=== PATIENT | male | born 1940 | race Caucasian/White ===

== ENCOUNTER 2017-03-23 10:47 | Inpatient (IN) | payer MEDICARE ==
[2017-03-23 11:44] LABS: #Eosinphils 0.3 thou/uL (0.0-0.7); #Lymphocytes 1.4 thou/uL (1.20-3.40); #Monocytes 0.9 thou/uL (0.11-0.59); #Neutrophils 5.5 thou/uL (1.40-6.50); %Basophils 0.5 % (0.0-1.0); %Eosinophils 3.5 % (0.0-10.0); Hematocrit 31.6 % (42.0-52.0); Red Blood Cell (RBC) Count 3.27 mill/uL (4.70-6.10); White Blood Cell (WBC) Count 8.1 thou/uL (4.8-10.8)
[2017-03-23 11:58] LABS: Bilirubin Negative (Negative); Blood, Urine Negative (Negative); Glucose, Urine (Dipstick) 100 mg/dL (Negative); Ketone, Urine Negative (Negative); Nitrite Negative (Negative); Protein, Urine (Dipstick) 300 mg/dL (Neg-Trace); Urobilinogen 0.2 mg/dL (0.2-1.0)
[2017-03-23 12:00] LABS: Lactic Acid - Sepsis 1.5 mmol/L (0.5-2.2)
[2017-03-23 12:03] LABS: Bacteria/HPF None Seen HPF (None Seen); Hyaline Casts/LPF 0-3 HYALINE CAST LPF (0-3 Hyaline); Squamous Epithelial None Seen HPF (0-3); WBC/HPF None Seen HPF (0-3)
[2017-03-23 12:06] LABS: ALT (SGPT) 33 U/L (8-55); AST (SGOT) 21 U/L (5-34); Alkaline Phosphatase 53 U/L (40-150); Anion Gap 14 mmol/L (10-20); BUN (Urea Nitrogen) 30 mg/dL (8.4-25.7); Bilirubin, Total 0.4 mg/dL (0.2-1.2); CK (CPK) 81 U/L (30-200); Calc. Creatinine Clearance 0 mL/min (70-130); Calcium 9.5 mg/dL (7.8-10.44); Carbon Dioxide 24 mmol/L (23-31); Chloride 94 mmol/L (98-107); Estimated GFR-MDRD 25; Globulin 3.3 g/dL (2.4-3.5); Lipase 34 U/L (8-78); Protein, Total 7.2 g/dL (5.8-8.1)
[2017-03-23 12:16] LABS: Troponin I 0.014 ng/mL (< 0.028)
--- NOTE | 2017-03-23 12:16 | RAD ---
CHEST 1 VIEW: HISTORY: Dyspnea. COMPARISON: 06/22/16. FINDINGS: The cardiac silhouette is magnified and enlarged. Pulmonary vasculature is upper limits of normal. Mediastinum is midline with aortic calcification and postoperative changes. Old right rib fracture s are evident. IMPRESSION: Cardiomegaly. No evidence of pulmonary edema. POS: [facility]
[2017-03-23 12:55] LABS: Oxyhemoglobin 96.3 % (94.0-97.0); Sodium 128 mmol/L (135-148)
[2017-03-23] MEDS ORDERED: Calcium Carbonate 500 MG ChewTAB PO PRN (12:55)
[2017-03-23] MEDS ORDERED: Guaifenesin DM 100-10/5 ML UDCUP PO PRN (12:55)
[2017-03-23] MEDS ORDERED: Acetaminophen 325 MG TAB PO PRN (12:55)
[2017-03-23] MEDS ORDERED: Ondansetron HCl/PF 4 MG/2 ML Vial IVP PRN (12:55)
--- NOTE | 2017-03-23 12:56 | CT ---
CT BRAIN WITHOUT CONTRAST: HISTORY: Altered mental status. Confusion. FINDINGS: Noncontrast-enhanced CT images of the brain are obtained from the base of the skull through the vert ex. Brain and bone windows are obtained. Noncontrast-enhanced CT images of the brain demonstrate calcification of the right and left vertebra l arteries. There is mild cortical atrophy and deep white matter ischemic changes. No acute intrac ranial masses, hemorrhages, strokes, or contusions seen. IMPRESSION: Cortical atrophy and deep white matter ischemic changes. POS: [facility]
[2017-03-23 13:00] LABS: Mode BIPAP; Pressure Support 10 cmH2O; Vent NO
[2017-03-23] MEDS ORDERED: Enoxaparin Sodium 40 MG/0.4 ML SYRINGE SC SCH (13:00)
[2017-03-23] MEDS ORDERED: HumaLOG 300 UNITS/3 ML VIAL SC PRN (13:01)
[2017-03-23] MEDS ORDERED: Dextrose 5% in Water 1,000 ML IV PRN ×2 (13:01→14:16)
[2017-03-23] MEDS ORDERED: Dextrose 50% Abboject 50 ML SYRINGE SLOW IVP PRN ×2 (13:01→14:16)
[2017-03-23] MEDS ORDERED: Furosemide 40 MG/4 ML VIAL ONE (13:21)
[2017-03-23] MEDS ORDERED: Enoxaparin Sodium 40 MG/0.4 ML SYRINGE ONE (13:21)
--- NOTE | 2017-03-23 14:21 | PDOC.EVN ---
Event Note - Event Note Event Note: pt seen and examined. H & p dictated #[id number]
[2017-03-23] MEDS ORDERED: Nitroglycerin 2% Ointment 1 INCH/1 GM Packet ONE (14:23)
[2017-03-23 15:26] LABS: Troponin I 0.016 ng/mL (< 0.028)
--- NOTE | 2017-03-23 15:36 | HP ---
CHIEF COMPLAINT: Shortness of breath. HISTORY OF PRESENT ILLNESS: The patient is a 77-year-old male with past medical history significant for type 2 diabetes mellitus; hypertension; coronary artery disease, status post coronary artery by pass surgery; peripheral vascular disease; right BKA and left BKA. The patient presented to the ER with some confusion. The patient was extremely short of breath as per family, he also had cough. I n the ER, the patient was noted to have respiratory distress and was placed on BiPAP, the patient im proved and his mental status cleared. He was found to have congestive heart failure and he has been admitted for this problem. Patient lives alone. He is awake at this time and says shortness of br eath is better. He only is having some discomfort, tolerating the BiPAP. He denies any chest pain. He denies any wheezing. He did have a dry cough at home. He denies any abdominal pain, nausea, o r vomiting. PAST MEDICAL HISTORY: 1. Type 2 diabetes mellitus. 2. PVD. 3. Hypertension. 4. Coronary artery disease. 5. Status post coronary artery bypass surgery. 6. Bilateral lower extremity amputation. PAST SURGICAL HISTORY: He has had bypass surgery and amputation. The patient has a pilonidal cyst surgery and left wrist surgery. ALLERGIES: AMBIEN. MEDICATION: Medication list is not available to me. SOCIAL HISTORY: The patient lives alone. He denies any current history of smoking. He says used t o smoke in the past. Denies substance abuse or ETOH abuse. REVIEW OF SYSTEMS: Constitutional: No history of fever, weight loss, or weight gain. HEENT: No v isual disturbances, hearing problems, no difficulty in chewing or swallowing. No headache. Cardiac : As per history of present illness. Respiratory: As per history of present illness. Gastrointes tinal: No abdominal pain, nausea, vomiting, diarrhea, black stools or blood in stools. Genitourina ry: No dysuria, burning, frequency, or hematuria. Neurological: As per history of present illness . No history of tingling, numbness, or focal weakness. Patient is nonambulatory. Hematological: No history of easy bruising or bleeding. Musculoskeletal: The patient has bilateral lower extremit y amputee. Skin: No petechia or rashes. PHYSICAL EXAMINATION: GENERAL: This is a morbidly obese elderly male who is on BiPAP. He is awake, but still appears sli ghtly short of breath. VITAL SIGNS: His blood pressure on admission was 183/56, temperature 98, pulse rate is 74, sinus rh ythm on the monitor, O2 sat of 97.8, respirations 22. HEENT: Normocephalic, atraumatic. Pupils are reactive to light and accommodation. No pallor, no i cterus. Oral cavity shows tongue is central. No central cyanosis or pallor. NECK: Supple. No thyromegaly, no JVD, no bruit. CHEST: Diminished breath sounds at bases, bilateral crackles present. CARDIOVASCULAR: S1, S2 normal. No S3, S4, or murmur. ABDOMEN: Morbidly obese, soft, nontender. Bowel sounds active. No guarding or rebound. No free f luid, no masses. NEUROLOGICAL: No focal deficit. EXTREMITIES: The patient has bilateral lower extremity amputee. LABORATORY DATA: White count is 8.1, hemoglobin 10.8, hematocrit 31.6, platelet count is 218. Sodi um 127, potassium 4.8, chloride 94, CO2 of 24, anion gap 14, BUN 30, creatinine 2.48. This is sligh tly elevated as compared to his previous visit in December. Glucose 220. BNP 600. As per previous rec ords, he had 2D echo in 06/2016. EF is 40% to 45%. ABG done in the ER shows pH of 7.41, pO2 of 115 , this is on FIO2 of 30%, pCO2 37.9. UA shows proteinuria and glycosuria, otherwise unremarkable. Chest x-ray shows cardiomegaly, no evidence of pulmonary edema. Old right rib fractures. CT of hea d shows chronic changes, other than no acute abnormality. ASSESSMENT AND PLAN: 1. Acute respiratory failure. 2. Hypertensive urgency. 3. Congestive heart failure. 4. Left ventricle ejection fraction of 40% to 45% in 12/2016. 5. Anemia of chronic disease. 6. Acute renal failure/chronic kidney disease. 7. Peripheral vascular disease. 8. Status post bilateral amputation. 9. Dilutional hyponatremia. 10. Uncontrolled diabetes mellitus. 11. Morbid obesity. At this present time, the patient will be transferred to IMU. We are going to start him on IV Lasix . We will adjust his blood pressure medication. Continue with BiPAP. We will get Cardiology and P ulmonary consultation. We will adjust his diabetic medication, put him on sliding scale insulin cov erage. We will check another echocardiogram since the last one was more than 6 months ago. We will follow serial cardiac isoenzymes. We will monitor his renal function. Add Lovenox for DVT prophyl axis. We will also check a D-dimer. The patient is at risk for having PE given he is relative immo bility. We will review his home medication, Protonix for stress ulcer prophylaxis. Further recomme ndations will be made depending on course of clinical events.
[2017-03-23 16:53] VITALS: BMI 41.2
[2017-03-23] MEDS: Furosemide 40 MG/4 ML VIAL SLOW IVP SCH (17:34)
[2017-03-23] MEDS: Insulin Regular 300 UNITS/3 ML VIAL SC PRN (18:01)
[2017-03-23 18:10] LABS: Troponin I 0.028 ng/mL (< 0.028)
[2017-03-23] MEDS: Carvedilol 25 MG TAB PO SCH (20:39)
[2017-03-23] MEDS ORDERED: Docusate 100 MG CAP PO SCH (21:00)
[2017-03-24 05:10] LABS: Anion Gap 14 mmol/L (10-20); BUN (Urea Nitrogen) 34 mg/dL (8.4-25.7); Calc. Creatinine Clearance 31 mL/min (70-130); Calcium 9.3 mg/dL (7.8-10.44); Carbon Dioxide 25 mmol/L (23-31); Chloride 96 mmol/L (98-107); Estimated GFR-MDRD 24
[2017-03-24 05:49] LABS: Hematocrit 30.7 % (42.0-52.0); Macrocytosis SLIGHT = 6-15 cells (100X) (0-5/hpf); Mean Platelet Volume 7.2 fL (7.4-10.4); Neutrophil 53 % (42-75); Polychromasia SLIGHT = 2-3 cells (100X) (0-2/hpf); Reactive Lymphocytes 1 % (0-10); Red Blood Cell (RBC) Count 3.17 mill/uL (4.70-6.10); White Blood Cell (WBC) Count 5.9 thou/uL (4.8-10.8)
[2017-03-24] MEDS: Insulin Regular 300 UNITS/3 ML VIAL SC PRN ×2 (05:59→11:28)
[2017-03-24] MEDS: Furosemide 40 MG/4 ML VIAL SLOW IVP SCH ×2 (05:59→14:22)
[2017-03-24] MEDS ORDERED: Spironolactone 25 MG TAB PO SCH (08:00)
[2017-03-24] MEDS: Docusate 100 MG CAP PO SCH (09:24)
[2017-03-24] MEDS: Alogliptin Benzoate 6.25 MG TABLET PO SCH (09:24)
[2017-03-24] MEDS: Carvedilol 25 MG TAB PO SCH ×2 (09:24→20:40)
[2017-03-24] MEDS: Aspirin 81 mg Enteric Coated Tablet PO SCH (09:24)
[2017-03-24] MEDS: Enoxaparin Sodium 30 MG/0.3 ML SYRINGE SC SCH (09:25)
[2017-03-24] MEDS: Famotidine/PF 20 mg/2ml Vial SLOW IVP SCH (09:25)
--- NOTE | 2017-03-24 12:11 | PDOC.PN ---
- Subjective Encounter Start Date: 03/24/17 Encounter Start Time: 10:45 -: non-verbal Pt seen and examined. Non verbal and hard to arouse. Chart reviewe din its entrety. Skyla sis my first visit with this patient. No Fevers, actually hypothermic and required Madison Hugger overnight, now more stable. BP stablized more andmore overnight iwth fluids, no in the low normal range. Pt non verbal, ROS not obtainable - Objective Resuscitation Status: FULL MAR Reviewed: Yes Vital Signs & Weight: Vital Signs (12 hours) Temp Pulse Resp BP BP Pulse Ox 03/24/17 11:23 98.2 F 67 20 124/56 L 95 03/24/17 09:25 156/75 H 03/24/17 09:24 69 03/24/17 07:21 98.3 F 69 22 H 95 03/24/17 06:50 97.7 F 65 20 148/37 H 94 L 03/24/17 04:00 98.3 F 69 22 H 145/57 H 96 Weight Weight 210 lb 8 oz I&O: 03/23/17 03/24/17 03/25/17 06:59 06:59 06:59 Intake Total 580 Output Total 950 500 Balance -370 -500 Result Diagrams: 03/24/17 04:27 03/24/17 04:27 Additional Labs: Accuchecks 03/24/17 03/24/17 03/23/17 10:54 05:52 20:13 POC Glucose 270 H 170 H 217 H 03/23/17 16:59 POC Glucose 240 H Radiology Reviewed by me: Yes EKG Reviewed by me: Yes Phys Exam - Physical Examination cachectic, [id number]-[id number] HEENT: sclera anicteric, oral pharynx no lesions mucous membranes dry, no lesions Neck: no nodes, no JVD, supple right dense crackles, left areated well Cardiovascular: RRR, no significant murmur, no rub Gastrointestinal: soft, non-tender, 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, positive bowel sounds Musculoskeletal: pulses present, edema present doesnt follow commands Lymphatic: no nodes Skin: no rash Deviation from normal: mild dehydration Dx/Plan (1) CKD (chronic kidney disease) stage 3, GFR 30-59 ml/min Code(s): N18.3 - CHRONIC KIDNEY DISEASE, STAGE 3 (MODERATE) Status: Chronic (2) Hyponatremia Code(s): E87.1 - HYPO-OSMOLALITY AND HYPONATREMIA Status: Acute (3) Severe sepsis Code(s): A41.9 - SEPSIS, UNSPECIFIED ORGANISM; R65.20 - SEVERE SEPSIS WITHOUT SEPTIC SHOCK Status: Resolved Comment: CP has come upwith fluids, JUAN, hypothermia, tachycardia, bacterial pneumonia (4) JUAN (acute kidney injury) Code(s): N17.9 - ACUTE KIDNEY FAILURE, UNSPECIFIED Status: Acute Comment: acute kidney injury on CKD 3. caseline Cr around 1.6-2. At 2.58 at present (5) Acute on chronic combined systolic and diastolic heart failure Code(s): I50.43 - ACUTE ON CHRONIC COMBINED SYSTOLIC AND DIASTOLIC HRT FAIL Status: Acute Comment: ef 40-45%. decreaase IV fluids now that BP is more normal (6) CAP (community acquired pneumonia) Code(s): J18.9 - PNEUMONIA, UNSPECIFIED ORGANISM Status: Acute Qualifiers: Laterality: right Lung location: unspecified part of lung Qualified Code( s): J18.9 - Pneumonia, unspecified organism Comment: susp Pneumococcus (7) Diabetes Code(s): E11.9 - TYPE 2 DIABETES MELLITUS WITHOUT COMPLICATIONS Status: Chronic Qualifiers: Diabetes mellitus type: type 2 Diabetes mellitus complication status: without complication Diabetes mellitus mcfp insulin use: without worm raiser use Qualified Code(s): E11.9 - Type 2 diabetes mellitus without complications (8) HTN (hypertension) Code(s): I10 - ESSENTIAL (PRIMARY) HYPERTENSION Status: Chronic - Plan cont current plan of care, continue antibiotics, PT/OT, social services assistant, respiratory therapy * .
--- NOTE | 2017-03-24 12:30 | PDOC.PN ---
- Subjective Encounter Start Date: 03/24/17 Encounter Start Time: 10:45 Pt seen and examined on rounds, chart reviewed in its entirety. This is my first visit with this patient NO f/C, no n/V/D/C. weaned off of O2 overnight. Breathing stable. urinating well in response to diuretics. Up to chair earlier with prosthetic leg in place. No complaints, no new complaints - Objective Resuscitation Status: Full MAR Reviewed: Yes Vital Signs & Weight: Vital Signs (12 hours) Temp Pulse Resp BP BP Pulse Ox 03/24/17 11:23 98.2 F 67 20 124/56 L 95 03/24/17 09:25 156/75 H 03/24/17 09:24 69 03/24/17 07:21 98.3 F 69 22 H 95 03/24/17 06:50 97.7 F 65 20 148/37 H 94 L 03/24/17 04:00 98.3 F 69 22 H 145/57 H 96 Weight Weight 210 lb 8 oz I&O: 03/23/17 03/24/17 03/25/17 06:59 06:59 06:59 Intake Total 580 Output Total 950 500 Balance -370 -500 Result Diagrams: 03/24/17 04:27 03/24/17 04:27 Additional Labs: Accuchecks 03/24/17 03/24/17 03/23/17 10:54 05:52 20:13 POC Glucose 270 H 170 H 217 H 03/23/17 16:59 POC Glucose 240 H Radiology Reviewed by me: Yes EKG Reviewed by me: Yes Phys Exam - Physical Examination Constitutional: NAD HEENT: PERRLA, moist MMs, sclera anicteric, oral pharynx no lesions Neck: no nodes, no JVD, supple, full ROM Respiratory: no wheezing, no rhonchi bibasilar rale,s fine, do not clear with inspriation Cardiovascular: RRR, no significant murmur, no rub Gastrointestinal: soft, non-tender, 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, positive bowel sounds left high AKA, right BKA, stumps without edema Neurological: non-focal, normal sensation, moves all 4 limbs Lymphatic: no nodes Psychiatric: normal affect, A&O x 3 Skin: no rash, normal turgor, cap refill <2 seconds Dx/Plan (1) Acute on chronic combined systolic and diastolic heart failure Code(s): I50.43 - ACUTE ON CHRONIC COMBINED SYSTOLIC AND DIASTOLIC HRT FAIL Status: Acute Comment: ef 40-45%. respondign well to diuresis, followup on I /O. (2) CKD (chronic kidney disease) stage 3, GFR 30-59 ml/min Code(s): N18.3 - CHRONIC KIDNEY DISEASE, STAGE 3 (MODERATE) Status: Chronic Comment: followed by Dr Sainz (3) Hyponatremia Code(s): E87.1 - HYPO-OSMOLALITY AND HYPONATREMIA Status: Acute (4) JUAN (acute kidney injury) Code(s): N17.9 - ACUTE KIDNEY FAILURE, UNSPECIFIED Status: Acute Comment: acute kidney injury on CKD 3. caseline Cr around 1.6-2. At 2.58 at presentIf worse tomorrow, may need to call Dr Sainz. May be related to cardiorenal syndrome (5) Diabetes Code(s): E11.9 - TYPE 2 DIABETES MELLITUS WITHOUT COMPLICATIONS Status: Chronic Qualifiers: Diabetes mellitus type: type 2 Diabetes mellitus complication status: without complication Diabetes mellitus terminal worker insulin use: without fpc use Qualified Code(s): E11.9 - Type 2 diabetes mellitus without complications (6) HTN (hypertension) Code(s): I10 - ESSENTIAL (PRIMARY) HYPERTENSION Status: Chronic Qualifiers: Hypertension type: essential hypertension Qualified Code(s): I10 - Essential (primary) hypertension - Plan * .
--- NOTE | 2017-03-24 18:38 | CON ---
DATE OF CONSULTATION: 03/24/2017 HISTORY OF PRESENT ILLNESS: Mr. Amrik Mancera is a 77-year-old white male who I initially evaluated on 07/25/2008 in the hospital. He, previously, had bilateral scegq-fdg-aupj amputations due to peripheral vascular disease and diabetes. He had an infection in his left stump and underwent incision and drainage by Dr. Lan of a deep abscess. The area continued to have abscess formation and then, he underwent left byefc-dkh-qxmo amputation. The day prior to when he was initially seen, he complained of sharp stabbing chest pain accompanied by shortness of breath but no nausea, vomiting, or diaphoresis. The pain would last for 1-2 minutes. He underwent adenosine Cardiolite testing after he had negative cardiac enzymes. This revealed a prominent area of ischemia with some probable central infarction involving the posterolateral wall. There was mild hypokinesis of the inferoseptal region with an ejection fraction of 40%. Echo also revealed left atrial and left ventricular enlargement with normal left ventricular systolic function, mitral annular calcification, moderate mitral regurgitation, and mild tricuspid regurgitation. There was an ongoing infection and need for IV antibiotics, it was felt that cardiac catheterization was not indicated at that time and he should be treated medically until he had completed his IV antibiotics. He then returned to the hospital on 09/06/2008 after 1 month of IV antibiotics to undergo cardiac catheterization. He had severe left ventricular global hypokinesis with an ejection fraction of 25% to 30%. There was a 60% left main , 50% proximal LAD, and 50% distal LAD. The circumflex had a 70% proximal stenosis. The distal circumflex was totally occluded and the obtuse marginals filled retrograde from the left. The right coronary artery had a long proximal and mid 50% stenosis and then a 99% stenosis. There was a 50% distal stenosis. There was faint retrograde filling of the distal right coronary artery from the left. He then underwent CABG x3 by Dr. Ry Wolff with FELDMAN to the LAD, saphenous vein graft to the diagonal and saphenous vein graft to the distal right coronary artery. 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 He had a fairly uneventful postoperative course. He did have an improvement in his left ventricular function post surgery. Ejection fraction in 04/2013 on echo was 50% to 55% with evidence of diastolic dysfunction. He did well until 07/2013. When 8:30 in the evening, began to have left-sided chest burning. It was somewhat different than the pain he had prior to bypass surgery. This did not radiate to the left arm like his pain did before. He had mild shortness of breath. No nausea, vomiting, or diaphoresis. The burning pain would last 5-10 seconds but resolved and recurred 5 minutes later. He had multiple recurrences of this and ultimately called 911. He was given nitroglycerin in the emergency room and did not have any further episodes of chest discomfort. Cardiac enzymes were unremarkable. He underwent Cardiolite testing which revealed areas of mild reversibility involving the anterior, inferior, and lateral knott. Ejection fraction was 63%. He then underwent cardiac catheterization. Left ventriculogram revealed moderate mid inferior wall and mild global hypokinesis with an ejection fraction of 40% to 45%. There was a 60% left main. The mid LAD was totally occluded. There was a 50% distal LAD lesion. The circumflex had a 70% proximal stenosis and total occlusion of the distal circumflex with distal obtuse marginals filling retrograde. The third obtuse marginal filled from the left coronary artery and the left posterior descending filled from the right coronary artery graft. The right coronary artery was totally occluded in its mid portion. Bypass grafts revealed patent FELDMAN to the LAD. He had a diagonal graft that also was patent. The right coronary artery graft was aneurysmal in its distal portion but was patent. He did well until 06/2016 when he presented with 2 weeks of increased dyspnea. He denied any chest discomfort. Echocardiogram during that admission revealed mild left ventricular dysfunction with an ejection fraction of 40% to 45%, left atrial enlargement, left ventricular size was normal, mild mitral regurgitation , and evidence for diastolic dysfunction. It was felt that he had chronic systolic/diastolic heart failure along with community-acquired pneumonia and was treated with diuretics as well as azithromycin. He returned for followup in 08/2016. He had not been taking the Lasix 20 as he should have been. He also was on enalapril and spironolactone 25 mg daily. His potassium was 5.5. His creatinine had increased from 1.75 to 2.30. Enalapril and Aldactone were discontinued and he was placed back on his Lasix 20 mg daily. He was seen several weeks later and his creatinine had fallen from 2.2 down to 1.96. He was last seen in the office in 10/2016. He denied having any shortness of breath or chest discomfort during that followup. He was supposed to return 6 weeks later with labs; however, I have not seen him since October. He now presents complaining of increased shortness of breath for 1-2 days prior to admission. He has had some cough productive of clear sputum but no color change. He denies any fever. He apparently had some respiratory distress at home as well as some mental status changes, was brought to the emergency room and placed on BiPAP and diuresed. At the present time, he states that his breathing has dramatically improved. He denies any chest discomfort. PAST MEDICAL HISTORY: Hypertension, diabetes, hyperlipidemia, peripheral vascular disease. PAST SURGICAL HISTORY: CABG, bilateral ixsar-tlf-ehhq amputations and then left fkeff-peh-qwki amputation, pilonidal cyst removal, and repair of a broken left wrist. MEDICATIONS: Amlodipine 5 mg daily, aspirin 81 daily, atorvastatin 80 daily, carvedilol 25 b.i.d., Colace 100 daily, furosemide 20 daily, Glucotrol 5 mg daily, hydralazine 50 t.i.d., metformin 1000 b.i.d., and Januvia 50 daily. ALLERGIES: AMBIEN. SOCIAL HISTORY: He smoked until 23 years ago. He does not drink alcohol. He used to work in the [employer]. He is a with 4 stepchildren. REVIEW OF SYSTEMS: A twelve-point review of systems, otherwise, unremarkable. PHYSICAL EXAMINATION: VITAL SIGNS: 124/56, pulse 68. HEENT: PERRL. NECK: Supple. CHEST: Clear but distant. CARDIOVASCULAR: S1 and S2 are normal, without any S3, S4, or murmurs. Carotid upstrokes are normal, without bruits. ABDOMEN: Normal bowel sounds, without tenderness or organomegaly. EXTREMITIES: Revealed left pzniv-ron-ipsn amputation, right skjsh-bzh-hpqy amputation without edema. NEUROLOGIC: Grossly intact. SKIN: Warm and dry. LABORATORY AND IMAGING DATA: EKG reveals normal sinus rhythm and is unremarkable. Hemoglobin 10.4, hematocrit 30.7, white count 5900, platelets 193 ,000. D-dimer 1.34. PH 7.41, pCO2 of 37.9, pO2 of 115.4. Sodium 131, potassium 4.1, chloride 96, carbon dioxide 25, BUN 34, creatinine 2.58. Troponin I is normal. BNP 600.9. IMPRESSION: 1. Probable acute on chronic systolic congestive heart failure with the possibility of a diastolic component. He certainly could also have a component of chronic obstructive pulmonary disease exacerbation. 2. Status post coronary artery bypass graft x3 with grafts patent in 02/2014. 3. Ischemic cardiomyopathy with an ejection fraction of 25% to 30% prior to bypass surgery, which improved to 50% to 55% but then more recently has been seen to be 40% to 45%. 4. Hypercholesterolemia, under good control in the past. 5. Hypertension, poorly controlled. He states that at home his blood pressures usually run in the 160s to 170s. 6. Former smoker. 7. Peripheral vascular disease - uupau-mtd-xchp amputation on the left and right xqlog-wsc-gwch amputation. 8. Diabetes. 9. Resection of lipomatous hypertrophy of the atrial septum at the time of bypass surgery. 10. Chronic kidney disease. PLAN: The patient will continue to be diuresed and renal function will be watched closely. In the past, his creatinine has gone up and he has been hyperkalemic while on spironolactone and enalapril and I feel that those should be discontinued. Hydralazine dose will be increased for better blood pressure control. Echo will be performed to reassess left ventricular function. He will continue to be watched. He is somewhat noncompliant with his followups at times. Also, Dr. Sainz, his paver installer, will be consulted. [facility]
[2017-03-25 05:47] LABS: #Eosinphils 0.2 thou/uL (0.0-0.7); #Lymphocytes 2.2 thou/uL (1.20-3.40); #Monocytes 0.9 thou/uL (0.11-0.59); #Neutrophils 3.1 thou/uL (1.40-6.50); %Basophils 0.6 % (0.0-1.0); %Eosinophils 3.8 % (0.0-10.0); %Lymphocytes 34.7 % (21.0-51.0); %Monocytes 13.2 % (0.0-10.0); Hematocrit 33.3 % (42.0-52.0); Mean Platelet Volume 7.2 fL (7.4-10.4); Red Blood Cell (RBC) Count 3.47 mill/uL (4.70-6.10); White Blood Cell (WBC) Count 6.4 thou/uL (4.8-10.8)
[2017-03-25] MEDS: Furosemide 40 MG/4 ML VIAL SLOW IVP SCH (06:00)
[2017-03-25 06:27] LABS: Anion Gap 16 mmol/L (10-20); BUN (Urea Nitrogen) 40 mg/dL (8.4-25.7); Calc. Creatinine Clearance 28 mL/min (70-130); Calcium 9.3 mg/dL (7.8-10.44); Carbon Dioxide 25 mmol/L (23-31); Chloride 94 mmol/L (98-107); Cholesterol 123 mg/dl (< 200 Desired); Estimated GFR-MDRD 21; LDL Cholesterol, Calculated 72 mg/dL
--- NOTE | 2017-03-25 09:18 | CON ---
DATE OF CONSULTATION: 03/25/2017 HISTORY OF PRESENT ILLNESS: Mr. Mancera is a 77-year-old white male who was admitted for congestiv e heart failure. He has been started on IV diuretics. His breathing is much improved. We are now being consulted for his acute kidney injury on top of his chronic renal failure. Please note his ba seline creatinine as an outpatient was 1.77 mg percent. Over the last few days, this has worsened t o a most recent value of about 2.9 mg percent. Please note he is on IV diuretics. The patient is feeling better, breathing is much improved. REVIEW OF SYSTEMS: No chest pain, currently no shortness of breath, no nausea, no vomiting, no diar brandy, no constipation, no syncopal episode, no productive cough, no fever or chills, no headache, no diplopia, no abdominal pain. No gross hematuria. No dysuria, no urinary frequency. MEDICATIONS: Alogliptin 6.25 mg daily, Ecotrin 81 mg daily, Tums 1000 mg q.4 h. p.r.n., furosemide 40 mg IV q.12 h., famotidine 20 mg IV daily, Humulin R sliding scale, Zofran 4 mg IV q.6 h., spiron olactone/enalapril - currently on hold. PAST MEDICAL HISTORY: 1. Type 2 diabetes mellitus. 2. ? Syndrome of inappropriate antidiuretic hormone secretion. 3. Hyperlipidemia. 4. Peripheral vascular disease. 5. Coronary artery disease. 6. Peripheral neuropathy. 7. COPD. 8. Diverticulosis. 9. Status post gastric ulcer. PAST SURGICAL HISTORY: 1. Status post right BKA. 2. Status post left AKA. 3. Status post cardiac catheterization. 4. Status post CABG. 5. Status post upper/lower GI endoscopy. 6. Status post left knee surgery for fracture. SOCIAL HISTORY: The patient lives in [place]. Four children, all stepchildren. . Smoked fo r 50 years, 2 packs a day. Alcohol none. Education; high school. Retired [employer]. Status post blood transfusion. No IV drug abuse. Sedentary lifestyle. ALLERGIES: None. TRAUMA: Status post left knee fracture. IMMUNIZATIONS: Up to date. HOSPITALIZATIONS: Please see past medical history. FAMILY HISTORY: No family history of ESRD. PHYSICAL EXAMINATION: VITAL SIGNS: Blood pressure is 129/78, heart rate 66, respiratory rate 18, temperature 98.2, pulse ox 94%. GENERAL: Awake, alert, sitting comfortable, not in distress. SKIN: Adequate turgor. HEENT: Pinkish conjunctivae, anicteric sclerae. NECK: No neck mass, no carotid bruits, no JVD. CHEST: No deformities. LUNGS: Decreased breath sounds. No wheezing. HEART: Normal sinus rhythm. No murmur, no gallops or rubs. ABDOMEN: Globular, soft, nontender, no masses. EXTREMITIES: No edema, no deformities. The patient is status post right BKA. Status post left AKA , positive for right leg prosthesis. LABORATORY: 03/25/2017 - White count 6.4, hemoglobin 11.1. Sodium 131, potassium 3.8, chloride 94, carbon dioxide 25, BUN 40, creatinine 2.91, glucose 135, calcium 9.3, triglycerides 140, cholestero l 123, HDL 23. LDL 72. ASSESSMENT AND PLAN: 1. Acute kidney injury on top of his chronic renal failure - superimposed hemodynamically mediated renal dysfunction secondary to congestive heart failure and current diuretic regimen. Please note, he was also on spironolactone and on an YEYO inhibitor when he came in. The plan is to hold those me dications. We will adjust furosemide as needed. If the renal function further worsens by tomorrow, consider decreasing furosemide to once a day dosing. Currently he is on 40 mg IV q.12 hours. The re is no indication for any dialytic intervention with this patient at the present time. 2. Congestive heart failure, clinically improved. Last EF was 40-45%. He is currently on a diuret ic regimen. As previously mentioned, we will adjust diuretics as needed. Recheck base met and CBC in a.m.
[2017-03-25] MEDS: Insulin Regular 300 UNITS/3 ML VIAL SC PRN ×2 (09:45→18:12)
[2017-03-25] MEDS: Docusate 100 MG CAP PO SCH (09:45)
[2017-03-25] MEDS: Aspirin 81 mg Enteric Coated Tablet PO SCH (09:45)
[2017-03-25] MEDS: Enoxaparin Sodium 30 MG/0.3 ML SYRINGE SC SCH (09:45)
[2017-03-25] MEDS: Carvedilol 25 MG TAB PO SCH ×2 (09:45→20:37)
[2017-03-25] MEDS: Alogliptin Benzoate 6.25 MG TABLET PO SCH (09:45)
[2017-03-25] MEDS: Famotidine/PF 20 mg/2ml Vial SLOW IVP SCH (10:13)
--- NOTE | 2017-03-25 13:43 | PDOC.PN ---
- Subjective Encounter Start Date: 03/25/17 Encounter Start Time: 09:20 -: old records requested/rev Pt seen and examined earlier on rounds. Sitting up in Wheelchair, prosthetic leg on right stump. Dr Mccray just left, Dr Sainz in earlier. Aldactone and lisinopril on hold, changed to po lasix. Pt states breathing is at baseline, no F/c, no n/V/D/C, no CP. Cr up a little firther, No plans to change current regimen per Dr Sainz. 10 point ROS performed and neg for all systems except as per HPI - Objective Resuscitation Status: Full MAR Reviewed: Yes Vital Signs & Weight: Vital Signs (12 hours) Temp Pulse Resp BP BP Pulse Ox 03/25/17 09:45 72 150/70 H 03/25/17 04:00 98.2 F 66 18 129/78 94 L Weight Weight 210 lb 8 oz I&O: 03/24/17 03/25/17 03/26/17 06:59 06:59 06:59 Intake Total 580 250 Output Total 950 1350 Balance -370 -1100 Result Diagrams: 03/25/17 05:10 03/25/17 05:10 Additional Labs: Accuchecks 03/25/17 03/24/17 03/24/17 06:35 21:39 17:26 POC Glucose 160 H 171 H 114 H Radiology Reviewed by me: Yes EKG Reviewed by me: Yes Phys Exam - Physical Examination Constitutional: NAD HEENT: PERRLA, moist MMs, sclera anicteric, oral pharynx no lesions Neck: no nodes, no JVD, supple, full ROM Respiratory: no wheezing, no rhonchi poor air movement bilaterally. fine bibasilar crackles heard posrteriorly Cardiovascular: RRR, no significant murmur, no rub Gastrointestinal: soft, non-tender, 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, positive bowel sounds Left AKa, right BKA Neurological: non-focal, normal sensation, moves all 4 limbs Lymphatic: no nodes Psychiatric: normal affect, A&O x 3 Skin: no rash, normal turgor, cap refill <2 seconds Dx/Plan (1) Acute on chronic combined systolic and diastolic heart failure Code(s): I50.43 - ACUTE ON CHRONIC COMBINED SYSTOLIC AND DIASTOLIC HRT FAIL Status: Acute Comment: ef 40-45%. responding well to diuresis, followup on I /O. changed to po lasix, aldactone and lisinopril on hold (2) CKD (chronic kidney disease) stage 3, GFR 30-59 ml/min Code(s): N18.3 - CHRONIC KIDNEY DISEASE, STAGE 3 (MODERATE) Status: Chronic Comment: followed by Dr Sainz. Baseline Cr around 2 (3) Hyponatremia Code(s): E87.1 - HYPO-OSMOLALITY AND HYPONATREMIA Status: Acute (4) JUAN (acute kidney injury) Code(s): N17.9 - ACUTE KIDNEY FAILURE, UNSPECIFIED Status: Acute Comment: acute kidney injury on CKD 3. caseline Cr around 1.6-2. At 2.92 at present. combination of cardiorenal and diuresis. (5) Diabetes Code(s): E11.9 - TYPE 2 DIABETES MELLITUS WITHOUT COMPLICATIONS Status: Chronic Qualifiers: Diabetes mellitus type: type 2 Diabetes mellitus complication status: without complication Diabetes mellitus skilled nursing insulin use: without skilled nursing use Qualified Code(s): E11.9 - Type 2 diabetes mellitus without complications (6) HTN (hypertension) Code(s): I10 - ESSENTIAL (PRIMARY) HYPERTENSION Status: Chronic Qualifiers: Hypertension type: essential hypertension Qualified Code(s): I10 - Essential (primary) hypertension - Plan cont current plan of care, social work administrator, out of bed/ambulate, DVT proph w/ lovenox * .
[2017-03-26 05:52] LABS: #Eosinphils 0.2 thou/uL (0.0-0.7); #Lymphocytes 1.9 thou/uL (1.20-3.40); #Monocytes 0.7 thou/uL (0.11-0.59); #Neutrophils 2.8 thou/uL (1.40-6.50); %Basophils 0.4 % (0.0-1.0); %Eosinophils 3.3 % (0.0-10.0); %Lymphocytes 34.1 % (21.0-51.0); %Monocytes 12.1 % (0.0-10.0); Hematocrit 29.8 % (42.0-52.0); Mean Platelet Volume 7.1 fL (7.4-10.4); Red Blood Cell (RBC) Count 3.11 mill/uL (4.70-6.10); White Blood Cell (WBC) Count 5.7 thou/uL (4.8-10.8)
[2017-03-26 06:03] LABS: Anion Gap 14 mmol/L (10-20); BUN (Urea Nitrogen) 47 mg/dL (8.4-25.7); Calc. Creatinine Clearance 28 mL/min (70-130); Calcium 8.9 mg/dL (7.8-10.44); Carbon Dioxide 25 mmol/L (23-31); Chloride 94 mmol/L (98-107); Estimated GFR-MDRD 21
--- NOTE | 2017-03-26 09:02 | PRG ---
DATE OF SERVICE: 03/26/2017 RENAL MEDICINE SUBJECTIVE: Mr. Mancera is a 77-year-old white male with known history of chronic renal failure and admitted for CHF. He has now had superimposed acute renal failure from a hemodynamic mediated renal dysfunction. Recently, the diuretics have been decreased by his jewel bearing turner. His breathing is improved. However, the concern by the family is that the patient is more confused. They are requesting to see if he will qualify for rehabilitation. No complaints of chest pain or shortness of breath. PHYSICAL EXAMINATION: VITAL SIGNS: Blood pressure is 145/70, heart rate 64, respiratory rate 16, temperature 98.2, pulse ox 98%. GENERAL: Awake, alert, comfortable, not in distress. SKIN: Adequate turgor. HEENT: Pinkish conjunctivae. Anicteric sclerae. NECK: No neck mass, no carotid bruits, no JVD. CHEST: No deformities. LUNGS: Decreased breath sounds. No wheezing, no crackles. HEART: Normal sinus rhythm. No murmur, no gallops or rubs. ABDOMEN: Globular, soft, nontender, no masses. EXTREMITIES: No edema, no deformities. Status post bilateral leg amputation. MEDICATIONS: Medications of 03/26/2017 was reviewed. LABORATORY DATA: Laboratories of 03/26/2017; white count 5.7, hemoglobin 10.2. Sodium 129, potassium 3.7, chloride 94, carbon dioxide 25, BUN 47, creatinine 2.86, glucose 189, and calcium 8.9. ASSESSMENT AND PLAN: 1. Acute kidney injury/chronic renal failure - stabilizing renal function. Creatinine is noted at 2.86 and yesterday it was 2.91. This is a reflection of the decreased dose of his diuretics. Continue current management. There is no indication for any dialytic intervention. 2. Congestive heart failure, clinically improving, on low dose diuretics. We will refer for possible rehabilitation placement. 3. Agree with current management. Recheck basic metabolic panel and CBC in a.m. MTDD
[2017-03-26] MEDS ORDERED: Milk Of Magnesia 30 ML UDCUP PO PRN (09:27)
[2017-03-26] MEDS: Enoxaparin Sodium 30 MG/0.3 ML SYRINGE SC SCH (10:49)
[2017-03-26] MEDS: Famotidine/PF 20 mg/2ml Vial SLOW IVP SCH (10:49)
[2017-03-26] MEDS: Docusate 100 MG CAP PO SCH (10:52)
[2017-03-26] MEDS: Insulin Regular 300 UNITS/3 ML VIAL SC PRN ×2 (10:52→11:56)
[2017-03-26] MEDS: Alogliptin Benzoate 6.25 MG TABLET PO SCH (10:52)
[2017-03-26] MEDS: Furosemide 40 MG TAB PO SCH (10:52)
[2017-03-26] MEDS: Aspirin 81 mg Enteric Coated Tablet PO SCH (10:52)
[2017-03-26] MEDS: Carvedilol 25 MG TAB PO SCH ×2 (10:52→20:32)
--- NOTE | 2017-03-26 11:01 | PDOC.PN ---
- Subjective Encounter Start Date: 03/26/17 Encounter Start Time: 09:25 Pt seen and exmained on rounds, daughter in the room, i did update her to current condition. Pt feling constipated, says he takes MoM at home and wants to try. Pt and daughter informed me that pt wants to go to rehab after discharge and that it works for the [facility] she she will be out of town for a week. PT consult ordered, we will see if he qualifies as he is wheelchair bound. No f/C, no N/V/D/C, no CP, no SOB. Dr Sainz saw earlier, Cr slightly improved. no change in plans 10 point ROS performed and neg for all systems except as stated above - Objective Resuscitation Status: Full MAR Reviewed: Yes Vital Signs & Weight: Vital Signs (12 hours) Temp Pulse Resp BP Pulse Ox 03/26/17 04:00 98.2 F 64 16 145/70 H 98 Weight Weight 208 lb 6 oz I&O: 03/25/17 03/26/17 03/27/17 06:59 06:59 06:59 Intake Total 250 1130 Output Total 1350 400 Balance -1100 730 Result Diagrams: 03/26/17 05:30 03/26/17 05:30 Additional Labs: Accuchecks 03/26/17 03/25/17 03/25/17 05:52 20:57 16:45 POC Glucose 212 H 219 H 249 H 03/25/17 11:40 POC Glucose 239 H Radiology Reviewed by me: Yes EKG Reviewed by me: Yes Phys Exam - Physical Examination Constitutional: NAD HEENT: PERRLA, moist MMs, sclera anicteric, oral pharynx no lesions Neck: no nodes, no JVD, supple, full ROM Respiratory: no wheezing, no rales, no rhonchi, clear to auscultation bilateral poor air movement, symmetrical chest excursion Cardiovascular: RRR, no significant murmur, no rub Gastrointestinal: soft, non-tender, 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, positive bowel sounds Left AKA and Right BKA stumps without edema Neurological: non-focal, normal sensation, moves all 4 limbs Lymphatic: no nodes Psychiatric: normal affect, A&O x 3 Deviation from normal: trouble recalling medicine names today Skin: no rash, normal turgor Dx/Plan (1) Acute on chronic combined systolic and diastolic heart failure Code(s): I50.43 - ACUTE ON CHRONIC COMBINED SYSTOLIC AND DIASTOLIC HRT FAIL Status: Acute Comment: ef 40-45%. responding well to diuresis, followup on I /O. changed to po lasix, aldactone and lisinopril on hold. probably at [facility] volume-uribe (2) CKD (chronic kidney disease) stage 3, GFR 30-59 ml/min Code(s): N18.3 - CHRONIC KIDNEY DISEASE, STAGE 3 (MODERATE) Status: Chronic Comment: followed by Dr Sainz. Baseline Cr around 2. Cr slightly improved from 2.91 to 8.26. (3) Hyponatremia Code(s): E87.1 - HYPO-OSMOLALITY AND HYPONATREMIA Status: Resolved (4) JUAN (acute kidney injury) Code(s): N17.9 - ACUTE KIDNEY FAILURE, UNSPECIFIED Status: Acute Comment: acute kidney injury on CKD 3. caseline Cr around 1.6-2. At 2.92 at present. combination of cardiorenal and diuresis. 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
[2017-03-26] MEDS: Famotidine 20 MG TAB PO SCH (20:32)
[2017-03-27 05:36] LABS: #Eosinphils 0.1 thou/uL (0.0-0.7); #Lymphocytes 1.5 thou/uL (1.20-3.40); #Neutrophils 8.6 thou/uL (1.40-6.50); %Basophils 0.3 % (0.0-1.0); %Eosinophils 0.8 % (0.0-10.0); %Lymphocytes 13.6 % (21.0-51.0); Hematocrit 30.2 % (42.0-52.0); Red Blood Cell (RBC) Count 3.18 mill/uL (4.70-6.10); White Blood Cell (WBC) Count 11.2 thou/uL (4.8-10.8)
[2017-03-27 05:58] LABS: Anion Gap 14 mmol/L (10-20); BUN (Urea Nitrogen) 42 mg/dL (8.4-25.7); Calc. Creatinine Clearance 28 mL/min (70-130); Carbon Dioxide 26 mmol/L (23-31); Chloride 92 mmol/L (98-107); Estimated GFR-MDRD 22
[2017-03-27] MEDS ORDERED: Carvedilol 25 MG TAB PO SCH (08:00)
--- NOTE | 2017-03-27 09:04 | PRG ---
DATE OF SERVICE: 03/27/2017 SUBJECTIVE: Mr. Mancera is a 77-year-old white male who was seen for his acute kidney injury on to p of his chronic renal failure. He was initially diuresed. He came in with CHF. Diuretics have be en adjusted by his senior internal auditor. Renal function is stabilizing. Last night the patient was noted t o be more confused. A Rehab consultation has been done with this patient. This morning no acute p roblems. Denies any chest pain or shortness of breath. PHYSICAL EXAMINATION: VITAL SIGNS: Blood pressure is 142/68, heart rate 69, respiratory rate 20, temperature 98.8, pulse ox 98%. GENERAL: Noted to be awake, alert, comfortable, not in distress. SKIN: Adequate turgor. HEENT: He has pinkish conjunctivae, anicteric sclerae. NECK: No neck mass, no carotid bruits, no JVD. CHEST: No deformities. LUNGS: Clear breath sounds. HEART: Normal sinus rhythm. No murmur, no gallops, no rubs. ABDOMEN: Globular, soft, nontender, no masses. EXTREMITIES: No edema, no deformities. MEDICATIONS: 03/27/2017 - Reviewed. LABORATORY: 03/27/2017 - White count 11.2, hemoglobin 10.5, sodium 128, potassium 3.9, chloride 92, carbon dioxide 26, BUN 42, creatinine 2.75, glucose 259, calcium 9.0. ASSESSMENT AND PLAN: 1. Acute kidney injury on top of his chronic renal failure - superimposed prerenal azotemia, improv ing with adjustment of his diuretics. There is no indication for any dialytic intervention. I agre e with current management. Continue low dose diuretics. 2. Congestive heart failure, clinically improving. Continue Lasix 40 mg tab once a day. 3. Confusion - supportive care. Awaiting rehab evaluation for this patient. Recheck basic met and CBC in a.m.
[2017-03-27] MEDS: Carvedilol 25 MG TAB PO SCH (10:14)
[2017-03-27] MEDS: Famotidine 20 MG TAB PO SCH (10:15)
[2017-03-27] MEDS: Furosemide 40 MG TAB PO SCH (10:15)
[2017-03-27] MEDS: Alogliptin Benzoate 6.25 MG TABLET PO SCH (10:15)
[2017-03-27] MEDS: Aspirin 81 mg Enteric Coated Tablet PO SCH (10:15)
[2017-03-27] MEDS: Docusate 100 MG CAP PO SCH (10:16)
[2017-03-27] MEDS: Enoxaparin Sodium 30 MG/0.3 ML SYRINGE SC SCH (10:18)
[2017-03-27] MEDS: Insulin Regular 300 UNITS/3 ML VIAL SC PRN ×2 (10:22→13:50)
[2017-03-27 12:40] VITALS: TEMP 98.8
--- NOTE | 2017-03-27 12:55 | DIS ---
DATE OF ADMISSION: 03/23/2017 DATE OF DISCHARGE: 03/27/2017 DISCHARGE DIAGNOSES: 1. Acute on chronic combined systolic and diastolic congestive heart failure. 2. Chronic kidney disease, stage 3. 3. Acute kidney injury on chronic kidney disease. 4. Hyponatremia. 5. Diabetes mellitus type 2 without complications, without long-term use of insulin. 6. Hypertension. 7. History of coronary artery disease. 8. Chronic obstructive pulmonary disease without acute exacerbation. 9. Hyperlipidemia. 10. Peripheral vascular disease. CONSULTATIONS: 1. Cardiology, Dr. Bull Mccray. 2. Nephrology, Dr. Johnny Sainz. PROCEDURES: Echocardiogram on 03/24/2017 that showed EF of 40% to 45%, mildly increased left ventri cular size, moderately depressed left ventricular function, hypokinesis of the inferior lateral wall and the posterior wall of the left ventricle, moderate mitral regurgitation, sclerotic aortic valve and mild tricuspid regurgitation. HISTORY AND PHYSICAL: Mr. Mancera is a 77-year-old white male who was brought to the emergency dep artment with confusion. Per the family, he was very short of breath and was noticed initially to hernandes ve respiratory distress and placed on BiPAP. Mental status improved, further workup revealed conges tive heart failure and the patient was subsequently admitted to the hospitalist service. HOSPITAL COURSE: The patient was seen and examined by Dr. Tavarse in the emergency department and sub sequently admitted. The patient was transferred to immediate care, started on IV Lasix and continue d on BiPAP. Cardiology and Pulmonary were initially consulted and the patient was placed on sliding scale insulin. Serial cardiac biomarkers were ordered. Echocardiogram was ordered and the patient was placed on Lovenox for DVT prophylaxis. He remained stable through the course of the day. On 03/24, I took over the case, patient had been weaned off the BiPAP and was satting 95% on room air . Blood pressure had normalized and heart rate remained normal. The patient was doing much better. Creatinine was slightly elevated above baseline at 2.58, with normal being somewhere between 1.6 a nd 2.0. Orders written to transfer the patient to the floor and he was seen later that day by Dr. Bull bernal who recommended holding his spironolactone, lisinopril, Lasix was converted to p.o. The patie nt was changed to hydralazine for better blood pressure control and echo was ordered with the above findings. He did call Dr. Sainz in as the creatinine had elevated. On 03/25, the patient was seen chute builder by Dr. Sainz who agreed with the changes. I recommended watch him overnight and repeating studies. Patient's breathing remained stable. Sugars remain mini noé elevated, creatinine continued to rise from 2.58 to 2.91. Overnight 03/25/2017 to 03/26/2017, the patient had no acute events and was feeling better. Jason r with his bedside and requested a rehabilitation placement for the patient on discharge. PT, OT wa s consulted and evaluated the patient. His creatinine was slightly improved. On evaluation, PT fou nd he had no benefit from rehabilitation at this time as he was extremely mobile and very independen t. So plans were made to discharge him the following morning with home health care. Overnight 03/26/2017 to 03/27/2017, the patient had a sundowning episode. He was confused and rolls his wheelchair into several other patients' rooms. Family was called and stayed with him overnight and remained stable. Today he remembers none of those episodes, he is alert and oriented to 3 except for year, and is [facility] stable for discharge. PHYSICAL EXAMINATION: The patient was seen and examined on the day of discharge. DISCHARGE PLAN: Disposition were discussed with the patient [id number] at the bedside. DISCHARGE MEDICATIONS: 1. Aspirin 81 mg daily. 2. Atorvastatin 80 mg at bedtime. 3. Coreg 25 mg p.o. b.i.d. 4. Docusate 100 mg daily. 5. Lasix 20 mg daily. 6. Amlodipine 5 mg daily. 7. Glipizide 5 mg daily. 8. Hydralazine 50 mg p.o. t.i.d. 9. Metformin 1000 mg p.o. b.i.d., which is currently on hold. 10. Januvia 50 mg daily. FOLLOWUP APPOINTMENTS 1. PCP within a week. 2. Dr. Sainz in 1 to 2 weeks per his clinic. Basic metabolic profile, CBC will be drawn by home care and sent to both primary care physician and Dr. Sainz. 3. Cardiology per their clinic schedule. DISCHARGE CONDITION: Good. DISPOSITION: The patient will be discharged to home via private vehicle with home health care for P T, OT, and medical management.
[2017-03-27 14:47] VITALS: BP 144/67
== END 2017-03-27 16:40 | disposition home health service (06) | DRG 291 ==
LOC: ERS 10:47 → IMCU/EMU 16:32 → 2NO 03-24 14:36
PROVIDERS: ADMIT Internal Medicine; ATTEND Internal Medicine
PROC: 5A09357 Assistance with Respiratory Ventilation, Less than 24 Consecutive Hours, Continuous Positive Airway Pressure (ICD-10-PCS; principal; 2017-03-23)
DX: I13.0 Hypertensive heart and chronic kidney disease with heart failure and stage 1 through stage 4 chronic kidney disease, or unspecified chronic kidney disease (principal); J96.01 Acute respiratory failure with hypoxia; N17.9 Acute kidney failure, unspecified; I50.43 Acute on chronic combined systolic (congestive) and diastolic (congestive) heart failure; E87.1 Hypo-osmolality and hyponatremia; E11.65 Type 2 diabetes mellitus with hyperglycemia; N18.3 Chronic kidney disease, stage 3 (moderate); D63.8 Anemia in other chronic diseases classified elsewhere; I16.0 Hypertensive urgency; I73.9 Peripheral vascular disease, unspecified; I25.5 Ischemic cardiomyopathy; E78.00 Pure hypercholesterolemia, unspecified; E66.01 Morbid (severe) obesity due to excess calories; Z68.38 Body mass index [BMI] 38.0-38.9, adult; Z95.1 Presence of aortocoronary bypass graft; Z89.512 Acquired absence of left leg below knee; Z89.511 Acquired absence of right leg below knee; Z87.11 Personal history of peptic ulcer disease; Z87.891 Personal history of nicotine dependence
CPT/HCPCS: 36415; 36416; 70450; 71010; 80048; 80053; 80061; 81003; 81015; 82550; 82553; 82805; 83605; 83690; 83880; 84484; 85025; 85379; 87040; 93005; 93306; 94640; 94660; 94760; 96372; 96374; A4216; G8978-GP-CI; G8979-GP-CI; G8980-GP-CI; G8987-GO-CI; G8988-GO-CI; G8989-GO-CI; J1650; J1940; J7620; S0028

== ENCOUNTER 2017-05-04 22:52 | Inpatient (IN) | payer MEDICARE ==
[2017-05-04 23:17] LABS: #Eosinphils 0.4 thou/uL (0.0-0.7); #Lymphocytes 1.5 thou/uL (1.20-3.40); #Monocytes 0.9 thou/uL (0.11-0.59); #Neutrophils 6.3 thou/uL (1.40-6.50); %Basophils 0.4 % (0.0-1.0); %Eosinophils 4.5 % (0.0-10.0); %Lymphocytes 16.1 % (21.0-51.0); %Monocytes 10.2 % (0.0-10.0); Hematocrit 26.3 % (42.0-52.0); Mean Platelet Volume 6.9 fL (7.4-10.4); White Blood Cell (WBC) Count 9.2 thou/uL (4.8-10.8)
--- NOTE | 2017-05-04 23:17 | RAD ---
CHEST 1 VIEW: Date: 05/04/17 HISTORY: Chest pain. COMPARISON: Chest 1 view dated 03/23/17. FINDINGS: There are multiple displaced median sternotomy wires. Heart size is enlarged. Mild pulmonary venous c ongestion. No pneumothorax. IMPRESSION: No significant change in the radiographic appearance of the chest. POS: [facility]
[2017-05-04 23:40] LABS: ALT (SGPT) 24 U/L (8-55); AST (SGOT) 16 U/L (5-34); Alkaline Phosphatase 43 U/L (40-150); Anion Gap 13 mmol/L (10-20); BUN (Urea Nitrogen) 36 mg/dL (8.4-25.7); Bilirubin, Total 0.3 mg/dL (0.2-1.2); Calc. Creatinine Clearance 0 mL/min (70-130); Calcium 9.1 mg/dL (7.8-10.44); Carbon Dioxide 22 mmol/L (23-31); Chloride 96 mmol/L (98-107); Estimated GFR-MDRD 24; Globulin 2.8 g/dL (2.4-3.5); Lipase 37 U/L (8-78); Protein, Total 6.4 g/dL (5.8-8.1)
[2017-05-04 23:44] LABS: Troponin I 0.012 ng/mL (< 0.028)
[2017-05-04 23:47] LABS: Bilirubin Negative (Negative); Blood, Urine Negative (Negative); Glucose, Urine (Dipstick) Negative (Negative); Ketone, Urine Negative (Negative); Nitrite Negative (Negative); Protein, Urine (Dipstick) 300 mg/dL (Neg-Trace); Urobilinogen 0.2 mg/dL (0.2-1.0)
[2017-05-04 23:49] LABS: Bacteria/HPF 1+ HPF (None Seen); Hyaline Casts/LPF 0-3 HYALINE CAST LPF (0-3 Hyaline); RBC/HPF 0-3 HPF (0-3); Squamous Epithelial None Seen HPF (0-3); WBC/HPF 21-50 HPF (0-3)
[2017-05-05] MEDS ORDERED: Enoxaparin Sodium 100 MG/ML SYRINGE ONE (00:32)
[2017-05-05] MEDS ORDERED: Furosemide 40 MG/4 ML VIAL ONE (00:32)
--- NOTE | 2017-05-05 01:42 | PDOC.EVN ---
Event Note - Event Note Event Note: [id number] H&P dictated 1. Mild CHF exacerbation 2. HTN 3. DM type 2 4. Chest pain plan: see orders
[2017-05-05] MEDS ORDERED: Dextrose 50% Abboject 50 ML SYRINGE SLOW IVP PRN (01:44)
[2017-05-05] MEDS ORDERED: Dextrose 5% in Water 1,000 ML IV PRN (01:44)
[2017-05-05] MEDS ORDERED: HumaLOG 300 UNITS/3 ML VIAL SC PRN (01:44)
[2017-05-05 02:34] LABS: Troponin I 0.012 ng/mL (< 0.028)
[2017-05-05] MEDS ORDERED: Nitroglycerin 2% Ointment 1 INCH/1 GM Packet ONE (05:37)
[2017-05-05 05:47] LABS: Troponin I 0.023 ng/mL (< 0.028)
[2017-05-05] MEDS ORDERED: Furosemide 40 MG/4 ML VIAL SLOW IVP SCH (06:00)
--- NOTE | 2017-05-05 09:36 | HP ---
DATE OF ADMISSION: 05/05/2017 CHIEF COMPLAINT: Chest pain, dyspnea. HISTORY OF PRESENT ILLNESS: Patient is a 77-year-old male with past medical history of hypertension, peripheral vascular disease, diabetes mellitus type 2, CKD stage 3-4. He came to the ER now complaining of CHF, coronary artery disease, now complaining of chest pain and dyspnea. Patient is having dyspnea for the past 2 days, chest pain even with exertion. Dyspnea complaints on lying flat also. Complains of some chest pain. Chest pain is substernal pressure kind of pain. No aggravating factors, no alleviating factors, intermittent, mild. Denies any nausea, denies any vomiting. Chest pain persisted, so came to the ER. PAST MEDICAL HISTORY: As per HPI. PAST SURGICAL HISTORY: Bilateral BKA, CABG. SOCIAL HISTORY: Denies alcohol, denies any drugs. He used to smoke. FAMILY HISTORY: Positive for heart problems. MEDICATIONS: Reviewed. ALLERGIES: AMBIEN. REVIEW OF SYSTEMS: Constitutional: Denies any fever, denies any chills. Eyes : Denies vision problems. Ears: Denies hearing loss. Neck: Denies any neck pain. Cardiovascular System: Positive for chest pain. Respiratory System: Positive for dyspnea. Cranial Nerve System: Denies syncope, denies lightheadedness. Psychiatric: Denies anxiety. Musculoskeletal: Positive for bilateral BKA. Integumentary: Denies any rash. All other review of systems are reviewed and are negative. PHYSICAL EXAMINATION: CONSTITUTIONAL/VITAL SIGNS: At the time of H and P performed, blood pressure is 164/82, pulse ox 98% GENERAL: The patient appears comfortable. HEENT: Pupils are equal, round, and reactive. Anterior nares patent. Nose normal. Ears normal. Teeth intact. Tongue is moist. NECK: Supple. No JVD. CARDIOVASCULAR SYSTEM: S1, S2 present. Regular rate and rhythm. No murmurs, no rubs, no gallops. RESPIRATORY SYSTEM: No wheezing, no rhonchi. Breath sounds bilaterally. GASTROINTESTINAL: Abdomen is soft, nontender, no guarding, no organomegaly, no masses felt. MUSCULOSKELETAL: Positive for bilateral BKA. INTEGUMENTARY: denies skin changes. PSYCHIATRIC: Mood is appropriate at this time. CRANIAL NERVE SYSTEM: Cranial nerves intact. Follows commands. Strength intact. Sensory intact. LABORATORY DATA: At the time of H and P performed, sodium 127, potassium 4.4, chloride 96, CO2 of 22, BUN of 36, creatinine 2.5. White count 9.2, hemoglobin 9 , platelet count is 229. D-dimer 1.50. BNP 513. Troponin 0.012. ASSESSMENT AND PLAN: The patient is a 77-year-old male. 1. Dyspnea, mild congestive heart failure exacerbation, place the patient on IV Lasix. Plan to monitor creatinine closely. 2. Hyponatremia, mild. Monitor. Plan to check serial BMP. If sodium level doesn't improve then we will do further urine studies. 3. Chest pain appears atypical. Plan to check cardiac enzymes. Plan to consult Cardiology to evaluate the patient and plan to place the patient on nitroglycerin. 4. Hypertension. Monitor blood pressure. Continue blood pressure medications. 5. History of diabetes type 2. Monitor blood sugars. We will do insulin sliding scale. The case was discussed in detail with the patient. The patient is FULL CODE at this time. [facility] CENTERBritney
[2017-05-05] MEDS ORDERED: Aspirin 325 MG TAB ONE (10:31)
--- NOTE | 2017-05-05 12:04 | NM ---
VENTILATION/PERFUSION STUDY: 05/05/2017 HISTORY: The patient was admitted with chest pain, shortness of breath, and back pain on 05/04/2017. RADIOPHARMACEUTICALS: Xenon-133 gas, inhaled, 10.4 millicuries. Technetium 99m labeled MAA, IV, 5.5 millicuries. FINDINGS: On the ventilation portion of the study, there is a mild area of diminished uptake of radiotracer see n within the left mid lung zone. This is not in a segmental or subsegmental distribution. There is generalized diminished uptake of radiotracer within the left lung, compared to the right. Normal upt jackeline and distribution of radiotracer is seen within the right lung on the ventilation portion of the s tudy. The perfusion images demonstrate a similar distribution of uptake of radiotracer compared to the vent ilation study with overall mildly diminished uptake within the left lung and slightly greater area of diminished uptake within the left mid lung zone, which corresponds to a ventilation abnormality. Th ere does appear to be more normal uptake within the right lung. There is no peripheral wedge shaped defect to suggest a segmental or subsegmental perfusion defect, related to pulmonary embolus. A recent chest x-ray on 05/04/2017 demonstrates no parenchymal opacities within the lungs bilaterally . IMPRESSION: 1. Diminished uptake of radiotracer in the left lung on both the ventilation and perfusion portions of the study with a similar appearance on both the ventilation and perfusion studies. There is a gre ater degree of diminished uptake within the left mid lung zone. The exact etiology for this finding is uncertain. 2. Low probability for pulmonary embolus. POS: [facility]
--- NOTE | 2017-05-05 13:15 | PDOC.EVN ---
Event Note - Event Note Event Note: Patient doing a little better. SOB improved. No chest pain currently. VQ scan complete and negative for Pulmonary Embolism. Awaiting cardiology consultation.
[2017-05-05] MEDS: Carvedilol 25 MG TAB PO SCH ×2 (13:52→20:16)
[2017-05-05] MEDS: Aspirin 325 MG TAB PO SCH (13:52)
[2017-05-05] MEDS: Nitroglycerin 2% Ointment 1 INCH/1 GM Packet TOP SCH ×3 (13:52→21:14)
[2017-05-05] MEDS: Amlodipine 5 MG TAB PO SCH (13:52)
[2017-05-05] MEDS: Aspirin 81 mg Enteric Coated Tablet PO SCH (13:52)
[2017-05-05] MEDS: hydrALAZINE 25 MG TAB PO SCH ×3 (13:53→20:16)
[2017-05-05] MEDS: Enoxaparin Sodium 30 MG/0.3 ML SYRINGE SC SCH (13:53)
[2017-05-05] MEDS: Furosemide 40 MG/4 ML VIAL SLOW IVP SCH (14:58)
--- NOTE | 2017-05-05 17:17 | CON ---
DATE OF CONSULTATION: 05/05/2017 HISTORY OF PRESENT ILLNESS: Mr. Mancera is a 77-year-old white male with known history of chronic r enal failure admitted for chest pain/shortness of breath. He was also found to be in CHF, but patien t started on IV diuretics. We are now being consulted for his chronic renal failure. I reviewed his renal function, they relatively near baseline. REVIEW OF SYSTEMS: Positive for chest pain. Positive for mild shortness of breath. No nausea, no v omiting, no diarrhea, no syncopal episode, no productive cough, no fever or chills. No gross hematur ia. No dysuria or no urinary frequency, no abdominal pain, no sore throat, no headache, no hematoche karen, no hemoptysis, occasional joint pains. MEDICATIONS: Aspirin 81 mg tab once a day, Norvasc 5 mg daily, Lipitor 80 mg at bedtime, Coreg 25 mg p.o. b.i.d., Lovenox 30 mg subcutaneous day, furosemide 40 mg IV q.12, hydralazine 50 mg p.o. t.i.d. , Humalog sliding scale, Nitro-Bid 2% q.12. PAST MEDICAL HISTORY: Chronic renal failure secondary to diabetic nephropathy; type 2 diabetes melli tus; history of SIADH; hyperlipidemia; peripheral vascular disease; coronary artery disease; peripher al neuropathy; COPD; diverticulosis, status post gastric ulcer. PAST SURGICAL HISTORY: Status post right BKA, status post left AKA, status post cardiac catheterizat ion, status post CABG, status post left knee surgery for fracture, status post upper and lower GI end oscopy. SOCIAL HISTORY: The patient lives in [place]. He is . He has 4 children-one step children. Smoked for 50 years, two packs a day. Alcohol none. Education, high school. Retired [employer], sta tus post blood transfusion. No drug abuse. Sedentary lifestyle. ALLERGIES: None. TRAUMA: Status post left knee fracture. IMMUNIZATIONS: Up to date. HOSPITALIZATIONS: Please see past medical history. FAMILY HISTORY: Negative for ESRD. PHYSICAL EXAMINATION: VITAL SIGNS: Blood pressure is noted at 159/70, heart rate 70, respiratory rate 18, temperature 97.7 , pulse ox 93%. GENERAL: Awake, sitting comfortable, not in distress. SKIN: Adequate turgor. HEENT: Pinkish conjunctivae, anicteric sclerae. NECK: No neck mass, no carotid bruits, no JVD. CHEST: No deformities. LUNGS: Decreased breath sounds. No wheezing. HEART: Normal sinus rhythm. No murmur, no gallops or rubs. ABDOMEN: Globular, soft, nontender, no masses. EXTREMITIES: Status post right BKA. Status post left AKA. NEUROLOGIC: Moving all extremities. No tremors, asterixis, ataxia. LABORATORY DATA: On 05/04/2017 white count 9.2, hemoglobin 9. Sodium 127, potassium 4.4, chloride 9 6, carbon dioxide 22, BUN 36, creatinine 2.55, glucose 217, calcium 9.1, albumin 3.6. BNP 530. On 05/04/2017, chest x-ray shows no significant radiographic abnormality except for mild CHF. ASSESSMENT AND PLAN: 1. Chronic renal failure secondary to diabetic/hypertensive nephropathy, stable renal function. Con tinue current management. Continue intravenous Lasix 40 mg IV q.12. No indication for any dialytic intervention. 2. Shortness of breath, multifactorial etiology. Continue diuretic regimen. If needed, we can star t this patient on DuoNeb q.6 hours. 3. We check base met and CBC in the a.m.
--- NOTE | 2017-05-05 18:29 | CON ---
DATE OF CONSULTATION: 05/05/2017 DATE OF ADMISSION: 05/05/2017 INDICATION FOR CONSULTATION: A 77-year-old patient with chest pain, shortness of breath, coronary ar cooper disease. HISTORY OF PRESENT ILLNESS: This is a very unfortunate 77-year-old gentleman has a long history of c oronary artery disease. He underwent bypass surgery in the past. He has last cardiac catheterizatio n that I can determine was done in 2013, which showed left main to be 60% occluded. The left anterio r descending artery was 100% occluded in the mid-section. The left circumflex distally with 100% occ luded and proximally 70% occluded. The right coronary was 100% occluded in the midsection. He has s aphenous vein grafts, but had with a FELDMAN to the LAD, which was patent. He has saphenous vein graft to a diagonal of the RCA, both were patent. He also had mild left ventricular systolic dysfunction a t the time of the cardiac catheterization, ejection fraction of 40%-45%. At this time, at home he li ves by himself, his daughter helps to take care of him, but he started over the last month or so noti toby that he has been having some hallucinations. His daughter came over to see him on Friday or and discussing things and noticed that he had been having some shortness of breath. He also com plained of chest pain and he said he has some discomfort in the left arm and then complained of some back pain. After he started telling her that he was having hallucinations where he was seeing people , even though he knew they were not there, he insisted that they were present, he would speak to them at times and they were people that he knew, but he said obviously they were not there and so eventua lly she decided to bring the patient to the hospital. He did not take any medications at home for hi s chest discomfort or his arm discomfort. PAST MEDICAL HISTORY: Significant for the coronary artery disease as noted above, hypertension, hype rcholesterolemia, diabetes which is insulin-dependent. He has had chronic kidney disease, peripheral vascular disease. He has bilateral BKAs. SOCIAL HISTORY: He is a . He smoked in the past, but stopped many years ago back in 1996. FAMILY HISTORY: Noncontributory. ALLERGIES: He is allergic to AMBIEN. HOME MEDICATIONS: Include metformin, atorvastatin, Colace, Lasix, Coreg, Januvia, Glucotrol, Norvasc , hydralazine, and aspirin. At hospital at this time, he has been given DuoNeb, Norvasc, enteric-coa jessica aspirin, Lipitor, Coreg, Lovenox, Lasix, hydralazine. He has also on sliding-scale insulin as we ll as needed nitroglycerin half-a-inch q.8 hours. REVIEW OF SYSTEMS: He is edentulous. He has decreased vision recently. He complained of constipati on. He has gained some weight, but only like 5 or 10 pounds. He has some shortness of breath, other uribe no significant changes that was noted in the history of present illness. PHYSICAL EXAMINATION: GENERAL: Reveals an elderly gentleman. VITAL SIGNS: Blood pressure 159/70, heart rate is 70, respiratory rate 20. He is afebrile. HEENT: Shows head to be normocephalic and atraumatic. Carotid pulses are present. I cannot hear an y bruits. CHEST: Clear to auscultation without rales, rhonchi, or wheezing. CARDIOVASCULAR EXAM: Reveals a regular rate and rhythm with occasional ectopy. He has normal S1, S2 . I cannot hear any S3 or S4. There were no significant murmurs, heaves, thrills, bruits, or rubs n oted. ABDOMEN: Shows obesity, somewhat tympanic. Positive bowel sounds are present. I cannot palpate any masses. EXTREMITIES: Femoral pulses are difficult to palpate. He has bilateral AKAs. The left side somewha t shorter than the right. He has prosthesis on the right side. NEUROLOGIC: The patient appears to be relatively intact. He appears to be intact and he is aware th at the hallucinations are not real. LABORATORY AND X-RAY FINDINGS: EKG shows a normal sinus rhythm with nonspecific changes. No acute c hanges were noted. Cardiac enzymes are negative. Creatinine is 2.55 with a BUN of 36, potassium is 4.4, sodium is 127. Hematocrit was 26, hemoglobin was 9, and WBC of 9.2. Urinalysis shows evidence of a urinary tract infection. IMPRESSION: 1. Elderly gentleman with known coronary artery disease, who presents with chest pain and shortness of breath. I believe the stress test was ordered earlier today and he refused to undergo stress test ing. We will need to decide whether or not he would be a candidate to undergo cardiac catheterizatio n or not, but enzymes are negative and EKG does not show any acute findings. 2. Hyponatremia. We will watch diuretics carefully, but we will fluid restrict the patient. 3. History of chronic kidney disease with a creatinine of 2.55. He has been seen by Dr. Sainz already today. 4. History of diabetes. This will be dealt with primary care service, somewhat elevated blood sugar s at this time. 5. Hypertension, also we may need to adjust his medications, can increase the medications to hopeful ly control the blood pressure somewhat better. 6. Urinary tract infection. He is not on any medications for the urinary tract infection at this ti me. We may need to consider that especially in an elderly patient who is probably having hallucinati ons, this may be due to ongoing infection. 7. Hallucinations as one of his problems. He may need to have a psychiatric evaluation. Further ca re of the patient will be monitored and dictated by Dr. Mccray, when he sees the patient tomorrow. At this time, he appears to be relatively stable and is chest pain free as well as does not appear t o have any shortness of breath or dyspnea at this time.
[2017-05-05] MEDS: Atorvastatin Calcium 40 MG TAB PO SCH (20:15)
[2017-05-06] MEDS: Furosemide 40 MG/4 ML VIAL SLOW IVP SCH (05:34)
[2017-05-06] MEDS: Nitroglycerin 2% Ointment 1 INCH/1 GM Packet TOP SCH ×3 (05:34→20:28)
[2017-05-06 06:50] LABS: #Eosinphils 0.3 thou/uL (0.0-0.7); #Lymphocytes 1.6 thou/uL (1.20-3.40); #Monocytes 0.9 thou/uL (0.11-0.59); #Neutrophils 5.4 thou/uL (1.40-6.50); %Basophils 0.6 % (0.0-1.0); %Eosinophils 4.2 % (0.0-10.0); %Lymphocytes 19.4 % (21.0-51.0); %Monocytes 10.6 % (0.0-10.0); Hematocrit 26.5 % (42.0-52.0); Red Blood Cell (RBC) Count 2.75 mill/uL (4.70-6.10); White Blood Cell (WBC) Count 8.3 thou/uL (4.8-10.8)
[2017-05-06 07:17] LABS: Anion Gap 14 mmol/L (10-20); BUN (Urea Nitrogen) 39 mg/dL (8.4-25.7); Calc. Creatinine Clearance 28 mL/min (70-130); Calcium 9.5 mg/dL (7.8-10.44); Carbon Dioxide 25 mmol/L (23-31); Chloride 95 mmol/L (98-107); Estimated GFR-MDRD 23
--- NOTE | 2017-05-06 08:22 | PDOC.PN ---
- Subjective Encounter Start Date: 05/06/17 Encounter Start Time: 08:30 Subjective: No more chest pain. No SOB. Refused stress test yesterday. - Objective MAR Reviewed: Yes Vital Signs & Weight: Vital Signs (12 hours) Temp Pulse Resp BP Pulse Ox 05/06/17 07:34 63 16 93 L 05/06/17 05:29 97 F L 67 18 141/65 H 94 L 05/06/17 00:43 16 I&O: 05/05/17 05/06/17 05/07/17 06:59 06:59 06:59 Intake Total 575 Output Total 920 Balance -345 Result Diagrams: 05/06/17 06:41 05/06/17 06:41 Additional Labs: Accuchecks 05/06/17 05/05/17 05/05/17 04:55 20:26 16:43 POC Glucose 124 H 204 H 185 H 05/05/17 11:31 POC Glucose 152 H Phys Exam - Physical Examination Constitutional: NAD HEENT: moist MMs Respiratory: no wheezing, no rales, no rhonchi Cardiovascular: RRR Gastrointestinal: soft, positive bowel sounds sp AKA bilaterally Psychiatric: normal affect, A&O x 3 Dx/Plan (1) Chest pain Code(s): R07.9 - CHEST PAIN, UNSPECIFIED Status: Resolved (2) Acute on chronic combined systolic and diastolic heart failure Code(s): I50.43 - ACUTE ON CHRONIC COMBINED SYSTOLIC AND DIASTOLIC HRT FAIL Status: Acute Comment: ef 40-45%, diuresed well and creatinine starting to bump so will switch back to home oral lasix dose (3) CAD (coronary artery disease) Code(s): I25.10 - ATHSCL HEART DISEASE OF [place] CORONARY ARTERY W/O ANG PCTRS Status: Chronic (4) Diabetes Code(s): E11.9 - TYPE 2 DIABETES MELLITUS WITHOUT COMPLICATIONS Status: Chronic Qualifiers: Diabetes mellitus type: type 2 Diabetes mellitus complication status: without complication Diabetes mellitus certified alcohol drug counselor insulin use: without long-term use Qualified Code(s): E11.9 - Type 2 diabetes mellitus without complications (5) HLD (hyperlipidemia) Code(s): E78.5 - HYPERLIPIDEMIA, UNSPECIFIED Status: Chronic (6) HTN (hypertension) Code(s): I10 - ESSENTIAL (PRIMARY) HYPERTENSION Status: Chronic Qualifiers: Hypertension type: essential hypertension Qualified Code(s): I10 - Essential (primary) hypertension (7) SIADH (syndrome of inappropriate ADH production) Status: Chronic - Plan cont current plan of care, DVT proph w/lovenox Await Dr. Mccray recommendations on cath vs. outpatient f/u. * . - Discharge Day Encounter end time: 08:50
[2017-05-06] MEDS: Aspirin 325 MG TAB PO SCH (09:10)
[2017-05-06] MEDS: Furosemide 20 MG TAB PO SCH (09:11)
[2017-05-06] MEDS: Enoxaparin Sodium 30 MG/0.3 ML SYRINGE SC SCH (09:11)
[2017-05-06] MEDS: Carvedilol 25 MG TAB PO SCH ×3 (09:11→20:26)
[2017-05-06] MEDS: Aspirin 81 mg Enteric Coated Tablet PO SCH ×2 (09:11→12:59)
[2017-05-06] MEDS: hydrALAZINE 25 MG TAB PO SCH ×3 (09:11→20:26)
[2017-05-06] MEDS: Amlodipine 5 MG TAB PO SCH (09:11)
--- NOTE | 2017-05-06 11:13 | PRG ---
DATE OF SERVICE: 05/06/2017 SUBJECTIVE: The patient has no new complaints. Denies any worsening shortness of breath. PHYSICAL EXAMINATION: VITAL SIGNS: Blood pressure 162/70, heart rate 66, respiratory rate 18, temperature 97.2, pulse ox 9 3%. GENERAL: Awake, alert, comfortable, sitting, not in distress. SKIN: Adequate turgor. HEENT: Pinkish conjunctivae, anicteric sclerae. NECK: No neck mass, no carotid bruits, no JVD. CHEST: No deformities. LUNGS: Clear breath sounds. HEART: Normal sinus rhythm. No murmur, no gallops or rubs. ABDOMEN: Globular, soft, nontender, no masses. EXTREMITIES: Status post right BKA. Status post left AKA. MEDICATIONS: 05/06/2017 - Reviewed. LABORATORY: 05/06/2017 - Reviewed. Creatinine was 2.71. ASSESSMENT AND PLAN: 1. Chronic renal failure, slightly higher creatinine at 2.7. This could be a reflection of previous diuretic regimen. Continue current management. Please note he is on low dose diuretic. No indicat ion for any dialytic intervention. 2. Congestive heart failure, clinically improved. Continue DuoNeb.
[2017-05-06] MEDS: Atorvastatin Calcium 40 MG TAB PO SCH (20:26)
[2017-05-07] MEDS: Nitroglycerin 2% Ointment 1 INCH/1 GM Packet TOP SCH ×3 (05:13→21:07)
[2017-05-07] MEDS: Carvedilol 25 MG TAB PO SCH ×2 (09:02→21:07)
[2017-05-07] MEDS: Enoxaparin Sodium 30 MG/0.3 ML SYRINGE SC SCH (09:02)
[2017-05-07] MEDS: Furosemide 20 MG TAB PO SCH (09:02)
[2017-05-07] MEDS: Amlodipine 5 MG TAB PO SCH (09:03)
[2017-05-07] MEDS: hydrALAZINE 25 MG TAB PO SCH ×3 (09:03→21:06)
[2017-05-07] MEDS: glipiZIDE 5 MG TAB PO SCH (09:04)
--- NOTE | 2017-05-07 09:05 | PRG ---
DATE OF SERVICE: 05/07/2017 SUBJECTIVE: Mr. Mancera is a 77-year-old white male seen by the Renal Service for his chronic renal failure. He was admitted for shortness of breath secondary to CHF. He has been placed on low dose furosemide. The patient is feeling better. He denies any chest pain, shortness of breath. The roverto ent is requesting to be placed in a shelter facility. I discussed the case with the nursing staff and they will consult block and case maker for placement. No oth er complaints today, no worsening chest pain or shortness of breath. PHYSICAL EXAMINATION: VITAL SIGNS: Blood pressure 138/56, heart rate 66, respiratory rate 17, temperature 97.5, pulse ox 9 6%. GENERAL: Noted to be awake, sitting comfortable, not in distress. SKIN: Adequate turgor. HEENT: He has pinkish conjunctivae, anicteric sclerae. NECK: No neck mass, no carotid bruits, no JVD. CHEST: No deformities. LUNGS: Clear breath sounds. HEART: Normal sinus rhythm. No murmur, no gallops, no rubs. ABDOMEN: Globular, soft, nontender, no masses. EXTREMITIES: Status post bilateral leg amputation - right BKA and left AKA. MEDICATIONS: 05/07/2017 - Reviewed. LABORATORY: 05/07/2017 - Hemoglobin 9.1, BUN 39, creatinine 2.71, potassium 3.8. Base met of 2016 currently pending. ASSESSMENT AND PLAN: 1. Chronic renal failure - stable. No indication for any dialytic intervention. Continue low dose diuretics. Awaiting repeat basic met this morning. From a renal point of view, the patient can be d ischarged anytime. 2. Social issues. The patient tells me he lives alone. He could not go home by himself. A case haydee recinos consult has been done for possible shelter facility with this patient. 3. Shortness of breath is much improved. Overall, I agree with current management. Recheck basic metabolic panel in a.m. again.
[2017-05-07 09:17] LABS: Anion Gap 15 mmol/L (10-20); BUN (Urea Nitrogen) 38 mg/dL (8.4-25.7); Calc. Creatinine Clearance 26 mL/min (70-130); Calcium 9.6 mg/dL (7.8-10.44); Carbon Dioxide 25 mmol/L (23-31); Chloride 92 mmol/L (98-107); Estimated GFR-MDRD 21
--- NOTE | 2017-05-07 10:24 | PDOC.PN ---
- Subjective Encounter Start Date: 05/07/17 Encounter Start Time: 08:55 states that he is doing well with no major complaints. states that he cannot safely go home as he lives by himself and has no one else to stay with - Objective Vital Signs & Weight: Vital Signs (12 hours) Temp Pulse Resp BP BP BP Pulse Ox 05/07/17 09:03 66 135/56 L 05/07/17 08:44 97.5 F L 66 17 138/56 L 96 05/07/17 08:00 97.3 F L 66 18 98 05/07/17 04:00 97.3 F L 66 18 164/72 H 95 05/07/17 00:45 83 16 97 I&O: 05/06/17 05/07/17 05/08/17 06:59 06:59 06:59 Intake Total 575 1385 Output Total 920 Balance -345 1385 Result Diagrams: 05/06/17 06:41 05/07/17 08:28 Additional Labs: Accuchecks 05/07/17 05/06/17 05/06/17 06:03 20:07 16:41 POC Glucose 173 H 262 H 189 H 05/06/17 05/06/17 11:30 06:06 POC Glucose 154 H 133 H Phys Exam - Physical Examination HEENT: PERRLA, moist MMs Neck: no nodes, no JVD Respiratory: no wheezing, no rales Cardiovascular: RRR, no significant murmur Gastrointestinal: soft, non-tender, 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, positive bowel sounds Musculoskeletal: pulses present Psychiatric: normal affect, A&O x 3 Dx/Plan (1) Acute on chronic combined systolic and diastolic heart failure Code(s): I50.43 - ACUTE ON CHRONIC COMBINED SYSTOLIC AND DIASTOLIC HRT FAIL Status: Acute Comment: ef 40-45%, diuresed well and creatinine starting to bump so will switch back to home oral lasix dose (2) CAD (coronary artery disease) Code(s): I25.10 - ATHSCL HEART DISEASE OF [place] CORONARY ARTERY W/O ANG PCTRS Status: Chronic (3) Diabetes Code(s): E11.9 - TYPE 2 DIABETES MELLITUS WITHOUT COMPLICATIONS Status: Chronic Qualifiers: Diabetes mellitus type: type 2 Diabetes mellitus complication status: without complication Diabetes mellitus buttermaker insulin use: without buttermaker use Qualified Code(s): E11.9 - Type 2 diabetes mellitus without complications (4) HLD (hyperlipidemia) Code(s): E78.5 - HYPERLIPIDEMIA, UNSPECIFIED Status: Chronic (5) HTN (hypertension) Code(s): I10 - ESSENTIAL (PRIMARY) HYPERTENSION Status: Chronic Qualifiers: Hypertension type: essential hypertension Qualified Code(s): I10 - Essential (primary) hypertension (6) SIADH (syndrome of inappropriate ADH production) Status: Chronic (7) Chest pain Code(s): R07.9 - CHEST PAIN, UNSPECIFIED Status: Resolved - Plan cont current plan of care, plan discussed w/ family * . continue current plan. Case manage consult placed by and to help facilitate dc planning to possible assisted living facility. Will follow accordingly
[2017-05-07] MEDS ORDERED: Acetaminophen 325 MG TAB PO PRN (17:13)
[2017-05-07] MEDS: Atorvastatin Calcium 40 MG TAB PO SCH (21:07)
[2017-05-07] MEDS: HumaLOG 300 UNITS/3 ML VIAL SC PRN (21:53)
[2017-05-08] MEDS: Nitroglycerin 2% Ointment 1 INCH/1 GM Packet TOP SCH ×3 (05:10→21:13)
[2017-05-08 05:18] LABS: Anion Gap 16 mmol/L (10-20); BUN (Urea Nitrogen) 41 mg/dL (8.4-25.7); Calc. Creatinine Clearance 28 mL/min (70-130); Calcium 9.5 mg/dL (7.8-10.44); Carbon Dioxide 22 mmol/L (23-31); Chloride 94 mmol/L (98-107); Estimated GFR-MDRD 23
[2017-05-08] MEDS: Enoxaparin Sodium 30 MG/0.3 ML SYRINGE SC SCH (07:58)
[2017-05-08] MEDS: Amlodipine 5 MG TAB PO SCH (07:59)
[2017-05-08] MEDS: Carvedilol 25 MG TAB PO SCH ×2 (07:59→21:11)
[2017-05-08] MEDS: hydrALAZINE 25 MG TAB PO SCH ×3 (07:59→21:11)
[2017-05-08] MEDS: glipiZIDE 5 MG TAB PO SCH (07:59)
[2017-05-08] MEDS: Furosemide 20 MG TAB PO SCH (07:59)
[2017-05-08] MEDS ORDERED: Chloraseptic Spray 180 ml Bottle PO PRN (09:13)
[2017-05-08] MEDS ORDERED: Sodium Chloride 0.65% Nasal 44 ML BOT EA NARE PRN (09:13)
[2017-05-08] MEDS ORDERED: Ondansetron ODT 4 MG TAB PO PRN (09:13)
[2017-05-08] MEDS ORDERED: Ondansetron HCl/PF 4 MG/2 ML Vial IVP PRN (09:13)
[2017-05-08] MEDS ORDERED: Diabetic Tussin 200 MG/10 ML UDCUP PO PRN (09:13)
[2017-05-08] MEDS ORDERED: Eucerin (Mineral Oil/Petrolatum,White) 30 gm Jar TOP PRN (09:13)
[2017-05-08] MEDS ORDERED: Milk Of Magnesia 30 ML UDCUP PO PRN (09:13)
[2017-05-08] MEDS ORDERED: Loperamide HCl 2 MG CAP PO PRN (09:13)
[2017-05-08] MEDS ORDERED: Artificial Tear Sol 15 ML BOT EA EYE PRN (09:13)
[2017-05-08] MEDS ORDERED: Loratadine 10 MG TAB PO PRN (09:13)
[2017-05-08] MEDS ORDERED: HYDROcodone/Acetaminophen 5/325 mg Tablet PO PRN (09:13)
[2017-05-08] MEDS ORDERED: hydrALAZINE 20 MG/ML VIAL SLOW IVP PRN (09:13)
[2017-05-08] MEDS ORDERED: Senokot 8.6 MG TAB PO PRN (09:13)
[2017-05-08] MEDS ORDERED: Mag-Al 1200 mg/1200 mg/30 ML UDCUP PO PRN (09:13)
--- NOTE | 2017-05-08 11:46 | PDOC.PN ---
- Subjective Encounter Start Date: 05/08/17 Encounter Start Time: 09:30 -: old records requested/rev Patient seen and examined. No new complaints. No overnight events - Objective MAR Reviewed: Yes Vital Signs & Weight: Vital Signs (12 hours) Temp Pulse Resp BP Pulse Ox 05/08/17 08:00 98.1 F 66 20 117/49 L 96 05/08/17 07:59 68 05/08/17 06:57 68 16 94 L 05/08/17 01:12 16 05/08/17 00:00 97.4 F L 66 18 122/61 96 I&O: 05/07/17 05/08/17 05/09/17 06:59 06:59 06:59 Intake Total 1385 480 240 Balance 1385 480 240 Result Diagrams: 05/06/17 06:41 05/08/17 04:24 Additional Labs: Accuchecks 05/08/17 05/07/17 05/07/17 05:09 20:56 17:29 POC Glucose 120 H 299 H 121 H 05/07/17 11:35 POC Glucose 239 H Phys Exam - Physical Examination Constitutional: NAD HEENT: PERRLA, moist MMs, sclera anicteric Neck: no JVD, supple Respiratory: no wheezing, no rales, no rhonchi Cardiovascular: RRR, no significant murmur, no rub Gastrointestinal: soft, non-tender, 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, positive bowel sounds left aka, right bka with prosthesis Neurological: non-focal Lymphatic: no nodes Psychiatric: normal affect Skin: no rash, normal turgor Dx/Plan (1) Acute on chronic combined systolic and diastolic heart failure Code(s): I50.43 - ACUTE ON CHRONIC COMBINED SYSTOLIC AND DIASTOLIC HRT FAIL Status: Acute Comment: ef 40-45% (2) CAD (coronary artery disease) Code(s): I25.10 - ATHSCL HEART DISEASE OF [place] CORONARY ARTERY W/O ANG PCTRS Status: Chronic (3) CKD (chronic kidney disease) stage 4, GFR 15-29 ml/min Code(s): N18.4 - CHRONIC KIDNEY DISEASE, STAGE 4 (SEVERE) Status: Chronic (4) HLD (hyperlipidemia) Code(s): E78.5 - HYPERLIPIDEMIA, UNSPECIFIED Status: Chronic (5) HTN (hypertension) Code(s): I10 - ESSENTIAL (PRIMARY) HYPERTENSION Status: Chronic Qualifiers: Hypertension type: essential hypertension Qualified Code(s): I10 - Essential (primary) hypertension (6) Hyponatremia Code(s): E87.1 - HYPO-OSMOLALITY AND HYPONATREMIA Status: Chronic (7) PVD (peripheral vascular disease) Code(s): I73.9 - PERIPHERAL VASCULAR DISEASE, UNSPECIFIED Status: Chronic (8) SIADH (syndrome of inappropriate ADH production) Status: Chronic - Plan cont current plan of care, PT/OT, public health social worker * now euvolemic * not safe discharge at home * needs snu or rehab placement * medication reviewed as below * symptomatic treatment. Review of Systems - Review of Systems Constitutional: negative: Fever, Chills, Sweats, Weakness, Malaise, Other ENT: negative: Ear Pain, Ear Discharge, Nose Pain, Nose Discharge, Nose Congestion, Mouth Pain, Mouth Swelling, Throat Pain, Throat Swelling, Other Respiratory: negative: Cough, Dry, Shortness of Breath, Hemoptysis, SOB with Excertion, Pleuritic Pain, Sputum, Wheezing Cardiovascular: negative: Chest Pain, Palpitations, Orthopnea, Paroxysmal Noc. Dyspnea, Edema, Light Headedness, Other Gastrointestinal: negative: Nausea, Vomiting, Abdominal Pain, Diarrhea, Constipation, Melena, Hematochezia, Other Genitourinary: negative: Dysuria, Frequency, Incontinence, Hematuria, Retention , Other - Medications/Allergies Allergies/Adverse Reactions: Allergies Allergy/AdvReac Type Severity Reaction Status Date / Time zolpidem [From Ambien] AdvReac Verified 06/21/16 20:25 Medications: Current Medications Acetaminophen (Tylenol) 650 mg PO Q6H PRN PRN Reason: Headache/Fever or Pain Last Admin: 05/07/17 17:21 Dose: 650 mg Hydrocodone Bitart/Acetaminophen ([place] 5/325) 1 tab PO Q4H PRN PRN Reason: Moderate Pain (4-6) Al Hydroxide/Mg Hydroxide (Maalox) 15 ml PO Q4H PRN PRN Reason: Heartburn or Indigestion Albuterol/Ipratropium (Duoneb) 3 ml EZPAP [id number] RENA Last Admin: 05/08/17 06:57 Dose: 3 ml Amlodipine Besylate (Norvasc) 5 mg PO DAILY [facility] Last Admin: 05/08/17 07:59 Dose: 5 mg Artificial Tears (Tears Renewed 15ml Bottle) 0 drop EA EYE PRN PRN PRN Reason: Dry Eyes Atorvastatin Calcium (Lipitor) 80 mg PO HS [facility] Last Admin: 05/07/17 21:07 Dose: 80 mg Carvedilol (Coreg) 25 mg PO BID [facility] Last Admin: 05/08/17 07:59 Dose: 25 mg Dextrose/Water (Dextrose 50%) 25 gm SLOW IVP PRN PRN PRN Reason: Hypoglycemia Enoxaparin Sodium (Lovenox) 30 mg SC 0900 [facility] Last Admin: 05/08/17 07:58 Dose: 30 mg Furosemide (Lasix) 20 mg PO DAILY [facility] Last Admin: 05/08/17 07:59 Dose: 20 mg Glipizide (Glucotrol) 5 mg PO DAILY-[facility] Last Admin: 05/08/17 07:59 Dose: 5 mg Glucagon (Glucagon) 1 mg IM PRN PRN PRN Reason: Hypoglycemia Guaifenesin (Robitussin Sf) 200 mg PO Q4H PRN PRN Reason: Cough Hydralazine HCl (Apresoline) 50 mg PO TID [facility] Last Admin: 05/08/17 07:59 Dose: 50 mg Hydralazine HCl (Apresoline) 10 mg SLOW IVP Q4H PRN PRN Reason: Systolic BP > 180 Dextrose/Water (D5w) 1,000 mls @ 0 mls/hr IV .Q0M PRN; As Directed PRN Reason: Hypoglycemia Insulin Human Lispro (Humalog) 0 units SC .MODERATE SLIDING SC PRN PRN Reason: Moderate Correctional Scale Last Admin: 05/07/17 12:34 Dose: 4 unit Insulin Human Lispro (Humalog) 0 units SC .BEDTIME SLIDING SC PRN PRN Reason: Bedtime Correctional Scale Last Admin: 05/07/17 21:53 Dose: 3 unit Isosorbide Mononitrate (Imdur Er) 30 mg PO DAILY [facility] Last Admin: 05/08/17 07:58 Dose: 30 mg Loperamide HCl (Imodium) 2 mg PO PRN PRN PRN Reason: Diarrhea/Loose Stools Loratadine (Claritin) 10 mg PO DAILYPRN PRN PRN Reason: Sinus Symptoms Magnesium Hydroxide (Milk Of Magnesium) 30 ml PO DAILYPRN PRN PRN Reason: Constipation Mineral Oil/White Petrolatum (Eucerin Cream) 0 gm TOP BIDPRN PRN PRN Reason: Dry Skin Nitroglycerin (Nitro-Bid 2% Ointment) 0.5 inch TOP Q8HR [facility] Last Admin: 05/08/17 05:10 Dose: 0.5 inch Ondansetron HCl (Zofran Odt) 4 mg PO Q6H PRN PRN Reason: Nausea/Vomiting Ondansetron HCl (Zofran) 4 mg IVP Q6H PRN PRN Reason: Nausea/Vomiting Pantoprazole Sodium (Protonix) 40 mg PO DAILY [facility] Phenol (Chloraseptic [place] 180 Ml Bot) 0 ml PO PRN PRN PRN Reason: Sore Throat Senna (Senokot) 2 tab PO HSPRN PRN PRN Reason: Constipation Sodium Chloride (Flush - Normal Saline) 10 ml IVF Q12HR [facility] Last Admin: 05/08/17 07:59 Dose: 10 ml Sodium Chloride ([place] Nasal [place] 0.65%) 0 ml EA NARE QIDPRN PRN PRN Reason: Nasal Congestion
--- NOTE | 2017-05-08 12:51 | PRG ---
DATE OF SERVICE: 05/08/2017 SUBJECTIVE: Mr. Mancera is doing well, no current complaints. No current CV complaints. His only complaint is constipation. No chest pain or pressure noted. PHYSICAL EXAMINATION: VITAL SIGNS: Blood pressure 120/61, pulse 68, respirations 20. LUNGS: Clear to auscultation. CARDIAC: Regular rate and rhythm. ABDOMEN: Soft, nontender, nondistended. EXTREMITIES: Bilateral AKA. LABORATORY DATA: Hemoglobin 9.1. Creatinine 2.67, which is down from 2.86. IMPRESSION: 1. Acute on chronic systolic heart failure. 2. Angina. 3. Coronary artery disease. RECOMMENDATIONS: Continue Norvasc, statin, and beta maylin therapy. CV status appears stable. The patient is awaiting placement.
[2017-05-08] MEDS: HumaLOG 300 UNITS/3 ML VIAL SC PRN (19:58)
[2017-05-08] MEDS: Atorvastatin Calcium 40 MG TAB PO SCH (21:12)
[2017-05-09 05:32] LABS: #Basophils 0.1 thou/uL (0.0-0.2); #Eosinphils 0.4 thou/uL (0.0-0.7); #Lymphocytes 1.9 thou/uL (1.20-3.40); #Neutrophils 5.8 thou/uL (1.40-6.50); %Basophils 0.7 % (0.0-1.0); %Eosinophils 4.3 % (0.0-10.0); %Lymphocytes 20.5 % (21.0-51.0); %Monocytes 11.1 % (0.0-10.0); Hematocrit 28.4 % (42.0-52.0); Mean Platelet Volume 7.5 fL (7.4-10.4); Red Blood Cell (RBC) Count 2.97 mill/uL (4.70-6.10); White Blood Cell (WBC) Count 9.1 thou/uL (4.8-10.8)
[2017-05-09 05:47] LABS: Anion Gap 16 mmol/L (10-20); BUN (Urea Nitrogen) 41 mg/dL (8.4-25.7); BUN/Creatinine Ratio 15.71; Calc. Creatinine Clearance 29 mL/min (70-130); Calcium 9.5 mg/dL (7.8-10.44); Carbon Dioxide 22 mmol/L (23-31); Chloride 93 mmol/L (98-107); Estimated GFR-MDRD 24; Phosphorus 4.6 mg/dL (2.3-4.7)
[2017-05-09] MEDS: Nitroglycerin 2% Ointment 1 INCH/1 GM Packet TOP SCH (06:10)
[2017-05-09] MEDS: glipiZIDE 5 MG TAB PO SCH (07:50)
[2017-05-09] MEDS: Carvedilol 25 MG TAB PO SCH (07:51)
[2017-05-09] MEDS: Amlodipine 5 MG TAB PO SCH (07:51)
[2017-05-09] MEDS: hydrALAZINE 25 MG TAB PO SCH (07:51)
[2017-05-09] MEDS: Enoxaparin Sodium 30 MG/0.3 ML SYRINGE SC SCH (07:52)
[2017-05-09] MEDS: Furosemide 20 MG TAB PO SCH (07:52)
[2017-05-09 08:19] VITALS: TEMP 97.8
[2017-05-09 11:39] VITALS: BP 124/53
--- NOTE | 2017-05-09 13:10 | PDOC.PN ---
- Subjective Encounter Start Date: 05/09/17 Encounter Start Time: 07:05 Patient seen and examined. No new complaints. No overnight events - Objective MAR Reviewed: Yes Vital Signs & Weight: Vital Signs (12 hours) Temp Pulse Pulse Resp BP BP BP 05/09/17 09:52 83 124/53 L 05/09/17 08:18 97.8 F 62 18 156/62 H 05/09/17 08:00 97.8 F 62 18 05/09/17 07:51 62 156/62 H 05/09/17 07:15 62 15 05/09/17 01:28 Pulse Ox Pulse Ox 05/09/17 09:52 94 L 05/09/17 08:18 95 05/09/17 08:00 95 05/09/17 07:51 05/09/17 07:15 96 05/09/17 01:28 98 I&O: 05/08/17 05/09/17 05/10/17 06:59 06:59 06:59 Intake Total 480 840 Balance 480 840 Result Diagrams: 05/09/17 04:35 05/09/17 04:35 Additional Labs: Accuchecks 05/09/17 05/08/17 05/08/17 05:09 19:46 16:36 POC Glucose 160 H 287 H 259 H Phys Exam - Physical Examination Constitutional: NAD HEENT: PERRLA, moist MMs, sclera anicteric Neck: no JVD, supple Respiratory: no wheezing, no rales, no rhonchi Cardiovascular: RRR, no significant murmur, no rub Gastrointestinal: soft, non-tender, 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, positive bowel sounds left aka, right bka Neurological: non-focal Lymphatic: no nodes Psychiatric: normal affect Skin: no rash, normal turgor Dx/Plan (1) Acute on chronic combined systolic and diastolic heart failure Code(s): I50.43 - ACUTE ON CHRONIC COMBINED SYSTOLIC AND DIASTOLIC HRT FAIL Status: Acute Comment: ef 40-45% (2) CAD (coronary artery disease) Code(s): I25.10 - ATHSCL HEART DISEASE OF [place] CORONARY ARTERY W/O ANG PCTRS Status: Chronic (3) CKD (chronic kidney disease) stage 4, GFR 15-29 ml/min Code(s): N18.4 - CHRONIC KIDNEY DISEASE, STAGE 4 (SEVERE) Status: Chronic (4) HLD (hyperlipidemia) Code(s): E78.5 - HYPERLIPIDEMIA, UNSPECIFIED Status: Chronic (5) HTN (hypertension) Code(s): I10 - ESSENTIAL (PRIMARY) HYPERTENSION Status: Chronic Qualifiers: Hypertension type: essential hypertension Qualified Code(s): I10 - Essential (primary) hypertension (6) Hyponatremia Code(s): E87.1 - HYPO-OSMOLALITY AND HYPONATREMIA Status: Chronic (7) PVD (peripheral vascular disease) Code(s): I73.9 - PERIPHERAL VASCULAR DISEASE, UNSPECIFIED Status: Chronic (8) SIADH (syndrome of inappropriate ADH production) Status: Chronic - Plan cont current plan of care, clinical social work therapist * medication reviewed as below * symptomatic treatment * see discharge nydia * dc to SN[facility]. Review of Systems - Review of Systems ENT: negative: Ear Pain, Ear Discharge, Nose Pain, Nose Discharge, Nose Congestion, Mouth Pain, Mouth Swelling, Throat Pain, Throat Swelling, Other Respiratory: negative: Cough, Dry, Shortness of Breath, Hemoptysis, SOB with Excertion, Pleuritic Pain, Sputum, Wheezing Cardiovascular: negative: Chest Pain, Palpitations, Orthopnea, Paroxysmal Noc. Dyspnea, Edema, Light Headedness, Other Gastrointestinal: negative: Nausea, Vomiting, Abdominal Pain, Diarrhea, Constipation, Melena, Hematochezia, Other Genitourinary: negative: Dysuria, Frequency, Incontinence, Hematuria, Retention , Other Musculoskeletal: negative: Neck Pain, Shoulder Pain, Arm Pain, Back Pain, Hand Pain, Leg Pain, Foot Pain, Other - Medications/Allergies Allergies/Adverse Reactions: Allergies Allergy/AdvReac Type Severity Reaction Status Date / Time zolpidem [From Ambien] AdvReac Verified 06/21/16 20:25
--- NOTE | 2017-05-09 15:37 | DIS ---
PRIMARY CARE PHYSICIAN: Dr. Iron Joseph. DATE OF ADMISSION: 05/05/2017 DATE OF DISCHARGE: 05/09/2017 DISCHARGE DISPOSITION: [facility]. PRIMARY DISCHARGE DIAGNOSES: 1. Acute on chronic combined systolic and diastolic heart failure exacerbation. 2. Physical deconditioning. 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 PRIMARY PROCEDURE/OPERATION: None. RADIOLOGICAL INVESTIGATION: Chest x-ray on admission showed no acute cardiopulmonary process. Venti lation perfusion scan showed low probability of PE. SIGNIFICANT LABORATORY DATA: WBC 9.1, hemoglobin 9.8, platelet 233. D-dimer 1.50, sodium 127, potas sium 3.6, chloride 93, BUN 41, creatinine 2.61, calcium 9.5, phosphorus 4.6, albumin 3.8. Urinalysis unremarkable. DISCHARGE MEDICATIONS: Amlodipine 5 mg p.o. daily, aspirin 81 mg p.o. daily, Lipitor 80 mg p.o. campbell y, Coreg 25 mg p.o. b.i.d., Colace 100 mg p.o. daily, Lasix 20 mg p.o. daily, hydralazine 50 mg t.i.d ., Glucotrol 5 mg p.o. daily, metformin 1000 mg p.o. b.i.d., and Januvia 50 mg p.o. daily. CONTRAINDICATIONS: Patient is not on YEYO inhibitor or ARB because of renal failure and contraindicat ed. ALLERGIES: AMBIEN. TEST RESULTS PENDING ON DISCHARGE: None. DISCHARGE PLAN: Post hospital, the patient is discharged to long-term home. Subsequently, santos dawson will follow up with [facility]. HOSPITAL COURSE: A 77-year-old male who was admitted on 05/05/[address] Morrow please see H&P fo r further details. The patient was admitted for increasing shortness of breath. Patient was also hernandes ving chest pain. The patient was found with acute systolic and diastolic congestive heart failure ex acerbation. He was admitted to telemetry floor and he had a cardiology evaluation. He also had nega tive 3 cardiac enzyme. His sodium is chronically low and that is related with SIADH. This patient h as chronic kidney disease and during this admission, Dr. Sainz was following. Regarding his cardiac fa ilure and chest pain, Cardiology was following. At this point, patient is medically stable. This patient was transferred to medical [facility] for [facility] and with the help of family caseworker, we are sending him to long-term unit. The patient is seen and examined at bedside today. Please see my progress note from today for furthe r detail. Paper work for discharge done. Discharge medication reconciliation done. Total time spent on discharge day 31 minutes.
== END 2017-05-09 11:01 | DRG 291 ==
LOC: ERS 22:52 → ERHOLD 05-05 01:00 → 2NO 05-05 12:00 → T4-B 05-07 14:35
PROVIDERS: ADMIT Internal Medicine; ATTEND Internal Medicine
DX: I13.0 Hypertensive heart and chronic kidney disease with heart failure and stage 1 through stage 4 chronic kidney disease, or unspecified chronic kidney disease (principal); I50.43 Acute on chronic combined systolic (congestive) and diastolic (congestive) heart failure; N18.4 Chronic kidney disease, stage 4 (severe); E11.22 Type 2 diabetes mellitus with diabetic chronic kidney disease; E11.42 Type 2 diabetes mellitus with diabetic polyneuropathy; E22.2 Syndrome of inappropriate secretion of antidiuretic hormone; I25.82 Chronic total occlusion of coronary artery; R44.3 Hallucinations, unspecified; Z89.612 Acquired absence of left leg above knee; I73.9 Peripheral vascular disease, unspecified; I25.119 Atherosclerotic heart disease of native coronary artery with unspecified angina pectoris; Z89.511 Acquired absence of right leg below knee; E78.00 Pure hypercholesterolemia, unspecified; Z79.4 Long term (current) use of insulin; Z87.891 Personal history of nicotine dependence; J44.9 Chronic obstructive pulmonary disease, unspecified; Z95.1 Presence of aortocoronary bypass graft; I25.5 Ischemic cardiomyopathy
CPT/HCPCS: 36415; 36416; 71010; 78582; 80048; 80053; 80069; 81003; 81015; 82553; 83690; 83880; 84484; 85025; 85379; 93005; 93798; 94640; 96372; 96374; 96375; A4216; A9540; A9558; G8978-GP-CL; G8979-GP-CJ; G8987-GO-CJ; G8988-GO-CH; J0696; J1650; J1940; J7620

== ENCOUNTER 2017-05-18 07:54 | Inpatient (IN) | payer MEDICARE ==
[2017-05-18 09:06] LABS: #Eosinphils 0.1 thou/uL (0.0-0.7); #Monocytes 0.8 thou/uL (0.11-0.59); #Neutrophils 6.2 thou/uL (1.40-6.50); %Basophils 0.4 % (0.0-1.0); %Eosinophils 1.5 % (0.0-10.0); %Lymphocytes 11.6 % (21.0-51.0); %Monocytes 10.3 % (0.0-10.0); Hematocrit 25.2 % (42.0-52.0); Mean Platelet Volume 7.9 fL (7.4-10.4); White Blood Cell (WBC) Count 8.1 thou/uL (4.8-10.8)
[2017-05-18 09:08] LABS: Oxyhemoglobin 93.4 % (94.0-97.0); Sodium 130 mmol/L (135-148)
[2017-05-18 09:09] LABS: Mode ROOM AIR; Vent NO
[2017-05-18 09:15] LABS: Lactic Acid - Sepsis 1.2 mmol/L (0.5-2.2)
[2017-05-18 09:20] LABS: ALT (SGPT) 31 U/L (8-55); AST (SGOT) 20 U/L (5-34); Alkaline Phosphatase 44 U/L (40-150); Anion Gap 12 mmol/L (10-20); BUN (Urea Nitrogen) 54 mg/dL (8.4-25.7); Bilirubin, Total 0.4 mg/dL (0.2-1.2); CK (CPK) 108 U/L (30-200); Calc. Creatinine Clearance 0 mL/min (70-130); Calcium 9.2 mg/dL (7.8-10.44); Carbon Dioxide 23 mmol/L (23-31); Chloride 98 mmol/L (98-107); Estimated GFR-MDRD 23; Globulin 2.8 g/dL (2.4-3.5); Protein, Total 6.5 g/dL (5.8-8.1)
[2017-05-18 09:24] LABS: Troponin I 0.045 ng/mL (< 0.028)
[2017-05-18] MEDS ORDERED: Furosemide 40 MG/4 ML VIAL ONE (10:30)
[2017-05-18] MEDS ORDERED: Acetaminophen 500 MG TAB ONE (10:30)
--- NOTE | 2017-05-18 10:50 | RAD ---
PORTABLE CHEST: HISTORY: Respiratory distress. COMPARISON: A 03/23/17 exam. FINDINGS: Heart size is enlarged with postop sternotomy change. Pulmonary vessels appear engorged with increas ed lung markings suggesting some mild edema. IMPRESSION: Cardiomegaly with mild pulmonary edema change. POS: [facility]
[2017-05-18 12:25] LABS: Troponin I 0.056 ng/mL (< 0.028)
--- NOTE | 2017-05-18 12:35 | HP ---
DATE OF ADMISSION: 05/18/2017s ADMITTING PHYSICIAN: Dr. Vijay Schrader. PRIMARY CARE PHYSICIAN: Dr. Joseph. CHIEF COMPLAINT: Shortness of breath. HISTORY OF PRESENT ILLNESS: The patient is a 77-year-old gentleman with history of chronic congestiv e heart failure. Patient reports that he began to suffer from severe shortness of breath beginning i n the middle of the night last night. He also reports that he had an episode of hypoglycemia. The p atient was sent from a local group home and according to EMS and the group home staff, he was in respiratory distress and had a blood sugar of actually 154. EMS reports that the breathing treatment was given at the group home. The patient is somewhat of a poor historian and reports that he feel s like he is breathing harder than normal. He has been suffering from coughing bouts. The patient d id deny chest pain or pressure, fever and chills. He also reports that he has been suffering from pa in in his right leg and that he feels very weak. He does report that he did not eat dinner last nigh t and that possibly his blood sugar was little low. REVIEW OF SYSTEMS: The following complete review of systems was negative, unless otherwise mentioned in the HPI or below: CONSTITUTIONAL: Weight loss or gain, sense of well-being, ability to conduct usual activities, exerc ise tolerance. SKIN/BREAST: Rash, itching, changes in hair growth or loss, nail changes, breast lumps, tenderness, swelling, nipple discharge. EYES: Vision, double vision, tearing, blind spots, pain. ENT/MOUTH: Headaches (location, time of onset, duration, precipitating factors), vertigo, lightheade dness, injury. Vision, double vision, tearing, blind spots, pain, nose bleeding, colds, obstruction, discharge, dental difficulties, gingival bleeding, dentures, neck stiffness, pain, tenderness, janina s in thyroid or other areas. CARDIOVASCULAR: Precordial pain, substernal distress, palpitations, syncope, dyspnea on exertion, or thopnea, nocturnal paroxysmal dyspnea, edema, cyanosis, hypertension, heart murmurs, varicosities, ph lebitis, claudication. RESPIRATORY: Pain, shortness of breath, wheezing, stridor, cough, hemoptysis, fever or night sweats GASTROINTESTINAL: Poor appetite, dysphagia, indigestion, abdominal pain, heartburn, eructation, naus ea, vomiting, hematemesis, jaundice, constipation, or diarrhea, abnormal stools (francis-colored, tarry, bloody, greasy, foul smelling), flatulence, hemorrhoids, recent changes in bowel habits. GENITOURINARY: Urgency, frequency, dysuria, nocturia, hematuria, polyuria, oliguria, unusual (or mimi nge in) color of urine, stones, hesitancy, change in size of stream, dribbling, acute retention or in continence, libido, potency. MUSCULOSKELETAL: Pain, swelling, redness or heat of muscles or joints, limitation, of motion, muscul ar weakness, atrophy, cramps. NEUROLOGIC/PSYCHIATRIC: Convulsions, paralyses, tremor, incoordination, paresthesias, difficulties w ith memory of speech, sensory or motor disturbances, or muscular coordination (ataxia, tremor), emoti onal problems, anxiety, depression, previous psychiatric care, unusual perceptions, hallucinations. ALLERGY/IMMUNOLOGIC: Skin rash, anemia, bleeding tendency, polydipsia, polyuria, intolerance to heat or cold. PAST MEDICAL HISTORY: Significant for coronary artery disease, diabetes type 2, hypertension and con gestive heart failure. PAST SURGICAL HISTORY: Left-sided [id number] amputation, right-sided [id number] amputation, CABG, left wrist surgery. PSYCHIATRIC HISTORY: Unknown at this time. SOCIAL HISTORY: The patient resides in a group home. Denies drug, alcohol, or tobacco. He did st op smoking approximately 10 years ago. FAMILY HISTORY: There is a paternal history of collagen vascular disease. HOME MEDICATIONS: Unknown at this time. DRUG ALLERGIES: Reportedly, he is allergic to AMBIEN. PHYSICAL EXAMINATION: VITAL SIGNS: Temperature of 97.9, blood pressure 139/64, pulse 59, respirations 22, satting 96% on r oom air. CONSTITUTIONAL: He is in no acute distress, seems to be alert and oriented to person, place, time. HEENT: Head exam is normocephalic, atraumatic. Pupils are equally round and reactive to light with extraocular muscles intact. Ear exam: External ear normal. Pharynx normal. NECK: Trachea midline. No JVD. Full range of motion. RESPIRATORY: He does have scant rales present diffusely. No wheezing, no rhonchi. HEART: Regular rate and rhythm. No murmurs, regurg or gallops. ABDOMEN: Normoactive bowel sounds x4, nontender, nondistended, no rebound, no guarding. EXTREMITIES: No clubbing, cyanosis. The right side does have a below the knee amputation and the le ft lower extremity does have an above the knee amputation. NEUROLOGIC: Alert and oriented x3, no focal deficits. LABORATORY DATA AND IMAGES: Cardiac enzymes show a CK-MB of 2.0, troponin I of 0.045. BNP of 879.6, CK of 108. CMP: Sodium 129, potassium 4.2, chloride 98, CO2 23, BUN 54, creatinine 2.7, glucose 13 4, calcium 9.2, AST 20, ALT 31, albumin 3.7, lactic acid of 1.2. Arterial ABG: CO2 of 35.5, O2 of 7 4.5, pH of 7.40. CBC shows a white count of 8.1, hemoglobin 8.4, hematocrit 25.2 with platelets 236. Bedside glucose 148. Chest x-ray: Cardiomegaly with mild pulmonary edema changes. ASSESSMENT AND PLAN: 1. Acute on chronic congestive heart failure, most likely systolic. 2. Hypertension. 3. Diabetes type 2. 4. Debility. PLAN: The patient will be admitted to the telemetry unit. He will be cautiously diuresed. At this time, his enzymes appeared to be indeterminate. This is most likely from demand ischemia. We will f ollow serial enzymes and if necessary obtain Cardiology assessment. Estimated length of stay 2-3 day s.
[2017-05-18] MEDS ORDERED: Zolpidem Tartrate 5 MG TAB PO PRN (13:03)
[2017-05-18] MEDS ORDERED: Milk Of Magnesia 30 ML UDCUP PO PRN (13:03)
[2017-05-18] MEDS ORDERED: Ondansetron HCl/PF 4 MG/2 ML Vial IVP PRN (13:03)
[2017-05-18] MEDS ORDERED: Dextrose 5% in Water 1,000 ML IV PRN (13:06)
[2017-05-18] MEDS ORDERED: Dextrose 50% Abboject 50 ML SYRINGE SLOW IVP PRN (13:06)
[2017-05-18] MEDS: hydrALAZINE 25 MG TAB PO SCH ×2 (15:32→21:34)
[2017-05-18] MEDS: Acetaminophen 325 MG TAB PO PRN ×2 (15:32→21:48)
[2017-05-18] MEDS: Heparin 5,000 UNITS/ML VIAL SC SCH ×2 (15:33→21:34)
[2017-05-18] MEDS: Furosemide 20 MG/2 ML VIAL SLOW IVP SCH (15:34)
[2017-05-18] MEDS: Sodium Chloride 0.9% 10 ML ONE (15:48)
[2017-05-18 20:43] VITALS: BMI 27.8
[2017-05-18] MEDS: Carvedilol 25 MG TAB PO SCH (21:35)
[2017-05-19] MEDS: Furosemide 20 MG/2 ML VIAL SLOW IVP SCH ×2 (04:51→14:48)
[2017-05-19] MEDS: Acetaminophen 325 MG TAB PO PRN ×2 (04:54→15:32)
[2017-05-19 05:26] LABS: #Eosinphils 0.2 thou/uL (0.0-0.7); #Lymphocytes 1.1 thou/uL (1.20-3.40); #Monocytes 0.8 thou/uL (0.11-0.59); #Neutrophils 6.1 thou/uL (1.40-6.50); %Basophils 0.4 % (0.0-1.0); %Eosinophils 2.2 % (0.0-10.0); %Lymphocytes 12.8 % (21.0-51.0); %Monocytes 10.3 % (0.0-10.0); Hematocrit 26.3 % (42.0-52.0); Mean Platelet Volume 8.3 fL (7.4-10.4); Red Blood Cell (RBC) Count 2.73 mill/uL (4.70-6.10); White Blood Cell (WBC) Count 8.2 thou/uL (4.8-10.8)
[2017-05-19 05:41] LABS: Anion Gap 14 mmol/L (10-20); BUN (Urea Nitrogen) 51 mg/dL (8.4-25.7); Calc. Creatinine Clearance 34 mL/min (70-130); Calcium 9.5 mg/dL (7.8-10.44); Carbon Dioxide 24 mmol/L (23-31); Chloride 97 mmol/L (98-107); Estimated GFR-MDRD 26
[2017-05-19] MEDS: Amlodipine 5 MG TAB PO SCH (08:35)
[2017-05-19] MEDS: Aspirin 81 mg Enteric Coated Tablet PO SCH (08:36)
[2017-05-19] MEDS: Heparin 5,000 UNITS/ML VIAL SC SCH ×3 (08:36→21:36)
[2017-05-19] MEDS: hydrALAZINE 25 MG TAB PO SCH ×3 (08:36→21:37)
[2017-05-19] MEDS: Carvedilol 25 MG TAB PO SCH ×2 (08:36→21:37)
[2017-05-19] MEDS: Atorvastatin Calcium 40 MG TAB PO SCH (08:38)
[2017-05-19] MEDS ORDERED: FLU VACC TS2017-18 (>65YR) 0.5 ML SYRINGE IM ONE (09:00)
--- NOTE | 2017-05-19 09:36 | PDOC.PN ---
- Subjective Encounter Start Date: 05/19/17 Encounter Start Time: 07:10 -: old records requested/rev pt c/o dyspnea, c/o right hip pain, no fever, no fall history - Objective Resuscitation Status: Resuscitation Status FULL:Full Resuscitation MAR Reviewed: Yes Vital Signs & Weight: Vital Signs (12 hours) Temp Pulse Resp BP BP Pulse Ox 05/19/17 08:36 64 05/19/17 08:35 64 176/105 H 05/19/17 08:28 98.3 F 64 20 176/105 H 93 L 05/19/17 04:52 62 185/79 H 05/19/17 03:33 60 20 95 05/19/17 00:43 55 L 18 148/69 H Weight Weight 218 lb 14.4 oz I&O: 05/18/17 05/19/17 05/20/17 06:59 06:59 06:59 Intake Total 200 Output Total 600 Balance -400 Result Diagrams: 05/19/17 04:46 05/19/17 04:46 Additional Labs: Accuchecks 05/19/17 05/18/17 05/18/17 06:08 20:28 15:36 POC Glucose 100 197 H 129 H 05/18/17 12:36 POC Glucose 61 L EKG Reviewed by me: Yes (NSR) Phys Exam - Physical Examination Constitutional: NAD HEENT: PERRLA, moist MMs, sclera anicteric Neck: no JVD, supple Respiratory: no wheezing, no rhonchi basal rales Cardiovascular: RRR, no significant murmur, no rub Gastrointestinal: soft, non-tender, 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, positive bowel sounds left AKA, right BKA Neurological: non-focal, normal sensation Lymphatic: no nodes Psychiatric: normal affect, A&O x 3 Skin: no rash, normal turgor Dx/Plan (1) Acute on chronic combined systolic and diastolic heart failure Code(s): I50.43 - ACUTE ON CHRONIC COMBINED SYSTOLIC AND DIASTOLIC HRT FAIL Status: Acute Comment: ef 40-45% (2) Elevated troponin Code(s): R74.8 - ABNORMAL LEVELS OF OTHER SERUM ENZYMES Status: Acute Comment: demand ischemia (3) CAD (coronary artery disease) Code(s): I25.10 - ATHSCL HEART DISEASE OF [place] CORONARY ARTERY W/O ANG PCTRS Status: Chronic (4) CKD (chronic kidney disease) stage 4, GFR 15-29 ml/min Code(s): N18.4 - CHRONIC KIDNEY DISEASE, STAGE 4 (SEVERE) Status: Chronic (5) HLD (hyperlipidemia) Code(s): E78.5 - HYPERLIPIDEMIA, UNSPECIFIED Status: Chronic (6) HTN (hypertension) Code(s): I10 - ESSENTIAL (PRIMARY) HYPERTENSION Status: Chronic Qualifiers: (7) Hyponatremia Code(s): E87.1 - HYPO-OSMOLALITY AND HYPONATREMIA Status: Chronic (8) PVD (peripheral vascular disease) Code(s): I73.9 - PERIPHERAL VASCULAR DISEASE, UNSPECIFIED Status: Chronic (9) SIADH (syndrome of inappropriate ADH production) Status: Chronic - Plan cont current plan of care * continue diuresis * adjust BP meds today * get hip xray for right hip pain * medication reviewed as below * symptomatic treatment. Review of Systems - Review of Systems ENT: negative: Ear Pain, Ear Discharge, Nose Pain, Nose Discharge, Nose Congestion, Mouth Pain, Mouth Swelling, Throat Pain, Throat Swelling, Other Respiratory: Shortness of Breath, SOB with Excertion. negative: Cough, Dry, Hemoptysis, Pleuritic Pain, Sputum, Wheezing Cardiovascular: negative: Chest Pain, Palpitations, Orthopnea, Paroxysmal Noc. Dyspnea, Edema, Light Headedness, Other Gastrointestinal: negative: Nausea, Vomiting, Abdominal Pain, Diarrhea, Constipation, Melena, Hematochezia, Other Genitourinary: negative: Dysuria, Frequency, Incontinence, Hematuria, Retention , Other Musculoskeletal: Leg Pain. negative: Neck Pain, Shoulder Pain, Arm Pain, Back Pain, Hand Pain, Foot Pain, Other Skin: negative: Rash, Lesions, Burton, Bruising, Other - Medications/Allergies Allergies/Adverse Reactions: Allergies Allergy/AdvReac Type Severity Reaction Status Date / Time zolpidem [From Ambien] AdvReac Verified 05/18/17 15:15 Medications: Current Medications Acetaminophen (Tylenol) 650 mg PO Q4H PRN PRN Reason: Headache/Fever or Pain Last Admin: 05/19/17 04:54 Dose: 650 mg Albuterol/Ipratropium (Duoneb) 3 ml NEB Q6H PRN PRN Reason: .DYSPNEA Last Admin: 05/19/17 03:33 Dose: 3 ml Amlodipine Besylate (Norvasc) 5 mg PO DAILY [facility] Last Admin: 05/19/17 08:35 Dose: 5 mg Aspirin (Ecotrin) 81 mg PO DAILY [facility] Last Admin: 05/19/17 08:36 Dose: 81 mg Atorvastatin Calcium (Lipitor) 80 mg PO DAILY [facility] Last Admin: 05/19/17 08:38 Dose: 80 mg Carvedilol (Coreg) 25 mg PO BID [facility] Last Admin: 05/19/17 08:36 Dose: 25 mg Dextrose/Water (Dextrose 50%) 25 gm SLOW IVP PRN PRN PRN Reason: Hypoglycemia Furosemide (Lasix) 20 mg SLOW IVP 0600,1400 [facility] Last Admin: 05/19/17 04:51 Dose: 20 mg Glucagon (Glucagon) 1 mg IM PRN PRN PRN Reason: Hypoglycemia Heparin Sodium (Porcine) (Heparin) 5,000 units SC TID [facility] Last Admin: 05/19/17 08:36 Dose: 5,000 units Hydralazine HCl (Apresoline) 50 mg PO TID [facility] Last Admin: 05/19/17 08:36 Dose: 50 mg Dextrose/Water (D5w) 1,000 mls @ 0 mls/hr IV .Q0M PRN; As Directed PRN Reason: Hypoglycemia Insulin Human Regular (Humulin R) 0 units SC .MILD SLIDING SCALE PRN PRN Reason: Mild Correctional Scale Isosorbide Mononitrate (Imdur Er) 30 mg PO DAILY [facility] Last Admin: 05/19/17 08:36 Dose: 30 mg Magnesium Hydroxide (Milk Of Magnesium) 30 ml PO DAILYPRN PRN PRN Reason: Constipation Ondansetron HCl (Zofran) 4 mg IVP Q6H PRN PRN Reason: Nausea/Vomiting
--- NOTE | 2017-05-19 13:10 | RAD ---
TWO VIEWS RIGHT HIP: HISTORY: Right hip pain. FINDINGS: AP and frogleg views right hip are obtained. Atherosclerotic calcification is seen of the right superficial femoral artery and femoral profunda. No evidence of right hip fractures, subluxations, or bony lesions seen. IMPRESSION: Normal 2 views right hip. POS: [facility]
[2017-05-19] MEDS: Sodium Chloride 0.9% 10 ML ONE (14:48)
[2017-05-19] MEDS ORDERED: Furosemide 40 MG/4 ML VIAL ONE (14:55)
[2017-05-20] MEDS: Furosemide 20 MG/2 ML VIAL SLOW IVP SCH ×2 (05:20→13:41)
[2017-05-20] MEDS: Aspirin 81 mg Enteric Coated Tablet PO SCH (09:14)
[2017-05-20] MEDS: Carvedilol 25 MG TAB PO SCH ×2 (09:14→20:29)
[2017-05-20] MEDS: Amlodipine 5 MG TAB PO SCH (09:14)
[2017-05-20] MEDS: Atorvastatin Calcium 40 MG TAB PO SCH (09:14)
[2017-05-20] MEDS: hydrALAZINE 25 MG TAB PO SCH ×3 (09:14→20:30)
[2017-05-20] MEDS: Heparin 5,000 UNITS/ML VIAL SC SCH ×3 (09:14→20:29)
--- NOTE | 2017-05-20 12:05 | PDOC.PN ---
- Subjective Encounter Start Date: 05/20/17 Encounter Start Time: 07:30 Patient seen and examined. No new complaints. No overnight events, pt slowly improving, today addressed with him code status - Objective Resuscitation Status: Resuscitation Status FULL:Full Resuscitation MAR Reviewed: Yes Vital Signs & Weight: Vital Signs (12 hours) Temp Pulse Resp BP BP Pulse Ox 05/20/17 09:47 99 05/20/17 09:44 69 16 99 05/20/17 09:14 74 05/20/17 09:08 98.2 F 74 18 153/93 H 153/93 H 98 05/20/17 04:00 97.9 F 60 18 156/77 H 96 Weight Weight 218 lb 14.4 oz I&O: 05/19/17 05/20/17 05/21/17 06:59 06:59 06:59 Intake Total 200 850 Output Total 600 1610 Balance -400 -760 Result Diagrams: 05/19/17 04:46 05/19/17 04:46 Additional Labs: Accuchecks 05/20/17 05/20/17 05/19/17 10:45 06:02 20:40 POC Glucose 227 H 140 H 193 H 05/19/17 05/19/17 16:00 12:11 POC Glucose 192 H 141 H EKG Reviewed by me: Yes Phys Exam - Physical Examination Constitutional: NAD HEENT: PERRLA, moist MMs, sclera anicteric Neck: no JVD, supple Respiratory: no wheezing, no rales, no rhonchi Cardiovascular: RRR, no significant murmur, no rub Gastrointestinal: soft, non-tender, 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, positive bowel sounds left AKA, right BKA Psychiatric: normal affect, A&O x 3 Skin: no rash, normal turgor Dx/Plan (1) Acute on chronic combined systolic and diastolic heart failure Code(s): I50.43 - ACUTE ON CHRONIC COMBINED SYSTOLIC AND DIASTOLIC HRT FAIL Status: Acute Comment: ef 40-45% (2) Elevated troponin Code(s): R74.8 - ABNORMAL LEVELS OF OTHER SERUM ENZYMES Status: Acute Comment: demand ischemia (3) CAD (coronary artery disease) Code(s): I25.10 - ATHSCL HEART DISEASE OF [place] CORONARY ARTERY W/O ANG PCTRS Status: Chronic (4) CKD (chronic kidney disease) stage 4, GFR 15-29 ml/min Code(s): N18.4 - CHRONIC KIDNEY DISEASE, STAGE 4 (SEVERE) Status: Chronic (5) HLD (hyperlipidemia) Code(s): E78.5 - HYPERLIPIDEMIA, UNSPECIFIED Status: Chronic (6) HTN (hypertension) Code(s): I10 - ESSENTIAL (PRIMARY) HYPERTENSION Status: Chronic Qualifiers: (7) Hyponatremia Code(s): E87.1 - HYPO-OSMOLALITY AND HYPONATREMIA Status: Chronic (8) PVD (peripheral vascular disease) Code(s): I73.9 - PERIPHERAL VASCULAR DISEASE, UNSPECIFIED Status: Chronic (9) SIADH (syndrome of inappropriate ADH production) Status: Chronic - Plan cont current plan of care, long term care social worker * medication reviewed as below * symptomatic treatment * continue lasix * monitor labs * code status discussed with him at length and he decided to be DNR in hospital and he also has OOH DNR * stable and improving * possible discharge in 24-48 hours. Review of Systems - Review of Systems ENT: negative: Ear Pain, Ear Discharge, Nose Pain, Nose Discharge, Nose Congestion, Mouth Pain, Mouth Swelling, Throat Pain, Throat Swelling, Other Respiratory: negative: Cough, Dry, Shortness of Breath, Hemoptysis, SOB with Excertion, Pleuritic Pain, Sputum, Wheezing Cardiovascular: negative: Chest Pain, Palpitations, Orthopnea, Paroxysmal Noc. Dyspnea, Edema, Light Headedness, Other Gastrointestinal: negative: Nausea, Vomiting, Abdominal Pain, Diarrhea, Constipation, Melena, Hematochezia, Other Genitourinary: negative: Dysuria, Frequency, Incontinence, Hematuria, Retention , Other Skin: negative: Rash, Lesions, Burton, Bruising, Other - Medications/Allergies Allergies/Adverse Reactions: Allergies Allergy/AdvReac Type Severity Reaction Status Date / Time zolpidem [From Ambien] AdvReac Verified 05/18/17 15:15 Medications: Current Medications Acetaminophen (Tylenol) 650 mg PO Q4H PRN PRN Reason: Headache/Fever or Pain Last Admin: 05/19/17 15:32 Dose: 650 mg Albuterol/Ipratropium (Duoneb) 3 ml NEB Q6H PRN PRN Reason: .DYSPNEA Last Admin: 05/20/17 09:44 Dose: 3 ml Amlodipine Besylate (Norvasc) 5 mg PO DAILY [facility] Last Admin: 05/20/17 09:14 Dose: 5 mg Aspirin (Ecotrin) 81 mg PO DAILY [facility] Last Admin: 05/20/17 09:14 Dose: 81 mg Atorvastatin Calcium (Lipitor) 80 mg PO DAILY [facility] Last Admin: 05/20/17 09:14 Dose: 80 mg Carvedilol (Coreg) 25 mg PO BID [facility] Last Admin: 05/20/17 09:14 Dose: 25 mg Dextrose/Water (Dextrose 50%) 25 gm SLOW IVP PRN PRN PRN Reason: Hypoglycemia Furosemide (Lasix) 20 mg SLOW IVP 0600,1400 [facility] Last Admin: 05/20/17 05:20 Dose: 20 mg Glucagon (Glucagon) 1 mg IM PRN PRN PRN Reason: Hypoglycemia Heparin Sodium (Porcine) (Heparin) 5,000 units SC TID [facility] Last Admin: 05/20/17 09:14 Dose: 5,000 units Hydralazine HCl (Apresoline) 50 mg PO TID [facility] Last Admin: 05/20/17 09:14 Dose: 50 mg Dextrose/Water (D5w) 1,000 mls @ 0 mls/hr IV .Q0M PRN; As Directed PRN Reason: Hypoglycemia Insulin Human Regular (Humulin R) 0 units SC .MILD SLIDING SCALE PRN PRN Reason: Mild Correctional Scale Isosorbide Mononitrate (Imdur Er) 30 mg PO DAILY [facility] Last Admin: 05/20/17 09:14 Dose: 30 mg Magnesium Hydroxide (Milk Of Magnesium) 30 ml PO DAILYPRN PRN PRN Reason: Constipation Ondansetron HCl (Zofran) 4 mg IVP Q6H PRN PRN Reason: Nausea/Vomiting
[2017-05-20] MEDS: Insulin Regular 300 UNITS/3 ML VIAL SC PRN (13:52)
[2017-05-20] MEDS ORDERED: cefTRIAXone\\ROCEPHIN 1 GM, Syringe 0.4 ML in Sterile Water 9.6 ML SLOW IVP SCH (20:00)
[2017-05-20] MEDS: Acetaminophen 325 MG TAB PO PRN (20:44)
[2017-05-20] MEDS: HYDROcodone/Acetaminophen 5/325 mg Tablet PO PRN (22:08)
[2017-05-21] MEDS: HYDROcodone/Acetaminophen 5/325 mg Tablet PO PRN (05:18)
[2017-05-21] MEDS: Furosemide 20 MG/2 ML VIAL SLOW IVP SCH ×2 (06:16→13:57)
[2017-05-21] MEDS: Acetaminophen 325 MG TAB PO PRN (06:16)
[2017-05-21] MEDS: Aspirin 81 mg Enteric Coated Tablet PO SCH (08:35)
[2017-05-21] MEDS: Amlodipine 5 MG TAB PO SCH (08:35)
[2017-05-21] MEDS: Atorvastatin Calcium 40 MG TAB PO SCH (08:35)
[2017-05-21] MEDS: Carvedilol 25 MG TAB PO SCH (08:35)
[2017-05-21] MEDS: hydrALAZINE 25 MG TAB PO SCH ×2 (08:35→14:00)
[2017-05-21] MEDS: Heparin 5,000 UNITS/ML VIAL SC SCH ×2 (08:36→14:00)
--- NOTE | 2017-05-21 10:24 | DIS ---
PRIMARY CARE PHYSICIAN: Dr. Iron Joseph DATE OF ADMISSION: 05/18/2017 DATE OF DISCHARGE: 05/21/2017 DISCHARGE DISPOSITION: residential home. PRIMARY DISCHARGE DIAGNOSES: 1. Acute on chronic systolic and diastolic congestive heart failure. 2. Demand ischemia. SECONDARY DISCHARGE DIAGNOSES: Coronary artery disease, chronic kidney disease stage 4, hypertension , dyslipidemia, peripheral vascular disease. PRIMARY PROCEDURE/OPERATION: None. RADIOLOGICAL INVESTIGATION: Chest x-ray on admission showed cardiomegaly and mild pulmonary vascular congestion. Right hip x-ray showed normal findings. SIGNIFICANT LABS: WBC 8.2, hemoglobin 8.9, platelets 236. Sodium 131, potassium 3.8, BUN 51, creati nine 2.46, calcium 9.5, troponin 0.050, lactic acid 1.2. BNP 879.6. LFT normal. Blood culture was contaminated which showed coagulase negative Staph aureus. DISCHARGE MEDICATIONS: Amlodipine 5 mg p.o. daily, aspirin 81 mg p.o. daily, Lipitor 80 mg p.o. at b edtime, Coreg 25 mg p.o. b.i.d., Colace 100 mg p.o. daily, Lasix 40 mg p.o. b.i.d., Glucotrol 5 mg p .o. daily, hydralazine 50 mg p.o. t.i.d., DuoNeb q.6 hourly p.r.n., Imdur 60 mg p.o. daily, metformin 1000 mg p.o. b.i.d., Januvia 50 mg p.o. daily. CONTRAINDICATIONS: Patient is not on YEYO inhibitor or ARB in view of systolic and diastolic heart fa ilure because of renal failure and risk of hyperkalemia and that is why contraindicated, but patient is on hydralazine and mononitrate regimen instead. INPATIENT CONSULTANTS: None. ALLERGIES: AMBIEN. DISCHARGE PLAN: Post hospital, the patient will follow up with primary care physician in 1 week. e patient will follow up with [facility]. HOSPITAL COURSE: A 77-year-old male who lives at [facility]. The patient was a dmitted by Dr. Raciel Linares on 05/18/2017. Please see his H&P for further details. The patient was sent to the emergency room from [facility] for increasing shortness of breath. The patient was fou nd with pulmonary vascular congestion. His chest x-ray showed cardiomegaly and pulmonary vascular co ngestion. His BNP was elevated. He has elevated troponin from demand ischemia. We admitted this pa lauren in telemetry floor for acute on chronic systolic and diastolic congestive heart failure exacerb ation. He had echocardiography during previous admission. He is treated with Lasix while in [facility] with significant improvement. While in hospital, he was complaining of right hip pain and that is why we did x-ray of hip which was completely normal. His pain was controlled with pain medication and subsequently he did not have an y further pain. 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 During this admission, his blood pressure was high and that is why we increased Imdur to 60 mg p.o. daily. We also increased dose of Lasix to 40 mg p.o. b.i.d. Rest of medication was continue d as per previous. PHYSICAL EXAMINATION: This patient is seen and examined at bedside today. All other review of [facility] reviewed with him and negative. VITAL SIGNS: Currently, temperature 98.1, pulse 61, blood pressure 173/70, saturation 91% on room ai r, weight was 203 pounds. GENERAL: The patient is currently alert, awake, no acute distress. HEAD: Normocephalic, atraumatic. EYES: Pupils round, reactive to light. NECK: No JVD, no thyromegaly. LUNGS: Clear to auscultation without any wheezing or rhonchi. CARDIAC: S1, S2 regular without any murmur. ABDOMEN: Obesity present. Bowel sounds present. EXTREMITIES: Right below knee amputation and left [id number] amputation. NEUROLOGIC: Nonfocal examination. Paperwork for discharge done. Discharge medication reconciliation done. Total time spent on discharge day 31 minutes.
[2017-05-21] MEDS: Insulin Regular 300 UNITS/3 ML VIAL SC PRN (11:18)
[2017-05-21 11:54] VITALS: BP 141/63; TEMP 98.5
--- NOTE | 2017-06-14 10:41 | EKG ---
Test Reason : Blood Pressure : / mmHG Vent. Rate : 056 BPM Atrial Rate : 056 BPM P-R Int : 158 ms QRS Dur : 108 ms QT Int : 454 ms P-R-T Axes : 087 032 -04 degrees QTc Int : 438 ms Sinus bradycardia with sinus arrhythmia Incomplete right bundle branch block Nonspecific ST and T wave abnormality Abnormal ECG Confirmed by SANDY NICHOLS M.D. ([id number]), television news video editor ANNE ANDERSON ([id number]) on 06/14/2017 10:41:21 AM Referred By: Confirmed By:SANDY NICHOLS M.D.
== END 2017-05-21 14:15 | DRG 291 ==
LOC: ERS 07:54 → ERHOLD 10:40 → 2NO 14:40
PROVIDERS: ADMIT Internal Medicine Addiction Medicine; ATTEND Internal Medicine Addiction Medicine
DX: I13.0 Hypertensive heart and chronic kidney disease with heart failure and stage 1 through stage 4 chronic kidney disease, or unspecified chronic kidney disease (principal); I50.43 Acute on chronic combined systolic (congestive) and diastolic (congestive) heart failure; N18.4 Chronic kidney disease, stage 4 (severe); E11.22 Type 2 diabetes mellitus with diabetic chronic kidney disease; E22.2 Syndrome of inappropriate secretion of antidiuretic hormone; I24.8 Other forms of acute ischemic heart disease; E11.51 Type 2 diabetes mellitus with diabetic peripheral angiopathy without gangrene; Z89.612 Acquired absence of left leg above knee; E78.5 Hyperlipidemia, unspecified; I25.10 Atherosclerotic heart disease of native coronary artery without angina pectoris; E66.9 Obesity, unspecified; Z68.27 Body mass index [BMI] 27.0-27.9, adult; Z89.511 Acquired absence of right leg below knee; Z66 Do not resuscitate
CPT/HCPCS: 36415; 36416; 71010; 80048; 80053; 82550; 82553; 82805; 83605; 83880; 84484; 85025; 87040; 87077; 87149; 93005; 93798; 94640; 96374; A4216; G8978-GP-CK; G8979-GP-CJ; J0696; J1644; J1815; J1940; J7620

== ENCOUNTER 2017-05-22 03:46 | Observation (INO) | payer MEDICARE ==
[2017-05-22 04:53] LABS: #Eosinphils 0.3 thou/uL (0.0-0.7); #Monocytes 0.7 thou/uL (0.11-0.59); #Neutrophils 6.9 thou/uL (1.40-6.50); %Basophils 0.3 % (0.0-1.0); %Eosinophils 2.9 % (0.0-10.0); %Lymphocytes 11.1 % (21.0-51.0); %Monocytes 7.5 % (0.0-10.0); Hematocrit 25.3 % (42.0-52.0); Mean Platelet Volume 7.5 fL (7.4-10.4); Red Blood Cell (RBC) Count 2.62 mill/uL (4.70-6.10); White Blood Cell (WBC) Count 8.9 thou/uL (4.8-10.8)
[2017-05-22 05:00] LABS: PTT 36.9 SEC (22.9-36.1); Prothrombin Time 14.7 SEC (12.0-14.7)
[2017-05-22 05:12] LABS: ALT (SGPT) 34 U/L (8-55); AST (SGOT) 24 U/L (5-34); Alkaline Phosphatase 46 U/L (40-150); Anion Gap 14 mmol/L (10-20); BUN (Urea Nitrogen) 54 mg/dL (8.4-25.7); Bilirubin, Total 0.5 mg/dL (0.2-1.2); CK (CPK) 114 U/L (30-200); Calc. Creatinine Clearance 0 mL/min (70-130); Calcium 9.4 mg/dL (7.8-10.44); Carbon Dioxide 23 mmol/L (23-31); Chloride 97 mmol/L (98-107); Estimated GFR-MDRD 24; Lipase 29 U/L (8-78); Protein, Total 6.7 g/dL (5.8-8.1)
[2017-05-22 05:17] LABS: Troponin I 0.032 ng/mL (< 0.028)
[2017-05-22] MEDS ORDERED: Nitroglycerin 2% Ointment 1 INCH/1 GM Packet ONE (05:35)
[2017-05-22] MEDS ORDERED: Enoxaparin Sodium 100 MG/ML SYRINGE ONE (05:35)
[2017-05-22] MEDS ORDERED: Dextrose 5% in Water 1,000 ML IV PRN ×2 (07:01→12:47)
[2017-05-22] MEDS ORDERED: Dextrose 50% Abboject 50 ML SYRINGE IVP PRN (07:01)
[2017-05-22] MEDS ORDERED: Insulin Regular 300 UNITS/3 ML VIAL SC PRN ×2 (07:01)
[2017-05-22 07:02] VITALS: BMI 26.5
[2017-05-22] MEDS ORDERED: Acetaminophen 325 MG TAB PO PRN (07:02)
[2017-05-22] MEDS ORDERED: Ondansetron ODT 4 MG TAB PO PRN (07:03)
[2017-05-22] MEDS ORDERED: Ondansetron HCl/PF 4 MG/2 ML Vial IVP PRN (07:03)
[2017-05-22 08:08] LABS: Troponin I 0.045 ng/mL (< 0.028)
--- NOTE | 2017-05-22 08:33 | ULT ---
PRELIMINARY REPORT/[facility]/EMERGENCY AFTER HOURS PROCEDURE: EXAM: US Duplex Right Lower Extremity Veins EXAM DATE/TIME: Exam ordered 05/22/2017 5:44 AM CLINICAL HISTORY: 77 years old, male; Pain; Other: Rt hip TECHNIQUE: Real-time ultrasound scan of the veins of the right lower extremity with color Doppler flow, spectral waveform analysis and compression. COMPARISON: No relevant prior studies available. FINDINGS: Deep veins: Normal. No DVT in the visualized common femoral, femoral, proximal deep femoral or poplit eal veins. The veins demonstrate normal color flow, are normally compressible, with normal phasic jasmine w and/or augmentation response. Superficial veins: Normal. No thrombus in the visualized great saphenous vein. Soft tissues: No acute findings. No popliteal cyst. Post below knee amputation. IMPRESSION: Normal right lower extremity duplex venous ultrasound. Thank you for allowing us to participate in the care of your patient. Dictated and Authenticated by: Kev Hood MD 05/22/2017 6:23 AM Central Time ([place] & [place]) FINAL REPORT EMERGENCY AFTER HOURS RIGHT LOWER EXTREMITY VENOUS DUPLEX ULTRASOUND INCLUDING COLOR AND SPECTRAL DOP PLER IMAGING: Date: 05/22/17 Time: 0548 hours FINDINGS/IMPRESSION: No evidence for right lower extremity deep venous thrombosis. Exam performed from groin to ankle incl uding visualized greater saphenous, common femoral, superficial femoral, profunda femoral, popliteal, trifurcation, and posterior tibial vein regions. Report in agreement with preliminary report given on-call by Ryan. POS: [facility]
--- NOTE | 2017-05-22 10:00 | RAD ---
AP VIEW OF CHEST: Date: 05/22/17 COMPARISON: 05/18/17. FINDINGS: AP view of chest demonstrates sternotomy wires seen. Some of the sternotomy wires are fractured. Cardiomegaly is seen. Mild pulmonary vascular congestion is seen. No evidence of effusions or pneumon ia seen. Radiographic appearance of the chest is stable. IMPRESSION: Stable AP view of chest. Cardiomegaly is noted. POS: [facility]
--- NOTE | 2017-05-22 10:19 | HP ---
PRIMARY CARE PHYSICIAN: Iron Joseph M.D. CHIEF COMPLAINT: Chest pain. HISTORY OF PRESENT ILLNESS: Mr. Mancera is a pleasant 77-year-old gentleman who was seen at [facility] on 05/22/2017. Please note that Mr. Mancera is currently very sleepy, unable to provide much history. History was obtained partly from the patient, review of medical records and discussion with the emergency room ph ysician. He was hospitalized at this facility from 05/18/2017 to 05/21/2017 and was discharged yesterday to [facility]. He reportedly had sharp right-sided chest pain at the [facility]. The katelyn n lasted about 4 hours. It was radiating to the right shoulder. Currently, patient tells me that he has not had any pain in several hours. He also reports that at the [facility], he had pain all ov er his body. He denies any fevers or chills. He denies any nausea or vomiting. He denies any short ness of breath. He is unable to describe the pain he experienced prior to arrival at the emergency r oom. REVIEW OF SYSTEMS: The following complete review of systems was negative, unless otherwise mentioned in the HPI or below: Constitutional: Weight loss or gain, sense of well-being, ability to conduct usual activities, exerc ise tolerance. Skin/Breast: Rash, itching, changes in hair growth or loss, nail changes, breast lumps, tenderness, swelling, nipple discharge. Eyes: Vision, double vision, tearing, blind spots, pain. ENT/Mouth: Headaches (location, time of onset, duration, precipitating factors), vertigo, lightheade dness, injury. Vision, double vision, tearing, blind spots, pain, nose bleeding, colds, obstruction, discharge, dental difficulties, gingival bleeding, dentures, neck stiffness, pain, tenderness, masses in thyroid or other areas. Cardiovascular: Precordial pain, substernal distress, palpitations, syncope, dyspnea on exertion, or thopnea, nocturnal paroxysmal dyspnea, edema, cyanosis, hypertension, heart murmurs, varicosities, ph lebitis, claudication. Respiratory: Pain, shortness of breath, wheezing, stridor, cough, hemoptysis, fever or night sweats Gastrointestinal: Poor appetite, dysphagia, indigestion, abdominal pain, heartburn, eructation, naus ea, vomiting, hematemesis, jaundice, constipation, or diarrhea, abnormal stools (francis-colored, tarry, bloody, greasy, foul smelling), flatulence, hemorrhoids, recent changes in bowel habits. Genitourinary: Urgency, frequency, dysuria, nocturia, hematuria, polyuria, oliguria, unusual (or mimi nge in) color of urine, stones, hesitancy, change in size of stream, dribbling, acute retention or in continence, libido, potency. Musculoskeletal: Pain, swelling, redness or heat of muscles or joints, limitation, of motion, muscular weakness, atrophy, cramps. Neurologic/Psychiatric: Convulsions, paralyses, tremor, incoordination, paraesthesias, difficulties with memory of speech, sensory or motor disturbances, or muscular coordination (ataxia, tremor), emot ional problems, anxiety, depression, previous psychiatric care, unusual perceptions, hallucinations. Allergy/Immunologic: Skin rash, anemia, bleeding tendency, polydipsia, polyuria, intolerance to heat or cold. PAST MEDICAL HISTORY: Significant for coronary artery disease, diabetes mellitus type 2, hypertensio n, and congestive heart failure. PAST SURGICAL HISTORY: Significant for coronary artery bypass graft, left above knee amputation, rig ht below knee amputation and left foot surgery. SOCIAL HISTORY: The patient denies tobacco use, alcohol use or recreational drug use. FAMILY HISTORY: Significant for collagen vascular disease. ALLERGIES: AMBIEN. CURRENT MEDICATIONS: As dictated on the discharge summary from 05/21/2017. CODE STATUS: I could not discuss his code status because patient is unable to hold a conversation re garding code status at this time. PHYSICAL EXAMINATION: GENERAL: On examination, Mr. Mancera is sleepy, but arousable, not in acute distress. VITAL SIGNS: Blood pressure is 139/66, pulse is 69, he is breathing at rate of 19 and saturating 94% on 2 liters of oxygen. He is afebrile. HEENT: No scleral icterus. No conjunctival pallor. ENT: Moist mucosal membranes, no oropharyngeal erythema or exudates. NECK: Supple and nontender, normal range of movement. Trachea is midline. RESPIRATORY: Accessory muscles of breathing are not active. Chest wall movements are symmetric bila terally. LUNGS: Clear to auscultation, without wheezes, rhonchi or crepitations. CARDIOVASCULAR: S1 and S2 are heard, regular. Peripheral pulses are palpable in the upper extremiti es. No pericardial rub, no carotid bruit. ABDOMEN: Soft, nontender, bowel sounds heard, no hepatomegaly, no splenomegaly. MUSCULOSKELETAL: Status post left above knee amputation and status post right below knee amputation, patient is able to move all 4 extremities. No reproducible chest wall tenderness. NEUROLOGIC: Cranial nerves II-XII intact. LYMPHATIC: No cervical lymphadenopathy. SKIN: No rashes or subcutaneous nodules. PSYCHIATRIC: Normal mood, normal affect, patient is oriented to person and place, not to time. IMAGING AND LABORATORY DATA: Mr. Mancera's labs and investigations were reviewed. I reviewed his e lectrocardiogram, which shows normal sinus rhythm, no ST changes to suggest an acute coronary syndrom e. I also reviewed his chest x-ray, which does not show any pulmonary infiltrates. He had ultrasoun d Doppler of the right lower extremity, which was normal. He is currently awaiting a V/Q scan. I do note that he had a low probability V/Q scan on 05/05/2017. Laboratory investigations show normal wh ite count, microcytic anemia with hemoglobin of 8.2, last known hemoglobin 8.9 on 05/19/2017, normal platelet count, INR 1.1, decreased sodium of 130, normal potassium, indeterminate troponin I of 0.045 , troponin I was indeterminate at 0.050 on 05/18/2017, normal liver profile, and normal lipase. ASSESSMENT AND PLAN: Mr. Mancera is a pleasant 77-year-old gentleman who was seen at [facility] on 05/22/2017. His problem list includes: 1. Chest pain: This has resolved. The etiology is unclear. At this point in time, patient denies that he had chest pain and reports that he had pain all over his body. He is currently awaiting a V/ Q scan as ordered by the emergency room physician. I will follow up on the V/Q scan. We will also t rend his troponins. We will monitor on telemetry for now. 2. Diabetes mellitus type 2: Start Accu-Cheks, insulin sliding scale. 3. Hypertension: Monitor vital signs, titrate antihypertensives as needed. 4. Congestive heart failure. The patient does not appear to be having congestive heart failure exac erbation at this time. 5. Chronic kidney disease: Stable, creatinine is 2.63 today, was 2.46 on 05/19/2017. 6. Hyponatremia: Chronic, mild, likely asymptomatic. LEVEL OF RISK: High. LEVEL OF COMPLEXITY: High.
[2017-05-22] MEDS ORDERED: Dextrose 50% Abboject 50 ML SYRINGE SLOW IVP PRN (12:47)
[2017-05-22] MEDS ORDERED: HumaLOG 300 UNITS/3 ML VIAL SC PRN (12:47)
--- NOTE | 2017-05-22 12:55 | RAD ---
THREE VIEWS FROM A RIGHT RIB SERIES: INDICATIONS: Rule out right-sided rib fractures. FINDINGS: There are moderately displaced right lateral second and third rib fractures. No pneumothorax is evid ent. No contusion is demonstrated. There is moderate degenerative change of the right AC joint. IMPRESSION: 1. Right lateral third and second rib fractures. The third rib fracture may reflect a more subacute to chronic rib fracture. There is evidence of some partial healing. The right second rib fracture has an acute appearance. 2. No pneumothorax demonstrated. POS: [facility]
[2017-05-22] MEDS ORDERED: Heparin 5,000 UNITS/ML VIAL SC SCH (15:00)
[2017-05-22] MEDS ORDERED: hydrALAZINE 25 MG TAB PO SCH (15:00)
[2017-05-22] MEDS ORDERED: Non-Formulary Item 1 EACH (Hydralazine Hcl [Hydralazine Hcl] 50 MG) PO SCH (15:00)
[2017-05-22 16:01] VITALS: BP 139/67; TEMP 97.5
--- NOTE | 2017-05-22 16:10 | NM ---
VQ SCAN: Date: 05/22/17 HISTORY: Right lower extremity pain. Negative right lower extremity venous Doppler ultrasound. Chest pain. TECHNIQUE: A ventilation perfusion scan was performed using 17 mCi Xenon-123 by inhalation for the ventilation s tudy followed by the intravenous administration of 6.4 mCi technetium-99m MAA for the perfusion scan. FINDINGS: No pleural based, wedge shaped, mismatched, segmental or subsegmental perfusion defects are seen. No significant tracer retention is seen on the washout phase of the ventilation study. IMPRESSION: Very low probability for pulmonary embolism. POS: [facility]
[2017-05-22 16:30] LABS: Troponin I 0.038 ng/mL (< 0.028)
[2017-05-22] MEDS ORDERED: Non-Formulary Item 1 EACH (Metformin Hcl [Metformin Hcl] 1,000 MG) PO SCH (17:00)
[2017-05-22] MEDS ORDERED: metFORMIN 500 MG TAB PO SCH (17:00)
[2017-05-22] MEDS ORDERED: Atorvastatin Calcium 40 MG TAB PO SCH (21:00)
[2017-05-22] MEDS ORDERED: Furosemide 40 MG TAB PO SCH (21:00)
[2017-05-22] MEDS ORDERED: Carvedilol 25 MG TAB PO SCH (21:00)
--- NOTE | 2017-05-22 23:47 | DIS ---
DATE OF ADMISSION: 05/22/2017 DATE OF DISCHARGE: 05/22/2017 PRIMARY CARE PHYSICIAN: Iron Joseph M.D. DISCHARGE DIAGNOSIS: Chest pain. X-rays of the right-sided rib showing right lateral third and second rib fractures, third rib fractur e may be more subacute to chronic and the right second fracture had an acute appearance. There was n o pneumothorax. HOSPITAL COURSE: Mr. Mancera is a pleasant 77-year-old gentleman, who was admitted to [facility] on observation status on 05/22/2017 for right-sided chest pain. He had a VQ sca n, which was low probability for pulmonary embolism. He also had x-rays of the rib series, with find ings as detailed above. He is advised to have incentive spirometry and to have his oxygen saturation checked 3 times a day. If he develops shortness of breath, or becomes hypoxic, or develops new type of chest pain, he may need a chest x-ray to rule out pneumothorax. DISCHARGE MEDICATIONS: No change was made to his preadmission home medications. Many thanks for allowing me to participate in your patient's care. Please feel free to contact me wi th any questions or concerns. DISCHARGE DESTINATION: [facility].
[2017-05-23] MEDS ORDERED: glipiZIDE 5 MG TAB PO SCH (07:30)
[2017-05-23] MEDS ORDERED: Docusate 100 MG CAP PO SCH (09:00)
[2017-05-23] MEDS ORDERED: Aspirin 81 mg Enteric Coated Tablet PO SCH (09:00)
[2017-05-23] MEDS ORDERED: Amlodipine 5 MG TAB PO SCH (09:00)
[2017-05-23] MEDS ORDERED: Non-Formulary Item 1 EACH (Atorvastatin Calcium [Atorvastatin Calcium] 80 MG) PO SCH (09:00)
[2017-05-23] MEDS ORDERED: Alogliptin 6.25 MG TAB PO SCH (09:00)
--- NOTE | 2017-06-07 14:25 | EKG ---
Test Reason : RIB PAIN Blood Pressure : / mmHG Vent. Rate : 067 BPM Atrial Rate : 067 BPM P-R Int : 162 ms QRS Dur : 106 ms QT Int : 418 ms P-R-T Axes : 022 013 -23 degrees QTc Int : 441 ms Normal sinus rhythm Normal ECG Baseline Artifact Present Confirmed by LILI WARREN DO ([id number]), subeditor ANNE ANDERSON ([id number]) on 06/07/2017 2:25:31 PM Referred By: Confirmed By:LILI WARREN DO
== END 2017-05-22 18:16 ==
LOC: ERS 03:46 → 2NO 06:32
PROVIDERS: ADMIT Internal Medicine; ATTEND Internal Medicine
DX: R07.9 Chest pain, unspecified (principal); I25.10 Atherosclerotic heart disease of native coronary artery without angina pectoris; E11.22 Type 2 diabetes mellitus with diabetic chronic kidney disease; I13.0 Hypertensive heart and chronic kidney disease with heart failure and stage 1 through stage 4 chronic kidney disease, or unspecified chronic kidney disease; N18.9 Chronic kidney disease, unspecified; I50.9 Heart failure, unspecified; E87.1 Hypo-osmolality and hyponatremia; Z79.82 Long term (current) use of aspirin; Z79.4 Long term (current) use of insulin; Z79.899 Other long term (current) drug therapy; Z88.8 Allergy status to other drugs, medicaments and biological substances; Z95.1 Presence of aortocoronary bypass graft; Z89.612 Acquired absence of left leg above knee; Z89.511 Acquired absence of right leg below knee; Z98.890 Other specified postprocedural states; Z87.891 Personal history of nicotine dependence
CPT/HCPCS: 71010; 71100; 78582; 80053; 82550; 82553; 82962; 83690; 84484 ×2; 85025; 85610; 85730; 93005; 93971; 96372; 99285; A9540; A9558; G0378; 36415; 36416; J1644; J1650

== ENCOUNTER 2017-05-26 16:09 | Observation (INO) | payer MEDICARE ==
[2017-05-26 17:10] LABS: #Eosinphils 0.2 thou/uL (0.0-0.7); #Lymphocytes 0.8 thou/uL (1.20-3.40); #Monocytes 0.9 thou/uL (0.11-0.59); #Neutrophils 8.9 thou/uL (1.40-6.50); %Basophils 0.3 % (0.0-1.0); %Eosinophils 1.8 % (0.0-10.0); %Lymphocytes 7.6 % (21.0-51.0); %Monocytes 8.5 % (0.0-10.0); Hematocrit 26.6 % (42.0-52.0); Mean Platelet Volume 7.1 fL (7.4-10.4); Red Blood Cell (RBC) Count 2.78 mill/uL (4.70-6.10); White Blood Cell (WBC) Count 10.9 thou/uL (4.8-10.8)
[2017-05-26 17:15] LABS: PTT 33.6 SEC (22.9-36.1); Prothrombin Time 14.5 SEC (12.0-14.7)
--- NOTE | 2017-05-26 17:16 | CT ---
CT OF THE BRAIN WITHOUT CONTRAST: Date: 05/26/17 COMPARISON: 03/23/17. HISTORY: Stroke-like symptoms. Patient has low blood sugar. TECHNIQUE: Multiple contiguous axial images were obtained in a CT of the brain without contrast. FINDINGS: There are scattered hypodensities in the subcortical and periventricular white matter, likely seconda ry to small vessel ischemic disease. No large confluent infarction is seen. There is no evidence of h ydrocephalus, intracranial hemorrhage, or extra-axial fluid collection. The calvarium and overlying soft tissues are unremarkable. The visualized paranasal sinuses and masto id air cells are well aerated. IMPRESSION: No evidence of acute intracranial abnormality. POS: [facility]
[2017-05-26 17:25] LABS: Lactic Acid - Sepsis 2.2 mmol/L (0.5-2.2)
[2017-05-26 17:29] LABS: ALT (SGPT) 35 U/L (8-55); AST (SGOT) 28 U/L (5-34); Alkaline Phosphatase 51 U/L (40-150); Anion Gap 16 mmol/L (10-20); BUN (Urea Nitrogen) 58 mg/dL (8.4-25.7); Bilirubin, Total 0.5 mg/dL (0.2-1.2); CK (CPK) 75 U/L (30-200); Calc. Creatinine Clearance 0 mL/min (70-130); Carbon Dioxide 27 mmol/L (23-31); Chloride 96 mmol/L (98-107); Estimated GFR-MDRD 20; Globulin 3.3 g/dL (2.4-3.5); Magnesium 1.7 mg/dL (1.6-2.6); Protein, Total 7.2 g/dL (5.8-8.1)
[2017-05-26] MEDS ORDERED: Dextrose 50% Abboject 50 ML SYRINGE ONE (17:30)
[2017-05-26 17:35] LABS: Troponin I 0.031 ng/mL (< 0.028)
--- NOTE | 2017-05-26 18:42 | RAD ---
AP CHEST: History: Altered mental status. Possible stroke. Date: 05-26-17 Comparison: 05-22-17 FINDINGS: Cardiomegaly. Sternotomy wires are seen. Calcification of the aorta is noted. The lungs are well aera jessica. No evidence of active intrathoracic disease seen. There is a fracture seen in the right third ri b. IMPRESSION: 1. Cardiomegaly. 2. No evidence of acute intrathoracic abnormality is seen. 3. Fractured right third rib, indeterminate age. No evidence of hemo or pneumothorax is seen. POS: [facility]
--- NOTE | 2017-05-26 20:49 | PDOC.EVN ---
Event Note - Event Note Event Note: [id number] H&P Dictated 1. Hypoglycemia 2. Altered mental status 3. JUAN + CKD 4. HTN 5. H/O CAD 6. H/O PVD plan: see orders
[2017-05-26] MEDS ORDERED: Ondansetron HCl/PF 4 MG/2 ML Vial IVP PRN (21:00)
[2017-05-26] MEDS ORDERED: Acetaminophen 325 MG TAB PO PRN (21:00)
[2017-05-26] MEDS ORDERED: hydrALAZINE 20 MG/ML VIAL SLOW IVP PRN (21:03)
[2017-05-26 21:14] LABS: Troponin I 0.029 ng/mL (< 0.028)
[2017-05-26] MEDS ORDERED: Dextrose 5 % And 0.9 % NaCl 1,000 ML IV SCH (21:15)
[2017-05-26 23:57] LABS: Troponin I 0.028 ng/mL (< 0.028)
[2017-05-27] MEDS: Heparin 5,000 UNITS/ML VIAL SC SCH ×2 (00:16→09:33)
--- NOTE | 2017-05-27 06:02 | HP ---
DATE OF ADMISSION: 05/26/2017 CHIEF COMPLAINT: Altered lethargy, altered mental status. HISTORY OF PRESENT ILLNESS: Patient is a 77-year-old male with past medical history of hypertension, hyperlipidemia, coronary artery disease, diabetes type 2, peripheral vascular disease, chronic kidney disease with a baseline creatinine around 2.4-2.6, now came to the ER complaining of altered mental status. The patient lives in a [facility]. The patient's family member went to see the patient and patient was found to be confused and lethargic, so EMS was called. Initially patient's blood sugar was around 40s, but blood sugar currently improved. Patient complains of fatigue, so he did not eat his lunch today also. Denies any nausea, denies any vomiting, denies any chest pain, denies any trouble breathing, denies any dizziness. PAST MEDICAL HISTORY: As per HPI. PAST SURGICAL HISTORY: Left AKA, right BKA. SOCIAL HISTORY: Denies smoking, denies alcohol, denies any drugs. FAMILY HISTORY: Positive for heart problems. MEDICATIONS: Reviewed. REVIEW OF SYSTEMS: Constitutional: Denies any fever, denies any chills. Eyes : Denies any vision problems. Ears: Denies any hearing loss. Neck: Denies any neck pain. Cardiovascular system: Denies any chest pain. Denies any palpations. Respiratory system: Denies any cough. Denies any sputum production. Gastrointestinal: Denies any nausea, vomiting. Musculoskeletal: Positive for BKA and AKA. Cranial nerve system: Positive for altered mental status. Psychiatric: Denies depression, anxiety. All other review of systems are reviewed and are negative. PHYSICAL EXAMINATION: CONSTITUTIONAL/VITAL SIGNS: At the time of H&P performed, blood pressure 133/58 , pulse ox 97%, heart rate 86. GENERAL: The patient appears comfortable. HEENT: Pupils equal, round, and reactive to light. Anterior nares patent. Nose normal. Teeth intact. Tongue is moist. NECK: Supple, no JVD. CARDIOVASCULAR: S1, S2 present. Regular rate and rhythm. RESPIRATORY SYSTEM: No wheezing. No rhonchi. Breath sounds present bilaterally. GASTROINTESTINAL: Abdomen is soft, nontender, no guarding, no organomegaly. MUSCULOSKELETAL: Positive for right BKA and left AKA. CRANIAL NERVE SYSTEM: Awake, follows commands. Speech clear. PSYCHIATRIC: Mood appropriate at this time. : No suprapubic or inguinal tenderness LABORATORY DATA: At the time of H&P performed, sodium is 135, potassium 3.8, chloride 96, CO2 of 27, BUN of 58, creatinine 3, glucose is 113, calcium 10, CK- MB 1.8, troponin 0.031. PT 14.1, INR 1.1. White count 10.9, hemoglobin 8.9, platelet count is 276. ASSESSMENT AND PLAN: This patient is 77-year-old male, 1. Acute kidney injury on chronic kidney disease, monitor creatinine closely and increase p.o. intake, hold diuretics, and we will monitor the patient closely. Repeat BMP in a.m. 2. Hypoglycemia, improved. Monitor blood sugars. Discontinue metformin, monitor blood sugars closely. 3. History of hypertension, monitor blood pressures, continue home blood pressure treatments. 4. History of hyperlipidemia. Continue home medications. 5. History of coronary artery disease. Continue aspirin. 6. Altered mental status probably secondary to hypoglycemia. CT head is negative for any acute disease. We then monitored the patient closely. 7. Abnormal cardiac enzymes appear chronic elevation in troponin. We will monitor troponin closely. If troponin elevates, we will consult Cardiology at that time. Case was discussed in detail with the patient. Patient is FULL CODE. MTDD
[2017-05-27 06:28] LABS: #Eosinphils 0.3 thou/uL (0.0-0.7); #Lymphocytes 1.4 thou/uL (1.20-3.40); %Basophils 0.4 % (0.0-1.0); %Eosinophils 3.1 % (0.0-10.0); %Lymphocytes 15.7 % (21.0-51.0); %Monocytes 11.2 % (0.0-10.0); Hematocrit 25.5 % (42.0-52.0); Mean Platelet Volume 7.6 fL (7.4-10.4); Red Blood Cell (RBC) Count 2.65 mill/uL (4.70-6.10); White Blood Cell (WBC) Count 8.6 thou/uL (4.8-10.8)
[2017-05-27 06:50] LABS: Anion Gap 15 mmol/L (10-20); BUN (Urea Nitrogen) 57 mg/dL (8.4-25.7); Calc. Creatinine Clearance 28 mL/min (70-130); Calcium 9.6 mg/dL (7.8-10.44); Carbon Dioxide 24 mmol/L (23-31); Chloride 98 mmol/L (98-107); Estimated GFR-MDRD 23
--- NOTE | 2017-05-27 10:20 | PDOC.PN ---
- Subjective Encounter Start Date: 05/27/17 Encounter Start Time: 07:20 -: old records requested/rev Patient seen and examined. No new complaints. No overnight events - Objective MAR Reviewed: Yes Vital Signs & Weight: Vital Signs (12 hours) Temp Pulse Resp BP BP Pulse Ox 05/27/17 08:10 98.3 F 71 20 163/71 H 95 05/27/17 08:00 95 05/27/17 04:05 98.1 F 72 20 152/67 H 95 05/27/17 03:42 67 18 96 05/26/17 23:36 97.2 F L 73 18 150/67 H 98 05/26/17 22:57 73 18 98 05/26/17 22:56 97.2 F L 73 18 150/67 H 98 05/26/17 22:23 97.2 F L 73 18 150/67 H 98 Weight Admit Weight 198 lb 6.4 oz Weight 198 lb 6.4 oz I&O: 05/26/17 05/27/17 05/28/17 06:59 06:59 06:59 Intake Total 540 Output Total 600 Balance -60 Result Diagrams: 05/27/17 05:34 05/27/17 05:34 Additional Labs: Accuchecks 05/27/17 05/27/17 05/27/17 08:28 05:55 01:06 POC Glucose 80 117 H 186 H 05/26/17 21:35 POC Glucose 148 H EKG Reviewed by me: Yes Phys Exam - Physical Examination Constitutional: NAD HEENT: PERRLA, moist MMs, sclera anicteric Neck: no JVD, supple Respiratory: no wheezing, no rales, no rhonchi Cardiovascular: RRR, no significant murmur, no rub Gastrointestinal: soft, non-tender, 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, positive bowel sounds right AKA, left BKA Neurological: non-focal, normal sensation Lymphatic: no nodes Psychiatric: normal affect Skin: no rash, normal turgor Dx/Plan (1) Hypoglycemia Code(s): E16.2 - HYPOGLYCEMIA, UNSPECIFIED Status: Acute Comment: due to poor po intake (2) Anemia, normocytic normochromic Code(s): D64.9 - ANEMIA, UNSPECIFIED Status: Chronic (3) CAD (coronary artery disease) Code(s): I25.10 - ATHSCL HEART DISEASE OF [place] CORONARY ARTERY W/O ANG PCTRS Status: Chronic (4) CKD (chronic kidney disease) stage 4, GFR 15-29 ml/min Code(s): N18.4 - CHRONIC KIDNEY DISEASE, STAGE 4 (SEVERE) Status: Chronic (5) Chronic combined systolic and diastolic CHF (congestive heart failure) Code(s): I50.42 - CHRONIC COMBINED SYSTOLIC AND DIASTOLIC HRT FAIL Status: Chronic (6) HLD (hyperlipidemia) Code(s): E78.5 - HYPERLIPIDEMIA, UNSPECIFIED Status: Chronic (7) HTN (hypertension) Code(s): I10 - ESSENTIAL (PRIMARY) HYPERTENSION Status: Chronic Qualifiers: (8) PVD (peripheral vascular disease) Code(s): I73.9 - PERIPHERAL VASCULAR DISEASE, UNSPECIFIED Status: Chronic - Plan cont current plan of care * will dc metformin and glipizide * medication reviewed as below * symptomatic treatment * possible discharge later today if blood sugar stable. Review of Systems - Review of Systems ENT: negative: Ear Pain, Ear Discharge, Nose Pain, Nose Discharge, Nose Congestion, Mouth Pain, Mouth Swelling, Throat Pain, Throat Swelling, Other Respiratory: negative: Cough, Dry, Shortness of Breath, Hemoptysis, SOB with Excertion, Pleuritic Pain, Sputum, Wheezing Cardiovascular: negative: Chest Pain, Palpitations, Orthopnea, Paroxysmal Noc. Dyspnea, Edema, Light Headedness, Other Gastrointestinal: negative: Nausea, Vomiting, Abdominal Pain, Diarrhea, Constipation, Melena, Hematochezia, Other Genitourinary: negative: Dysuria, Frequency, Incontinence, Hematuria, Retention , Other Musculoskeletal: negative: Neck Pain, Shoulder Pain, Arm Pain, Back Pain, Hand Pain, Leg Pain, Foot Pain, Other Skin: negative: Rash, Lesions, Burton, Bruising, Other - Medications/Allergies Allergies/Adverse Reactions: Allergies Allergy/AdvReac Type Severity Reaction Status Date / Time zolpidem [From Ambien] AdvReac Verified 05/22/17 07:23 Medications: Current Medications Acetaminophen (Tylenol) 650 mg PO Q4H PRN PRN Reason: Headache/Fever or Pain Albuterol/Ipratropium (Duoneb) 3 ml IPPB [id number] RENA Last Admin: 05/27/17 10:09 Dose: Not Given Heparin Sodium (Porcine) (Heparin) 5,000 units SC TID [facility] Last Admin: 05/27/17 09:33 Dose: 5,000 units Hydralazine HCl (Apresoline) 5 mg SLOW IVP Q4H PRN PRN Reason: SBP Greater Than 170 Dextrose/Sodium Chloride (D5 0.9% Ns) 1,000 mls @ 30 mls/hr IV .Q24H [facility] Last Admin: 05/27/17 00:21 Dose: 1,000 mls Ondansetron HCl (Zofran) 4 mg IVP Q6H PRN PRN Reason: Nausea/Vomiting
[2017-05-27 12:15] VITALS: BP 169/72
[2017-05-27 12:17] VITALS: TEMP 97.5
--- NOTE | 2017-05-27 13:01 | DIS ---
PRIMARY CARE PHYSICIAN: Dr. Iron Joseph. DATE OF ADMISSION: 05/26/2017 DATE OF DISCHARGE: 05/27/2017 DISCHARGE DISPOSITION: custodial facility. PRIMARY DISCHARGE DIAGNOSIS: Hypoglycemia due to poor p.o. intake. SECONDARY DISCHARGE DIAGNOSES: Anemia; normocytic normochromic, coronary artery disease, chronic com bined systolic and diastolic heart failure, chronic kidney disease stage 4, hypertension, dyslipidemi a, and peripheral vascular disease. PRIMARY PROCEDURE/OPERATION: None. RADIOLOGICAL INVESTIGATION: Chest x-ray was normal. CT brain negative for any acute intracranial pr ocess. SIGNIFICANT LABORATORY DATA: WBC 8.6, hemoglobin 8.4, platelet 278. INR 1.1. Sodium 133, BUN 57, c reatinine 2.74, calcium 9.6, and troponin 0.028. DISCHARGE MEDICATIONS: Amlodipine 5 mg p.o. daily, aspirin 81 mg p.o. daily, Lipitor 80 mg p.o. campbell y, Coreg 25 mg p.o. b.i.d., Colace 100 mg p.o. daily, Lasix 40 mg p.o. b.i.d., hydralazine 50 mg p.o. t.i.d., DuoNeb q.6 hourly p.r.n., and Imdur 60 mg p.o. daily. CONTRAINDICATION: The patient is not given any YEYO inhibitor and ARB in view of chronic systolic hea rt failure because of renal failure and contraindicated. INPATIENT CONSULTANTS: None. ALLERGIES: AMBIEN. DISCHARGE PLAN: Post hospital, the patient is discharged to alf facility. We only recom mended to give him insulin as per sliding scale. HOSPITAL COURSE: A 77-year-old male who had recurrent admission in our hospital lately. He has alesia l insufficiency and he was on glipizide, metformin, Januvia, and he also had less supper and that is why his blood sugar dropped and he was brought to the emergency room for altered mental status. Afte r giving D50, his altered mental status resolved. He was given slow DNS in our hospital, but that wa s also discontinued. At this point, we are discontinuing glipizide, metformin, and Januvia, and at t he care home, only he will need insulin as per moderate sliding scale. Dietary instruction given. Hypoglycemia precautions discussed with the patient. We also found information that this patient is noncompliant with diet and treatment at care home a s well. At this point, the patient is seen and examined at bedside today. The patient is under obse rvation status. The patient is currently alert and oriented and he is able to eat and that is why we are expecting that his hypoglycemia should get better in next few hours. Overall, the patient is me dically stable for discharge today. Please see my progress note from today for further details.
== END 2017-05-27 14:06 ==
LOC: ERS 16:09 → 2NO 20:23
PROVIDERS: ADMIT Internal Medicine; ATTEND Internal Medicine
DX: E11.649 Type 2 diabetes mellitus with hypoglycemia without coma (principal); D64.9 Anemia, unspecified; I25.10 Atherosclerotic heart disease of native coronary artery without angina pectoris; E11.22 Type 2 diabetes mellitus with diabetic chronic kidney disease; I13.0 Hypertensive heart and chronic kidney disease with heart failure and stage 1 through stage 4 chronic kidney disease, or unspecified chronic kidney disease; N18.4 Chronic kidney disease, stage 4 (severe); I50.42 Chronic combined systolic (congestive) and diastolic (congestive) heart failure; E78.5 Hyperlipidemia, unspecified; E11.51 Type 2 diabetes mellitus with diabetic peripheral angiopathy without gangrene; Z91.11 Patient's noncompliance with dietary regimen; Z91.14 Patient's other noncompliance with medication regimen; Z79.82 Long term (current) use of aspirin; Z79.899 Other long term (current) drug therapy; Z88.8 Allergy status to other drugs, medicaments and biological substances; Z89.512 Acquired absence of left leg below knee; Z89.511 Acquired absence of right leg below knee; Z87.891 Personal history of nicotine dependence
CPT/HCPCS: 70450; 71010; 80048; 80053; 82550; 82553; 82947; 82962 ×2; 83605; 83735; 84484 ×2; 85025 ×2; 85610; 85730; 93005; 94640 ×2; 96374; 99285; G0378; 36415; 36416; J1644; J7620

== ENCOUNTER 2017-08-31 15:20 | Inpatient (IN) | payer MEDICARE ==
[2017-08-31 16:14] LABS: #Eosinphils 0.4 thou/uL (0.0-0.7); #Lymphocytes 1.1 thou/uL (1.20-3.40); #Monocytes 0.6 thou/uL (0.11-0.59); #Neutrophils 4.1 thou/uL (1.40-6.50); %Basophils 0.2 % (0.0-1.0); %Eosinophils 7.1 % (0.0-10.0); %Lymphocytes 17.5 % (21.0-51.0); %Monocytes 9.8 % (0.0-10.0); %Neutrophils 65.3 % (42.0-75.0); Hemoglobin 8.1 g/dL (14.0-18.0); Mean Corpuscular HGB CONC 33.3 g/dL (32.0-36.0); Mean Corpuscular Hemoglobin 29.9 pg (27.0-31.0); Mean Corpuscular Volume 89.9 fl (80.0-94.0); Mean Platelet Volume 7.3 fL (7.4-10.4); Platelet Count 210 thou/uL (130-400); RBC Distribution Width 13.2 % (11.5-14.5); Red Blood Cell (RBC) Count 2.69 mill/uL (4.70-6.10); White Blood Cell (WBC) Count 6.3 thou/uL (4.8-10.8)
[2017-08-31 16:37] LABS: ALT (SGPT) 21 U/L (8-55); AST (SGOT) 15 U/L (5-34); Albumin 3.8 g/dL (3.4-4.8); Alkaline Phosphatase 55 U/L (40-150); Anion Gap 16 mmol/L (10-20); BUN (Urea Nitrogen) 80 mg/dL (8.4-25.7); Bilirubin, Total 0.5 mg/dL (0.2-1.2); CK (CPK) 109 U/L (30-200); Calc. Creatinine Clearance 0 mL/min (70-130); Calcium 9.1 mg/dL (7.8-10.44); Carbon Dioxide 22 mmol/L (23-31); Chloride 98 mmol/L (98-107); Estimated GFR-MDRD 19; Globulin 2.8 g/dL (2.4-3.5); Glucose 175 mg/dL (83-110); Potassium 4.2 mmol/L (3.5-5.1); Protein, Total 6.6 g/dL (5.8-8.1); Sodium 132 mmol/L (136-145)
[2017-08-31 16:41] LABS: CKMB 3.3 ng/mL (0-6.6); Troponin I 0.018 ng/mL (< 0.028)
[2017-08-31] MEDS ORDERED: Furosemide 40 MG/4 ML VIAL ONE (17:54)
--- NOTE | 2017-08-31 17:55 | RAD ---
PORTABLE UPRIGHT FRONTAL CHEST RADIOGRAPH: Date: 08-31-17 Comparison: 05-26-17 History: Shortness of breath, dyspnea. FINDINGS: Midline sternotomy wires are present. There is atherosclerotic calcification in the aortic arch. Ther e is no pneumothorax noted. There is pulmonary vascular congestion with perihilar and bibasilar inter stitial prominence, slightly worsened. Hazy increased density in both lung bases noted with blunting of the costophrenic angle suggesting small bilateral pleural effusions. IMPRESSION: Findings suggesting interstitial and alveolar pulmonary edema. Infectious pneumonitis cannot be exclu ded. Follow up to resolution advised. POS: ROSA
[2017-08-31] MEDS ORDERED: Acetaminophen 500 MG TAB ONE (18:43)
[2017-08-31 20:27] LABS: Troponin I 0.027 ng/mL (< 0.028)
[2017-08-31] MEDS ORDERED: Ondansetron ODT 4 MG TAB PO PRN (21:39)
[2017-08-31] MEDS ORDERED: Dextrose 5% in Water 1,000 ML IV PRN (21:39)
[2017-08-31] MEDS ORDERED: Ondansetron HCl/PF 4 MG/2 ML Vial IVP PRN (21:39)
[2017-08-31] MEDS ORDERED: HYDROcodone/Acetaminophen 5/325 mg Tablet PO PRN (21:39)
[2017-08-31] MEDS ORDERED: Dextrose 50% Abboject 50 ML SYRINGE SLOW IVP PRN (21:39)
[2017-08-31] MEDS ORDERED: HYDROcodone/Acetaminophen 10/325 mg Tablet PO PRN (21:39)
[2017-08-31 21:47] VITALS: BMI 29.3
[2017-08-31] MEDS ORDERED: Enoxaparin Sodium 30 MG/0.3 ML SYRINGE SC SCH (22:00)
[2017-08-31] MEDS ORDERED: Famotidine 20 MG TAB PO SCH (22:00)
[2017-08-31 22:25] LABS: CKMB 3.5 ng/mL (0-6.6); Troponin I 0.018 ng/mL (< 0.028)
--- NOTE | 2017-08-31 23:32 | HP ---
DATE OF ADMISSION: 08/31/2017 TIME OF SERVICE: 1830 hours. PRIMARY CARE PHYSICIAN: Dr. Pacheco. PRIMARY TOP COLLAR MAKER: Dr. Mccray. PRIMARY VOLUNTEER SERVICES SUPERVISOR: Dr. Sainz CHIEF COMPLAINT: Shortness of breath. HISTORY OF PRESENT ILLNESS: Mr. 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 The patient last had an echocardiogram in 02/2017, did have an EF of 40% to 45%, hypokinesis of the i nferior lateral and posterior knott. He presents to the emergency department tonight with about a 1- week history of shortness of breath, worse over the last 2 days or so. He has felt very anxious with that and has had a nonproductive cough. No fevers or chills. Denies any chest pain, does have some dyspnea with activity or exertion, but denies orthopnea or PND. He has had no nausea or vomiting, n o diarrhea or constipation. When asked specifically about the edema, given that he has bilateral BKAs, he denies having any incre ased edema or difficulty with his right leg prosthesis fitting properly. In the emergency department, the labs showed a creatinine of 3.13 with a BUN of 80, which is above hi s normal baseline slightly. Blood pressure was fine. He was slightly tachypneic at 22, and was note d to be hypoxic and requiring oxygen to maintain his saturations of 90% to 95%. We were subsequently called for admit. On arrival, the patient sitting and breathing well. He denies any chest pains at the time. No other current complaints. The history is corroborated. PAST MEDICAL HISTORY: 1. Chronic systolic congestive heart failure. 2. Ischemic cardiomyopathy as above. 3. Chronic kidney disease, stage 3 to 4. 4. Hypertension. 5. Diabetes mellitus, type 2, insulin-dependent. 6. Anxiety. 7. Chronic obstructive pulmonary disease. 8. Coronary artery disease. 9. Peripheral vascular disease, status post [id number] amputation due to diabetic ulcers. PAST SURGICAL HISTORY: 1. Coronary artery bypass grafting. 2. Left BKA in 1989. 3. Right BKA in 1999. 4. Left wrist surgery. HOME MEDICATIONS: 1. Amlodipine 5 mg p.o. daily. 2. Aspirin 81 mg daily. 3. Atorvastatin 80 mg p.o. at bedtime. 4. Colace 100 mg p.o. daily. 5. Hydralazine 50 mg p.o. t.i.d. 6. Isosorbide mononitrate extended release 60 mg p.o. daily. 7. Melatonin 5 mg p.o. at bedtime. 8. Lasix 40 mg p.o. daily. 9. Robitussin as needed. 10. Coreg 25 mg p.o. b.i.d. 11. Tessalon Perles as needed. 12. Humalog sliding scale. 13. Lantus 22 units subcu q. day. 14. Gabapentin 100 mg daily. 15. DuoNebs as needed. ALLERGIES: AMBIEN. FAMILY HISTORY: Negative for clotting or bleeding disorder, no immune dysfunction. SOCIAL HISTORY: Negative for habits x3. Does have history of past tobacco, but quit around 1996. Jacek walker smoked 1-2 packs a day for 40 years or so. He is a long-term resident at [facility]. REVIEW OF SYSTEMS: A 10-point review of systems was performed, negative for all systems except as st ated as per HPI. PHYSICAL EXAMINATION: VITAL SIGNS: Temperature 97.6, pulse 61, blood pressure 150/65, respiratory rate 22, satting 92% on 4 liters nasal cannula. GENERAL: He is awake. He is alert. He is oriented x3. He is a severely obese white male, who appe ars to be in absolutely no distress. HEENT: Normocephalic and atraumatic. His pupils are equal and reactive bilaterally. Mucous membran es are moist. He has no visible lesions or thrush. NECK: Supple. He has no lymphadenopathy, no JVD, no thyromegaly. He has normal carotid upstrokes. I do not appreciate bruits. LUNGS: Clear anteriorly, however, posteriorly does have some decreased breath sounds at the bases wi th some bibasilar crackles. He has no tactile fremitus. CARDIOVASCULAR: He has a regular rhythm and a normal rate. He has a normal S1 and S2. I do not gino reciate an S3 or S4. No murmurs. ABDOMEN: Obese. It is nontender, nondistended. He has got good bowel sounds in all four quadrants. There is no rebound, rigidity or guarding. EXTREMITIES: Showed no cyanosis or clubbing. He has got bilateral BKAs. He does have a stump shrin ker present on both lower extremities. Despite that there is some trace edema. SKIN: Otherwise warm, moist and well perfused. He has no other rashes or lesions. NEUROLOGIC: Cranial nerves II-XII are grossly intact. He has 5/5 strength, there are no focal defic its. He has normal speech pattern. MUSCULOSKELETAL: Large joints appear to be uninflamed. He has no palpable effusions. He does have presacral edema. LABORATORY DATA: Sodium 132, potassium 4.2, chloride 98, bicarbonate 22. BUN 80, which is slightly elevated. Creatinine 3.3, which is slightly elevated. Glucose 175, calcium 9.1. Liver function completely within normal limits. CBC showed white count of 6.3; hemoglobin is 8.1, wh ich is down from his baseline; hematocrit of 24.2; and platelet count of 210,000. BNP is 830.8, which is similar to what it was before. His CK is normal at 109, CK-MB is 3.3, troponi n I is 0.018. Chest x-ray showed pulmonary edema with increased pulmonary vasculature and Denita B lines. This is increased from his previous chest x-ray. ASSESSMENT AND PLAN: 1. Acute on chronic systolic congestive heart failure. The patient does have a known ejection fract ion of 40% to 45%. We will start him on IV Lasix tonight and basically give him IV Lasix b.i.d. We will get strict I's and O's and daily weights. We will notify Dr. Mccray of admission. The patien t just had an echocardiogram in 03/2017, it has been 5 months and so we will not order another one no w. He has had no other symptoms. I do think that given his decreasing hemoglobin from his anemia re nal disease, the decreased oncotic pressure may be aiding in his pulmonary edema. We will wean oxyge n as tolerated. 2. Acute hypoxemic respiratory failure secondary to congestive heart failure. The patient will be p laced on oxygen and wean as tolerated. 3. Chronic kidney disease, stage 3-4. Creatinine 3.13. I have notified Dr. Sainz of admission. Over all, his renal function appears to be mostly stable, though the BUN increase certainly does worry me for prerenal azotemia. He may benefit from increased chronic agent, however, likely does need to get some erythropoietin. We will defer the decision to Dr. Sainz. 4. Hypertension, essential. Continue his home medications. 5. Diabetes mellitus, type 2, on insulins. We will place him on a diabetic diet q.i.d. a.c. and at bedtime, Accu-Cheks, and moderate dose sliding scale and continue his home medications. 6. Anxiety. 7. Chronic obstructive pulmonary disease. We will continue his DuoNebs. We will place him in observation overnight, if he responds well to diuresis and is able to wean off o xygen, may be able to return to [facility] tomorrow.
[2017-09-01 05:32] LABS: #Eosinphils 0.5 thou/uL (0.0-0.7); #Lymphocytes 1.2 thou/uL (1.20-3.40); #Monocytes 0.6 thou/uL (0.11-0.59); #Neutrophils 3.1 thou/uL (1.40-6.50); %Basophils 0.6 % (0.0-1.0); %Eosinophils 8.4 % (0.0-10.0); %Lymphocytes 22.6 % (21.0-51.0); %Monocytes 11.5 % (0.0-10.0); %Neutrophils 56.9 % (42.0-75.0); Hemoglobin 7.9 g/dL (14.0-18.0); Mean Corpuscular HGB CONC 33.4 g/dL (32.0-36.0); Mean Corpuscular Volume 89.9 fl (80.0-94.0); Mean Platelet Volume 7.5 fL (7.4-10.4); Platelet Count 206 thou/uL (130-400); RBC Distribution Width 13.1 % (11.5-14.5); Red Blood Cell (RBC) Count 2.61 mill/uL (4.70-6.10); White Blood Cell (WBC) Count 5.4 thou/uL (4.8-10.8)
[2017-09-01 05:43] LABS: Hemoglobin A1c 6.6 % (4.0-6.0)
[2017-09-01] MEDS: Furosemide 40 MG/4 ML VIAL SLOW IVP SCH ×2 (06:04→16:51)
[2017-09-01 06:05] LABS: CKMB 3.4 ng/mL (0-6.6); Troponin I 0.024 ng/mL (< 0.028)
[2017-09-01 06:08] LABS: Anion Gap 12 mmol/L (10-20); BUN (Urea Nitrogen) 85 mg/dL (8.4-25.7); Calc. Creatinine Clearance 28 mL/min (70-130); Calcium 9.5 mg/dL (7.8-10.44); Carbon Dioxide 25 mmol/L (23-31); Estimated GFR-MDRD 20; Glucose 158 mg/dL (83-110); Magnesium 2.1 mg/dL (1.6-2.6); Sodium 132 mmol/L (136-145)
[2017-09-01 06:38] LABS: Chloride 99 mmol/L (98-107)
[2017-09-01] MEDS ORDERED: Epoetin (ESRD) 20,000 UNITS/ML SC SCH (09:30)
--- NOTE | 2017-09-01 11:08 | CON ---
DATE OF CONSULTATION: 09/01/2017. HISTORY OF PRESENT ILLNESS: Mr. Mancera is a 77-year-old white male with chronic kidney disease and admitted for shortness of breath. He was diagnosed to have mild CHF. Please note in the past his EF has been 40-45%. He is currently on IV diuretics. We are now being consulted for his chronic renal failure. REVIEW OF SYSTEMS: Positive for shortness of breath, no nausea, no vomiting, no chest pain, no syncopal episode, no productive cough, no fever or chills. Appetite and energy level is fair. No headache, no diplopia, no sore throat, no abdominal pain, occasional joint pains. CURRENT MEDICATIONS: 1. Tylenol 650 mg q.4h. p.r.n. 2. DuoNeb p.r.n. 3. Famotidine 20 mg q.24h. 4. Lasix 40 mg IV q.12h. 5. Humalog sliding scale. PAST MEDICAL HISTORY: 1. Congestive heart failure. 2. Chronic renal failure. 3. Peripheral vascular disease. 4. Type 2 diabetes mellitus. 5. 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 6. Hyperlipidemia. 7. Coronary artery disease. 8. Peripheral neuropathy. 9. COPD. 10. Diverticulosis. 11. Status post gastric ulcer. PAST SURGICAL HISTORY: 1. Status post right BKA. 2. Status post left AKA. 3. Status post cardiac catheterization. 4. Status post CABG. 5. Status post left knee surgery. 6. Status post upper and lower GI endoscopy. SOCIAL HISTORY: The patient currently is in a correction. He is , 4 children with 1 step child. He smoked for 50 years, 2 packs a day. Alcohol none. No IV drug abuse. No alcohol. Retired [employer]. Status post multiple blood transfusions. Sedentary lifestyle. ALLERGIES: None. TRAUMA: Status post left knee fracture. IMMUNIZATIONS: Up to date. HOSPITALIZATIONS: Please see past medical history. FAMILY HISTORY: No family history of ESRD. PHYSICAL EXAMINATION: VITAL SIGNS: Blood pressure is 165/69, heart rate 59, respiratory rate 20, temperature 97.2, pulse ox 94%. GENERAL: Awake, alert, comfortable, not in distress. SKIN: Adequate turgor. HEENT: He has slightly pale conjunctivae, anicteric sclerae. NECK: No neck mass, no carotid bruits, no JVD. CHEST: No deformities. LUNGS: Decreased breath sounds. HEART: Normal sinus rhythm. No murmur or gallops, no rubs. ABDOMEN: Globular, soft, nontender, no masses. EXTREMITIES: No edema. Status post bilateral leg amputation. NEUROLOGIC: Awake, oriented in 3 spheres. Moving all extremities. LABORATORY: 09/01/2017 - Sodium 132, potassium 4, chloride 99, carbon dioxide 25, BUN 85, creatinine 3.04, glucose 158, hemoglobin A1c 6.6, calcium 9.5. BNP 1057. White count 8.6, hemoglobin 8.4. ASSESSMENT AND PLAN: 1. Chronic renal failure - be secondary to diabetic nephropathy/cardiorenal syndrome - relatively stable renal function. Agree with current management. Currently on IV diuretics. There is no indication for any dialytic intervention. 2. Anemia. Start ferrous sulfate and Epogen. 3. Congestive heart failure. Continuing current IV diuretic regimen. Slightly improved with current IV diuretics. Please note that chest x-ray on 08/31/2017 showed CHF. MTDD
--- NOTE | 2017-09-01 13:06 | PDOC.PN ---
- Subjective Encounter Start Date: 09/01/17 Encounter Start Time: 10:10 Pt stable overnight, nreathing a little better, but still requiring 3-4L NC to maintian sats. some urine output. Seen by Dr Ding, no changes, continue IV lasix. No F/C, no n/V/D/c, no CP, no ND or orthopnea. Cardiology to see today 10 point ROS performed and neg for all systems except as per HPI - Objective Resuscitation Status: Resuscitation Status FULL:Full Resuscitation MAR Reviewed: Yes Vital Signs & Weight: Vital Signs (12 hours) Temp Pulse Resp BP BP Pulse Ox 09/01/17 08:23 97.2 F L 59 L 20 165/69 H 94 L 09/01/17 05:03 57 L 20 97 09/01/17 04:00 97.0 F L 59 L 20 164/68 H 93 L Weight Weight 221 lb 8 oz I&O: 08/31/17 09/01/17 09/02/17 06:59 06:59 06:59 Intake Total 480 Output Total 700 Balance -220 Result Diagrams: 09/01/17 05:08 09/01/17 05:08 Additional Labs: Accuchecks 09/01/17 09/01/17 08/31/17 11:14 06:06 21:42 POC Glucose 216 H 162 H 137 H EKG Reviewed by me: Yes Phys Exam - Physical Examination Constitutional: NAD HEENT: PERRLA, moist MMs, sclera anicteric, oral pharynx no lesions Neck: no nodes, no JVD, supple, full ROM bibasilar crackles, no wheezes Cardiovascular: RRR, no rub murmurs stable Gastrointestinal: soft, non-tender, 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, positive bowel sounds Musculoskeletal: edema present bilateral BKA Neurological: non-focal, normal sensation, moves all 4 limbs Lymphatic: no nodes Psychiatric: normal affect, A&O x 3 Skin: no rash, normal turgor, cap refill <2 seconds Dx/Plan (1) Acute on chronic combined systolic (congestive) and diastolic (congestive) heart failure Code(s): I50.43 - ACUTE ON CHRONIC COMBINED SYSTOLIC AND DIASTOLIC HRT FAIL Status: Acute Comment: IV diuresis. Last echo 5 months ago, sees pro Ball his recs as to whether i need to repeat echo now or not. (2) Anemia, normocytic normochromic Code(s): D64.9 - ANEMIA, UNSPECIFIED Status: Chronic (3) CAD (coronary artery disease) Code(s): I25.10 - ATHSCL HEART DISEASE OF [place] CORONARY ARTERY W/O ANG PCTRS Status: Chronic Qualifiers: Coronary Disease-Associated Artery/Lesion type: unspecified vessel or lesion type [place] vs. transplanted heart: [place] heart Associated angina: without angina Qualified Code(s): I25.10 - Atherosclerotic heart disease of [place] coronary artery without angina pectoris (4) CKD (chronic kidney disease) stage 4, GFR 15-29 ml/min Code(s): N18.4 - CHRONIC KIDNEY DISEASE, STAGE 4 (SEVERE) Status: Chronic Comment: Cr around baseline. slightly down this morning compared to yesterday (5) Chronic combined systolic and diastolic CHF (congestive heart failure) Code(s): I50.42 - CHRONIC COMBINED SYSTOLIC AND DIASTOLIC HRT FAIL Status: Chronic (6) HLD (hyperlipidemia) Code(s): E78.5 - HYPERLIPIDEMIA, UNSPECIFIED Status: Chronic Qualifiers: Hyperlipidemia type: unspecified Qualified Code(s): E78.5 - Hyperlipidemia , unspecified (7) HTN (hypertension) Code(s): I10 - ESSENTIAL (PRIMARY) HYPERTENSION Status: Chronic Qualifiers: Hypertension type: essential hypertension (8) PVD (peripheral vascular disease) Code(s): I73.9 - PERIPHERAL VASCULAR DISEASE, UNSPECIFIED Status: Chronic - Plan cont current plan of care, PT/OT, respiratory therapy, DVT proph w/lovenox * .
[2017-09-01 14:37] LABS: CKMB 3.4 ng/mL (0-6.6); Troponin I 0.026 ng/mL (< 0.028)
[2017-09-01] MEDS: Ferrous Sulfate 325 MG TAB PO SCH ×2 (19:35→20:15)
[2017-09-01] MEDS: Famotidine 20 MG TAB PO SCH (20:46)
--- NOTE | 2017-09-02 02:35 | CON ---
DATE OF CONSULTATION: 09/01/2017 HISTORY OF PRESENT ILLNESS: Amrik Mancera is a 77-year-old white male that I initially evaluated in 07/2008 in the hospital. He has had previous bilateral fnlfg-ske-nray amputation due to peripheral vascular disease and diabetes. He had an infection of his left stump and underwent incision and drainage by Dr. Lan of a deep abscess. He continued to have abscess formation and then he underwent left ncpzp-xfk-krfv amputation. The day prior to when I initially saw him, he was complaining of sharp stabbing chest pain associated with shortness of breath, no nausea, vomiting or diaphoresis. The pain would last for 1 to 2 minutes. He underwent adenosine Cardiolite testing after he had negative cardiac enzymes. This revealed a prominent area of ischemia with some probable central infarction involving the posterolateral wall. There was mild hypokinesis of the inferoseptal region with ejection fraction of 40%. Echo also revealed left atrial and left ventricular enlargement with normal left ventricular systolic function, mitral annular calcification, moderate mitral regurgitation, mild tricuspid regurgitation. There was an ongoing infection and need for IV antibiotics since it was felt that cardiac catheterization was not indicated at that time and he was treated medically until he had completed his IV antibiotics. He then returned to the hospital on 09/06/2008 after 1 month of IV antibiotics to undergo catheterization. He had severe global left ventricular hypokinesis with ejection fraction of 25% to 30%. There was a 60% left main, 80% proximal LAD, 50% distal LAD. The circumflex had a 70% proximal stenosis. The distal circumflex was totally occluded and the obtuse marginals filled retrograde from the left. The right coronary artery had a long proximal and mid 50% stenosis and then a 99% stenosis. There was a 50% distal stenosis. There was faint retrograde filling of the distal right coronary artery from the left. He then underwent CABG x3 by Dr. Ry Wolff with FELDMAN to LAD, saphenous vein graft to diagonal, and saphenous vein graft to the distal right coronary artery. 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 Pathology eventually read this as a lipomatous hypertrophy of the atrial septum and it was felt that no further treatment was required. He had a fairly uneventful postoperative course. He had improvement in his left ventricular ejection fraction to 50% to 55% with evidence of diastolic dysfunction on an echo in 04/2013. He did well until 07/2013. Late in the evening, he began to have left-sided chest burning. It was somewhat different than the pain that he had prior to bypass surgery. This did not radiate to his left arm like his pain did. He had mild shortness of breath, no nausea, vomiting or diaphoresis. The burning pain would last 5-10 seconds and resolve. This would then recur 5 minutes later. He had multiple recurrences of this and ultimately called 911. He was given nitroglycerin in the emergency room and had no further episodes of chest discomfort. Cardiac enzymes were unremarkable. He underwent Cardiolite testing , which revealed areas of mild reversibility involving the anterior, inferior and lateral knott. Ejection fraction was 63%. He underwent cardiac catheterization. Left ventriculogram revealed moderate mid inferior wall and mild global hypokinesis with ejection fraction of 40% to 45%. There was a 60% left main. The mid LAD was totally occluded. There was a 50% distal LAD lesion. The circumflex had 70% proximal stenosis and total occlusion of the distal circumflex with distal obtuse marginals filling retrograde. The third obtuse marginal filled from the left coronary artery and the left posterior descending filled from the right coronary artery. The right coronary artery was totally occluded in its midportion. Bypass grafts revealed patent FELDMAN to the LAD. The diagonal graft was patent and the right coronary graft was aneurysmal in its distal portion, but was patent. He did well until 06/2016 when he presented with 3 weeks of increased dyspnea. He had no chest discomfort. Echo during that admission revealed mild left ventricular dysfunction with ejection fraction of 40% to 45%, left atrial enlargement, left ventricular size was normal. There was mild mitral regurgitation and evidence of diastolic dysfunction. It was felt that he had chronic systolic/diastolic heart failure along with community-acquired pneumonia and was treated with diuretics and azithromycin. In 08/2016, he returned for followup and had not been taking the Lasix 20 mg that he should have. He was also on enalapril and spironolactone 25 daily. His potassium was 5.5 and creatinine increased from 1.75 up to 2.30. Enalapril and Aldactone were discontinued. He was placed back on Lasix 20 daily. Several weeks later, his creatinine had fallen from 2.30 down to 1.96. He presented in 03/2017 with cough productive of clear sputum and increased shortness of breath. He had been placed on BiPAP in the emergency room and he was diuresed. He again was admitted in 04/2017 with chest pain and shortness of breath. It was felt that he had acute systolic and diastolic congestive heart failure exacerbation. Cardiac enzymes were unremarkable. In 04/2017, he again was admitted with increased shortness of breath. He was last seen in the office on 07/15/2017, denied any chest pain or shortness of breath. He is now admitted with increased shortness of breath. He denies any chest discomfort, cough, fever, or chills. He denies any edema, but does have stump edema on the right leg. PAST MEDICAL HISTORY: Hypertension, diabetes, hyperlipidemia, peripheral vascular disease. OPERATIONS: CABG, bilateral yvjrr-uwl-eqrm amputations and then left above-the- knee amputation, pilonidal cyst removal, and repair of broken left wrist. MEDICATIONS: Amlodipine 5 daily, aspirin 81 daily, atorvastatin 80 at bedtime, carvedilol 25 b.i.d., Colace 100 daily, furosemide 40 mg daily, gabapentin 100 mg t.i.d., hydralazine 50 t.i.d., insulin, DuoNebs, Imdur 60 mg q.a.m. and melatonin 5 mg at bedtime. ALLERGIES: AMBIEN. SOCIAL HISTORY: He smoked until 25 years ago. He does not drink alcohol. 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 He is a with 4 stepchildren. REVIEW OF SYSTEMS: A 12-point review of systems is otherwise unremarkable. PHYSICAL EXAMINATION: VITAL SIGNS: Blood pressure 161/76, pulse of 66. HEENT: PERRL. NECK: Supple. LUNGS: Chest is clear. CARDIAC: S1, S2 normal, without any S3, S4 or murmurs. ABDOMEN: Normal bowel sounds, without tenderness, organomegaly. EXTREMITIES: Revealed 1 to 2+ edema of the right stump. There was a right rqjhi-slt-luzi amputation and left mgsyz-uiv-mcme amputation. NEUROLOGIC: Grossly intact. LABORATORY DATA: EKG revealed normal sinus rhythm with low voltage QRS, nonspecific ST and T wave changes. Chest x-ray reveals increased pulmonary vascularity, possible small effusions. Hemoglobin 10.9, hematocrit 23.5, white count 5400. Sodium 132, potassium 4.0, chloride 99, carbon dioxide 25, BUN 85, creatinine 3.04. BNP 1057.2. Troponin I is normal. IMPRESSION: 1. Acute on chronic systolic and diastolic heart failure certainly exacerbated by his worsening renal insufficiency. 2. Chronic kidney disease. 3. Status post coronary artery bypass graft x3 with bypass grafts patent in 2013. 4. Ischemic cardiomyopathy with ejection fraction prior to bypass surgery of 25 % to 30%. After bypass surgery, it was 50% to 55%; however, on most recent echocardiogram, his ejection fraction has fallen to 40% to 45%. 5. Hypercholesterolemia, under good control. 6. Hypertension, poorly controlled. 7. Former smoker. 8. Peripheral vascular disease - left ihsuf-fbp-xnmj amputation and right below -the-knee amputation, diabetes. 9. History of lipomatous hypertrophy of the atrial septum at the time of bypass surgery. PLAN: Echocardiogram will be performed to reassess left ventricular function. The patient will be gently diuresed as allowable. He certainly may be approaching dialysis in the very near future. He should not be on YEYO inhibitor or ARB drug due to his renal insufficiency. MTDD
[2017-09-02 04:49] LABS: #Eosinphils 0.2 thou/uL (0.0-0.7); #Lymphocytes 0.9 thou/uL (1.20-3.40); #Monocytes 0.7 thou/uL (0.11-0.59); #Neutrophils 5.4 thou/uL (1.40-6.50); %Basophils 0.4 % (0.0-1.0); %Lymphocytes 11.9 % (21.0-51.0); %Monocytes 10.1 % (0.0-10.0); %Neutrophils 74.6 % (42.0-75.0); Hemoglobin 8.5 g/dL (14.0-18.0); Mean Corpuscular Hemoglobin 29.8 pg (27.0-31.0); Mean Corpuscular Volume 87.7 fl (80.0-94.0); Mean Platelet Volume 7.4 fL (7.4-10.4); Platelet Count 222 thou/uL (130-400); RBC Distribution Width 13.3 % (11.5-14.5); Red Blood Cell (RBC) Count 2.85 mill/uL (4.70-6.10); White Blood Cell (WBC) Count 7.2 thou/uL (4.8-10.8)
[2017-09-02 05:15] LABS: Anion Gap 15 mmol/L (10-20); BUN (Urea Nitrogen) 83 mg/dL (8.4-25.7); Calc. Creatinine Clearance 27 mL/min (70-130); Calcium 9.7 mg/dL (7.8-10.44); Carbon Dioxide 25 mmol/L (23-31); Chloride 95 mmol/L (98-107); Estimated GFR-MDRD 20; Glucose 204 mg/dL (83-110); Potassium 4.1 mmol/L (3.5-5.1); Sodium 131 mmol/L (136-145)
--- NOTE | 2017-09-02 10:07 | PRG ---
DATE OF SERVICE: 09/02/2017 RENAL MEDICINE SUBJECTIVE: Mr. Mancera is a 77-year-old white male who was seen for his chronic renal failure. He was admitted for CHF. He is currently on diuretic regimen. His breathing is much improved this mor jamie. He denies any chest pain. OBJECTIVE: VITAL SIGNS: Blood pressure is 168/79, heart rate 66, respiratory rate 24, temperature 98.5, pulse o x 98%. GENERAL: Awake, alert, comfortable, not in distress, obese. SKIN: Adequate turgor. HEENT: He has slightly pale conjunctivae, anicteric sclerae. NECK: No neck mass, no carotid bruits, no JVD. CHEST: No deformities. LUNGS: Decreased breath sounds. HEART: Normal sinus rhythm. No murmur, no gallops, no rubs. ABDOMEN: Globular, soft, nontender, no masses. EXTREMITIES: Bilateral leg amputations. LABORATORY DATA: Of 09/02/2017, white count 7.2, hemoglobin 8.5. Sodium 131, potassium 4.1, chlorid e 95, carbon dioxide 25, BUN 83, creatinine 3.02, glucose 204, calcium 9.7, magnesium 2.0. ASSESSMENT AND PLAN: 1. Chronic renal failure - stable renal function. Currently, on IV diuretics. Agree with current m anagement. No indication for any dialytic intervention. 2. Congestive heart failure. I think currently on IV Lasix. Cardiology has been consulted. Dr. Hanna burton has evaluated this patient yesterday and the plan is to at least review a cardiac echo with is patient to assess his left ventricular ejection. Hold the YEYO inhibitors or ARB for the moment. 3. Anemia - the patient is initiated on Epogen. In addition, he continues to be on ferrous sulfate. We will recheck base met and CBC in a.m.
[2017-09-02] MEDS: Ferrous Sulfate 325 MG TAB PO SCH ×2 (10:19→17:34)
--- NOTE | 2017-09-02 10:42 | PDOC.PN ---
- Subjective Encounter Start Date: 09/02/17 Encounter Start Time: 10:40 Mr. lynch was seen today in follow-up of CHF exacerbation. He says he is breathing better. He denies any chest pain. - Objective MAR Reviewed: Yes Vital Signs & Weight: Vital Signs (12 hours) Temp Pulse Resp BP Pulse Ox 09/02/17 07:34 98.5 F 66 24 H 168/79 H 98 09/02/17 04:00 99.3 F 70 24 H 146/64 H 93 L 09/01/17 23:30 64 22 H 175/75 H 93 L Weight Weight 211 lb 12.8 oz I&O: 09/01/17 09/02/17 09/03/17 06:59 06:59 06:59 Intake Total 480 Output Total 2650 100 Balance -2170 -100 Result Diagrams: 09/02/17 04:02 09/02/17 04:02 Additional Labs: Accuchecks 09/02/17 09/01/17 09/01/17 05:43 20:48 16:28 POC Glucose 211 H 231 H 210 H Phys Exam - Physical Examination HEENT: PERRLA Respiratory: no wheezing, no rhonchi + rales in the left base Cardiovascular: RRR, no significant murmur, no rub Gastrointestinal: soft, non-tender, positive bowel sounds Musculoskeletal: no edema Left AKA, and Right BKA Dx/Plan (1) Acute on chronic combined systolic (congestive) and diastolic (congestive) heart failure Code(s): I50.43 - ACUTE ON CHRONIC COMBINED SYSTOLIC AND DIASTOLIC HRT FAIL Status: Acute Comment: IV diuresis. Last echo 5 months ago, sees pro Ball his recs as to whether i need to repeat echo now or not. (2) CKD (chronic kidney disease) stage 4, GFR 15-29 ml/min Code(s): N18.4 - CHRONIC KIDNEY DISEASE, STAGE 4 (SEVERE) Status: Chronic Comment: Cr around baseline. slightly down this morning compared to yesterday (3) HTN (hypertension) Code(s): I10 - ESSENTIAL (PRIMARY) HYPERTENSION Status: Chronic Qualifiers: Hypertension type: essential hypertension (4) PVD (peripheral vascular disease) Code(s): I73.9 - PERIPHERAL VASCULAR DISEASE, UNSPECIFIED Status: Chronic (5) Diabetes mellitus type 2 in obese Code(s): E11.69 - TYPE 2 DIABETES MELLITUS WITH OTHER SPECIFIED COMPLICATION; E66.9 - OBESITY, UNSPECIFIED Status: Acute - Plan * Acute on chronic systolic heart failure- improved- he has lost over 10 pounds of fluid since admission * HTN- blood pressure is slightly elevated- will begin to re-start some of his home medications in a stepwise fashion * CKD- stage 4- stable renal function has been stable with diuresis- continue to hold YEYO-I, and ARB * DM- blood glucose is slightly high- will re-start insulin, and continue SSI * Anemia- likely from renal disease- Epogen as per Nephrology, and continue iron supplementation .
--- NOTE | 2017-09-02 16:21 | PDOC.EVN ---
Event Note - Event Note Event Note: I spoke with the patient to fy his Out of Hospital DNR. He says he would not want to be resuscitated. "If I'm dying than I'm dying." Will change his code status to DNR.
[2017-09-02] MEDS: Gabapentin 100 MG CAP PO SCH ×2 (17:34→20:17)
[2017-09-02] MEDS: Carvedilol 6.25 MG TAB PO SCH (17:34)
[2017-09-02] MEDS: Atorvastatin Calcium 40 MG TAB PO SCH (20:16)
[2017-09-02] MEDS: Famotidine 20 MG TAB PO SCH (20:17)
[2017-09-02] MEDS: Melatonin 3 MG TAB PO SCH (20:17)
[2017-09-02] MEDS ORDERED: Non-Formulary Item 1 EACH (Atorvastatin Calcium [Atorvastatin Calcium] 80 MG) PO SCH (21:00)
[2017-09-02] MEDS ORDERED: Non-Formulary Item 1 EACH (Melatonin [Melatonin] 5 MG) PO SCH (21:00)
[2017-09-02] MEDS: HumaLOG 300 UNITS/3 ML VIAL SC PRN (21:53)
[2017-09-03] MEDS ORDERED: Ziprasidone 20 MG VIAL IM PRN (08:40)
[2017-09-03] MEDS ORDERED: Sterile Water 10 ML VIAL FS PRN (08:44)
--- NOTE | 2017-09-03 08:57 | PRG ---
DATE OF SERVICE: 09/03/2017 RENAL MEDICINE SUBJECTIVE: Mr. Mancera is a 77-year-old white male seen by Renal Service for his chronic renal heike lure. In the last few days, renal function was stable. This morning, he is more combative. He is t elling me he wants to . In addition, he was also noted to be in mild respiratory distress. He wa s given DuoNeb. No other complaints, no chest pain. PHYSICAL EXAMINATION: VITAL SIGNS: Blood pressure 135/97, heart rate 58, respiratory rate 20, temperature 97.6, pulse oxim etry 96% on 4 liters. GENERAL: Patient is awake, confused and in mild respiratory distress. SKIN: Adequate turgor. HEENT: Slightly pale conjunctivae, anicteric sclerae. NECK: No neck mass, no carotid bruits, no JVD. CHEST: No deformities. LUNGS: Decreased breath sounds. Occasional wheezing. HEART: Normal sinus rhythm. No murmurs, no gallops, no rubs. ABDOMEN: Globular, soft, nontender, no masses. EXTREMITIES: Bilateral leg amputation. MEDICATIONS: Medications of 09/03/2017 reviewed. LABORATORY DATA: Laboratories of 09/02/2017; white count 7.2, hemoglobin 8.5, hematocrit 25. Sodium 131, potassium 4.1, chloride 95, carbon dioxide 25, BUN 83, creatinine 3.02. ASSESSMENT AND PLAN: 1. Chronic renal failure, relatively stable renal function. No indication for any dialytic interven tion. We will recheck basic metabolic panel tomorrow. Continue current management. 2. Chronic obstructive pulmonary disease exacerbation - DuoNeb is being given with this patient. Co ntinue supportive care. If the patient is more coherent, we will discuss palliative care/hospice wit h the patient. Overall, agree with current management. 3. Anemia, on weekly Epogen.
[2017-09-03] MEDS ORDERED: INSULIN GLARGINE HUM REC ANLOG 22 UNIT SQ SCH (09:00)
[2017-09-03] MEDS: Gabapentin 100 MG CAP PO SCH ×3 (10:35→20:34)
[2017-09-03] MEDS: Ferrous Sulfate 325 MG TAB PO SCH ×2 (10:35→16:28)
[2017-09-03] MEDS: Docusate 100 MG CAP PO SCH (10:35)
[2017-09-03] MEDS: Insulin Detemir 100 UNITS/ML 22 UNITS in Pre-Filled Syringe 1 EACH SC SCH (10:36)
[2017-09-03] MEDS: Carvedilol 6.25 MG TAB PO SCH (10:37)
[2017-09-03] MEDS: HumaLOG 300 UNITS/3 ML VIAL SC PRN (10:41)
--- NOTE | 2017-09-03 10:48 | PDOC.PN ---
- Subjective Encounter Start Date: 09/03/17 Encounter Start Time: 10:46 Mr. Mancera had an episode of confusion this morning. He was behaving threatening way to the staff. He doesn't remember the epsode, but he admits, as well as his daughter that this has happened before after taking Ambien. He is now alert and oriented to person place and time. and situation. - Objective Resuscitation Status: Resuscitation Status DNR:Do Not Resuscitate MAR Reviewed: Yes Vital Signs & Weight: Vital Signs (12 hours) Temp Pulse Resp BP Pulse Ox 09/03/17 08:00 97.9 F 59 L 18 169/70 H 95 09/03/17 04:00 97.6 F 58 L 20 135/97 H 96 Weight Weight 207 lb 9.6 oz I&O: 09/02/17 09/03/17 09/04/17 06:59 06:59 06:59 Intake Total 480 240 Output Total 2650 450 Balance -2170 -210 Result Diagrams: 09/02/17 04:02 09/02/17 04:02 Additional Labs: Accuchecks 09/02/17 09/02/17 09/02/17 21:17 16:22 11:19 POC Glucose 314 H 276 H 237 H Phys Exam - Physical Examination HEENT: PERRLA, sclera anicteric Respiratory: no wheezing, no rhonchi + rales at the bases Cardiovascular: RRR, no significant murmur, no rub Gastrointestinal: soft, non-tender, positive bowel sounds Musculoskeletal: no edema Bilateral lower extremity amputations Dx/Plan (1) Acute on chronic combined systolic (congestive) and diastolic (congestive) heart failure Code(s): I50.43 - ACUTE ON CHRONIC COMBINED SYSTOLIC AND DIASTOLIC HRT FAIL Status: Acute Comment: IV diuresis. Last echo 5 months ago, sees pro Ball his recs as to whether i need to repeat echo now or not. (2) CKD (chronic kidney disease) stage 4, GFR 15-29 ml/min Code(s): N18.4 - CHRONIC KIDNEY DISEASE, STAGE 4 (SEVERE) Status: Chronic Comment: Cr around baseline. slightly down this morning compared to yesterday (3) HTN (hypertension) Code(s): I10 - ESSENTIAL (PRIMARY) HYPERTENSION Status: Chronic Qualifiers: Hypertension type: essential hypertension (4) PVD (peripheral vascular disease) Code(s): I73.9 - PERIPHERAL VASCULAR DISEASE, UNSPECIFIED Status: Chronic (5) Diabetes mellitus type 2 in obese Code(s): E11.69 - TYPE 2 DIABETES MELLITUS WITH OTHER SPECIFIED COMPLICATION; E66.9 - OBESITY, UNSPECIFIED Status: Acute - Plan * Acute respiratory failure from combined Systolic and diastolic heart failure- improved, he has diuresed well over the past 2 days * DM- blood glucose is still at bit elevated- will continue scheduled insulin and SSI * HTN- blood pressure is slightly elevated- re-starting home medications * CKD stage 4- stable * Delerium- brief- will avoid sedation and opiate medications * Home when ok by Cardiology .
[2017-09-03 11:37] LABS: #Basophils 0.1 thou/uL (0.0-0.2); #Eosinphils 0.2 thou/uL (0.0-0.7); #Lymphocytes 1.3 thou/uL (1.20-3.40); #Monocytes 0.9 thou/uL (0.11-0.59); #Neutrophils 5.4 thou/uL (1.40-6.50); %Basophils 0.7 % (0.0-1.0); %Eosinophils 2.8 % (0.0-10.0); %Lymphocytes 16.4 % (21.0-51.0); %Monocytes 11.1 % (0.0-10.0); %Neutrophils 68.9 % (42.0-75.0); Hemoglobin 8.1 g/dL (14.0-18.0); Mean Corpuscular HGB CONC 32.9 g/dL (32.0-36.0); Mean Corpuscular Hemoglobin 28.8 pg (27.0-31.0); Mean Corpuscular Volume 87.5 fl (80.0-94.0); Mean Platelet Volume 7.3 fL (7.4-10.4); Platelet Count 216 thou/uL (130-400); RBC Distribution Width 13.3 % (11.5-14.5); Red Blood Cell (RBC) Count 2.82 mill/uL (4.70-6.10); White Blood Cell (WBC) Count 7.9 thou/uL (4.8-10.8)
[2017-09-03 12:00] LABS: Anion Gap 12 mmol/L (10-20); BUN (Urea Nitrogen) 81 mg/dL (8.4-25.7); Calc. Creatinine Clearance 27 mL/min (70-130); Calcium 9.6 mg/dL (7.8-10.44); Carbon Dioxide 26 mmol/L (23-31); Chloride 99 mmol/L (98-107); Estimated GFR-MDRD 20; Glucose 223 mg/dL (83-110); Potassium 4.1 mmol/L (3.5-5.1); Sodium 133 mmol/L (136-145)
[2017-09-03] MEDS: Famotidine 20 MG TAB PO SCH (20:34)
[2017-09-03] MEDS: Carvedilol 25 MG TAB PO SCH (20:34)
[2017-09-03] MEDS: Atorvastatin Calcium 40 MG TAB PO SCH (20:34)
[2017-09-03] MEDS: Melatonin 3 MG TAB PO SCH (20:45)
--- NOTE | 2017-09-04 07:51 | PDOC.PN ---
- Subjective Encounter Start Date: 09/04/17 Encounter Start Time: 07:50 Subjective: seen and examined no new complaint except shortness of breath - Objective Resuscitation Status: Resuscitation Status DNR:Do Not Resuscitate Vital Signs & Weight: Vital Signs (12 hours) Temp Pulse Resp BP Pulse Ox 09/04/17 04:00 98.3 F 59 L 20 160/70 H 96 Weight Weight 215 lb 1.6 oz I&O: 09/03/17 09/04/17 09/05/17 06:59 06:59 06:59 Intake Total 240 1320 Output Total 450 775 Balance -210 545 Result Diagrams: 09/03/17 11:27 09/04/17 08:01 Additional Labs: Accuchecks 09/04/17 09/03/17 09/03/17 05:57 19:57 16:39 POC Glucose 158 H 170 H 126 H 09/03/17 09/03/17 10:37 05:34 POC Glucose 251 H 129 H Phys Exam - Physical Examination Constitutional: NAD HEENT: PERRLA, moist MMs, sclera anicteric, TM's clear Neck: no nodes, no JVD, supple, full ROM Respiratory: no wheezing, no rales, no rhonchi, clear to auscultation bilateral Cardiovascular: RRR, no significant murmur, no rub Gastrointestinal: soft, non-tender, 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, positive bowel sounds Musculoskeletal: no edema, pulses present Dx/Plan (1) Acute on chronic combined systolic (congestive) and diastolic (congestive) heart failure Code(s): I50.43 - ACUTE ON CHRONIC COMBINED SYSTOLIC AND DIASTOLIC HRT FAIL Status: Acute Comment: IV diuresis. Last echo 5 months ago, sees pro Ball his recs as to whether i need to repeat echo now or not. (2) Diabetes mellitus type 2 in obese Code(s): E11.69 - TYPE 2 DIABETES MELLITUS WITH OTHER SPECIFIED COMPLICATION; E66.9 - OBESITY, UNSPECIFIED Status: Acute (3) Hypoglycemia Code(s): E16.2 - HYPOGLYCEMIA, UNSPECIFIED Status: Acute Comment: due to poor po intake (4) Anemia, normocytic normochromic Code(s): D64.9 - ANEMIA, UNSPECIFIED Status: Chronic (5) CAD (coronary artery disease) Code(s): I25.10 - ATHSCL HEART DISEASE OF [place] CORONARY ARTERY W/O ANG PCTRS Status: Chronic Qualifiers: Coronary Disease-Associated Artery/Lesion type: unspecified vessel or lesion type [place] vs. transplanted heart: [place] heart Associated angina: without angina Qualified Code(s): I25.10 - Atherosclerotic heart disease of [place] coronary artery without angina pectoris (6) CKD (chronic kidney disease) stage 4, GFR 15-29 ml/min Code(s): N18.4 - CHRONIC KIDNEY DISEASE, STAGE 4 (SEVERE) Status: Chronic Comment: Cr around baseline. slightly down this morning compared to yesterday (7) Chronic combined systolic and diastolic CHF (congestive heart failure) Code(s): I50.42 - CHRONIC COMBINED SYSTOLIC AND DIASTOLIC HRT FAIL Status: Chronic (8) HLD (hyperlipidemia) Code(s): E78.5 - HYPERLIPIDEMIA, UNSPECIFIED Status: Chronic Qualifiers: Hyperlipidemia type: unspecified Qualified Code(s): E78.5 - Hyperlipidemia , unspecified - Plan cont current plan of care, plan discussed w/ family, social service agency director, respiratory therapy Check labs today -: dispo planning -: ?continued diuresis -: IV lasix 40mg stat--patient still very short of breath * .
[2017-09-04 08:19] LABS: Albumin 3.8 g/dL (3.4-4.8); Anion Gap 14 mmol/L (10-20); BUN (Urea Nitrogen) 79 mg/dL (8.4-25.7); BUN/Creatinine Ratio 26.69; Calc. Creatinine Clearance 28 mL/min (70-130); Calcium 9.6 mg/dL (7.8-10.44); Carbon Dioxide 26 mmol/L (23-31); Chloride 100 mmol/L (98-107); Estimated GFR-MDRD 21; Glucose 136 mg/dL (83-110); Phosphorus 4.8 mg/dL (2.3-4.7); Sodium 136 mmol/L (136-145)
[2017-09-04] MEDS: Amlodipine 5 MG TAB PO SCH (08:45)
[2017-09-04] MEDS ORDERED: Furosemide 40 MG/4 ML VIAL SLOW IVP SCH (08:45)
[2017-09-04] MEDS: Aspirin 81 mg Enteric Coated Tablet PO SCH (08:45)
[2017-09-04] MEDS: Gabapentin 100 MG CAP PO SCH ×3 (08:51→21:14)
[2017-09-04] MEDS: Ferrous Sulfate 325 MG TAB PO SCH ×2 (08:51→16:06)
[2017-09-04] MEDS: Docusate 100 MG CAP PO SCH (08:51)
[2017-09-04] MEDS: Carvedilol 25 MG TAB PO SCH ×3 (08:51→21:19)
[2017-09-04] MEDS: Insulin Detemir 100 UNITS/ML 22 UNITS in Pre-Filled Syringe 1 EACH SC SCH (08:57)
--- NOTE | 2017-09-04 10:16 | PRG ---
DATE OF SERVICE: 09/04/2017 SUBJECTIVE: Mr. Mancera is a 77-year-old white male who was admitted for shortness of breath second roosevelt to CHF/COPD exacerbation. Yesterday, he was short of breath. Continued neb treatment was given for this patient. In addition, he continued to receive his diuretic regimen. His renal function is stabilizing. We do not feel there is any indication for any dialytic intervention with this patient. OBJECTIVE: GENERAL: This morning, he is feeling a little better. He is less wheezy. VITAL SIGNS: Blood pressure is 160/70 with a heart rate of 59, respiratory rate 20, temperature 98.3 , pulse ox 96%. GENERAL: Awake, alert, obese, comfortable, not in overt distress. SKIN: Adequate turgor. HEENT: Pinkish conjunctivae. Anicteric sclerae. NECK: No neck mass, no carotid bruits, no JVD. CHEST: No deformities. LUNGS: Decreased breath sounds. No wheezing. HEART: Normal sinus rhythm. No murmur, no gallops, no rubs. ABDOMEN: Globular, soft, nontender. No masses. EXTREMITIES: Bilateral leg amputations. MEDICATIONS: Medications of 09/04/2017 was reviewed. LABORATORY DATA: Laboratories of 09/03/2017, white count 7.9, hemoglobin 8.1. 09/04/2017, sodium 13 6, potassium 4, chloride 100, carbon dioxide 26, BUN 79, creatinine 2.96, glucose 136, calcium is 9.6 , phosphorus 4.8, calcium minimally elevated; albumin 3.8. ASSESSMENT AND PLAN: 1. Acute kidney injury on top of his chronic renal failure, stabilizing renal function. Creatinine is 2.96, stable. He is currently at stage IV chronic renal failure. No indication for any dialytic intervention. Continue current diuretic regimen. 2. Shortness of breath, multifactorial - chronic heart failure/chronic obstructive pulmonary disease exacerbation. Continuing neb treatment. In addition, the patient continues to be on his diuretic r egimen. 3. Anemia, on weekly Epogen and ferrous sulfate. Overall, agree with current management.
[2017-09-04] MEDS: HumaLOG 300 UNITS/3 ML VIAL SC PRN ×2 (11:48→17:49)
[2017-09-04] MEDS: Acetaminophen 325 MG TAB PO PRN (18:38)
[2017-09-04] MEDS: Melatonin 3 MG TAB PO SCH (21:13)
[2017-09-04] MEDS: Atorvastatin Calcium 40 MG TAB PO SCH (21:14)
[2017-09-04] MEDS: Famotidine 20 MG TAB PO SCH (21:16)
[2017-09-05 05:51] LABS: #Eosinphils 0.4 thou/uL (0.0-0.7); #Lymphocytes 1.3 thou/uL (1.20-3.40); #Monocytes 0.6 thou/uL (0.11-0.59); #Neutrophils 4.4 thou/uL (1.40-6.50); %Basophils 0.6 % (0.0-1.0); %Eosinophils 5.6 % (0.0-10.0); %Lymphocytes 18.8 % (21.0-51.0); %Monocytes 9.5 % (0.0-10.0); %Neutrophils 65.5 % (42.0-75.0); Hemoglobin 8.1 g/dL (14.0-18.0); Mean Corpuscular HGB CONC 32.7 g/dL (32.0-36.0); Mean Corpuscular Hemoglobin 28.9 pg (27.0-31.0); Mean Corpuscular Volume 88.5 fl (80.0-94.0); Mean Platelet Volume 7.5 fL (7.4-10.4); Platelet Count 226 thou/uL (130-400); RBC Distribution Width 13.3 % (11.5-14.5); White Blood Cell (WBC) Count 6.7 thou/uL (4.8-10.8)
[2017-09-05 06:05] LABS: Anion Gap 14 mmol/L (10-20); BUN (Urea Nitrogen) 79 mg/dL (8.4-25.7); Calc. Creatinine Clearance 28 mL/min (70-130); Calcium 9.6 mg/dL (7.8-10.44); Carbon Dioxide 26 mmol/L (23-31); Chloride 101 mmol/L (98-107); Estimated GFR-MDRD 21; Glucose 124 mg/dL (83-110); Sodium 137 mmol/L (136-145)
[2017-09-05] MEDS: Carvedilol 25 MG TAB PO SCH ×2 (08:36→21:00)
[2017-09-05] MEDS: Gabapentin 100 MG CAP PO SCH ×3 (08:36→21:00)
[2017-09-05] MEDS: Insulin Detemir 100 UNITS/ML 22 UNITS in Pre-Filled Syringe 1 EACH SC SCH (08:36)
[2017-09-05] MEDS: Ferrous Sulfate 325 MG TAB PO SCH ×2 (08:36→17:04)
[2017-09-05] MEDS: Docusate 100 MG CAP PO SCH ×2 (08:36→08:45)
[2017-09-05] MEDS: Furosemide 20 MG TAB PO SCH ×2 (08:37→14:12)
[2017-09-05] MEDS: Aspirin 81 mg Enteric Coated Tablet PO SCH (08:37)
[2017-09-05] MEDS: Amlodipine 5 MG TAB PO SCH (08:37)
[2017-09-05] MEDS: Acetaminophen 325 MG TAB PO PRN (08:41)
--- NOTE | 2017-09-05 08:59 | PDOC.PN ---
- Subjective Encounter Start Date: 09/05/17 Encounter Start Time: 08:58 Subjective: seen and examined -confused -pulled out his IV - Objective Resuscitation Status: Resuscitation Status DNR:Do Not Resuscitate Vital Signs & Weight: Vital Signs (12 hours) Temp Pulse Resp BP Pulse Ox 09/05/17 08:37 61 09/05/17 07:58 97.8 F 61 18 134/60 95 09/05/17 04:00 98.2 F 61 20 155/70 H 95 09/05/17 00:00 97.4 F L 56 L 18 163/70 H 99 Weight Weight 207 lb 14.4 oz I&O: 09/04/17 09/05/17 09/06/17 06:59 06:59 06:59 Intake Total 1320 1280 Output Total 775 600 Balance 545 680 Result Diagrams: 09/05/17 04:49 09/05/17 04:49 Additional Labs: Accuchecks 09/05/17 09/04/17 09/04/17 05:34 20:18 16:56 POC Glucose 138 H 163 H 216 H 09/04/17 10:37 POC Glucose 238 H Phys Exam - Physical Examination Constitutional: NAD HEENT: PERRLA, moist MMs, sclera anicteric, TM's clear Neck: no nodes, no JVD, supple, full ROM Respiratory: no rales, wheezing present, clear to auscultation bilateral Cardiovascular: RRR, no significant murmur, no rub Gastrointestinal: soft, non-tender, 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, positive bowel sounds Musculoskeletal: no edema, pulses present Dx/Plan (1) Acute on chronic combined systolic (congestive) and diastolic (congestive) heart failure Code(s): I50.43 - ACUTE ON CHRONIC COMBINED SYSTOLIC AND DIASTOLIC HRT FAIL Status: Acute Comment: IV diuresis. Last echo 5 months ago, sees pro Ball his recs as to whether i need to repeat echo now or not. (2) Diabetes mellitus type 2 in obese Code(s): E11.69 - TYPE 2 DIABETES MELLITUS WITH OTHER SPECIFIED COMPLICATION; E66.9 - OBESITY, UNSPECIFIED Status: Acute (3) Hypoglycemia Code(s): E16.2 - HYPOGLYCEMIA, UNSPECIFIED Status: Acute Comment: due to poor po intake (4) Anemia, normocytic normochromic Code(s): D64.9 - ANEMIA, UNSPECIFIED Status: Chronic (5) CAD (coronary artery disease) Code(s): I25.10 - ATHSCL HEART DISEASE OF [place] CORONARY ARTERY W/O ANG PCTRS Status: Chronic Qualifiers: Coronary Disease-Associated Artery/Lesion type: unspecified vessel or lesion type [place] vs. transplanted heart: [place] heart Associated angina: without angina Qualified Code(s): I25.10 - Atherosclerotic heart disease of [place] coronary artery without angina pectoris (6) CKD (chronic kidney disease) stage 4, GFR 15-29 ml/min Code(s): N18.4 - CHRONIC KIDNEY DISEASE, STAGE 4 (SEVERE) Status: Chronic Comment: Cr around baseline. slightly down this morning compared to yesterday (7) Chronic combined systolic and diastolic CHF (congestive heart failure) Code(s): I50.42 - CHRONIC COMBINED SYSTOLIC AND DIASTOLIC HRT FAIL Status: Chronic (8) HLD (hyperlipidemia) Code(s): E78.5 - HYPERLIPIDEMIA, UNSPECIFIED Status: Chronic Qualifiers: Hyperlipidemia type: unspecified Qualified Code(s): E78.5 - Hyperlipidemia , unspecified - Plan cont current plan of care, PT/OT, social services manager, respiratory therapy Prn diuresis -: Dispo planning * .
[2017-09-05] MEDS ORDERED: Furosemide 40 MG/4 ML VIAL SLOW IVP SCH (09:45)
[2017-09-05] MEDS: HumaLOG 300 UNITS/3 ML VIAL SC PRN (11:55)
[2017-09-05] MEDS: Atorvastatin Calcium 40 MG TAB PO SCH (20:59)
[2017-09-05] MEDS: Melatonin 3 MG TAB PO SCH (21:00)
[2017-09-05] MEDS: Famotidine 20 MG TAB PO SCH (21:00)
[2017-09-06] MEDS: Insulin Detemir 100 UNITS/ML 22 UNITS in Pre-Filled Syringe 1 EACH SC SCH (08:41)
[2017-09-06] MEDS: Gabapentin 100 MG CAP PO SCH (08:43)
[2017-09-06] MEDS: Furosemide 20 MG TAB PO SCH (08:43)
[2017-09-06] MEDS: Amlodipine 5 MG TAB PO SCH (08:43)
[2017-09-06] MEDS: Ferrous Sulfate 325 MG TAB PO SCH (08:44)
[2017-09-06] MEDS: Carvedilol 25 MG TAB PO SCH (08:44)
[2017-09-06] MEDS: Docusate 100 MG CAP PO SCH (08:44)
[2017-09-06] MEDS: Aspirin 81 mg Enteric Coated Tablet PO SCH (08:44)
[2017-09-06] MEDS: HumaLOG 300 UNITS/3 ML VIAL SC PRN (11:22)
--- NOTE | 2017-09-06 11:28 | PDOC.PN ---
- Subjective Encounter Start Date: 09/06/17 Encounter Start Time: 11:25 Mr. Mancera was seen today in follow-up. He says he feels great, and has no complaints. - Objective Resuscitation Status: Resuscitation Status DNR:Do Not Resuscitate MAR Reviewed: Yes Vital Signs & Weight: Vital Signs (12 hours) Temp Pulse Resp BP Pulse Ox 09/06/17 08:43 64 09/06/17 08:00 98.3 F 64 18 168/77 H 92 L 09/06/17 04:00 97.9 F 61 20 156/81 H 97 09/06/17 01:16 98 09/06/17 00:00 97.7 F 56 L 20 138/64 94 L Weight Weight 207 lb 3.2 oz I&O: 09/05/17 09/06/17 09/07/17 06:59 06:59 06:59 Intake Total 1280 1070 Output Total 600 450 Balance 680 620 Result Diagrams: 09/05/17 04:49 09/05/17 04:49 Additional Labs: Accuchecks 09/06/17 09/05/17 09/05/17 05:35 20:54 16:37 POC Glucose 127 H 146 H 150 H 09/05/17 10:40 POC Glucose 258 H Phys Exam - Physical Examination HEENT: PERRLA Respiratory: no wheezing, no rales, no rhonchi, clear to auscultation bilateral Cardiovascular: RRR, no significant murmur, no rub Gastrointestinal: soft, non-tender, positive bowel sounds Musculoskeletal: edema present Dx/Plan (1) Acute on chronic combined systolic (congestive) and diastolic (congestive) heart failure Code(s): I50.43 - ACUTE ON CHRONIC COMBINED SYSTOLIC AND DIASTOLIC HRT FAIL Status: Acute Comment: IV diuresis. Last echo 5 months ago, sees pro Ball his recs as to whether i need to repeat echo now or not. (2) CKD (chronic kidney disease) stage 4, GFR 15-29 ml/min Code(s): N18.4 - CHRONIC KIDNEY DISEASE, STAGE 4 (SEVERE) Status: Chronic Comment: Cr around baseline. slightly down this morning compared to yesterday (3) HTN (hypertension) Code(s): I10 - ESSENTIAL (PRIMARY) HYPERTENSION Status: Chronic Qualifiers: Hypertension type: essential hypertension (4) PVD (peripheral vascular disease) Code(s): I73.9 - PERIPHERAL VASCULAR DISEASE, UNSPECIFIED Status: Chronic (5) Diabetes mellitus type 2 in obese Code(s): E11.69 - TYPE 2 DIABETES MELLITUS WITH OTHER SPECIFIED COMPLICATION; E66.9 - OBESITY, UNSPECIFIED Status: Acute - Plan * Acute on chronic systolic heart failure- clinically improved * HTN- blood pressure is a bit elevated- but hydralazine was not re-started- will re-start at 25mg TID * Chronic kidney disease- stable * He can be transitioned back to the [place]
--- NOTE | 2017-09-06 11:50 | DIS ---
PRIMARY CARE PHYSICIAN: Dr. Kelly Pacheco M.D. DATE OF ADMISSION: 08/31/2017 DATE OF DISCHARGE: 09/06/2017 DISCHARGE DISPOSITION: Back to the [facility]. DISCHARGE DIAGNOSES: 1. Acute on chronic systolic heart failure. 2. Hypertension. 3. Chronic kidney disease, stage 4. 4. Diabetes mellitus, type 2. 5. Chronic obstructive pulmonary disease with chronic respiratory failure. 6. History of coronary artery disease. 7. Peripheral vascular disease, status post left [id number]-txop amputation. CODE STATUS: DNR. ALLERGIES: AMBIEN. DISCHARGE MEDICATIONS: Include, melatonin 5 mg at bedtime, Imdur 60 mg q. day, DuoNebs q.i.d. as nee ded, Levemir insulin 22 units daily, hydralazine 25 mg t.i.d., gabapentin 100 mg t.i.d., Lasix 20 mg twice a day, iron sulfate 325 mg twice daily, docusate 100 mg daily, Carvedilol 25 mg twice a day, Li pitor 80 mg at bedtime, aspirin 81 mg daily, and amlodipine 5 mg daily. PROCEDURES DONE DURING ADMISSION: The patient had an echocardiogram, in which the ejection fraction was estimated at 40% to 45%. There was moderate mitral regurgitation and there was a sclerotic aorti c valve. HOSPITAL COURSE: Mr. Mancera is a pleasant 77-year-old gentleman, who was admitted with shortness o f breath. He also had a nonproductive cough. He was found to be in acute on chronic systolic heart failure and also in acute on chronic renal failure as well. His creatinine on admission was 3.13. H e was admitted and started on IV diuresis. It was felt that the acute on chronic kidney disease due to cardiorenal syndrome and should improve with treatment of the heart failure, which in fact occurre d. He was seen by Cardiology as well as Nephrology during his hospital stay. He had a more or less uneventful hospital course. He did have some sundowning and dementia, which cleared rapidly. Once s tabilized, he was able to be discharged back to the [facility]. He was clinically impr pierre at the time of discharge. His weight had decreased from 221 on admission to 207 at the time of discharge and renal function actually slightly improved.
[2017-09-06 11:59] VITALS: BP 164/69; TEMP 98.4
--- NOTE | 2017-09-06 15:42 | PRG ---
DATE OF SERVICE: 09/06/2017 SUBJECTIVE: Mr. Mancera is a 77-year-old white male who was seen by the renal service for his acute kidney injury on top of his chronic renal failure. He also came with shortness of breath. This was multifactorial. He was on diuretics and neb treatment. This morning, he is feeling better. He den ies any chest pain or shortness of breath. OBJECTIVE: VITAL SIGNS: Blood pressure is 168/77, heart rate 64, respiratory rate 18, temperature 98.2, pulse o x 92%. GENERAL: Noted to be awake, alert, comfortable, not in distress. SKIN: Adequate turgor. HEENT: Slightly pale conjunctivae, anicteric sclerae. NECK: No neck mass, no carotid bruits, no JVD. CHEST: No deformities. LUNGS: Decreased breath sounds. HEART: Normal sinus rhythm. No murmur, no gallops, no rubs. ABDOMEN: Globular, soft, nontender, no masses. EXTREMITIES: Status post bilateral leg amputation. MEDICATIONS: Of 09/06/2017 reviewed. LABORATORY: Of 09/05/2017, hemoglobin 8.1. Sodium 137, potassium 4, chloride 101, carbon dioxide 26 , BUN 79, creatinine 2.97, glucose 124, calcium 9.6. ASSESSMENT AND PLAN: 1. Chronic renal failure - creatinine of 2.97, which is near baseline. He is currently at stage IV chronic renal failure. Continue supportive care, continue judicious use of diuretics. Currently on Furosemide 40 mg b.i.d. 2. Shortness of breath, multifactorial etiology. Currently on diuretics. This could be from [place] congestive heart failure and chronic obstructive pulmonary disease exacerbation. 3. Anemia, currently on weekly Epogen and iron supplementation. Agree with current management. Rec heck base met and CBC in a.m. if he is still here.
== END 2017-09-06 13:45 | DRG 291 ==
LOC: ERS 15:20 → 2NO 17:53 → OBSVTOIN 09-01 14:03
PROVIDERS: ADMIT Internal Medicine Infectious Disease; ATTEND Internal Medicine Infectious Disease
DX: I13.0 Hypertensive heart and chronic kidney disease with heart failure and stage 1 through stage 4 chronic kidney disease, or unspecified chronic kidney disease (principal); I50.23 Acute on chronic systolic (congestive) heart failure; J96.01 Acute respiratory failure with hypoxia; N17.9 Acute kidney failure, unspecified; N18.4 Chronic kidney disease, stage 4 (severe); J44.9 Chronic obstructive pulmonary disease, unspecified; E11.22 Type 2 diabetes mellitus with diabetic chronic kidney disease; F41.9 Anxiety disorder, unspecified; I25.10 Atherosclerotic heart disease of native coronary artery without angina pectoris; E11.51 Type 2 diabetes mellitus with diabetic peripheral angiopathy without gangrene; E11.21 Type 2 diabetes mellitus with diabetic nephropathy; I25.5 Ischemic cardiomyopathy; Z66 Do not resuscitate; Z87.891 Personal history of nicotine dependence; Z88.8 Allergy status to other drugs, medicaments and biological substances; Z79.82 Long term (current) use of aspirin; Z79.4 Long term (current) use of insulin; Z79.899 Other long term (current) drug therapy; Z89.511 Acquired absence of right leg below knee; Z89.612 Acquired absence of left leg above knee; Z95.1 Presence of aortocoronary bypass graft
CPT/HCPCS: 36415; 36416; 71045; 80048; 80053; 80069; 82550; 82553; 83036; 83735; 83880; 84484; 85025; 93005; 93306; 94640; 94760; 96374; A4216; J1650; J1815; J1940; J7620; Q4081

== ENCOUNTER 2018-03-27 10:28 | Emergency (ER) | payer MEDICARE, MEDICAID ==
[2018-03-27 12:21] LABS: #Eosinphils 0.6 thou/uL (0.0-0.7); #Lymphocytes 1.5 thou/uL (1.20-3.40); #Monocytes 0.8 thou/uL (0.11-0.59); %Basophils 0.3 % (0.0-1.0); %Eosinophils 6.5 % (0.0-10.0); %Lymphocytes 17.3 % (21.0-51.0); %Monocytes 8.8 % (0.0-10.0); Hemoglobin 9.8 g/dL (14.0-18.0); Mean Corpuscular HGB CONC 32.8 g/dL (32.0-36.0); Mean Corpuscular Hemoglobin 30.9 pg (27.0-31.0); Mean Corpuscular Volume 94.1 fL (78.0-98.0); Mean Platelet Volume 7.7 fL (7.4-10.4); Platelet Count 235 thou/uL (130-400); RBC Distribution Width 12.3 % (11.5-14.5); Red Blood Cell (RBC) Count 3.17 mill/uL (4.70-6.10); White Blood Cell (WBC) Count 8.9 thou/uL (4.8-10.8)
[2018-03-27 12:26] LABS: ALT (SGPT) 21 U/L (8-55); AST (SGOT) 13 U/L (5-34); Albumin 3.9 g/dL (3.4-4.8); Alkaline Phosphatase 70 U/L (40-150); Anion Gap 14 mmol/L (10-20); BUN (Urea Nitrogen) 79 mg/dL (8.4-25.7); Bilirubin, Total 0.4 mg/dL (0.2-1.2); CK (CPK) 138 U/L (30-200); Calc. Creatinine Clearance 0 mL/min (70-130); Calcium 9.2 mg/dL (7.8-10.44); Carbon Dioxide 22 mmol/L (23-31); Chloride 108 mmol/L (98-107); Estimated GFR-MDRD 19; Globulin 3.2 g/dL (2.4-3.5); Glucose 140 mg/dL (83-110); Lipase 26 U/L (8-78); Potassium 4.8 mmol/L (3.5-5.1); Protein, Total 7.1 g/dL (5.8-8.1); Sodium 139 mmol/L (136-145)
[2018-03-27 12:27] LABS: CKMB 5.5 ng/mL (0-6.6)
[2018-03-27 12:58] LABS: Bilirubin Negative (Negative); Blood, Urine Negative (Negative); Clarity CLEAR (Clear); Glucose, Urine (Dipstick) Negative (Negative); Leukocyte Negative (Negative); Nitrite Negative (Negative); Protein, Urine (Dipstick) 100 mg/dL (Neg-Trace); Specific Gravity, Urine 1.014 (1.002-1.036); Urobilinogen 0.2 mg/dL (0.2-1.0)
[2018-03-27 13:00] LABS: Bacteria/HPF None Seen HPF (None Seen); Hyaline Casts/LPF 0-3 HYALINE CAST LPF (0-3 Hyaline); Pathc Cast-AUWi Flag 0.14 (0-2.49); RBC/HPF 0-3 HPF (0-3); Squamous Epithelial 0-3 HPF (0-3); WBC/HPF 0-3 HPF (0-3)
--- NOTE | 2018-03-27 13:06 | RAD ---
CHEST 1 VIEW: HISTORY: Dyspnea. COMPARISON: 08/31/2017. FINDINGS: Cardiac silhouette is magnified and enlarged. Pulmonary vasculature remains engorged with patchy are as of parenchymal infiltrate at each perihilar level and each lung base. Mediastinum is midline with postoperative changes and aortic calcification. No lobar consolidation or evidence of pneumothorax. IMPRESSION: 1. Congestive heart failure. 2. Atherosclerosis. POS: [facility]
[2018-03-27 13:21] LABS: Renal Epithelial None Seen HPF (0-3); Transitional Epithelial NONE SEEN HPF (0-3)
== END 2018-03-27 18:26 ==
LOC: ERS 10:28
DX: I13.0 Hypertensive heart and chronic kidney disease with heart failure and stage 1 through stage 4 chronic kidney disease, or unspecified chronic kidney disease (principal); I50.9 Heart failure, unspecified; N18.9 Chronic kidney disease, unspecified; R06.00 Dyspnea, unspecified; J44.9 Chronic obstructive pulmonary disease, unspecified
CPT/HCPCS: 71045; 80053; 81003; 81015; 82550; 82553; 83690; 83880; 84484; 85025; 93005

== ENCOUNTER 2018-04-18 11:21 | Observation (INO) | payer MEDICARE, MEDICAID ==
[2018-04-18 12:52] LABS: #Basophils 0.1 thou/uL (0.0-0.2); #Eosinphils 0.5 thou/uL (0.0-0.7); #Lymphocytes 1.3 thou/uL (1.20-3.40); #Monocytes 0.7 thou/uL (0.11-0.59); %Eosinophils 7.9 % (0.0-10.0); %Lymphocytes 19.3 % (21.0-51.0); %Monocytes 10.5 % (0.0-10.0); %Neutrophils 61.3 % (42.0-75.0); Hemoglobin 8.9 g/dL (14.0-18.0); Mean Corpuscular Volume 96.9 fL (78.0-98.0); Mean Platelet Volume 7.7 fL (7.4-10.4); Platelet Count 212 thou/uL (130-400); RBC Distribution Width 12.7 % (11.5-14.5); Red Blood Cell (RBC) Count 2.87 mill/uL (4.70-6.10); White Blood Cell (WBC) Count 6.6 thou/uL (4.8-10.8)
[2018-04-18] MEDS ORDERED: methylPREDNISolone Sod Succ/PF 125 MG/2 ML VIAL ONE (12:58)
[2018-04-18] MEDS ORDERED: Water For Inject, Bacteriostat 30 ML ONE (12:59)
[2018-04-18 13:14] LABS: ALT (SGPT) 18 U/L (8-55); AST (SGOT) 11 U/L (5-34); Albumin 3.8 g/dL (3.4-4.8); Alkaline Phosphatase 62 U/L (40-150); Anion Gap 12 mmol/L (10-20); BUN (Urea Nitrogen) 98 mg/dL (8.4-25.7); Bilirubin, Total 0.2 mg/dL (0.2-1.2); Calc. Creatinine Clearance 0 mL/min (70-130); Calcium 8.9 mg/dL (7.8-10.44); Carbon Dioxide 22 mmol/L (23-31); Chloride 112 mmol/L (98-107); Estimated GFR-MDRD 15; Glucose 172 mg/dL (83-110); Potassium 5.4 mmol/L (3.5-5.1); Protein, Total 6.8 g/dL (5.8-8.1); Sodium 141 mmol/L (136-145)
[2018-04-18 13:18] LABS: CKMB 4.6 ng/mL (0-6.6); Troponin I Less than 0.010 ng/mL (< 0.028)
--- NOTE | 2018-04-18 14:34 | RAD ---
PORTABLE CHEST 1 VIEW: DATE: 04/18/2018. TIME: 11:49 a.m. HISTORY: Shortness of breath. FINDINGS/IMPRESSION: Comparison is made with the exam of 03/27/2018. Changes of median sternotomy are again seen. The heart is enlarged. The aorta is tortuous. There i s mild prominence of pulmonary vascularity. No lobar consolidation, pneumothoraces, or large effusio ns are seen. POS: [facility]
--- NOTE | 2018-04-18 15:03 | HP ---
DATE OF ADMISSION: 04/18/2018 PRIMARY CARE PHYSICIAN: Kelly Pacheco M.D. REASON FOR ADMISSION: Acute hypoxic respiratory failure. HISTORY OF PRESENT ILLNESS: An 78-year-old male who lives at [facility]. He has under lying multiple medical problems including chronic systolic and diastolic heart failure, chronic kidne y disease stage 3, hypertension, diabetes type 2, obesity, and COPD. Based on last echocardiography, his EF is 40%-45%. Patient reports that he was feeling fine. He did not have any complaints, but a t assisted, patient was found with hypoxia with saturation in the 80s. In the emergency room, th is patient was not wheezing. He was not in respiratory distress, but whenever he was going to sleep, his saturation was dropping to 88%-87%. When I was getting history from him intermittently he was g oing in sleep. His daughter is present at bedside who provided some history. Patient's primary care physician suspected obstructive sleep apnea and discussed about sleep study, but has not done yet. The patient is not on long-term oxygen therapy at assisted. He was not having any orthopnea, PND . He was not wheezing. He did not have any upper or lower respiratory symptoms. He denies any flu- like illness. He denies any cough or chest pain. He did not have any fever or chills. He denies an y abdominal pain, UTI symptoms. This patient has bilateral amputations with a left [id number] an d right [id number], so he remains mostly bedbound. REVIEW OF SYSTEMS: The following complete review of systems was negative, unless otherwise mentioned in the HPI or below: Constitutional: Weight loss or gain, ability to conduct usual activities. Sk in: Rash, itching. Eyes: Double vision, pain. ENT/Mouth: Nose bleeding, neck stiffness, pain, te nderness. Cardiovascular: Palpitations, dyspnea on exertion, orthopnea. Respiratory: Shortness of breath, wheezing, cough, hemoptysis, fever or night sweats. Gastrointestinal: Poor appetite, abdom inal pain, heartburn, nausea, vomiting, constipation, or diarrhea. Genitourinary: Urgency, frequenc y, dysuria, nocturia. Musculoskeletal: Pain, swelling. Neurologic/Psychiatric: Anxiety, depressio n. Allergy/Immunologic: Skin rash, bleeding tendency. Please see my HPI. PAST MEDICAL HISTORY: Chronic systolic congestive heart failure, ischemic cardiomyopathy, chronic ki dney disease stage 3, hypertension, diabetes type 2, COPD, obesity, coronary artery disease, sleep ap sony, possible peripheral vascular disease. PAST SURGICAL HISTORY: Left above knee amputation, right below knee amputation, left wrist surgery, CABG. ALLERGIES: AMBIEN. FAMILY HISTORY: Negative for any congestive heart failure, stroke or cancer. No family history of c oronary artery disease. SOCIAL HISTORY: Patient lives at [facility]. He has a remote history of smoking, but he quit smoking several years ago. He denies any alcohol abuse. He denies any other illicit drug ab use. CURRENT HOME MEDICATIONS: Norvasc 5 mg daily, Lipitor 80 mg p.o. at bedtime, Coreg 25 mg p.o. b.i.d. , Colace 100 mg p.o. b.i.d., gabapentin 100 mg p.o. t.i.d., Lantus insulin 22 units subcu in the morn ing, DuoNeb q.6 hourly, melatonin 5 mg p.o. at bedtime, aspirin 81 mg p.o. daily, ferrous sulfate 325 mg p.o. b.i.d., Lasix 40 mg p.o. b.i.d., hydralazine 25 mg p.o. t.i.d., Imdur 60 mg p.o. daily, Daisy log as per sliding scale. PAST PSYCHIATRIC HISTORY: Anxiety and depression. PHYSICAL EXAMINATION: VITAL SIGNS: Currently, blood pressure 110/58, pulse 57, respiratory rate 18, temperature 98.2, satu ration 96% on 3 liter oxygen, weight 104 pounds. GENERAL: Patient is currently sleepy, lethargic, no obvious acute distress, arousable. HEAD: Normocephalic, atraumatic. EYES: Pupils round, reactive to light. Extraocular muscle intact. ENT: Oropharynx within normal limits. Moist mucous membranes, no oral lesion, no pharyngeal erythem a, no exudate. NECK: Supple, no JVD, no thyromegaly, no carotid bruit. LUNGS: Clear to auscultation without any rhonchi or rales. CARDIAC: S1, S2 appears regular without any significant murmur. ABDOMEN: Obesity present. Bowel sounds present, nontender, nondistended. No organomegaly, no mass, no suprapubic tenderness. BACK: Unremarkable, no CVA tenderness. EXTREMITIES: Upper extremity: Passive movements of all joints are normal. Lower extremity: Left a bettye knee amputation, right below knee amputation. NEUROLOGIC: Grossly nonfocal examination, but detailed neurological examination is not possible ana use of somnolence. SKIN: No skin rash. HEMATOLOGIC: No lymphadenopathy. PSYCHIATRIC: Normal affect. SIGNIFICANT LABORATORY DATA: EKG showing sinus bradycardia, nonspecific ST-T changes. Chest x-ray b ased on my review, no acute cardiopulmonary process. CBC: WBC 6.6, hemoglobin 8.9, platelet 212. B MP shows sodium 141, potassium 5.4, chloride 112, carbon dioxide 22, anion gap 12, BUN 98, creatinine 3.79, glucose 172, calcium 8.9. LFT: AST 11, ALT 18, alkaline phosphatase 62, albumin 3.8, CK-MB 4 .6, troponin I less than 0.010. ASSESSMENT AND PLAN: 1. Hypoxic respiratory failure, acute. This patient's oxygen saturation is low especially whenever he is sleepy. He has daytime somnolence. He is snoring during night time, most likely suspected for obstructive sleep apnea. We will check ABG. At this point, patient appears to be euvolemic. He do es not have any congestion on x-ray. He does not have any fluid overload status. He has underlying COPD and that is why we will continue to treat with DuoNeb therapy. We will observe him for 24-48 ho urs. Eventually, this patient will need a sleep study as an outpatient basis for definitive diagnosi s. He already had echocardiography done in the recent past, so no need of repeating echocardiography . We will continue with his home medication. 2. Chronic systolic and diastolic heart failure, stage C with moderate mitral regurgitation. Curren tly, the patient appears euvolemic. He has underlying chronic kidney failure that is why BNP would n ot be appropriate test to interpret. We will continue Coreg. He cannot have lisinopril or ARB becau se of hyperkalemia and renal failure and that is why we will continue hydralazine and mononitrate reg imen. 3. Diabetes type 2. Continue insulin as per sliding scale. Continue home dose of Lantus while in h ospital. Diabetic diet will be given. Fluid restriction 1500 mL per day. 4. Dyslipidemia. Continue Lipitor 80 mg p.o. at bedtime. 5. Hypotension. Continue hydralazine, mononitrate, Lasix, and if needed we will add amlodipine as w ell which he is taking at assisted. 6. Bilateral amputee status: The patient will need supportive care while in hospital. 7. Chronic kidney disease stage 4. Monitor renal function. Patient will need near future hemodialy sis. 8. Anemia of renal disease. Continue ferrous sulfate 325 mg p.o. daily. 9. Mild hyperkalemia, hyperchloremia, likely due to renal failure. 10. Deep venous thrombosis prophylaxis, heparin 5000 units subcu twice daily. 11. Gastrointestinal prophylaxis, Protonix 40 mg p.o. daily. CODE STATUS: The patient has out of hospital DNR paperwork done at assisted and verified with th e patient's daughter who is medical power of transactional attorney. Patient wanted to be DNR while in hospital. Disposition plan based on clinical course. We are expecting patient discharge in 24-48 hours. Plan of care discussed with the family member at bedside in the emergency room.
[2018-04-18] MEDS ORDERED: Eucerin (Mineral Oil/Petrolatum,White) 30 gm Jar TOP PRN (16:08)
[2018-04-18] MEDS ORDERED: Dextrose 50% Abboject 50 ML SYRINGE SLOW IVP PRN (16:08)
[2018-04-18] MEDS ORDERED: Calcium Carbonate 500 MG ChewTAB PO PRN (16:08)
[2018-04-18] MEDS ORDERED: Diabetic Tussin 200 MG/10 ML UDCUP PO PRN (16:08)
[2018-04-18] MEDS ORDERED: Senokot S 8.6-50 MG TAB PO PRN (16:08)
[2018-04-18] MEDS ORDERED: Ondansetron PF 4 MG/2 ML Vial IVP PRN (16:08)
[2018-04-18] MEDS ORDERED: Loperamide HCl 2 MG CAP PO PRN (16:08)
[2018-04-18] MEDS ORDERED: Bisacodyl 10 MG SUPP PR PRN (16:08)
[2018-04-18] MEDS ORDERED: Sodium Chloride 0.65% Nasal 44 ML BOT EA NARE PRN (16:08)
[2018-04-18] MEDS ORDERED: Nitroglycerin 0.4 MG TAB (25 Tab Bottle) SL PRN (16:08)
[2018-04-18] MEDS ORDERED: Bisacodyl 5 MG TAB PO PRN (16:08)
[2018-04-18] MEDS ORDERED: hydrALAZINE 20 MG/ML VIAL SLOW IVP PRN (16:08)
[2018-04-18] MEDS ORDERED: Artificial Tears 18 DROP/0.9 ML EA EYE PRN (16:08)
[2018-04-18] MEDS ORDERED: Ondansetron ODT 4 MG TAB SL PRN (16:08)
[2018-04-18] MEDS ORDERED: Dextrose 5% in Water 1,000 ML IV PRN (16:08)
[2018-04-18] MEDS ORDERED: Acetaminophen 325 MG TAB PO PRN (16:08)
[2018-04-18 16:29] VITALS: BMI 35.5
[2018-04-18] MEDS ORDERED: hydrALAZINE 25 MG TAB PO SCH (16:45)
[2018-04-18] MEDS: Carvedilol 25 MG TAB PO SCH (16:51)
[2018-04-18] MEDS: HumaLOG 300 UNITS/3 ML VIAL SC PRN ×2 (17:08→20:46)
[2018-04-18 17:40] LABS: Bilirubin Negative (Negative); Blood, Urine Negative (Negative); Clarity CLEAR (Clear); Glucose, Urine (Dipstick) Negative (Negative); Leukocyte Negative (Negative); Nitrite Negative (Negative); Protein, Urine (Dipstick) 300 mg/dL (Neg-Trace); Specific Gravity, Urine 1.017 (1.002-1.036); Urobilinogen 0.2 mg/dL (0.2-1.0); pH, Urine 5.5 (5.0-9.0)
[2018-04-18 17:42] LABS: Bacteria/HPF None Seen HPF (None Seen); Hyaline Casts/LPF 7-10 HYALINE CAST LPF (0-3 Hyaline); Pathc Cast-AUWi Flag 1.45 (0-2.49); RBC/HPF 0-3 HPF (0-3); Squamous Epithelial 0-3 HPF (0-3); WBC/HPF 0-3 HPF (0-3)
[2018-04-18 19:31] LABS: Actual Bicarbonate (HCO3a) 20.1 mEq/L (22-28); Base Excess (BEa) -5.6 mEq/L (-2.0 to +3.0); CO2 Tension 40.2 mmHg (35.0-45.0); Calcium, Ionized 1.19 mmol/L (1.12-1.30); Carboxyhemoglobin (COHb) 0.9 gm% (0.0-3.0); Hemoglobin (Hb) 9.5 g/dL (14.0-18.0); O2 Tension (PaO2) 65.5 mmHg (> 60.0); Potassium - ABG Lab 5.53 mmol/L (3.70-5.30); pH, Arterial 7.32 (7.35-7.45)
[2018-04-18 19:32] LABS: Puncture Site R RADIAL
[2018-04-18] MEDS: hydrALAZINE 25 MG TAB PO SCH (20:42)
[2018-04-18] MEDS: Heparin 5,000 UNITS/ML VIAL SC SCH (20:43)
[2018-04-18] MEDS ORDERED: Atorvastatin Calcium 40 MG TAB PO SCH (21:00)
[2018-04-19] MEDS ORDERED: Haloperidol Lactate 5 MG/ML VIAL IM PRN (04:25)
[2018-04-19] MEDS: Furosemide 40 MG/4 ML VIAL SLOW IVP SCH ×2 (06:20→13:43)
[2018-04-19] MEDS ORDERED: Polyethylene Glycol 3350 17 GM Packet PO PRN ×2 (07:24→07:47)
[2018-04-19] MEDS ORDERED: Nystatin Powder 15 GM BOT TOP PRN (07:26)
[2018-04-19 07:56] LABS: #Lymphocytes 0.7 thou/uL (1.20-3.40); #Monocytes 0.4 thou/uL (0.11-0.59); #Neutrophils 5.3 thou/uL (1.40-6.50); %Basophils 0.3 % (0.0-1.0); %Eosinophils 0.1 % (0.0-10.0); %Lymphocytes 10.5 % (21.0-51.0); %Monocytes 6.5 % (0.0-10.0); %Neutrophils 82.6 % (42.0-75.0); Hemoglobin 8.3 g/dL (14.0-18.0); Mean Corpuscular Hemoglobin 30.9 pg (27.0-31.0); Mean Corpuscular Volume 96.4 fL (78.0-98.0); Mean Platelet Volume 7.8 fL (7.4-10.4); Platelet Count 209 thou/uL (130-400); RBC Distribution Width 12.5 % (11.5-14.5); White Blood Cell (WBC) Count 6.4 thou/uL (4.8-10.8)
[2018-04-19] MEDS ORDERED: Ferrous Sulfate 325 MG TAB PO SCH (08:00)
[2018-04-19 08:10] LABS: ALT (SGPT) 20 U/L (8-55); AST (SGOT) 11 U/L (5-34); Albumin 3.7 g/dL (3.4-4.8); Alkaline Phosphatase 57 U/L (40-150); Anion Gap 15 mmol/L (10-20); BUN (Urea Nitrogen) 109 mg/dL (8.4-25.7); Bilirubin, Total 0.3 mg/dL (0.2-1.2); Calc. Creatinine Clearance 21 mL/min (70-130); Calcium 9.1 mg/dL (7.8-10.44); Carbon Dioxide 19 mmol/L (23-31); Chloride 111 mmol/L (98-107); Estimated GFR-MDRD 15; Globulin 2.9 g/dL (2.4-3.5); Glucose 340 mg/dL (83-110); Magnesium 2.2 mg/dL (1.6-2.6); Potassium 5.4 mmol/L (3.5-5.1); Protein, Total 6.6 g/dL (5.8-8.1); Sodium 140 mmol/L (136-145); Uric Acid 10.2 mg/dL (3.5-7.2)
[2018-04-19] MEDS ORDERED: [UNRECOGNIZED DRUG - OTHER] OP SCH (09:00)
[2018-04-19] MEDS ORDERED: PEG OP SCH (09:00)
[2018-04-19] MEDS ORDERED: PROPYLENE GLYCOL OP SCH (09:00)
[2018-04-19] MEDS ORDERED: Insulin Glargine 20 UNITS in Pre-Filled Syringe 1 EACH SC SCH (09:00)
[2018-04-19] MEDS: Docusate 100 MG CAP PO SCH (09:10)
[2018-04-19] MEDS: Carvedilol 25 MG TAB PO SCH ×2 (09:10→15:12)
[2018-04-19] MEDS: Ferrous Sulfate 325 MG TAB PO SCH ×2 (09:10→15:12)
[2018-04-19] MEDS: Aspirin 81 mg Enteric Coated Tablet PO SCH (09:10)
[2018-04-19] MEDS: Heparin 5,000 UNITS/ML VIAL SC SCH ×2 (09:10→22:26)
[2018-04-19] MEDS: Amlodipine 5 MG TAB PO SCH (09:11)
[2018-04-19] MEDS: HumaLOG 300 UNITS/3 ML VIAL SC PRN ×3 (09:11→22:34)
[2018-04-19] MEDS: hydrALAZINE 25 MG TAB PO SCH ×3 (09:11→22:24)
[2018-04-19] MEDS: Bisacodyl 10 MG SUPP PR SCH (09:20)
[2018-04-19] MEDS: Insulin Glargine 36 UNITS in Pre-Filled Syringe 1 EACH SC SCH (09:52)
[2018-04-19] MEDS: Polyethylene Glycol OPTH DROP 15 ML BOT EA EYE SCH ×4 (09:52→22:30)
--- NOTE | 2018-04-19 10:33 | PDOC.PN ---
- Subjective Encounter Start Date: 04/19/18 Encounter Start Time: 07:45 -: old records requested/rev Patient seen and examined. No new complaints. No overnight events - Objective Resuscitation Status: Resuscitation Status DNR:Do Not Resuscitate MAR Reviewed: Yes Vital Signs & Weight: Vital Signs (12 hours) Temp Pulse Resp BP Pulse Ox 04/19/18 08:10 97.3 F L 65 19 160/69 H 94 L 04/19/18 06:47 70 14 04/19/18 01:58 CDT 90 L Weight Weight 223 lb 14.4 oz I&O: 04/18/18 04/19/18 04/20/18 07:59 06:59 06:59 Intake Total Output Total Balance Result Diagrams: 04/19/18 07:20 04/19/18 07:20 Additional Labs: Accuchecks 04/19/18 04/18/18 04/18/18 04:55 20:11 16:55 POC Glucose 361 H 283 H 193 H Phys Exam - Physical Examination Constitutional: NAD HEENT: PERRLA, moist MMs, sclera anicteric Neck: no JVD, supple Respiratory: no wheezing, no rales, no rhonchi Cardiovascular: RRR, no significant murmur, no rub Gastrointestinal: soft, non-tender, 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, positive bowel sounds obesity+ left AKA, right BKA Lymphatic: no nodes Psychiatric: normal affect Skin: no rash, normal turgor Dx/Plan (1) Chronic combined systolic and diastolic CHF (congestive heart failure) Code(s): I50.42 - CHRONIC COMBINED SYSTOLIC AND DIASTOLIC HRT FAIL Status: Chronic Comment: may be acute exacerbation, stage C (2) Acute respiratory failure with hypoxia Code(s): J96.01 - ACUTE RESPIRATORY FAILURE WITH HYPOXIA Status: Acute (3) Somnolence Code(s): R40.0 - SOMNOLENCE Status: Resolved (4) Amputation leg, bilat Code(s): S88.911A - COMPLETE TRAUMATIC AMPUTATION OF R LOW LEG, LEVEL UNSP, INIT ; S88.912A - COMPLETE TRAUMATIC AMPUTATION OF L LOW LEG, LEVEL UNSP, INIT Status: Chronic (5) Anemia, normocytic normochromic Code(s): D64.9 - ANEMIA, UNSPECIFIED Status: Chronic (6) CAD (coronary artery disease) Code(s): I25.10 - ATHSCL HEART DISEASE OF [place] CORONARY ARTERY W/O ANG PCTRS Status: Chronic Qualifiers: (7) CKD (chronic kidney disease) stage 4, GFR 15-29 ml/min Code(s): N18.4 - CHRONIC KIDNEY DISEASE, STAGE 4 (SEVERE) Status: Chronic Comment: (8) Diabetes mellitus type 2 in obese Code(s): E11.69 - TYPE 2 DIABETES MELLITUS WITH OTHER SPECIFIED COMPLICATION; E66.9 - OBESITY, UNSPECIFIED Status: Chronic (9) HLD (hyperlipidemia) Code(s): E78.5 - HYPERLIPIDEMIA, UNSPECIFIED Status: Chronic Qualifiers: (10) HTN (hypertension) Code(s): I10 - ESSENTIAL (PRIMARY) HYPERTENSION Status: Chronic Qualifiers: (11) Obesity (BMI 30-39.9) Code(s): E66.9 - OBESITY, UNSPECIFIED Status: Chronic (12) PVD (peripheral vascular disease) Code(s): I73.9 - PERIPHERAL VASCULAR DISEASE, UNSPECIFIED Status: Chronic - Plan cont current plan of care * will continue IV diuresis today, * his creatinine is elevated which may be related with diuresis * medication reviewed as below * symptomatic treatment * will keep today in hospital * repeat BMP tomorrow and possible DC to SNU tomorrow * outpt sleep study. Review of Systems - Review of Systems Constitutional: negative: fever, chills, sweats, weakness, malaise, other ENT: negative: Ear Pain, Ear Discharge, Nose Pain, Nose Discharge, Nose Congestion, Mouth Pain, Mouth Swelling, Throat Pain, Throat Swelling, Other Respiratory: negative: Cough, Dry, Shortness of Breath, Hemoptysis, SOB with Excertion, Pleuritic Pain, Sputum, Wheezing Cardiovascular: negative: chest pain, palpitations, orthopnea, paroxysmal nocturnal dyspnea, edema, light headedness, other Gastrointestinal: negative: Nausea, Vomiting, Abdominal Pain, Diarrhea, Constipation, Melena, Hematochezia, Other Genitourinary: negative: Dysuria, Frequency, Incontinence, Hematuria, Retention , Other - Medications/Allergies Allergies/Adverse Reactions: Allergies Allergy/AdvReac Type Severity Reaction Status Date / Time acetaminophen [From [place]] Allergy pts family Verified 04/18/18 16:26 notes [place] made him violent hydrocodone [From [place]] Allergy pts family Verified 04/18/18 16:26 notes [place] made him violent zolpidem [From Ambien] AdvReac Verified 04/18/18 11:21 Medications: Current Medications Acetaminophen (Tylenol) 650 mg PO Q4H PRN PRN Reason: Headache/Fever/Mild Pain (1-3) Albuterol/Ipratropium (Duoneb) 3 ml NEB [id number] [facility] Last Admin: 04/19/18 06:47 Dose: 3 ml Amlodipine Besylate (Norvasc) 5 mg PO DAILY [facility] Last Admin: 04/19/18 09:11 Dose: 5 mg Artificial Tears (Tears Naturale) 2 drop EA EYE PRN PRN PRN Reason: Dry Eyes Aspirin (Ecotrin) 81 mg PO DAILY [facility] Last Admin: 04/19/18 09:10 Dose: 81 mg Atorvastatin Calcium (Lipitor) 40 mg PO [facility] Betamethasone Valerate (Valisone 0.1% Cream) 0 gm TOP BID [facility] Bisacodyl (Dulcolax) 10 mg PO DAILYPRN PRN PRN Reason: Constipation Bisacodyl (Dulcolax) 10 mg [place] DAILYPRN PRN PRN Reason: Constipation Bisacodyl (Dulcolax) 10 mg [place] DAILY [facility] Last Admin: 04/19/18 09:20 Dose: 10 mg Calcium Carbonate (Tums) 1,000 mg PO Q4H PRN PRN Reason: Heartburn or Indigestion Carvedilol (Coreg) 25 mg PO BID[facility] Last Admin: 04/19/18 09:10 Dose: 25 mg Dextrose/Water (Dextrose 50%) 25 gm SLOW IVP PRN PRN PRN Reason: Hypoglycemia Docusate Sodium (Colace) 100 mg PO DAILY [facility] Last Admin: 04/19/18 09:10 Dose: 100 mg Ferrous Sulfate (Feosol) 325 mg PO BID-[facility] Last Admin: 04/19/18 09:10 Dose: 325 mg Furosemide (Lasix) 40 mg SLOW IVP 0600,1400 [facility] Last Admin: 04/19/18 06:20 Dose: 40 mg Glucagon (Glucagon) 1 mg IM PRN PRN PRN Reason: Hypoglycemia Guaifenesin (Robitussin Sf) 200 mg PO Q4H PRN PRN Reason: Cough Heparin Sodium (Porcine) (Heparin) 5,000 units SC BID [facility] Last Admin: 04/19/18 09:10 Dose: 5,000 units Hydralazine HCl (Apresoline) 10 mg SLOW IVP Q4H PRN PRN Reason: SBP > 180 and HR < 70 Hydralazine HCl (Apresoline) 25 mg PO TID [facility] Last Admin: 04/19/18 09:11 Dose: 25 mg Dextrose/Water (D5w) 1,000 mls @ 0 mls/hr IV .Q0M PRN PRN Reason: Hypoglycemia Insulin Glargine 36 units/ (Miscellaneous Medication) 0.36 mls @ 0 mls/hr SC QAM [facility] Last Admin: 04/19/18 09:52 Dose: 0.36 mls Insulin Human Lispro (Humalog) 0 units SC .MODERATE SLIDING SC PRN PRN Reason: Moderate Correctional Scale Last Admin: 04/19/18 09:11 Dose: 8 unit Insulin Human Lispro (Humalog) 0 units SC .BEDTIME SLIDING SC PRN PRN Reason: Bedtime Correctional Scale Last Admin: 04/18/18 20:46 Dose: 3 unit Isosorbide Mononitrate (Imdur) 60 mg PO DAILY [facility] Last Admin: 04/19/18 09:11 Dose: 60 mg Loperamide HCl (Imodium) 2 mg PO PRN PRN PRN Reason: Diarrhea/Loose Stools Mineral Oil/White Petrolatum (Eucerin Cream) 0 gm TOP BIDPRN PRN PRN Reason: Dry Skin Nitroglycerin (Nitrostat) 0.4 mg SL Q5MIN PRN PRN Reason: Chest Pain Nystatin (Mycostatin Powder) 1 gm TOP BID PRN PRN Reason: Topical Irritations Ondansetron HCl (Zofran Odt) 4 mg SL Q6H PRN PRN Reason: Nausea/Vomiting Ondansetron HCl (Zofran) 4 mg IVP Q6H PRN PRN Reason: Nausea/Vomiting [Melatonin] 5 Mg 0 each PO [facility] Polyethylene Glycol (Miralax) 17 gm PO DAILY PRN PRN Reason: Constipation Propylene Glycol (Systane Opth Drop 15ml Bot) 1 drop EA EYE QID [facility] Last Admin: 04/19/18 09:52 Dose: 1 drop Senna/Docusate Sodium (Senokot S) 2 tab PO BID PRN PRN Reason: Constipation Sodium Chloride ([place] Nasal [place] 0.65%) 0 ml EA NARE QIDPRN PRN PRN Reason: Nasal Congestion
[2018-04-19] MEDS ORDERED: Atorvastatin Calcium 40 MG TAB PO SCH (21:00)
[2018-04-19] MEDS ORDERED: Non-Formulary Item 1 EACH (Melatonin [Melatonin] 5 MG) PO SCH (21:00)
[2018-04-19] MEDS ORDERED: Non-Formulary Item 1 EACH (Atorvastatin Calcium [Atorvastatin Calcium] 40 MG) PO SCH (21:00)
[2018-04-19] MEDS ORDERED: Melatonin 3 MG TAB PO SCH (21:00)
[2018-04-19] MEDS: Betamethasone 0.1% Cream 15 GM TUBE TOP SCH (22:25)
[2018-04-20] MEDS: Furosemide 40 MG/4 ML VIAL SLOW IVP SCH (06:03)
[2018-04-20 08:39] LABS: Albumin 3.7 g/dL (3.4-4.8); Anion Gap 13 mmol/L (10-20); BUN (Urea Nitrogen) 117 mg/dL (8.4-25.7); BUN/Creatinine Ratio 26.96; Calc. Creatinine Clearance 19 mL/min (70-130); Calcium 8.8 mg/dL (7.8-10.44); Carbon Dioxide 21 mmol/L (23-31); Chloride 111 mmol/L (98-107); Estimated GFR-MDRD 13; Glucose 125 mg/dL (83-110); Magnesium 2.3 mg/dL (1.6-2.6); Phosphorus 4.9 mg/dL (2.3-4.7); Potassium 4.7 mmol/L (3.5-5.1); Sodium 140 mmol/L (136-145)
[2018-04-20 09:30] VITALS: TEMP 97.4
[2018-04-20] MEDS: Bisacodyl 10 MG SUPP PR SCH (09:30)
[2018-04-20] MEDS: Amlodipine 5 MG TAB PO SCH (09:31)
[2018-04-20] MEDS: Aspirin 81 mg Enteric Coated Tablet PO SCH (09:31)
[2018-04-20] MEDS: Heparin 5,000 UNITS/ML VIAL SC SCH (09:31)
[2018-04-20] MEDS: Docusate 100 MG CAP PO SCH (09:31)
[2018-04-20] MEDS: hydrALAZINE 25 MG TAB PO SCH (09:32)
[2018-04-20] MEDS: Insulin Glargine 36 UNITS in Pre-Filled Syringe 1 EACH SC SCH (09:32)
[2018-04-20] MEDS: Ferrous Sulfate 325 MG TAB PO SCH (09:32)
[2018-04-20] MEDS: Carvedilol 25 MG TAB PO SCH (09:32)
[2018-04-20] MEDS: Betamethasone 0.1% Cream 15 GM TUBE TOP SCH (09:32)
[2018-04-20] MEDS: Polyethylene Glycol OPTH DROP 15 ML BOT EA EYE SCH (09:33)
--- NOTE | 2018-04-20 09:36 | PDOC.PN ---
- Subjective Encounter Start Date: 04/20/18 Encounter Start Time: 07:40 Patient seen and examined. No new complaints. No overnight events - Objective Resuscitation Status: Resuscitation Status DNR:Do Not Resuscitate MAR Reviewed: Yes Vital Signs & Weight: Vital Signs (12 hours) Temp Pulse Resp BP BP Pulse Ox 04/20/18 07:04 54 L 16 94 L 04/20/18 07:00 97.4 F L 85 14 137/63 93 L 04/20/18 03:15 97.5 F L 55 L 18 111/53 L 94 L 04/20/18 00:15 92 L 04/19/18 23:34 58 L 18 92 L 04/19/18 23:33 58 L 18 92 L 04/19/18 22:24 61 144/62 H Weight Weight 218 lb 12.8 oz I&O: 04/19/18 04/20/18 04/21/18 06:59 06:59 06:59 Intake Total 1467 Output Total 1055 Balance 412 Result Diagrams: 04/19/18 07:20 04/20/18 07:52 Additional Labs: Accuchecks 04/20/18 04/20/18 04/19/18 07:34 05:47 20:49 POC Glucose 137 H 63 L 212 H 04/19/18 16:42 POC Glucose 231 H EKG Reviewed by me: Yes Phys Exam - Physical Examination Constitutional: NAD HEENT: PERRLA, moist MMs, sclera anicteric Neck: no JVD, supple Respiratory: no wheezing, no rales, no rhonchi Cardiovascular: RRR, no significant murmur, no rub Gastrointestinal: soft, non-tender, 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, positive bowel sounds left aka, right bka Psychiatric: normal affect, A&O x 3 Skin: no rash, normal turgor Dx/Plan (1) Chronic combined systolic and diastolic CHF (congestive heart failure) Code(s): I50.42 - CHRONIC COMBINED SYSTOLIC AND DIASTOLIC HRT FAIL Status: Chronic Comment: may be acute exacerbation, stage C (2) Acute respiratory failure with hypoxia Code(s): J96.01 - ACUTE RESPIRATORY FAILURE WITH HYPOXIA Status: Acute (3) Somnolence Code(s): R40.0 - SOMNOLENCE Status: Resolved (4) Amputation leg, bilat Code(s): S88.911A - COMPLETE TRAUMATIC AMPUTATION OF R LOW LEG, LEVEL UNSP, INIT ; S88.912A - COMPLETE TRAUMATIC AMPUTATION OF L LOW LEG, LEVEL UNSP, INIT Status: Chronic (5) Anemia, normocytic normochromic Code(s): D64.9 - ANEMIA, UNSPECIFIED Status: Chronic (6) CAD (coronary artery disease) Code(s): I25.10 - ATHSCL HEART DISEASE OF [place] CORONARY ARTERY W/O ANG PCTRS Status: Chronic Qualifiers: (7) CKD (chronic kidney disease) stage 4, GFR 15-29 ml/min Code(s): N18.4 - CHRONIC KIDNEY DISEASE, STAGE 4 (SEVERE) Status: Chronic Comment: (8) Diabetes mellitus type 2 in obese Code(s): E11.69 - TYPE 2 DIABETES MELLITUS WITH OTHER SPECIFIED COMPLICATION; E66.9 - OBESITY, UNSPECIFIED Status: Chronic (9) HLD (hyperlipidemia) Code(s): E78.5 - HYPERLIPIDEMIA, UNSPECIFIED Status: Chronic Qualifiers: (10) HTN (hypertension) Code(s): I10 - ESSENTIAL (PRIMARY) HYPERTENSION Status: Chronic Qualifiers: (11) Obesity (BMI 30-39.9) Code(s): E66.9 - OBESITY, UNSPECIFIED Status: Chronic (12) PVD (peripheral vascular disease) Code(s): I73.9 - PERIPHERAL VASCULAR DISEASE, UNSPECIFIED Status: Chronic - 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 Review of Systems - Review of Systems ENT: negative: Ear Pain, Ear Discharge, Nose Pain, Nose Discharge, Nose Congestion, Mouth Pain, Mouth Swelling, Throat Pain, Throat Swelling, Other Respiratory: negative: Cough, Dry, Shortness of Breath, Hemoptysis, SOB with Excertion, Pleuritic Pain, Sputum, Wheezing Cardiovascular: negative: chest pain, palpitations, orthopnea, paroxysmal nocturnal dyspnea, edema, light headedness, other Gastrointestinal: negative: Nausea, Vomiting, Abdominal Pain, Diarrhea, Constipation, Melena, Hematochezia, Other Genitourinary: negative: Dysuria, Frequency, Incontinence, Hematuria, Retention , Other Musculoskeletal: negative: Neck Pain, Shoulder Pain, Arm Pain, Back Pain, Hand Pain, Leg Pain, Foot Pain, Other - Medications/Allergies Allergies/Adverse Reactions: Allergies Allergy/AdvReac Type Severity Reaction Status Date / Time acetaminophen [From [place]] Allergy pts family Verified 04/18/18 16:26 notes [place] made him violent hydrocodone [From [place]] Allergy pts family Verified 04/18/18 16:26 notes [place] made him violent zolpidem [From Ambien] AdvReac Verified 04/18/18 11:21 Medications: Current Medications Acetaminophen (Tylenol) 650 mg PO Q4H PRN PRN Reason: Headache/Fever/Mild Pain (1-3) Last Admin: 04/19/18 13:42 Dose: 650 mg Albuterol/Ipratropium (Duoneb) 3 ml NEB [id number] [facility] Last Admin: 04/20/18 07:04 Dose: 3 ml Amlodipine Besylate (Norvasc) 5 mg PO DAILY [facility] Last Admin: 04/19/18 09:11 Dose: 5 mg Artificial Tears (Tears Naturale) 2 drop EA EYE PRN PRN PRN Reason: Dry Eyes Aspirin (Ecotrin) 81 mg PO DAILY [facility] Last Admin: 04/19/18 09:10 Dose: 81 mg Atorvastatin Calcium (Lipitor) 40 mg PO HS [facility] Last Admin: 04/19/18 22:24 Dose: 40 mg Betamethasone Valerate (Valisone 0.1% Cream) 0 gm TOP BID [facility] Last Admin: 04/19/18 22:25 Dose: 1 applic Bisacodyl (Dulcolax) 10 mg PO DAILYPRN PRN PRN Reason: Constipation Bisacodyl (Dulcolax) 10 mg [place] DAILYPRN PRN PRN Reason: Constipation Bisacodyl (Dulcolax) 10 mg NC DAILY [facility] Last Admin: 04/20/18 09:30 Dose: Not Given Calcium Carbonate (Tums) 1,000 mg PO Q4H PRN PRN Reason: Heartburn or Indigestion Carvedilol (Coreg) 25 mg PO BID-[facility] Last Admin: 04/19/18 15:12 Dose: 25 mg Dextrose/Water (Dextrose 50%) 25 gm SLOW IVP PRN PRN PRN Reason: Hypoglycemia Docusate Sodium (Colace) 100 mg PO DAILY [facility] Last Admin: 04/19/18 09:10 Dose: 100 mg Ferrous Sulfate (Feosol) 325 mg PO BID-[facility] Last Admin: 04/19/18 15:12 Dose: 325 mg Glucagon (Glucagon) 1 mg IM PRN PRN PRN Reason: Hypoglycemia Guaifenesin (Robitussin Sf) 200 mg PO Q4H PRN PRN Reason: Cough Heparin Sodium (Porcine) (Heparin) 5,000 units SC BID [facility] Last Admin: 04/19/18 22:26 Dose: 5,000 units Hydralazine HCl (Apresoline) 10 mg SLOW IVP Q4H PRN PRN Reason: SBP > 180 and HR < 70 Hydralazine HCl (Apresoline) 25 mg PO TID [facility] Last Admin: 04/19/18 22:24 Dose: 25 mg Dextrose/Water (D5w) 1,000 mls @ 0 mls/hr IV .Q0M PRN PRN Reason: Hypoglycemia Insulin Glargine 36 units/ (Miscellaneous Medication) 0.36 mls @ 0 mls/hr SC [facility] Last Admin: 04/19/18 09:52 Dose: 0.36 mls Insulin Human Lispro (Humalog) 0 units SC .MODERATE SLIDING SC PRN PRN Reason: Moderate Correctional Scale Last Admin: 04/19/18 17:28 Dose: 4 unit Insulin Human Lispro (Humalog) 0 units SC .BEDTIME SLIDING SC PRN PRN Reason: Bedtime Correctional Scale Last Admin: 04/19/18 22:34 Dose: 2 unit Isosorbide Mononitrate (Imdur) 60 mg PO DAILY [facility] Last Admin: 04/19/18 09:11 Dose: 60 mg Loperamide HCl (Imodium) 2 mg PO PRN PRN PRN Reason: Diarrhea/Loose Stools Melatonin (Melatonin) 6 mg PO HS [facility] Last Admin: 04/19/18 22:30 Dose: 6 mg Mineral Oil/White Petrolatum (Eucerin Cream) 0 gm TOP BIDPRN PRN PRN Reason: Dry Skin Nitroglycerin (Nitrostat) 0.4 mg SL Q5MIN PRN PRN Reason: Chest Pain Nystatin (Mycostatin Powder) 1 gm TOP BID PRN PRN Reason: Topical Irritations Ondansetron HCl (Zofran Odt) 4 mg SL Q6H PRN PRN Reason: Nausea/Vomiting Ondansetron HCl (Zofran) 4 mg IVP Q6H PRN PRN Reason: Nausea/Vomiting Polyethylene Glycol (Miralax) 17 gm PO DAILY PRN PRN Reason: Constipation Propylene Glycol (Systane Opth Drop 15ml Bot) 1 drop EA EYE QID [facility] Last Admin: 04/19/18 22:30 Dose: 1 drop Senna/Docusate Sodium (Senokot S) 2 tab PO BID PRN PRN Reason: Constipation Sodium Chloride ([place] Nasal [place] 0.65%) 0 ml EA NARE QIDPRN PRN PRN Reason: Nasal Congestion
--- NOTE | 2018-04-20 10:47 | DIS ---
DATE OF ADMISSION: 04/18/2018 DATE OF DISCHARGE: 04/20/2018 PRIMARY CARE PHYSICIAN: Kelly Pacheco M.D. DISCHARGE DISPOSITION: [facility]. PRIMARY DISCHARGE DIAGNOSES: 1. Acute respiratory failure with hypoxia, likely due to acute on chronic systolic and diastolic con gestive heart failure. 2. Acute on chronic systolic and diastolic congestive heart failure. 3. Somnolence, resolved. 4. Acute on chronic kidney failure, baseline chronic kidney disease stage 4. SECONDARY DISCHARGE DIAGNOSES: Peripheral vascular disease with bilateral amputee, obesity with BMI 35, hypertension, dyslipidemia, diabetes type 2, chronic kidney disease stage 4, chronic combined sys tolic and diastolic heart failure, stage C, coronary artery disease, normocytic normochromic anemia. PRIMARY PROCEDURE AND OPERATION: None. RADIOLOGICAL INVESTIGATION: Chest x-ray showed mild pulmonary vascular congestion. SIGNIFICANT LABORATORY DATA: WBC 6.4, hemoglobin 8.3, platelet of 209, pCO2 of 40.2, O2 65.5, bicarb vikki 20.1. Sodium 140, potassium 4.7, BUN 117, creatinine 4.34, glucose 125, calcium 8.8, magnesium 2.3, B-ferritin 78.02, albumin 3.7. Urinalysis unremarkable. DISCHARGE MEDICATIONS: Lasix 20 mg p.o. daily (dose reduced), amlodipine 5 mg p.o. daily, Lipitor 40 mg p.o. at bedtime, Coreg 25 mg p.o. b.i.d., Colace 100 mg daily, Neurontin 100 mg t.i.d., NovoLog a s per sliding scale, Lantus 25 units subcu in the morning (dose reduced), DuoNeb q.6 hours p.r.n., me latonin 5 mg p.o. at bedtime, Systane eyedrops q.i.d., MiraLax 17 grams p.o. daily, aspirin 81 mg p.o . daily, hydralazine 25 mg t.i.d., Imdur 60 mg p.o. daily. CONTRAINDICATIONS: The patient is not on YEYO inhibitor and ARB, because of renal failure and risk of hyperkalemia and that is why contraindicated. CODE STATUS: DNR. INPATIENT CONSULTANTS: None. TEST RESULTS PENDING ON DISCHARGE: None. ALLERGIES: HYDROCODONE and AMBIEN. DISCHARGE PLAN: Post hospital, the patient is discharged back to [facility]. He will n eed follow up with Nephrology as well as primary care physician follow up. HOSPITAL COURSE: An 78-year-old male with above-mentioned medical problem. Patient was lethargic an d somnolent at assisted. He was hypoxic and that is why patient was sent to emergency room. His chest x-ray showed mild pulmonary vascular congestion. He had elevated BNP. 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 This patient will need outpatient sleep study as well to rule out associated sleep apnea. We at tributed his hypoxia due to acute exacerbation of his chronic systolic and diastolic heart failure, w leonel was treated while in hospital with IV Lasix. Because of IV Lasix, his renal function was gradua lly gotten worse, but he was doing very well. We reduced dose of Lasix upon discharge. This patient may end up with hemodialysis in the near future, he needs to follow up with the Nephrology as an out patient basis. At this point, patient appears to be euvolemic. He is continued to be high risk for recurrent admission from his CHF and other medical issues. This patient was DNR while in hospital. The patient is seen and examined at bedside today. We reduc ed the dose of gabapentin 200 mg t.i.d. and we also reduced dose of Lantus to 25 units subcu daily du ring this admission. Rest of medication will be continued as per above and he will have p.r.n. medic ation as above. Paper work for discharge done. Discharge medication reconciliation done.
[2018-04-20 11:38] VITALS: BP 141/65
== END 2018-04-20 13:48 ==
LOC: ERS 11:21 → 2NO 13:25
PROVIDERS: ADMIT Internal Medicine; ATTEND Internal Medicine
DX: J96.01 Acute respiratory failure with hypoxia (principal); I13.0 Hypertensive heart and chronic kidney disease with heart failure and stage 1 through stage 4 chronic kidney disease, or unspecified chronic kidney disease; E11.22 Type 2 diabetes mellitus with diabetic chronic kidney disease; N18.4 Chronic kidney disease, stage 4 (severe); I50.43 Acute on chronic combined systolic (congestive) and diastolic (congestive) heart failure; D63.1 Anemia in chronic kidney disease; J44.9 Chronic obstructive pulmonary disease, unspecified; I25.5 Ischemic cardiomyopathy; I25.10 Atherosclerotic heart disease of native coronary artery without angina pectoris; G47.30 Sleep apnea, unspecified; E78.5 Hyperlipidemia, unspecified; I73.9 Peripheral vascular disease, unspecified; E87.5 Hyperkalemia; E87.8 Other disorders of electrolyte and fluid balance, not elsewhere classified; E66.9 Obesity, unspecified; Z68.35 Body mass index [BMI] 35.0-35.9, adult; Z66 Do not resuscitate; Z87.891 Personal history of nicotine dependence; Z79.4 Long term (current) use of insulin; Z79.82 Long term (current) use of aspirin; Z79.899 Other long term (current) drug therapy; Z88.5 Allergy status to narcotic agent; Z88.8 Allergy status to other drugs, medicaments and biological substances; Z95.1 Presence of aortocoronary bypass graft; Z89.612 Acquired absence of left leg above knee; Z89.511 Acquired absence of right leg below knee
CPT/HCPCS: 71045; 80053; 80069; 81001; 82553; 82728; 82805; 82962 ×3; 83735 ×2; 83880; 84484; 84550; 85025; 93005; 94640 ×3; 96372; 96374; 96375; 96376 ×2; 99285; G0378 ×2; 36415; 36416; 84443; J1630; J1644; J1940; J2930; J7620

== ENCOUNTER 2018-04-24 19:06 | Inpatient (IN) | payer MEDICARE, MEDICAID ==
[~2018-04-24 19:06] MED LIST: Heparin 1,000 UNITS/ML VIAL ONE; Heparin 10,000 UNITS/ 10 ML VIAL ONE
[2018-04-24 20:02] LABS: #Eosinphils 0.8 thou/uL (0.0-0.7); #Lymphocytes 1.3 thou/uL (1.20-3.40); #Monocytes 0.7 thou/uL (0.11-0.59); #Neutrophils 5.5 thou/uL (1.40-6.50); %Basophils 0.5 % (0.0-1.0); %Eosinophils 9.1 % (0.0-10.0); %Lymphocytes 15.1 % (21.0-51.0); %Monocytes 8.9 % (0.0-10.0); %Neutrophils 66.4 % (42.0-75.0); Hemoglobin 8.8 g/dL (14.0-18.0); Mean Corpuscular HGB CONC 31.9 g/dL (32.0-36.0); Mean Corpuscular Volume 97.4 fL (78.0-98.0); Mean Platelet Volume 8.4 fL (7.4-10.4); Platelet Count 185 thou/uL (130-400); RBC Distribution Width 12.9 % (11.5-14.5); Red Blood Cell (RBC) Count 2.85 mill/uL (4.70-6.10); White Blood Cell (WBC) Count 8.3 thou/uL (4.8-10.8)
[2018-04-24 20:23] LABS: ALT (SGPT) 18 U/L (8-55); AST (SGOT) 11 U/L (5-34); Albumin 3.8 g/dL (3.4-4.8); Alkaline Phosphatase 57 U/L (40-150); Anion Gap 14 mmol/L (10-20); BUN (Urea Nitrogen) 113 mg/dL (8.4-25.7); Bilirubin, Total 0.5 mg/dL (0.2-1.2); Calc. Creatinine Clearance 0 mL/min (70-130); Calcium 8.9 mg/dL (7.8-10.44); Carbon Dioxide 22 mmol/L (23-31); Chloride 113 mmol/L (98-107); Estimated GFR-MDRD 15; Globulin 2.9 g/dL (2.4-3.5); Glucose 182 mg/dL (83-110); Lipase 35 U/L (8-78); Magnesium 2.2 mg/dL (1.6-2.6); Potassium 5.1 mmol/L (3.5-5.1); Protein, Total 6.7 g/dL (5.8-8.1); Sodium 144 mmol/L (136-145)
[2018-04-24 20:27] LABS: CKMB 2.8 ng/mL (0-6.6)
--- NOTE | 2018-04-24 20:33 | RAD ---
SEMIUPRIGHT PORTAL CHEST ONE VIEW: 04/24/18 HISTORY: 78-year-old male with history of shortness of breath. COMPARISON: 04/18/18. FINDINGS: Cardiomegaly with postop midline sternotomy. There is some mild vascular congestion. Slight blunting of the left costophrenic angle. Overall little change from prior study. IMPRESSION: Cardiomegaly with some bilateral vascular congestion and possibly mild interstitial edema. Blunting o f the left costophrenic angle. Little change from prior study, 04/18/18. POS: ROSA
[2018-04-24] MEDS ORDERED: Furosemide 40 MG/4 ML VIAL ONE (21:09)
[2018-04-24] MEDS ORDERED: Aspirin 325 MG TAB PO SCH (23:15)
[2018-04-24 23:51] LABS: Troponin I 0.028 ng/mL (< 0.028)
[2018-04-25 02:43] LABS: Anion Gap 12 mmol/L (10-20); BUN (Urea Nitrogen) 114 mg/dL (8.4-25.7); Calc. Creatinine Clearance 20 mL/min (70-130); Calcium 8.8 mg/dL (7.8-10.44); Carbon Dioxide 23 mmol/L (23-31); Chloride 115 mmol/L (98-107); Estimated GFR-MDRD 14; Glucose 150 mg/dL (83-110); Potassium 4.9 mmol/L (3.5-5.1); Sodium 145 mmol/L (136-145)
[2018-04-25 02:47] LABS: Troponin I 0.027 ng/mL (< 0.028)
[2018-04-25 08:36] LABS: Anion Gap 13 mmol/L (10-20); BUN (Urea Nitrogen) 110 mg/dL (8.4-25.7); Calc. Creatinine Clearance 20 mL/min (70-130); Calcium 8.7 mg/dL (7.8-10.44); Carbon Dioxide 19 mmol/L (23-31); Chloride 116 mmol/L (98-107); Estimated GFR-MDRD 15; Glucose 141 mg/dL (83-110); Sodium 143 mmol/L (136-145)
[2018-04-25] MEDS ORDERED: Polyethylene Glycol 3350 17 GM Packet PO PRN (09:52)
[2018-04-25] MEDS ORDERED: Furosemide 40 MG/4 ML VIAL SLOW IVP SCH (12:15)
[2018-04-25 13:20] LABS: Iron 28 ug/dL (65-175); Iron Binding Capacity, Total 241 mcg/dL (261-462)
--- NOTE | 2018-04-25 14:10 | PDOC.PN ---
- Subjective Encounter Start Date: 04/25/18 Encounter Start Time: 14:09 Subjective: No complains, does not know why he is here, confused, not sure of patients - Objective MAR Reviewed: Yes Vital Signs & Weight: Vital Signs (12 hours) Temp Pulse Resp BP Pulse Ox 04/25/18 08:00 93 L 04/25/18 07:40 97.6 F 55 L 18 165/67 H 93 L 04/25/18 03:29 96.6 F L 54 L 24 H 152/66 H 92 L Weight Weight 215 lb Result Diagrams: 04/24/18 19:54 04/25/18 07:49 Additional Labs: Accuchecks 04/25/18 05:24 POC Glucose 162 H Phys Exam - Physical Examination HEENT: PERRLA, moist MMs, sclera anicteric, TM's clear, oral pharynx no lesions , 2+ tonsils Neck: no nodes, no JVD, supple, full ROM Respiratory: no wheezing, no rales, no rhonchi, clear to auscultation bilateral Cardiovascular: RRR, no significant murmur, no rub, gallop, irregular Gastrointestinal: soft, non-tender, 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, positive bowel sounds Musculoskeletal: pulses present, edema present Confused Dx/Plan (1) Acute respiratory failure with hypoxia Code(s): J96.01 - ACUTE RESPIRATORY FAILURE WITH HYPOXIA Status: Acute Plan: Continue PRN NC oxygen (2) Amputation leg, bilat Code(s): S88.911A - COMPLETE TRAUMATIC AMPUTATION OF R LOW LEG, LEVEL UNSP, INIT ; S88.912A - COMPLETE TRAUMATIC AMPUTATION OF L LOW LEG, LEVEL UNSP, INIT Status: Chronic (3) Anemia, normocytic normochromic Code(s): D64.9 - ANEMIA, UNSPECIFIED Status: Chronic (4) CAD (coronary artery disease) Code(s): I25.10 - ATHSCL HEART DISEASE OF [place] CORONARY ARTERY W/O ANG PCTRS Status: Chronic Qualifiers: (5) CKD (chronic kidney disease) stage 4, GFR 15-29 ml/min Code(s): N18.4 - CHRONIC KIDNEY DISEASE, STAGE 4 (SEVERE) Status: Chronic Comment: (6) Chronic combined systolic and diastolic CHF (congestive heart failure) Code(s): I50.42 - CHRONIC COMBINED SYSTOLIC AND DIASTOLIC HRT FAIL Status: Chronic Comment: may be acute exacerbation, stage C (7) Diabetes mellitus type 2 in obese Code(s): E11.69 - TYPE 2 DIABETES MELLITUS WITH OTHER SPECIFIED COMPLICATION; E66.9 - OBESITY, UNSPECIFIED Status: Chronic (8) HLD (hyperlipidemia) Code(s): E78.5 - HYPERLIPIDEMIA, UNSPECIFIED Status: Chronic Qualifiers: - Plan cont current plan of care, DVT proph w/lovenox, DVT proph w/SCDs (continue current care) * .
[2018-04-25] MEDS: hydrALAZINE 25 MG TAB PO SCH ×2 (14:23→20:54)
[2018-04-25] MEDS: Gabapentin 100 MG CAP PO SCH ×2 (14:24→20:54)
[2018-04-25 15:39] LABS: Anion Gap 15 mmol/L (10-20); BUN (Urea Nitrogen) 111 mg/dL (8.4-25.7); Calc. Creatinine Clearance 20 mL/min (70-130); Calcium 9.1 mg/dL (7.8-10.44); Carbon Dioxide 19 mmol/L (23-31); Chloride 114 mmol/L (98-107); Estimated GFR-MDRD 15; Glucose 222 mg/dL (83-110); Sodium 143 mmol/L (136-145)
[2018-04-25] MEDS ORDERED: Ferrous Sulfate 325 MG TAB PO SCH (17:00)
[2018-04-25] MEDS ORDERED: Dextrose 50% Abboject 50 ML SYRINGE IVP PRN (17:32)
[2018-04-25] MEDS ORDERED: Dextrose 5% in Water 1,000 ML IV PRN (17:32)
[2018-04-25] MEDS ORDERED: IRON SUCROSE COMPLEX 100 MG/5 ML SLOW IVP SCH (18:45)
[2018-04-25] MEDS: HumaLOG 300 UNITS/3 ML VIAL SC PRN ×2 (18:50→22:52)
[2018-04-25] MEDS ORDERED: Iron, Sodium Ferric Gluconate 250 MG in Sodium Chloride 0.9% 100 ML IVPB SCH (20:00)
--- NOTE | 2018-04-25 20:03 | CON ---
DATE OF CONSULTATION: 04/25/2018 CONSULTING PHYSICIAN: Syed Rockwell M.D. REQUESTING PHYSICIAN: Victor M Mitchell D.O. REASON FOR CONSULTATION: Advanced chronic kidney disease/acute on chronic kidney disease. IMPRESSION: 1. Advanced chronic kidney disease. This is likely in the context of diabetic nephropathy. 2. Anemia, likely anemia of chronic kidney disease in addition to iron deficiency. 3. Respiratory distress in the context of pulmonary congestion, possible cardiorenal syndrome. PLAN: 1. Parenteral diuresis with IV Lasix to circumvent the limiting effect of congestive gastroenteropat hy on oral diuretics. 2. Iron infusion to address the component of iron deficiency in this patient. 3. Erythropoiesis stimulating agent to be administered once a week. 4. Renally dose all medications and avoid potentially nephrotoxic agents. 5. The patient to be on low salt diet. HISTORY OF PRESENT ILLNESS: History is that of an 78-year-old gentleman who presented here who was s ent over to the ER with abnormal labs and some shortness of breath. Patient noted with a BUN of 110 and creatinine of up to 4. As a result of this, patient is being admitted. Due to the advanced alesia l failure, decision was taken to involve Renal in the management of this case. Patient denies any ra sh, denies any recent fever, nor any blood in the urine, no frothy urine. PAST MEDICAL HISTORY: Significant for diabetes complicated with peripheral vascular disease, congest tanya heart failure, constipation, COPD, coronary artery disease, frequent UTI, anemia. MEDICATIONS: Reviewed and as documented on [employer]. ALLERGIES: ACETAMINOPHEN, HYDROCODONE, and AMBIEN. REVIEW OF SYSTEMS: As documented in the body of the history. Other systems were reviewed and found not to be significantly related to presenting illness. PHYSICAL EXAMINATION: GENERAL: The patient was found to be in some mild respiratory distress noted with following vital si gns. VITAL SIGNS: Afebrile with temperature 97.6, pulse 58, respiratory 18, O2 saturation 98%, blood pres sure 159/70. HEENT: Unremarkable. Moist oral mucosa. NECK: Supple, no conjunctival injection, no icterus. CARDIOVASCULAR SYSTEM: First and second heart sounds were heard. RESPIRATORY SYSTEM: Clear to auscultation. DIGESTIVE SYSTEM: Revealed a benign abdomen with positive bowel sounds. Digestive system is reviewe d with an obese abdomen. EXTREMITIES: No peripheral edema. SKIN: No new gross rash. LYMPHATICS: No peripheral lymphadenopathy. SUMMARY: An 78-year-old gentleman sent in with abnormal labs with some shortness of breath. Thank you for this consult. We will follow with you.
[2018-04-25] MEDS: Atorvastatin Calcium 40 MG TAB PO SCH (20:55)
[2018-04-25] MEDS: Carvedilol 25 MG TAB PO SCH (20:55)
[2018-04-25] MEDS: Melatonin 3 MG TAB PO SCH (22:50)
[2018-04-26] MEDS ORDERED: Furosemide 40 MG/4 ML VIAL SLOW IVP SCH (06:00)
[2018-04-26] MEDS: Furosemide 40 MG/4 ML VIAL SLOW IVP SCH ×2 (06:37→15:35)
[2018-04-26] MEDS ORDERED: Iron Sucrose Complex 100 MG in Sodium Chloride 0.9% 100 ML IVPB SCH (09:00)
[2018-04-26] MEDS: Iron, Sodium Ferric Gluconate 125 MG in Sodium Chloride 0.9% 100 ML IVPB SCH (09:16)
[2018-04-26] MEDS: Epoetin (ESRD) 20,000 UNITS/ML SC SCH (09:18)
[2018-04-26] MEDS: Amlodipine 5 MG TAB PO SCH (09:21)
[2018-04-26] MEDS: Gabapentin 100 MG CAP PO SCH ×3 (09:22→21:23)
[2018-04-26] MEDS: Carvedilol 25 MG TAB PO SCH ×2 (09:22→21:23)
[2018-04-26] MEDS: hydrALAZINE 25 MG TAB PO SCH ×3 (09:22→21:23)
[2018-04-26] MEDS: Aspirin 81 mg Enteric Coated Tablet PO SCH (09:22)
[2018-04-26] MEDS ORDERED: Insulin Glargine 15 UNITS in Pre-Filled Syringe 1 EACH SC SCH (10:15)
[2018-04-26 10:23] LABS: Anion Gap 13 mmol/L (10-20); BUN (Urea Nitrogen) 105 mg/dL (8.4-25.7); Calc. Creatinine Clearance 21 mL/min (70-130); Calcium 8.8 mg/dL (7.8-10.44); Carbon Dioxide 23 mmol/L (23-31); Chloride 111 mmol/L (98-107); Estimated GFR-MDRD 15; Glucose 194 mg/dL (83-110); Potassium 4.8 mmol/L (3.5-5.1); Sodium 142 mmol/L (136-145)
[2018-04-26] MEDS: HumaLOG 300 UNITS/3 ML VIAL SC PRN (10:43)
--- NOTE | 2018-04-26 13:39 | PDOC.PN ---
- Subjective Encounter Start Date: 04/26/18 Encounter Start Time: 09:00 Subjective: feeling better, requesting PT. On going IV diuresis and IV iron. - Objective Vital Signs & Weight: Vital Signs (12 hours) Temp Pulse Resp BP BP Pulse Ox 04/26/18 09:22 59 L 165/70 H 04/26/18 09:21 59 L 165/70 H 04/26/18 08:00 98.6 F 59 L 18 165/70 H 92 L 04/26/18 04:00 98.4 F 55 L 19 152/72 H 94 L Weight Weight 215 lb I&O: 04/25/18 04/26/18 04/27/18 06:59 06:59 06:59 Intake Total 100 300 Balance 100 300 Result Diagrams: 04/24/18 19:54 04/26/18 09:57 Additional Labs: Accuchecks 04/26/18 04/26/18 04/25/18 10:22 05:28 20:42 POC Glucose 198 H 81 252 H 04/25/18 04/25/18 16:51 10:54 POC Glucose 209 H 155 H Phys Exam - Physical Examination HEENT: PERRLA, moist MMs, sclera anicteric, TM's clear, oral pharynx no lesions , 2+ tonsils Neck: no nodes, no JVD, supple, full ROM Respiratory: no wheezing, no rales, no rhonchi, wheezing present, clear to auscultation bilateral Cardiovascular: RRR, no significant murmur, no rub Gastrointestinal: soft, non-tender, 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, positive bowel sounds Musculoskeletal: no edema, pulses present Neurological: non-focal, normal sensation, moves all 4 limbs Psychiatric: normal affect, A&O x 3 Dx/Plan (1) Acute respiratory failure with hypoxia Code(s): J96.01 - ACUTE RESPIRATORY FAILURE WITH HYPOXIA Status: Acute (2) Amputation leg, bilat Code(s): S88.911A - COMPLETE TRAUMATIC AMPUTATION OF R LOW LEG, LEVEL UNSP, INIT ; S88.912A - COMPLETE TRAUMATIC AMPUTATION OF L LOW LEG, LEVEL UNSP, INIT Status: Chronic (3) Anemia, normocytic normochromic Code(s): D64.9 - ANEMIA, UNSPECIFIED Status: Chronic (4) CAD (coronary artery disease) Code(s): I25.10 - ATHSCL HEART DISEASE OF [place] CORONARY ARTERY W/O ANG PCTRS Status: Chronic Qualifiers: Coronary Disease-Associated Artery/Lesion type: [place] artery Associated angina: without angina (5) CKD (chronic kidney disease) stage 4, GFR 15-29 ml/min Code(s): N18.4 - CHRONIC KIDNEY DISEASE, STAGE 4 (SEVERE) Status: Chronic Comment: acute on chronic renal failure. Rapidly declining renal function. Creatinine increased to 4 from 2 in last 2 years. Renal on board (6) Chronic combined systolic and diastolic CHF (congestive heart failure) Code(s): I50.42 - CHRONIC COMBINED SYSTOLIC AND DIASTOLIC HRT FAIL Status: Chronic Comment: may be acute exacerbation, stage C (7) Diabetes mellitus type 2 in obese Code(s): E11.69 - TYPE 2 DIABETES MELLITUS WITH OTHER SPECIFIED COMPLICATION; E66.9 - OBESITY, UNSPECIFIED Status: Chronic (8) HLD (hyperlipidemia) Code(s): E78.5 - HYPERLIPIDEMIA, UNSPECIFIED Status: Chronic Qualifiers: - Plan cont current plan of care continue home meds * .
--- NOTE | 2018-04-26 17:39 | HP ---
DATE OF ADMISSION: 04/25/2018 CHIEF COMPLAINT: The patient was sent by the patient's PCP, Dr. Pacheco for the elevated BUN and creatinine. The patient also is feeling weak and short of breath with increased urination and abdominal swelling. The patient is on fluid restriction at home and also diuretics, Lasix. 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 PAST SURGICAL HISTORY: Significant for bilateral lower extremity amputation, left AKA and right BKA, history is also significant for hernia repair and history of orthopedic surgery of the lower extremities. PSYCHIATRIC HISTORY: The patient denies any psychiatric history. SOCIAL HISTORY: Denies any alcohol use. He is a former tobacco abuser, which he quit 10 years ago. REVIEW OF SYSTEMS: Constitutional: Denies any fever or chills. HEENT: No pain in the eye. No eye discharge. Atraumatic, normocephalic head. No complaints of runny nose or sore throat. Cardiovascular: Denies any chest pain or palpitation. Respiratory: Complains of shortness of breath, denies any cough. Gastrointestinal: Negative for any GI symptoms. No nausea, vomiting or diarrhea or constipation. Genitourinary: The patient is complaining of increased urine output. Denies any dysuria or hematuria. Musculoskeletal: Complains of increasing swelling in the lower extremities. PHYSICAL EXAMINATION: VITAL SIGNS: On admission, blood pressure is 114/51, pulse 60, temperature 98.4 , O2 sat on room air is around 92. CONSTITUTIONAL: The patient is a little tired. Complains of fatigue. HEENT: Normocephalic, atraumatic head. Eye examination is within normal limits. Conjunctivae and eyelids are within normal limits. Pupils are round and reactive to light. Both external canals and external ears are within normal limits. NECK: Within normal limits. Trachea is midline with good range of motion. RESPIRATORY AND CHEST: Examination is within normal limits. No respiratory distress. +4 rales. CARDIOVASCULAR: Assessment is normal. Regular rate and rhythm, S1 and S2 within normal limits. No murmurs. No gallops. ABDOMEN: Obese abdomen, nontender, 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, no mass. No pulsatile masses. No peritoneal signs or guarding or rigidity. EXTREMITIES: Lower extremities, right BKA and left AKA. No significant edema is seen on the thighs. LABORATORY DATA: On admission, the patient's WBC was 8.3, hemoglobin was low at 8.8 and BUN 113, creatinine 4 and beta natriuretic peptide is 1272 and PTH elevated at 135.2. ASSESSMENT AND PLAN: 1. Acute over chronic kidney disease. Rapidly declining renal function. Creatinine has increased to 4 from 2 in the last 2 years. Renal has been consulted. 2. Acute respiratory failure with hypoxemia, which is responding to diuresis. 3. Normochromic normocytic anemia. He is being treated with IV iron and epoetin. 4. History of coronary artery disease. Continue with the home medications. 5. Hyperlipidemia. Continue with the home medication. MTDD
[2018-04-26] MEDS: Melatonin 3 MG TAB PO SCH (21:23)
[2018-04-26] MEDS: Atorvastatin Calcium 40 MG TAB PO SCH (21:24)
[2018-04-27 06:03] LABS: Anion Gap 16 mmol/L (10-20); BUN (Urea Nitrogen) 109 mg/dL (8.4-25.7); Calc. Creatinine Clearance 19 mL/min (70-130); Calcium 9.1 mg/dL (7.8-10.44); Carbon Dioxide 23 mmol/L (23-31); Chloride 108 mmol/L (98-107); Estimated GFR-MDRD 14; Glucose 116 mg/dL (83-110); Potassium 4.6 mmol/L (3.5-5.1); Sodium 142 mmol/L (136-145)
[2018-04-27] MEDS: Furosemide 40 MG/4 ML VIAL SLOW IVP SCH ×2 (06:42→14:44)
--- NOTE | 2018-04-27 07:50 | PDOC.PN ---
- Subjective Encounter Start Date: 04/27/18 Encounter Start Time: 07:48 Subjective: oriented to person only, no distress - Objective MAR Reviewed: Yes Vital Signs & Weight: Vital Signs (12 hours) Temp Pulse Resp BP Pulse Ox 04/27/18 04:00 98.4 F 58 L 19 155/70 H 92 L 04/26/18 21:23 58 L Weight Weight 211 lb 11.2 oz I&O: 04/26/18 04/27/18 04/28/18 06:59 06:59 06:59 Intake Total 100 1090 Output Total 1575 Balance 100 -485 Result Diagrams: 04/24/18 19:54 04/27/18 05:31 Additional Labs: Accuchecks 04/27/18 04/26/18 04/26/18 05:49 20:11 16:50 POC Glucose 121 H 211 H 135 H 04/26/18 10:22 POC Glucose 198 H Phys Exam - Physical Examination Neck: no JVD post rales in bases, jaya ant. Cardiovascular: RRR, no significant murmur Gastrointestinal: soft, 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, positive bowel sounds Musculoskeletal: edema present Dx/Plan (1) Acute respiratory failure with hypoxia Code(s): J96.01 - ACUTE RESPIRATORY FAILURE WITH HYPOXIA Status: Acute Comment: Continue gentle diuresis. With rapidly declining renal function patient may benifit from dialysis soon. IV iron and plans for erythropoietin to address anemia (2) Amputation leg, bilat Code(s): S88.911A - COMPLETE TRAUMATIC AMPUTATION OF R LOW LEG, LEVEL UNSP, INIT ; S88.912A - COMPLETE TRAUMATIC AMPUTATION OF L LOW LEG, LEVEL UNSP, INIT Status: Chronic Comment: Patient requesting for PT. With BL LE amputation and no availability of prosthesis, PT might be limited (3) Anemia, normocytic normochromic Code(s): D64.9 - ANEMIA, UNSPECIFIED Status: Chronic Comment: IV iron, Erythropoetin to address iron deficiency and anemia of chronic disease (4) CAD (coronary artery disease) Code(s): I25.10 - ATHSCL HEART DISEASE OF [place] CORONARY ARTERY W/O ANG PCTRS Status: Chronic Qualifiers: Coronary Disease-Associated Artery/Lesion type: [place] artery Associated angina: without angina (5) CKD (chronic kidney disease) stage 4, GFR 15-29 ml/min Code(s): N18.4 - CHRONIC KIDNEY DISEASE, STAGE 4 (SEVERE) Status: Chronic Comment: acute on chronic renal failure. Rapidly declining renal function. Creatinine increased to 4 from 2 in last 2 years. Renal on board (6) Chronic combined systolic and diastolic CHF (congestive heart failure) Code(s): I50.42 - CHRONIC COMBINED SYSTOLIC AND DIASTOLIC HRT FAIL Status: Chronic Comment: may be acute exacerbation, stage C (7) Diabetes mellitus type 2 in obese Code(s): E11.69 - TYPE 2 DIABETES MELLITUS WITH OTHER SPECIFIED COMPLICATION; E66.9 - OBESITY, UNSPECIFIED Status: Chronic (8) HLD (hyperlipidemia) Code(s): E78.5 - HYPERLIPIDEMIA, UNSPECIFIED Status: Chronic Qualifiers: (9) HTN (hypertension) Code(s): I10 - ESSENTIAL (PRIMARY) HYPERTENSION Status: Chronic Qualifiers: (10) Obesity (BMI 30-39.9) Code(s): E66.9 - OBESITY, UNSPECIFIED Status: Chronic (11) PVD (peripheral vascular disease) Code(s): I73.9 - PERIPHERAL VASCULAR DISEASE, UNSPECIFIED Status: Chronic - Plan will discuss with renal, cardiology -: cont iv diuresis. cont ASA, coreg, statin, imdur -: cont accu/ss/etc * .
[2018-04-27] MEDS: Gabapentin 100 MG CAP PO SCH ×3 (08:32→20:56)
[2018-04-27] MEDS: Carvedilol 25 MG TAB PO SCH ×2 (08:32→20:56)
[2018-04-27] MEDS: Insulin Glargine 15 UNITS in Pre-Filled Syringe 1 EACH SC SCH (08:32)
[2018-04-27] MEDS: Iron, Sodium Ferric Gluconate 125 MG in Sodium Chloride 0.9% 100 ML IVPB SCH (08:33)
[2018-04-27] MEDS: Amlodipine 5 MG TAB PO SCH (08:40)
[2018-04-27] MEDS: Aspirin 81 mg Enteric Coated Tablet PO SCH (08:40)
[2018-04-27] MEDS: hydrALAZINE 25 MG TAB PO SCH ×3 (08:40→20:56)
[2018-04-27] MEDS: HumaLOG 300 UNITS/3 ML VIAL SC PRN ×2 (12:19→20:57)
--- NOTE | 2018-04-27 19:03 | CON ---
DATE OF CONSULTATION: 04/27/2018 REASON FOR CONSULTATION: Diastolic heart failure. HISTORY OF PRESENT ILLNESS: Mr. Mancera is an 78-year-old gentleman, is a patient of Dr. Bull bernal. He recently presented with shortness of breath and elevated creatinine. He states shortness of breath has been over the last several days. No chest pain or pressure noted. No other ameliorati ng, exacerbating, or precipitating factors present. Patient does have a history of a diastolic funct ion. PAST MEDICAL HISTORY: PVD status post bilateral lower extremity amputation, diastolic heart failure, anemia, hypertension, chronic kidney disease, diabetes mellitus, CAD, encephalopathy, hyperlipidemia , COPD, hernia repair, orthopedic surgery. SOCIAL HISTORY: No current tobacco or alcohol use. He previously smoked. REVIEW OF SYSTEMS: Ten-point review of systems was reviewed and is as above, negative. PHYSICAL EXAMINATION: GENERAL: Patient is a pleasant male who is in no acute distress. The patient appears his stated age. VITAL SIGNS: Blood pressure , pulse 86, temperature 98. NEUROLOGIC: The patient is alert and oriented times 3 with no focal neurologic deficits. HEENT: Sclerae without icterus. Mouth has moist mucous membranes with normal pallor. NECK: No JVD. Carotid upstroke brisk. No bruits bilaterally. LUNGS: Clear to auscultation with unlabored respirations. BACK: No scoliosis or kyphosis. CARDIAC: Regular rate and rhythm with normal S1 and S2. No S3 or S4 noted. No significant rubs, murmurs, thrills, or gallops noted throughout the precordium. PMI is not displa toby. There is no parasternal heave. ABDOMEN: Soft, nontender, nondistended. No peritoneal signs present. No hepatosplenomegaly. No abnormal striae. EXTREMITIES: 2+ femoral and 2+ dorsalis pedis pulses. No cyanosis, clubbing, or edema. SKIN: No gross abnormalities. PERTINENT LABS: Hemoglobin 8.8, creatinine 4.12 which does not appear to be far from his baseline. IMPRESSION: 1. Shortness of breath. 2. Diastolic heart failure. 3. Severe peripheral vascular disease status post amputation. 4. Acute on chronic kidney disease. RECOMMENDATIONS: Patient does have overall LVEF, it appears normal on recent echo. His likely prima ry issue is underlying kidney disease. Diastolic dysfunction can certainly worsen the above. At thi s point, I recommend supportive care. Nephrology has been consulted. They placed him on IV Lasix. We will continue carvedilol in addition to aspirin and amlodipine. Otherwise, the recommendation for Dr. Bull Mccray in a.m.
[2018-04-27] MEDS: Melatonin 3 MG TAB PO SCH (20:56)
[2018-04-27] MEDS: Atorvastatin Calcium 40 MG TAB PO SCH (20:56)
[2018-04-28] MEDS: Furosemide 40 MG/4 ML VIAL SLOW IVP SCH ×2 (06:11→16:22)
--- NOTE | 2018-04-28 07:30 | PDOC.PN ---
- Subjective Encounter Start Date: 04/28/18 Encounter Start Time: 07:29 Subjective: nosob,chest pain - Objective MAR Reviewed: Yes Vital Signs & Weight: Vital Signs (12 hours) Temp Pulse Resp BP Pulse Ox 04/28/18 04:00 98.4 F 56 L 18 169/79 H 97 04/27/18 20:56 97 04/27/18 20:50 98 F 61 20 163/72 H 97 Weight Weight 204 lb 8 oz I&O: 04/27/18 04/28/18 04/29/18 06:59 06:59 06:59 Intake Total 1090 1344 Output Total 1575 775 Balance -485 569 Result Diagrams: 04/24/18 19:54 04/27/18 05:31 Additional Labs: Accuchecks 04/28/18 04/27/18 04/27/18 06:23 20:33 16:59 POC Glucose 196 H 256 H 131 H 04/27/18 10:38 POC Glucose 232 H Phys Exam - Physical Examination Neck: no JVD Respiratory: clear to auscultation bilateral Cardiovascular: RRR, no significant murmur Gastrointestinal: soft, positive bowel sounds Musculoskeletal: no edema Dx/Plan (1) Acute respiratory failure with hypoxia Code(s): J96.01 - ACUTE RESPIRATORY FAILURE WITH HYPOXIA Status: Acute Comment: Continue gentle diuresis. With rapidly declining renal function patient may benifit from dialysis soon. IV iron and plans for erythropoietin to address anemia (2) Amputation leg, bilat Code(s): S88.911A - COMPLETE TRAUMATIC AMPUTATION OF R LOW LEG, LEVEL UNSP, INIT ; S88.912A - COMPLETE TRAUMATIC AMPUTATION OF L LOW LEG, LEVEL UNSP, INIT Status: Chronic Comment: Patient requesting for PT. With BL LE amputation and no availability of prosthesis, PT might be limited (3) Anemia, normocytic normochromic Code(s): D64.9 - ANEMIA, UNSPECIFIED Status: Chronic Comment: IV iron, Erythropoetin to address iron deficiency and anemia of chronic disease (4) CAD (coronary artery disease) Code(s): I25.10 - ATHSCL HEART DISEASE OF [place] CORONARY ARTERY W/O ANG PCTRS Status: Chronic Qualifiers: Coronary Disease-Associated Artery/Lesion type: [place] artery Associated angina: without angina (5) CKD (chronic kidney disease) stage 4, GFR 15-29 ml/min Code(s): N18.4 - CHRONIC KIDNEY DISEASE, STAGE 4 (SEVERE) Status: Chronic Comment: acute on chronic renal failure. Rapidly declining renal function. Creatinine increased to 4 from 2 in last 2 years. Renal on board (6) Chronic combined systolic and diastolic CHF (congestive heart failure) Code(s): I50.42 - CHRONIC COMBINED SYSTOLIC AND DIASTOLIC HRT FAIL Status: Chronic Comment: may be acute exacerbation, stage C (7) Diabetes mellitus type 2 in obese Code(s): E11.69 - TYPE 2 DIABETES MELLITUS WITH OTHER SPECIFIED COMPLICATION; E66.9 - OBESITY, UNSPECIFIED Status: Chronic (8) HLD (hyperlipidemia) Code(s): E78.5 - HYPERLIPIDEMIA, UNSPECIFIED Status: Chronic Qualifiers: (9) HTN (hypertension) Code(s): I10 - ESSENTIAL (PRIMARY) HYPERTENSION Status: Chronic Qualifiers: (10) Obesity (BMI 30-39.9) Code(s): E66.9 - OBESITY, UNSPECIFIED Status: Chronic (11) PVD (peripheral vascular disease) Code(s): I73.9 - PERIPHERAL VASCULAR DISEASE, UNSPECIFIED Status: Chronic - Plan much improved,cont iv diuresis,etc -: discuss with Dr Marcus * .
[2018-04-28] MEDS: Gabapentin 100 MG CAP PO SCH ×3 (09:32→20:47)
[2018-04-28] MEDS: hydrALAZINE 25 MG TAB PO SCH ×3 (09:32→20:47)
[2018-04-28] MEDS: Aspirin 81 mg Enteric Coated Tablet PO SCH (09:32)
[2018-04-28] MEDS: Carvedilol 25 MG TAB PO SCH ×2 (09:33→20:47)
[2018-04-28] MEDS: Iron, Sodium Ferric Gluconate 125 MG in Sodium Chloride 0.9% 100 ML IVPB SCH (09:33)
[2018-04-28] MEDS: Amlodipine 5 MG TAB PO SCH (09:33)
[2018-04-28] MEDS: Insulin Glargine 15 UNITS in Pre-Filled Syringe 1 EACH SC SCH (09:34)
[2018-04-28] MEDS: HumaLOG 300 UNITS/3 ML VIAL SC PRN ×3 (11:52→21:09)
--- NOTE | 2018-04-28 12:25 | PDOC.EVN ---
Event Note - Event Note Event Note: DrTan to see re initiation of HD
--- NOTE | 2018-04-28 13:10 | DIS ---
DATE OF ADMISSION: 04/24/2018 DATE OF DISCHARGE: 04/28/2018 TRANSFER OF CARE PRIMARY CARE PROVIDER: Kelly Pacheco M.D. DISPOSITION: Discharged back to [facility]. FINAL DIAGNOSES: Acute on chronic diastolic heart failure, hypertension, dyslipidemia, acute respira tory failure with hypoxemia, cardiomyopathy, diabetes mellitus type 2. DISCHARGE MEDICATIONS: DuoNeb 3 mL q.6 hours p.r.n., Norvasc 5 mg a day, aspirin 81 mg a day, Lipito r 40 mg a day, Coreg 25 mg twice a day, Lasix 40 mg twice a day, Lantus 25 units in the morning, Imdu r 60 mg a day, Apresoline 25 mg p.o. b.i.d. and NovoLog after meals. ALLERGIES: TYLENOL, HYDROCODONE and AMBIEN. DIET: Low sodium, diabetic. CODE STATUS: Full. PENDING AT THE TIME OF DISCHARGE: Nothing. HOSPITAL COURSE: The patient admitted to the [facility] through [facility] room, presented weak and short of breath. He was found to have marked drop in his renal functio n, acute respiratory failure with hypoxemia. Chest x-ray revealed pulmonary vascular congestion. Th e patient was seen in consultation by Dr. Syed Rockwell, Nephrology and Dr. Stuart Lunsford, Cardiology. He had an echocardiogram, which revealed EF of 50. His diuretic dose was increased. Hi s renal function remained chronic kidney disease stage 5 during his hospital stay. No further recomm endations . He is being transferred back to [facility]. He needs to be followed up for initiation with his PCP in 1 week. He needs to be followed up by his public works laborer, Dr. Melanie Sainz for the initiation of hemodialysis soon. No procedures done during this hospital stay.
--- NOTE | 2018-04-28 17:45 | PRG ---
DATE OF SERVICE: 04/28/2018 SUBJECTIVE: Mr. Mancera is an 78-year-old white male who was admitted for congestive heart failure and at the same time has worsening renal dysfunction. He is being followed up by Renal clinic for hi s chronic renal failure. The patient was in CHF and was put on diuretics and worsened his alesia l function. We are now following him up for initiation of dialysis. I did had a long discussion wit h the patient and her 2 daughters, Richelle and Jagruti, and they have agreed to try dialysis. [facility] line [facility]. VITAL SIGNS: Blood pressure 141/63, heart rate 55, respiratory rate 16, temperature 97.9, pulse ox 9 7%. GENERAL: Awake, alert, comfortable, supine, obese. SKIN: Adequate turgor. HEENT: He has pinkish conjunctivae, anicteric sclerae. NECK: No neck mass, no carotid bruits, no JVD. LUNGS: Decreased breath sounds, no wheezing. HEART: Normal sinus rhythm. No murmur, no gallops, no rubs. ABDOMEN: Globular, soft, nontender, no masses. EXTREMITIES: Trace edema on the thigh, status post bilateral amputation. MEDICATIONS: Of April 28, 2018, reviewed. LABORATORY DATA: Laboratories of April 24, 2018, white count 8.2, hemoglobin 8.8. April 27 018, sodium 142, potassium 4.6, chloride 108, carbon dioxide 23, BUN 109, creatinine 4.12, calcium 9. 1. ASSESSMENT AND PLAN: 1. Chronic renal failure, worsening renal dysfunction. GFR is 14 mL per minute. The patient also h as congestive heart failure. Our plan is to initiate dialysis. We will consult Surgery. The patien jelani has agreed to proceed with dialysis. The daughter, Jagruti, has agreed to the dialysis with this pat ient. 2. Anemia, on weekly Epogen. 3. Congestive heart failure. Max out fluid removal with the dialysis.
[2018-04-28] MEDS ORDERED: Tuberculin PPD 0.1 ML VIAL I-DERMAL SCH (18:00)
[2018-04-28] MEDS ORDERED: CEFAZOLIN/Water 2 GM/20 ML SYRINGE SLOW IVP SCH (18:30)
[2018-04-28] MEDS ORDERED: CEFAZOLIN 2 GM/50 ML-DEXTROSE 2 GM in Premix Bag 1 BAG IVPB SCH (18:45)
[2018-04-28 20:21] LABS: HBSAg Index 0.19 S/CO (0-0.99); Hep B Surf Ag Non-Reactive S/CO (NonReactive)
[2018-04-28] MEDS: Atorvastatin Calcium 40 MG TAB PO SCH (20:47)
[2018-04-28] MEDS: Melatonin 3 MG TAB PO SCH (20:48)
--- NOTE | 2018-04-28 21:50 | HP ---
HISTORY OF PRESENT ILLNESS: An 78-year-old male patient admitted by Hospitalist, seen by Dr. Sainz, co nsult by Dr. Lunsford, followed by Dr. Mccray, Cardiology. Patient is bilateral amputee, right be low, left [id number] amputation with hypertension, diabetes with nephropathy, end-stage renal dis ease. I have been asked to see him regarding initiation of dialysis. We will plan placement of hemo dialysis catheter and a right or left arm fistula. He is right handed. Ultrasound vein mapping has been ordered. Urgently, we will plan this tomorrow. N.p.o. after midnight. ALLERGIES: HYDROCODONE. TOBACCO: None. SOCIAL HISTORY: Patient is a residential resident. He is . 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 Alcohol: None. Tobacco cessation 10 years ago. PAST SURGICAL HISTORY: Bilateral lower extremity amputations, right below, left [id number] amput ation. There is mention in the history and physical having a hernia repair, he denies this. He has had a coronary artery bypass grafting many years ago, quadruple bypass he reports. PAST MEDICAL HISTORY: Diastolic dysfunction echocardiogram, normal wall motion, recently normal EF, hypertension, diabetes, COPD, CKD, lower extremity amputation, right below, left [id number] amput ation. PHYSICAL EXAMINATION: VITAL SIGNS: 5 feet 11 inches, 204 pounds, 28 BMI, temperature 97.9, blood pressure 141/63. LUNGS: Clear to auscultation, no wheezing. CARDIAC: Regular rate and rhythm. Sternotomy scar. ABDOMEN: Soft, nontender, no scars. Protuberant, firm abdomen. No masses, no guarding. EXTREMITIES: Amputations as noted above. LABORATORY DATA: White count 8, hemoglobin 8.8. Sodium 142, potassium 4.6, BUN . 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 PLAN: Placement of a hemodialysis catheter and left arm fistula pinning vein mapping. Darlene antunez.
--- NOTE | 2018-04-28 22:36 | ULT ---
BILATERAL UPPER EXTREMITY VENOUS MAPPIN04/28/18 HISTORY: End-stage renal disease. Multiple longitudinal and transverse images of the right and left upper extremity venous systems are obtained using a multihertz linear array transducer. Real time, color flow and spectral waveform dopp ler analysis demonstrates no evidence of acute or old clot seen in the right or left subclavian veins and upper extremity veins. The following measurements are present. RIGHT UPPER EXTREMITY BRACHIAL ARTERY: 6.0 mm RADIAL ARTERY: 3.0 mm ULNAR ARTERY: 1.5 mm CEPHALIC VEIN Proximal Humeral: 3.7 mm Mid Humeral: 4.1 mm Distal Humeral: 5.3 mm Antecubital Fossa: 5.7 mm Proximal Forearm: 2.9 mm Mid Forearm: 2.4 mm Distal Forearm: 1.3 mm BASILIC VEIN Proximal Humeral: 5.0 mm Mid Humeral: 3.2 mm Distal Humeral: 2.6 mm Antecubital Fossa: 2.4 mm Proximal Forearm: 2.1 mm Mid Forearm: 2.2 mm Distal Forearm: 1.7 mm LEFT UPPER EXTREMITY BRACHIAL ARTERY: 6.0 mm RADIAL ARTERY: 2.7 mm ULNAR ARTERY: 2.0 mm CEPHALIC VEIN Proximal Humeral: 4.1 mm Mid Humeral: 4.0 mm Distal Humeral: 3.5 mm Antecubital Fossa: 4.1 mm Proximal Forearm: 2.4 mm Mid Forearm: 3.1 mm Distal Forearm: 2.4 mm BASILIC VEIN Proximal Humeral: 6.2 mm Mid Humeral: 4.1 mm Distal Humeral: 3.5 mm Antecubital Fossa: 3.4 mm Proximal Forearm: 2.6 mm Mid Forearm: 2.3 mm Distal Forearm: 1.3 mm IMPRESSION: Right and left upper extremity venous and arterial measurements as given above. POS: [facility]
[2018-04-29] MEDS: Furosemide 40 MG/4 ML VIAL SLOW IVP SCH ×2 (05:18→14:58)
--- NOTE | 2018-04-29 07:30 | PDOC.PN ---
- Subjective Encounter Start Date: 04/29/18 Encounter Start Time: 07:29 Subjective: no sob,etc - Objective MAR Reviewed: Yes Vital Signs & Weight: Vital Signs (12 hours) Temp Pulse Resp BP Pulse Ox 04/29/18 04:00 98.9 F 56 L 20 158/65 H 97 04/28/18 20:50 97 04/28/18 19:50 97.9 F 57 L 20 150/66 H 97 Weight Weight 207 lb 1.6 oz I&O: 04/28/18 04/29/18 04/30/18 06:59 06:59 06:59 Intake Total 1344 1324 Output Total 775 800 Balance 569 524 Result Diagrams: 04/24/18 19:54 04/27/18 05:31 Additional Labs: Accuchecks 04/29/18 04/28/18 04/28/18 05:20 20:54 17:14 POC Glucose 137 H 234 H 252 H 04/28/18 11:33 POC Glucose 294 H Phys Exam - Physical Examination Neck: no JVD basilar rales Cardiovascular: RRR, no significant murmur Gastrointestinal: soft, positive bowel sounds Musculoskeletal: edema present Dx/Plan (1) Acute respiratory failure with hypoxia Code(s): J96.01 - ACUTE RESPIRATORY FAILURE WITH HYPOXIA Status: Acute Comment: Continue gentle diuresis. With rapidly declining renal function patient may benifit from dialysis soon. IV iron and plans for erythropoietin to address anemia (2) Amputation leg, bilat Code(s): S88.911A - COMPLETE TRAUMATIC AMPUTATION OF R LOW LEG, LEVEL UNSP, INIT ; S88.912A - COMPLETE TRAUMATIC AMPUTATION OF L LOW LEG, LEVEL UNSP, INIT Status: Chronic Comment: Patient requesting for PT. With BL LE amputation and no availability of prosthesis, PT might be limited (3) Anemia, normocytic normochromic Code(s): D64.9 - ANEMIA, UNSPECIFIED Status: Chronic Comment: IV iron, Erythropoetin to address iron deficiency and anemia of chronic disease (4) CAD (coronary artery disease) Code(s): I25.10 - ATHSCL HEART DISEASE OF [place] CORONARY ARTERY W/O ANG PCTRS Status: Chronic Qualifiers: Coronary Disease-Associated Artery/Lesion type: [place] artery Associated angina: without angina (5) CKD (chronic kidney disease) stage 4, GFR 15-29 ml/min Code(s): N18.4 - CHRONIC KIDNEY DISEASE, STAGE 4 (SEVERE) Status: Chronic Comment: acute on chronic renal failure. Rapidly declining renal function. Creatinine increased to 4 from 2 in last 2 years. Renal on board (6) Chronic combined systolic and diastolic CHF (congestive heart failure) Code(s): I50.42 - CHRONIC COMBINED SYSTOLIC AND DIASTOLIC HRT FAIL Status: Chronic Comment: may be acute exacerbation, stage C (7) Diabetes mellitus type 2 in obese Code(s): E11.69 - TYPE 2 DIABETES MELLITUS WITH OTHER SPECIFIED COMPLICATION; E66.9 - OBESITY, UNSPECIFIED Status: Chronic (8) HLD (hyperlipidemia) Code(s): E78.5 - HYPERLIPIDEMIA, UNSPECIFIED Status: Chronic Qualifiers: (9) HTN (hypertension) Code(s): I10 - ESSENTIAL (PRIMARY) HYPERTENSION Status: Chronic Qualifiers: (10) Obesity (BMI 30-39.9) Code(s): E66.9 - OBESITY, UNSPECIFIED Status: Chronic (11) PVD (peripheral vascular disease) Code(s): I73.9 - PERIPHERAL VASCULAR DISEASE, UNSPECIFIED Status: Chronic - Plan HD catheter placement,initate HD -: cont asa,statin coreg- no EYYO<ARB renal failure -: cont accu/sslong acting insulin * .
--- NOTE | 2018-04-29 08:59 | PRG ---
DATE OF SERVICE: 04/29/2018 SUBJECTIVE: Mr. Mancera is an 78-year-old white male with known history of chronic renal failure an d was admitted for congestive heart failure. During this hospitalization, he was diuresed. However, renal function has worsened. His GFR has significantly dropped to a most recent value of 14 mL per minute with a creatinine 4.12 and a BUN of 109. I had a long discussion with the patient and the fam clifton. They have agreed to proceed with hemodialysis. I have consulted Surgery for placement of cuffe d hemodialysis catheter. Currently, the patient is with mild shortness of breath, no chest pain, no syncopal episode. PHYSICAL EXAMINATION: VITAL SIGNS: Blood pressure 158/65, heart rate 56, respiratory rate 20, temperature 98.9, pulse ox 9 7%. GENERAL: Noted to be awake, alert, comfortable, not in overt distress. SKIN: Adequate turgor. HEENT: Slightly pale conjunctivae, anicteric sclerae. NECK: No neck mass, no carotid bruits, no JVD. CHEST: No deformities. LUNGS: Decreased breath sounds. Occasional wheezing. HEART: Normal sinus rhythm. No murmur, no gallops, no rubs. ABDOMEN: Globular, soft, nontender, no masses. EXTREMITIES: Bilateral leg amputation. MEDICATIONS: 04/29/2018 - Reviewed. LABORATORY DATA: 04/27/2018 - BUN 109, creatinine 4.12, potassium 4.6, hemoglobin 8.8. ASSESSMENT AND PLAN: 1. Congestive heart failure, currently on diuretic regimen. Stabilizing congestive heart failure. Cardiology is following. 2. Chronic renal failure, worsening renal dysfunction. We will initiate hemodialysis with this roverto ent due to the progressive azotemia and volume overload. Surgical consult has been done. 3. Anemia. Continue weekly Epogen. Recheck base met and CBC in a.m.
[2018-04-29] MEDS: Amlodipine 5 MG TAB PO SCH (09:13)
[2018-04-29] MEDS: hydrALAZINE 25 MG TAB PO SCH ×3 (09:13→21:05)
[2018-04-29] MEDS: Gabapentin 100 MG CAP PO SCH ×3 (09:13→21:05)
[2018-04-29] MEDS: Carvedilol 25 MG TAB PO SCH ×2 (09:14→21:08)
[2018-04-29] MEDS: Insulin Glargine 15 UNITS in Pre-Filled Syringe 1 EACH SC SCH (09:14)
[2018-04-29] MEDS: Aspirin 81 mg Enteric Coated Tablet PO SCH (09:14)
[2018-04-29] MEDS ORDERED: CEFAZOLIN/Water 2 GM/20 ML SYRINGE SLOW IVP SCH (10:30)
[2018-04-29] MEDS ORDERED: CEFAZOLIN 2 GM/50 ML-DEXTROSE 2 GM in Premix Bag 1 BAG IVPB SCH (10:45)
[2018-04-29] MEDS ORDERED: Lidocaine 1% PF 5 ML VIAL ONE (17:30)
[2018-04-29] MEDS ORDERED: PROPOFOL 200 MG/20 ML VIAL ONE (17:30)
[2018-04-29] MEDS ORDERED: Bupivacaine HCl 0.5%/Epinephrine 1:200,000/PF 30 ml Vial ONE (18:18)
[2018-04-29] MEDS ORDERED: Heparin 10,000 UNITS/1 ML VIAL ONE (18:18)
[2018-04-29] MEDS ORDERED: Sodium Chloride 0.9% 10 ML ONE (18:18)
[2018-04-29] MEDS ORDERED: Fentanyl 100 MCG/2 ML VIAL ONE (18:33)
[2018-04-29] MEDS ORDERED: Lidocaine 2% PF 5 ML VIAL ONE (18:48)
[2018-04-29] MEDS ORDERED: Sodium Chloride 0.9% 20 ML ONE (18:53)
--- NOTE | 2018-04-29 19:54 | RAD ---
AP VIEW CHEST 04/29/18 HISTORY: Chest pain. Placement of hemodialysis catheter. AP view chest is obtained on 04/29/18. Comparison made to previous exam from 04/24/18. AP view chest demonstrates a left jugular central line. Distal tip overlying the SVC. There has been placement of a right jugular dialysis catheter. Distal tip overlying the SVC. Cardiomegaly seen. Pulmonary vascular congestion seen. No evidence of effusions, pneumonia or pneumothorax seen. IMPRESSION: Cardiomegaly and calcification of the aorta. POS: [facility]
[2018-04-29] MEDS: traMADol HCl 50 MG TAB PO PRN (21:04)
[2018-04-29] MEDS: Atorvastatin Calcium 40 MG TAB PO SCH (21:07)
[2018-04-29] MEDS: Melatonin 3 MG TAB PO SCH (21:09)
--- NOTE | 2018-04-30 01:42 | OP ---
DATE OF PROCEDURE: 04/29/2018 PREOPERATIVE DIAGNOSES: End-stage renal disease, bilateral amputee, need of acute dialysis access, p oor IV access. POSTOPERATIVE DIAGNOSES: End-stage renal disease, bilateral amputee, need of acute dialysis access, poor IV access. PROCEDURES: Right IJ cuffed tunnel hemodialysis catheter, precurved angiodynamics, left IJ central l ine, ultrasound fluoroscopy used. SURGEON: Dr. Philip Mirza ANESTHESIA: TIVA, local 0.5% Marcaine with epinephrine 30 mL mixed with 2% Xylocaine, 10 mL. PROCEDURE: The patient was taken to the operating room where under intravenous sedation, neck and ch est prepared with ChloraPrep, draped in routine fashion. Local anesthetic infiltrated into skin and subcutaneus tissue about the operative site. Using ultrasound guidance, the right and left internal jugular veins were cannulated with trocar catheter. J-wire was threaded. Trocar catheter removed. Skin incised and enlarged sharply on both sides. Stab incision was made in the right chest. Using S eldinger technique, a triple-lumen catheter placed in the left internal jugular vein and secured with 2 interrupted sutures of 3-0 nylon. Biopatch sterile dressing applied. Each port aspirated blood a nd flushed with saline solution. J-wire had been removed. On the right side using the tunneling dev ice, precurved angiodynamics cuffed tunnel hemodialysis catheter tunneled between the two incisions, placing the fabric cuff beneath the skin exit site. Smaller medium size dilators placed over the J-w luciana into the internal jugular vein removed. Dilator and pull-away sheath placed over the J-wire in t he superior vena cava and dilator and J-wire removed. Catheter placed with pull-away sheath. Pull-a way sheath removed. Fluoroscopic images revealed good line placement on both sides. Each platysma a pproximated with 4-0 Monocryl, skin with subdermal 4-0 Monocryl. Dermal glue sterile dressings appli ed. Each port aspirated blood and flushed saline solution. Heparinized saline solution 1000 units h eparin per mL indicated volume of the port.
[2018-04-30] MEDS ORDERED: Morphine 2 MG/ML SYRINGE SLOW IVP SCH (02:45)
[2018-04-30 06:01] LABS: #Eosinphils 0.7 thou/uL (0.0-0.7); #Lymphocytes 1.3 thou/uL (1.20-3.40); #Neutrophils 5.9 thou/uL (1.40-6.50); %Basophils 0.5 % (0.0-1.0); %Eosinophils 7.7 % (0.0-10.0); %Lymphocytes 14.4 % (21.0-51.0); %Monocytes 10.8 % (0.0-10.0); %Neutrophils 66.6 % (42.0-75.0); Hemoglobin 9.1 g/dL (14.0-18.0); Mean Corpuscular HGB CONC 31.6 g/dL (32.0-36.0); Mean Corpuscular Hemoglobin 30.7 pg (27.0-31.0); Mean Platelet Volume 8.4 fL (7.4-10.4); Platelet Count 182 thou/uL (130-400); RBC Distribution Width 13.3 % (11.5-14.5); Red Blood Cell (RBC) Count 2.95 mill/uL (4.70-6.10); White Blood Cell (WBC) Count 8.9 thou/uL (4.8-10.8)
[2018-04-30 06:12] LABS: Anion Gap 17 mmol/L (10-20); BUN (Urea Nitrogen) 96 mg/dL (8.4-25.7); Calc. Creatinine Clearance 19 mL/min (70-130); Calcium 9.2 mg/dL (7.8-10.44); Carbon Dioxide 23 mmol/L (23-31); Chloride 109 mmol/L (98-107); Estimated GFR-MDRD 14; Glucose 129 mg/dL (83-110); Potassium 4.5 mmol/L (3.5-5.1); Sodium 144 mmol/L (136-145)
[2018-04-30] MEDS: Furosemide 40 MG/4 ML VIAL SLOW IVP SCH ×2 (06:21→14:24)
[2018-04-30] MEDS ORDERED: Heparin 10,000 UNITS/ 10 ML VIAL ONE (09:00)
--- NOTE | 2018-04-30 09:11 | PRG ---
DATE OF SERVICE: 04/30/2018 SUBJECTIVE: Mr. Mancera is an 78-year-old white male with known history of chronic renal failure an d had progressive azotemia and volume overload. Per decision, we have initiated dialysis. I am curr ently at the bedside supervising his dialysis. We will do a 1 hour dialysis today, then we will do h im 2 hours tomorrow. No other complaints. PHYSICAL EXAMINATION: VITAL SIGNS: Blood pressure 180/71, heart rate 59, respiratory rate 17, temperature 98.1, pulse ox 9 4%. GENERAL: Noted to be awake, alert, comfortable, not in distress. SKIN: Adequate turgor. HEENT: He has slightly pale conjunctivae, anicteric sclerae. NECK: No neck mass, no carotid bruits, no JVD. CHEST: No deformities. LUNGS: Decreased breath sounds. HEART: Normal sinus rhythm. No murmur, no gallops, no rubs. ABDOMEN: Globular, soft, nontender, no masses. EXTREMITIES: Bilateral leg amputation. MEDICATIONS: 04/30/2018 - Reviewed. LABORATORY: 04/30/2018 - White count 8.9, hemoglobin 9.1. Sodium 144, potassium 4.5, chloride 109, carbon dioxide 23, BUN 96, creatinine 4.23, glucose 129, calcium 9.2. ASSESSMENT AND PLAN: 1. Chronic renal failure - due to the progressive azotemia we have initiated dialysis. Fluid remova l as tolerated by the patient. Consider discontinuing furosemide in the next few days. 2. Anemia, on weekly Epogen. 3. Congestive heart failure. Maxing out fluid removal with dialysis. I have scheduled him for a 2- hour dialysis tomorrow. We will max out fluid removal in tomorrow's dialysis.
[2018-04-30] MEDS: Carvedilol 25 MG TAB PO SCH ×2 (09:42→20:49)
[2018-04-30] MEDS: Aspirin 81 mg Enteric Coated Tablet PO SCH (09:42)
[2018-04-30] MEDS: Insulin Glargine 15 UNITS in Pre-Filled Syringe 1 EACH SC SCH (09:43)
[2018-04-30] MEDS: hydrALAZINE 25 MG TAB PO SCH ×3 (09:43→20:49)
[2018-04-30] MEDS: Gabapentin 100 MG CAP PO SCH ×3 (09:43→20:49)
[2018-04-30] MEDS: Amlodipine 5 MG TAB PO SCH (09:43)
--- NOTE | 2018-04-30 12:16 | PDOC.PN ---
- Subjective Encounter Start Date: 04/30/18 Encounter Start Time: 10:10 Subjective: had 1 hr session of HD, feels weak -: no sob - Objective MAR Reviewed: Yes Vital Signs & Weight: Vital Signs (12 hours) Temp Pulse Resp BP Pulse Ox 04/30/18 09:43 59 L 04/30/18 09:15 130/56 L 94 L 04/30/18 08:00 98.1 F 59 L 17 180/71 H 94 L 04/30/18 03:35 98 F 59 L 17 122/60 93 L Weight Weight 200 lb 3.2 oz I&O: 04/29/18 04/30/18 05/01/18 06:59 06:59 06:59 Intake Total 1324 300 Output Total 800 1000 Balance 524 -700 Result Diagrams: 04/30/18 05:08 04/30/18 05:08 Additional Labs: Accuchecks 04/30/18 04/30/18 04/29/18 10:46 05:52 20:19 POC Glucose 173 H 136 H 191 H 04/29/18 10:51 POC Glucose 179 H Phys Exam - Physical Examination HEENT: PERRLA, moist MMs Neck: no JVD, supple Respiratory: no wheezing, no rales Cardiovascular: RRR, no significant murmur Gastrointestinal: soft, non-tender, positive bowel sounds Musculoskeletal: pulses present left bka, right aka Neurological: non-focal, moves all 4 limbs Psychiatric: A&O x 3 Dx/Plan (1) ESRD (end stage renal disease) on dialysis Code(s): N18.6 - END STAGE RENAL DISEASE; Z99.2 - DEPENDENCE ON RENAL DIALYSIS Status: Acute Comment: initiated on HD this admission (2) Amputation leg, bilat Code(s): S88.911A - COMPLETE TRAUMATIC AMPUTATION OF R LOW LEG, LEVEL UNSP, INIT ; S88.912A - COMPLETE TRAUMATIC AMPUTATION OF L LOW LEG, LEVEL UNSP, INIT Status: Chronic Qualifiers: Encounter type: sequela Qualified Code(s): S88.911S - Complete traumatic amputation of right lower leg, level unspecified, sequela; S88.912S - Complete traumatic amputation of left lower leg, level unspecified, sequela Comment: has left bka and right aka (3) Anemia, normocytic normochromic Code(s): D64.9 - ANEMIA, UNSPECIFIED Status: Chronic Comment: IV iron, Erythropoetin to address iron deficiency and anemia of chronic disease (4) CAD (coronary artery disease) Code(s): I25.10 - ATHSCL HEART DISEASE OF [place] CORONARY ARTERY W/O ANG PCTRS Status: Chronic Qualifiers: Coronary Disease-Associated Artery/Lesion type: [place] artery Associated angina: without angina (5) Chronic combined systolic and diastolic CHF (congestive heart failure) Code(s): I50.42 - CHRONIC COMBINED SYSTOLIC AND DIASTOLIC HRT FAIL Status: Acute Comment: acute exacerbation, stage C (6) Diabetes mellitus type 2 in obese Code(s): E11.69 - TYPE 2 DIABETES MELLITUS WITH OTHER SPECIFIED COMPLICATION; E66.9 - OBESITY, UNSPECIFIED Status: Chronic (7) HLD (hyperlipidemia) Code(s): E78.5 - HYPERLIPIDEMIA, UNSPECIFIED Status: Chronic Qualifiers: Hyperlipidemia type: unspecified (8) HTN (hypertension) Code(s): I10 - ESSENTIAL (PRIMARY) HYPERTENSION Status: Chronic Qualifiers: Hypertension type: essential hypertension (9) PVD (peripheral vascular disease) Code(s): I73.9 - PERIPHERAL VASCULAR DISEASE, UNSPECIFIED Status: Chronic - Plan has started HD this admission -: continue asp, lipitor, coreg, lasix and imdur -: on lantus 15u daily, watch for hypoglycemia -: encourage po intake -: will need outpt HD chair * . Review of Systems - Medications/Allergies Allergies/Adverse Reactions: Allergies Allergy/AdvReac Type Severity Reaction Status Date / Time acetaminophen [From [place]] Allergy pts family Verified 04/18/18 16:26 notes [place] made him violent hydrocodone [From [place]] Allergy pts family Verified 04/18/18 16:26 notes [place] made him violent zolpidem [From Ambien] AdvReac Verified 04/18/18 11:21 Medications: Current Medications Albuterol/Ipratropium (Duoneb) 3 ml NEB Q6H PRN PRN Reason: Dyspnea/Wheezing/SOB Last Admin: 04/25/18 23:17 Dose: 3 ml Amlodipine Besylate (Norvasc) 5 mg PO DAILY [facility] Last Admin: 04/30/18 09:43 Dose: 5 mg Aspirin (Ecotrin) 81 mg PO DAILY [facility] Last Admin: 04/30/18 09:42 Dose: 81 mg Atorvastatin Calcium (Lipitor) 40 mg PO HS [facility] Last Admin: 04/29/18 21:07 Dose: 40 mg Carvedilol (Coreg) 25 mg PO BID [facility] Last Admin: 04/30/18 09:42 Dose: 25 mg Dextrose/Water (Dextrose 50%) 25 gm IVP PRN PRN PRN Reason: HYPOGLYCEMIA PROTOCOL Epoetin Sean (Procrit) 7,500 units SC Q7D [facility] Last Admin: 04/26/18 09:18 Dose: 7,500 units Furosemide (Lasix) 40 mg SLOW IVP 0600,1400 [facility] Last Admin: 04/30/18 06:21 Dose: 40 mg Gabapentin (Neurontin) 100 mg PO TID [facility] Last Admin: 04/30/18 09:43 Dose: 100 mg Glucagon (Glucagon) 1 mg IM PRN PRN PRN Reason: HYPOGLYCEMIA PROTOCOL Hydralazine HCl (Apresoline) 25 mg PO TID [facility] Last Admin: 04/30/18 09:43 Dose: 25 mg Dextrose/Water (D5w) 1,000 mls @ 0 mls/hr IV INF PRN PRN Reason: HYPOGLYCEMIA PROTOCOL Insulin Glargine 15 units/ (Miscellaneous Medication) 0.15 mls @ 0 mls/hr SC QAM [facility] Last Admin: 04/30/18 09:43 Dose: 0.15 mls Insulin Human Lispro (Humalog) 0 units SC .MODERATE SLIDING SC PRN; Protocol PRN Reason: MODERATE SLIDING SCALE Last Admin: 04/28/18 21:09 Dose: 4 unit Isosorbide Mononitrate (Imdur) 60 mg PO DAILY [facility] Last Admin: 04/30/18 09:42 Dose: 60 mg Melatonin (Melatonin) 4.5 mg PO HS [facility] Last Admin: 04/29/18 21:09 Dose: 4.5 mg Read Ppd Test Site 0 each PO 1800 [facility] Stop: 05/01/18 23:59 Polyethylene Glycol (Miralax) 17 gm PO DAILY PRN PRN Reason: Constipation Sodium Chloride (Flush - Normal Saline) 10 ml IVF PRN PRN PRN Reason: Saline Flush Last Admin: 04/29/18 05:19 Dose: 10 ml Tramadol HCl (Ultram) 25 mg PO BIDPRN PRN PRN Reason: Pain Last Admin: 04/29/18 21:04 Dose: 25 mg
[2018-04-30] MEDS: traMADol HCl 50 MG TAB PO PRN (14:32)
[2018-04-30] MEDS: HumaLOG 300 UNITS/3 ML VIAL SC PRN (17:48)
[2018-04-30] MEDS: READ PPD TEST SITE PO SCH (18:53)
[2018-04-30] MEDS: Atorvastatin Calcium 40 MG TAB PO SCH (20:49)
[2018-04-30] MEDS: Melatonin 3 MG TAB PO SCH (20:50)
[2018-05-01] MEDS: traMADol HCl 50 MG TAB PO PRN ×2 (00:40→21:05)
[2018-05-01] MEDS: Furosemide 40 MG/4 ML VIAL SLOW IVP SCH (06:14)
[2018-05-01] MEDS ORDERED: Fentanyl 100 MCG/2 ML VIAL ONE (06:41)
[2018-05-01] MEDS ORDERED: CEFAZOLIN 2 GM/50 ML BAG ONE (07:12)
[2018-05-01] MEDS ORDERED: Protamine Sulfate 50 MG/5 ML VIAL ONE (07:48)
[2018-05-01] MEDS ORDERED: Heparin 5,000 UNITS/ML VIAL ONE (07:48)
[2018-05-01] MEDS ORDERED: Lidocaine 2% PF 5 ML VIAL ONE (07:48)
[2018-05-01] MEDS ORDERED: Bupivacaine HCl 0.5%/Epinephrine 1:200,000/PF 30 ml Vial ONE ×2 (07:48→11:27)
[2018-05-01] MEDS: hydrALAZINE 25 MG TAB PO SCH ×3 (10:05→21:04)
[2018-05-01] MEDS: Gabapentin 100 MG CAP PO SCH ×3 (10:06→21:04)
--- NOTE | 2018-05-01 11:04 | PDOC.PN ---
- Subjective Encounter Start Date: 05/01/18 Encounter Start Time: 08:00 Subjective: no sob, is going for fistula placement - Objective MAR Reviewed: Yes Vital Signs & Weight: Vital Signs (12 hours) Temp Pulse Resp BP Pulse Ox 05/01/18 10:15 97.2 F L 60 20 125/58 L 92 L 05/01/18 03:43 98.6 F 55 L 18 143/65 H 98 05/01/18 02:54 98 Weight Weight 200 lb 3.2 oz I&O: 04/30/18 05/01/18 05/02/18 06:59 06:59 06:59 Intake Total 300 580 Output Total 1000 1000 Balance -700 -420 Result Diagrams: 04/30/18 05:08 04/30/18 05:08 Additional Labs: Accuchecks 05/01/18 04/30/18 04/30/18 05:55 20:29 17:00 POC Glucose 148 H 191 H 282 H 04/30/18 10:46 POC Glucose 173 H Phys Exam - Physical Examination HEENT: PERRLA, moist MMs Neck: no JVD, supple Respiratory: no wheezing, no rales Cardiovascular: RRR, no significant murmur Gastrointestinal: soft, non-tender, positive bowel sounds Musculoskeletal: no edema, pulses present Neurological: non-focal, moves all 4 limbs left bka, right aka Psychiatric: A&O x 3 Dx/Plan (1) ESRD (end stage renal disease) on dialysis Code(s): N18.6 - END STAGE RENAL DISEASE; Z99.2 - DEPENDENCE ON RENAL DIALYSIS Status: Acute Comment: initiated on HD this admission (2) Amputation leg, bilat Code(s): S88.911A - COMPLETE TRAUMATIC AMPUTATION OF R LOW LEG, LEVEL UNSP, INIT ; S88.912A - COMPLETE TRAUMATIC AMPUTATION OF L LOW LEG, LEVEL UNSP, INIT Status: Chronic Qualifiers: Encounter type: sequela Qualified Code(s): S88.911S - Complete traumatic amputation of right lower leg, level unspecified, sequela; S88.912S - Complete traumatic amputation of left lower leg, level unspecified, sequela Comment: has left bka and right aka (3) Anemia, normocytic normochromic Code(s): D64.9 - ANEMIA, UNSPECIFIED Status: Chronic Comment: IV iron, Erythropoetin to address iron deficiency and anemia of chronic disease (4) CAD (coronary artery disease) Code(s): I25.10 - ATHSCL HEART DISEASE OF [place] CORONARY ARTERY W/O ANG PCTRS Status: Chronic Qualifiers: Coronary Disease-Associated Artery/Lesion type: [place] artery Associated angina: without angina (5) Chronic combined systolic and diastolic CHF (congestive heart failure) Code(s): I50.42 - CHRONIC COMBINED SYSTOLIC AND DIASTOLIC HRT FAIL Status: Acute Comment: acute exacerbation, stage C (6) Diabetes mellitus type 2 in obese Code(s): E11.69 - TYPE 2 DIABETES MELLITUS WITH OTHER SPECIFIED COMPLICATION; E66.9 - OBESITY, UNSPECIFIED Status: Chronic (7) HLD (hyperlipidemia) Code(s): E78.5 - HYPERLIPIDEMIA, UNSPECIFIED Status: Chronic Qualifiers: Hyperlipidemia type: unspecified (8) HTN (hypertension) Code(s): I10 - ESSENTIAL (PRIMARY) HYPERTENSION Status: Chronic Qualifiers: Hypertension type: essential hypertension (9) PVD (peripheral vascular disease) Code(s): I73.9 - PERIPHERAL VASCULAR DISEASE, UNSPECIFIED Status: Chronic - Plan hemostable -: HD per nephrology adv -: needs outpt HD chair -: is on coreg, imdur, asp, lipitor, lantus -: may dc lasix, will tx to medical after another session of HD * . Review of Systems - Medications/Allergies Allergies/Adverse Reactions: Allergies Allergy/AdvReac Type Severity Reaction Status Date / Time acetaminophen [From [place]] Allergy pts family Verified 04/18/18 16:26 notes [place] made him violent hydrocodone [From [place]] Allergy pts family Verified 04/18/18 16:26 notes [place] made him violent zolpidem [From Ambien] AdvReac Verified 04/18/18 11:21 Medications: Current Medications Albuterol/Ipratropium (Duoneb) 3 ml NEB Q6H PRN PRN Reason: Dyspnea/Wheezing/SOB Last Admin: 04/25/18 23:17 Dose: 3 ml Amlodipine Besylate (Norvasc) 5 mg PO DAILY [facility] Last Admin: 04/30/18 09:43 Dose: 5 mg Aspirin (Ecotrin) 81 mg PO DAILY [facility] Last Admin: 04/30/18 09:42 Dose: 81 mg Atorvastatin Calcium (Lipitor) 40 mg PO HS [facility] Last Admin: 04/30/18 20:49 Dose: 40 mg Carvedilol (Coreg) 25 mg PO BID [facility] Last Admin: 04/30/18 20:49 Dose: 25 mg Dextrose/Water (Dextrose 50%) 25 gm IVP PRN PRN PRN Reason: HYPOGLYCEMIA PROTOCOL Epoetin Sean (Procrit) 7,500 units SC Q7D [facility] Last Admin: 04/26/18 09:18 Dose: 7,500 units Furosemide (Lasix) 40 mg SLOW IVP 0600,1400 [facility] Last Admin: 05/01/18 06:14 Dose: 40 mg Gabapentin (Neurontin) 100 mg PO TID [facility] Last Admin: 05/01/18 10:06 Dose: Not Given Glucagon (Glucagon) 1 mg IM PRN PRN PRN Reason: HYPOGLYCEMIA PROTOCOL Hydralazine HCl (Apresoline) 25 mg PO TID [facility] Last Admin: 05/01/18 10:05 Dose: Not Given Dextrose/Water (D5w) 1,000 mls @ 0 mls/hr IV INF PRN PRN Reason: HYPOGLYCEMIA PROTOCOL Insulin Glargine 15 units/ (Miscellaneous Medication) 0.15 mls @ 0 mls/hr SC QAM [facility] Last Admin: 04/30/18 09:43 Dose: 0.15 mls Insulin Human Lispro (Humalog) 0 units SC .MODERATE SLIDING SC PRN; Protocol PRN Reason: MODERATE SLIDING SCALE Last Admin: 04/30/18 17:48 Dose: 6 unit Isosorbide Mononitrate (Imdur) 60 mg PO DAILY [facility] Last Admin: 04/30/18 09:42 Dose: 60 mg Melatonin (Melatonin) 4.5 mg PO HS [facility] Last Admin: 04/30/18 20:50 Dose: 4.5 mg Read Ppd Test Site 0 each PO 1800 [facility] Stop: 05/01/18 23:59 Last Admin: 04/30/18 18:53 Dose: 1 each Polyethylene Glycol (Miralax) 17 gm PO DAILY PRN PRN Reason: Constipation Sodium Chloride (Flush - Normal Saline) 10 ml IVF PRN PRN PRN Reason: Saline Flush Last Admin: 04/29/18 05:19 Dose: 10 ml Tramadol HCl (Ultram) 25 mg PO BIDPRN PRN PRN Reason: Pain Last Admin: 05/01/18 00:40 Dose: 25 mg
[2018-05-01] MEDS ORDERED: Heparin 1,000 UNITS/ML VIAL ONE (11:11)
--- NOTE | 2018-05-01 11:14 | OP ---
DATE OF SERVICE: 05/01/2018 PREOPERATIVE DIAGNOSES: End-stage renal disease, bilateral amputee. POSTOPERATIVE DIAGNOSES: End-stage renal disease, bilateral amputee left arm. PROCEDURE: Left arm primary fistula, perforating branch antecubital vein to the proximal radial sophie ry, outflow cephalic vein only. No communication to basilic vein appreciated. A 4 mm coronary dilat or calibration outflow tract. Excellent Doppler and palpable signals cephalic vein outflow upper arm , left. SURGEONN: Dr. Philip Mirza ANESTHESIA: Regional, TIVA. ESTIMATED BLOOD LOSS: 88 mL. PROCEDURE: The patient was taken to the operating room where under intravenous sedation regional ane sthesia, left upper extremity was prepared with ChloraPrep, draped in routine fashion. A longitudina l incision was made below the antecubital fossa carried down skin and subcutaneous tissue. Antecubit al vein, brachial, radial and ulnar artery dissected free. The patient was given 6000 units heparin intravenously. Perforating branch antecubital vein dissected free and was of excellent caliber and b ranches divided between clips and then it was spatulated over branch points and interrogated with cor onary dilators, passing coronary dilators from a 2 mm to a 4 mm coronary dilator out the cephalic vei n outflow. Had a small anomalous communication to the basilic vein that was divided between 4-0 silk ties to facilitate mobility of the perforating branch. The brachial, radial, and ulnar arteries wer e of excellent caliber and quality and they were clamped with atraumatic vascular clamp and longitudi nal arteriotomy made sharply and elongated with Alcaraz scissors 2.5 cm anastomosis created between the end perforating branch of the antecubital vein to the proximal radial artery with continuous suture of 6-0 Prolene, gaining good hemostasis with 6-0 Prolene. Once vascular closure was released, there was good Doppler signal throughout the outflow tract. The patient was given 25 mg protamine intraven ously by Anesthesia. Good hemostasis noted. Subcutaneous tissues approximated with 3-0 Monocryl, sk in with subdermal 4-0 Monocryl and DermaGlue applied.
[2018-05-01] MEDS: Amlodipine 5 MG TAB PO SCH (12:07)
[2018-05-01] MEDS: Insulin Glargine 15 UNITS in Pre-Filled Syringe 1 EACH SC SCH (12:08)
[2018-05-01] MEDS: Carvedilol 25 MG TAB PO SCH ×2 (12:08→21:04)
[2018-05-01] MEDS: Aspirin 81 mg Enteric Coated Tablet PO SCH (12:08)
[2018-05-01] MEDS ORDERED: Heparin 10,000 UNITS/ 10 ML VIAL ONE (13:31)
[2018-05-01] MEDS ORDERED: PROPOFOL 200 MG/20 ML VIAL ONE (13:31)
[2018-05-01] MEDS ORDERED: PHENYLEPHRINE-NS 100 MCG/ML 10 ML SYRINGE ONE (13:31)
--- NOTE | 2018-05-01 19:45 | PRG ---
DATE OF SERVICE: 05/01/2018 RENAL MEDICINE SUBJECTIVE: Mr. Mancera is an 78-year-old white male followed up for his acute kidney injury on top of his chronic renal failure. He may now have progressed to end-stage renal disease. He underwent dialysis today. Minimal fluid removal was done due to the low blood pressure. He feels better, has no complaints of chest pain or shortness of breath. PHYSICAL EXAMINATION: VITAL SIGNS: Blood pressure 115/92, heart rate 93, respiratory rate 18, temperature 98.8, pulse ox 9 5%. GENERAL: Noted to be awake, alert, comfortable, not in distress. SKIN: Adequate turgor. HEENT: Slightly pale conjunctivae, anicteric sclerae. NECK: No neck mass, no carotid bruits, no JVD. CHEST: No deformities. LUNGS: Clear breath sounds, no wheezing, no crackles. HEART: Normal sinus rhythm. No murmurs, no gallops or rubs. ABDOMEN: Globular, soft, nontender. EXTREMITIES: Bilateral leg amputations. MEDICATIONS: Medications of 05/01/2018 was reviewed. LABORATORY DATA: Laboratories of 04/30/2018, BUN 96, creatinine 4.23, potassium 4.5. ASSESSMENT AND PLAN: Chronic renal failure/end-stage renal disease. Continuing hemodialysis regimen . Minimal fluid removal due to the low blood pressure earlier during dialysis. We will be attemptin g to remove fluid via dialysis. For this reason, consider discontinuing IV Lasix with this patient. Overall, agree with current management.
[2018-05-01] MEDS: READ PPD TEST SITE PO SCH (21:03)
[2018-05-01] MEDS: Atorvastatin Calcium 40 MG TAB PO SCH (21:04)
[2018-05-01] MEDS: Melatonin 3 MG TAB PO SCH (21:05)
[2018-05-02] MEDS: Gabapentin 100 MG CAP PO SCH ×3 (08:26→21:57)
[2018-05-02] MEDS: Aspirin 81 mg Enteric Coated Tablet PO SCH (08:26)
[2018-05-02] MEDS: Insulin Glargine 15 UNITS in Pre-Filled Syringe 1 EACH SC SCH (08:29)
[2018-05-02] MEDS: traMADol HCl 50 MG TAB PO PRN (08:30)
--- NOTE | 2018-05-02 09:51 | PRG ---
DATE OF SERVICE: 05/02/2018 Amrik Mancera is doing well after hemodialysis catheter placement and left arm fistula. He has a good thrill and bruit in his left upper arm cephalic vein fistula. This should work out well for future dialysis after a period of maturation of 3-4 weeks. He should follow up in my office in 3-4 weeks. At this point, I will see him as needed. Please call if necessary.
--- NOTE | 2018-05-02 12:21 | PRG ---
DATE OF SERVICE: 05/02/2018 RENAL MEDICINE SUBJECTIVE: Mr. Mancrea is an 78-year-old white male who was seen for his chronic renal failure -- worsening with progressive azotemia and volume overload. He was initiated dialysis. I am currently at the dialysis unit, supervising his dialysis. His blood pressure is noted to be on the low side. For that reason, we are minimizing the patient's fluid removal at the present time. No other complaints. OBJECTIVE: VITAL SIGNS: Blood pressure is 107/54, heart rate 61, respiratory rate 20, temperature 97.7, pulse o x 93%. GENERAL: Awake, alert, comfortable, not in distress. SKIN: Adequate turgor. HEENT: Pinkish conjunctivae. Anicteric sclerae. NECK: No neck mass, no carotid bruits, no JVD. CHEST: No deformities. LUNGS: Decreased breath sounds. HEART: Normal sinus rhythm. No murmur, no gallops, no rubs. ABDOMEN: Globular, soft, nontender. EXTREMITIES: Bilateral leg amputations. MEDICATIONS: Medications of 05/02/2018 was reviewed. LABORATORY DATA: Laboratories of 04/30/2018, hemoglobin 9.1. On 05/02/2018, glucose 120. ASSESSMENT AND PLAN: 1. Chronic renal failure/end-stage renal disease -- Continue hemodialysis regimen. The patient is s cheduled for a 3-hour hemodialysis today. Fluid removal only as tolerated. We will again resume ingris lysis for 4 hours tomorrow. 2. Congestive heart failure, clinically much improved. Off IV Lasix. 3. Anemia, on Epogen regimen.
[2018-05-02] MEDS: hydrALAZINE 25 MG TAB PO SCH (12:39)
--- NOTE | 2018-05-02 12:42 | PDOC.PN ---
- Subjective Encounter Start Date: 05/02/18 Encounter Start Time: 11:45 Subjective: is getting HD, no sob or dizziness - Objective MAR Reviewed: Yes Vital Signs & Weight: Vital Signs (12 hours) Temp Pulse Resp BP Pulse Ox 05/02/18 08:15 98.2 F 59 L 16 101/46 L 95 05/02/18 04:00 97.7 F 61 20 107/54 L 93 L Weight Weight 201 lb 8 oz I&O: 05/01/18 05/02/18 05/03/18 06:59 06:59 06:59 Intake Total 580 550 360 Output Total 1000 Balance -420 550 360 Result Diagrams: 04/30/18 05:08 04/30/18 05:08 Additional Labs: Accuchecks 05/02/18 05/02/18 05/01/18 11:35 05:49 20:49 POC Glucose 132 H 120 H 163 H 05/01/18 16:36 POC Glucose 143 H Phys Exam - Physical Examination HEENT: PERRLA, moist MMs Neck: no JVD, supple Respiratory: no wheezing, no rales Cardiovascular: RRR, no significant murmur Gastrointestinal: soft, non-tender, positive bowel sounds Musculoskeletal: no edema, pulses present Neurological: non-focal, moves all 4 limbs Dx/Plan (1) ESRD (end stage renal disease) on dialysis Code(s): N18.6 - END STAGE RENAL DISEASE; Z99.2 - DEPENDENCE ON RENAL DIALYSIS Status: Acute Comment: initiated on HD this admission (2) Amputation leg, bilat Code(s): S88.911A - COMPLETE TRAUMATIC AMPUTATION OF R LOW LEG, LEVEL UNSP, INIT ; S88.912A - COMPLETE TRAUMATIC AMPUTATION OF L LOW LEG, LEVEL UNSP, INIT Status: Chronic Qualifiers: Encounter type: sequela Qualified Code(s): S88.911S - Complete traumatic amputation of right lower leg, level unspecified, sequela; S88.912S - Complete traumatic amputation of left lower leg, level unspecified, sequela Comment: has left bka and right aka (3) Anemia, normocytic normochromic Code(s): D64.9 - ANEMIA, UNSPECIFIED Status: Chronic Comment: IV iron, Erythropoetin to address iron deficiency and anemia of chronic disease (4) CAD (coronary artery disease) Code(s): I25.10 - ATHSCL HEART DISEASE OF [place] CORONARY ARTERY W/O ANG PCTRS Status: Chronic Qualifiers: Coronary Disease-Associated Artery/Lesion type: [place] artery Associated angina: without angina (5) Chronic combined systolic and diastolic CHF (congestive heart failure) Code(s): I50.42 - CHRONIC COMBINED SYSTOLIC AND DIASTOLIC HRT FAIL Status: Acute Comment: acute exacerbation, stage C (6) Diabetes mellitus type 2 in obese Code(s): E11.69 - TYPE 2 DIABETES MELLITUS WITH OTHER SPECIFIED COMPLICATION; E66.9 - OBESITY, UNSPECIFIED Status: Chronic (7) HLD (hyperlipidemia) Code(s): E78.5 - HYPERLIPIDEMIA, UNSPECIFIED Status: Chronic Qualifiers: Hyperlipidemia type: unspecified (8) HTN (hypertension) Code(s): I10 - ESSENTIAL (PRIMARY) HYPERTENSION Status: Chronic Qualifiers: Hypertension type: essential hypertension (9) PVD (peripheral vascular disease) Code(s): I73.9 - PERIPHERAL VASCULAR DISEASE, UNSPECIFIED Status: Chronic - Plan is tolerating HD, he will be getting 3 hr session today -: is for repeat 4 hr session in am -: will need outpt HD chair -: watch for hypotension -: will reduce doses of antihtn med * . currently on coreg, asp, lipitor and lantus. Review of Systems - Medications/Allergies Allergies/Adverse Reactions: Allergies Allergy/AdvReac Type Severity Reaction Status Date / Time acetaminophen [From [place]] Allergy pts family Verified 04/18/18 16:26 notes [place] made him violent hydrocodone [From [place]] Allergy pts family Verified 04/18/18 16:26 notes [place] made him violent zolpidem [From Ambien] AdvReac Verified 04/18/18 11:21 Medications: Current Medications Albuterol/Ipratropium (Duoneb) 3 ml NEB Q6H PRN PRN Reason: Dyspnea/Wheezing/SOB Last Admin: 04/25/18 23:17 Dose: 3 ml Amlodipine Besylate (Norvasc) 5 mg PO DAILY [facility] Last Admin: 05/01/18 12:07 Dose: 5 mg Aspirin (Ecotrin) 81 mg PO DAILY [facility] Last Admin: 05/02/18 08:26 Dose: 81 mg Atorvastatin Calcium (Lipitor) 40 mg PO HS [facility] Last Admin: 05/01/18 21:04 Dose: 40 mg Carvedilol (Coreg) 25 mg PO BID [facility] Last Admin: 05/01/18 21:04 Dose: 25 mg Dextrose/Water (Dextrose 50%) 25 gm IVP PRN PRN PRN Reason: HYPOGLYCEMIA PROTOCOL Epoetin Sean (Procrit) 7,500 units SC Q7D [facility] Last Admin: 04/26/18 09:18 Dose: 7,500 units Gabapentin (Neurontin) 100 mg PO TID [facility] Last Admin: 05/02/18 08:26 Dose: 100 mg Glucagon (Glucagon) 1 mg IM PRN PRN PRN Reason: HYPOGLYCEMIA PROTOCOL Hydralazine HCl (Apresoline) 25 mg PO TID [facility] Last Admin: 05/02/18 12:39 Dose: Not Given Dextrose/Water (D5w) 1,000 mls @ 0 mls/hr IV INF PRN PRN Reason: HYPOGLYCEMIA PROTOCOL Insulin Glargine 15 units/ (Miscellaneous Medication) 0.15 mls @ 0 mls/hr SC QAM [facility] Last Admin: 05/02/18 08:29 Dose: 0.15 mls Insulin Human Lispro (Humalog) 0 units SC .MODERATE SLIDING SC PRN; Protocol PRN Reason: MODERATE SLIDING SCALE Last Admin: 04/30/18 17:48 Dose: 6 unit Isosorbide Mononitrate (Imdur) 60 mg PO DAILY [facility] Last Admin: 05/01/18 12:08 Dose: 60 mg Melatonin (Melatonin) 4.5 mg PO HS [facility] Last Admin: 05/01/18 21:05 Dose: 4.5 mg Polyethylene Glycol (Miralax) 17 gm PO DAILY PRN PRN Reason: Constipation Sodium Chloride (Flush - Normal Saline) 10 ml IVF PRN PRN PRN Reason: Saline Flush Last Admin: 05/02/18 08:31 Dose: 10 ml Tramadol HCl (Ultram) 25 mg PO BIDPRN PRN PRN Reason: Pain Last Admin: 05/02/18 08:30 Dose: 25 mg
[2018-05-02] MEDS: Carvedilol 25 MG TAB PO SCH (13:05)
[2018-05-02] MEDS: Amlodipine 5 MG TAB PO SCH (13:05)
[2018-05-02] MEDS ORDERED: Lorazepam 2 MG/ML VIAL SLOW IVP PRN (14:13)
[2018-05-02] MEDS ORDERED: Lorazepam 2 MG/ML VIAL ONE (14:23)
[2018-05-02] MEDS ORDERED: Ziprasidone 20 MG VIAL ONE ×2 (14:37→14:41)
[2018-05-02] MEDS ORDERED: Sodium Chloride 0.9% 10 ML ONE (14:41)
[2018-05-02] MEDS ORDERED: Sterile Water 10 ML VIAL FS ONE (14:45)
[2018-05-02] MEDS ORDERED: Ibuprofen 200 MG TAB PO SCH (15:00)
[2018-05-02] MEDS ORDERED: Ziprasidone 20 MG VIAL IM SCH (15:00)
[2018-05-02 17:47] LABS: #Eosinphils 0.5 thou/uL (0.0-0.7); #Lymphocytes 1.3 thou/uL (1.20-3.40); #Monocytes 1.1 thou/uL (0.11-0.59); #Neutrophils 7.3 thou/uL (1.40-6.50); %Basophils 0.5 % (0.0-1.0); %Monocytes 10.5 % (0.0-10.0); Hemoglobin 9.8 g/dL (14.0-18.0); Mean Corpuscular HGB CONC 32.5 g/dL (32.0-36.0); Mean Corpuscular Hemoglobin 30.7 pg (27.0-31.0); Mean Corpuscular Volume 94.4 fL (78.0-98.0); Mean Platelet Volume 8.3 fL (7.4-10.4); Platelet Count 169 thou/uL (130-400); RBC Distribution Width 13.4 % (11.5-14.5); Red Blood Cell (RBC) Count 3.18 mill/uL (4.70-6.10); White Blood Cell (WBC) Count 10.3 thou/uL (4.8-10.8)
[2018-05-02] MEDS: Carvedilol 3.125 MG TAB PO SCH (18:12)
[2018-05-02] MEDS: HumaLOG 300 UNITS/3 ML VIAL SC PRN (18:12)
[2018-05-02 18:15] LABS: Anion Gap 13 mmol/L (10-20); BUN (Urea Nitrogen) 24 mg/dL (8.4-25.7); Calc. Creatinine Clearance 34 mL/min (70-130); Calcium 9.1 mg/dL (7.8-10.44); Carbon Dioxide 30 mmol/L (23-31); Chloride 98 mmol/L (98-107); Estimated GFR-MDRD 29; Glucose 189 mg/dL (83-110); Potassium 3.5 mmol/L (3.5-5.1); Sodium 137 mmol/L (136-145)
[2018-05-02] MEDS: Melatonin 3 MG TAB PO SCH (21:56)
[2018-05-02] MEDS: Atorvastatin Calcium 40 MG TAB PO SCH (21:57)
[2018-05-03 04:45] LABS: Anion Gap 15 mmol/L (10-20); BUN (Urea Nitrogen) 32 mg/dL (8.4-25.7); Calc. Creatinine Clearance 28 mL/min (70-130); Calcium 9.1 mg/dL (7.8-10.44); Carbon Dioxide 29 mmol/L (23-31); Chloride 99 mmol/L (98-107); Estimated GFR-MDRD 23; Glucose 161 mg/dL (83-110); Potassium 3.7 mmol/L (3.5-5.1); Sodium 139 mmol/L (136-145)
[2018-05-03] MEDS: Aspirin 81 mg Enteric Coated Tablet PO SCH (10:28)
[2018-05-03] MEDS: Gabapentin 100 MG CAP PO SCH ×3 (10:28→21:53)
[2018-05-03] MEDS: Carvedilol 3.125 MG TAB PO SCH ×2 (10:28→18:02)
[2018-05-03] MEDS: Insulin Glargine 15 UNITS in Pre-Filled Syringe 1 EACH SC SCH (10:29)
--- NOTE | 2018-05-03 10:59 | PDOC.PN ---
- Subjective Encounter Start Date: 05/03/18 Encounter Start Time: 10:00 Subjective: awake not oriented -: doesn't feel like eating breakfast - Objective MAR Reviewed: Yes Vital Signs & Weight: Vital Signs (12 hours) Temp Pulse Resp BP Pulse Ox 05/03/18 08:00 98.6 F 61 18 131/63 98 05/03/18 04:00 99.3 F 65 12 129/59 L 93 L 05/03/18 03:01 96 05/03/18 00:00 98.5 F 62 16 126/58 L 92 L Weight Weight 191 lb 2.252 oz I&O: 05/02/18 05/03/18 05/04/18 06:59 06:59 06:59 Intake Total 550 980 Balance 550 980 Result Diagrams: 05/02/18 17:21 05/03/18 03:48 Additional Labs: Accuchecks 05/03/18 05/02/18 05/02/18 05:15 20:57 17:12 POC Glucose 160 H 204 H 172 H 05/02/18 11:35 POC Glucose 132 H Phys Exam - Physical Examination HEENT: PERRLA, sclera anicteric Neck: no JVD, supple Respiratory: no wheezing, no rales Cardiovascular: RRR, no significant murmur Gastrointestinal: soft, non-tender, positive bowel sounds Musculoskeletal: no edema, pulses present Neurological: non-focal, moves all 4 limbs Dx/Plan (1) ESRD (end stage renal disease) on dialysis Code(s): N18.6 - END STAGE RENAL DISEASE; Z99.2 - DEPENDENCE ON RENAL DIALYSIS Status: Acute Comment: initiated on HD this admission (2) Amputation leg, bilat Code(s): S88.911A - COMPLETE TRAUMATIC AMPUTATION OF R LOW LEG, LEVEL UNSP, INIT ; S88.912A - COMPLETE TRAUMATIC AMPUTATION OF L LOW LEG, LEVEL UNSP, INIT Status: Chronic Qualifiers: Encounter type: sequela Qualified Code(s): S88.911S - Complete traumatic amputation of right lower leg, level unspecified, sequela; S88.912S - Complete traumatic amputation of left lower leg, level unspecified, sequela Comment: has left bka and right aka (3) Anemia, normocytic normochromic Code(s): D64.9 - ANEMIA, UNSPECIFIED Status: Chronic Comment: IV iron, Erythropoetin to address iron deficiency and anemia of chronic disease (4) CAD (coronary artery disease) Code(s): I25.10 - ATHSCL HEART DISEASE OF [place] CORONARY ARTERY W/O ANG PCTRS Status: Chronic Qualifiers: Coronary Disease-Associated Artery/Lesion type: [place] artery Associated angina: without angina (5) Chronic combined systolic and diastolic CHF (congestive heart failure) Code(s): I50.42 - CHRONIC COMBINED SYSTOLIC AND DIASTOLIC HRT FAIL Status: Acute Comment: acute exacerbation, stage C (6) Diabetes mellitus type 2 in obese Code(s): E11.69 - TYPE 2 DIABETES MELLITUS WITH OTHER SPECIFIED COMPLICATION; E66.9 - OBESITY, UNSPECIFIED Status: Chronic (7) HLD (hyperlipidemia) Code(s): E78.5 - HYPERLIPIDEMIA, UNSPECIFIED Status: Chronic Qualifiers: Hyperlipidemia type: unspecified (8) HTN (hypertension) Code(s): I10 - ESSENTIAL (PRIMARY) HYPERTENSION Status: Chronic Qualifiers: Hypertension type: essential hypertension (9) PVD (peripheral vascular disease) Code(s): I73.9 - PERIPHERAL VASCULAR DISEASE, UNSPECIFIED Status: Chronic (10) Dementia Code(s): F03.90 - UNSPECIFIED DEMENTIA WITHOUT BEHAVIORAL DISTURBANCE Status: Chronic Qualifiers: Dementia type: unspecified type Dementia behavioral disturbance: with behavioral disturbance Qualified Code(s): F03.91 - Unspecified dementia with behavioral disturbance - Plan he pulled his HD cath out yesterday -: on discussion further with staff patient has been having even be -: -fore he was initiated on HD, likely is a poor candidate for HD -: d/w daughter Ms.Brewer Chand, she will touch base with her siblings -: has 1:1 sitter, is still not oriented this morning * . Plan is if he remains calm and is off sitter, will dc back to generations snf had restraints yesterday, none today, so will have to wait 24hrs unless snf is ready to take him He gets back to normal when he goes to snf per family. Review of Systems - Medications/Allergies Allergies/Adverse Reactions: Allergies Allergy/AdvReac Type Severity Reaction Status Date / Time acetaminophen [From [place]] Allergy pts family Verified 04/18/18 16:26 notes [place] made him violent hydrocodone [From [place]] Allergy pts family Verified 04/18/18 16:26 notes [place] made him violent zolpidem [From Ambien] AdvReac Verified 04/18/18 11:21 Medications: Current Medications Albuterol/Ipratropium (Duoneb) 3 ml NEB Q6H PRN PRN Reason: Dyspnea/Wheezing/SOB Last Admin: 04/25/18 23:17 Dose: 3 ml Aspirin (Ecotrin) 81 mg PO DAILY [facility] Last Admin: 05/03/18 10:28 Dose: 81 mg Atorvastatin Calcium (Lipitor) 40 mg PO HS [facility] Last Admin: 05/02/18 21:57 Dose: 40 mg Carvedilol (Coreg) 3.125 mg PO BID-[facility] Last Admin: 05/03/18 10:28 Dose: 3.125 mg Dextrose/Water (Dextrose 50%) 25 gm IVP PRN PRN PRN Reason: HYPOGLYCEMIA PROTOCOL Epoetin Sean (Procrit) 7,500 units SC Q7D [facility] Last Admin: 04/26/18 09:18 Dose: 7,500 units Gabapentin (Neurontin) 100 mg PO TID [facility] Last Admin: 05/03/18 10:28 Dose: 100 mg Glucagon (Glucagon) 1 mg IM PRN PRN PRN Reason: HYPOGLYCEMIA PROTOCOL Dextrose/Water (D5w) 1,000 mls @ 0 mls/hr IV INF PRN PRN Reason: HYPOGLYCEMIA PROTOCOL Insulin Glargine 15 units/ (Miscellaneous Medication) 0.15 mls @ 0 mls/hr SC QAM [facility] Last Admin: 05/03/18 10:29 Dose: 0.15 mls Insulin Human Lispro (Humalog) 0 units SC .MODERATE SLIDING SC PRN; Protocol PRN Reason: MODERATE SLIDING SCALE Last Admin: 05/02/18 18:12 Dose: 2 unit Melatonin (Melatonin) 4.5 mg PO HS [facility] Last Admin: 05/02/18 21:56 Dose: 4.5 mg Polyethylene Glycol (Miralax) 17 gm PO DAILY PRN PRN Reason: Constipation Sodium Chloride (Flush - Normal Saline) 10 ml IVF PRN PRN PRN Reason: Saline Flush Last Admin: 05/02/18 21:57 Dose: 10 ml Tramadol HCl (Ultram) 25 mg PO BIDPRN PRN PRN Reason: Pain Last Admin: 05/02/18 08:30 Dose: 25 mg
--- NOTE | 2018-05-03 11:12 | PRG ---
DATE OF SERVICE: 05/03/2018 SUBJECTIVE: Mr. Mancera is an 78-year-old white male currently initiated on dialysis. He has been relatively hypotensive in the past. For that reason, minimal fluid removal was being removed with di alysis. Last night he became more confused. He inadvertently pulled out his dialysis catheter. He is now sedated. No complaints of chest pain or shortness of breath. PHYSICAL EXAMINATION: VITAL SIGNS: Blood pressure is 131/63, heart rate 61, respiratory rate 18, temperature 98.6, pulse o x 93%. GENERAL: Noted to be sleeping, but arousable, not in distress, obese. SKIN: Adequate turgor. HEENT: Pinkish conjunctivae, anicteric sclerae. NECK: No neck mass, no carotid bruits, no JVD. CHEST: No deformities. LUNGS: Decreased breath sounds. HEART: Normal sinus rhythm. No murmur, no gallops, no rubs. ABDOMEN: Globular, soft, nontender, no masses. EXTREMITIES: Bilateral leg amputation. MEDICATIONS: Of 05/03/2018 reviewed. LABORATORY: Of 05/03/2018: Sodium 139, potassium 3.7, chloride 99, carbon dioxide 29, BUN 32, creat inine 2.72, glucose 161, calcium 9.1. ASSESSMENT AND PLAN: 1. Chronic renal failure/end-stage renal disease -- stable. The patient inadvertently removed his d ialysis catheter. The plan is simply to observe him. We will reconsult surgery for replacement of t his cuffed dialysis catheter. For the moment, I agree with current management. Hold dialysis for th e moment. 2. Hypotension, much improved. 3. Confusion -- most likely from metabolic encephalopathy. Continue to observe. If persistent, con hub borer a CT scan of the head.
[2018-05-03] MEDS: Epoetin (ESRD) 20,000 UNITS/ML SC SCH (11:22)
[2018-05-03] MEDS: traMADol HCl 50 MG TAB PO PRN (18:02)
[2018-05-03] MEDS: HumaLOG 300 UNITS/3 ML VIAL SC PRN (18:04)
[2018-05-03] MEDS: Melatonin 3 MG TAB PO SCH (21:51)
[2018-05-03] MEDS: Atorvastatin Calcium 40 MG TAB PO SCH (21:53)
[2018-05-04] MEDS: Carvedilol 3.125 MG TAB PO SCH ×2 (07:53→17:00)
[2018-05-04] MEDS: Gabapentin 100 MG CAP PO SCH ×3 (07:53→20:38)
[2018-05-04] MEDS: Insulin Glargine 15 UNITS in Pre-Filled Syringe 1 EACH SC SCH (07:53)
[2018-05-04] MEDS: Aspirin 81 mg Enteric Coated Tablet PO SCH (07:53)
[2018-05-04 10:36] LABS: #Eosinphils 0.5 thou/uL (0.0-0.7); #Lymphocytes 1.3 thou/uL (1.20-3.40); #Monocytes 1.1 thou/uL (0.11-0.59); #Neutrophils 7.9 thou/uL (1.40-6.50); %Basophils 0.3 % (0.0-1.0); %Lymphocytes 11.8 % (21.0-51.0); %Monocytes 10.4 % (0.0-10.0); %Neutrophils 72.5 % (42.0-75.0); Hemoglobin 9.8 g/dL (14.0-18.0); Mean Corpuscular HGB CONC 31.8 g/dL (32.0-36.0); Mean Corpuscular Hemoglobin 30.5 pg (27.0-31.0); Mean Corpuscular Volume 95.9 fL (78.0-98.0); Mean Platelet Volume 8.5 fL (7.4-10.4); Platelet Count 160 thou/uL (130-400); RBC Distribution Width 13.4 % (11.5-14.5); White Blood Cell (WBC) Count 10.9 thou/uL (4.8-10.8)
[2018-05-04 10:40] LABS: Albumin 3.6 g/dL (3.4-4.8); Anion Gap 14 mmol/L (10-20); BUN (Urea Nitrogen) 51 mg/dL (8.4-25.7); BUN/Creatinine Ratio 13.53; Calc. Creatinine Clearance 20 mL/min (70-130); Calcium 9.2 mg/dL (7.8-10.44); Carbon Dioxide 28 mmol/L (23-31); Chloride 100 mmol/L (98-107); Estimated GFR-MDRD 16; Glucose 206 mg/dL (83-110); Phosphorus 5.1 mg/dL (2.3-4.7); Sodium 138 mmol/L (136-145)
[2018-05-04] MEDS: traMADol HCl 50 MG TAB PO PRN ×2 (10:54→22:16)
--- NOTE | 2018-05-04 12:45 | PDOC.PN ---
- Subjective Encounter Start Date: 05/04/18 Encounter Start Time: 09:45 Subjective: this morning he is oriented fairly well, responds well to questions -: no sob - Objective MAR Reviewed: Yes Vital Signs & Weight: Vital Signs (12 hours) Temp Pulse Pulse Resp BP BP Pulse Ox 05/04/18 08:43 62 147/82 H 05/04/18 08:00 96 05/04/18 07:41 98.4 F 60 20 135/63 96 05/04/18 04:45 98.5 F 60 18 100/57 L 96 Pulse Ox 05/04/18 08:43 97 05/04/18 08:00 05/04/18 07:41 05/04/18 04:45 Weight Weight 203 lb 12.8 oz I&O: 05/03/18 05/04/18 05/05/18 06:59 06:59 06:59 Intake Total 980 480 360 Balance 980 480 360 Result Diagrams: 05/04/18 10:00 05/04/18 10:00 Additional Labs: Accuchecks 05/04/18 05/04/18 05/03/18 10:55 04:54 19:43 POC Glucose 183 H 144 H 219 H 05/03/18 17:46 POC Glucose 239 H Phys Exam - Physical Examination HEENT: PERRLA, moist MMs Neck: no JVD, supple Respiratory: no wheezing, no rales Cardiovascular: RRR, no significant murmur Gastrointestinal: soft, non-tender, positive bowel sounds Musculoskeletal: no edema, pulses present Neurological: non-focal, moves all 4 limbs Psychiatric: normal affect Dx/Plan (1) ESRD (end stage renal disease) on dialysis Code(s): N18.6 - END STAGE RENAL DISEASE; Z99.2 - DEPENDENCE ON RENAL DIALYSIS Status: Acute Comment: initiated on HD this admission, held now (2) Amputation leg, bilat Code(s): S88.911A - COMPLETE TRAUMATIC AMPUTATION OF R LOW LEG, LEVEL UNSP, INIT ; S88.912A - COMPLETE TRAUMATIC AMPUTATION OF L LOW LEG, LEVEL UNSP, INIT Status: Chronic Qualifiers: Encounter type: sequela Qualified Code(s): S88.911S - Complete traumatic amputation of right lower leg, level unspecified, sequela; S88.912S - Complete traumatic amputation of left lower leg, level unspecified, sequela Comment: has left bka and right aka (3) Anemia, normocytic normochromic Code(s): D64.9 - ANEMIA, UNSPECIFIED Status: Chronic Comment: IV iron, Erythropoetin to address iron deficiency and anemia of chronic disease (4) CAD (coronary artery disease) Code(s): I25.10 - ATHSCL HEART DISEASE OF [place] CORONARY ARTERY W/O ANG PCTRS Status: Chronic Qualifiers: Coronary Disease-Associated Artery/Lesion type: [place] artery Associated angina: without angina (5) Chronic combined systolic and diastolic CHF (congestive heart failure) Code(s): I50.42 - CHRONIC COMBINED SYSTOLIC AND DIASTOLIC HRT FAIL Status: Acute Comment: acute exacerbation, stage C (6) Diabetes mellitus type 2 in obese Code(s): E11.69 - TYPE 2 DIABETES MELLITUS WITH OTHER SPECIFIED COMPLICATION; E66.9 - OBESITY, UNSPECIFIED Status: Chronic (7) HLD (hyperlipidemia) Code(s): E78.5 - HYPERLIPIDEMIA, UNSPECIFIED Status: Chronic Qualifiers: Hyperlipidemia type: unspecified (8) HTN (hypertension) Code(s): I10 - ESSENTIAL (PRIMARY) HYPERTENSION Status: Chronic Qualifiers: Hypertension type: essential hypertension (9) PVD (peripheral vascular disease) Code(s): I73.9 - PERIPHERAL VASCULAR DISEASE, UNSPECIFIED Status: Chronic (10) Dementia Code(s): F03.90 - UNSPECIFIED DEMENTIA WITHOUT BEHAVIORAL DISTURBANCE Status: Chronic Qualifiers: Dementia type: unspecified type Dementia behavioral disturbance: with behavioral disturbance Qualified Code(s): F03.91 - Unspecified dementia with behavioral disturbance - Plan his renal function is going up, last HD was on -: poor prognosis -: d/w daughter, will likely dc him back to snf and have labs faxed to -: on coreg, asp, lipitor, lantus and imdur * . Review of Systems - Medications/Allergies Allergies/Adverse Reactions: Allergies Allergy/AdvReac Type Severity Reaction Status Date / Time acetaminophen [From [place]] Allergy pts family Verified 04/18/18 16:26 notes [place] made him violent hydrocodone [From [place]] Allergy pts family Verified 04/18/18 16:26 notes [place] made him violent zolpidem [From Ambien] AdvReac Verified 04/18/18 11:21 Medications: Current Medications Albuterol/Ipratropium (Duoneb) 3 ml NEB Q6H PRN PRN Reason: Dyspnea/Wheezing/SOB Last Admin: 04/25/18 23:17 Dose: 3 ml Aspirin (Ecotrin) 81 mg PO DAILY [facility] Last Admin: 05/04/18 07:53 Dose: 81 mg Atorvastatin Calcium (Lipitor) 40 mg PO HS [facility] Last Admin: 05/03/18 21:53 Dose: 40 mg Carvedilol (Coreg) 3.125 mg PO BID-[facility] Last Admin: 05/04/18 07:53 Dose: 3.125 mg Dextrose/Water (Dextrose 50%) 25 gm IVP PRN PRN PRN Reason: HYPOGLYCEMIA PROTOCOL Epoetin Sean (Procrit) 7,500 units SC Q7D [facility] Last Admin: 05/03/18 11:22 Dose: 7,500 units Gabapentin (Neurontin) 100 mg PO TID [facility] Last Admin: 05/04/18 07:53 Dose: 100 mg Glucagon (Glucagon) 1 mg IM PRN PRN PRN Reason: HYPOGLYCEMIA PROTOCOL Dextrose/Water (D5w) 1,000 mls @ 0 mls/hr IV INF PRN PRN Reason: HYPOGLYCEMIA PROTOCOL Insulin Glargine 15 units/ (Miscellaneous Medication) 0.15 mls @ 0 mls/hr [facility] Last Admin: 05/04/18 07:53 Dose: 0.15 mls Insulin Human Lispro (Humalog) 0 units SC .MODERATE SLIDING SC PRN; Protocol PRN Reason: MODERATE SLIDING SCALE Last Admin: 05/03/18 18:04 Dose: 4 unit Melatonin (Melatonin) 4.5 mg PO [facility] Last Admin: 05/03/18 21:51 Dose: 4.5 mg Polyethylene Glycol (Miralax) 17 gm PO DAILY PRN PRN Reason: Constipation Sodium Chloride (Flush - Normal Saline) 10 ml IVF PRN PRN PRN Reason: Saline Flush Last Admin: 05/02/18 21:57 Dose: 10 ml Tramadol HCl (Ultram) 25 mg PO BIDPRN PRN PRN Reason: Pain Last Admin: 05/04/18 10:54 Dose: 25 mg
[2018-05-04] MEDS ORDERED: CEFAZOLIN/Water 2 GM/20 ML SYRINGE SLOW IVP SCH (15:00)
[2018-05-04] MEDS: HumaLOG 300 UNITS/3 ML VIAL SC PRN (16:48)
--- NOTE | 2018-05-04 18:01 | PRG ---
DATE OF SERVICE: 05/04/2018 RENAL MEDICINE SUBJECTIVE: Mr. Mancera is an 78-year-old white male who was initiated for dialysis due to the volu me overload and progressive azotemia. He inadvertently pulled out his dialysis catheter. It was sug gested to the family that the patient can go to hospice and discontinue dialysis. However, the daugh Jagruti castrejon called me and asked me several more questions. I did tell the family that they can choose withdrawal of dialysis and/or continuation of dialysis. According to the daughters, the patie nt is willing to proceed with the dialysis and discontinue it in the future if he will have a hard ti me. For that reason, I have reconsulted Dr. Mirza for placement of a cuffed hemodialysis catheter a gain. OBJECTIVE: VITAL SIGNS: Blood pressure is 147/82, heart rate 60, respiratory rate 20, temperature 98.4, pulse o x 96% room air. GENERAL: Awake, alert, comfortable, not in distress. SKIN: Adequate turgor. HEENT: He has pinkish conjunctivae. Anicteric sclerae. NECK: No neck mass, no carotid bruits, no JVD. CHEST: No deformities. LUNGS: Decreased breath sounds. HEART: Normal sinus rhythm. No murmur, no gallops, no rubs. ABDOMEN: Globular, soft, nontender. Positive for bilateral leg amputation. MEDICATIONS: Medications of 05/04/2018 reviewed. LABORATORY DATA: Laboratories of 05/04/2018, white count 10.9, hemoglobin 9.8. Sodium 138, [place] m 4.0, chloride 100, carbon dioxide 28, BUN 51, creatinine 3.77. ASSESSMENT AND PLAN: 1. Chronic renal failure -- consider initiating dialysis. The family would like to proceed with ingris lysis as well as the patient. I have reconsulted Dr. Mirza for placement again of the cuffed hemodi alysis catheter. Please note, he has already an arteriovenous fistula. Consult caseworker protective services for out patient dialysis placement. 2. Anemia, continuing 3 times a week Epogen.
[2018-05-04] MEDS: Melatonin 3 MG TAB PO SCH (20:38)
[2018-05-04] MEDS: Atorvastatin Calcium 40 MG TAB PO SCH (20:38)
[2018-05-05 05:03] LABS: Albumin 3.4 g/dL (3.4-4.8); Anion Gap 14 mmol/L (10-20); BUN (Urea Nitrogen) 62 mg/dL (8.4-25.7); BUN/Creatinine Ratio 16.19; Calc. Creatinine Clearance 20 mL/min (70-130); Calcium 8.8 mg/dL (7.8-10.44); Carbon Dioxide 27 mmol/L (23-31); Chloride 97 mmol/L (98-107); Estimated GFR-MDRD 15; Glucose 123 mg/dL (83-110); Phosphorus 5.4 mg/dL (2.3-4.7); Potassium 3.8 mmol/L (3.5-5.1); Sodium 134 mmol/L (136-145)
[2018-05-05] MEDS: Carvedilol 3.125 MG TAB PO SCH ×2 (05:58→16:23)
[2018-05-05] MEDS ORDERED: CEFAZOLIN 2 GM/50 ML BAG IV SCH (06:15)
[2018-05-05] MEDS ORDERED: Lidocaine 2% w/Epinephrine 1:200K 20 ML VIAL ONE (06:44)
[2018-05-05] MEDS ORDERED: Bupivacaine HCl 0.5%/Epinephrine 1:200,000/PF 30 ml Vial ONE (06:44)
[2018-05-05] MEDS ORDERED: Heparin 10,000 UNITS/1 ML VIAL ONE (06:44)
[2018-05-05] MEDS ORDERED: Lidocaine 2% PF 5 ML VIAL ONE (06:45)
[2018-05-05] MEDS ORDERED: Fentanyl 100 MCG/2 ML VIAL ONE (07:36)
[2018-05-05] MEDS ORDERED: Sodium Chloride 0.9% 20 ML ONE (07:44)
[2018-05-05] MEDS ORDERED: Ondansetron HCl/PF 4 MG/2 ML Vial IVP PRN (08:02)
[2018-05-05] MEDS ORDERED: Promethazine HCl 25 MG/ML VIAL IM PRN (08:02)
[2018-05-05] MEDS ORDERED: Promethazine HCl 25 MG/ML VIAL SLOW IVP PRN (08:02)
--- NOTE | 2018-05-05 08:40 | OP ---
DATE OF PROCEDURE: 05/05/2018 PREOPERATIVE DIAGNOSIS: End-stage renal disease. The patient removed his hemodialysis catheter. POSTOPERATIVE DIAGNOSIS: End-stage renal disease. The patient removed his hemodialysis catheter. PROCEDURE: Right internal jugular cuffed-tunneled hemodialysis catheter. SURGEON: Dr. Philip Mirza. ANESTHESIA: TIVA, local 0.5% Marcaine with epinephrine 30 mL mixed with Xylocaine, 10 mL. Ultrasound fluoroscopy used. PROCEDURE IN DETAIL: Patient was taken to the operating room where under general intravenous sedatio n, neck and chest prepped with ChloraPrep, draped in routine fashion. Under ultrasound guidance, the right internal jugular vein was cannulated with trocar catheter and J-wire threaded. Trocar cathete r removed. Skin incised and enlarged sharply. Stab incision made over the right chest, and using th e tunneling device, the precurved angiodynamics cuffed-tunneled hemodialysis catheter tunneled betwee n the 2 incisions, placing the fabric cuff beneath the skin exit site and catheter secured with 2 int errupted sutures of 3-0 nylon. Smaller medium-sized dilators placed over the J-wire into the interna l jugular vein and removed dilator and pull-away sheath placed over the J-wire in superior vena cava and dilator and J-wire removed. Catheter placed with pull-away sheath. Platysma approximated with 4 -0 Monocryl, skin with subdermal 4-0 Monocryl, and fluoroscopic images revealed good line catheter pl acement. Each port aspirated blood and flushed with saline solution and then heparinized saline solu tion with 1000 units heparin per mL indicated volume of the port. Patient tolerated the procedure we ll.
[2018-05-05] MEDS: Gabapentin 100 MG CAP PO SCH ×3 (09:07→20:01)
[2018-05-05] MEDS: Aspirin 81 mg Enteric Coated Tablet PO SCH (09:07)
[2018-05-05] MEDS: Insulin Glargine 15 UNITS in Pre-Filled Syringe 1 EACH SC SCH (09:48)
--- NOTE | 2018-05-05 10:28 | RAD ---
PORTABLE CHEST ONE VIEW: Date: 05-05-18 Time: 8:25 a.m. History: Chest pain. FINDINGS/IMPRESSION: Comparison is made with exam of 04-29-18. There are changes of median sternotomy. The heart size is enlarged. The aorta is tortuous. Left sided internal jugular central line remains in place with tip in the projection of the SVC. Right internal jugular dialysis catheter is present with tip in the direction of the SVC. No focal areas of consoli dation, pneumothoraces, pantera pulmonary edema or large effusions are seen. POS: [facility]
--- NOTE | 2018-05-05 11:46 | PDOC.PN ---
- Subjective Encounter Start Date: 05/05/18 Encounter Start Time: 11:00 Subjective: awake, no sob -: is calm, a big groggy due to am anesthesia - Objective MAR Reviewed: Yes Vital Signs & Weight: Vital Signs (12 hours) Temp Pulse Resp BP Pulse Ox 05/05/18 08:00 97 05/05/18 06:00 98.1 F 59 L 18 157/65 H 97 Weight Weight 203 lb 12.8 oz I&O: 05/04/18 05/05/18 05/06/18 06:59 06:59 06:59 Intake Total 480 1140 360 Balance 480 1140 360 Result Diagrams: 05/04/18 10:00 05/05/18 04:35 Additional Labs: Accuchecks 05/05/18 05/04/18 05/04/18 06:03 20:46 16:18 POC Glucose 118 H 172 H 254 H 05/04/18 10:55 POC Glucose 183 H Phys Exam - Physical Examination HEENT: PERRLA, sclera anicteric Neck: no JVD, supple Respiratory: no wheezing, no rales Cardiovascular: RRR, no significant murmur Gastrointestinal: soft, 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, positive bowel sounds Musculoskeletal: no edema, pulses present Neurological: non-focal, moves all 4 limbs Dx/Plan (1) ESRD (end stage renal disease) on dialysis Code(s): N18.6 - END STAGE RENAL DISEASE; Z99.2 - DEPENDENCE ON RENAL DIALYSIS Status: Acute Comment: initiated on HD this admission, held now (2) Amputation leg, bilat Code(s): S88.911A - COMPLETE TRAUMATIC AMPUTATION OF R LOW LEG, LEVEL UNSP, INIT ; S88.912A - COMPLETE TRAUMATIC AMPUTATION OF L LOW LEG, LEVEL UNSP, INIT Status: Chronic Qualifiers: Encounter type: sequela Qualified Code(s): S88.911S - Complete traumatic amputation of right lower leg, level unspecified, sequela; S88.912S - Complete traumatic amputation of left lower leg, level unspecified, sequela Comment: has left bka and right aka (3) Anemia, normocytic normochromic Code(s): D64.9 - ANEMIA, UNSPECIFIED Status: Chronic Comment: IV iron, Erythropoetin to address iron deficiency and anemia of chronic disease (4) CAD (coronary artery disease) Code(s): I25.10 - ATHSCL HEART DISEASE OF [place] CORONARY ARTERY W/O ANG PCTRS Status: Chronic Qualifiers: Coronary Disease-Associated Artery/Lesion type: [place] artery Associated angina: without angina (5) Chronic combined systolic and diastolic CHF (congestive heart failure) Code(s): I50.42 - CHRONIC COMBINED SYSTOLIC AND DIASTOLIC HRT FAIL Status: Acute Comment: acute exacerbation, stage C (6) Diabetes mellitus type 2 in obese Code(s): E11.69 - TYPE 2 DIABETES MELLITUS WITH OTHER SPECIFIED COMPLICATION; E66.9 - OBESITY, UNSPECIFIED Status: Chronic (7) HLD (hyperlipidemia) Code(s): E78.5 - HYPERLIPIDEMIA, UNSPECIFIED Status: Chronic Qualifiers: Hyperlipidemia type: unspecified (8) HTN (hypertension) Code(s): I10 - ESSENTIAL (PRIMARY) HYPERTENSION Status: Chronic Qualifiers: Hypertension type: essential hypertension (9) PVD (peripheral vascular disease) Code(s): I73.9 - PERIPHERAL VASCULAR DISEASE, UNSPECIFIED Status: Chronic (10) Dementia Code(s): F03.90 - UNSPECIFIED DEMENTIA WITHOUT BEHAVIORAL DISTURBANCE Status: Chronic Qualifiers: Dementia type: unspecified type Dementia behavioral disturbance: with behavioral disturbance Qualified Code(s): F03.91 - Unspecified dementia with behavioral disturbance - Plan got his right IJ HD tunneled cath this morning, had pulled old one out -: likely to restart HD with renal numbers peaking again -: HD per family's request/'s adv -: on asp, coreg, lipitor -: will add small dose of antipsychotic if he get agitated * . Review of Systems - Medications/Allergies Allergies/Adverse Reactions: Allergies Allergy/AdvReac Type Severity Reaction Status Date / Time acetaminophen [From [place]] Allergy pts family Verified 04/18/18 16:26 notes [place] made him violent hydrocodone [From [place]] Allergy pts family Verified 04/18/18 16:26 notes [place] made him violent zolpidem [From Ambien] AdvReac Verified 04/18/18 11:21 Medications: Current Medications Albuterol/Ipratropium (Duoneb) 3 ml NEB Q6H PRN PRN Reason: Dyspnea/Wheezing/SOB Last Admin: 04/25/18 23:17 Dose: 3 ml Aspirin (Ecotrin) 81 mg PO DAILY [facility] Last Admin: 05/05/18 09:07 Dose: 81 mg Atorvastatin Calcium (Lipitor) 40 mg PO HS [facility] Last Admin: 05/04/18 20:38 Dose: 40 mg Carvedilol (Coreg) 3.125 mg PO BID-WM [facility] Last Admin: 05/05/18 05:58 Dose: 3.125 mg Cefazolin Sodium/Dextrose (Ancef 2 Gm/50 Ml) 2 gm IV ONCALL-OR [facility] Stop: 05/05/18 12:00 Dextrose/Water (Dextrose 50%) 25 gm IVP PRN PRN PRN Reason: HYPOGLYCEMIA PROTOCOL Epoetin Sena (Procrit) 7,500 units SC Q7D [facility] Last Admin: 05/03/18 11:22 Dose: 7,500 units Gabapentin (Neurontin) 100 mg PO TID [facility] Last Admin: 05/05/18 09:07 Dose: 100 mg Glucagon (Glucagon) 1 mg IM PRN PRN PRN Reason: HYPOGLYCEMIA PROTOCOL Dextrose/Water (D5w) 1,000 mls @ 0 mls/hr IV INF PRN PRN Reason: HYPOGLYCEMIA PROTOCOL Insulin Glargine 15 units/ (Miscellaneous Medication) 0.15 mls @ 0 mls/hr SC QAM [facility] Last Admin: 05/05/18 09:48 Dose: 0.15 mls Insulin Human Lispro (Humalog) 0 units SC .MODERATE SLIDING SC PRN; Protocol PRN Reason: MODERATE SLIDING SCALE Last Admin: 05/04/18 16:48 Dose: 6 unit Melatonin (Melatonin) 4.5 mg PO [facility] Last Admin: 05/04/18 20:38 Dose: 4.5 mg Polyethylene Glycol (Miralax) 17 gm PO DAILY PRN PRN Reason: Constipation Sodium Chloride (Flush - Normal Saline) 10 ml IVF PRN PRN PRN Reason: Saline Flush Last Admin: 05/02/18 21:57 Dose: 10 ml Tramadol HCl (Ultram) 25 mg PO BIDPRN PRN PRN Reason: Pain Last Admin: 05/04/18 22:16 Dose: 25 mg
[2018-05-05 13:32] VITALS: BMI 28.4
[2018-05-05] MEDS ORDERED: PROPOFOL 200 MG/20 ML VIAL ONE (15:08)
--- NOTE | 2018-05-05 19:06 | PRG ---
DATE OF SERVICE: 05/05/2018 SUBJECTIVE: Mr. Mancear is an 78-year-old white male who has been initiated on dialysis. He came i n with CHF. He inadvertently pulled out his dialysis catheter. This was replaced by Dr. Mirza this morning. After the said procedure, he underwent dialysis for 3 hours. He tolerated said treatment. No complaints of chest pain or shortness of breath. OBJECTIVE: VITAL SIGNS: Blood pressure 132/57, heart rate 66, respiratory rate 20, temperature 97.2, pulse ox 9 7%. GENERAL: Noted to be awake, alert, comfortable, not in distress. SKIN: Adequate turgor. HEENT: Pinkish conjunctivae, anicteric sclerae. NECK: No neck mass, no carotid bruits, no JVD. CHEST: No deformities. LUNGS: Clear breath sounds. HEART: Normal sinus rhythm. No murmur, no gallops, no rubs. ABDOMEN: Globular, soft, nontender. EXTREMITIES: Status post bilateral leg amputation. MEDICATIONS: Of May 05, 2018, reviewed. LABORATORY RESULTS: Of May 04, 2018, reviewed. On May 05, 2018, BUN 62, creatinine , potassium 3.8, phosphorus 5.4. ASSESSMENT AND PLAN: 1. Acute kidney injury/chronic renal failure - I feel most likely end-stage renal disease, we will c ontinue current maintenance hemodialysis. Hemodialysis/fluid removal as tolerated. Awaiting outpati ent hemodialysis placement. 2. Congestive heart failure, clinically improved. 3. Anemia, continuing Epogen regimen.
[2018-05-05] MEDS: Atorvastatin Calcium 40 MG TAB PO SCH (20:01)
[2018-05-05] MEDS: Melatonin 3 MG TAB PO SCH (20:02)
[2018-05-06 06:25] LABS: Albumin 3.3 g/dL (3.4-4.8); Anion Gap 15 mmol/L (10-20); BUN (Urea Nitrogen) 32 mg/dL (8.4-25.7); BUN/Creatinine Ratio 12.17; Calc. Creatinine Clearance 29 mL/min (70-130); Calcium 8.2 mg/dL (7.8-10.44); Carbon Dioxide 27 mmol/L (23-31); Chloride 100 mmol/L (98-107); Estimated GFR-MDRD 24; Glucose 97 mg/dL (83-110); Phosphorus 3.9 mg/dL (2.3-4.7); Potassium 3.7 mmol/L (3.5-5.1); Sodium 138 mmol/L (136-145)
[2018-05-06 07:39] VITALS: BP 130/63; TEMP 99.1
[2018-05-06] MEDS: Aspirin 81 mg Enteric Coated Tablet PO SCH (08:59)
[2018-05-06] MEDS: Insulin Glargine 15 UNITS in Pre-Filled Syringe 1 EACH SC SCH (08:59)
[2018-05-06] MEDS: Gabapentin 100 MG CAP PO SCH ×2 (08:59→16:12)
[2018-05-06] MEDS: Carvedilol 3.125 MG TAB PO SCH (09:00)
--- NOTE | 2018-05-06 12:24 | PDOC.PN ---
- Subjective Encounter Start Date: 05/06/18 Encounter Start Time: 09:15 Subjective: awake, oriented well -: no sob, feels better - Objective MAR Reviewed: Yes Vital Signs & Weight: Vital Signs (12 hours) Temp Pulse Resp BP Pulse Ox 05/06/18 07:34 99.1 F 67 18 130/63 92 L 05/06/18 04:00 98.4 F 63 18 137/64 94 L Weight Admit Weight 215 lb Weight 203 lb 12.8 oz I&O: 05/05/18 05/06/18 05/07/18 06:59 06:59 06:59 Intake Total 1140 900 Balance 1140 900 Result Diagrams: 05/04/18 10:00 05/06/18 05:35 Additional Labs: Accuchecks 05/06/18 05/06/18 05/05/18 11:06 04:08 19:36 POC Glucose 117 H 84 180 H 05/05/18 16:29 POC Glucose 113 H Phys Exam - Physical Examination HEENT: PERRLA, moist MMs Neck: no JVD, supple Respiratory: no wheezing, no rales Cardiovascular: RRR, no significant murmur Gastrointestinal: soft, non-tender, positive bowel sounds Musculoskeletal: no edema, pulses present Neurological: non-focal, moves all 4 limbs Psychiatric: A&O x 3 Dx/Plan (1) ESRD (end stage renal disease) on dialysis Code(s): N18.6 - END STAGE RENAL DISEASE; Z99.2 - DEPENDENCE ON RENAL DIALYSIS Status: Acute Comment: initiated on HD this admission, held and restarted back 05/05/2018 (2) Amputation leg, bilat Code(s): S88.911A - COMPLETE TRAUMATIC AMPUTATION OF R LOW LEG, LEVEL UNSP, INIT ; S88.912A - COMPLETE TRAUMATIC AMPUTATION OF L LOW LEG, LEVEL UNSP, INIT Status: Chronic Qualifiers: Encounter type: sequela Qualified Code(s): S88.911S - Complete traumatic amputation of right lower leg, level unspecified, sequela; S88.912S - Complete traumatic amputation of left lower leg, level unspecified, sequela Comment: has left bka and right aka (3) Anemia, normocytic normochromic Code(s): D64.9 - ANEMIA, UNSPECIFIED Status: Chronic Comment: IV iron, Erythropoetin to address iron deficiency and anemia of chronic disease (4) CAD (coronary artery disease) Code(s): I25.10 - ATHSCL HEART DISEASE OF [place] CORONARY ARTERY W/O ANG PCTRS Status: Chronic Qualifiers: Coronary Disease-Associated Artery/Lesion type: [place] artery Associated angina: without angina (5) Chronic combined systolic and diastolic CHF (congestive heart failure) Code(s): I50.42 - CHRONIC COMBINED SYSTOLIC AND DIASTOLIC HRT FAIL Status: Acute Comment: acute exacerbation, stage C (6) Diabetes mellitus type 2 in obese Code(s): E11.69 - TYPE 2 DIABETES MELLITUS WITH OTHER SPECIFIED COMPLICATION; E66.9 - OBESITY, UNSPECIFIED Status: Chronic (7) HLD (hyperlipidemia) Code(s): E78.5 - HYPERLIPIDEMIA, UNSPECIFIED Status: Chronic Qualifiers: Hyperlipidemia type: unspecified (8) HTN (hypertension) Code(s): I10 - ESSENTIAL (PRIMARY) HYPERTENSION Status: Chronic Qualifiers: Hypertension type: essential hypertension (9) PVD (peripheral vascular disease) Code(s): I73.9 - PERIPHERAL VASCULAR DISEASE, UNSPECIFIED Status: Chronic (10) Dementia Code(s): F03.90 - UNSPECIFIED DEMENTIA WITHOUT BEHAVIORAL DISTURBANCE Status: Chronic Qualifiers: Dementia type: unspecified type Dementia behavioral disturbance: with behavioral disturbance Qualified Code(s): F03.91 - Unspecified dementia with behavioral disturbance - Plan HD per nephr adv -: dc plan per nephr adv, is awaiting outpt chair, is from [facility] -: continue aspirin, coreg, lipitor, gabapentin and lantus -: he had sun downing episodes yesterday after HD again and was throwing thing -: -s per staff. * . Review of Systems - Medications/Allergies Allergies/Adverse Reactions: Allergies Allergy/AdvReac Type Severity Reaction Status Date / Time acetaminophen [From [place]] Allergy pts family Verified 04/18/18 16:26 notes [place] made him violent hydrocodone [From [place]] Allergy pts family Verified 04/18/18 16:26 notes [place] made him violent zolpidem [From Ambien] AdvReac Verified 04/18/18 11:21 Medications: Current Medications Albuterol/Ipratropium (Duoneb) 3 ml NEB Q6H PRN PRN Reason: Dyspnea/Wheezing/SOB Last Admin: 04/25/18 23:17 Dose: 3 ml Aspirin (Ecotrin) 81 mg PO DAILY [facility] Last Admin: 05/06/18 08:59 Dose: 81 mg Atorvastatin Calcium (Lipitor) 40 mg PO HS [facility] Last Admin: 05/05/18 20:01 Dose: 40 mg Carvedilol (Coreg) 3.125 mg PO BID[facility] Last Admin: 05/06/18 09:00 Dose: 3.125 mg Dextrose/Water (Dextrose 50%) 25 gm IVP PRN PRN PRN Reason: HYPOGLYCEMIA PROTOCOL Epoetin Sean (Procrit) 7,500 units SC Q7D [facility] Last Admin: 05/03/18 11:22 Dose: 7,500 units Gabapentin (Neurontin) 100 mg PO TID [facility] Last Admin: 05/06/18 08:59 Dose: 100 mg Glucagon (Glucagon) 1 mg IM PRN PRN PRN Reason: HYPOGLYCEMIA PROTOCOL Dextrose/Water (D5w) 1,000 mls @ 0 mls/hr IV INF PRN PRN Reason: HYPOGLYCEMIA PROTOCOL Insulin Glargine 15 units/ (Miscellaneous Medication) 0.15 mls @ 0 mls/hr [facility] Last Admin: 05/06/18 08:59 Dose: 0.15 mls Insulin Human Lispro (Humalog) 0 units SC .MODERATE SLIDING SC PRN; Protocol PRN Reason: MODERATE SLIDING SCALE Last Admin: 05/04/18 16:48 Dose: 6 unit Melatonin (Melatonin) 4.5 mg PO [facility] Last Admin: 05/05/18 20:02 Dose: 4.5 mg Polyethylene Glycol (Miralax) 17 gm PO DAILY PRN PRN Reason: Constipation Sodium Chloride (Flush - Normal Saline) 10 ml IVF PRN PRN PRN Reason: Saline Flush Last Admin: 05/02/18 21:57 Dose: 10 ml Tramadol HCl (Ultram) 25 mg PO BIDPRN PRN PRN Reason: Pain Last Admin: 05/04/18 22:16 Dose: 25 mg
[2018-05-06 12:37] LABS: HBSAB Concentration 1.01 mIU/mL; HBSAg Index 0.22 S/CO (0-0.99); Hep B Core Total Ab Non-Reactive (NonReactive); Hep B Core Total Index 0.07 S/CO (0-0.79); Hep B Surf AB Non-Reactive (NonReactive); Hep B Surf Ag Non-Reactive S/CO (NonReactive); Hep C IgG Ab Non-Reactive (NonReactive); Hep C Index 0.09 S/CO (0-0.79)
--- NOTE | 2018-05-06 22:05 | DIS ---
DATE OF ADMISSION: 04/24/2018 DATE OF DISCHARGE: 05/06/2018 DISCHARGE DISPOSITION: To [facility]. PRIMARY DISCHARGE DIAGNOSES: Acute renal failure/end-stage renal disease on hemodialysis, chronic an emia due to renal disease, history of left below knee amputation, right above knee amputation. SECONDARY DISCHARGE DIAGNOSES: Coronary artery disease; history of congestive heart failure with sys tolic dysfunction, stage C; diabetes mellitus, type 2; dyslipidemia; hypertension; peripheral vascula r disease; dementia with behavioral disturbance. PROCEDURES DONE DURING HOSPITALIZATION: Patient had chest x-ray done on the day of admission, which showed cardiomegaly with pulmonary vascular congestion. Echo with 2D Doppler showed EF of 50% to 55% , had right IJ cuffed tunneled hemodialysis catheter and left IJ central line placed by Dr. Mirza. Patient had AV fistula placed in the left arm on the by Dr. Mirza. On 05/05/2018, patient had placement of right IJ cuffed tunnel hemodialysis catheter as patient removed the previous one, this w as done on the by Dr. Mirza. H&H 9 and 30, platelets 160. Discharge BUN and creatinine 32 and 2.6. On arrival, creatinine was 4, BUN was 113. BNP was 1272. Serum iron 28, ferritin 93. Hep C antibody nonreactive, hepatitis B core total antibody nonreactive, hepatitis B surface antigen nonrea ctive. INPATIENT CONSULTS: Dr. Sainz for nephrology, Dr. Mirza for general surgery. DISCHARGE MEDICATIONS: Norvasc 5 mg p.o. daily, atorvastatin 40 mg p.o. at bedtime, Coreg 25 mg p.o. twice daily, Colace 100 mg p.o. daily, gabapentin 100 mg p.o. 3 times daily, NovoLog sliding scale, Lantus 25 units subcutaneous q.a.m., melatonin 5 mg p.o. at bedtime, MiraLax 17 grams daily, ferrous sulfate 325 mg p.o. twice daily, aspirin 81 mg p.o. daily, hydralazine 25 mg p.o. 3 times daily, Imdu r 60 mg p.o. daily. ALLERGIES: HYDROCODONE, ZOLPIDEM, and TYLENOL. DISCHARGE PLAN: Patient to follow up with Dr. Sainz as advised and primary care physician in 1 week. BRIEF COURSE DURING HOSPITALIZATION: Patient initially got admitted on the after he sent over f [facility] group home for elevated BUN and creatinine. Patient had cardiomegaly with volume overload and pulmonary vascular congestion. He has had consultation with Dr. Sainz for Nephrology. Patient's initi al BUN and creatinine was 113 and 4 with a BNP of 1272. Patient had hemodialysis tunnel catheter maurice toby and was started on hemodialysis, after there was a fluid resuscitation. On 05/03/2018, patient p ulled out his tunneled hemodialysis catheter due to sundowning and aggressive behavior with his under lying dementia. Family consultations were held with patient and his daughter and Dr. Sainz. The famil y wanted to pursue dialysis again and Dr. Mirza was reconsulted for placing a second tunnel catheter . He has had 2 sessions of hemodialysis. Patient has known history of sundowning with sometimes agg ressive behavior when he is out of his family surroundings. He is hemodynamically stable. [facility], he has been cleared by Dr. Sainz for discharge. A total of 35 minutes was spent on discharge plan. Please see a [id number] documentation on [facility] for the day of discharge.
--- NOTE | 2018-05-07 13:29 | EKG ---
Test Reason : CRITICAL LABS Blood Pressure : / mmHG Vent. Rate : 061 BPM Atrial Rate : 060 BPM P-R Int : 000 ms QRS Dur : 102 ms QT Int : 426 ms P-R-T Axes : 000 025 015 degrees QTc Int : 428 ms Junctional rhythm Abnormal ECG Confirmed by OLIVIER FRANK [id number]), editorial director ANNE ANDERSON ([id number]) on 05/07/2018 1:29:04 PM Referred By: MARCIN FRANK Confirmed By:OLIVIER FRANK
== END 2018-05-06 16:53 | DRG 673 ==
LOC: ERS 19:06 → 2SE 21:38 → 2NO 04-26 11:26 → T4-A 05-03 11:15
PROVIDERS: ADMIT Family Medicine; ATTEND Family Medicine
PROC: 0JH63XZ Insertion of Tunneled Vascular Access Device into Chest Subcutaneous Tissue and Fascia, Percutaneous Approach (ICD-10-PCS; 2018-04-29)
PROC: 02HV33Z Insertion of Infusion Device into Superior Vena Cava, Percutaneous Approach (ICD-10-PCS; 2018-04-29)
PROC: 5A1D70Z Performance of Urinary Filtration, Intermittent, Less than 6 Hours Per Day (ICD-10-PCS; 2018-04-30)
PROC: 031C0ZF Bypass Left Radial Artery to Lower Arm Vein, Open Approach (ICD-10-PCS; principal; 2018-05-01)
PROC: 0JH63XZ Insertion of Tunneled Vascular Access Device into Chest Subcutaneous Tissue and Fascia, Percutaneous Approach (ICD-10-PCS; 2018-05-05)
PROC: 02HV33Z Insertion of Infusion Device into Superior Vena Cava, Percutaneous Approach (ICD-10-PCS; 2018-05-05)
DX: N17.9 Acute kidney failure, unspecified (principal); J96.01 Acute respiratory failure with hypoxia; I50.43 Acute on chronic combined systolic (congestive) and diastolic (congestive) heart failure; G93.41 Metabolic encephalopathy; I13.2 Hypertensive heart and chronic kidney disease with heart failure and with stage 5 chronic kidney disease, or end stage renal disease; I42.9 Cardiomyopathy, unspecified; F03.91 Unspecified dementia, unspecified severity, with behavioral disturbance; N18.6 End stage renal disease; G54.7 Phantom limb syndrome without pain; D63.1 Anemia in chronic kidney disease; E11.22 Type 2 diabetes mellitus with diabetic chronic kidney disease; J44.9 Chronic obstructive pulmonary disease, unspecified; E11.51 Type 2 diabetes mellitus with diabetic peripheral angiopathy without gangrene; I25.10 Atherosclerotic heart disease of native coronary artery without angina pectoris; D50.9 Iron deficiency anemia, unspecified; E78.5 Hyperlipidemia, unspecified; E66.9 Obesity, unspecified; Z89.511 Acquired absence of right leg below knee; Z89.612 Acquired absence of left leg above knee; Z87.891 Personal history of nicotine dependence; Z95.1 Presence of aortocoronary bypass graft; Z79.82 Long term (current) use of aspirin; Z79.4 Long term (current) use of insulin; Z68.28 Body mass index [BMI] 28.0-28.9, adult; Z88.5 Allergy status to narcotic agent; Z88.8 Allergy status to other drugs, medicaments and biological substances
CPT/HCPCS: 36415; 36416; 71045; 80048; 80053; 80069; 82553; 82728; 83540; 83550; 83690; 83735; 83880; 83970; 84484; 85025; 86580; 86704; 86706; 86803; 87340; 90935; 93005; 93306; 93798; 93970; 94640; 96374; A4216; C1752; C1769; G0257; G0365; G8978-GP-CN; G8979-GP-CK; J0670; J1642; J1644; J1940; J2001; J2060; J2270; J2704; J2720; J2916; J3010; J3486; J7050; J7620; Q4081

== ENCOUNTER 2018-10-16 09:31 | Inpatient (IN) | payer MEDICARE, MEDICAID ==
[2018-10-16 10:30] LABS: #Eosinphils 0.5 thou/uL (0.0-0.7); #Lymphocytes 2.7 thou/uL (1.20-3.40); #Neutrophils 6.7 thou/uL (1.40-6.50); %Basophils 0.3 % (0.0-1.0); %Eosinophils 4.9 % (0.0-10.0); %Lymphocytes 24.4 % (21.0-51.0); %Monocytes 9.1 % (0.0-10.0); %Neutrophils 61.3 % (42.0-75.0); Hemoglobin 8.2 g/dL (14.0-18.0); Mean Corpuscular HGB CONC 35.5 g/dL (32.0-36.0); Mean Corpuscular Hemoglobin 35.3 pg (27.0-31.0); Mean Corpuscular Volume 99.3 fL (78.0-98.0); Mean Platelet Volume 8.1 fL (7.4-10.4); Platelet Count 200 thou/uL (130-400); RBC Distribution Width 13.1 % (11.5-14.5); Red Blood Cell (RBC) Count 2.34 mill/uL (4.70-6.10); White Blood Cell (WBC) Count 10.9 thou/uL (4.8-10.8)
[2018-10-16 10:37] LABS: INR-International Normal Ratio 1.2; PTT 29.9 SEC (22.9-36.1); Prothrombin Time 14.9 SEC (12.0-14.7)
[2018-10-16] MEDS ORDERED: Pantoprazole 40 MG VIAL ONE (10:52)
[2018-10-16 10:58] LABS: ALT (SGPT) 19 U/L (8-55); AST (SGOT) 12 U/L (5-34); Albumin 3.2 g/dL (3.4-4.8); Alkaline Phosphatase 62 U/L (40-150); Anion Gap 15 mmol/L (10-20); BUN (Urea Nitrogen) 90 mg/dL (8.4-25.7); Bilirubin, Total 0.3 mg/dL (0.2-1.2); Calc. Creatinine Clearance 0 mL/min (70-130); Calcium 8.6 mg/dL (7.8-10.44); Carbon Dioxide 26 mmol/L (23-31); Chloride 98 mmol/L (98-107); Estimated GFR-MDRD 12; Globulin 2.5 g/dL (2.4-3.5); Glucose 301 mg/dL (83-110); Iron 109 ug/dL (65-175); Iron Binding Capacity, Total 209 mcg/dL (261-462); Potassium 4.8 mmol/L (3.5-5.1); Protein, Total 5.7 g/dL (5.8-8.1); Sodium 134 mmol/L (136-145)
[2018-10-16 12:13] LABS: Troponin I 0.031 ng/mL (< 0.028)
--- NOTE | 2018-10-16 14:05 | CT ---
CT abdomen with contrast CT pelvis with contrast: DATE: 10/16/2018 HISTORY: 78-year-old male with lower GI bleeding COMPARISON: None TECHNIQUE: IV injection of iodinated contrast media:100 mm [id number] Oral contrast media:Not administered FINDINGS: Heavy atherosclerotic calcination of abdominal aorta, common iliac arteries, internal iliac arteries, and external aortic arteries. At least moderate stenosis at origin of left common iliac artery. No aneurysm. Bilateral kidneys are slightly small. No hydronephrosis. Large number of diverticula throughout sigmoid colon. No definitive evidence of sigmoid colonic diver ticulitis. No small bowel dilation. No ascites or pneumoperitoneum. No major pathology identified involving liver, spleen, adrenals, or bladder. Cecum is medialized. Normal appendix. There is an appr oximately 2 x 1.5 x 1.5 cm focal low-attenuation lesion abutting the ventral surface of the junction between the body and tail of the pancreas. No surrounding fat stranding. No pancreatic ducta l dilation. No pancreatic calcifications. Similar appearing 1.6 x 1.4 x 1.8 cm low-density lesion exophytically protruding from pancreatic head. There is a 3.1 x 1.3 x 0.7 cm mildly enlarged sae he patis lymph node. No retroperitoneal lymphadenopathy. No ascites or pneumoperitoneum. IMPRESSION: 1. Sigmoid colonic diverticulosis without evidence of diverticulitis. 2. There are 2 small cystic lesions in the pancreas, one at the head and the other at the body/tail j unction. Possibility of low-grade cystic pancreatic neoplasms. Recommend serial follow-up CTs of abdomen with contrast, beginning in 6 months.
[2018-10-16] MEDS ORDERED: Ondansetron PF 4 MG/2 ML Vial IVP PRN (14:51)
[2018-10-16] MEDS ORDERED: Dextrose 5% in Water 1,000 ML IV PRN (14:51)
[2018-10-16] MEDS ORDERED: Dextrose 50% Abboject 50 ML SYRINGE SLOW IVP PRN (14:51)
[2018-10-16] MEDS ORDERED: Ondansetron ODT 4 MG TAB PO PRN (14:51)
[2018-10-16] MEDS ORDERED: PHENYLEPHRINE-NS 100 MCG/ML 10 ML SYRINGE ONE (16:12)
[2018-10-16] MEDS ORDERED: Ondansetron PF 4 MG/2 ML Vial ONE (16:12)
[2018-10-16] MEDS ORDERED: Succinylcholine Chloride 20 MG/ML 10 ml SYRINGE FS ONE (16:12)
[2018-10-16] MEDS ORDERED: PROPOFOL 200 MG/20 ML VIAL ONE (16:12)
[2018-10-16] MEDS ORDERED: ePHEDrine 50 MG/ML VIAL ONE (16:12)
[2018-10-16] MEDS ORDERED: Lidocaine 2% PF 5 ML VIAL ONE (16:12)
[2018-10-16] MEDS ORDERED: ISOVUE-370 76%-LOCM 1 ML ONE (16:42)
[2018-10-16 16:43] VITALS: BMI 55.8
[2018-10-16] MEDS: Sodium Chloride 0.9% 1,000 ML IV SCH (17:00)
[2018-10-16 17:20] LABS: Troponin I 0.026 ng/mL (< 0.028)
[2018-10-16] MEDS ORDERED: GoLYTELY 4,000 ml Bottle PO SCH (17:45)
[2018-10-16] MEDS: HumaLOG 300 UNITS/3 ML VIAL SC PRN (18:03)
--- NOTE | 2018-10-16 18:33 | CON ---
DATE OF CONSULTATION: 10/16/2018 REASON FOR CONSULTATION: Melena, GI bleed. CONSULTING PHYSICIAN: Sameer Graham MD HISTORY OF PRESENT ILLNESS: The patient is an 78-year-old male with past medical history of end-stage renal disease on hemodialysis, anemia of renal disease, coronary artery disease status post CABG, congestive heart failure, diabetes, hyperlipidemia, hypertension, peripheral vascular disease, and mild dementia, presenting with complaints of melena/hematochezia. He states that he was in his usual state of health until this morning when he woke up and had the sensation of a bowel movement. Upon having a bowel movement, he noticed that it was initially bright red blood per rectum that was liquid in consistency, and did not require any additional effort in order to defecate. However, over the course of the next 4 to 6 hours, he had approximately 6 to 10 additional bowel movements that were either consider maroonish in color or black when he presented to the ER for further evaluation. With the appearance of this pain, it was also associated with increased right lower quadrant abdominal pain that was characterized as a cramping type sensation lasting for 20 to 30 minutes in duration, nonradiating, and reached the severity of approximately 5/10. There were no clear exacerbating factors, but better with having a bowel movement. The [facility] and with the appearance of these bloody bowel movements, he was subsequently transferred to [facility] for further evaluation. While in the ER, he was noted to have significant hypotension as well as a decreased H and H when compared to baseline. He responded well to infusion of IV fluids, but continues to have numerous maroon to black bowel movements while in the ED as well. Currently, he denies any nausea, vomiting, fevers, chills, dysphagia, odynophagia, or weight loss. He also denies any significant medication changes, but cannot recall if he has been taking any increased NSAIDs. REVIEW OF SYSTEMS: While the patient is a poor historian, a 10 category review of systems was obtained with all responses negative, except for the pertinent positives as listed in HPI. PAST MEDICAL HISTORY: As per HPI. PAST SURGICAL HISTORY: Bilateral lower extremity amputations with a right bxiwz-iih-cqua amputation and a left txcad-grw-pnnv amputation. He had a 4-vessel coronary artery bypass graft. FAMILY HISTORY: Denies any family history of colonic polyps or GI malignancies. SOCIAL HISTORY: Denies any tobacco, alcohol, or illicit drug use. OUTPATIENT MEDICATIONS: Reviewed. ALLERGIES: HYDROCODONE. PHYSICAL EXAMINATION: VITAL SIGNS: Temperature 99.1, pulse 67, blood pressure 130/63, respiratory rate 18, saturating 92% on 2 L nasal cannula. GENERAL: The patient was lying in bed, in no acute distress. Alert and oriented x4, although speech was somewhat garbled at times. HEENT/NECK: Normocephalic and atraumatic. Neck, supple. No scleral icterus or JVD noted. CARDIOVASCULAR: Regular rate and rhythm with no discernible murmurs, gallops, or rubs. RESPIRATORY: Diminished breath sounds in all lung merchant, but also with poor inspiratory effort as well. No discernible wheezes or rales. ABDOMEN: Hyperactive bowel sounds. Soft, nondistended. Tenderness to palpation in the periumbilical left lower quadrant and right lower quadrant. EXTREMITIES: Right below-knee amputation present as well as a left uwoko-atv-otvg amputation present. No cyanosis, clubbing, or edema in the upper extremities. LABORATORY DATA: CBC with a white blood cell count 10.9, hemoglobin 8.2, hematocrit 23.2, platelets 200. INR 1.2. Iron 109, ferritin 722, TIBC 209. Chemistry with a sodium of 134, potassium 4.8, chloride 98, CO2 of 26, BUN 90, creatinine 4.63, glucose 301, AST 12, ALT 19, alkaline phosphatase 62, total bilirubin 0.3. IMAGING DATA: CT of the abdomen and pelvis was obtained on October 16, 2018, which showed heavy atherosclerotic calcifications within the abdominal aorta, iliac arteries, internal iliac arteries, and external aortic arteries. There was a large number of diverticula present throughout the sigmoid colon, although no presence of colonic diverticulitis. No ascites or pneumoperitoneum were seen. However, there was a 2 x 1.5 x 1.5 cm low-attenuation lesion abutting the ventral surface of the junction between the body and tail of the pancreas as well as a 1.6 x 1.4 x 1.8 cm low-density lesion seen protruding from the pancreatic head. Both of these exhibited a cystic type quality; however, there was no surrounding inflammation or retroperitoneal lymphadenopathy. ASSESSMENT AND PLAN: The patient is an 78-year-old male with past medical history of end-stage renal disease on hemodialysis, anemia of renal disease, coronary artery disease status post 4-vessel coronary artery bypass graft, congestive heart failure, diabetes, hyperlipidemia, hypertension, peripheral vascular disease, and mild dementia presenting with melena concerning for an upper GI bleeding source. Melena. The patient is presenting with the acute onset of maroon to black colored bowel movements with having approximately 6 to 10 of these bloody bowel movements today that have not been associated with passage of stool. While he was being evaluated in the ER, he was noted to have significant hypotension as well as a decreased H and H, but did respond well to IV fluid administration. He does have a significantly elevated BUN to creatinine ratio, which could be more indicative of an upper GI bleed, but he is also on hemodialysis with his normal schedule being Friday, Friday, Friday (Friday being today), so this could be more reflective of his renal disease rather than an acute GI bleeding process. At this point, the differential could include esophagitis, gastritis, peptic ulcer disease, arteriovenous malformation, Dieulafoy lesion and/or GI neoplasm. RECOMMENDATIONS: 1. Would continue to trend the H and H and transfuse as necessary to maintain an H and H of 7/21. 2. Continue to monitor clinically for signs of active GI bleeding. 3. Would continue PPI b.i.d. in light of possible upper GI bleed. 4. Would avoid any NSAIDs. 5. Would keep the patient n.p.o. in anticipation for EGD later on today. If the EGD is negative, I would then prep for colonoscopy given the fact that he has never had a colonoscopy before. Further recommendations to follow EGD. Please call with any questions. Job ID: [id number]
--- NOTE | 2018-10-16 18:44 | OP ---
DATE OF PROCEDURE: 10/16/2018 PROCEDURE PERFORMED: Esophagogastroduodenoscopy (diagnostic). INDICATION FOR PROCEDURE: Melena, GI bleeding. DESCRIPTION OF PROCEDURE: After the risks and benefits of the procedure were explained to the patient, the patient's surrogate, including risks of bleeding, infection, perforation, reactions to anesthesia, aspiration, and/or pain, informed consent was obtained. The patient was then taken to the endoscopy suite, where general anesthesia was administered via Anesthesia support with endotracheal tube intubation. Once the patient was intubated and sedated, the standard gastroscope was introduced into the mouth with intubation of the esophagus, stomach, and the proximal small intestines with the findings listed below. The patient tolerated the procedure well with no immediate perioperative complications. Upon conclusion of the procedure, all equipment was removed from the patient and he was transferred to PACU in satisfactory condition. FINDINGS: Esophagus: Normal-appearing mucosa was seen in the proximal and mid esophagus. [place]-colored mucosa was seen at the GE junction with one tongue of this mucosa extending proximally 1 to 2 cm. 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 The diaphragmatic pinch was seen at 40 cm while the GE junction was well seen at 38 cm denoting a 2 cm hiatal hernia. Otherwise, there was no evidence of erosions, ulcerations, mass, lesions, or active/recent bleeding. Stomach: Normal-appearing mucosa was seen in the gastric cardia, fundus, body, greater curvature, antrum, and incisura. There was no evidence of erosions, ulcerations, mass, lesions, or active/recent bleeding. Duodenum: Normal-appearing mucosa was seen in both the duodenal bulb and second portion of the duodenum. There was no evidence of erosions, ulcerations, mass, lesions, or active/recent bleeding. IMPRESSION: 1. 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 2. 2 cm hiatal hernia. 3. No etiology for the patient's melena was seen during this examination. RECOMMENDATIONS: 1. We will continue to trend H and H and transfuse as necessary to maintain an H and H of 7/21. 2. Continue to monitor clinically for signs of active GI bleeding. 3. Would place the patient on a clear liquid diet in anticipation for GoLYTELY prep later tonight and colonoscopy tomorrow morning for evaluation of the colon and possible GI bleeding source there. 4. Would avoid any anticoagulation until the colonoscopy. 5. Agree with transferring the patient to the IMCU for continued monitoring while being prepped. We will continue to follow. Please call with any questions. Job ID: [id number]
[2018-10-16] MEDS ORDERED: Epoetin (ESRD) 20,000 UNITS/ML SC SCH (19:45)
[2018-10-16] MEDS ORDERED: EPOETIN ALFA-EPBX (ESRD) 10,000 UNIT/ML VIAL SC SCH (20:00)
[2018-10-16 20:35] LABS: Troponin I 0.034 ng/mL (< 0.028)
[2018-10-16] MEDS: Pantoprazole 40 MG VIAL IVP SCH (20:38)
--- NOTE | 2018-10-16 20:48 | HP ---
PRIMARY CARE PROVIDER: Dr. Pacheco. PRIMARY PATENT LEATHER SORTER: Dr. Sainz. CHIEF COMPLAINT: Blood in the stool. HISTORY OF PRESENT ILLNESS: This is an 78-year-old male, who presents to [facility] in transfer from [facility] where the patient is current resident. The patient had complained of rectal bleeding in the last 24 hours with 4 BMs this morning with bright red and darker stool intermixed. The patient does take aspirin daily, but denies a history of prior GI bleeds. The patient had reported lightheadedness as well as mild abdominal cramping, but no vomiting. The patient took no specific alleviating medications and was referred to the emergency room for further evaluation. In the emergency room, the patient underwent a hemoglobin assessment showing a value of 8.2. Previous values noted at 9.8 on 05/04/2018. The patient was typed and crossed, receiving 1 unit of packed red blood cells in the emergency room as well as intravenous normal saline x1 L and Protonix 40 mg IV push. Consultation has been obtained by the GI Service with plans for endoscopy. PAST MEDICAL HISTORY: 1. End-stage renal disease, with hemodialysis. 2. Chronic anemia due to chronic kidney disease. 3. Coronary artery disease. 4. Chronic systolic congestive heart failure, stage C. 5. Diabetes mellitus type 2. 6. Dyslipidemia. 7. Hypertension. 8. Peripheral vascular disease. 9. Dementia with behavioral disturbance. 10. Phantom limb syndrome. PAST SURGICAL HISTORY: 1. Status post left towjw-jrb-lxil amputation and right ftmuq-pxq-qboj amputation. 2. Status post hernia repair. 3. Status post AV fistula placement. 4. Status post coronary artery bypass grafting x4 vessels. CURRENT MEDICATIONS: 1. Amlodipine 5 mg p.o. daily. 2. Lipitor 40 mg p.o. at bedtime. 3. Tessalon Perles 100 mg p.o. t.i.d. p.r.n. 4. Coreg 25 mg p.o. b.i.d. 5. Gabapentin 100 mg p.o. t.i.d. 6. NovoLog insulin sliding scale. 7. Lantus 25 units subcutaneously q.a.m. 8. DuoNeb 3 mL nebulized q.i.d. p.r.n. 9. Claritin 10 mg p.o. at bedtime. 10. Melatonin 5 mg p.o. at bedtime. 11. Aspirin enteric-coated 81 mg p.o. daily. 12. Ferrous sulfate 325 mg p.o. b.i.d. 13. Hydralazine 25 mg p.o. t.i.d. 14. Isosorbide mononitrate 60 mg p.o. daily. ALLERGIES: TO ACETAMINOPHEN, HYDROCODONE, AND ZOLPIDEM. FAMILY HISTORY: Positive for diabetes mellitus and hypertension. SOCIAL HISTORY: The patient resides at [facility]. . No current alcohol, tobacco, or illicit drug use. Nonambulatory status. REVIEW OF SYSTEMS: Unobtainable due to the patient's dementia. PHYSICAL EXAMINATION: On admission: VITAL SIGNS: Blood pressure 85/44, pulse 68, respiratory rate 14, temperature 98.2 degrees Fahrenheit, O2 saturation 100% on 2 L/minute by nasal cannula. GENERAL APPEARANCE: This is an 78-year-old male, alert, responsive, in no acute distress. HEENT: Pupils are equal, round, reactive to light and accommodation. Extraocular muscles are intact. No scleral icterus. No conjunctival injection. Nares patent. OP is clear. Teeth in fair repair. NECK: Supple. No cervical adenopathy. No thyromegaly. No carotid bruits. No JVD appreciated. Cervical spine with full active and passive range of motion. No meningeal signs noted. CHEST: Lungs are clear to auscultation bilaterally. CARDIOVASCULAR: S1 and S2 without noted murmur, rub, or gallop. ABDOMEN: Rounded with mild tenderness to palpation diffusely. Mild distention. No palpable mass. No rebound or guarding noted. EXTREMITIES: Left znfwi-pye-itjz amputation noted with stump intact. Right ymxtb-hxg-ujup amputation with stump intact. NEUROLOGIC: Cranial nerves 2 through 12 are grossly intact. No focal or lateralizing signs appreciated. PERTINENT LAB AND X-RAY FINDINGS: Sodium 134, potassium 4.8, chloride 98, CO2 of 26, BUN 90, creatinine 4.63, estimated GFR of 12, glucose 301, calcium 8.6. Serum iron level 109, TIBC 209, ferritin 722. LFTs within normal limits. Troponin I 0.031. CBC showed a white blood cell count of 10.9, hemoglobin 8.2, hematocrit 23.2, MCV 99, platelet count 200 with normal differential. PT 14.9, INR 1.2, PTT 29.9. Stool Hemoccult positive on 10/16/2018. CT of the abdomen and pelvis dated 10/16/2018, showed diverticulosis. Two small cystic lesions in the pancreas. EKG dated 10/16/2018, by my interpretation shows sinus mechanism with heart rates in the 60s. Normal axis. No acute ST-T wave changes appreciated. ASSESSMENT AND PLAN: 1. Acute gastrointestinal bleed. Suspect lower gastrointestinal source. Status post 1 unit of packed red blood cells. Continue serial hemoglobin and hematocrit monitoring. Avoid anticoagulation and NSAIDs. Consult GI Service for endoscopy. Continue Protonix 40 mg IV b.i.d. 2. Hypotension. Suspect secondary to volume depletion in the context of acute gastrointestinal bleed. Continue IV fluids with normal saline at 50 mL/hr. Avoid blood pressure medications. 3. Acute blood loss anemia. See #1 above. Continue serial hemoglobin and hematocrit monitoring. 4. End-stage renal disease, with hemodialysis. We will consult Nephrology Service for timing of next hemodialysis session. Given the patient's hypotension, hemodialysis not advised. 5. Diabetes mellitus type 2. Insulin sliding scale for reflexive coverage. ADA diet when tolerating p.o. intake. Serial Accu-Cheks a.c. and at bedtime. 6. Prophylaxis. Protonix 40 mg IV b.i.d. 7. Code status is do not attempt resuscitation, confirmed with family and patient. Surrogate medical decision maker is the patient's daughter. Job ID: [id number]
--- NOTE | 2018-10-17 01:27 | CON ---
DATE OF CONSULTATION: HISTORY OF PRESENT ILLNESS: Mr. Mancera is an 78-year-old white male with ESRD and was admitted for rectal bleeding. He underwent an emergent upper GI endoscopy with negative findings. GI will be scheduling for his colonoscopy tomorrow. We are now being consulted for his maintenance hemodialysis. He did not receive his dialysis. My plan is to dialyze him after his colonoscopy using no heparin. REVIEW OF SYSTEMS: Positive for hematochezia. Positive for mild abdominal pain, occasional. No nausea. No vomiting. Decreased appetite. Decreased energy level. No headache. No syncopal episode. No gross hematuria. No dysuria. No urinary frequency. No headache. No sore throat. No chest pain. No shortness of breath. PAST MEDICAL HISTORY: Includes the following 1. ESRD currently on maintenance hemodialysis. 2. Diabetic nephropathy. 3. Type 2 diabetes mellitus. 4. Peripheral vascular disease. 5. Hyperlipidemia. 6. Coronary artery disease. 7. Peripheral neuropathy. 8. COPD. 9. Diverticulosis. 10. Status post gastric ulcer. 11. Status post CHF. PAST SURGICAL HISTORY: Status post right BKA, status post left AKA, status post cardiac cath, status post CABG, status post left knee surgery, status post upper and lower GI endoscopy, status post AV fistula placement, status post cuffed hemodialysis catheter placement. SOCIAL HISTORY: The patient currently is a group home, he is , 4 children with one step child. Smoked for 50 years, 2 packs a day. Alcohol, none. No IV drug abuse. Retired [employer]. Status post multiple blood transfusion. Sedentary lifestyle. ALLERGIES: NONE. TRAUMA: Status post left knee fracture. IMMUNIZATION: Up-to-date. HOSPITALIZATIONS: Please see past medical history. FAMILY HISTORY: No family history of ESRD. PHYSICAL EXAMINATION: VITAL SIGNS: Blood pressure is noted at 98/49 with a heart rate of 66, respiratory rate 18. GENERAL: Noted to be awake, supine, comfortable, lethargic. SKIN: Adequate turgor. HEENT: Slightly pale conjunctivae. Anicteric sclerae. No neck mass. No carotid bruits. No JVD. CHEST: No deformities. LUNGS: Clear breath sounds. No wheezing. No crackles. HEART: Normal sinus rhythm. No murmurs, gallops, or rubs. ABDOMEN: Globular, soft, nontender. No masses. EXTREMITIES: Bilateral leg amputation. NEUROLOGICAL: Awake, oriented to 3 spheres. Moving all extremities. No tremors or asterixis. No ataxia. MEDICATIONS: Of October 16, 2018, showed the following; 1. Zofran 4 mg q.6 p.r.n. 2. Humalog sliding scale. 3. Protonix 40 mg IV q.12 normal saline at 50 mL/h. Home medications included; 1. Melatonin p.r.n. 2. Hydralazine 10 mg p.o. t.i.d. 3. Lantus insulin 25 units subcu q.a.m. 4. NovoLog sliding scale. 5. Carvedilol 25 mg p.o. b.i.d. 6. Amlodipine 5 mg once a day. LABORATORY DATA: Laboratories of October 16, 2018; white count 10.9, hemoglobin 8.2. Sodium 134, potassium 4.8, chloride 98, carbon dioxide 26, BUN 90, creatinine 4.63, glucose 301, calcium 8.6, AST 12, ALT 19. Ferritin 722, TIBC 209, albumin 3.2. Troponin I 0.026. IMAGING: CT scan of the abdomen and pelvis, October 16, 2018, sigmoid colonic diverticulosis without diverticulitis. Small cystic lesions in the pancreas. ASSESSMENT AND PLAN: 1. Gastrointestinal bleed-initial upper GI endoscopy shows no active bleeding in the upper GI tract. The patient has a planned colonoscopy, p.r.n. blood transfusion. 2. Chronic anemia. Start Epogen 10,000 units subcu every week. 3. End-stage renal disease. No indication for any emergent hemodialysis. I have scheduled him for his hemodialysis tomorrow. We plan to use a heparin-free dialysis due to the recent gastrointestinal bleed. In addition, review of the last Kt/V suggests he is adequately dialyzed with the current dialysis regimen. Again, fluid removal only as tolerated. Thank you for the consult. We will continue to follow. Job ID: [id number]
[2018-10-17 06:38] LABS: Band 3 % (5-11); Hemoglobin 7.7 g/dL (14.0-18.0); Hypochromia SLIGHT = 6-15 cells (100X) (0-5/hpf); Lymphocytes 14 % (21-51); MDiff Complete? YES; Mean Corpuscular HGB CONC 34.8 g/dL (32.0-36.0); Mean Corpuscular Hemoglobin 34.1 pg (27.0-31.0); Mean Corpuscular Volume 98.1 fL (78.0-98.0); Mean Platelet Volume 8.2 fL (7.4-10.4); Monocytes 8 % (0-10); Neutrophil 75 % (42-75); Nucleated RBC 1 % (0); Platelet Count 170 thou/uL (130-400); Platelet Morphology Comment Appears Adequate; RBC Distribution Width 14.1 % (11.5-14.5); Red Blood Cell (RBC) Count 2.25 mill/uL (4.70-6.10)
[2018-10-17 06:51] LABS: Anion Gap 16 mmol/L (10-20); BUN (Urea Nitrogen) 90 mg/dL (8.4-25.7); Calc. Creatinine Clearance 18 mL/min (70-130); Calcium 8.6 mg/dL (7.8-10.44); Carbon Dioxide 24 mmol/L (23-31); Chloride 102 mmol/L (98-107); Estimated GFR-MDRD 12; Glucose 142 mg/dL (83-110); Potassium 4.1 mmol/L (3.5-5.1); Sodium 138 mmol/L (136-145)
[2018-10-17] MEDS ORDERED: PROPOFOL 40 ML ONE (07:22)
[2018-10-17] MEDS ORDERED: Ketamine 50 MG/ML (10ML VIAL) ONE (07:54)
[2018-10-17] MEDS ORDERED: Ondansetron HCl/PF 4 MG/2 ML Vial IVP PRN (09:19)
[2018-10-17] MEDS ORDERED: Promethazine HCl 25 MG/ML VIAL SLOW IVP PRN (09:19)
[2018-10-17] MEDS ORDERED: Promethazine HCl 25 MG/ML VIAL IM PRN (09:19)
[2018-10-17] MEDS ORDERED: Eucerin (Mineral Oil/Petrolatum,White) 30 gm Jar TOP PRN (10:08)
[2018-10-17] MEDS ORDERED: Sodium Chloride 0.65% Nasal 44 ML BOT EA NARE PRN (10:08)
[2018-10-17] MEDS ORDERED: Diabetic Tussin 200 MG/10 ML UDCUP PO PRN (10:08)
[2018-10-17] MEDS ORDERED: Bisacodyl 10 MG SUPP PR PRN (10:08)
[2018-10-17] MEDS ORDERED: Loperamide HCl 2 MG CAP PO PRN ×2 (10:08→11:32)
[2018-10-17] MEDS ORDERED: Senokot S 8.6-50 MG TAB PO PRN (10:08)
[2018-10-17] MEDS ORDERED: Artificial Tear Sol 15 ML BOT EA EYE PRN (10:08)
[2018-10-17] MEDS ORDERED: Loratadine 10 MG TAB PO PRN ×2 (10:08→11:20)
[2018-10-17] MEDS ORDERED: hydrALAZINE 20 MG/ML VIAL SLOW IVP PRN (10:08)
[2018-10-17] MEDS ORDERED: Cepastat Lozenges 1 LOZ PO PRN (10:08)
[2018-10-17] MEDS: Pantoprazole 40 MG VIAL IVP SCH ×2 (10:52→20:42)
[2018-10-17] MEDS: Sodium Chloride 0.9% 1,000 ML IV SCH (10:53)
[2018-10-17] MEDS ORDERED: Polyethylene Glycol 3350 17 GM Packet PO PRN (11:20)
[2018-10-17] MEDS ORDERED: Guaifenesin DM 100-10/5 ML UDCUP PO PRN (11:20)
--- NOTE | 2018-10-17 11:20 | PDOC.PN ---
- Subjective Encounter Start Date: 10/17/18 Encounter Start Time: 10:10 -: old records requested/rev Patient seen and examined. No new complaints. No overnight events - Objective Resuscitation Status - Order Detail: 10/16/18 14:42 Resuscitation Status Routine Resuscitation Status: FULL: Full Resuscitation MAR Reviewed: Yes Vital Signs & Weight: Vital Signs (12 hours) Temp Pulse Ox 10/17/18 08:00 96 10/17/18 07:32 97.8 F 10/17/18 03:46 97.6 F 10/16/18 23:31 97.8 F Weight Weight 223 lb 4.8 oz Most Recent Monitor Data Heart Rate from ECG 80 NIBP 112/47 NIBP BP-Mean 68 Respiration from ECG 16 SpO2 97 I&O: 10/16/18 10/17/18 10/18/18 06:59 06:59 06:59 Intake Total 5000 Balance 5000 Result Diagrams: 10/17/18 06:13 10/17/18 06:13 Additional Labs: Accuchecks 10/16/18 10/16/18 17:13 14:27 POC Glucose 259 H 267 H Radiology Reviewed by me: Yes EKG Reviewed by me: Yes Phys Exam - Physical Examination Constitutional: NAD HEENT: PERRLA, moist MMs, sclera anicteric Neck: no JVD, supple Respiratory: no wheezing, no rales, no rhonchi Cardiovascular: RRR, no significant murmur, no rub Gastrointestinal: soft, non-tender, 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, positive bowel sounds right BKA, left AKA Neurological: non-focal Lymphatic: no nodes Psychiatric: normal affect Skin: no rash, normal turgor Dx/Plan (1) Anemia due to acute blood loss Code(s): D62 - ACUTE POSTHEMORRHAGIC ANEMIA Status: Acute (2) GI bleed Code(s): K92.2 - GASTROINTESTINAL HEMORRHAGE, UNSPECIFIED Status: Acute (3) Hypotension Status: Acute (4) Amputation leg, bilat Code(s): S88.911A - COMPLETE TRAUMATIC AMPUTATION OF R LOW LEG, LEVEL UNSP, INIT ; S88.912A - COMPLETE TRAUMATIC AMPUTATION OF L LOW LEG, LEVEL UNSP, INIT Status: Chronic Qualifiers: Comment: has left bka and right aka (5) Anemia, normocytic normochromic Code(s): D64.9 - ANEMIA, UNSPECIFIED Status: Chronic Comment: IV iron, Erythropoetin to address iron deficiency and anemia of chronic disease (6) CAD (coronary artery disease) Code(s): I25.10 - ATHSCL HEART DISEASE OF [place] CORONARY ARTERY W/O ANG PCTRS Status: Chronic (7) Chronic combined systolic and diastolic CHF (congestive heart failure) Code(s): I50.42 - CHRONIC COMBINED SYSTOLIC AND DIASTOLIC HRT FAIL Status: Chronic Comment: (8) Dementia Code(s): F03.90 - UNSPECIFIED DEMENTIA WITHOUT BEHAVIORAL DISTURBANCE Status: Chronic Qualifiers: (9) Diabetes mellitus type 2 in obese Code(s): E11.69 - TYPE 2 DIABETES MELLITUS WITH OTHER SPECIFIED COMPLICATION; E66.9 - OBESITY, UNSPECIFIED Status: Chronic (10) ESRD (end stage renal disease) on dialysis Code(s): N18.6 - END STAGE RENAL DISEASE; Z99.2 - DEPENDENCE ON RENAL DIALYSIS Status: Chronic Comment: initiated on HD this admission, held and restarted back 05/05/2018 (11) HLD (hyperlipidemia) Code(s): E78.5 - HYPERLIPIDEMIA, UNSPECIFIED Status: Chronic Qualifiers: (12) HTN (hypertension) Code(s): I10 - ESSENTIAL (PRIMARY) HYPERTENSION Status: Chronic Qualifiers: (13) PVD (peripheral vascular disease) Code(s): I73.9 - PERIPHERAL VASCULAR DISEASE, UNSPECIFIED Status: Chronic - Plan cont current plan of care * transfer to medical * start selected home meds * advance diet * repeat labs tomorrow * monitor vitals * medication reviewed as below * symptomatic treatment. * hold BP meds for low BP Review of Systems - Review of Systems ENT: negative: Ear Pain, Ear Discharge, Nose Pain, Nose Discharge, Nose Congestion, Mouth Pain, Mouth Swelling, Throat Pain, Throat Swelling, Other Respiratory: negative: Cough, Dry, Shortness of Breath, Hemoptysis, SOB with Excertion, Pleuritic Pain, Sputum, Wheezing Cardiovascular: negative: chest pain, palpitations, orthopnea, paroxysmal nocturnal dyspnea, edema, light headedness, other Gastrointestinal: negative: Nausea, Vomiting, Abdominal Pain, Diarrhea, Constipation, Melena, Hematochezia, Other Genitourinary: negative: Dysuria, Frequency, Incontinence, Hematuria, Retention , Other Musculoskeletal: negative: Neck Pain, Shoulder Pain, Arm Pain, Back Pain, Hand Pain, Leg Pain, Foot Pain, Other - Medications/Allergies Allergies/Adverse Reactions: Allergies Allergy/AdvReac Type Severity Reaction Status Date / Time acetaminophen [From [place]] Allergy pts family Verified 04/18/18 16:26 notes [place] made him violent hydrocodone [From [place]] Allergy pts family Verified 04/18/18 16:26 notes [place] made him violent zolpidem [From Ambien] AdvReac Verified 04/18/18 11:21 Medications: Current Medications Albuterol/Ipratropium (Duoneb) 3 ml NEB QID PRN PRN Reason: SOB &/or Wheezing Artificial Tears (Liquitears 15ml Bottle) 2 drop EA EYE PRN PRN PRN Reason: Dry Eyes Bisacodyl (Dulcolax) 10 mg IN DAILY RENA Dextrose/Water (Dextrose 50%) 25 gm SLOW IVP PRN PRN PRN Reason: Hypoglycemia Ferrous Sulfate (Feosol) 325 mg PO BID-WM RENA Gabapentin (Neurontin) 100 mg PO TID RENA Glucagon (Glucagon) 1 mg IM PRN PRN PRN Reason: Hypoglycemia Guaifenesin (Robitussin Sf) 200 mg PO Q4H PRN PRN Reason: Cough Guaifenesin/Dextromethorphan (Robitussin Dm) 10 ml PO Q6HR PRN PRN Reason: Cough Hydralazine HCl (Apresoline) 10 mg SLOW IVP Q4H PRN PRN Reason: SBP > 180 and HR < 70 Dextrose/Water (D5w) 1,000 mls @ 0 mls/hr IV .Q0M PRN PRN Reason: Hypoglycemia Sodium Chloride (Normal Saline 0.9%) 1,000 mls @ 50 mls/hr IV .Q20H RENA Last Admin: 10/17/18 10:53 Dose: 1,000 mls Insulin Glargine (Lantus) 25 units SC QAM RENA Insulin Human Lispro (Humalog) 0 units SC .MILD SLIDING SCALE PRN PRN Reason: Mild Correctional Scale Last Admin: 10/16/18 18:03 Dose: 4 unit Insulin Human Lispro (Humalog) 0 units SC .BEDTIME SLIDING SC PRN PRN Reason: Bedtime Correctional Scale Loratadine (Claritin) 10 mg PO HS PRN PRN Reason: Allergies Mineral Oil/White Petrolatum (Eucerin Cream) 0 gm TOP BIDPRN PRN PRN Reason: Dry Skin Non-Formulary Medication (Atorvastatin Calcium [Atorvastatin Calcium]) 80 mg PO HS RENA Non-Formulary Medication (Melatonin [Melatonin]) 5 mg PO HS [facility] Non-Formulary Medication (Propylene Glycol/Peg 400/Pf [Systane Ultra 0.4-0.3% Eye Drp]) 1 drop OP QID [facility] Non-Formulary Medication (Loperamide Hcl [Loperamide]) 2 mg PO ASDIR PRN PRN Reason: Diarrhea/Loose Stools Ondansetron HCl (Zofran Odt) 4 mg PO Q6H PRN PRN Reason: Nausea/Vomiting Ondansetron HCl (Zofran) 4 mg IVP Q6H PRN PRN Reason: Nausea/Vomiting Pantoprazole Sodium (Protonix) 40 mg IVP Q12HR [facility] Last Admin: 10/17/18 10:52 Dose: 40 mg Polyethylene Glycol (Miralax) gm PO DAILY PRN PRN Reason: Constipation Sodium Chloride (Flush - Normal Saline) 10 ml IVF PRN PRN PRN Reason: Saline Flush Sodium Chloride ([place] Nasal [place] 0.65%) 0 ml EA NARE QIDPRN PRN PRN Reason: Nasal Congestion Throat Lozenges (Cepastat Lozenges) 1 nichol PO Q2H PRN PRN Reason: Sore Throat
[2018-10-17] MEDS: HumaLOG 300 UNITS/3 ML VIAL SC PRN (12:00)
--- NOTE | 2018-10-17 12:17 | PRG ---
DATE OF SERVICE: 10/17/2018 SUBJECTIVE: Mr. Mancera is an 78-year-old white male with ESRD, who was admitted for GI bleed. He has undergone upper and lower GI endoscopy. Per the patient's report, the upper and lower GI endoscopy has been negative. He is currently receiving p.r.n. blood transfusion. He is scheduled for dialysis. I have scheduled him for heparin free dialysis due to the recent GI bleed. No other complaints today. He feels better. No chest pain or shortness of breath. OBJECTIVE: VITAL SIGNS: Blood pressure is noted at 112/47, heart rate 78, respiratory rate 12. GENERAL: He is noted to be awake, alert, comfortable, supine, not in distress. SKIN: Adequate turgor. HEENT: Slightly pale conjunctivae. Anicteric sclerae. NECK: No neck mass. No carotid bruits. No JVD. CHEST: No deformities. LUNGS: Clear breath sounds. HEART: Normal sinus rhythm. No murmur. No gallops. No rubs. ABDOMEN: Globular, soft, nontender. No masses. EXTREMITIES: Bilateral leg amputation. MEDICATIONS: Medications of October 17, 2018, was reviewed. LABORATORY DATA: Laboratories of October 17, 2018; white count 12, hemoglobin 7.7. Sodium 138, potassium 4, chloride 102, carbon dioxide 24, BUN 90, creatinine 4.61, calcium 8.6. Troponin I of 0.034. ASSESSMENT AND PLAN: 1. Status post gastrointestinal bleed-p.r.n. blood transfusion. Gastrointestinal following. Status post upper and lower gastrointestinal endoscopy. 2. Chronic anemia. The patient has been resumed back on his ferrous sulfate and Epogen. 3. End-stage renal disease, stable. We will continue heparin free dialysis with this patient due to the recent gastrointestinal bleed. He missed dialysis yesterday. I have scheduled him for his 4-hour hemodialysis today. Overall, agree with current management. Job ID: [id number]
[2018-10-17] MEDS: Polyethylene Glycol OPTH DROP 15 ML BOT EA EYE SCH ×3 (13:46→20:42)
--- NOTE | 2018-10-17 15:09 | OP ---
DATE OF PROCEDURE: 10/17/2018 INDICATION FOR PROCEDURE: Hematochezia, anemia. PROCEDURE PERFORMED: Colonoscopy (incomplete). DESCRIPTION OF PROCEDURE: After the risks and benefits of the procedure were explained to the patient including risks of bleeding, infection, perforation, reactions to anesthesia, aspiration and/or pain, informed consent was obtained. The patient was then taken to the endoscopy suite, where deep sedation was administered via propofol and anesthesia support. Once adequate sedation was achieved, a digital rectal examination was performed followed by introduction of the standard colonoscope and intubation of the colon with the most advanced for progress being the ascending colon. Further progress could not be achieved due to significant tortuosity of the colon redundancy and significant looping of the colonoscope itself. Manual abdominal pressure as well as changing the patient's position to the supine position were performed with little change in the status. The quality of the prep was good to excellent. The patient tolerated the procedure well with no immediate perioperative complications. FINDINGS: Digital rectal exam: Normal findings were seen on digital rectal exam, although sphincterotome was somewhat lessen/poor. COLON FINDINGS: For progress past the proximal ascending colon could not be achieved due to significant tortuosity, redundancy, and significant looping of the colon despite manual abdominal pressure and change in the patient's position to the supine position. The colonoscope was then withdrawn from there with careful examination of the mucosa. A minimal amount of blood and blood clot was seen throughout the entire colon without any evidence of underlying abnormalities. Multiple colonic polyps were seen in the ascending, descending, and sigmoid colons measuring approximately 3 to 7 mm in size. However, none of these exhibit any high-risk stigmata of bleeding or recent bleeding. They were not intervened upon during this examination due to his recent history of bleeding and potential for causing further bleeding. Otherwise, normal-appearing mucosa was seen in the ascending, transverse, and proximal descending colons. Multiple small and large colonic diverticula were seen in the distal descending and sigmoid colons. These were carefully examined upon withdrawal with no overt ulceration or bleeding seen from the examined diverticula. Normal-appearing mucosa was seen in the rectum with no abnormality seen on rectal retroflexion. IMPRESSION: 1. Incomplete colonoscopy with inability to progress past the ascending colon secondary to tortuosity, redundancy and significant looping. 2. Multiple colonic polyps measuring 3 to 7 mm in size seen in the ascending, descending and sigmoid colons, not intervened upon given increased risk of further gastrointestinal bleeding. 3. Severe left-sided colonic diverticulosis. 4. Minimal amount of blood seen throughout the entire colon, but no evidence of active gastrointestinal bleeding. No etiology for his bleeding was seen during this examination. RECOMMENDATIONS: 1. We would continue to trend his H and H and transfuse as necessary to maintain an H and H of 7/21. 2. Continue to monitor clinically for signs of active GI bleeding. 3. If the patient continues to exhibit significant hematochezia or continued decrease in his H and H, we will consider a tagged red cell scan for further localization of the GI bleeding. 4. If the GI bleeding is located within the right colon, we would consider transfer to [facility] for CT angiography and embolization given inability to reach the right colon/cecum during examination today. We will continue to follow. Please call with any questions. Job ID: [id number]
[2018-10-17 15:15] LABS: Hep B Surf Ag Non-Reactive S/CO (NonReactive)
[2018-10-17 15:16] LABS: HBSAg Index 0.36 S/CO (0-0.99)
[2018-10-17] MEDS ORDERED: PROPOFOL 200 MG/20 ML VIAL ONE (16:26)
[2018-10-17] MEDS ORDERED: PHENYLEPHRINE-NS 100 MCG/ML 10 ML SYRINGE ONE (16:26)
[2018-10-17] MEDS ORDERED: ePHEDrine 50 MG/ML VIAL ONE (16:26)
[2018-10-17] MEDS ORDERED: Lidocaine 1% PF 5 ML VIAL ONE (16:26)
[2018-10-17] MEDS: Gabapentin 100 MG CAP PO SCH ×2 (16:58→20:41)
[2018-10-17] MEDS: Ferrous Sulfate 325 MG TAB PO SCH (16:58)
[2018-10-17] MEDS: Atorvastatin Calcium 40 MG TAB PO SCH (20:41)
[2018-10-17] MEDS: Acetaminophen 325 MG TAB PO PRN (22:35)
[2018-10-18 08:18] LABS: #Eosinphils 0.3 thou/uL (0.0-0.7); #Monocytes 0.8 thou/uL (0.11-0.59); #Neutrophils 4.6 thou/uL (1.40-6.50); %Basophils 0.5 % (0.0-1.0); %Eosinophils 4.1 % (0.0-10.0); %Lymphocytes 25.8 % (21.0-51.0); %Monocytes 10.6 % (0.0-10.0); Hemoglobin 6.6 g/dL (14.0-18.0); Mean Corpuscular HGB CONC 34.4 g/dL (32.0-36.0); Mean Corpuscular Hemoglobin 33.9 pg (27.0-31.0); Mean Corpuscular Volume 98.5 fL (78.0-98.0); Mean Platelet Volume 7.5 fL (7.4-10.4); Platelet Count 145 thou/uL (130-400); RBC Distribution Width 13.8 % (11.5-14.5); Red Blood Cell (RBC) Count 1.93 mill/uL (4.70-6.10); White Blood Cell (WBC) Count 7.8 thou/uL (4.8-10.8)
[2018-10-18 08:38] LABS: Anion Gap 9 mmol/L (10-20); BUN (Urea Nitrogen) 38 mg/dL (8.4-25.7); Calc. Creatinine Clearance 27 mL/min (70-130); Calcium 8.5 mg/dL (7.8-10.44); Carbon Dioxide 32 mmol/L (23-31); Chloride 101 mmol/L (98-107); Estimated GFR-MDRD 19; Glucose 241 mg/dL (83-110); Potassium 3.9 mmol/L (3.5-5.1); Sodium 138 mmol/L (136-145)
[2018-10-18] MEDS ORDERED: Bisacodyl 10 MG SUPP PR SCH (09:00)
[2018-10-18] MEDS: Ferrous Sulfate 325 MG TAB PO SCH ×2 (09:07→17:00)
[2018-10-18] MEDS: Gabapentin 100 MG CAP PO SCH ×3 (09:08→20:41)
[2018-10-18] MEDS: Insulin Glargine 25 UNITS in Pre-Filled Syringe 1 EACH SC SCH (09:08)
[2018-10-18] MEDS: Polyethylene Glycol OPTH DROP 15 ML BOT EA EYE SCH ×4 (09:08→20:42)
[2018-10-18] MEDS: Pantoprazole 40 MG VIAL IVP SCH ×2 (09:21→20:41)
--- NOTE | 2018-10-18 09:48 | PDOC.PN ---
- Subjective Encounter Start Date: 10/18/18 Encounter Start Time: 09:30 last night pt was confused, this morning he is still confused, his H & H is low denies further bleeding - Objective Resuscitation Status - Order Detail: 10/16/18 14:42 Resuscitation Status Routine Resuscitation Status: FULL: Full Resuscitation MAR Reviewed: Yes Vital Signs & Weight: Vital Signs (12 hours) Temp 10/18/18 07:11 99.2 F 10/18/18 04:00 98.5 F 10/18/18 00:00 97.9 F Weight Admit Weight 223 lb 4.8 oz Weight 223 lb 4.8 oz Most Recent Monitor Data Heart Rate from ECG 83 NIBP 102/48 NIBP BP-Mean 66 Respiration from ECG 21 SpO2 98 I&O: 10/17/18 10/18/18 10/19/18 06:59 06:59 06:59 Intake Total 5000 1420 Output Total 1000 Balance 5000 420 Result Diagrams: 10/18/18 08:04 10/18/18 08:04 Additional Labs: Accuchecks 10/18/18 10/17/18 10/17/18 06:05 21:09 16:41 POC Glucose 214 H 183 H 275 H 10/17/18 11:56 POC Glucose 253 H EKG Reviewed by me: Yes Phys Exam - Physical Examination Constitutional: NAD HEENT: PERRLA, moist MMs, sclera anicteric Neck: no JVD, supple Respiratory: no wheezing, no rales, no rhonchi Cardiovascular: RRR, no significant murmur, no rub Gastrointestinal: soft, non-tender, 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 right BKA, left AKA Neurological: moves all 4 limbs Lymphatic: no nodes Psychiatric: normal affect Skin: no rash, normal turgor Dx/Plan (1) Anemia due to acute blood loss Code(s): D62 - ACUTE POSTHEMORRHAGIC ANEMIA Status: Acute (2) GI bleed Code(s): K92.2 - GASTROINTESTINAL HEMORRHAGE, UNSPECIFIED Status: Acute (3) Hypotension Status: Acute (4) Amputation leg, bilat Code(s): S88.911A - COMPLETE TRAUMATIC AMPUTATION OF R LOW LEG, LEVEL UNSP, INIT ; S88.912A - COMPLETE TRAUMATIC AMPUTATION OF L LOW LEG, LEVEL UNSP, INIT Status: Chronic Qualifiers: Comment: has left bka and right aka (5) Anemia, normocytic normochromic Code(s): D64.9 - ANEMIA, UNSPECIFIED Status: Chronic Comment: (6) CAD (coronary artery disease) Code(s): I25.10 - ATHSCL HEART DISEASE OF [place] CORONARY ARTERY W/O ANG PCTRS Status: Chronic (7) Chronic combined systolic and diastolic CHF (congestive heart failure) Code(s): I50.42 - CHRONIC COMBINED SYSTOLIC AND DIASTOLIC HRT FAIL Status: Chronic Comment: (8) Dementia Code(s): F03.90 - UNSPECIFIED DEMENTIA WITHOUT BEHAVIORAL DISTURBANCE Status: Chronic Qualifiers: (9) Diabetes mellitus type 2 in obese Code(s): E11.69 - TYPE 2 DIABETES MELLITUS WITH OTHER SPECIFIED COMPLICATION; E66.9 - OBESITY, UNSPECIFIED Status: Chronic (10) ESRD (end stage renal disease) on dialysis Code(s): N18.6 - END STAGE RENAL DISEASE; Z99.2 - DEPENDENCE ON RENAL DIALYSIS Status: Chronic Comment: (11) HLD (hyperlipidemia) Code(s): E78.5 - HYPERLIPIDEMIA, UNSPECIFIED Status: Chronic Qualifiers: (12) HTN (hypertension) Code(s): I10 - ESSENTIAL (PRIMARY) HYPERTENSION Status: Chronic Qualifiers: (13) PVD (peripheral vascular disease) Code(s): I73.9 - PERIPHERAL VASCULAR DISEASE, UNSPECIFIED Status: Chronic - Plan cont current plan of care * his confusion is multifectorial, does not have FND * today transfuse 1 unit PRBC * transfer to medical floor * medication reviewed as below * symptomatic treatment * repeat labs tomorrow * will monitor in hospital for now. Review of Systems - Review of Systems ENT: negative: Ear Pain, Ear Discharge, Nose Pain, Nose Discharge, Nose Congestion, Mouth Pain, Mouth Swelling, Throat Pain, Throat Swelling, Other Respiratory: negative: Cough, Dry, Shortness of Breath, Hemoptysis, SOB with Excertion, Pleuritic Pain, Sputum, Wheezing Cardiovascular: negative: chest pain, palpitations, orthopnea, paroxysmal nocturnal dyspnea, edema, light headedness, other Gastrointestinal: negative: Nausea, Vomiting, Abdominal Pain, Diarrhea, Constipation, Melena, Hematochezia, Other Genitourinary: negative: Dysuria, Frequency, Incontinence, Hematuria, Retention , Other Musculoskeletal: negative: Neck Pain, Shoulder Pain, Arm Pain, Back Pain, Hand Pain, Leg Pain, Foot Pain, Other Neurological: Confusion. negative: Weakness, Numbness, Incoordination, Change in Speech, Seizures, Other Other: not reliable due to his cognitive status - Medications/Allergies Allergies/Adverse Reactions: Allergies Allergy/AdvReac Type Severity Reaction Status Date / Time acetaminophen [From [place]] Allergy pts family Verified 04/18/18 16:26 notes [place] made him violent hydrocodone [From [place]] Allergy pts family Verified 04/18/18 16:26 notes [place] made him violent zolpidem [From Ambien] AdvReac Verified 04/18/18 11:21 Medications: Current Medications Acetaminophen (Tylenol) 650 mg PO Q6H PRN PRN Reason: Headache/Fever or Pain Last Admin: 10/17/18 22:35 Dose: 650 mg Albuterol/Ipratropium (Duoneb) 3 ml NEB QID PRN PRN Reason: SOB &/or Wheezing Artificial Tears (Liquitears 15ml Bottle) 2 drop EA EYE PRN PRN PRN Reason: Dry Eyes Atorvastatin Calcium (Lipitor) [address] [facility] Last Admin: 10/17/18 20:41 Dose: 80 mg Dextrose/Water (Dextrose 50%) 25 gm SLOW IVP PRN PRN PRN Reason: Hypoglycemia Ferrous Sulfate (Feosol) 325 mg PO BID-[facility] Last Admin: 10/18/18 09:07 Dose: 325 mg Gabapentin (Neurontin) 100 mg PO TID [facility] Last Admin: 10/18/18 09:08 Dose: 100 mg Glucagon (Glucagon) 1 mg IM PRN PRN PRN Reason: Hypoglycemia Guaifenesin (Robitussin Sf) 200 mg PO Q4H PRN PRN Reason: Cough Guaifenesin/Dextromethorphan (Robitussin Dm) 10 ml PO Q6HR PRN PRN Reason: Cough Hydralazine HCl (Apresoline) 10 mg SLOW IVP Q4H PRN PRN Reason: SBP > 180 and HR < 70 Dextrose/Water (D5w) 1,000 mls @ 0 mls/hr IV .Q0M PRN PRN Reason: Hypoglycemia Insulin Glargine 25 units/ (Miscellaneous Medication) 0.25 mls @ 0 mls/[facility] [place] [facility] Admin: 10/18/18 09:08 Dose: 0.25 mls Insulin Human Lispro (Humalog) 0 units SC .MILD SLIDING SCALE PRN PRN Reason: Mild Correctional Scale Last Admin: 10/17/18 12:00 Dose: 4 unit Insulin Human Lispro (Humalog) 0 units SC .BEDTIME SLIDING SC PRN PRN Reason: Bedtime Correctional Scale Loperamide HCl (Imodium) 2 mg PO PRN PRN PRN Reason: Diarrhea/Loose Stools Loratadine (Claritin) 10 mg PO HS PRN PRN Reason: Allergies Melatonin (Melatonin) 4.5 mg PO HS PRN PRN Reason: Insomnia Mineral Oil/White Petrolatum (Eucerin Cream) 0 gm TOP BIDPRN PRN PRN Reason: Dry Skin Ondansetron HCl (Zofran Odt) 4 mg PO Q6H PRN PRN Reason: Nausea/Vomiting Ondansetron HCl (Zofran) 4 mg IVP Q6H PRN PRN Reason: Nausea/Vomiting Pantoprazole Sodium (Protonix) 40 mg IVP Q12HR [facility] Last Admin: 10/18/18 09:21 Dose: 40 mg Polyethylene Glycol (Miralax) 17 gm PO DAILYPRN PRN PRN Reason: Constipation Propylene Glycol (Systane Opth Drop 15ml Bot) 1 drop EA EYE QID [facility] Last Admin: 10/18/18 09:08 Dose: 1 drop Sodium Chloride (Flush - Normal Saline) 10 ml IVF PRN PRN PRN Reason: Saline Flush Sodium Chloride ([place] Nasal [place] 0.65%) 0 ml EA NARE QIDPRN PRN PRN Reason: Nasal Congestion Sodium Chloride (Flush - Normal Saline) 10 ml IVF Q12HR [facility] Last Admin: 10/18/18 09:09 Dose: 10 ml Sodium Chloride (Flush - Normal Saline) 10 ml IVF PRN PRN PRN Reason: Saline Flush Throat Lozenges (Cepastat Lozenges) 1 nichol PO Q2H PRN PRN Reason: Sore Throat
[2018-10-18] MEDS: HumaLOG 300 UNITS/3 ML VIAL SC PRN ×3 (10:59→20:49)
--- NOTE | 2018-10-18 12:21 | PRG ---
DATE OF SERVICE: 10/18/2018 SUBJECTIVE: Mr. Mancera is an 78-year-old white male with ESRD and followed up by the [facility] for his maintenance hemodialysis. He underwent a heparin-free hemodialysis yesterday without any difficulty. Fluid removal was done. However, he was noted to be more anemic this morning. For that reason, he is currently receiving a blood transfusion. He denies any recurrent melena or hematochezia. The patient was intermittently confused last night. OBJECTIVE: VITAL SIGNS: Blood pressure 111/62, heart rate is 81, respiratory rate is 18, temperature 98.9, and pulse ox 100%. GENERAL: Awake, alert, comfortable, not in overt distress, obese. SKIN: Adequate turgor. HEENT: Pale conjunctivae. Anicteric sclerae. NECK: No neck mass. No carotid bruits. No JVD. CHEST: No deformities. LUNGS: Clear breath sounds. No wheezing. No crackles. HEART: Normal sinus rhythm. No murmurs, gallops, or rubs. ABDOMEN: Globular, soft, and nontender. No masses. EXTREMITIES: Bilateral leg amputation. MEDICATIONS: Medications of October 18, 2018, were reviewed. LABORATORY DATA: Laboratories of October 18, 2018; white count 7.8, hemoglobin 6.6. Sodium 138, potassium 3.9, chloride 101, carbon dioxide 32, BUN 38, creatinine 3.15, calcium 8.5. ASSESSMENT AND PLAN: 1. Gastrointestinal bleed - p.r.n. blood transfusion. GI following. He is status post upper and lower GI endoscopy. Negative findings. 2. Chronic anemia - the patient is currently on a weekly Epogen regimen. 3. End-stage renal disease. We will continue current heparin-free hemodialysis. I have resumed back his Friday, Friday, and Friday dialysis schedule. Again, we will be using no heparin due to the recent gastrointestinal bleed. Overall, prognosis remains guarded. Job ID: [id number]
--- NOTE | 2018-10-18 16:31 | NM ---
Nuclear medicine GI bleeding exam: 10/18/2018 HISTORY: GI bleeding, abnormal laboratory values TECHNIQUE: Patient was administered 27 mCi of technetium 99m labeled tagged red blood cells and was i víctor over 93 minutes. FINDINGS: Normal blood pool activity is noted. No scintigraphic evidence of active GI bleeding. IMPRESSION: No scintigraphic evidence of active GI bleeding.
--- NOTE | 2018-10-18 17:50 | PRG ---
DATE OF SERVICE: 10/18/2018 REASON FOR CONSULTATION: Hematochezia and anemia. SUBJECTIVE: Overnight, the patient exhibited increased confusion and irregular speech pattern per nursing staff, concerning for delirium. However, the patient was only able to sleep approximately 20-30 minutes total last night per nursing staff. This morning, the patient states he is doing better, although was perseverating on the need to secure his wheelchair for increased mobility. Today, he has not had any further episodes of hematochezia nor has he had any bowel movements at all within the last 12 to 24 hours. Currently denies any nausea, vomiting, fevers, chills, abdominal pain, or GI bleeding. OBJECTIVE: VITAL SIGNS: Temperature 98.6, pulse 83, blood pressure 111/62, respiratory rate 18, and saturating 100% on room air. GENERAL: The patient was lying in bed, in no acute distress. Alert and oriented x4. CARDIOVASCULAR: Regular rate and rhythm. RESPIRATORY: Clear to auscultation bilaterally. ABDOMEN: Normoactive bowel sounds. Soft, nontender, and nondistended. EXTREMITIES: Right below-knee amputation present as well as a left oryto-uib-qans amputation. No cyanosis, clubbing, or edema in the upper extremities. LABORATORY DATA: CBC with a white blood cell count of 7.8, hemoglobin 6.6, hematocrit 19, and platelets 145. Chemistry with a sodium of 138, potassium 3.9, chloride 101, CO2 of 32, BUN 38, creatinine 3.15, and glucose 241. IMAGING DATA: A tagged red cell scan performed on 10/18/2018, showed no scintigraphic evidence of active GI bleeding. ASSESSMENT AND PLAN: The patient is an 78-year-old male with past medical history of end-stage renal disease on hemodialysis, anemia of renal disease, coronary artery disease status post 4-vessel coronary artery bypass graft, congestive heart failure, diabetes, hyperlipidemia, hypertension, peripheral vascular disease, and mild dementia, initially presenting with gastrointestinal bleeding. Gastrointestinal bleeding. The patient initially presented with the acute onset of maroon to black colored bowel movements, having approximately 6-10 these bloody bowel movements the day prior to admission. While being evaluated in the ER, he was noted to have significant hypotension as well as decreased hemoglobin and hematocrit, but did respond well to IV fluid administration. 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 Subsequently, he underwent a colonoscopy on 10/17/2018, which was technically difficult with inability to reach the proximal colon including the cecum and ascending colon. However, during the examination, there was a minimal amount of blood seen throughout the entire colon, but no etiology for the bleeding source was seen during that time. Over the last 12 to 24 hours, he has either had minimal bright red blood per bowel movement or has had no bleeding or bowel movement at all, raising the question whether or not he continues to have any gastrointestinal bleeding. However, he did have a significant drop in his hemoglobin and hematocrit when compared to yesterday, which is concerning for active gastrointestinal bleeding despite no clinical evidence to the contrary. He did undergo dialysis yesterday, which may have contributed some to the decreased hemoglobin and hematocrit today, but it was heparin free, making this assumption less likely. RECOMMENDATIONS: 1. We would continue to trend his hemoglobin and hematocrit and transfuse as necessary to maintain a hemoglobin and hematocrit of 7/21. 2. Continue to monitor clinically for signs of active GI bleeding. 3. If the patient continues to exhibit significant hematochezia, we would consider either repeat colonoscopy or transfer the patient to [facility] for CT angiography and possible embolization given the inability to reach the right colon during his recent colonoscopy. 4. We would avoid any unnecessary anticoagulation in light of active GI bleeding. We will continue to follow. Please call with any questions. Job ID: [id number]
[2018-10-18] MEDS: Atorvastatin Calcium 40 MG TAB PO SCH (20:41)
[2018-10-18] MEDS: Melatonin 3 MG TAB PO PRN (20:46)
[2018-10-19 05:18] LABS: #Eosinphils 0.5 thou/uL (0.0-0.7); #Lymphocytes 2.2 thou/uL (1.20-3.40); #Neutrophils 4.7 thou/uL (1.40-6.50); %Basophils 0.4 % (0.0-1.0); %Eosinophils 5.5 % (0.0-10.0); %Lymphocytes 26.6 % (21.0-51.0); %Monocytes 12.1 % (0.0-10.0); %Neutrophils 55.4 % (42.0-75.0); Hemoglobin 6.6 g/dL (14.0-18.0); Mean Corpuscular HGB CONC 34.8 g/dL (32.0-36.0); Mean Corpuscular Hemoglobin 34.7 pg (27.0-31.0); Mean Corpuscular Volume 99.5 fL (78.0-98.0); Mean Platelet Volume 7.7 fL (7.4-10.4); Platelet Count 148 thou/uL (130-400); RBC Distribution Width 13.6 % (11.5-14.5); White Blood Cell (WBC) Count 8.4 thou/uL (4.8-10.8)
[2018-10-19 05:34] LABS: Anion Gap 13 mmol/L (10-20); BUN (Urea Nitrogen) 43 mg/dL (8.4-25.7); Calc. Creatinine Clearance 22 mL/min (70-130); Calcium 8.5 mg/dL (7.8-10.44); Carbon Dioxide 29 mmol/L (23-31); Chloride 101 mmol/L (98-107); Estimated GFR-MDRD 16; Glucose 168 mg/dL (83-110); Potassium 3.7 mmol/L (3.5-5.1); Sodium 139 mmol/L (136-145)
[2018-10-19] MEDS: HumaLOG 300 UNITS/3 ML VIAL SC PRN ×3 (06:32→21:39)
[2018-10-19] MEDS: Gabapentin 100 MG CAP PO SCH ×3 (10:05→20:21)
[2018-10-19] MEDS: Ferrous Sulfate 325 MG TAB PO SCH ×2 (10:05→18:21)
[2018-10-19] MEDS: Polyethylene Glycol OPTH DROP 15 ML BOT EA EYE SCH ×4 (10:06→20:20)
[2018-10-19] MEDS: Insulin Glargine 25 UNITS in Pre-Filled Syringe 1 EACH SC SCH (10:06)
[2018-10-19] MEDS: Pantoprazole 40 MG VIAL IVP SCH ×2 (10:06→20:21)
--- NOTE | 2018-10-19 10:13 | PRG ---
DATE OF SERVICE: 10/19/2018 SUBJECTIVE: Mr. Mancera is an 78-year-old white male being followed by the [facility] for his maintenance hemodialysis. He is scheduled for dialysis again today. I am doing heparin free dialysis due to the patient's history of GI bleed. He is status post upper and lower GI endoscopy with no significant findings. He continues to receive p.r.n. blood transfusion. This morning, no new complaints. OBJECTIVE: VITAL SIGNS: Blood pressure is noted at 102/46, heart rate is 72, respiratory rate 12, pulse ox 99%. GENERAL: Awake, alert, sitting comfortable, not in distress. SKIN: Adequate turgor. HEENT: Slightly pale conjunctivae. Anicteric sclerae. No neck mass. No carotid bruits. No JVD. CHEST: No deformities. LUNGS: Clear breath sounds. HEART: Normal sinus rhythm. No murmur. No gallops. No rubs. ABDOMEN: Globular. Soft and nontender. No masses. EXTREMITIES: No edema. No deformities. MEDICATIONS: Medications of October 19, 2018, was reviewed. LABORATORY DATA: Laboratories of October 19, 2018, white count 8.4, hemoglobin 6.6. Sodium 139, potassium 3.7, chloride 101, carbon dioxide 29, BUN 43, creatinine 3.77, glucose 168, calcium 8.5. ASSESSMENT AND PLAN: 1. End-stage renal disease-continue heparin free hemodialysis. Fluid removal only as tolerated. 2. Gastrointestinal bleed-p.r.n. blood transfusion. Hemoglobin still noted to be below 7. Consider transfusing one more unit of packed RBC with dialysis. Please note, GI is following. The patient is status post upper and lower gastrointestinal endoscopy. 3. Chronic anemia. The patient is currently on his weekly Epogen regimen 10,000 units subcu q.week. Job ID: [id number]
--- NOTE | 2018-10-19 10:50 | PRG ---
DATE OF SERVICE: 10/19/2018 REASON FOR CONSULTATION: Hematochezia and anemia. SUBJECTIVE: Per nursing staff and per the patient, he has not had a bowel movement over the last 24 hours with no further episodes of hematochezia or melena. This morning, he states that he is feeling well with no acute events or problems overnight and no recurrence of the confusion exhibited during this admission. Currently, he denies any nausea, vomiting, fevers, chills, abdominal pain, or GI bleeding. OBJECTIVE: VITAL SIGNS: Temperature 98.2, pulse 72, blood pressure 102/46, respiratory rate 17, saturating 100% on 2 L nasal cannula. GENERAL: The patient is lying in bed, in no acute distress. Alert and oriented x4. CARDIOVASCULAR: Regular rate and rhythm. RESPIRATORY: Clear to auscultation bilaterally. ABDOMEN: Normoactive bowel sounds. Soft, nontender, nondistended. EXTREMITIES: Right ldewh-dzw-ibou amputation present as well as left nuvef-snk-zmqd amputation with no evidence of cyanosis, clubbing, or edema. LABORATORY DATA: CBC with a white blood cell count of 8.4, hemoglobin 6.6, hematocrit 18.9, platelets 148. Chemistry with a sodium of 139, potassium 3.7, chloride 101, CO2 of 29, BUN 43, creatinine 3.77, glucose 168. IMAGING DATA: A tagged red cell scan was performed on October 18, 2018, which showed no scintigraphic evidence of active GI bleeding. ASSESSMENT AND PLAN: The patient is an 78-year-old male with past medical history of end-stage renal disease, on hemodialysis; anemia of renal disease; coronary artery disease, status post 4-vessel coronary artery bypass grafting; congestive heart failure; diabetes; hyperlipidemia; hypertension; peripheral vascular disease; and mild dementia, presenting with gastrointestinal bleeding/hematochezia. Gastrointestinal bleeding/hematochezia. The patient initially presented with an acute onset of maroon to black-colored bowel movements, having approximately 6 to 10 of these bloody bowel movements the day prior to admission. While being evaluated in the ER, he was noted to have significant hypotension that responded well to IV fluid administration. 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 No active bleeding source was seen at that time. He subsequently underwent a colonoscopy on October 17, 2018, which showed a mild amount of retained blood within the colon, but did not yield an active gastrointestinal bleeding source (however, the cecum and ascending colon was not visualized during that exam). With a decrease in his H and H on October 18, 2018, he underwent a tagged red cell scan that did not show any evidence of active gastrointestinal bleeding. Over the last 12 to 24 hours, he has not had any additional episodes of hematochezia or melena despite a slight drop in his H and H after receiving 1 unit of blood yesterday. At this time, it is unclear where his bleeding site may be. Given the history of melena, hematochezia, and blood seen during colonoscopy, a lower gastrointestinal origin of the bleeding is more likely. RECOMMENDATIONS: 1. We will continue to trend his H and H and transfuse as necessary to maintain an H and H of 7/21. 2. Continue to monitor clinically for signs of active GI bleeding. 3. If the patient continues to exhibit significant hematochezia or significant decrease in his H and H, I would consider either attempting a repeat colonoscopy or transferring to [facility] for CT angiography. 4. We would avoid any unnecessary anticoagulation. We will continue to follow. Please call with any questions. Job ID: [id number]
--- NOTE | 2018-10-19 10:53 | PDOC.PN ---
- Subjective Encounter Start Date: 10/19/18 Encounter Start Time: 07:00 again pt's H & H is low, unchanged from yesterday, - Objective Resuscitation Status - Order Detail: 10/16/18 14:42 Resuscitation Status Routine Resuscitation Status: FULL: Full Resuscitation MAR Reviewed: Yes Vital Signs & Weight: Vital Signs (12 hours) Temp Pulse Pulse Ox 10/19/18 08:00 100 10/19/18 07:39 99 10/19/18 07:12 98.2 F 72 98 10/19/18 04:00 98.0 F 10/19/18 00:00 98.4 F 79 Weight Admit Weight 223 lb 4.8 oz Weight 223 lb 4.8 oz Most Recent Monitor Data Heart Rate from ECG 83 NIBP 102/46 NIBP BP-Mean 64 Respiration from ECG 21 SpO2 100 I&O: 10/18/18 10/19/18 10/20/18 06:59 06:59 06:59 Intake Total 1420 1390 Output Total 1000 200 Balance 420 1190 Result Diagrams: 10/19/18 04:53 10/19/18 04:53 Additional Labs: Accuchecks 10/19/18 10/18/18 10/18/18 06:02 20:02 16:51 POC Glucose 198 H 292 H 214 H EKG Reviewed by me: Yes Phys Exam - Physical Examination Constitutional: NAD HEENT: PERRLA, moist MMs, sclera anicteric Neck: no JVD, supple Respiratory: no wheezing, no rales, no rhonchi Cardiovascular: RRR, no significant murmur, no rub Gastrointestinal: soft, non-tender, 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, positive bowel sounds right AKA, left BKA Neurological: non-focal, normal sensation Lymphatic: no nodes Psychiatric: normal affect Skin: no rash, normal turgor Dx/Plan (1) GI bleed Code(s): K92.2 - GASTROINTESTINAL HEMORRHAGE, UNSPECIFIED Status: Acute (2) Anemia due to acute blood loss Code(s): D62 - ACUTE POSTHEMORRHAGIC ANEMIA Status: Acute (3) Hypotension Status: Resolved (4) Amputation leg, bilat Code(s): S88.911A - COMPLETE TRAUMATIC AMPUTATION OF R LOW LEG, LEVEL UNSP, INIT ; S88.912A - COMPLETE TRAUMATIC AMPUTATION OF L LOW LEG, LEVEL UNSP, INIT Status: Chronic Qualifiers: Comment: has left bka and right aka (5) Anemia, normocytic normochromic Code(s): D64.9 - ANEMIA, UNSPECIFIED Status: Chronic Comment: (6) CAD (coronary artery disease) Code(s): I25.10 - ATHSCL HEART DISEASE OF [place] CORONARY ARTERY W/O ANG PCTRS Status: Chronic (7) Chronic combined systolic and diastolic CHF (congestive heart failure) Code(s): I50.42 - CHRONIC COMBINED SYSTOLIC AND DIASTOLIC HRT FAIL Status: Chronic Comment: (8) Dementia Code(s): F03.90 - UNSPECIFIED DEMENTIA WITHOUT BEHAVIORAL DISTURBANCE Status: Chronic Qualifiers: (9) Diabetes mellitus type 2 in obese Code(s): E11.69 - TYPE 2 DIABETES MELLITUS WITH OTHER SPECIFIED COMPLICATION; E66.9 - OBESITY, UNSPECIFIED Status: Chronic (10) ESRD (end stage renal disease) on dialysis Code(s): N18.6 - END STAGE RENAL DISEASE; Z99.2 - DEPENDENCE ON RENAL DIALYSIS Status: Chronic Comment: (11) HLD (hyperlipidemia) Code(s): E78.5 - HYPERLIPIDEMIA, UNSPECIFIED Status: Chronic Qualifiers: (12) HTN (hypertension) Code(s): I10 - ESSENTIAL (PRIMARY) HYPERTENSION Status: Chronic Qualifiers: (13) PVD (peripheral vascular disease) Code(s): I73.9 - PERIPHERAL VASCULAR DISEASE, UNSPECIFIED Status: Chronic - Plan cont current plan of care * today dialysis and pt will get PRBC with HD * repeat cbc, bmp tomorrow * GI on board * medication reviewed as below * symptomatic treatment. Review of Systems - Review of Systems ENT: negative: Ear Pain, Ear Discharge, Nose Pain, Nose Discharge, Nose Congestion, Mouth Pain, Mouth Swelling, Throat Pain, Throat Swelling, Other Respiratory: negative: Cough, Dry, Shortness of Breath, Hemoptysis, SOB with Excertion, Pleuritic Pain, Sputum, Wheezing Cardiovascular: negative: chest pain, palpitations, orthopnea, paroxysmal nocturnal dyspnea, edema, light headedness, other Gastrointestinal: negative: Nausea, Vomiting, Abdominal Pain, Diarrhea, Constipation, Melena, Hematochezia, Other Genitourinary: negative: Dysuria, Frequency, Incontinence, Hematuria, Retention , Other Musculoskeletal: negative: Neck Pain, Shoulder Pain, Arm Pain, Back Pain, Hand Pain, Leg Pain, Foot Pain, Other - Medications/Allergies Allergies/Adverse Reactions: Allergies Allergy/AdvReac Type Severity Reaction Status Date / Time acetaminophen [From Hope] Allergy pts family Verified 04/18/18 16:26 notes Hope made him violent hydrocodone [From Hope] Allergy pts family Verified 04/18/18 16:26 notes Irene made him violent zolpidem [From Ambien] AdvReac Verified 04/18/18 11:21 Medications: Current Medications Acetaminophen (Tylenol) 650 mg PO Q6H PRN PRN Reason: Headache/Fever or Pain Last Admin: 10/17/18 22:35 Dose: 650 mg Albuterol/Ipratropium (Duoneb) 3 ml NEB QID PRN PRN Reason: SOB &/or Wheezing Artificial Tears (Liquitears 15ml Bottle) 2 drop EA EYE PRN PRN PRN Reason: Dry Eyes Atorvastatin Calcium (Lipitor) 80 mg PO [facility] Last Admin: 10/18/18 20:41 Dose: 80 mg Dextrose/Water (Dextrose 50%) 25 gm SLOW IVP PRN PRN PRN Reason: Hypoglycemia Ferrous Sulfate (Feosol) 325 mg PO BID-[facility] Last Admin: 10/19/18 10:05 Dose: 325 mg Gabapentin (Neurontin) 100 mg PO TID [facility] Last Admin: 10/19/18 10:05 Dose: 100 mg Glucagon (Glucagon) 1 mg IM PRN PRN PRN Reason: Hypoglycemia Guaifenesin (Robitussin Sf) 200 mg PO Q4H PRN PRN Reason: Cough Guaifenesin/Dextromethorphan (Robitussin Dm) 10 ml PO Q6HR PRN PRN Reason: Cough Hydralazine HCl (Apresoline) 10 mg SLOW IVP Q4H PRN PRN Reason: SBP > 180 and HR < 70 Dextrose/Water (D5w) 1,000 mls @ 0 mls/hr IV .Q0M PRN PRN Reason: Hypoglycemia Insulin Glargine 25 units/ (Miscellaneous Medication) 0.25 mls @ 0 mls/hr [facility] Last Admin: 10/19/18 10:06 Dose: 0.25 mls Insulin Human Lispro (Humalog) 0 units SC .MILD SLIDING SCALE PRN PRN Reason: Mild Correctional Scale Last Admin: 10/19/18 06:32 Dose: 2 unit Insulin Human Lispro (Humalog) 0 units SC .BEDTIME SLIDING SC PRN PRN Reason: Bedtime Correctional Scale Last Admin: 10/18/18 20:49 Dose: 3 unit Loperamide HCl (Imodium) 2 mg PO PRN PRN PRN Reason: Diarrhea/Loose Stools Loratadine (Claritin) 10 mg PO HS PRN PRN Reason: Allergies Melatonin (Melatonin) 4.5 mg PO HS PRN PRN Reason: Insomnia Last Admin: 10/18/18 20:46 Dose: 4.5 mg Mineral Oil/White Petrolatum (Eucerin Cream) 0 gm TOP BIDPRN PRN PRN Reason: Dry Skin Ondansetron HCl (Zofran Odt) 4 mg PO Q6H PRN PRN Reason: Nausea/Vomiting Ondansetron HCl (Zofran) 4 mg IVP Q6H PRN PRN Reason: Nausea/Vomiting Pantoprazole Sodium (Protonix) 40 mg IVP Q12HR [facility] Last Admin: 10/19/18 10:06 Dose: 40 mg Polyethylene Glycol (Miralax) 17 gm PO DAILYPRN PRN PRN Reason: Constipation Propylene Glycol (Systane Opth Drop 15ml Bot) 1 drop EA EYE QID [facility] Last Admin: 10/19/18 10:06 Dose: 1 drop Sodium Chloride (Flush - Normal Saline) 10 ml IVF PRN PRN PRN Reason: Saline Flush Sodium Chloride ([place] Nasal [place] 0.65%) 0 ml EA NARE QIDPRN PRN PRN Reason: Nasal Congestion Sodium Chloride (Flush - Normal Saline) 10 ml IVF Q12HR [facility] Last Admin: 10/19/18 10:07 Dose: 10 ml Sodium Chloride (Flush - Normal Saline) 10 ml IVF PRN PRN PRN Reason: Saline Flush Throat Lozenges (Cepastat Lozenges) 1 nichol PO Q2H PRN PRN Reason: Sore Throat
[2018-10-19] MEDS: Acetaminophen 325 MG TAB PO PRN ×2 (13:24→20:22)
[2018-10-19] MEDS: Atorvastatin Calcium 40 MG TAB PO SCH (20:21)
[2018-10-19] MEDS: Melatonin 3 MG TAB PO PRN (20:22)
[2018-10-20] MEDS: Insulin Glargine 25 UNITS in Pre-Filled Syringe 1 EACH SC SCH (08:19)
[2018-10-20] MEDS: Gabapentin 100 MG CAP PO SCH (08:22)
[2018-10-20] MEDS: Pantoprazole 40 MG VIAL IVP SCH (08:22)
[2018-10-20] MEDS: Polyethylene Glycol OPTH DROP 15 ML BOT EA EYE SCH ×2 (08:22→12:37)
[2018-10-20] MEDS: Ferrous Sulfate 325 MG TAB PO SCH (08:22)
[2018-10-20] MEDS: Acetaminophen 325 MG TAB PO PRN (08:26)
--- NOTE | 2018-10-20 10:15 | PRG ---
DATE OF SERVICE: 10/20/2018 SUBJECTIVE: Mr. Mancera is an 78-year-old white male with ESRD, on maintenance hemodialysis, was admitted for GI bleed. An upper and lower GI endoscopy was done, which showed no acute bleeding. He has remained anemic, has received blood again with dialysis yesterday. We are currently using heparin free dialysis. No new complaints today. No blood pressure. No chest pain or shortness of breath. He tells me he is feeling better. OBJECTIVE: VITAL SIGNS: Blood pressure 151/67, heart rate 86, respiratory rate 18, temperature 99.1, pulse ox 94%. GENERAL: The patient is awake, alert, comfortable, not in distress. SKIN: Adequate turgor. HEENT: Pinkish conjunctivae. Anicteric sclerae. No neck mass. No carotid bruits. No JVD. CHEST: No deformities. LUNGS: Clear breath sounds. No wheezing. No crackles. HEART: Normal sinus rhythm. No murmurs. No gallops. No rubs. ABDOMEN: Globular, soft, nontender. EXTREMITIES: Bilateral leg amputation. MEDICATIONS: Medications of October 20, 2018, were reviewed. LABORATORY DATA: Laboratories of October 19, 2018, white count 8.4, hemoglobin 6.6. Sodium 139, potassium 3.7, chloride 101, carbon dioxide 29, BUN 43, creatinine 3.77, calcium 8.5. October 20, 2018, glucose 150. ASSESSMENT AND PLAN: 1. Gastrointestinal bleed-no recurrence of any active bleeding-no hematochezia, no melena. He received one unit of packed RBC yesterday with dialysis. 2. End-stage renal disease. Continue heparin free hemodialysis. Fluid removal only as tolerated by the patient. 3. Chronic anemia on weekly Epogen. Recheck CBC, basic met in a.m. Job ID: [id number]
[2018-10-20 10:18] LABS: #Eosinphils 0.3 thou/uL (0.0-0.7); #Lymphocytes 1.5 thou/uL (1.20-3.40); #Monocytes 0.9 thou/uL (0.11-0.59); #Neutrophils 6.5 thou/uL (1.40-6.50); %Basophils 0.4 % (0.0-1.0); %Lymphocytes 15.8 % (21.0-51.0); %Monocytes 9.9 % (0.0-10.0); %Neutrophils 70.9 % (42.0-75.0); Hemoglobin 8.5 g/dL (14.0-18.0); Mean Corpuscular Hemoglobin 34.9 pg (27.0-31.0); Mean Corpuscular Volume 99.5 fL (78.0-98.0); Platelet Count 171 thou/uL (130-400); RBC Distribution Width 13.8 % (11.5-14.5); Red Blood Cell (RBC) Count 2.43 mill/uL (4.70-6.10); White Blood Cell (WBC) Count 9.2 thou/uL (4.8-10.8)
--- NOTE | 2018-10-20 11:00 | DIS ---
DATE OF ADMISSION: 10/16/2018 DATE OF DISCHARGE: 10/20/2018 PRIMARY CARE PHYSICIAN: Kelly Pacheco MD. DISCHARGE DISPOSITION: [facility] home. PRIMARY DISCHARGE DIAGNOSES: 1. Gastrointestinal bleed. 2. Hypotension due to volume loss. 3. Anemia due to acute blood loss. SECONDARY DISCHARGE DIAGNOSES: Peripheral vascular disease, history of right BKA and left AKA, hypertension, dyslipidemia, ESRD on hemodialysis, diabetes type 2, morbid obesity with BMI 55, dementia, chronic combined systolic and diastolic heart failure, coronary artery disease, chronic normocytic anemia. PRIMARY PROCEDURE/OPERATION: EGD was done by Dr. 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 Colonoscopy was poor prep without any acute blood loss. RADIOLOGICAL INVESTIGATION: CT abdomen and pelvis. GI bleed scan nuclear medicine. SIGNIFICANT LABORATORY DATA: Hemoglobin 8.5. INR 1.2. Creatinine 3.77. Stool for guaiac, positive. DISCHARGE MEDICATIONS: Following our scheduled medication: 1. Lipitor 80 mg p.o. at bedtime. 2. Coreg 3.125 mg b.i.d. 3. Colace 100 mg daily. 4. Gabapentin 100 mg t.i.d. 5. Melatonin 5 mg p.o. at bedtime. 6. MiraLAX 17 g daily. 7. Aspirin 81 mg daily. 8. Procrit 10,000 units subcu weekly. 9. Ferrous sulfate 325 mg b.i.d. 10. Lantus 25 units in morning and 10 units at bedtime. 11. Humalog insulin as per sliding scale. 12. Protonix 40 mg p.o. b.i.d. CONTRAINDICATION: None. CODE STATUS: Full code. INPATIENT CONTROLS OPERATOR MOLDED GOODS: Dr. Sainz was following for hemodialysis. Dr. Mullins was following for GI bleed. TEST RESULTS PENDING ON DISCHARGE: None. ALLERGIES: ACETAMINOPHEN, HYDROCODONE, AMBIEN. DISCHARGE PLAN: Posthospital, the patient is discharged back to [facility]. Subsequently, he will follow up with primary care physician. HOSPITAL COURSE: An 78-year-old male who was admitted by Dr. Alas. Please see his H and P for further details. The patient was admitted for acute gastrointestinal bleed and because of that he had hypotension that has responded to IV fluid. He had anemia due to acute blood loss. His lowest hemoglobin while in the hospital was 6.6. He was given total 3 units of blood transfusion. He underwent upper endoscopy, which showed Herrera's esophagus and hiatal hernia. Colonoscopy was not showing any acute source of bleeding. He also had RBC tagged nuclear medicine scan which did not show any active bleeding. His H and H remained stable and the patient did not have any further bleeding. His blood pressure is also improved. During this admission, we adjusted blood pressure medication as above. The patient is seen and examined at bedside today. All review of systems reviewed with him and negative. Paperwork for discharge done and discharge medication reconciliation done. The patient is medically stable for discharge and he will follow up with primary care physician as directed. Job ID: [id number]
[2018-10-20 11:35] VITALS: BP 120/60; TEMP 98.7
--- NOTE | 2018-10-20 11:44 | PDOC.PN ---
- Subjective Encounter Start Date: 10/20/18 Encounter Start Time: 10:40 Patient seen and examined. No new complaints. No overnight events - Objective Resuscitation Status - Order Detail: 10/16/18 14:42 Resuscitation Status Routine Resuscitation Status: FULL: Full Resuscitation MAR Reviewed: Yes Vital Signs & Weight: Vital Signs (12 hours) Temp Pulse Resp BP Pulse Ox 10/20/18 11:34 98.7 F 81 18 120/60 97 10/20/18 08:29 99.1 F 86 18 151/67 H 94 L 10/20/18 04:26 97.9 F 85 18 137/63 94 L 10/20/18 00:15 98.5 F 87 18 114/55 L 93 L Weight Admit Weight 223 lb 4.8 oz Weight 223 lb 4.8 oz Most Recent Monitor Data Heart Rate from ECG 83 NIBP 102/46 NIBP BP-Mean 64 Respiration from ECG 21 SpO2 100 I&O: 10/19/18 10/20/18 10/21/18 06:59 06:59 06:59 Intake Total 1390 600 Output Total 200 Balance 1190 600 Result Diagrams: 10/20/18 09:58 10/19/18 04:53 Additional Labs: Accuchecks 10/20/18 10/19/18 10/19/18 05:40 20:36 18:14 POC Glucose 150 H 231 H 160 H 10/19/18 11:41 POC Glucose 309 H Phys Exam - Physical Examination Constitutional: NAD HEENT: PERRLA, moist MMs, sclera anicteric Neck: no JVD, supple Respiratory: no wheezing, no rales, no rhonchi Cardiovascular: RRR, no significant murmur, no rub Gastrointestinal: soft, non-tender, 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 Lymphatic: no nodes Psychiatric: normal affect Skin: no rash, normal turgor Dx/Plan (1) GI bleed Code(s): K92.2 - GASTROINTESTINAL HEMORRHAGE, UNSPECIFIED Status: Acute (2) Anemia due to acute blood loss Code(s): D62 - ACUTE POSTHEMORRHAGIC ANEMIA Status: Acute (3) Hypotension Status: Resolved (4) Amputation leg, bilat Code(s): S88.911A - COMPLETE TRAUMATIC AMPUTATION OF R LOW LEG, LEVEL UNSP, INIT ; S88.912A - COMPLETE TRAUMATIC AMPUTATION OF L LOW LEG, LEVEL UNSP, INIT Status: Chronic Qualifiers: Comment: has left bka and right aka (5) Anemia, normocytic normochromic Code(s): D64.9 - ANEMIA, UNSPECIFIED Status: Chronic Comment: (6) CAD (coronary artery disease) Code(s): I25.10 - ATHSCL HEART DISEASE OF [place] CORONARY ARTERY W/O ANG PCTRS Status: Chronic (7) Chronic combined systolic and diastolic CHF (congestive heart failure) Code(s): I50.42 - CHRONIC COMBINED SYSTOLIC AND DIASTOLIC HRT FAIL Status: Chronic Comment: (8) Dementia Code(s): F03.90 - UNSPECIFIED DEMENTIA WITHOUT BEHAVIORAL DISTURBANCE Status: Chronic Qualifiers: (9) Diabetes mellitus type 2 in obese Code(s): E11.69 - TYPE 2 DIABETES MELLITUS WITH OTHER SPECIFIED COMPLICATION; E66.9 - OBESITY, UNSPECIFIED Status: Chronic (10) ESRD (end stage renal disease) on dialysis Code(s): N18.6 - END STAGE RENAL DISEASE; Z99.2 - DEPENDENCE ON RENAL DIALYSIS Status: Chronic Comment: (11) HLD (hyperlipidemia) Code(s): E78.5 - HYPERLIPIDEMIA, UNSPECIFIED Status: Chronic Qualifiers: (12) HTN (hypertension) Code(s): I10 - ESSENTIAL (PRIMARY) HYPERTENSION Status: Chronic Qualifiers: (13) PVD (peripheral vascular disease) Code(s): I73.9 - PERIPHERAL VASCULAR DISEASE, UNSPECIFIED Status: Chronic - Plan cont current plan of care, continue antibiotics * medication reviewed as below * symptomatic treatment * see discharge summery. Review of Systems - Review of Systems ENT: negative: Ear Pain, Ear Discharge, Nose Pain, Nose Discharge, Nose Congestion, Mouth Pain, Mouth Swelling, Throat Pain, Throat Swelling, Other Respiratory: negative: Cough, Dry, Shortness of Breath, Hemoptysis, SOB with Excertion, Pleuritic Pain, Sputum, Wheezing Cardiovascular: negative: chest pain, palpitations, orthopnea, paroxysmal nocturnal dyspnea, edema, light headedness, other Gastrointestinal: negative: Nausea, Vomiting, Abdominal Pain, Diarrhea, Constipation, Melena, Hematochezia, Other Genitourinary: negative: Dysuria, Frequency, Incontinence, Hematuria, Retention , Other Musculoskeletal: negative: Neck Pain, Shoulder Pain, Arm Pain, Back Pain, Hand Pain, Leg Pain, Foot Pain, Other - Medications/Allergies Allergies/Adverse Reactions: Allergies Allergy/AdvReac Type Severity Reaction Status Date / Time acetaminophen [From [place]] Allergy pts family Verified 04/18/18 16:26 notes Irene made him violent hydrocodone [From [place]] Allergy pts family Verified 04/18/18 16:26 notes Irene made him violent zolpidem [From Ambien] AdvReac Verified 04/18/18 11:21 Medications: Current Medications Acetaminophen (Tylenol) 650 mg PO Q6H PRN PRN Reason: Headache/Fever or Pain Last Admin: 10/20/18 08:26 Dose: 650 mg Albuterol/Ipratropium (Duoneb) 3 ml NEB QID PRN PRN Reason: SOB &/or Wheezing Artificial Tears (Liquitears 15ml Bottle) 2 drop EA EYE PRN PRN PRN Reason: Dry Eyes Atorvastatin Calcium (Lipitor) 80 mg PO [facility] Last Admin: 10/19/18 20:21 Dose: 80 mg Dextrose/Water (Dextrose 50%) 25 gm SLOW IVP PRN PRN PRN Reason: Hypoglycemia Ferrous Sulfate (Feosol) 325 mg PO BID[facility] Last Admin: 10/20/18 08:22 Dose: 325 mg Gabapentin (Neurontin) 100 mg PO TID [facility] Last Admin: 10/20/18 08:22 Dose: 100 mg Glucagon (Glucagon) 1 mg IM PRN PRN PRN Reason: Hypoglycemia Guaifenesin (Robitussin Sf) 200 mg PO Q4H PRN PRN Reason: Cough Guaifenesin/Dextromethorphan (Robitussin Dm) 10 ml PO Q6HR PRN PRN Reason: Cough Hydralazine HCl (Apresoline) 10 mg SLOW IVP Q4H PRN PRN Reason: SBP > 180 and HR < 70 Dextrose/Water (D5w) 1,000 mls @ 0 mls/hr IV .Q0M PRN PRN Reason: Hypoglycemia Insulin Glargine 25 units/ (Miscellaneous Medication) 0.25 mls @ 0 mls/hr SC [facility] Last Admin: 10/20/18 08:19 Dose: 0.25 mls Insulin Human Lispro (Humalog) 0 units SC .MILD SLIDING SCALE PRN PRN Reason: Mild Correctional Scale Last Admin: 10/19/18 12:28 Dose: 5 unit Insulin Human Lispro (Humalog) 0 units SC .BEDTIME SLIDING SC PRN PRN Reason: Bedtime Correctional Scale Last Admin: 10/19/18 21:39 Dose: 2 unit Loperamide HCl (Imodium) 2 mg PO PRN PRN PRN Reason: Diarrhea/Loose Stools Loratadine (Claritin) 10 mg PO HS PRN PRN Reason: Allergies Melatonin (Melatonin) 4.5 mg PO HS PRN PRN Reason: Insomnia Last Admin: 10/19/18 20:22 Dose: 4.5 mg Mineral Oil/White Petrolatum (Eucerin Cream) 0 gm TOP BIDPRN PRN PRN Reason: Dry Skin Ondansetron HCl (Zofran Odt) 4 mg PO Q6H PRN PRN Reason: Nausea/Vomiting Ondansetron HCl (Zofran) 4 mg IVP Q6H PRN PRN Reason: Nausea/Vomiting Pantoprazole Sodium (Protonix) 40 mg PO BID RENA Polyethylene Glycol (Miralax) 17 gm PO DAILYPRN PRN PRN Reason: Constipation Last Admin: 10/19/18 18:21 Dose: 17 gm Propylene Glycol (Systane Opth Drop 15ml Bot) 1 drop EA EYE QID [facility] Last Admin: 10/20/18 08:22 Dose: 1 drop Sodium Chloride (Flush - Normal Saline) 10 ml IVF PRN PRN PRN Reason: Saline Flush Sodium Chloride ([place] Nasal Blum 0.65%) 0 ml EA NARE QIDPRN PRN PRN Reason: Nasal Congestion Sodium Chloride (Flush - Normal Saline) 10 ml IVF Q12HR [facility] Last Admin: 10/19/18 20:21 Dose: 10 ml Sodium Chloride (Flush - Normal Saline) 10 ml IVF PRN PRN PRN Reason: Saline Flush Throat Lozenges (Cepastat Lozenges) 1 nichol PO Q2H PRN PRN Reason: Sore Throat
[2018-10-20] MEDS: HumaLOG 300 UNITS/3 ML VIAL SC PRN (12:36)
--- NOTE | 2018-10-21 07:19 | DIS ---
DATE OF ADMISSION: 10/16/2018 DATE OF DISCHARGE: ADDENDUM: This patient has chronic systolic and diastolic heart failure based on previous echo and he is not given YEYO inhibitor and ARB because of renal failure and that is why contraindicated. He is at high risk for hyperkalemia with this medication. Job ID: [id number]
== END 2018-10-20 13:14 | DRG 377 ==
LOC: ERS 09:31 → IMCU/EMU 16:20 → ONC 10-19 10:36
PROVIDERS: ADMIT Family Medicine; ATTEND Family Medicine
PROC: 5A1D70Z Performance of Urinary Filtration, Intermittent, Less than 6 Hours Per Day (ICD-10-PCS; principal; 2018-10-16)
PROC: 0DJD8ZZ Inspection of Lower Intestinal Tract, Via Natural or Artificial Opening Endoscopic (ICD-10-PCS; 2018-10-16)
PROC: 0DJ08ZZ Inspection of Upper Intestinal Tract, Via Natural or Artificial Opening Endoscopic (ICD-10-PCS; 2018-10-16)
PROC: 30233N1 Transfusion of Nonautologous Red Blood Cells into Peripheral Vein, Percutaneous Approach (ICD-10-PCS; 2018-10-16)
DX: K57.31 Diverticulosis of large intestine without perforation or abscess with bleeding (principal); N18.6 End stage renal disease; D62 Acute posthemorrhagic anemia; I13.2 Hypertensive heart and chronic kidney disease with heart failure and with stage 5 chronic kidney disease, or end stage renal disease; F03.91 Unspecified dementia, unspecified severity, with behavioral disturbance; I50.42 Chronic combined systolic (congestive) and diastolic (congestive) heart failure; Z68.43 Body mass index [BMI] 50.0-59.9, adult; D63.1 Anemia in chronic kidney disease; I25.10 Atherosclerotic heart disease of native coronary artery without angina pectoris; E11.22 Type 2 diabetes mellitus with diabetic chronic kidney disease; E78.5 Hyperlipidemia, unspecified; E11.51 Type 2 diabetes mellitus with diabetic peripheral angiopathy without gangrene; G54.7 Phantom limb syndrome without pain; E86.9 Volume depletion, unspecified; E11.42 Type 2 diabetes mellitus with diabetic polyneuropathy; J44.9 Chronic obstructive pulmonary disease, unspecified; K63.5 Polyp of colon; E11.69 Type 2 diabetes mellitus with other specified complication; I95.9 Hypotension, unspecified; K22.70 Barrett's esophagus without dysplasia; E66.9 Obesity, unspecified; K44.9 Diaphragmatic hernia without obstruction or gangrene; Z99.2 Dependence on renal dialysis; Z95.1 Presence of aortocoronary bypass graft; Z79.82 Long term (current) use of aspirin; Z79.899 Other long term (current) drug therapy; Z79.4 Long term (current) use of insulin; Z88.8 Allergy status to other drugs, medicaments and biological substances; Z89.511 Acquired absence of right leg below knee; Z89.612 Acquired absence of left leg above knee
CPT/HCPCS: 36415; 36416; 36430; 74177; 78278; 80048; 80053; 82274; 82728; 83540; 83550; 84484; 85007; 85025; 85027; 85610; 85730; 86850; 86900; 86901; 87340; 90935; 93005; A9604; C9113; G0257; J1825; J2001; J2405; J2704; J3490; P9016; Q5105; Q9966

== ENCOUNTER 2019-02-09 19:51 | Inpatient (IN) | payer MEDICARE, MEDICAID ==
--- NOTE | 2019-02-09 20:44 | RAD ---
XR Chest 1 View Portable History: Shortness of breath Comparison: Radiograph April 2018 Findings: Moderate pulmonary edema. Small effusions. Heart size is enlarged. Rightward displaced fractured median sternotomy wire is similar. Impression: Cardiomegaly, small effusions, and moderate pulmonary edema.
[2019-02-09 21:18] LABS: #Eosinphils 0.2 thou/uL (0.0-0.7); #Lymphocytes 0.9 thou/uL (1.20-3.40); #Monocytes 0.8 thou/uL (0.11-0.59); #Neutrophils 8.3 thou/uL (1.40-6.50); %Basophils 0.2 % (0.0-1.0); %Eosinophils 2.4 % (0.0-10.0); %Lymphocytes 8.6 % (21.0-51.0); %Monocytes 7.4 % (0.0-10.0); %Neutrophils 81.4 % (42.0-75.0); Hemoglobin 11.3 g/dL (14.0-18.0); Mean Corpuscular HGB CONC 34.3 g/dL (32.0-36.0); Mean Corpuscular Hemoglobin 33.9 pg (27.0-31.0); Mean Corpuscular Volume 98.8 fL (78.0-98.0); Mean Platelet Volume 8.5 fL (7.4-10.4); Platelet Count 173 thou/uL (130-400); RBC Distribution Width 15.2 % (11.5-14.5); Red Blood Cell (RBC) Count 3.33 mill/uL (4.70-6.10); White Blood Cell (WBC) Count 10.2 thou/uL (4.8-10.8)
[2019-02-09 21:43] LABS: ALT (SGPT) 23 U/L (8-55); AST (SGOT) 17 U/L (5-34); Albumin 4.2 g/dL (3.4-4.8); Alkaline Phosphatase 91 U/L (40-150); Anion Gap 16 mmol/L (10-20); BUN (Urea Nitrogen) 65 mg/dL (8.4-25.7); Bilirubin, Total 0.5 mg/dL (0.2-1.2); Calc. Creatinine Clearance 0 mL/min (70-130); Calcium 9.5 mg/dL (7.8-10.44); Carbon Dioxide 27 mmol/L (23-31); Chloride 96 mmol/L (98-107); Estimated GFR-MDRD 13; Globulin 2.9 g/dL (2.4-3.5); Glucose 240 mg/dL (83-110); Potassium 4.9 mmol/L (3.5-5.1); Protein, Total 7.1 g/dL (5.8-8.1); Sodium 134 mmol/L (136-145)
[2019-02-09 22:01] LABS: CKMB 3.2 ng/mL (0-6.6)
[2019-02-09] MEDS ORDERED: cefTRIAXone\\ROCEPHIN 1 GM VIAL ONE (22:08)
[2019-02-09 23:22] LABS: HBSAg Index 0.17 S/CO (0-0.99); Hep B Surf Ag Non-Reactive S/CO (NonReactive)
--- NOTE | 2019-02-09 23:30 | HP ---
PRIMARY CARE PHYSICIAN: Kelly Pacheco MD PRIMARY SUPERVISOR SCENIC ARTS: Johnny Blount MD REASON FOR ADMISSION: Acute respiratory failure with hypoxia, volume overload, sepsis. HISTORY OF PRESENT ILLNESS: An 79-year-old male, who lives at [facility]. The patient has ESRD and he is on hemodialysis Friday, Friday, Friday. As per report, the patient missed dialysis on Friday and he had partial dialysis yesterday. At detention, he was having increasing shortness of breath. He was saturating below 90%. He was in respiratory distress. When he arrived to emergency room, he was also febrile with a temperature 102.8. He required a BiPAP. Dr. Sainz was notified, who is going to do dialysis after admission. The patient was comfortable with BiPAP. He denies any constipation, or diarrhea, but he does have cough. Yesterday, he has to stop dialysis because of cramps. Today, he appeared sick. He refused dinner. He was wheezing and he appeared more short of breath. In the emergency room, chest x-ray showed moderate pulmonary edema. Routine blood test showed normal CBC with a left shift, indeterminate troponin. REVIEW OF SYSTEMS: CONSTITUTIONAL: Negative for weight loss or gain, ability to conduct usual activities. SKIN: Negative for rash, itching. EYES: Negative for double vision, pain. ENT/MOUTH: Negative for nose bleeding, neck stiffness, pain, tenderness. CARDIOVASCULAR: Negative for palpitations, dyspnea on exertion, orthopnea. RESPIRATORY: Negative for shortness of breath, wheezing, cough, hemoptysis, fever or night sweats. GASTROINTESTINAL: Negative for poor appetite, abdominal pain, heartburn, nausea, vomiting, constipation, or diarrhea. GENITOURINARY: Negative for urgency, frequency, dysuria, nocturia. MUSCULOSKELETAL: Negative for pain, swelling. NEUROLOGIC/PSYCHIATRIC: Negative for anxiety, depression. ALLERGY/IMMUNOLOGIC: Negative for skin rash, bleeding tendency. Please see my HPI for pertinent positives and negatives. All other review of systems reviewed and negative except as mentioned in the HPI. PAST MEDICAL HISTORY: ESRD, on hemodialysis Friday, Friday, Friday, anemia of renal disease, coronary artery disease, chronic stage C congestive heart failure, systolic, diabetes type 2, hypertension, dyslipidemia, peripheral vascular disease, dementia, phantom limb syndrome. PAST SURGICAL HISTORY: AV fistula placement, CABG x4, left above-knee amputation, right below-knee amputation, hernia repair. PAST PSYCHIATRIC HISTORY: Reviewed and negative. ALLERGIES: ACETAMINOPHEN, HYDROCODONE, AMBIEN. FAMILY HISTORY: Diabetes, hypertension, heart disease runs among several family members. SOCIAL HISTORY: The patient is a long-term resident at [facility]. He is . No history of tobacco, alcohol, or illicit drug abuse. He is nonambulatory. EMERGENCY ROOM COURSE: The patient has received Rocephin, vancomycin, and DuoNeb therapy. CURRENT HOME MEDICATIONS: The patient does not have any medication with him at this point, but based on our hospital record, the patient is on following medications: 1. Lipitor 80 mg p.o. at bedtime. 2. Coreg 3.125 mg b.i.d. 3. Gabapentin 100 mg t.i.d. 4. DuoNeb q.6 hourly. 5. Melatonin 5 mg p.o. at bedtime. 6. MiraLAX 17 g p.o. daily. 7. Aspirin 81 mg p.o. daily. 8. Ferrous sulfate 325 mg p.o. daily. 9. Lantus 25 units subcu in the morning and 10 units in the evening. 10. Protonix 40 mg p.o. daily. 11. Procrit every week. PHYSICAL EXAMINATION: VITAL SIGNS: On arrival, blood pressure 130/81, pulse 78, respiratory rate 20, temperature 102.8, saturation 98% on BiPAP, weight 122.5 kg. GENERAL: The patient is currently alert, awake, follows simple command, chronically ill, no obvious acute distress. HEENT: Head; normocephalic, atraumatic. Eyes; pupils round, reactive to light. Extraocular muscle intact. No nystagmus. ENT; oropharynx within normal limits. No pharyngeal erythema. No exudate. No oral thrush. NECK: Supple. No JVD. No thyromegaly. No carotid bruit. No meningeal signs of irritation. LUNGS: Bilateral scattered rales heard. Wheezing present bilaterally. Mild respiratory distress, currently on BiPAP. Chest wall, the patient does have sternotomy scar. CARDIAC: S1, S2 regular. No gross murmur elicited. ABDOMEN: Obesity present. Bowel sounds present. No peritoneal sign. No guarding. No rigidity. No rebound. BACK: Unremarkable. No CVA tenderness. EXTREMITIES: Upper extremities, left brachial AV fistula. Lower extremities; left above-knee amputation, right below-knee amputation. NEUROLOGIC: Grossly nonfocal examination. Speech normal. SKIN: No skin rash. PSYCHIATRIC: Normal affect. SIGNIFICANT LABORATORY DATA: EKG showing normal sinus rhythm, nonspecific ST-T changes. Chest x-ray showing cardiomegaly, bilateral small pleural effusion, pulmonary edema. CBC; WBC 10.2, hemoglobin 11.3, platelet 173. BMP; sodium 134, potassium 4.9, chloride 96, carbon dioxide 27, anion gap 16, BUN 65, creatinine 4.34, glucose 240, calcium 9.5, lactic acid 1.5. LFT; AST 17, ALT 23, alkaline phosphatase 91, albumin 4.2. CK-MB 3.2. Troponin 0.034. ASSESSMENT: 1. Acute respiratory failure with hypoxia due to volume overload due to missed hemodialysis. 2. Acute on chronic systolic/diastolic congestive heart failure due to volume overload. 3. Volume overload due to missed hemodialysis. 4. Sepsis. The patient is febrile with temperature 102. Source of infection unclear, possibly early pneumonia, cannot be entirely excluded. 5. End-stage renal disease, on hemodialysis Friday, Friday, Friday. 6. Anemia of renal disease. 7. Type 2 myocardial infarction. 8. Diabetes type 2, on insulin. 9. Gastroesophageal reflux disease. 10. Diabetic neuropathy as well as phantom limb syndrome. 11. Dyslipidemia. 12. Chronic obstructive pulmonary disease. PLAN: 1. Admission to [facility], BiPAP. Nephrology will be consulted. The patient will need hemodialysis. After fluid removal, we will try to wean off BiPAP. We will follow up on culture result. 2. Empiric antibiotic therapy with Rocephin and vancomycin. His selected home medications will be continued while in the hospital. 3. Deep venous thrombosis prophylaxis, heparin 5000 units subcu twice daily. 4. Gastrointestinal prophylaxis, Protonix 40 mg p.o. daily. CODE STATUS: Discussed with the patient and his daughter. The patient is full code. The patient's daughter is surrogate decision maker. DISPOSITION PLAN: Based on clinical course, we are expecting the patient's stay in hospital more than 2 midnights. Plan of care discussed with the patient and family member at bedside in the emergency room. Job ID: [id number]
[2019-02-09] MEDS ORDERED: Ondansetron PF 4 MG/2 ML Vial IVP PRN ×2 (23:39→23:43)
[2019-02-09] MEDS ORDERED: Ondansetron ODT 4 MG TAB SL PRN (23:39)
[2019-02-09] MEDS ORDERED: Acetaminophen 325 MG TAB PO PRN (23:39)
[2019-02-09] MEDS ORDERED: Cepastat Lozenges 1 LOZ PO PRN (23:43)
[2019-02-09] MEDS ORDERED: Dextrose 5% in Water 1,000 ML IV PRN (23:43)
[2019-02-09] MEDS ORDERED: Artificial Tears 18 DROP/0.9 ML EA EYE PRN (23:43)
[2019-02-09] MEDS ORDERED: hydrALAZINE 20 MG/ML VIAL SLOW IVP PRN (23:43)
[2019-02-09] MEDS ORDERED: Labetalol HCl 100 MG/20 ML VIAL SLOW IVP PRN (23:43)
[2019-02-09] MEDS ORDERED: Ibuprofen 200 MG TAB PO PRN (23:43)
[2019-02-09] MEDS ORDERED: Sodium Chloride 0.65% Nasal 44 ML BOT EA NARE PRN (23:43)
[2019-02-09] MEDS ORDERED: Calcium Carbonate 500 MG ChewTAB PO PRN (23:43)
[2019-02-09] MEDS ORDERED: Guaifenesin DM 100-10/5 ML UDCUP PO PRN (23:43)
[2019-02-09] MEDS ORDERED: Bisacodyl 10 MG SUPP PR PRN (23:43)
[2019-02-09] MEDS ORDERED: Loperamide HCl 2 MG CAP PO PRN (23:43)
[2019-02-09] MEDS ORDERED: Ondansetron ODT 4 MG TAB PO PRN (23:43)
[2019-02-09] MEDS ORDERED: HumaLOG 300 UNITS/3 ML VIAL SC PRN ×2 (23:43)
[2019-02-09] MEDS ORDERED: Senokot S 8.6-50 MG TAB PO PRN (23:43)
[2019-02-09] MEDS ORDERED: Loratadine 10 MG TAB PO PRN (23:43)
[2019-02-09] MEDS ORDERED: HOLD VANCOMYCIN FOR LEVEL >20 FS SCH (23:45)
[2019-02-09 23:49] VITALS: BP 101/44
[2019-02-10 05:31] LABS: Albumin 3.7 g/dL (3.4-4.8); Anion Gap 13 mmol/L (10-20); BUN (Urea Nitrogen) 41 mg/dL (8.4-25.7); BUN/Creatinine Ratio 12.89; Calc. Creatinine Clearance 27 mL/min (70-130); Carbon Dioxide 27 mmol/L (23-31); Chloride 98 mmol/L (98-107); Estimated GFR-MDRD 19; Glucose 125 mg/dL (83-110); Potassium 3.9 mmol/L (3.5-5.1); Sodium 134 mmol/L (136-145)
[2019-02-10 05:51] LABS: #Eosinphils 0.4 thou/uL (0.0-0.7); #Lymphocytes 1.2 thou/uL (1.20-3.40); #Monocytes 1.1 thou/uL (0.11-0.59); #Neutrophils 6.1 thou/uL (1.40-6.50); %Basophils 0.1 % (0.0-1.0); %Eosinophils 4.7 % (0.0-10.0); %Lymphocytes 13.7 % (21.0-51.0); %Monocytes 12.5 % (0.0-10.0); Hemoglobin 11.5 g/dL (14.0-18.0); Mean Corpuscular HGB CONC 33.3 g/dL (32.0-36.0); Mean Corpuscular Hemoglobin 32.4 pg (27.0-31.0); Mean Corpuscular Volume 97.3 fL (78.0-98.0); Mean Platelet Volume 8.9 fL (7.4-10.4); Platelet Count 133 thou/uL (130-400); RBC Distribution Width 15.4 % (11.5-14.5); Red Blood Cell (RBC) Count 3.53 mill/uL (4.70-6.10); White Blood Cell (WBC) Count 8.9 thou/uL (4.8-10.8)
[2019-02-10 08:23] LABS: Vancomycin, Random 10.8 ug/mL (See Comment)
[2019-02-10] MEDS ORDERED: Vancomycin HCl 1 GM in Premix Bag 1 BAG IVPB SCH (09:00)
[2019-02-10] MEDS ORDERED: Vancomycin HCl 1.5 GM in Sodium Chloride 0.9% 250 ML 300 ML IVPB SCH (09:00)
[2019-02-10] MEDS ORDERED: Vancomycin HCl 750 MG in Sodium Chloride 0.9% 250 ML 250 ML IVPB SCH (09:00)
[2019-02-10] MEDS ORDERED: Vancomycin HCl 1.25 GM in Sodium Chloride 0.9% 250 ML 250 ML IVPB SCH (09:00)
[2019-02-10] MEDS: Heparin 5,000 UNITS/ML VIAL SC SCH ×2 (09:43→20:51)
--- NOTE | 2019-02-10 13:01 | CON ---
DATE OF CONSULTATION: HISTORY OF PRESENT ILLNESS: Mr. Mancera is an 79-year-old white male, who was admitted due to respiratory distress. He was noted to be in volume overload. An emergent hemodialysis was done yesterday. We were able to remove about 800 mL of fluid and this fluid removal was somewhat limited due to the low blood pressure. He was also noted to be febrile and may be septic. This morning, his oxygenation is much improved and ranging from 99% to 100% on 2 to 3 L of O2. He is also on empiric IV antibiotics. We are following up this patient for his maintenance hemodialysis. REVIEW OF SYSTEMS: Positive for mild shortness of breath. No chest pain. Positive for fever. No chest pain. No syncopal episode. Decreased appetite. Decreased energy level. No productive cough. No hematochezia. No melena. No hematemesis. No dysuria. No abdominal pain. No headache. No syncopal episode. MEDICATIONS: On February 10, 2019; 1. Acetaminophen 650 mg q.4 p.r.n. 2. Ceftriaxone 1 g IV q.24 h. 3. Heparin 5000 units subcu b.i.d. 4. Ibuprofen 400 mg q.4 p.r.n. 5. DuoNeb q.6. 6. Zofran 4 mg IV q.6 p.r.n. 7. Vancomycin p.r.n. PAST MEDICAL HISTORY: 1. ESRD and the patient is currently on maintenance hemodialysis. 2. Type 2 diabetes mellitus. 3. Peripheral vascular disease. 4. Hyperlipidemia. 5. Coronary artery disease. 6. Peripheral neuropathy. 7. COPD. 8. Diverticulosis. 9. Status post gastric ulcer. 10. Status post CHF. PAST SURGICAL HISTORY: Status post cardiac cath, status post CABG, status post right BKA, status post left AKA, status post upper and lower GI endoscopy, status post AV fistula placement, status post cuffed dialysis catheter placement, and status post left knee surgery. SOCIAL HISTORY: The patient is at [facility] and , 4 children and one step child. Smoked for 50 years, two packs a day. Alcohol, none. No IV drug abuse. Retired [employer]. Status post blood transfusion. Sedentary lifestyle. ALLERGIES: NONE. TRAUMA: Status post left knee fracture. IMMUNIZATIONS: Up-to-date. HOSPITALIZATIONS: Please see past medical history. FAMILY HISTORY: No family history of ESRD. PHYSICAL EXAMINATION: VITAL SIGNS: Blood pressure is 117/78, heart rate 76, respiratory rate 20, and O2 saturation 98%. GENERAL: Awake, alert, comfortable, not in overt distress. SKIN: Adequate turgor. HEENT: Pinkish conjunctivae. Anicteric sclerae. NECK: No neck mass. No carotid bruits. No JVD. CHEST: No deformities. LUNGS: Decreased breath sounds. HEART: Normal sinus rhythm. No murmur. No gallops. No rubs. ABDOMEN: Globular, soft, and nontender. No masses. EXTREMITIES: Positive for bilateral leg amputation. NEUROLOGICAL: The patient is confused, but can follow simple commands. Moving all extremities. LABORATORY DATA: Laboratories of February 10, 2019; white count 8.9, hemoglobin 11.5. Sodium 134, potassium 3.9, chloride 98, carbon dioxide 27, BUN 41, creatinine 3.18, glucose 125, calcium 9, phosphorus 3.0, and albumin 3.7. IMAGING DATA: Chest x-ray shows increased lung markings. ASSESSMENT AND PLAN: 1. Fever/sepsis - consider early pneumonia, on empiric IV antibiotics. 2. End-stage renal disease. The patient underwent emergent hemodialysis yesterday due to volume overload. 800 mL of fluid was removed. 3. Anemia. No indication for any Epogen placement. I will plan to do hemodialysis again tomorrow, . For the moment, agree with current management. Continue empiric IV antibiotics. Job ID: [id number]
--- NOTE | 2019-02-10 15:07 | PDOC.HOSPP ---
- Subjective Encounter Date: 02/10/19 Encounter Time: 15:04 Subjective: Mr. Mancera was seen today in follow-up of shortness of breath. He is breathing better. He denies chest pain. - Objective Vital Signs & Weight: Vital Signs (12 hours) Temp Pulse Resp Pulse Ox 02/10/19 12:59 78 21 H 96 02/10/19 11:24 99.0 F 02/10/19 08:00 97 02/10/19 07:17 97.6 F 02/10/19 06:50 77 29 H 98 02/10/19 03:40 97.5 F L 02/10/19 03:05 98.7 F Weight Weight 228 lb 9.6 oz Most Recent Monitor Data Heart Rate from ECG 78 NIBP 141/56 NIBP BP-Mean 84 Respiration from ECG 30 SpO2 99 I&O: 02/09/19 02/10/19 02/11/19 06:59 06:59 06:59 Intake Total 350 Output Total 800 150 Balance -450 -150 Result Diagrams: 02/10/19 04:56 02/10/19 04:56 Additional Labs: Accuchecks 02/10/19 10:38 POC Glucose 227 H Hospitalist ROS - Medication Medications: Active Medications Generic Name Dose Route Start Last Admin Trade Name Freq PRN Reason Stop Dose Admin Albuterol/Ipratropium 3 ml 02/10/19 01:00 02/10/19 12:59 Duoneb NEB 3 ml S8PT-ER RENA Administration Heparin Sodium (Porcine) 5,000 units 02/10/19 09:00 02/10/19 09:43 Heparin SC 5,000 units BID RENA Administration Pantoprazole Sodium 40 mg 02/10/19 09:00 02/10/19 09:44 Protonix PO 40 mg DAILY RENA Administration Sodium Chloride 10 ml 02/10/19 09:00 02/10/19 09:44 Flush - Normal Saline IVF 10 ml Q12HR RENA Administration - Exam Eye: PERRL, anicteric sclera Heart: RRR, no murmur, no gallops, no rubs, normal peripheral pulses Respiratory: rhonchi (+ bilateral rhonchi, and rales at both bases) Gastrointestinal: soft, non-tender, non-distended, normal bowel sounds Extremities: no edema (Bilateral lower extremity amputee) Hosp A/P (1) Volume overload Code(s): E87.70 - FLUID OVERLOAD, UNSPECIFIED Status: Acute (2) Acute respiratory failure Code(s): J96.00 - ACUTE RESPIRATORY FAILURE, UNSP W HYPOXIA OR HYPERCAPNIA Status: Acute (3) Bronchitis Code(s): J40 - BRONCHITIS, NOT SPECIFIED ACUTE OR CHRONIC Status: Acute (4) Amputation leg, bilat Code(s): S88.911A - COMPLETE TRAUMATIC AMPUTATION OF R LOW LEG, LEVEL UNSP, INIT ; S88.912A - COMPLETE TRAUMATIC AMPUTATION OF L LOW LEG, LEVEL UNSP, INIT Status: Chronic Qualifiers: (5) Diabetes mellitus type 2 in obese Code(s): E11.69 - TYPE 2 DIABETES MELLITUS WITH OTHER SPECIFIED COMPLICATION; E66.9 - OBESITY, UNSPECIFIED Status: Chronic (6) ESRD (end stage renal disease) on dialysis Code(s): N18.6 - END STAGE RENAL DISEASE; Z99.2 - DEPENDENCE ON RENAL DIALYSIS Status: Chronic (7) HTN (hypertension) Code(s): I10 - ESSENTIAL (PRIMARY) HYPERTENSION Status: Chronic Qualifiers: - Plan * Volume overload- dialysis per Nephrology * Acute respiratory failure- continue Rocephin and Vancomycin ( probable bronchitis vs. early pneumonia * ESRD- stavle * DM- blood glucose is stable * HTN- blood pressure is stable
--- NOTE | 2019-02-10 15:25 | CON ---
DATE OF CONSULTATION: 02/10/2019 SERVICE: Pulmonary Medicine. REASON FOR CONSULTATION: Respiratory failure. HISTORY OF PRESENT ILLNESS: The patient is an 79-year-old white male with past medical history significant for chronic kidney disease, peripheral vascular disease, and diabetes, who has a tendency of developing increasing fluid collection. He was in his usual state of health until a couple of months ago. He started having increasing shortness of breath, orthopnea, and paroxysmal nocturnal dyspnea. He denies having any significant fevers or chills. He is not having any night sweats or rigors. He is coughing and bringing up mostly clear phlegm with tinge of yellow to it. This is new for him over the past week. Ultimately, because of breathing difficulties and dyspnea on exertion, he opted to present to the emergency department. He was discovered to be significantly volume overloaded. The fluid was removed, and his breathing is actually improved overnight to some extent. He is returning to his usual state of health. He did require little noninvasive ventilation briefly, but was briskly taken off that. PAST MEDICAL HISTORY: 1. End-stage renal disease, on hemodialysis. 2. Coronary artery disease. 3. Peripheral vascular disease. 4. Chronic systolic and diastolic heart failure. 5. Type 2 diabetes mellitus. 6. Dyslipidemia. 7. Hypertension. 8. Dementia. 9. Phantom limb pain. PAST SURGICAL HISTORY: 1. AV fistula placement. 2. Coronary artery bypass graft x4. 3. Left above-knee amputation. 4. Right below-knee amputation. 5. Herniorrhaphy. SOCIAL HISTORY: Negative for alcohol, tobacco, or illicit drug use currently. He does have a remote history of smoking. He is currently . He has no exposure to chemicals, dust, asbestos, or tuberculosis currently. He previously worked in the [employer] within a [employer] system. FAMILY HISTORY: Noncontributory. ALLERGIES: ACETAMINOPHEN, HYDROCODONE, AND AMBIEN. MEDICATIONS: List of his inpatient medications was reviewed. No specific updates were made. REVIEW OF SYSTEMS: General; head, ears, eyes, nose, throat; cardiovascular; respiratory; GI; ; musculoskeletal; neurologic; and skin are negative except as mentioned in the HPI. PHYSICAL EXAMINATION: VITAL SIGNS: Afebrile currently. He had a T-max of 100.2 and apparently had a 102 degree temperature when he was out of the hospital. Pulse 78, blood pressure 141/56, respirations 21, and saturation 96% on 1.5 L nasal cannula. GENERAL: The patient is awake and alert, in no apparent distress. LUNGS: There is a poor air entry. No prolonged expiratory phase with both wheezing and crackles present. No rhonchi appreciated. There is not really moving much air. HEART: Normal rate and regular. ABDOMEN: Soft, nontender, and nondistended. Bowel sounds are positive. MUSCULOSKELETAL: No cyanosis or clubbing. There is no pitting in the bilateral stumps. NEUROLOGIC: Grossly nonfocal. LABORATORY DATA: WBC 8.9, hemoglobin 11.5, platelets 133,000. Creatinine 3.18. BUN 41 and downtrending. Basic metabolic profile is otherwise unremarkable. Troponin is 0.034, liver function studies are unremarkable. Phosphorus falls within the normal limits. Blood cultures x2 are negative. IMAGING: Chest x-ray demonstrates interstitial edema present throughout bilateral lung merchant, cardiomegaly. There is a possible infiltrate versus a pericardial fat pad present at the left base. Pulmonary vascular congestion is noted. Cardiomegaly is obvious. The carinal angle is quite enlarged, suggestive of left atrial dilation. ASSESSMENT: 1. Acute on chronic hypoxic respiratory failure. 2. Acute on chronic diastolic heart failure. 3. Severe sepsis, resolving. DISCUSSION AND PLAN: Panculture is currently pending. Empiric antibiotics have been initiated. The patient at this point is breathing much better. He has not required BiPAP over 12 hours and he is talking in full sentences without difficulties. As such, we can transition him out of the IMCU to the telemetry unit. Pulmonary/Critical Care will continue to follow along. 70 minutes have been devoted to this patient in various activities. I personally reviewed all imaging studies and laboratory data noted within this document. For fifty percent of this time, I was interacting with the patient at the bedside or coordinating care with the care team. For the remainder of the time I was immediately available to the patient in the hospital unit. Job ID: [id number] [facility]
[2019-02-10] MEDS: cefTRIAXone\\ROCEPHIN 1 GM in Sodium Chloride 0.9% 100 ML IVPB SCH (20:52)
[2019-02-11 08:34] LABS: Vancomycin, Random 7.3 ug/mL (See Comment)
--- NOTE | 2019-02-11 09:57 | PRG ---
DATE OF SERVICE: 02/11/2019 SERVICE: Renal Medicine. SUBJECTIVE: Mr. Mancera is an 79-year-old white male with ESRD and was admitted for sepsis and hypotension. He also received emergent hemodialysis due to volume overload. His shortness of breath is much improved. He denies any new complaints today. He is less confused today. OBJECTIVE: VITAL SIGNS: Blood pressure is 124/75, heart rate 69, respiratory rate 22, pulse ox 97%. GENERAL: He is noted to be awake, alert, comfortable, obese, not in distress. SKIN: Adequate turgor. HEENT: He has pinkish conjunctivae. Anicteric sclerae. NECK: No neck mass. No carotid bruits. No JVD. CHEST: No deformities. LUNGS: Decreased breath sounds. HEART: Normal sinus rhythm. No murmur. No gallops. No rubs. ABDOMEN: Globular, soft, and nontender. No masses. EXTREMITIES: Status post bilateral leg amputation. MEDICATIONS: Medications of February 11, 2019, were reviewed. LABORATORY DATA: Laboratories of February 10, 2019: White count 8.9, hemoglobin 11.5. Sodium 134, potassium 3.9, chloride 98, carbon dioxide 27, BUN 41, creatinine 3.18, glucose 125, phosphorus 3.0, albumin 3.7. ASSESSMENT AND PLAN: 1. Fever/? Sepsis - on empiric IV antibiotics. Clinically, much improved. 2. Confusion - much improved. Superimposed metabolic encephalopathy. 3. End-stage renal disease, stable. We will continue current hemodialysis regimen. We will do a 2-hour hemodialysis with this patient today. We will then resume his regular Friday, Friday, and Friday, starting tomorrow. Fluid removal will only be done as tolerated by the patient. Blood pressure is still running on the low end of normal. Overall, agree with current management. Recheck CBC and basic metabolic panel in a.m. Job ID: [id number]
[2019-02-11] MEDS: Heparin 5,000 UNITS/ML VIAL SC SCH ×2 (10:18→19:51)
--- NOTE | 2019-02-11 11:56 | PQF ---
DATE: 02-11-19 ATTN: DR. MARION SMITH Please exercise your independent, professional judgment in responding to the clarification form. Clinical indicators are provided on the bottom of this form for your review Please check appropriate box(s): HEART FAILURE: A. TYPE: [ ] Systolic / HFrEF [ X] Diastolic / HFpEF [ ] Combined Systolic / Diastolic B. ACUITY [ ] Acute [ ] Acute on Chronic [ ] Chronic [ ] Other diagnosis [ ] Unable to determine In addition, please specify: Present on Admission (POA): [ X ] Yes [ ] No [ ] Unable to determine For continuity of documentation, please document condition throughout progress notes and discharge summary. Thank You. CLINICAL INDICATORS - SIGNS / SYMPTOMS / LABS: ER NOTE 02-09-19: SOB, SECONDARY TO SUSPECTED VOLUME OVERLOAD, PT APPARENTLY MISSED 2 HD TREATMENTS, HX OF CHF, FLUID OVERLOAD LIKELY D/T COMBINED EFFECT OF MISSED HD AND CHF ER DX 02-09-19: VOLUME OVERLOAD, RESP DISTRESS H&P 02-09-19: ACUTE ON CHRONIC SYSTOLIC/DIASTOLIC CHF D/T VOLUME OVERLOAD PN DR. SMITH 02-10-19: ACUTE VOLUME OVERLOAD CONSULT NOTE DR. RODRIGEZ 02-10-19: ACUTE ON CHRONIC DIASTOLIC HEART FAILURE RISKS: H&P: 02-09-19: HX OF ESRD, CAD, CHF SYSTOLIC, DM 2, DYSLIPIDEMIA, PVD, DEMENTIA, CABG TREATMENTS: ER NOTE 02-09-19: IMCU MONITORING PULMONARY CONSULT 02-10-19: HE DID REQUIRE LITTLE NONINVASIVE VENTILATION BRIEFLY, BUT WAS TAKEN OFF THAT. H&P 02-09-19: HOME MED: COREG PO (This form is maintained as a part of the permanent medical record) 2014 [employer]. All Rights Reserved LUL [email or web address] Office: [phone] [facility]
--- NOTE | 2019-02-11 12:08 | PQF ---
DATE: 02-11-19 ATTN: DR. MARION SMITH Please exercise your independent, professional judgment in responding to the clarification form. Clinical indicators are provided on the bottom of this form for your review Please check appropriate box(s) to clarify if the following diagnosis has been ruled in or ruled out: SEPSIS [ X ] Ruled in diagnosis [ X ] Continue to treat [ ] Resolved [ ] Ruled out diagnosis [ ] Other diagnosis [ ] Unable to determine In addition, please specify: Present on Admission (POA): [ X] Yes [ ] No [ ] Unable to determine For continuity of documentation, please document condition throughout progress notes and discharge summary. Thank You. CLINICAL INDICATORS - SIGNS / SYMPTOMS / LABS H&P 02-09-19: SEPSIS. THE PATIENT IS FEBRILE W/ TEMP 102. SOURCE OF INFECTION UNCLEAR, POSSIBLY EARLY PNEUMONIA, CANNOT BE ENTIRELY EXCLUDED. CONSULT NOTE DR. RODRIGEZ 02-10-19: SEVERE SEPSIS RESOLVING CONSULT NOTE DR. MERINO 02-11-19: ADMITTED FOR SEPSIS AND HYPOTENSION, ASSESSMENT /PLAN: FEVER?/SEPSIS TEMP: ER: 102.8, 02-09-19: 100.2, 99.0 RR: 02-09-19: 32, 22, 29, 21, 25 RISK FACTORS: H&P 02-09-19: SEPSIS. THE PATIENT IS FEBRILE W/ TEMP 102. SOURCE OF INFECTION UNCLEAR, POSSIBLY EARLY PNEUMONIA, CANNOT BE ENTIRELY EXCLUDED. TREATMENTS ER NOTE 02-09-19: VANCOMYCIN IV, CEFTRIAXONE IV (This form is maintained as a part of the permanent medical record) 2014 [employer]. All Rights Reserved LUL [email or web address] Office: [phone] [facility]
--- NOTE | 2019-02-11 15:20 | PDOC.HOSPP ---
- Subjective Encounter Date: 02/11/19 Encounter Time: 10:15 Subjective: Mr. Mancera was seen today in follow- up of acute respiratory failure/ He is breathing better today. - Objective Vital Signs & Weight: Vital Signs (12 hours) Temp Pulse Resp Pulse Ox 02/11/19 13:49 79 21 H 94 L 02/11/19 12:31 98.2 F 02/11/19 08:56 97.6 F 02/11/19 07:44 98 02/11/19 07:12 69 22 H 97 02/11/19 03:43 98.3 F Weight Weight 228 lb 9.6 oz Most Recent Monitor Data Heart Rate from ECG 78 NIBP 165/70 NIBP BP-Mean 101 Respiration from ECG 29 SpO2 97 I&O: 02/10/19 02/11/19 02/12/19 06:59 06:59 06:59 Intake Total 350 940 Output Total 800 350 Balance -450 590 Result Diagrams: 02/10/19 04:56 02/10/19 04:56 Additional Labs: Accuchecks 02/11/19 02/11/19 02/10/19 12:03 05:37 20:28 POC Glucose 156 H 178 H 180 H 02/10/19 02/10/19 16:37 06:03 POC Glucose 138 H 133 H Hospitalist ROS - Medication Medications: Active Medications Generic Name Dose Route Start Last Admin Trade Name Freq PRN Reason Stop Dose Admin Albuterol/Ipratropium 3 ml 02/10/19 01:00 02/11/19 13:49 Duoneb NEB 3 ml [id number] RENA Administration Heparin Sodium (Porcine) 5,000 units 02/10/19 09:00 02/11/19 10:18 Heparin SC 5,000 units BID RENA Administration Ceftriaxone Sodium 1 gm/ 100 mls @ 200 mls/hr 02/10/19 21:00 02/10/19 20:52 Sodium Chloride IVPB 100 mls Q24HR@2100 RENA Administration Pantoprazole Sodium 40 mg 02/10/19 09:00 02/11/19 10:17 Protonix PO 40 mg DAILY RENA Administration Sodium Chloride 10 ml 02/10/19 09:00 02/11/19 10:18 Flush - Normal Saline IVF 10 ml Q12HR RENA Administration - Exam Eye: PERRL, anicteric sclera Heart: RRR, no murmur, no gallops, no rubs, normal peripheral pulses Respiratory: no wheezes, no rales, no ronchi, rales Gastrointestinal: soft, non-tender, non-distended, normal bowel sounds, no palpable masses, no hepatomegaly, no splenomegaly, no bruit Extremities: no cyanosis Hosp A/P (1) Volume overload Code(s): E87.70 - FLUID OVERLOAD, UNSPECIFIED Status: Acute (2) Acute respiratory failure Code(s): J96.00 - ACUTE RESPIRATORY FAILURE, UNSP W HYPOXIA OR HYPERCAPNIA Status: Acute (3) Bronchitis Code(s): J40 - BRONCHITIS, NOT SPECIFIED ACUTE OR CHRONIC Status: Acute (4) Amputation leg, bilat Code(s): S88.911A - COMPLETE TRAUMATIC AMPUTATION OF R LOW LEG, LEVEL UNSP, INIT ; S88.912A - COMPLETE TRAUMATIC AMPUTATION OF L LOW LEG, LEVEL UNSP, INIT Status: Chronic Qualifiers: (5) Diabetes mellitus type 2 in obese Code(s): E11.69 - TYPE 2 DIABETES MELLITUS WITH OTHER SPECIFIED COMPLICATION; E66.9 - OBESITY, UNSPECIFIED Status: Chronic (6) ESRD (end stage renal disease) on dialysis Code(s): N18.6 - END STAGE RENAL DISEASE; Z99.2 - DEPENDENCE ON RENAL DIALYSIS Status: Chronic (7) HTN (hypertension) Code(s): I10 - ESSENTIAL (PRIMARY) HYPERTENSION Status: Chronic Qualifiers: - Plan * Volume overload- dialysis per Nephrology * Acute respiratory failure- improved after dialysis * Bronchitis and early pneumonia-continue Rocephin and Vancomycin * ESRD- stable * DM- blood glucose is stable * HTN- blood pressure is stable
--- NOTE | 2019-02-11 17:16 | PRG ---
DATE OF SERVICE: 02/11/2019 SERVICE: Pulmonary Medicine. INTERVAL HISTORY: The patient is doing fantastic from a breathing standpoint. He has no complaints of nausea, vomiting, or chest discomfort. He is breathing comfortably. He is undergoing dialysis today. PHYSICAL EXAMINATION: VITAL SIGNS: Afebrile, pulse 78, blood pressure 165/70, respirations 29, and saturation 97%, currently on 1 L nasal cannula. GENERAL: The patient is awake and alert, in no apparent distress. LUNGS: Very good air entry. There is still some dependent crackles, but much improved. There is a slightly prolonged expiratory phase, but no wheezing any longer. HEART: Normal rate. Regular. ABDOMEN: Soft, nontender, and nondistended. Bowel sounds are positive. MUSCULOSKELETAL: No cyanosis or clubbing. There is no pitting edema. His right and left legs are both surgically absent. LABORATORY DATA: Blood sugar ranges from 156 to 227. Blood cultures x2 are unremarkable to-date. ASSESSMENT: 1. Acute on chronic hypoxic respiratory failure, returned to baseline. 2. Acute on chronic diastolic heart failure, close to euvolemia. 3. Severe sepsis, resolved. DISCUSSION AND PLAN: The patient is doing fine from respiratory standpoint. He is essentially back to baseline. As such, he can be transitioned out of the IMCU to the telemetry unit. At this point, he has no further requirements for inpatient Pulmonary/Critical Care opinion, so when he leaves the IMCU, I will sign off. Please call with additional questions or concerns. Job ID: [id number]
[2019-02-11] MEDS: cefTRIAXone\\ROCEPHIN 1 GM in Sodium Chloride 0.9% 100 ML IVPB SCH (19:50)
[2019-02-11] MEDS: Lorazepam 2 MG/ML VIAL SLOW IVP PRN (19:51)
[2019-02-12 07:03] LABS: #Eosinphils 0.3 thou/uL (0.0-0.7); #Lymphocytes 2.1 thou/uL (1.20-3.40); #Monocytes 0.8 thou/uL (0.11-0.59); #Neutrophils 2.7 thou/uL (1.40-6.50); %Basophils 0.3 % (0.0-1.0); %Eosinophils 5.1 % (0.0-10.0); %Lymphocytes 35.4 % (21.0-51.0); %Neutrophils 45.2 % (42.0-75.0); Hemoglobin 10.5 g/dL (14.0-18.0); Mean Corpuscular HGB CONC 34.6 g/dL (32.0-36.0); Mean Corpuscular Hemoglobin 34.1 pg (27.0-31.0); Mean Corpuscular Volume 98.5 fL (78.0-98.0); Mean Platelet Volume 7.9 fL (7.4-10.4); Platelet Count 148 thou/uL (130-400); RBC Distribution Width 15.2 % (11.5-14.5); Red Blood Cell (RBC) Count 3.08 mill/uL (4.70-6.10); White Blood Cell (WBC) Count 5.9 thou/uL (4.8-10.8)
[2019-02-12 07:23] LABS: Anion Gap 16 mmol/L (10-20); BUN (Urea Nitrogen) 47 mg/dL (8.4-25.7); Calc. Creatinine Clearance 22 mL/min (70-130); Calcium 8.7 mg/dL (7.8-10.44); Carbon Dioxide 24 mmol/L (23-31); Chloride 96 mmol/L (98-107); Estimated GFR-MDRD 15; Glucose 161 mg/dL (83-110); Potassium 4.2 mmol/L (3.5-5.1); Sodium 132 mmol/L (136-145)
[2019-02-12] MEDS ORDERED: Polyethylene Glycol 3350 17 GM Packet PO PRN ×2 (08:17→08:30)
[2019-02-12] MEDS ORDERED: Gabapentin 300 MG CAP PO PRN (08:17)
[2019-02-12] MEDS ORDERED: ACETAMINOPHEN PO PRN (08:17)
[2019-02-12] MEDS ORDERED: Acetaminophen 325 MG TAB PO PRN (08:33)
--- NOTE | 2019-02-12 09:47 | PRG ---
DATE OF SERVICE: 02/12/2019 SUBJECTIVE: The patient is seen and examined at the bedside. He seems to be improving daily. He was dialyzed yesterday. His appetite is fair. OBJECTIVE: VITAL SIGNS: Blood pressure is 117/54, pulse is 79, respiratory rate is 18, O2 saturation is 96%. HEENT: Head is atraumatic and normocephalic. Sclerae are nonicteric. Oral mucosa is moist. NECK: Supple. LUNGS: Breath sounds are diminished at both bases with bilateral crackles at both bases. HEART: S1 and S2, somewhat distant. No S3. No S4. ABDOMEN: Soft, obese, nontender, nondistended. EXTREMITIES: Left above the knee amputee status and right lower extremity is [id number] amputee status. NEUROLOGIC: He is not sure about the time and date. He is able to move his all 4 extremities. There are no any motor deficits. LABORATORY DATA: Labs are none. Microbiology, two blood cultures are negative so far. IMPRESSION: 1. Severe sepsis since his blood cultures are negative. We will stop his vancomycin. We will continue Rocephin. 2. Volume overload, status post dialysis for missed dialysis status and fluid overload. 3. Acute respiratory failure. 4. Bronchitis. 5. Bilateral leg amputations, left side [id number] and the right side [id number]. 6. Diabetes mellitus, chronic. 7. End-stage renal disease, on hemodialysis. 8. Hypertension. PLAN: Plan is to stop vancomycin. Continue Rocephin. Continue dialysis per Nephrology recommendation. Transfer to telemetry, and continue the rest of the regimen. Job ID: [id number]
--- NOTE | 2019-02-12 09:51 | PRG ---
DATE OF SERVICE: 02/12/2019 SERVICE: Renal Medicine. SUBJECTIVE: Mr. Mancera is an 79-year-old white male with ESRD and followed by the Renal Service for his maintenance hemodialysis. The patient was initially admitted for a ? of sepsis/fever. He was also noted to be in CHF. He has been undergoing daily dialysis due to the congestive heart failure. I have scheduled him again for his regular hemodialysis today. Fluid removal will only be done depending on the blood pressure and see if he is tolerating it. No new complaints today. He is feeling better. OBJECTIVE: VITAL SIGNS: Blood pressure is noted at 117/54 with heart rate of 77, respiratory rate 27, and temperature 97.6. GENERAL: Noted to be awake, alert, comfortable, not in distress. SKIN: Adequate turgor. HEENT: Pinkish conjunctivae. Anicteric sclerae. NECK: No neck mass. No carotid bruits. No JVD. CHEST: No deformities. LUNGS: Decreased breath sounds. HEART: Normal sinus rhythm. No murmur. No gallops. No rubs. ABDOMEN: Globular, soft, and nontender. No masses. EXTREMITIES: Bilateral leg amputation. MEDICATIONS: Medications of February 12, 2019, was reviewed. LABORATORY DATA: Blood culture of February 09, 2019, no growth today. Laboratories of February 12, 2019; white count 5.9, hemoglobin 10.5. Sodium 132, potassium 4.2, chloride 96, carbon dioxide 24, BUN 47, creatinine 3.84, glucose 161, and calcium 8.7. ASSESSMENT AND PLAN: 1. End-stage renal disease, stable. We will continue current hemodialysis regimen on Friday, Friday, and Friday. We will max out fluid removal only as tolerated by the patient. 2. Fever, much improved, on empiric IV antibiotics. 3. Congestive heart failure, clinically much improved. The patient is being followed by Pulmonary Medicine. Overall, agree with current management. Job ID: [id number]
[2019-02-12] MEDS: Aspirin 81 mg Enteric Coated Tablet PO SCH (10:30)
[2019-02-12] MEDS: Carvedilol 3.125 MG TAB PO SCH ×2 (10:30→21:35)
[2019-02-12] MEDS: Insulin Glargine 36 UNITS in Pre-Filled Syringe 1 EACH SC SCH (10:30)
[2019-02-12] MEDS: Heparin 5,000 UNITS/ML VIAL SC SCH ×2 (10:30→21:35)
--- NOTE | 2019-02-12 14:40 | PRG ---
DATE OF SERVICE: 02/12/2019 SERVICE: Pulmonary Medicine. INTERVAL HISTORY: The patient is doing absolutely fine from respiratory standpoint. He has no complaints of chest pain, fevers, chills, nausea, or vomiting. He tells me that he is essentially back to his usual state of health. He has no complaints. PHYSICAL EXAMINATION: VITAL SIGNS: Afebrile, pulse 66, blood pressure 124/71, respirations 20, and saturation 97% on 2 L nasal cannula. GENERAL: The patient is awake and alert, in no apparent distress. LUNGS: Very good air entry. I do not appreciate a prolonged expiratory phase or wheezing today. HEART: Normal rate and regular. ABDOMEN: Soft, nontender, nondistended. Bowel sounds are positive. MUSCULOSKELETAL: No cyanosis or clubbing. No pitting edema of the stumps or hips. : No Rueda. NEUROLOGIC: Grossly nonfocal. LABORATORY DATA: WBC 5.9, hemoglobin 10.5, and platelets 148,000. BUN 47, creatinine 3.84, sodium 132. Procalcitonin is unremarkable. Blood cultures x2 are negative. ASSESSMENT: 1. Acute on chronic hypoxic respiratory failure, returned to baseline. 2. Acute on chronic diastolic heart failure, close to euvolemia. 3. Severe sepsis, resolved. 4. End-stage renal disease. DISCUSSION AND PLAN: At this point, I really do not see any source that requires additional antibiotics. It would be reasonable to discontinue them altogether, or empirically give him a 7-day course of something. I do think that a third generation cephalosporin would be perfectly reasonable. At this point, he has no further requirements for inpatient Pulmonary or Critical Care opinion. As such, when he arrives on the floor, I will sign off. Please call with additional questions or concerns through time. Job ID: [id number]
[2019-02-12] MEDS: Lorazepam 2 MG/ML VIAL SLOW IVP PRN ×2 (15:21→21:36)
[2019-02-12] MEDS ORDERED: Non-Formulary Item 1 EACH (Atorvastatin Calcium [Atorvastatin Calcium] 80 MG) PO SCH (21:00)
[2019-02-12] MEDS: Atorvastatin Calcium 40 MG TAB PO SCH (21:35)
[2019-02-12] MEDS: cefTRIAXone\\ROCEPHIN 1 GM in Sodium Chloride 0.9% 100 ML IVPB SCH (21:35)
[2019-02-12] MEDS: Insulin Glargine 10 UNITS in Pre-Filled Syringe 1 EACH SC SCH (21:36)
[2019-02-13 08:00] LABS: #Eosinphils 0.4 thou/uL (0.0-0.7); #Lymphocytes 1.8 thou/uL (1.20-3.40); #Monocytes 0.8 thou/uL (0.11-0.59); %Basophils 0.6 % (0.0-1.0); %Eosinophils 6.1 % (0.0-10.0); %Lymphocytes 25.9 % (21.0-51.0); %Neutrophils 56.4 % (42.0-75.0); Hemoglobin 10.4 g/dL (14.0-18.0); Mean Corpuscular HGB CONC 34.8 g/dL (32.0-36.0); Mean Corpuscular Volume 97.7 fL (78.0-98.0); Mean Platelet Volume 7.8 fL (7.4-10.4); Platelet Count 147 thou/uL (130-400); RBC Distribution Width 14.9 % (11.5-14.5); Red Blood Cell (RBC) Count 3.05 mill/uL (4.70-6.10)
[2019-02-13 08:18] LABS: Anion Gap 16 mmol/L (10-20); BUN (Urea Nitrogen) 36 mg/dL (8.4-25.7); Calc. Creatinine Clearance 26 mL/min (70-130); Carbon Dioxide 27 mmol/L (23-31); Chloride 99 mmol/L (98-107); Estimated GFR-MDRD 18; Glucose 102 mg/dL (83-110); Sodium 138 mmol/L (136-145)
--- NOTE | 2019-02-13 08:30 | RAD ---
Exam: Chest one view: HISTORY: Shortness of breath follow-up COMPARISON: 02/09/2019 FINDINGS: Postop midline sternotomy with some laterally displaced sternal wires. No confluent pneumonia or over t edema. Mild vascular congestion. Slight blunting the left costophrenic angle possibly a small pleural effusion. IMPRESSION: Overall stable chest.
[2019-02-13] MEDS: Aspirin 81 mg Enteric Coated Tablet PO SCH (09:34)
[2019-02-13] MEDS: Carvedilol 3.125 MG TAB PO SCH ×2 (09:34→19:50)
[2019-02-13] MEDS: Lorazepam 2 MG/ML VIAL SLOW IVP PRN ×2 (09:35→20:52)
[2019-02-13] MEDS: Heparin 5,000 UNITS/ML VIAL SC SCH ×2 (09:35→19:50)
[2019-02-13] MEDS: Insulin Glargine 36 UNITS in Pre-Filled Syringe 1 EACH SC SCH (09:35)
--- NOTE | 2019-02-13 10:01 | PRG ---
DATE OF SERVICE: 02/13/2019 SERVICE: Renal Medicine. SUBJECTIVE: Mr. Mancera is an 79-year-old white male with ESRD and followed up by the Renal Service for his maintenance hemodialysis. He underwent hemodialysis yesterday without any difficulty. He also was admitted for fever and confusion. Presumptive sepsis was diagnosed with this patient. He is on empiric IV antibiotics. This morning, he has no new complaints, except he is a little bit restless. He denies any chest pain or shortness of breath. OBJECTIVE: VITAL SIGNS: Blood pressure is noted at 152/60 with heart rate of 70, respiratory rate 24, pulse ox 99% on 3 L, and temperature 97.9. GENERAL: Noted to be awake, not in overt distress. SKIN: Adequate turgor. HEENT: Pinkish conjunctivae. Anicteric sclerae. NECK: No neck mass. No carotid bruits. No JVD. CHEST: No deformities. LUNGS: Occasional wheezing, but no overt crackles. HEART: Normal sinus rhythm. No murmur. No gallops. No rubs. ABDOMEN: Globular, soft, nontender. No masses. EXTREMITIES: Status post bilateral leg amputation. MEDICATIONS: Medications of February 13, 2019, were reviewed. LABORATORY DATA: Laboratories of February 13, 2019; white count 7 and hemoglobin 10.4. Sodium 138, potassium 4, chloride 99, carbon dioxide 27, BUN 36, creatinine 3.36, glucose 102, calcium 9.0. IMAGING STUDIES: Chest x-ray, stable. ASSESSMENT AND PLAN: 1. End-stage renal disease, stable. We will continue current hemodialysis regimen. Fluid removal only as tolerated by the patient. No indication for an acute dialysis today. 2. Anemia. Continuing weekly Epogen. 3. Status post sepsis, on IV antibiotics. Clinically improving. Job ID: [id number]
--- NOTE | 2019-02-13 11:18 | PRG ---
DATE OF SERVICE: 02/13/2019 SUBJECTIVE: The patient is seen and examined at bedside. Apparently, he was quite agitated yesterday and last night. He was giving Ativan IV push and this morning he has some difficulty of breathing, especially expiratory phase is prolonged. OBJECTIVE: VITAL SIGNS: Blood pressure is 152/60, pulse is 70, respiratory rate is 24, O2 saturation is 98% on 4 L by nasal cannula. HEENT: His pupils are responding to light properly. Sclerae are nonicteric. Oral mucosa is moist. NECK: Supple. LUNGS: Expiratory wheezing present and prolonged expiratory phase present. HEART: S1 and S2 normal. No S3. No S4. ABDOMEN: Soft, obese, nontender. EXTREMITIES: 1+ peripheral edema similar bilaterally. He has left above the knee amputee status and right [id number] amputee status. NEUROLOGICAL: He follows my commands. He moves his all 4 extremities. There is no any motor deficits. LABORATORY DATA: Labs showed white count of 7.0, hemoglobin 10.4, hematocrit 29.8, platelet count is 147,000, normal electrolytes. Creatinine of 3.36, BUN of 36, glucose of 124 to 179. IMPRESSION: 1. Severe sepsis with negative blood cultures. Continue Rocephin. 2. Volume overload status post dialysis for missed dialysis status and fluid overload. 3. Acute respiratory failure. 4. Bronchitis. 5. Bilateral leg amputation left-sided above the knee and right-sided [id number] status. 6. Diabetes mellitus, chronic. 7. Renal failure worsening. We will ask hospital housekeeper to see the patient. 8. Hypertension. PLAN: Plan is to continue the Rocephin. Antipsychotics to calm him down for agitation. Risperdal 0.5 mg at bedtime. Continue on dialysis. Continue DuoNebs. Job ID: [id number]
--- NOTE | 2019-02-13 18:00 | PRG ---
DATE OF SERVICE: 02/13/2019 SUBJECTIVE: Amrik Mancera has no new complaints. He is in no distress. OBJECTIVE: VITAL SIGNS: Blood pressure 120/92, heart rate 72. GENERAL: He is in no distress. LUNGS: Clear anteriorly. HEART: Regular rhythm. ABDOMEN: Soft and nontender. NEURO confused IMPRESSION AND PLAN: Volume overload, clinically stable. PLAN: Continue the same. Job ID: [id number] MTDD
[2019-02-13] MEDS: RisperDAL Oral Solution 1 MG/ML UDCUP PO SCH (19:49)
[2019-02-13] MEDS: Atorvastatin Calcium 40 MG TAB PO SCH (19:49)
[2019-02-13] MEDS: cefTRIAXone\\ROCEPHIN 1 GM in Sodium Chloride 0.9% 100 ML IVPB SCH (19:50)
[2019-02-13] MEDS: Insulin Glargine 10 UNITS in Pre-Filled Syringe 1 EACH SC SCH (19:50)
[2019-02-14] MEDS: Dextrose 50% Abboject 50 ML SYRINGE SLOW IVP PRN (05:41)
[2019-02-14] MEDS: Carvedilol 3.125 MG TAB PO SCH ×2 (08:57→19:39)
[2019-02-14] MEDS: Aspirin 81 mg Enteric Coated Tablet PO SCH (08:57)
[2019-02-14] MEDS: Insulin Glargine 36 UNITS in Pre-Filled Syringe 1 EACH SC SCH (08:58)
[2019-02-14] MEDS: Heparin 5,000 UNITS/ML VIAL SC SCH ×2 (08:58→19:38)
[2019-02-14] MEDS ORDERED: EPOETIN ALFA-EPBX (ESRD) 4,000 UNIT/ML VIAL SC SCH (09:45)
[2019-02-14] MEDS: Lorazepam 2 MG/ML VIAL SLOW IVP PRN ×2 (10:02→19:39)
--- NOTE | 2019-02-14 10:13 | PRG ---
DATE OF SERVICE: 02/14/2019 SUBJECTIVE: Mr. Mancera is an 79-year-old white male, followed up for his ESRD and currently on maintenance hemodialysis. He was admitted for a septic picture. He is on empiric IV antibiotics. So far, blood cultures have been negative. He is quite confused today. He is being given antipsychotics to calm him down. OBJECTIVE: VITAL SIGNS: Blood pressure is 110/39, heart rate is 62, and O2 saturation 98%. GENERAL: The patient is awake, confused, obese, not in distress. SKIN: Adequate turgor. HEENT: Slightly pale conjunctivae. Anicteric sclerae. No neck mass. No carotid bruits. No JVD. CHEST: No deformities. LUNGS: Decreased breath sounds. HEART: Normal sinus rhythm. No murmur. No gallops. No rubs. ABDOMEN: Globular, soft, nontender. No masses. EXTREMITIES: Bilateral leg amputation. MEDICATIONS: Medications of February 14, 2019, reviewed. LABORATORY DATA: Laboratories of February 14, 2019, glucose 62. February 13, 2019, potassium 4, BUN 36, creatinine 3.36, hemoglobin 10.4. ASSESSMENT AND PLAN: 1. End-stage renal disease, stable. No indication for an emergent hemodialysis. I have scheduled him for Friday, Friday, and Friday dialysis. Fluid removal as tolerated. 2. Anemia. Epogen has been started. Currently on 7500 units subcu every week. 3. Sepsis-resolved, on IV antibiotics. 4. Confusion, p.r.n. Risperdal. 5. We will recheck CBC, basic metabolic in a.m. Job ID: [id number]
--- NOTE | 2019-02-14 15:49 | PRG ---
DATE OF SERVICE: 02/14/2019 SUBJECTIVE: Amrik Mancera is in no distress. OBJECTIVE: VITAL SIGNS: He is afebrile, heart rate 75, respiratory rate is 20, oximetry is high 90s on 2 L, blood pressure 110/36. LUNGS: Clear. HEART: Regular rhythm. ABDOMEN: Soft. LABORATORY DATA: No new lab today. IMPRESSION: 1. End-stage renal disease. 2. Encephalopathy, stable. 3. Admitting diagnosis for sepsis with negative cultures. 4. Continue supportive care. In my opinion, he could be transferred out of the intermediate care unit. Job ID: [id number]
--- NOTE | 2019-02-14 16:10 | PDOC.HOSPP ---
- Subjective Encounter Date: 02/14/19 Encounter Time: 16:08 Subjective: Patient awake and alert, no intelligent response, patient not responding appropriately - Objective Vital Signs & Weight: Vital Signs (12 hours) Temp Pulse Resp Pulse Ox 02/14/19 15:12 97.6 F 02/14/19 13:55 75 20 02/14/19 10:37 97.7 F 02/14/19 08:25 98 02/14/19 07:08 97.2 F L 02/14/19 07:04 100 02/14/19 06:51 63 19 100 Weight Weight 214 lb 1.6 oz Most Recent Monitor Data Heart Rate from ECG 72 NIBP 110/36 NIBP BP-Mean 60 Respiration from ECG 22 SpO2 97 I&O: 02/13/19 02/14/19 02/15/19 06:59 06:59 06:59 Intake Total 1010 1600 Output Total 1500 Balance -490 1600 Result Diagrams: 02/13/19 07:40 02/13/19 07:40 Additional Labs: Accuchecks 02/14/19 02/14/19 02/13/19 10:12 06:18 19:55 POC Glucose 211 H 62 L 126 H 02/13/19 16:16 POC Glucose 108 Hospitalist ROS - Medication Medications: Active Medications Generic Name Dose Route Start Last Admin Trade Name Freq PRN Reason Stop Dose Admin Albuterol/Ipratropium 3 ml 02/10/19 01:00 02/14/19 13:55 Duoneb NEB 3 ml [id number] RENA Administration Aspirin 81 mg 02/12/19 09:00 02/14/19 08:57 Ecotrin PO 81 mg DAILY RENA Administration Atorvastatin Calcium 80 mg 02/12/19 21:00 02/13/19 19:49 Lipitor PO 80 mg HS RENA Administration Carvedilol 3.125 mg 02/12/19 09:00 02/14/19 08:57 Coreg PO 3.125 mg BID RENA Administration Dextrose/Water 25 gm 02/09/19 23:43 02/14/19 05:41 Dextrose 50% SLOW IVP 25 gm PRN PRN Administration Hypoglycemia Epoetin Sean-epbx 7,500 unit 02/14/19 09:45 02/14/19 14:24 Retacrit SC 7,500 unit Q7D RENA Administration Heparin Sodium (Porcine) 5,000 units 02/10/19 09:00 02/14/19 08:58 Heparin SC 5,000 units BID RENA Administration Insulin Glargine 36 units/ 0.36 mls @ 0 mls/hr 02/12/19 09:00 02/14/19 08:58 Miscellaneous Medication SC 0.36 mls QAM RENA Administration Insulin Glargine 10 units/ 0.1 mls @ 0 mls/hr 02/12/19 21:00 02/13/19 19:50 Miscellaneous Medication SC 0.1 mls HS RENA Administration Ibuprofen 400 mg 02/09/19 23:43 02/14/19 11:20 Motrin PO 400 mg Q4H PRN Administration Fever > 101 Insulin Human Lispro 0 units 02/09/19 23:43 02/12/19 06:07 Humalog SC 3 unit .AGGRESSIVE SLIDING PRN Administration Aggressive Correctional Scale Insulin Human Lispro 0 units 02/09/19 23:43 02/11/19 19:52 Humalog SC 3 unit/kg .BEDTIME SLIDING SC PRN Administration Bedtime Correctional Scale Lorazepam 1 mg 02/11/19 19:20 02/14/19 10:02 Ativan SLOW IVP 1 mg Q6H PRN Administration Agitation Pantoprazole Sodium 40 mg 02/10/19 09:00 02/14/19 08:57 Protonix PO 40 mg DAILY RENA Administration Risperidone 0.5 mg 02/13/19 21:00 02/13/19 19:49 Risperdal Oral Solution PO 0.5 mg HS RENA Administration Sodium Chloride 10 ml 02/10/19 09:00 02/14/19 08:58 Flush - Normal Saline IVF 10 ml Q12HR RENA Administration - Exam General Appearance: awake alert Eye: PERRL, anicteric sclera ENT: normocephalic atraumatic, no oropharyngeal lesions, moist mucosa Neck: supple, symmetric, no JVD, no thyromegaly Heart: RRR, no murmur, no gallops, no rubs Respiratory: CTAB, no wheezes, no rales, no ronchi Gastrointestinal: soft, non-tender, non-distended, normal bowel sounds, no palpable masses, no hepatomegaly Extremities: no cyanosis, no clubbing, no edema Neurological: no weakness Psychiatric: not oriented, flat affect Hosp A/P (1) Bronchitis Code(s): J40 - BRONCHITIS, NOT SPECIFIED ACUTE OR CHRONIC Status: Acute Plan: Admitted for sepsis/ bronchitis, encephalopathy. Responded to IV abc Vanc and Cefrioxone. Blood cx negative. StopvANC Continu dialysis for ESRF Continue meds for HTN Transfer to MED FLOOR (2) Amputation leg, bilat Code(s): S88.911A - COMPLETE TRAUMATIC AMPUTATION OF R LOW LEG, LEVEL UNSP, INIT ; S88.912A - COMPLETE TRAUMATIC AMPUTATION OF L LOW LEG, LEVEL UNSP, INIT Status: Chronic Qualifiers: (3) ESRD (end stage renal disease) on dialysis Code(s): N18.6 - END STAGE RENAL DISEASE; Z99.2 - DEPENDENCE ON RENAL DIALYSIS Status: Chronic (4) HLD (hyperlipidemia) Code(s): E78.5 - HYPERLIPIDEMIA, UNSPECIFIED Status: Chronic Qualifiers: (5) HTN (hypertension) Code(s): I10 - ESSENTIAL (PRIMARY) HYPERTENSION Status: Chronic Qualifiers: - Plan continue antibiotics, DVT proph w/SCDs
[2019-02-14] MEDS: Atorvastatin Calcium 40 MG TAB PO SCH (19:38)
[2019-02-14] MEDS: RisperDAL Oral Solution 1 MG/ML UDCUP PO SCH (19:38)
[2019-02-14] MEDS: Insulin Glargine 10 UNITS in Pre-Filled Syringe 1 EACH SC SCH (19:39)
[2019-02-15 04:36] LABS: #Eosinphils 0.8 thou/uL (0.0-0.7); #Lymphocytes 1.6 thou/uL (1.20-3.40); #Monocytes 0.7 thou/uL (0.11-0.59); %Basophils 0.3 % (0.0-1.0); %Eosinophils 8.4 % (0.0-10.0); %Lymphocytes 17.1 % (21.0-51.0); %Monocytes 7.8 % (0.0-10.0); %Neutrophils 66.4 % (42.0-75.0); Hemoglobin 10.6 g/dL (14.0-18.0); Mean Corpuscular HGB CONC 35.6 g/dL (32.0-36.0); Mean Corpuscular Hemoglobin 35.1 pg (27.0-31.0); Mean Corpuscular Volume 98.6 fL (78.0-98.0); Platelet Count 140 thou/uL (130-400); RBC Distribution Width 14.9 % (11.5-14.5); Red Blood Cell (RBC) Count 3.03 mill/uL (4.70-6.10); White Blood Cell (WBC) Count 9.1 thou/uL (4.8-10.8)
[2019-02-15 04:49] LABS: Anion Gap 16 mmol/L (10-20); BUN (Urea Nitrogen) 55 mg/dL (8.4-25.7); Calc. Creatinine Clearance 17 mL/min (70-130); Calcium 9.1 mg/dL (7.8-10.44); Carbon Dioxide 27 mmol/L (23-31); Chloride 99 mmol/L (98-107); Estimated GFR-MDRD 12; Potassium 3.8 mmol/L (3.5-5.1); Sodium 138 mmol/L (136-145)
[2019-02-15 05:25] LABS: Glucose 45 mg/dL (83-110)
[2019-02-15] MEDS: Dextrose 50% Abboject 50 ML SYRINGE SLOW IVP PRN (05:36)
[2019-02-15] MEDS: Heparin 5,000 UNITS/ML VIAL SC SCH ×2 (09:27→21:25)
[2019-02-15] MEDS: Aspirin 81 mg Enteric Coated Tablet PO SCH (09:27)
[2019-02-15] MEDS: Carvedilol 3.125 MG TAB PO SCH ×2 (09:27→21:12)
[2019-02-15] MEDS: Insulin Glargine 36 UNITS in Pre-Filled Syringe 1 EACH SC SCH (09:29)
--- NOTE | 2019-02-15 11:12 | PRG ---
DATE OF SERVICE: 02/15/2019 SERVICE: Renal Medicine. SUBJECTIVE: Mr. Mancera is an 79-year-old white male with known history of ESRD, was admitted for sepsis. He was noted to be agitated yesterday. He is less agitated today. No complaints of chest pain or shortness of breath. OBJECTIVE: VITAL SIGNS: Blood pressure 150/70, heart rate 77, respiratory rate 22, pulse ox 98%. GENERAL: Noted to be sleepy, but arousable, not in distress. SKIN: Adequate turgor. HEENT: He has pinkish conjunctivae. Anicteric sclerae. NECK: No neck mass. No carotid bruits. No JVD. CHEST: No deformities. LUNGS: Clear breath sounds. No wheezing. No crackles. HEART: Normal sinus rhythm. No murmur. No gallops. No rubs. ABDOMEN: Globular, soft, nontender. No masses. EXTREMITIES: Bilateral leg amputations. MEDICATIONS: Medications of February 15, 2019, were reviewed. LABORATORY DATA: Laboratories of February 15, 2019; white count 9.1, hemoglobin 10.6. Sodium 133, potassium 3.8, chloride 99, carbon dioxide 27, BUN 55, creatinine 4.79, calcium 9.1. ASSESSMENT AND PLAN: 1. End-stage renal disease, stable. We will continue current Friday, Friday, and Friday hemodialysis. Fluid removal only as tolerated. 2. Status post sepsis, clinically much improved. 3. Anemia. Continuing weekly Epogen. We will continue Epogen at 7500 units subcu every week. 4. Agitation, much improved. 5. Agree with current management. Job ID: [id number]
[2019-02-15] MEDS: Lorazepam 2 MG/ML VIAL SLOW IVP PRN (14:02)
--- NOTE | 2019-02-15 14:36 | PRG ---
DATE OF SERVICE: 02/15/2019 SUBJECTIVE: As I was seeing him this afternoon, he was undergoing dialysis. He looked like he was struggling to breathe. I was told that he was not dialyzed all weekend. OBJECTIVE: VITAL SIGNS: Temperature 97.8, pulse 95, O2 saturation 95% to 100% on nasal cannula, blood pressure 148/69. GENERAL: He appears disheveled. He is having difficult time talking secondary to shortness of breath. HEENT: Remarkable for class 4 Mallampati airway. NECK: No adenopathy or JVD. LUNGS: Tachypnea with end-expiratory wheeze. CARDIAC: S1 and S2. Regular. ABDOMEN: Morbidly obese. EXTREMITIES: Edematous. LABORATORY DATA: White blood cell count 9.1, hematocrit 29.9, and platelet count 140. Sodium 138, potassium 3.8, chloride 99, CO2 of 27, BUN 55, creatinine 4.7, and glucose 133. ASSESSMENT: 1. Chronic renal failure, requiring hemodialysis. 2. Encephalopathy. 3. Probably underlying obstructive sleep apnea. PLAN: 1. We will try noninvasive ventilation and see how he does. 2. I would not discharge the patient at this time based on that. Job ID: [id number]
--- NOTE | 2019-02-15 14:40 | RAD ---
FRONTAL RADIOGRAPH CHEST: DATE: 02/15/2019. COMPARISON: 02/13/2019. HISTORY: Dyspnea. FINDINGS: There is atherosclerotic calcification of the aortic arch. Numerous midline sternotomy wires are pre sent. Cardiac silhouette appears enlarged, stable. The right lung is clear. Mild increased linear density in the left perihilar region/left infrahilar region noted, stable. IMPRESSION: Stable appearance of the chest. POS: OFF
--- NOTE | 2019-02-15 16:39 | PDOC.HOSPP ---
- Subjective Encounter Date: 02/15/19 Encounter Time: 16:38 Subjective: very sleepy - Objective Vital Signs & Weight: Vital Signs (12 hours) Temp Pulse Resp Pulse Ox 02/15/19 15:41 96.6 F L 02/15/19 14:08 72 02/15/19 13:08 76 18 02/15/19 11:09 97.8 F 02/15/19 09:09 77 22 H 02/15/19 08:09 98 02/15/19 07:37 97.1 F L Weight Weight 215 lb Most Recent Monitor Data Heart Rate from ECG 72 NIBP 148/69 NIBP BP-Mean 95 Respiration from ECG 22 SpO2 95 I&O: 02/14/19 02/15/19 02/16/19 06:59 06:59 06:59 Intake Total 1600 1310 Balance 1600 1310 Result Diagrams: 02/15/19 04:10 02/15/19 04:10 Additional Labs: Accuchecks 02/15/19 02/15/19 02/14/19 10:34 06:27 19:40 POC Glucose 133 H 91 151 H Hospitalist ROS - Medication Medications: Active Medications Generic Name Dose Route Start Last Admin Trade Name Freq PRN Reason Stop Dose Admin Albuterol/Ipratropium 3 ml 02/10/19 01:00 02/15/19 13:08 Duoneb NEB 3 ml [id number] RENA Administration Aspirin 81 mg 02/12/19 09:00 02/15/19 09:27 Ecotrin PO 81 mg DAILY RENA Administration Atorvastatin Calcium 80 mg 02/12/19 21:00 02/14/19 19:38 Lipitor PO 80 mg HS RENA Administration Carvedilol 3.125 mg 02/12/19 09:00 02/15/19 09:27 Coreg PO 3.125 mg BID RENA Administration Dextrose/Water 25 gm 02/09/19 23:43 02/15/19 05:36 Dextrose 50% SLOW IVP 25 gm PRN PRN Administration Hypoglycemia Epoetin Sean-epbx 7,500 unit 02/14/19 09:45 02/14/19 14:24 Retacrit SC 7,500 unit Q7D RENA Administration Heparin Sodium (Porcine) 5,000 units 02/10/19 09:00 02/15/19 09:27 Heparin SC 5,000 units BID RENA Administration Insulin Glargine 36 units/ 0.36 mls @ 0 mls/hr 02/12/19 09:00 02/15/19 09:29 Miscellaneous Medication SC 0.36 mls QAM RENA Administration Insulin Glargine 10 units/ 0.1 mls @ 0 mls/hr 02/12/19 21:00 02/14/19 19:39 Miscellaneous Medication SC Not Given HS RENA Ibuprofen 400 mg 02/09/19 23:43 02/14/19 11:20 Motrin PO 400 mg Q4H PRN Administration Fever > 101 Insulin Human Lispro 0 units 02/09/19 23:43 02/12/19 06:07 Humalog SC 3 unit .AGGRESSIVE SLIDING PRN Administration Aggressive Correctional Scale Insulin Human Lispro 0 units 02/09/19 23:43 02/11/19 19:52 Humalog SC 3 unit/kg .BEDTIME SLIDING SC PRN Administration Bedtime Correctional Scale Lorazepam 1 mg 02/11/19 19:20 02/15/19 14:02 Ativan SLOW IVP 1 mg Q6H PRN Administration Agitation Pantoprazole Sodium 40 mg 02/10/19 09:00 02/15/19 09:27 Protonix PO 40 mg DAILY RENA Administration Risperidone 0.5 mg 02/13/19 21:00 02/14/19 19:38 Risperdal Oral Solution PO 0.5 mg HS RENA Administration Sodium Chloride 10 ml 02/10/19 09:00 02/15/19 09:28 Flush - Normal Saline IVF 10 ml Q12HR RENA Administration Sodium Chloride 10 ml 02/09/19 23:56 02/15/19 05:36 Flush - Normal Saline IVF 10 ml PRN PRN Administration Saline Flush - Exam Eye: PERRL, anicteric sclera ENT: normocephalic atraumatic, no oropharyngeal lesions Neck: supple, symmetric, no JVD, no thyromegaly Heart: RRR, no murmur, no gallops Respiratory: rales Gastrointestinal: soft, non-tender, non-distended, normal bowel sounds, no palpable masses Extremeties - other findings: right AKA, left BKA Hosp A/P (1) Bronchitis Code(s): J40 - BRONCHITIS, NOT SPECIFIED ACUTE OR CHRONIC Status: Acute (2) Amputation leg, bilat Code(s): S88.911A - COMPLETE TRAUMATIC AMPUTATION OF R LOW LEG, LEVEL UNSP, INIT ; S88.912A - COMPLETE TRAUMATIC AMPUTATION OF L LOW LEG, LEVEL UNSP, INIT Status: Chronic Qualifiers: (3) ESRD (end stage renal disease) on dialysis Code(s): N18.6 - END STAGE RENAL DISEASE; Z99.2 - DEPENDENCE ON RENAL DIALYSIS Status: Chronic (4) HLD (hyperlipidemia) Code(s): E78.5 - HYPERLIPIDEMIA, UNSPECIFIED Status: Chronic Qualifiers: (5) HTN (hypertension) Code(s): I10 - ESSENTIAL (PRIMARY) HYPERTENSION Status: Chronic Qualifiers: - Plan CONTINUE iv abx, dialysis per schedule
[2019-02-15] MEDS: Insulin Glargine 10 UNITS in Pre-Filled Syringe 1 EACH SC SCH (21:12)
[2019-02-15] MEDS: Atorvastatin Calcium 40 MG TAB PO SCH (21:39)
[2019-02-15] MEDS: RisperDAL Oral Solution 1 MG/ML UDCUP PO SCH (21:42)
[2019-02-16] MEDS ORDERED: Sodium Chloride 0.9% 250 ML IVPB SCH (01:30)
[2019-02-16 04:49] LABS: Actual Bicarbonate (HCO3a) 28.2 mEq/L (22-28); Base Excess (BEa) 2.2 mEq/L (-2.0 to +3.0); CO2 Tension 50.4 mmHg (35.0-45.0); Carboxyhemoglobin (COHb) 0.9 gm% (0.0-3.0); Hemoglobin (Hb) 11.9 g/dL (14.0-18.0); pH, Arterial 7.37 (7.35-7.45)
[2019-02-16 04:50] LABS: Calcium, Ionized 1.16 mmol/L (1.12-1.30); Potassium - ABG Lab 4.28 mmol/L (3.70-5.30); Puncture Site R RADIAL
--- NOTE | 2019-02-16 04:54 | PDOC.EVN ---
Event Note - Event Note Event Note: pt has been with bp in the lower side, lethargic, we will restart abt's and monitor closely, IVF being given, with caution due to esrd,
[2019-02-16] MEDS ORDERED: Vancomycin HCl 750 MG in Sodium Chloride 0.9% 250 ML 250 ML IVPB SCH (05:00)
[2019-02-16] MEDS ORDERED: Vancomycin HCl 1.25 GM in Sodium Chloride 0.9% 250 ML 250 ML IVPB SCH (05:00)
[2019-02-16] MEDS ORDERED: Vancomycin HCl 500 MG in Sodium Chloride 0.9% 100 ML IVPB SCH (05:00)
[2019-02-16] MEDS ORDERED: Cefepime 1 GM in Sodium Chloride 0.9% 100 ML IVPB SCH ×2 (05:00→06:00)
[2019-02-16] MEDS ORDERED: Vancomycin Sliding Scale 1 EACH FS ONE (05:00)
[2019-02-16] MEDS ORDERED: HOLD VANCOMYCIN FOR LEVEL >20 FS SCH (05:00)
[2019-02-16] MEDS ORDERED: Vancomycin HCl 1 GM in Premix Bag 1 BAG IVPB SCH ×2 (05:00→05:15)
[2019-02-16 05:38] LABS: #Basophils 0.1 thou/uL (0.0-0.2); #Eosinphils 0.3 thou/uL (0.0-0.7); #Lymphocytes 1.7 thou/uL (1.20-3.40); #Monocytes 0.8 thou/uL (0.11-0.59); #Neutrophils 4.9 thou/uL (1.40-6.50); %Eosinophils 4.2 % (0.0-10.0); %Lymphocytes 21.3 % (21.0-51.0); %Monocytes 10.2 % (0.0-10.0); %Neutrophils 63.3 % (42.0-75.0); Hemoglobin 11.7 g/dL (14.0-18.0); Mean Corpuscular HGB CONC 33.8 g/dL (32.0-36.0); Mean Corpuscular Hemoglobin 33.9 pg (27.0-31.0); Mean Platelet Volume 7.9 fL (7.4-10.4); Platelet Count 154 thou/uL (130-400); RBC Distribution Width 15.1 % (11.5-14.5); Red Blood Cell (RBC) Count 3.46 mill/uL (4.70-6.10); White Blood Cell (WBC) Count 7.7 thou/uL (4.8-10.8)
[2019-02-16] MEDS: Piperacillin/Tazobactam 2.25 GM in Sodium Chloride 0.9% 100 ML IVPB SCH ×3 (05:46→22:46)
[2019-02-16 05:57] LABS: Anion Gap 17 mmol/L (10-20); BUN (Urea Nitrogen) 33 mg/dL (8.4-25.7); Calc. Creatinine Clearance 19 mL/min (70-130); Calcium 9.5 mg/dL (7.8-10.44); Carbon Dioxide 26 mmol/L (23-31); Chloride 100 mmol/L (98-107); Estimated GFR-MDRD 14; Glucose 103 mg/dL (83-110); Potassium 4.3 mmol/L (3.5-5.1); Sodium 139 mmol/L (136-145)
[2019-02-16 06:00] LABS: Lactic Acid 1.1 mmol/L (0.5-2.2)
--- NOTE | 2019-02-16 09:45 | PRG ---
DATE OF SERVICE: 02/16/2019 SERVICE: Renal Medicine. SUBJECTIVE: Mr. Mancera is an 79-year-old white male with ESRD followed up by the Renal Service for his maintenance hemodialysis. He is still having intermittent confusion. This morning, he is sedated, but arousable. No other complaints. OBJECTIVE: VITAL SIGNS: Blood pressure is 81/44 with a heart rate of 74, respiratory rate 16, and pulse ox 100%. GENERAL: The patient is sleepy, but arousable, not in distress. SKIN: Adequate turgor. HEENT: Pinkish conjunctivae. Anicteric sclerae. NECK: No neck mass. No carotid bruits. No JVD. CHEST: No deformities. LUNGS: Decreased breath sounds. HEART: Normal sinus rhythm. No murmurs. No gallops. No rubs. ABDOMEN: Globular, soft, and nontender. No masses. EXTREMITIES: Bilateral leg amputation. MEDICATIONS: Medication of February 16, 2019, was reviewed. LABORATORY DATA: Laboratories of February 16, 2019; white count 7.7, hemoglobin 11.7. Sodium 139, potassium 4.3, chloride 100, carbon dioxide 26, BUN 33, creatinine 4.11, glucose 103, and calcium 9.5. ASSESSMENT AND PLAN: 1. End-stage renal disease, stable. We will continue current Friday, Friday, and Friday hemodialysis. Fluid removal only as tolerated by the patient. 2. Decreased mentation - most likely related to his medications. Consider discontinuing the gabapentin completely for the moment until the confusion and decreased mentation is improved. 3. Chronic anemia - continuing weekly Epogen with the patient. 4. Status post sepsis - currently on IV antibiotics, clinically much improved. Overall, agree with current management. Job ID: [id number]
[2019-02-16] MEDS: Heparin 5,000 UNITS/ML VIAL SC SCH ×2 (10:07→20:21)
[2019-02-16] MEDS: Aspirin 81 mg Enteric Coated Tablet PO SCH (10:08)
[2019-02-16] MEDS: Insulin Glargine 36 UNITS in Pre-Filled Syringe 1 EACH SC SCH (10:09)
--- NOTE | 2019-02-16 10:23 | RAD ---
FRONTAL VIEW CHEST: INDICATIONS: Altered mental status. COMPARISON: Exam from the previous day. FINDINGS: There is interstitial and alveolar opacification of the lungs bilaterally. Patchy bibasilar densitie s are present. There is enlargement of the cardiac silhouette and pulmonary vasculature. Prominent vascular calcification is seen. Numerous extrinsic artifacts limit detail. IMPRESSION: Bilateral pulmonary parenchymal and pleural-based densities, which may be on the basis of pleural flu id and pneumonia with superimposed edema. Recommend continued imaging followup. POS: TPC
--- NOTE | 2019-02-16 15:14 | PDOC.HOSPP ---
- Subjective Encounter Date: 02/16/19 Encounter Time: 15:12 Subjective: awake alert, no complains - Objective Vital Signs & Weight: Vital Signs (12 hours) Temp Pulse Resp Pulse Ox 02/16/19 14:23 71 24 H 97 02/16/19 12:00 97.3 F L 02/16/19 08:00 97.1 F L 100 02/16/19 07:52 74 16 100 02/16/19 03:45 97.8 F Weight Weight 209 lb 11.2 oz Most Recent Monitor Data Heart Rate from ECG 72 NIBP 126/61 NIBP BP-Mean 82 Respiration from ECG 21 SpO2 96 I&O: 02/15/19 02/16/19 02/17/19 06:59 06:59 06:59 Intake Total 1310 1500 Output Total 2700 Balance 1310 -1200 Result Diagrams: 02/16/19 05:25 02/16/19 05:25 Additional Labs: Accuchecks 02/16/19 02/16/19 02/16/19 10:10 05:24 04:22 POC Glucose 86 104 102 02/16/19 02/16/19 02/15/19 02:14 01:32 20:04 POC Glucose 136 H 49 L* 74 02/15/19 02/14/19 16:51 05:37 POC Glucose 129 H 44 L* Hospitalist ROS - Medication Medications: Active Medications Generic Name Dose Route Start Last Admin Trade Name Freq PRN Reason Stop Dose Admin Albuterol/Ipratropium 3 ml 02/10/19 01:00 02/16/19 14:23 Duoneb NEB 3 ml [id number] RENA Administration Aspirin 81 mg 02/12/19 09:00 02/16/19 10:08 Ecotrin PO Not Given DAILY RENA Atorvastatin Calcium 80 mg 02/12/19 21:00 02/15/19 21:39 Lipitor PO Not Given HS RENA Dextrose/Water 25 gm 02/09/19 23:43 02/15/19 05:36 Dextrose 50% SLOW IVP 25 gm PRN PRN Administration Hypoglycemia Epoetin Sean-epbx 7,500 unit 02/14/19 09:45 02/14/19 14:24 Retacrit SC 7,500 unit Q7D RENA Administration Glucagon 1 mg 02/09/19 23:43 02/16/19 01:45 Glucagon IM 1 mg PRN PRN Administration Hypoglycemia Heparin Sodium (Porcine) 5,000 units 02/10/19 09:00 02/16/19 10:07 Heparin SC 5,000 units BID RENA Administration Insulin Glargine 36 units/ 0.36 mls @ 0 mls/hr 02/12/19 09:00 02/16/19 10:09 Miscellaneous Medication SC Not Given QAM RENA Insulin Glargine 10 units/ 0.1 mls @ 0 mls/hr 02/12/19 21:00 02/15/19 21:12 Miscellaneous Medication SC Not Given HS RENA Piperacillin Sod/Tazobactam 100 mls @ 200 mls/hr 02/16/19 06:00 02/16/19 14: 17 Sod 2.25 gm/ Sodium Chloride IVPB 100 mls Q8HR RENA Administration Ibuprofen 400 mg 02/09/19 23:43 02/14/19 11:20 Motrin PO 400 mg Q4H PRN Administration Fever > 101 Insulin Human Lispro 0 units 02/09/19 23:43 02/12/19 06:07 Humalog SC 3 unit .AGGRESSIVE SLIDING PRN Administration Aggressive Correctional Scale Insulin Human Lispro 0 units 02/09/19 23:43 02/11/19 19:52 Humalog SC 3 unit/kg .BEDTIME SLIDING SC PRN Administration Bedtime Correctional Scale Lorazepam 1 mg 02/11/19 19:20 02/15/19 14:02 Ativan SLOW IVP 1 mg Q6H PRN Administration Agitation Pantoprazole Sodium 40 mg 02/10/19 09:00 02/16/19 10:09 Protonix PO Not Given DAILY RENA Risperidone 0.5 mg 02/13/19 21:00 02/15/19 21:42 Risperdal Oral Solution PO Not Given HS RENA Sodium Chloride 10 ml 02/10/19 09:00 02/16/19 10:10 Flush - Normal Saline IVF 10 ml Q12HR RENA Administration Sodium Chloride 10 ml 02/09/19 23:56 02/15/19 05:36 Flush - Normal Saline IVF 10 ml PRN PRN Administration Saline Flush - Exam Eye: PERRL, anicteric sclera ENT: normocephalic atraumatic, no oropharyngeal lesions Neck: supple, symmetric, no JVD Heart: RRR, no murmur, no gallops, no rubs Respiratory: no wheezes, rales Gastrointestinal: soft, non-tender, non-distended, normal bowel sounds Extremeties - other findings: Right AKA, left BKA Neurological: CN's grossly intact Musculoskeletal: normal tone, normal strength Psychiatric: normal affect, normal behavior, A&O x 3 Hosp A/P (1) Bronchitis Code(s): J40 - BRONCHITIS, NOT SPECIFIED ACUTE OR CHRONIC Status: Acute (2) Amputation leg, bilat Code(s): S88.911A - COMPLETE TRAUMATIC AMPUTATION OF R LOW LEG, LEVEL UNSP, INIT ; S88.912A - COMPLETE TRAUMATIC AMPUTATION OF L LOW LEG, LEVEL UNSP, INIT Status: Chronic Qualifiers: (3) ESRD (end stage renal disease) on dialysis Code(s): N18.6 - END STAGE RENAL DISEASE; Z99.2 - DEPENDENCE ON RENAL DIALYSIS Status: Chronic (4) HLD (hyperlipidemia) Code(s): E78.5 - HYPERLIPIDEMIA, UNSPECIFIED Status: Chronic Qualifiers: (5) HTN (hypertension) Code(s): I10 - ESSENTIAL (PRIMARY) HYPERTENSION Status: Chronic Qualifiers: - Plan ESRD patient admitted for Bronchtis, acute on chronic resp failure: --Patient is on Oxyge at home --Continue Abx, nebs, NC oxygen ESRD: --Continue dialysis per schedule Hypotension: --Hold home anti Hypertensive --Required 500ml of fluid resuscitation on 02/16, since then BP is OK --Trend BP and restart BP meds once systolics cross 140's. Possible DC back to his NH in am if doing OK.
--- NOTE | 2019-02-16 15:45 | PRG ---
DATE OF SERVICE: 02/16/2019 SERVICE: Pulmonary Medicine. INTERVAL HISTORY: Had a breathing episode yesterday prior to dialysis. As such , We were quite aggressive with fluid removal. Following, dialysis, his blood pressures were marginal and he had some confusion. He got 500 mL of saline bolus. The blood pressure perked up, and his confusion got better by this morning. He currently denies any shortness of breath, chest discomfort, nausea, or vomiting. He indicates that his breathing is at baseline. He did not have any additional overnight events or fever. PHYSICAL EXAMINATION: VITAL SIGNS: Afebrile, pulse 71, blood pressure 126/61, respirations 21, saturation 96%, currently on 2 L nasal cannula. GENERAL: The patient is awake and alert, in no apparent distress. LUNGS: Very good air entry with no prolonged expiratory phase or wheezing present. HEART: Normal rate. Regular. ABDOMEN: Soft, nontender, and nondistended. Bowel sounds are positive. MUSCULOSKELETAL: No cyanosis or clubbing. His bilateral lower extremities are surgically absent. NEUROLOGIC: Grossly nonfocal. LABORATORY DATA: WBC 7.7, hemoglobin 11.7, platelets 154,000. A pH 7.37, pCO2 of 50, pO2 of 83, corresponding to a saturation of 96% while wearing 2 L cannula. Creatinine 4.11. Basic metabolic profile is otherwise unremarkable with a negative lactate. Blood cultures x2 are unremarkable. IMAGING DATA: Chest x-ray demonstrates left lower lobe pleural-parenchymal disease. There is fine interstitial and nodular pattern, which appears to be a little worse at the bases. Sternotomy wires are noted. ASSESSMENT: 1. Onnld-wz-yzntpfg hypoxic respiratory failure, returned to baseline. 2. Chronic hypercapnic respiratory failure. 3. Sgmaw-oo-ipfjuuf diastolic heart failure, now below euvolemia. 4. End-stage renal disease. 5. Obstructive sleep apnea, suspected. DISCUSSION AND PLAN: The patient is stable for transition out of the hospital. Pulmonary will continue to follow in this location. He has completed a full course of antibiotics, and these will be interrupted. We will try to avoid getting the patient too dry moving forward as his salt and water intake are being restricted in this facility. Job ID: [id number] MTDD
[2019-02-16] MEDS: Carvedilol 3.125 MG TAB PO SCH (18:39)
[2019-02-16] MEDS: Lorazepam 2 MG/ML VIAL SLOW IVP PRN (20:14)
[2019-02-16] MEDS: Atorvastatin Calcium 40 MG TAB PO SCH (20:21)
[2019-02-16] MEDS: RisperDAL Oral Solution 1 MG/ML UDCUP PO SCH (20:22)
[2019-02-16] MEDS: Insulin Glargine 10 UNITS in Pre-Filled Syringe 1 EACH SC SCH (20:22)
[2019-02-17] MEDS: Piperacillin/Tazobactam 2.25 GM in Sodium Chloride 0.9% 100 ML IVPB SCH ×3 (05:46→21:28)
[2019-02-17 08:10] LABS: Vancomycin, Random 14.2 ug/mL (See Comment)
[2019-02-17] MEDS: Heparin 5,000 UNITS/ML VIAL SC SCH ×2 (09:45→21:08)
[2019-02-17] MEDS: Aspirin 81 mg Enteric Coated Tablet PO SCH (09:45)
[2019-02-17] MEDS: Insulin Glargine 36 UNITS in Pre-Filled Syringe 1 EACH SC SCH (10:00)
--- NOTE | 2019-02-17 10:19 | PRG ---
DATE OF SERVICE: 02/17/2019 SUBJECTIVE: Mr. Mancera is an 79-year-old white male with ESRD. He was initially admitted for sepsis. In addition, he has been quite confused in the last several days. His mentation this morning is much improved. He voices no new complaints. He denies any chest pain or shortness of breath. OBJECTIVE: VITAL SIGNS: Blood pressure is 110/56, heart rate 72, respiratory rate 24, pulse ox 94%, temperature 98. GENERAL: Awake, alert, comfortable, not in distress. SKIN: Adequate turgor. HEENT: Pinkish conjunctivae. Anicteric sclerae. NECK: No neck mass. No carotid bruits. No JVD. The patient is obese. LUNGS: Decreased breath sounds. HEART: Normal sinus rhythm. No murmur. No gallops. No rubs. ABDOMEN: Globular, soft, nontender. No masses. EXTREMITIES: Bilateral leg amputation. MEDICATIONS: Medications of February 17, 2019, reviewed. LABORATORY DATA: Laboratories of February 16, 2019; white count 7.7, hemoglobin 11.7. Sodium 139, potassium 4.3, chloride 100, carbon dioxide 26, BUN 33, creatinine 4.11, glucose 103, calcium 9.5. February 17, 2019, glucose 171. ASSESSMENT AND PLAN: 1. End-stage renal disease, stable. We will continue current Friday, Friday, and Friday hemodialysis. Fluid removal only as tolerated. In the past, we have minimized fluid removal due to the low blood pressure. 2. Sepsis, resolved, doing well. 3. Anemia, continuing weekly Epogen with the patient. 4. Overall agree with current management. Job ID: [id number]
--- NOTE | 2019-02-17 16:14 | PRG ---
DATE OF SERVICE: 02/17/2019 INTERVAL HISTORY: The patient is doing fine from respiratory standpoint. There has been no interval change to his condition. Otherwise, he remains completely afebrile without symptoms. He indicates that he feels that he is back to baseline. OBJECTIVE: VITAL SIGNS: Afebrile, pulse 81, blood pressure 118/54, respirations 21, saturation 92%, currently on room air. GENERAL: The patient is awake and alert, in no apparent distress. LUNGS: Decent air entry. No crackles or wheezing appreciated. HEART: Normal rate, regular. ABDOMEN: Soft, nontender, and nondistended. Bowel sounds are positive. MUSCULOSKELETAL: No cyanosis or clubbing. No pitting edema is present. Bilateral lower extremities are surgically absent. LABORATORY DATA: Blood sugars ranged from 86 to 204. Blood cultures negative at 5 days. ASSESSMENT: 1. Qxxpf-vu-thhxomn hypoxic respiratory failure, at baseline. 2. Chronic hypercapnic respiratory failure. 3. End-stage renal disease. 4. Txcjq-cz-spktsey diastolic heart failure. 5. Obstructive sleep apnea, suspected. DISCUSSION AND PLAN: The patient would benefit from outpatient polysomnogram. That being said, at this point, he is stable for transition out of the hospital. From Pulmonary/Critical Care will follow along in this location, but when he leaves the unit, he will have no further requirement for Pulmonary opinion, and I will sign off. Job ID: [id number]
--- NOTE | 2019-02-17 20:59 | PDOC.HOSPP ---
- Subjective Encounter Date: 02/17/19 Encounter Time: 16:45 Subjective: Confused, intermittent difficulties with hypoglycemia. Underwent HD today, not requiring Bipap. BP has been better today. Blood cultures negative at 5 days. - Objective Vital Signs & Weight: Vital Signs (12 hours) Temp Pulse Resp Pulse Ox 02/17/19 19:52 98.5 F 02/17/19 18:46 86 18 96 02/17/19 15:45 97.3 F L 02/17/19 13:56 81 20 91 L 02/17/19 11:19 97.8 F Weight Weight 215 lb Most Recent Monitor Data Heart Rate from ECG 81 NIBP 126/50 NIBP BP-Mean 75 Respiration from ECG 21 SpO2 100 I&O: 02/16/19 02/17/19 02/18/19 06:59 06:59 06:59 Intake Total 1500 1650 950 Output Total 2700 0 800 Balance -1200 1650 150 Result Diagrams: 02/16/19 05:25 02/16/19 05:25 Additional Labs: Accuchecks 02/17/19 02/17/19 02/17/19 20:14 16:40 10:43 POC Glucose 162 H 188 H 204 H 02/17/19 02/17/19 10:00 05:51 POC Glucose 180 H 171 H Hospitalist ROS - Medication Medications: Active Medications Generic Name Dose Route Start Last Admin Trade Name Freq PRN Reason Stop Dose Admin Albuterol/Ipratropium 3 ml 02/10/19 01:00 02/17/19 18:46 Duoneb NEB 3 ml [id number] RENA Administration Aspirin 81 mg 02/12/19 09:00 02/17/19 09:45 Ecotrin PO 81 mg DAILY RENA Administration Atorvastatin Calcium 80 mg 02/12/19 21:00 02/16/19 20:21 Lipitor PO 80 mg HS RENA Administration Dextrose/Water 25 gm 02/09/19 23:43 02/15/19 05:36 Dextrose 50% SLOW IVP 25 gm PRN PRN Administration Hypoglycemia Epoetin Sean-epbx 7,500 unit 02/14/19 09:45 02/14/19 14:24 Retacrit SC 7,500 unit Q7D RENA Administration Glucagon 1 mg 02/09/19 23:43 02/16/19 01:45 Glucagon IM 1 mg PRN PRN Administration Hypoglycemia Heparin Sodium (Porcine) 5,000 units 02/10/19 09:00 02/17/19 09:45 Heparin SC 5,000 units BID RENA Administration Piperacillin Sod/Tazobactam 100 mls @ 200 mls/hr 02/16/19 06:00 02/17/19 14: 35 Sod 2.25 gm/ Sodium Chloride IVPB 100 mls Q8HR RENA Administration Ibuprofen 400 mg 02/09/19 23:43 02/14/19 11:20 Motrin PO 400 mg Q4H PRN Administration Fever > 101 Insulin Human Lispro 0 units 02/09/19 23:43 02/12/19 06:07 Humalog SC 3 unit .AGGRESSIVE SLIDING PRN Administration Aggressive Correctional Scale Insulin Human Lispro 0 units 02/09/19 23:43 02/11/19 19:52 Humalog SC 3 unit/kg .BEDTIME SLIDING SC PRN Administration Bedtime Correctional Scale Lorazepam 1 mg 02/11/19 19:20 02/16/19 20:14 Ativan SLOW IVP 1 mg Q6H PRN Administration Agitation Pantoprazole Sodium 40 mg 02/10/19 09:00 02/17/19 09:45 Protonix PO 40 mg DAILY RENA Administration Risperidone 0.5 mg 02/13/19 21:00 02/16/19 20:22 Risperdal Oral Solution PO 0.5 mg HS RENA Administration Sodium Chloride 10 ml 02/10/19 09:00 02/17/19 09:46 Flush - Normal Saline IVF 10 ml Q12HR RENA Administration Sodium Chloride 10 ml 02/09/19 23:56 02/15/19 05:36 Flush - Normal Saline IVF 10 ml PRN PRN Administration Saline Flush - Exam General - other findings: Oriented to person, not to place or time Eye: anicteric sclera ENT: no oropharyngeal lesions Neck: supple Heart: RRR Respiratory - other findings: Occasional wheezes Gastrointestinal: soft, non-tender Extremeties - other findings: s/p right BKA and left ADA Skin: no rashes Neurological: normal sensation to touch, no focal deficits Psychiatric: oriented to place, oriented to time, not oriented Hosp A/P (1) Hypoglycemia Code(s): E16.2 - HYPOGLYCEMIA, UNSPECIFIED Status: Acute (2) Bronchitis Code(s): J40 - BRONCHITIS, NOT SPECIFIED ACUTE OR CHRONIC Status: Acute (3) Volume overload Code(s): E87.70 - FLUID OVERLOAD, UNSPECIFIED Status: Acute (4) Anemia, normocytic normochromic Code(s): D64.9 - ANEMIA, UNSPECIFIED Status: Chronic (5) Chronic combined systolic and diastolic CHF (congestive heart failure) Code(s): I50.42 - CHRONIC COMBINED SYSTOLIC AND DIASTOLIC HRT FAIL Status: Chronic (6) Dementia Code(s): F03.90 - UNSPECIFIED DEMENTIA WITHOUT BEHAVIORAL DISTURBANCE Status: Chronic Qualifiers: (7) Diabetes mellitus type 2 in obese Code(s): E11.69 - TYPE 2 DIABETES MELLITUS WITH OTHER SPECIFIED COMPLICATION; E66.9 - OBESITY, UNSPECIFIED Status: Chronic (8) ESRD (end stage renal disease) on dialysis Code(s): N18.6 - END STAGE RENAL DISEASE; Z99.2 - DEPENDENCE ON RENAL DIALYSIS Status: Chronic (9) HTN (hypertension) Code(s): I10 - ESSENTIAL (PRIMARY) HYPERTENSION Status: Chronic Qualifiers: (10) PVD (peripheral vascular disease) Code(s): I73.9 - PERIPHERAL VASCULAR DISEASE, UNSPECIFIED Status: Chronic - Plan Cards - Acute on chronic CHF, appears euvolemic. Meds adjusted due to hypotension, better today ESRD - cont routine HD Pulm - Bronchitis - home oxygen, nebs, abx Endo - decreased insulin Goal discharge 02/18 to [facility]
[2019-02-17] MEDS: Atorvastatin Calcium 40 MG TAB PO SCH (21:08)
[2019-02-17] MEDS: RisperDAL Oral Solution 1 MG/ML UDCUP PO SCH (21:08)
[2019-02-18] MEDS: Piperacillin/Tazobactam 2.25 GM in Sodium Chloride 0.9% 100 ML IVPB SCH (05:33)
[2019-02-18] MEDS: Aspirin 81 mg Enteric Coated Tablet PO SCH (08:52)
[2019-02-18] MEDS: Heparin 5,000 UNITS/ML VIAL SC SCH (08:53)
[2019-02-18] MEDS ORDERED: Insulin Glargine 10 UNITS in Pre-Filled Syringe 1 EACH SC SCH (09:00)
--- NOTE | 2019-02-18 10:37 | PRG ---
DATE OF SERVICE: 02/18/2019 SUBJECTIVE: Mr. Mancera is an 79-year-old white male with ESRD and followed up by the [facility] for his maintenance hemodialysis. He underwent hemodialysis yesterday. The treatment was shortened due to clotting. At next dialysis, we will consider increasing the heparin. This morning, he voices no new complaints. Denies any chest pain or shortness of breath. He is noted to be less confused. OBJECTIVE: VITAL SIGNS: Blood pressure is 116/57, heart rate 81, respiratory rate 20, temperature 97.2, pulse ox 95%. GENERAL: The patient is awake, alert, comfortable, not in distress. SKIN: Adequate turgor. HEENT: Pinkish conjunctivae. Anicteric sclerae. NECK: No neck mass. No carotid bruits. No JVD. CHEST: No deformities. LUNGS: Clear breath sounds. No wheezing. No crackles. HEART: Normal sinus rhythm. No murmur. No gallops. No rubs. ABDOMEN: Globular. Soft. Nontender. No masses. EXTREMITIES: Status post bilateral leg amputation. MEDICATIONS: Medications of February 18, 2019, reviewed. LABORATORY DATA: Laboratories of February 16, 2019, hemoglobin 11.7. BUN 33, creatinine 4.11, potassium 4.3. ASSESSMENT AND PLAN: 1. End-stage renal disease, stable. Continue current hemodialysis regimen. Tolerating said treatment. Fluid removal only as tolerated. Consider increasing heparin dose with next dialysis. 2. Status post sepsis, blood cultures were negative, status post IV antibiotics, doing well. 3. Confusion, secondary to a possible metabolic encephalopathy, doing better. 4. Anemia, stable on weekly Epogen. Job ID: [id number]
[2019-02-18 11:58] VITALS: TEMP 98.4
[2019-02-18 12:30] VITALS: BMI 27.3
--- NOTE | 2019-02-18 16:25 | PRG ---
DATE OF SERVICE: 02/18/2019 SERVICE: Pulmonary Medicine. INTERVAL HISTORY: The patient continues to indicate he is in his usual state of health. He has no shortness of breath or chest discomfort. No nausea, vomiting, or diarrhea. He is not coughing. He is essentially back to baseline. PHYSICAL EXAMINATION: VITAL SIGNS: Afebrile, pulse 80, blood pressure 112/63, respirations 20, and saturation 95% on 2 L nasal cannula. GENERAL: The patient is awake and alert, in no apparent distress. LUNGS: Decent air entry with no prolonged expiratory phase. No crackles or wheezing appreciated. HEART: Normal rate and regular. ABDOMEN: Soft, nontender, and nondistended. Bowel sounds are positive. MUSCULOSKELETAL: No cyanosis or clubbing. No pitting in the bilateral lower extremities. NEUROLOGIC: Grossly nonfocal. ASSESSMENT: 1. Acute on chronic hypoxic respiratory failure, at baseline. 2. Chronic hypercapnic respiratory failure. 3. End-stage renal disease. 4. Acute on chronic diastolic heart failure. 5. Obstructive sleep apnea, suspected. DISCUSSION AND PLAN: I will have the patient follow up with me in the outpatient setting to pursue a polysomnogram. He remained stable for transition out of the [facility] or discharge. I will continue to follow if he stays in this location. Job ID: [id number]
--- NOTE | 2019-02-19 07:04 | DIS ---
DATE OF ADMISSION: 02/09/2019 DATE OF DISCHARGE: 02/18/2019 PRIMARY CARE PHYSICIAN: Kelly Pacheco MD. CHIEF COMPLAINT/REASON FOR ADMISSION: 1. Decompensated systolic plus diastolic congestive heart failure with acute exacerbation in the context of inadequate dialysis. 2. Acute respiratory failure with hypoxemia, volume overload, sepsis. DISCHARGE DIAGNOSES: 1. Decompensated systolic plus diastolic congestive heart failure with acute exacerbation in the context of inadequate dialysis. 2. Dementia, with overlay of intermittent delirium. 3. Type 2 diabetes, with hypoglycemic spells and subsequent deescalation of insulin dosing. 4. End-stage renal disease, on hemodialysis. 5. Anemia of chronic disease, on chronic Procrit therapy via dialysis. 6. Acute bronchitis, improved. 7. Peripheral vascular disease, chronic. 8. Essential hypertension. 9. Acute respiratory failure with hypoxemia, in the context of volume overload. 10. Sepsis secondary to pulmonary source/bronchitis, present on admission, status post completion of treatment. . HOSPITAL COURSE: Mr. Mancera is an 79-year-old gentleman living at [facility], with end-stage renal disease, on Friday, Friday, Friday hemodialysis. As per report, patient missed dialysis on Friday, and had partial/inadequate dialysis the day prior to admission. He subsequently developed worsening dyspnea, hypoxemia, respiratory distress, temperature to 102.8, requiring BiPAP initially. He had previously refused dialysis because of cramps, also just generally not feeling well. He developed increasing wheezing and dyspnea, chest x-ray noting moderate pulmonary edema and exam consistent with volume overload. The patient treated for multitude of issues on presentation including sepsis, felt to be secondary to a pulmonary source, as well as decompensated systolic plus diastolic congestive heart failure in the context of fluid overload. Blood cultures notably remained negative. Due to ongoing pulmonary complaints, working diagnosis of bronchitis as source of sepsis, with rapid defervescence and interval improvement in his elevated white blood cell count as well as temperature curve. Prior to discharge, he has completed a course of antibiotics. Mr. Mancera also developed hypoglycemia at intervals during hospital stay with subsequent decrease of his insulin regimen. Nighttime, insulin was discontinued, daytime insulin decreased to 10 units, further adjustments pending his dietary intake and blood sugars at the nursing facility. On the day of discharge, he is sitting up, eating breakfast, and mental status is at baseline. His lungs are overall clear to auscultation. Abdomen is soft. Heart is regular. He appears stable for transition to nursing home facility. MEDICATIONS AT DISCHARGE: As follows: 1. Aspirin 81 mg p.o. once daily. 2. Neurontin 100 mg p.o. twice daily. 3. MiraLax 1 packet p.o. once daily. 4. Lantus 10 units subcu q.a.m. 5. Acetaminophen 325 mg two tablets p.o. q.4 hourly p.r.n. pain. 6. Atorvastatin 80 mg p.o. at bedtime. 7. Tessalon Perles 100 mg p.o. t.i.d. p.r.n. cough. 8. Dulcolax 10 mg NE daily p.r.n. constipation. 9. Carvedilol 3.125 mg p.o. twice daily. Docusate 100 mg p.o. daily. 10. Epoetin jennifer 7500 units subcu q.7 days to be given at dialysis. 11. Gabapentin 100 mg p.o. t.i.d. 12. Guaifenesin/Robitussin DM 10 mL p.o. q.6 hourly p.r.n. cough. 13. Humalog sliding scale. 14. DuoNebs 4 times daily p.r.n. shortness of breath. 15. Loperamide 2 mg p.o. as directed for loose stools. Loratadine 10 mg p.o. at bedtime p.r.n. 1. Melatonin 5 mg p.o. at bedtime p.r.n. sleep. 2. Zofran 8 mg p.o. t.i.d. p.r.n. nausea. 3. Pantoprazole 40 mg p.o. b.i.d., same as admission. 4. Systane eyedrops 1 drop to each eye 4 times daily. 5. Risperdal 0.5 mg p.o. at bedtime. DIET: Diabetic. ACTIVITY: Up with assistance/as tolerated. TIME SPENT: On discharge planning 50 minutes. Job ID: [id number]
--- NOTE | 2019-02-21 00:25 | EKG ---
Test Reason : SOB Blood Pressure : / mmHG Vent. Rate : 079 BPM Atrial Rate : 079 BPM P-R Int : 154 ms QRS Dur : 096 ms QT Int : 376 ms P-R-T Axes : 022 052 048 degrees QTc Int : 431 ms Poor data quality, interpretation may be adversely affected Normal sinus rhythm Nonspecific ST and T wave abnormality Abnormal ECG Confirmed by OLIVIER FRANK [id number]), editorial clerk ANNE ANDERSON ([id number]) on 02/21/2019 12:24:32 AM Referred By: MONIKA Confirmed By:OLIVIER FRANK
== END 2019-02-18 15:02 | DRG 871 ==
LOC: ERS 19:51 → IMCU/EMU 23:17
PROVIDERS: ADMIT Internal Medicine; ATTEND Internal Medicine
PROC: 5A09457 Assistance with Respiratory Ventilation, 24-96 Consecutive Hours, Continuous Positive Airway Pressure (ICD-10-PCS; 2019-02-09)
PROC: 5A1D70Z Performance of Urinary Filtration, Intermittent, Less than 6 Hours Per Day (ICD-10-PCS; principal; 2019-02-17)
DX: A41.9 Sepsis, unspecified organism (principal); N18.6 End stage renal disease; J18.9 Pneumonia, unspecified organism; J96.21 Acute and chronic respiratory failure with hypoxia; G93.41 Metabolic encephalopathy; I50.33 Acute on chronic diastolic (congestive) heart failure; I13.2 Hypertensive heart and chronic kidney disease with heart failure and with stage 5 chronic kidney disease, or end stage renal disease; I25.10 Atherosclerotic heart disease of native coronary artery without angina pectoris; E11.22 Type 2 diabetes mellitus with diabetic chronic kidney disease; E78.5 Hyperlipidemia, unspecified; I73.9 Peripheral vascular disease, unspecified; F03.90 Unspecified dementia, unspecified severity, without behavioral disturbance, psychotic disturbance, mood disturbance, and anxiety; D63.8 Anemia in other chronic diseases classified elsewhere; K21.9 Gastro-esophageal reflux disease without esophagitis; E11.40 Type 2 diabetes mellitus with diabetic neuropathy, unspecified; G54.7 Phantom limb syndrome without pain; J44.9 Chronic obstructive pulmonary disease, unspecified; J20.9 Acute bronchitis, unspecified; R65.20 Severe sepsis without septic shock; G47.33 Obstructive sleep apnea (adult) (pediatric); E11.649 Type 2 diabetes mellitus with hypoglycemia without coma; Z99.2 Dependence on renal dialysis; Z95.1 Presence of aortocoronary bypass graft; Z89.612 Acquired absence of left leg above knee; Z89.511 Acquired absence of right leg below knee; Z88.8 Allergy status to other drugs, medicaments and biological substances; Z79.82 Long term (current) use of aspirin; Z79.4 Long term (current) use of insulin; Z87.891 Personal history of nicotine dependence
CPT/HCPCS: 36415; 36416; 71045; 80048; 80053; 80069; 80202; 82553; 82805; 83605; 84145; 84484; 85025; 87040; 87340; 90935; 93005; 94640; 94660; 96365; 96366; 96375; G0257; J0692; J0696; J1610; J1644; J1815; J2060; J2543; J3370; J3490; J7050; J7620; Q5105

== ENCOUNTER 2019-03-01 16:31 | Emergency (ER) | payer MEDICARE, MEDICAID ==
[2019-03-01 17:21] LABS: #Eosinphils 0.4 thou/uL (0.0-0.7); #Lymphocytes 1.1 thou/uL (1.20-3.40); #Monocytes 0.7 thou/uL (0.11-0.59); #Neutrophils 4.4 thou/uL (1.40-6.50); %Basophils 0.5 % (0.0-1.0); %Eosinophils 6.1 % (0.0-10.0); %Lymphocytes 16.6 % (21.0-51.0); %Monocytes 10.1 % (0.0-10.0); %Neutrophils 66.7 % (42.0-75.0); Hemoglobin 11.3 g/dL (14.0-18.0); Mean Corpuscular HGB CONC 33.6 g/dL (32.0-36.0); Mean Corpuscular Hemoglobin 34.1 pg (27.0-31.0); Platelet Count 158 thou/uL (130-400); RBC Distribution Width 15.8 % (11.5-14.5); White Blood Cell (WBC) Count 6.7 thou/uL (4.8-10.8)
[2019-03-01 17:41] LABS: ALT (SGPT) 16 U/L (8-55); AST (SGOT) 13 U/L (5-34); Albumin 4.1 g/dL (3.4-4.8); Alkaline Phosphatase 74 U/L (40-150); Anion Gap 10 mmol/L (10-20); BUN (Urea Nitrogen) 36 mg/dL (8.4-25.7); Bilirubin, Total 0.6 mg/dL (0.2-1.2); Calc. Creatinine Clearance 0 mL/min (70-130); Calcium 9.4 mg/dL (7.8-10.44); Carbon Dioxide 32 mmol/L (23-31); Chloride 96 mmol/L (98-107); Estimated GFR-MDRD 19; Globulin 3.4 g/dL (2.4-3.5); Glucose 179 mg/dL (83-110); Potassium 3.9 mmol/L (3.5-5.1); Protein, Total 7.5 g/dL (5.8-8.1); Sodium 134 mmol/L (136-145)
== END 2019-03-01 18:55 | disposition home or self-care (01) ==
LOC: ERS 16:31
DX: I13.2 Hypertensive heart and chronic kidney disease with heart failure and with stage 5 chronic kidney disease, or end stage renal disease (principal); E11.22 Type 2 diabetes mellitus with diabetic chronic kidney disease; I50.9 Heart failure, unspecified; N18.6 End stage renal disease; R05 Cough; I25.10 Atherosclerotic heart disease of native coronary artery without angina pectoris; J44.9 Chronic obstructive pulmonary disease, unspecified; D64.9 Anemia, unspecified; G47.00 Insomnia, unspecified; Z87.891 Personal history of nicotine dependence; Z99.2 Dependence on renal dialysis; Z79.82 Long term (current) use of aspirin; Z79.899 Other long term (current) drug therapy
CPT/HCPCS: 36415; 80053; 85025

== ENCOUNTER 2019-04-17 03:52 | Emergency (ER) | payer MEDICARE, MEDICAID ==
--- NOTE | 2019-04-17 07:34 | RAD ---
XR Chest 1 View Portable History: Rib pain Comparison: Radiograph February 16, 2019 Findings: There are fractures and displacement of the median sternotomy wires including the third and the fourth metatarsal mediastinal wires. The third wire is displaced into the patient's left and right is displaced to the patient's right. Heart size markedly enlarged. Small effusions. Mild pulmonary edema. Impression: Mild decompensated congestive heart failure. Displacement of fractured median sternotomy wires is similar.
== END 2019-04-17 05:36 ==
LOC: ERS 03:52
DX: J44.9 Chronic obstructive pulmonary disease, unspecified (principal); I13.2 Hypertensive heart and chronic kidney disease with heart failure and with stage 5 chronic kidney disease, or end stage renal disease; N18.6 End stage renal disease; I50.9 Heart failure, unspecified; D63.1 Anemia in chronic kidney disease; G47.00 Insomnia, unspecified; I25.10 Atherosclerotic heart disease of native coronary artery without angina pectoris; E11.22 Type 2 diabetes mellitus with diabetic chronic kidney disease; E78.5 Hyperlipidemia, unspecified; Z79.82 Long term (current) use of aspirin; Z79.4 Long term (current) use of insulin; Z79.899 Other long term (current) drug therapy; Z99.2 Dependence on renal dialysis
CPT/HCPCS: 71045; 93005; 94640; J7620

== ENCOUNTER 2019-05-03 16:37 | Inpatient (IN) | payer MEDICARE, MEDICAID ==
--- NOTE | 2019-05-03 17:40 | RAD ---
RADIOGRAPH CHEST 1 VIEW: DATE: 05/03/2019 HISTORY: 79-year-old male with altered mental status. Concern for aspiration. FINDINGS: There are no airspace densities, pulmonary edema, pneumothorax, or cardiomegaly. The lateral costophr enic angles are sharp. Small faint density at left lower lung zone represents paracardial fat pad. Multiple displaced, broken sternotomy wires. IMPRESSION: No acute cardiopulmonary findings.
[2019-05-03 17:53] LABS: #Eosinphils 0.3 thou/uL (0.0-0.7); #Lymphocytes 1.2 thou/uL (1.20-3.40); #Monocytes 1.1 thou/uL (0.11-0.59); #Neutrophils 11.1 thou/uL (1.40-6.50); %Eosinophils 2.3 % (0.0-10.0); %Monocytes 7.8 % (0.0-10.0); %Neutrophils 80.8 % (42.0-75.0); Hemoglobin 14.3 g/dL (14.0-18.0); Mean Corpuscular HGB CONC 33.4 g/dL (32.0-36.0); Mean Corpuscular Hemoglobin 33.5 pg (27.0-31.0); Mean Platelet Volume 8.4 fL (7.4-10.4); Platelet Count 159 thou/uL (130-400); RBC Distribution Width 13.2 % (11.5-14.5); Red Blood Cell (RBC) Count 4.25 mill/uL (4.70-6.10); White Blood Cell (WBC) Count 13.7 thou/uL (4.8-10.8)
--- NOTE | 2019-05-03 18:08 | CT ---
EXAM: Brain CT scan Without contrast: HISTORY: Altered mental status COMPARISON: 05/26/2017 FINDINGS: Overall stable exam. Atrophy and chronic white matter ischemic change. No focal mass or midline shift. No intra or extra-axial hemorrhage. The visualized sinuses and mastoids are clear of acute process. IMPRESSION: No mass or bleed or other significant acute intracranial process.
[2019-05-03 18:14] LABS: ALT (SGPT) 16 U/L (8-55); AST (SGOT) 14 U/L (5-34); Albumin 4.4 g/dL (3.4-4.8); Alkaline Phosphatase 95 U/L (40-110); Anion Gap 16 mmol/L (10-20); BUN (Urea Nitrogen) 36 mg/dL (8.4-25.7); Bilirubin, Total 0.6 mg/dL (0.2-1.2); Calc. Creatinine Clearance 0 mL/min (70-130); Calcium 9.7 mg/dL (7.8-10.44); Carbon Dioxide 25 mmol/L (23-31); Chloride 99 mmol/L (98-107); Estimated GFR-MDRD 19; Globulin 3.7 g/dL (2.4-3.5); Glucose 201 mg/dL (83-110); Potassium 4.4 mmol/L (3.5-5.1); Protein, Total 8.1 g/dL (5.8-8.1); Sodium 136 mmol/L (136-145)
[2019-05-03 18:36] LABS: CKMB 2.2 ng/mL (0-6.6)
[2019-05-03] MEDS ORDERED: Aspirin Chewable 81 MG TAB ONE ×2 (19:40)
[2019-05-03] MEDS ORDERED: Dextrose 5% in Water 1,000 ML IV PRN (20:55)
[2019-05-03] MEDS ORDERED: Dextrose 50% Abboject 50 ML SYRINGE SLOW IVP PRN (20:55)
[2019-05-03] MEDS ORDERED: Furosemide 100 MG/10 ML VIAL SLOW IVP SCH (21:00)
[2019-05-03 21:29] LABS: Troponin I 0.038 ng/mL (< 0.028)
--- NOTE | 2019-05-03 22:10 | HP ---
PRESENTING COMPLAINT: Altered mental status. HISTORY OF PRESENT ILLNESS: Mr. Amrik Mancrea is an 79-year-old male with past medical history of hypertension, diabetes mellitus, bilateral BKA, ESRD, on hemodialysis Friday, Friday, and Friday, admitted after undergoing dialysis today, unclear how much fluid was removed. The patient was then brought in by family because the patient has been having fluctuating level of confusion since the last couple of days. The family reports the patient will have intermittent symptoms whenever he has infection in the past. Of note, review of records does not mention any diagnosis of dementia in the patient records, but Jordi nightly was seen on patient's medication. The patient initially on arrival in the ED was reportedly oriented and conversant, but later became more confused and agitated, reportedly spitting out his medication including aspirin, pulled out his IV. On arrival in the ED, I tried to talk with the patient and asked him his name, but he refused to answer rather stating, why do I want his name. Later, the patient refused to talk and became more agitated during the interview. There is no reported fever. The patient was started on Augmentin for reported nasal congestion symptoms [facility] at the [facility]. A recent UA obtained by the [facility] 3 days ago was reportedly negative. PAST MEDICAL HISTORY: Significant for hypertension, diabetes mellitus, ESRD, dementia, chronic anemia, chronic CHF systolic, PVD, bilateral BKA. ESRD, on HD. PAST SURGICAL HISTORY: Bilateral BKA, AVF creation. ALLERGIES: ACETAMINOPHEN, HYDROCODONE, AND AMBIEN. SOCIAL HISTORY: The [facility] is [facility] in a [facility] since over the last two years. No history of tobacco or alcohol use. REVIEW OF SYSTEMS: Unable to obtain due to patient's confusion. FAMILY HISTORY: Noncontributory. HOME MEDICATIONS: See medication list MAR. Home medications include: 1. Aspirin. 2. Neurontin. 3. Loratadine. 4. Melatonin. 5. Imdur. 6. Lantus. 7. Humalog. 8. Coreg. 9. Colace. 10. Latanoprost. 11. Zofran. 12. Protonix. 13. Robitussin. 14. Tessalon Perles. 15. MiraLax. PHYSICAL EXAMINATION: CURRENT VITAL SIGNS: Blood pressure of 149/76, pulse of 67, respiratory rate of 20, on 2 L nasal cannula O2 sat of 95% to 96%. GENERAL: Obese elderly male. Awake but confused, relatively minimal speech flow. HEAD: Atraumatic and normocephalic. Pupils equal and reactive to light. NECK: Mildly increased JVD. RESPIRATORY: Decreased breath sounds in bilateral bases with crepitations. No wheeze. CARDIOVASCULAR: S1 and S2. Rate and rhythm regular. GI: Abdomen is mildly distended but soft. Bowel sounds positive. EXTREMITIES: Left above-knee amputation and right BKA. NEUROLOGIC: The patient is awake. Nonconversant, repeatedly trying to get out of bed. Moving upper extremities well. LABORATORY DATA: Chest x-ray shows moderate pulmonary congestive changes with blunting of the left base, unable to determine . WBC 38.7, neutrophils 80%, hemoglobin 14, hematocrit 42. Sodium 136, potassium 4.4, bicarb 25, AST, ALT, alkaline phosphatase normal. Troponin 0.04. Head CT negative. IMPRESSION: 1. Metabolic encephalopathy-possibly due to congestive heart failure as well as recent upper respiratory tract infection. 2. End-stage renal disease. 3. Hypertension. 4. Diabetes mellitus. 5. Metabolic encephalopathy on baseline dementia. PLAN: 1. We will admit the patient to observation. Given the patient's agitation, we will do Geodon p.r.n. at low doses. Given pulmonary congestive changes, we will consult Nephrology for possible repeat dialysis in the morning for more fluid removal. We will hold neuro-sedative medications as for now including melatonin and loratadine. The patient might benefit from avoiding these medications in the future. Unclear if the patient is getting Benadryl in dialysis, it might need to be held. 2. Leukocytosis-may be due to upper respiratory tract infection. We will obtain sputum for culture and sensitivity. We will start empiric antibiotics with Rocephin for now. 3. Hypertension. Continue Coreg and Imdur. 4. Deep vein thrombosis prophylaxis with subcutaneous heparin. 5. Advanced directive. Per record, the patient is DNR. We will continue DNR status for now. Attempt made to reach daughter but unable to get, unable to discuss advance care directive with the patient since he is confused. Total time spent on review of record, discussion with patient, evaluation is greater than 65 minutes. Job ID: [id number]
[2019-05-04 00:34] LABS: Troponin I 0.048 ng/mL (< 0.028)
[2019-05-04] MEDS ORDERED: Ondansetron PF 4 MG/2 ML Vial IVP PRN (03:55)
[2019-05-04] MEDS ORDERED: Sterile Water 10 ML VIAL FS PRN (04:00)
[2019-05-04] MEDS ORDERED: Heparin 5,000 UNITS/ML VIAL SC SCH (04:15)
[2019-05-04] MEDS ORDERED: Famotidine/PF 20 mg/2ml Vial SLOW IVP SCH (04:15)
[2019-05-04] MEDS ORDERED: Carvedilol 3.125 MG TAB PO SCH (04:15)
[2019-05-04] MEDS ORDERED: RisperDAL Oral Solution 1 MG/ML UDCUP PO SCH ×2 (04:30→21:00)
[2019-05-04] MEDS: cefTRIAXone\\ROCEPHIN 1 GM in Sodium Chloride 0.9% 100 ML IVPB SCH (05:31)
[2019-05-04 09:30] LABS: Bacteria/HPF 1+ HPF (None Seen); Bilirubin Negative (Negative); Blood, Urine Trace (Negative); Clarity Clear (Clear); Glucose, Urine (Dipstick) 100 mg/dL (Negative); Leukocyte Negative Leu/uL (Negative); Nitrite Negative (Negative); Protein, Urine (Dipstick) 300 mg/dL (Neg-Trace); RBC/HPF 0-3 HPF (0-3); Squamous Epithelial 0-3 HPF (0-3); Urobilinogen Normal mg/dL (Less than 2); WBC/HPF 0-3 HPF (0-3)
[2019-05-04] MEDS: EPOETIN ALFA-EPBX (ESRD) 4,000 UNIT/ML VIAL SC SCH (11:13)
[2019-05-04] MEDS: Aspirin 81 mg Enteric Coated Tablet PO SCH (11:14)
[2019-05-04 12:39] LABS: Base Excess (BEa) 1.3 mEq/L (-2.0 to +3.0); CO2 Tension 46.5 mmHg (35.0-45.0); Calcium, Ionized 1.11 mmol/L (1.12-1.30); Carboxyhemoglobin (COHb) 1.2 gm% (0.0-3.0); Hemoglobin (Hb) 13.4 g/dL (14.0-18.0); Potassium - ABG Lab 4.68 mmol/L (3.70-5.30); Puncture Site RR; pH, Arterial 7.38 (7.35-7.45)
--- NOTE | 2019-05-04 13:48 | PRG ---
DATE OF SERVICE: 05/04/2019 SUBJECTIVE: The patient was seen at bedside, admitted with altered mental status. The patient is awake and oriented in place at present, following commands. As per nursing staff, the patient gets intermittently episodes of unresponsiveness. However, no such episodes noted in my discussion with the patient. OBJECTIVE: VITAL SIGNS: Blood pressure 150/65, temperature 98.6, pulse 62, respirations 16, and oxygen saturation 98%. GENERAL: The patient is lying in bed comfortably, not in distress. HEENT: Conjunctivae are normal. Oral mucosa moist. NECK: Supple. No JVD. No lymphadenopathy. CHEST: Vesicular breathing with prolonged expiration. No rhonchi at present. HEART: Sounds normal. ABDOMEN: Soft, benign. No tenderness or visceromegaly. EXTREMITIES: Bilateral leg amputations. LABORATORY DATA: Blood glucose 189. Troponin 0.048, 0.038. UA, negative for acute findings. EKG, nonspecific ST-T changes. Normal sinus rhythm. IMPRESSION: 1. Acute encephalopathy, unclear cause. The patient's ABG does not show any hypoxia or hypercapnia. The patient had upper respiratory tract symptoms. For the last few days, chest x-ray is normal. As per nursing staff The patient has intermittent episode of unresponsiveness. We will get Neurology evaluation. MRI brain ordered. We will continue neuro check monitoring. 2. Chronic obstructive airway disease, on 2 L of oxygen. Continue oxygen. Continue DuoNeb as needed. 3. Positive troponin, possible demand-supply mismatch. The patient denies any chest pain. EKG without any changes. Continue to monitor clinically. 4. Hypertension. Continue blood pressure medication. 5. History of dementia. Continue supportive care. PLAN: Discussed with the nursing staff in detail. Job ID: [id number] [facility]
[2019-05-04] MEDS: Heparin 5,000 UNITS/ML VIAL SC SCH ×2 (14:28→23:30)
[2019-05-04] MEDS: HumaLOG 300 UNITS/3 ML VIAL SC PRN ×2 (14:28→18:00)
--- NOTE | 2019-05-04 14:29 | CON ---
DATE OF CONSULTATION: HISTORY OF PRESENT ILLNESS: Mr. Mancera is an 79-year-old white male with known history of ESRD, on maintenance hemodialysis, who was sent to the ER for mental status change. He has been having a mental status change on and off for the last several days. During the initial evaluation, he was found to be in some degree of volume overload. We are now being consulted for maintenance hemodialysis. He had shortened treatment yesterday due to mental status change and confusion. We will be scheduling him for a short 2-hour hemodialysis today. I would then resume his regular 4-hour dialysis in a.m. REVIEW OF SYSTEMS: Positive for confusion, resolved. No nausea. No vomiting. No diarrhea. No constipation. No productive cough. No fever or chills. Mild shortness of breath on exertion. No gross hematuria. No dysuria. No urinary frequency. No headache. No diplopia. MEDICATIONS: The patient is currently on the following; 1. Aspirin 81 mg tablet once a day. 2. Coreg 3.125 mg p.o. b.i.d. 3. Ceftriaxone 1 g IV daily. 4. Glucagon 1 mg p.r.n. 5. Famotidine 20 mg IV daily. 6. Epogen 7500 units subcu every 7 days. 7. Heparin 5000 units subcu daily. 8. Risperdal 0.5 mg nightly. 9. Zofran 4 mg IV q.6 p.r.n. 10. Geodon 10 mg q.2 p.r.n. PAST MEDICAL HISTORY: 1. ESRD and currently on maintenance hemodialysis. 2. History of early dementia/agitation. 3. Type 2 diabetes mellitus. 4. Peripheral vascular disease. 5. Hyperlipidemia. 6. Coronary artery disease. 7. Peripheral neuropathy. 8. COPD. 9. Diverticular disease. 10. Status post gastric ulcer. 11. Status post CHF. PAST SURGICAL HISTORY: 1. Status post right BKA. 2. Status post left AKA. 3. Status post cardiac cath. 4. Status post CABG. 5. Status post upper and lower GI endoscopy. 6. Status post AV fistula placement. 7. Status post left knee surgery. 8. Status post cuffed dialysis catheter placement. SOCIAL HISTORY: The patient is currently in a long-term. He is , 4 children and one step child. Smoked for 50 years, 2 packs a day. Alcohol, none. No IV drug abuse. Sedentary lifestyle. Education, high school. Retired [employer]. ALLERGIES: NONE. TRAUMA: Status post left knee fracture. IMMUNIZATION: Up to date. HOSPITALIZATIONS: Please see past medical history. FAMILY HISTORY: No family history of ESRD. PHYSICAL EXAMINATION: VITAL SIGNS: Blood pressure is noted at 150/65, heart rate 62, respiratory rate 16, temperature 98.6, and pulse ox 98%. GENERAL: Noted to be awake, sitting comfortable, not in overt distress, obese. SKIN: Adequate turgor. HEENT: Slightly pale conjunctivae. Anicteric sclerae. NECK: No neck mass. No carotid bruits. No JVD. CHEST: No deformities. LUNGS: Decreased breath sounds. HEART: Normal sinus rhythm. No murmur. No gallops. No rubs. ABDOMEN: Globular, soft, and nontender. No masses. EXTREMITIES: Status post right BKA, status post left AKA. NEUROLOGIC: Awake and follow simple commands, not in distress. LABORATORY DATA: On 05/03/2019: White count 13.7, hemoglobin 14.3. On potassium 4.4, BUN 36, creatinine 3.16. LFTs normal. On May 04, 2019: Glucose 189. On 05/03/2019: Chest x-ray shows increased lung markings. On 05/03/2019: CT scan of the brain shows no mass or bleed. ASSESSMENT AND PLAN: 1. Shortness of breath, this is actually stable with the patient. Initially, I felt that we need to dialyze him. I did review the chest x-ray and the chest x-ray is relatively unchanged from previous chest x-rays. We will hold off dialysis today. We will resume back his dialysis tomorrow. 2. End-stage renal disease, stable. We will continue current maintenance hemodialysis on Friday, Friday, and Friday. We will do a 4-hour hemodialysis treatment with him. 3. Chronic anemia. Continuing weekly Epogen. 4. Mental status change, transient in nature. No acute intracranial abnormality with a CAT scan. This may be related to his antipsychotic medications. Job ID: [id number]
--- NOTE | 2019-05-04 17:25 | ULT ---
EXAM: Carotid vascular duplex with color and spectral Doppler imaging: HISTORY: Transient altered mentation COMPARISON: None FINDINGS: Prominent bilateral visible plaque Right ICA: PSV: 77 cm/s EDV: 8 cm/s ICA/CCA ratio: 1.0 Left ICA: PSV: 127 cm/s EDV: 17/s ICA/CCA ratio: 2.0 Antegrade flow is seen in both vertebral arteries.. IMPRESSION: No evidence for hemodynamically significant ICA stenosis Evidence for bilateral arterial vascular carotid artery disease.
[2019-05-04] MEDS: Carvedilol 3.125 MG TAB PO SCH (23:26)
--- NOTE | 2019-05-04 23:46 | CON ---
DATE OF CONSULTATION: 05/04/2019 CONSULTING PHYSICIAN: Hospitalist Service. IMPRESSION: Variable mental status with transient expressive aphasia suggesting the possibility of subclinical seizures. PLAN: 1. Keppra 500 mg twice a day. 2. Monitor clinical course. HISTORY OF PRESENT ILLNESS: Mr. Mancera is an 79-year-old gentleman who was brought in due to change in mental status. He has been noted throughout the day to have some waxing and waning level of alertness. At times, he is quite lucid and inappropriate. At other times, he seems to be in a dazed appearance with inability to speak. This would last as long as 30 minutes. He had an EEG done earlier, which shows some diffuse slowing, but no epileptiform features. His initial imaging did not reveal any acute ischemic changes. His lab work is unremarkable. He is unable to give me any significant history other than he has had amputations. ALLERGIES: PER CHART. SOCIAL HISTORY: He is apparently living in the [facility] with family in the vicinity. There is no drug or alcohol use known. REVIEW OF SYSTEMS: Ten-system review of systems is otherwise negative by his report. PHYSICAL EXAMINATION: GENERAL: He is a slightly overweight elderly man, sitting up in bed, in no distress. VITAL SIGNS: Stable. He is afebrile. HEENT: Pupils are equal. Conjunctivae are clear. Oropharynx is clear. NECK: Supple. No lymphadenopathy. EXTREMITIES: Bilateral amputations of the lower extremities. NEUROLOGIC: He is alert and cooperative. He follows commands appropriately. His speech is fluent and clear. He is not oriented to time or place. He has symmetric facies. There are no motor deficits noted. There is no tremor or other abnormal movements present. Gait is not tested. Sensation is intact to light touch. SUMMARY: Given the variable mental status, it is highly suspicious for a subclinical seizure, I will see how he responds to Keppra. Job ID: [id number]
[2019-05-05 05:02] LABS: #Basophils 0.1 thou/uL (0.0-0.2); #Eosinphils 0.5 thou/uL (0.0-0.7); #Lymphocytes 1.8 thou/uL (1.20-3.40); #Monocytes 0.9 thou/uL (0.11-0.59); #Neutrophils 4.6 thou/uL (1.40-6.50); %Eosinophils 5.8 % (0.0-10.0); %Lymphocytes 23.3 % (21.0-51.0); %Monocytes 11.1 % (0.0-10.0); %Neutrophils 58.7 % (42.0-75.0); Hemoglobin 13.2 g/dL (14.0-18.0); Mean Corpuscular HGB CONC 33.2 g/dL (32.0-36.0); Mean Corpuscular Hemoglobin 33.5 pg (27.0-31.0); Mean Platelet Volume 8.6 fL (7.4-10.4); Platelet Count 152 thou/uL (130-400); RBC Distribution Width 13.2 % (11.5-14.5); Red Blood Cell (RBC) Count 3.93 mill/uL (4.70-6.10); White Blood Cell (WBC) Count 7.9 thou/uL (4.8-10.8)
[2019-05-05] MEDS: cefTRIAXone\\ROCEPHIN 1 GM in Sodium Chloride 0.9% 100 ML IVPB SCH (05:19)
[2019-05-05 05:26] LABS: Eosinophils 1 % (0-10); Hemoglobin 13.1 g/dL (14.0-18.0); Hypochromia SLIGHT = 6-15 cells (100X) (0-5/hpf); Lymphocytes 17 % (21-51); MDiff Complete? YES; Mean Corpuscular HGB CONC 33.1 g/dL (32.0-36.0); Mean Corpuscular Volume 99.6 fL (78.0-98.0); Mean Platelet Volume 8.4 fL (7.4-10.4); Monocytes 5 % (0-10); Neutrophil 77 % (42-75); Platelet Count 156 thou/uL (130-400); Platelet Morphology Comment Appears Adequate; RBC Distribution Width 13.2 % (11.5-14.5); Red Blood Cell (RBC) Count 3.97 mill/uL (4.70-6.10); White Blood Cell (WBC) Count 7.7 thou/uL (4.8-10.8)
[2019-05-05 05:31] LABS: Anion Gap 19 mmol/L (10-20); BUN (Urea Nitrogen) 59 mg/dL (8.4-25.7); Calc. Creatinine Clearance 17 mL/min (70-130); Calcium 9.3 mg/dL (7.8-10.44); Carbon Dioxide 20 mmol/L (23-31); Chloride 98 mmol/L (98-107); Estimated GFR-MDRD 12; Glucose 128 mg/dL (83-110); Potassium 4.5 mmol/L (3.5-5.1); Sodium 132 mmol/L (136-145)
[2019-05-05] MEDS ORDERED: Famotidine/PF 20 mg/2ml Vial SLOW IVP SCH (09:00)
--- NOTE | 2019-05-05 09:13 | PRG ---
DATE OF SERVICE: 05/05/2019 SUBJECTIVE: Mr. Mancera is an 79-year-old white male with ESRD and admitted for mental status change. He is much improved. I feel that the confusion may have been related to his antipsychotic medications. He voices no new complaints today. He has no chest pain or shortness of breath. He is currently undergoing hemodialysis. OBJECTIVE: VITAL SIGNS: Blood pressure 184/80, heart rate 73, respiratory rate 16, temperature 97.9, pulse ox 93%. GENERAL: Noted to be awake, alert, comfortable, not in overt distress. SKIN: Adequate turgor. HEENT: He has pinkish conjunctivae. Anicteric sclerae. No neck mass. No carotid bruits. No JVD. CHEST: No deformities. LUNGS: Clear breath sounds. No wheezing. No crackles. HEART: Normal sinus rhythm. No murmurs. No gallops. No rubs. ABDOMEN: Globular, soft, nontender. No masses. EXTREMITIES: Status post right BKA, status post left AKA. NEUROLOGICAL: Awake, oriented to 2 spheres. Moving all extremities. No tremors. No asterixis. MEDICATIONS: Medications of May 05, 2019, reviewed. LABORATORY DATA: Laboratories of May 05, 2019; white count 7.9, hemoglobin 13.2. Sodium 132, potassium 4.5, chloride 98, carbon dioxide 20, BUN 59, creatinine 4.85, glucose 128, calcium 9.3. ASSESSMENT AND PLAN: 1. End stage renal disease, stable. We will continue current hemodialysis regimen. Fluid removal of about 3 to 3.5 L as tolerated. 2. Chronic anemia, on weekly Epogen. 3. Mental status change - much improved. Continue supportive care. Job ID: [id number]
[2019-05-05] MEDS ORDERED: levETIRAcetam 500 MG TAB PO SCH ×2 (10:15→21:00)
--- NOTE | 2019-05-05 10:15 | EEG ---
Referring Physician: Brock MAJANO EEG # [id number] TEST TYPE: ROUTINE PORTABLE INPATIENT REPORT: AN EEG USING THE INTERNATIONAL TEN-TWENTY SYSTEM OF ELECTRODE PLACEMENT WAS PERFORMED. The best waking background is an 8 hertz alpha frequency. Most of the study is a mildly slow background of 6-7 hertz theta. The patient became drowsy, but no sleep was seen. There was some EMG and movement artifact present. Photic stimulation was unremarkable. No epileptiform features were present. IMPRESSION: THIS IS A MILDLY ABNORMAL EEG FOR THE FINDINGS OF MILD GENERALIZED SLOWING. Membership Sales Manager: BELKIS Pet Technologist: EEG.[facility]
[2019-05-05] MEDS: Carvedilol 3.125 MG TAB PO SCH ×2 (11:35→20:01)
[2019-05-05] MEDS: Heparin 5,000 UNITS/ML VIAL SC SCH ×3 (11:35→20:01)
[2019-05-05] MEDS: Aspirin 81 mg Enteric Coated Tablet PO SCH ×2 (14:20→14:39)
--- NOTE | 2019-05-05 16:28 | MRI ---
MRI Brain WO Con: 05/05/2019 1:02 PM CLINICAL HISTORY: AMS. COMPARISON: No prior brain MRI FINDINGS: Extra axial spaces: Widened. Acute infarction: None. Ventricular system: Compensatory dilatation related to parenchymal atrophy. Basal cisterns: Normal. Cerebral parenchyma: Microvascular ischemic changes. There is hemosiderin deposition related to remot e infarction of the right basal ganglia. Midline shift: None. Cerebellum: Remote lacunar infarction is present within right cerebellar hemisphere Brainstem: Normal. Paranasal sinuses:Clear IMPRESSION: No acute intracranial abnormality. Chronic findings, as above.
[2019-05-05 17:09] LABS: Lactic Acid 1.4 mmol/L (0.5-2.2)
--- NOTE | 2019-05-05 18:37 | PDOC.HOSPP ---
- Subjective Encounter Date: 05/05/19 Encounter Time: 15:00 Subjective: Chief complaint: altered mental status Subjective: patient in bed, responds to questions and commands but seems not very interactive, nursing confirms he is less interactive than yesterday. No distress, has recieved sedating PRN meds last 24 hours - Objective Vital Signs & Weight: Vital Signs (12 hours) Temp Pulse Resp BP BP Pulse Ox 05/05/19 15:48 98.2 F 83 18 167/74 H 96 05/05/19 11:05 97.7 F 82 17 125/58 L 97 05/05/19 07:37 97.9 F 73 16 184/80 H 93 L Weight Weight 217 lb 11.2 oz I&O: 05/04/19 05/05/19 05/06/19 06:59 06:59 06:59 Intake Total 100 Output Total 125 Balance 100 -125 Result Diagrams: 05/05/19 04:37 05/05/19 04:37 Additional Labs: Accuchecks 05/05/19 05/05/19 05/05/19 16:49 11:12 06:12 POC Glucose 165 H 130 H 128 H 05/04/19 20:19 POC Glucose 109 Hospitalist ROS - Medication Medications: Active Medications Generic Name Dose Route Start Last Admin Trade Name Freq PRN Reason Stop Dose Admin Carvedilol 3.125 mg 05/04/19 21:00 05/05/19 11:35 Coreg PO Not Given BID [facility] Epoetin Sean-epbx 7,500 unit 05/04/19 09:00 05/04/19 11:13 Retacrit SC 7,500 unit Q7D RENA Administration Heparin Sodium (Porcine) 5,000 units 05/04/19 15:00 05/05/19 14:20 Heparin SC 5,000 units TID RENA Administration Ceftriaxone Sodium 1 gm/ 100 mls @ 200 mls/hr 05/04/19 05:00 05/05/19 05:19 Sodium Chloride IVPB 100 mls Q24HR RENA Administration Insulin Human Lispro 0 units 05/03/19 20:55 05/04/19 18:00 Humalog SC 2 unit .MODERATE SLIDING SC PRN Administration Moderate Correctional Scale Pantoprazole Sodium 40 mg 05/04/19 21:00 05/05/19 11:36 Protonix PO Not Given BID RENA - Exam General - other findings: sleeping but rousable, responds to questions but lethargic Eye: PERRL, anicteric sclera ENT: normocephalic atraumatic, moist mucosa Neck: supple, no JVD Heart: RRR, no murmur, no gallops, no rubs Respiratory: CTAB, no wheezes, no rales, no ronchi Gastrointestinal: soft, non-tender, non-distended, normal bowel sounds Extremities - other findings: bilateral amputations with completely healed stumps, no wounds Skin: no lesions, no rashes Neurological - other findings: lethargic, responds to questions Hosp A/P - Plan 79 year old male being treated for: # acute encephalopathy - unknown cause, lactate rechecked and normal, MRI brain without clear cause, placed on keppra for possible seizure by neurology - worsening today may be due to sedating meds, requested nursing use less frequently, will leave order as is in case patient becomes agitated - appreciate specialist input # new onset seizure disorder - appreciate neurology, on keppra, MRI without gross abnormalities, monitor for symptoms # COPD - not in exacerbation, continue duoneb as needed # chronic hypoxic respiaratory failure - continue O2 supplementation as needed, on 2L at home # positive troponin - suspect supply demand mismatch, no chest pain, no EKG changes earlier this admission, continue to monitor # HTN - continue current meds, order PRNs for aberations # history of dementia - as above plan - hold sedating meds, reevaluate, continue seizure meds, follow response to changes next 1-2 days
[2019-05-05] MEDS ORDERED: levETIRAcetam 500 mg/5 ml Oral Solution PO SCH (21:00)
[2019-05-06] MEDS: cefTRIAXone\\ROCEPHIN 1 GM in Sodium Chloride 0.9% 100 ML IVPB SCH (05:28)
[2019-05-06 05:34] LABS: Anion Gap 21 mmol/L (10-20); BUN (Urea Nitrogen) 44 mg/dL (8.4-25.7); Calc. Creatinine Clearance 18 mL/min (70-130); Calcium 9.9 mg/dL (7.8-10.44); Carbon Dioxide 22 mmol/L (23-31); Chloride 99 mmol/L (98-107); Estimated GFR-MDRD 13; Glucose 172 mg/dL (83-110); Potassium 5.4 mmol/L (3.5-5.1); Sodium 137 mmol/L (136-145)
[2019-05-06 05:52] LABS: Hemoglobin 14.8 g/dL (14.0-18.0); Mean Corpuscular HGB CONC 34.4 g/dL (32.0-36.0); Mean Corpuscular Hemoglobin 34.5 pg (27.0-31.0); Platelet Count 170 thou/uL (130-400); RBC Distribution Width 13.1 % (11.5-14.5); Red Blood Cell (RBC) Count 4.29 mill/uL (4.70-6.10); White Blood Cell (WBC) Count 8.3 thou/uL (4.8-10.8)
[2019-05-06 05:53] LABS: Band 1 % (5-11); Eosinophils 2 % (0-10); Lymphocytes 18 % (21-51); MDiff Complete? YES; Monocytes 5 % (0-10); Neutrophil 74 % (42-75); Nucleated RBC 1 % (0); Platelet Morphology Comment Appears Adequate
[2019-05-06] MEDS: Aspirin Chewable 81 MG TAB PO SCH (09:06)
[2019-05-06] MEDS: Carvedilol 3.125 MG TAB PO SCH ×2 (09:06→21:31)
--- NOTE | 2019-05-06 09:11 | PRG ---
DATE OF SERVICE: 05/06/2019 SUBJECTIVE: Mr. Mancera is an 79-year-old white male with ESRD. He has been intermittently confused. Initially, there was a concern he may have subclinical seizure. EEG showed some slowing, but no active seizure activity. In addition, MRI of the brain showed no acute intracranial abnormality. I think his confusion is related from an underlying dementia as well as from his antipsychotic medications. This morning, he is a little bit less responsive, but seems to follow simple commands. OBJECTIVE: VITAL SIGNS: Blood pressure 135/67, heart rate 79, respiratory rate 20, temperature 98, and pulse ox 96% on room air. GENERAL: Noted to be awake, alert, comfortable, not in overt distress. SKIN: Adequate turgor. HEENT: Pinkish conjunctivae. Anicteric sclerae. No neck mass. No carotid bruits. No JVD. CHEST: No deformities. LUNGS: Clear breath sounds. HEART: Normal sinus rhythm. No murmurs, no gallops, no rubs. ABDOMEN: Globular, soft, nontender. No masses. EXTREMITIES: Bilateral leg amputations. MEDICATIONS: Of May 06, 2019, were reviewed. LABORATORY DATA: On May 06, 2019: Sodium 137, potassium 5.4, chloride 99, carbon dioxide 22, BUN 44, creatinine 4.44, calcium 9.9. White count 8.2, hemoglobin 14.8. ASSESSMENT AND PLAN: 1. End-stage renal disease, stable. Continuing Friday, Friday, Friday hemodialysis. Please note, treatment yesterday was shortened due to confusion and agitation. My plan is to continue Friday, Friday, and Friday hemodialysis, 3-1/2 hours per treatment. 2. Anemia, much improved on weekly Epogen. 3. Decreased mentation/confusion - no evidence of seizure disorder by EEG. Neurology is following. This could be a reflection of early dementia. Continue current antipsychotic medications. 4. Agree with current management. Job ID: [id number]
[2019-05-06] MEDS: Heparin 5,000 UNITS/ML VIAL SC SCH ×3 (09:12→21:31)
[2019-05-06] MEDS ORDERED: Aspirin 300 MG Suppository ONE (13:08)
[2019-05-06] MEDS ORDERED: Aspirin 300 MG Suppository PR SCH (13:15)
--- NOTE | 2019-05-06 18:34 | PDOC.HOSPP ---
- Objective Vital Signs & Weight: Vital Signs (12 hours) Temp Pulse Resp BP Pulse Ox 05/06/19 15:21 98.0 F 84 20 187/83 H 94 L 05/06/19 11:25 97.9 F 75 18 181/79 H 94 L Weight Weight 217 lb 11.2 oz I&O: 05/05/19 05/06/19 05/07/19 06:59 06:59 06:59 Output Total 125 1 Balance -125 -1 Result Diagrams: 05/06/19 04:43 05/06/19 04:43 Additional Labs: Accuchecks 05/06/19 05/06/19 05/06/19 16:46 10:37 06:18 POC Glucose 257 H 187 H 166 H 05/05/19 19:48 POC Glucose 173 H Hospitalist ROS - Medication Medications: Active Medications Generic Name Dose Route Start Last Admin Trade Name Freq PRN Reason Stop Dose Admin Aspirin 81 mg 05/06/19 09:00 05/06/19 09:06 Aspirin Chewable PO Not Given DAILY [facility] Carvedilol 3.125 mg 05/04/19 21:00 05/06/19 09:06 Coreg PO Not Given BID [facility] Epoetin Sean-epbx 7,500 unit 05/04/19 09:00 05/04/19 11:13 Retacrit SC 7,500 unit Q7D RENA Administration Heparin Sodium (Porcine) 5,000 units 05/04/19 15:00 05/06/19 16:31 Heparin SC 5,000 units TID RENA Administration Ceftriaxone Sodium 1 gm/ 100 mls @ 200 mls/hr 05/04/19 05:00 05/06/19 05:28 Sodium Chloride IVPB 100 mls Q24HR RENA Administration Levetiracetam 500 mg/ Device 100 mls @ 200 mls/hr 05/05/19 21:00 05/06/19 09: 11 IVPB 100 mls BID RENA Administration Insulin Human Lispro 0 units 05/03/19 20:55 05/04/19 18:00 Humalog SC 2 unit .MODERATE SLIDING SC PRN Administration Moderate Correctional Scale Pantoprazole Sodium 40 mg 05/04/19 21:00 05/06/19 09:07 Protonix PO Not Given BID [facility] Sodium Chloride 10 ml 05/05/19 21:00 05/06/19 09:34 Flush - Normal Saline IVF 10 ml Q12HR RENA Administration Hosp A/P - Plan 79 year old male being treated for: # acute encephalopathy - unknown cause, lactate rechecked and normal, MRI brain without clear cause, placed on keppra for possible seizure by neurology - worsening today may be due to sedating meds, requested nursing use less frequently, will leave order as is in case patient becomes agitated - appreciate specialist input # new onset seizure disorder - appreciate neurology, on keppra, MRI without gross abnormalities, monitor for symptoms # COPD - not in exacerbation, continue duoneb as needed # chronic hypoxic respiaratory failure - continue O2 supplementation as needed, on 2L at home # positive troponin - suspect supply demand mismatch, no chest pain, no EKG changes earlier this admission, continue to monitor # HTN - continue current meds, order PRNs for aberations # history of dementia - as above plan - hold sedating meds, reevaluate, continue seizure meds, follow response to changes next 1-2 days
[2019-05-06] MEDS: HumaLOG 300 UNITS/3 ML VIAL SC PRN (18:58)
[2019-05-07] MEDS: cefTRIAXone\\ROCEPHIN 1 GM in Sodium Chloride 0.9% 100 ML IVPB SCH (04:07)
[2019-05-07 05:09] LABS: #Lymphocytes 1.4 thou/uL (1.20-3.40); #Monocytes 1.2 thou/uL (0.11-0.59); #Neutrophils 7.2 thou/uL (1.40-6.50); %Basophils 0.3 % (0.0-1.0); %Eosinophils 0.4 % (0.0-10.0); %Lymphocytes 14.3 % (21.0-51.0); %Monocytes 12.4 % (0.0-10.0); %Neutrophils 72.6 % (42.0-75.0); Hemoglobin 14.8 g/dL (14.0-18.0); Mean Corpuscular HGB CONC 32.3 g/dL (32.0-36.0); Mean Corpuscular Hemoglobin 32.1 pg (27.0-31.0); Mean Corpuscular Volume 99.4 fL (78.0-98.0); Mean Platelet Volume 8.4 fL (7.4-10.4); Platelet Count 196 thou/uL (130-400); RBC Distribution Width 13.1 % (11.5-14.5); Red Blood Cell (RBC) Count 4.62 mill/uL (4.70-6.10); White Blood Cell (WBC) Count 9.9 thou/uL (4.8-10.8)
[2019-05-07 05:21] LABS: Anion Gap 22 mmol/L (10-20); BUN (Urea Nitrogen) 61 mg/dL (8.4-25.7); Calc. Creatinine Clearance 15 mL/min (70-130); Carbon Dioxide 21 mmol/L (23-31); Chloride 100 mmol/L (98-107); Estimated GFR-MDRD 10; Glucose 198 mg/dL (83-110); Sodium 138 mmol/L (136-145)
[2019-05-07] MEDS: HumaLOG 300 UNITS/3 ML VIAL SC PRN ×2 (06:24→17:02)
[2019-05-07] MEDS ORDERED: Lorazepam 2 MG/ML VIAL SLOW IVP SCH (08:15)
--- NOTE | 2019-05-07 09:24 | PRG ---
DATE OF SERVICE: 05/07/2019 SUBJECTIVE: Mr. Mancera is an 79-year-old white male with ESRD and currently on maintenance hemodialysis. He is currently undergoing hemodialysis. He was admitted for mental status change. This was related to intake of his antipsychotic medications. He is currently undergoing dialysis and tolerating said treatment. No other complaints. OBJECTIVE: VITAL SIGNS: Blood pressure 178/91, heart rate 81, respiratory rate 20, temperature 98, and pulse ox 93%. GENERAL: The patient is sleeping, but arousable, not in distress, obese. SKIN: Adequate turgor. HEENT: He has pinkish conjunctivae. Anicteric sclerae. No neck mass. No carotid bruits. No JVD. CHEST: No deformities. LUNGS: Decreased breath sounds. HEART: Normal sinus rhythm. No murmurs, gallops, or rubs. ABDOMEN: Globular, soft, nontender. No masses. EXTREMITIES: Bilateral leg amputation. MEDICATIONS: Medications of April 27, 2019, were reviewed. LABORATORY DATA: Laboratories of May 07, 2019, white count 9.9, hemoglobin 14.8. Sodium 138, potassium 5, chloride 100, carbon dioxide 21, BUN 61, creatinine 5.48, glucose 198, calcium 10. ASSESSMENT AND PLAN: 1. End-stage renal disease, stable, continuing Friday, Friday, Friday hemodialysis. Fluid removal only as tolerated. Attempting 2.5 L of fluid removal with today's dialysis. 2. Decreased mentation secondary to his antipsychotic medications. He will be getting Ativan 1 mg tablet as needed if he becomes agitated during his dialysis. For the moment, we are holding the Ativan. 3. Overall agree with current management. Job ID: [id number]
[2019-05-07] MEDS ORDERED: Heparin 10,000 UNITS/ 10 ML VIAL ONE (13:21)
[2019-05-07] MEDS: Heparin 5,000 UNITS/ML VIAL SC SCH ×3 (13:27→21:19)
[2019-05-07] MEDS: Aspirin Chewable 81 MG TAB PO SCH (13:27)
[2019-05-07] MEDS: Carvedilol 3.125 MG TAB PO SCH ×2 (13:28→21:16)
--- NOTE | 2019-05-07 14:41 | CON ---
DATE OF CONSULTATION: 05/07/2019 Mr. Mancera had a deterioration in his level of consciousness. He is now down to just moaning and nonverbal. His vital signs remain stable. He has been afebrile overnight. His MRI yesterday did not show any acute ischemic changes or other significant abnormalities. His laboratory studies were only notable for his uremia, which is a bit worse than it had been in prior studies. No seizure activity has been witnessed. He is in dialysis at this point. When I tried to awaken him, he opened his eyes, his eyes appear dysconjugate. His pupils were equal and reactive. He moaned and cried out with any manipulation of his head. He was moving his upper extremities spontaneously. No other abnormal movements were seen. His most recent EEG showed diffuse slowing without any epileptiform features. He is currently on Keppra 500 mg twice a day. I am going to check a cortisol level, but at this point, I do not have any new ideas as to why he is so encephalopathic other than the uremia. Continue supportive measures. Job ID: [id number]
--- NOTE | 2019-05-07 19:04 | PDOC.HOSPP ---
- Subjective Encounter Date: 05/06/19 Encounter Time: 13:00 Subjective: CC: altered mental status Patient in bed, no distress, sleeping now but nursing reports was awake and interactive this AM, not requiring sedating meds any more - Objective Vital Signs & Weight: Vital Signs (12 hours) Temp Pulse Resp BP Pulse Ox 05/07/19 15:11 98.5 F 82 20 138/75 94 L 05/07/19 12:12 98.2 F 80 20 148/70 H 93 L 05/07/19 07:45 93 L 05/07/19 07:15 98 F 81 20 178/91 H 93 L Weight Weight 217 lb 11.2 oz I&O: 05/06/19 05/07/19 05/08/19 06:59 06:59 06:59 Output Total 1 Balance -1 Result Diagrams: 05/07/19 04:49 05/07/19 04:49 Additional Labs: Accuchecks 05/07/19 05/07/19 05/07/19 16:51 10:48 05:48 POC Glucose 190 H 123 H 222 H 05/06/19 19:43 POC Glucose 216 H Hospitalist ROS - Medication Medications: Active Medications Generic Name Dose Route Start Last Admin Trade Name Freq PRN Reason Stop Dose Admin Aspirin 81 mg 05/06/19 09:00 05/07/19 13:27 Aspirin Chewable PO Not Given DAILY [facility] Carvedilol 3.125 mg 05/04/19 21:00 05/07/19 13:28 Coreg PO Not Given BID [facility] Epoetin Sean-epbx 7,500 unit 05/04/19 09:00 05/04/19 11:13 Retacrit SC 7,500 unit Q7D RENA Administration Heparin Sodium (Porcine) 5,000 units 05/04/19 15:00 05/07/19 16:45 Heparin SC 5,000 units TID RENA Administration Ceftriaxone Sodium 1 gm/ 100 mls @ 200 mls/hr 05/04/19 05:00 05/07/19 04:07 Sodium Chloride IVPB 100 mls Q24HR RENA Administration Levetiracetam 500 mg/ Device 100 mls @ 200 mls/hr 05/05/19 21:00 05/07/19 13: 26 IVPB 100 mls BID RENA Administration Insulin Human Lispro 0 units 05/03/19 20:55 05/07/19 17:02 Humalog SC 2 unit .MODERATE SLIDING SC PRN Administration Moderate Correctional Scale Pantoprazole Sodium 40 mg 05/04/19 21:00 05/07/19 13:27 Protonix PO Not Given BID RENA Sodium Chloride 10 ml 05/05/19 21:00 05/07/19 07:15 Flush - Normal Saline IVF 10 ml Q12HR RENA Administration - Exam General - other findings: sleeping but rousable, somewhat interactive Eye: PERRL ENT: normocephalic atraumatic, moist mucosa Neck: supple, symmetric, no JVD Heart: RRR, no murmur, no gallops Respiratory: CTAB, no wheezes, no rales, no ronchi Gastrointestinal: soft, non-tender, non-distended, normal bowel sounds Extremities: no cyanosis, no clubbing, no edema Extremities - other findings: bilateral amputations with healed intact stumps Skin: no lesions, no rashes Neurological - other findings: altered mental status, baseline dementia Psychiatric - other findings: unable to evaluate Hosp A/P - Plan 79 year old male being treated for: # acute encephalopathy - suspected due to seizures, appreciate neurology evaluation, on [facility] for seizure prevention - improved with cessation of - appreciate specialist input # new onset seizure disorder - appreciate neurology, on [facility], MRI without gross abnormalities, monitor for symptoms # COPD - not in exacerbation, continue duoneb as needed # chronic hypoxic respiaratory failure - continue O2 supplementation as needed, on 2L at home # positive troponin - suspect supply demand mismatch, no chest pain, no EKG changes earlier this admission, continue to monitor # HTN - continue current meds, order PRNs for aberations # history of dementia - as above plan - hold sedating meds, reevaluate, continue seizure meds, follow response to changes next 1-2 days
--- NOTE | 2019-05-07 19:08 | PDOC.HOSPP ---
- Subjective Encounter Date: 05/07/19 Encounter Time: 19:06 Subjective: Patient in bed, no agitation, not requiring sedating meds, somewhat interactive. - Objective Vital Signs & Weight: Vital Signs (12 hours) Temp Pulse Resp BP Pulse Ox 05/07/19 15:11 98.5 F 82 20 138/75 94 L 05/07/19 12:12 98.2 F 80 20 148/70 H 93 L 05/07/19 07:45 93 L 05/07/19 07:15 98 F 81 20 178/91 H 93 L Weight Weight 217 lb 11.2 oz I&O: 05/06/19 05/07/19 05/08/19 06:59 06:59 06:59 Output Total 1 Balance -1 Result Diagrams: 05/07/19 04:49 05/07/19 04:49 Additional Labs: Accuchecks 05/07/19 05/07/19 05/07/19 16:51 10:48 05:48 POC Glucose 190 H 123 H 222 H 05/06/19 19:43 POC Glucose 216 H Hospitalist ROS - Medication Medications: Active Medications Generic Name Dose Route Start Last Admin Trade Name Freq PRN Reason Stop Dose Admin Aspirin 81 mg 05/06/19 09:00 05/07/19 13:27 Aspirin Chewable PO Not Given DAILY [facility] Carvedilol 3.125 mg 05/04/19 21:00 05/07/19 13:28 Coreg PO Not Given BID [facility] Epoetin Sean-epbx 7,500 unit 05/04/19 09:00 05/04/19 11:13 Retacrit SC 7,500 unit Q7D RENA Administration Heparin Sodium (Porcine) 5,000 units 05/04/19 15:00 05/07/19 16:45 Heparin SC 5,000 units TID [facility] Administration Ceftriaxone Sodium 1 gm/ 100 mls @ 200 mls/hr 05/04/19 05:00 05/07/19 04:07 Sodium Chloride IVPB 100 mls Q24HR RENA Administration Levetiracetam 500 mg/ Device 100 mls @ 200 mls/hr 05/05/19 21:00 05/07/19 13: 26 IVPB 100 mls BID RENA Administration Insulin Human Lispro 0 units 05/03/19 20:55 05/07/19 17:02 Humalog SC 2 unit .MODERATE SLIDING SC PRN Administration Moderate Correctional Scale Pantoprazole Sodium 40 mg 05/04/19 21:00 05/07/19 13:27 Protonix PO Not Given BID RENA Sodium Chloride 10 ml 05/05/19 21:00 05/07/19 07:15 Flush - Normal Saline IVF 10 ml Q12HR RENA Administration - Exam General Appearance: NAD, awake alert General - other findings: chronically ill and with baseline dementia Eye: PERRL ENT: normocephalic atraumatic, moist mucosa Neck: supple, no JVD Heart: RRR, no murmur, no gallops, no rubs Respiratory: CTAB, no wheezes, no rales, no ronchi Gastrointestinal: soft, non-tender, non-distended Extremities: no cyanosis, no clubbing, no edema Extremities - other findings: bilateral healed intact stumps Skin: no lesions, no rashes Neurological: no weakness Neurological - other findings: baseline dementia, no focal deficits observed Hosp A/P - Plan 79 year old male being treated for: # acute encephalopathy - no infections found, suspected due to seizures, no seizure activity observed since starting of keppra - appreciate neurology evalaution, continue keppra, MRI without gross abnormality - hold sedating medications, recieved antipsychotics early in admission and now improved, needing ativan during HD occasionally - 05/07: off of antipsychotics without significant improvement, neurology reports no objective signs of seizure, unknown reason for loss of mental capacity at this time, cortisol checked and appropriate, add on RPR/B12/TSH/ ammonia with AM labs, palliative care consult placed for today # new onset seizure disorder - as above # COPD - not in exacerbation, continue neb treatments PRN # chronic hypoxic respiratory failure - continue O2 as needed, on 2L at home # positive troponin - suspect supply demand mismatch, EKG without acute findings , no chest pain, monitor # HTN - continue current medications, PRNs for high BPs # history of dementia - as above # ESRD - appreciate nephrology Dr Sainz plan - avoid sedating meds, continue HD, keppra, monitor for seizure, palliative consult placed
[2019-05-08 05:05] LABS: Anion Gap 22 mmol/L (10-20); BUN (Urea Nitrogen) 43 mg/dL (8.4-25.7); Calc. Creatinine Clearance 16 mL/min (70-130); Calcium 10.1 mg/dL (7.8-10.44); Carbon Dioxide 24 mmol/L (23-31); Chloride 99 mmol/L (98-107); Estimated GFR-MDRD 11; Glucose 207 mg/dL (83-110); Potassium 4.6 mmol/L (3.5-5.1); Sodium 140 mmol/L (136-145)
[2019-05-08 05:07] LABS: ALT (SGPT) 11 U/L (8-55); AST (SGOT) 12 U/L (5-34); Alkaline Phosphatase 90 U/L (40-110); Bilirubin, Direct 0.2 mg/dL (0.1-0.3); Bilirubin, Total 0.4 mg/dL (0.2-1.2); Phosphorus 6.5 mg/dL (2.3-4.7); Protein, Total 7.9 g/dL (5.8-8.1)
[2019-05-08 05:21] LABS: Band 1 % (5-11); Hemoglobin 13.9 g/dL (14.0-18.0); Lymphocytes 22 % (21-51); MDiff Complete? YES; Mean Corpuscular Hemoglobin 31.9 pg (27.0-31.0); Mean Corpuscular Volume 99.8 fL (78.0-98.0); Mean Platelet Volume 8.4 fL (7.4-10.4); Monocytes 12 % (0-10); Neutrophil 65 % (42-75); Platelet Count 200 thou/uL (130-400); RBC Distribution Width 13.2 % (11.5-14.5); Red Blood Cell (RBC) Count 4.35 mill/uL (4.70-6.10); White Blood Cell (WBC) Count 8.8 thou/uL (4.8-10.8)
[2019-05-08 05:28] LABS: Thyroid Stimulating Hormone 3.1526 uIU/mL (0.35-4.94)
[2019-05-08 06:02] LABS: Syphilis Antibody Nonreactive (Nonreactive); Syphilis Antibody Index 0.08 S/CO (<1.00 Non-Reactive)
[2019-05-08] MEDS: HumaLOG 300 UNITS/3 ML VIAL SC PRN ×3 (06:22→17:10)
[2019-05-08] MEDS: Carvedilol 3.125 MG TAB PO SCH ×2 (09:01→22:32)
[2019-05-08] MEDS: Heparin 5,000 UNITS/ML VIAL SC SCH ×3 (09:02→22:32)
[2019-05-08] MEDS: Aspirin Chewable 81 MG TAB PO SCH (09:02)
--- NOTE | 2019-05-08 11:15 | PRG ---
DATE OF SERVICE: 05/08/2019 SUBJECTIVE: Mr. Mancera is an 79-year-old white male with ESRD and was admitted for mental status change. Currently being worked up by Neurology. ? of seizure. Other possibility was this was old drug induced from his underlying antipsychotic medications. No other problems. He is tolerating hemodialysis. He underwent treatment without any problem yesterday. OBJECTIVE: VITAL SIGNS: Blood pressure 143/64, heart rate 78, respiratory rate 20, temperature 98.3, and pulse ox 94%. GENERAL: The patient is awake, but somewhat drowsy. Not in distress. SKIN: Adequate turgor. HEENT: Pinkish conjunctivae. Anicteric sclerae. No neck mass. No carotid bruits. No JVD. CHEST: No deformities. LUNGS: Clear breath sounds. HEART: Normal sinus rhythm. No murmur. No gallops. No rubs. ABDOMEN: Globular, soft, nontender. No masses. EXTREMITIES: He has no edema on the thighs. He is status post right BKA, status post left AKA. MEDICATIONS: Of May 08, 2019, were reviewed. LABORATORY DATA: On May 08, 2019: Sodium 140, potassium 4.6, chloride 99, carbon dioxide 24, BUN 43, creatinine 4.91, glucose 207, calcium 10.1, phosphorus 6.5. AST 12, ALT 11. Vitamin B12 is 682. TSH 3.15. Hemoglobin 13.9. ASSESSMENT AND PLAN: 1. End-stage renal disease, stable, continuing current hemodialysis regimen. Fluid removal only as tolerated. 2. Hyperphosphatemia - we will start Renvela 800 mg one tablet t.i.d. with meals. 3. Mental status change, stable. Neurology is following. Currently on empiric antiseizure medications. Job ID: [id number]
[2019-05-08] MEDS: Sevelamer Carbonate 800 MG TAB PO SCH ×2 (12:01→16:19)
--- NOTE | 2019-05-08 19:53 | PDOC.HOSPP ---
- Subjective Encounter Date: 05/08/19 Encounter Time: 19:51 Subjective: CC: altered mental status subjective: perhaps a bit more interactive today, family at bedside after my visit know his baseline better than I do and they agreed, patient improved. no seizure like activity. - Objective Vital Signs & Weight: Vital Signs (12 hours) Temp Pulse Resp BP Pulse Ox 05/08/19 19:00 98.3 F 72 20 125/72 92 L 05/08/19 15:06 97.7 F 66 20 111/55 L 93 L 05/08/19 11:02 98 F 74 20 136/65 92 L 05/08/19 08:55 94 L Weight Weight 217 lb 11.2 oz I&O: 05/07/19 05/08/19 05/09/19 06:59 06:59 06:59 Intake Total 200 Balance 200 Result Diagrams: 05/08/19 04:37 05/08/19 04:37 Additional Labs: Accuchecks 05/08/19 05/08/19 05/08/19 16:43 10:52 05:57 POC Glucose 166 H 173 H 175 H 05/07/19 20:08 POC Glucose 159 H Hospitalist ROS - Medication Medications: Active Medications Generic Name Dose Route Start Last Admin Trade Name Freq PRN Reason Stop Dose Admin Aspirin 81 mg 05/06/19 09:00 05/08/19 09:02 Aspirin Chewable PO Not Given DAILY [facility] Carvedilol 3.125 mg 05/04/19 21:00 05/08/19 09:01 Coreg PO Not Given BID [facility] Epoetin Sean-epbx 7,500 unit 05/04/19 09:00 05/04/19 11:13 Retacrit SC 7,500 unit Q7D RENA Administration Heparin Sodium (Porcine) 5,000 units 05/04/19 15:00 05/08/19 16:02 Heparin SC 5,000 units TID RENA Administration Levetiracetam 500 mg/ Device 100 mls @ 200 mls/hr 05/05/19 21:00 05/08/19 09: 01 IVPB 100 mls BID RENA Administration Insulin Human Lispro 0 units 05/03/19 20:55 05/08/19 17:10 Humalog SC 2 unit .MODERATE SLIDING SC PRN Administration Moderate Correctional Scale Pantoprazole Sodium 40 mg 05/04/19 21:00 05/08/19 09:02 Protonix PO Not Given BID RENA Sevelamer Carbonate 800 mg 05/08/19 12:00 05/08/19 16:19 Renvela PO Not Given TID-WM RENA Sodium Chloride 10 ml 05/05/19 21:00 05/08/19 09:03 Flush - Normal Saline IVF 10 ml Q12HR RENA Administration Hosp A/P - Plan plan discussed w/ family Consults: Palliative Care 79 year old male being treated for: # acute encephalopathy - no infections found, suspected due to seizures, no seizure activity observed since starting of keppra - appreciate neurology evalaution, continue keppra, MRI without gross abnormality - hold sedating medications, recieved antipsychotics early in admission and now improved, needing ativan during HD occasionally - 05/07: off of antipsychotics without significant improvement, neurology reports no objective signs of seizure, unknown reason for loss of mental capacity at this time, cortisol checked and appropriate, add on RPR/B12/TSH/ ammonia with AM labs, palliative care consult placed for today - 05/08: all ordered labs appear normal, patient a bit improved, discussed case with family, perhaps this was all self limiting viral process? order viral PCR. this may be wishful thinking, patient without drastic improvement is only a bit better than yesterday. continue palliative discussion, may benefit patient to give a bit more time to see if he recovers with supportive care. had full infectious workup, neurologic workup and stopped all sedating meds, no further avenues I can think of to pursue at this time # new onset seizure disorder - as above # COPD - not in exacerbation, continue neb treatments PRN # chronic hypoxic respiratory failure - continue O2 as needed, on 2L at home # positive troponin - suspect supply demand mismatch, EKG without acute findings , no chest pain, monitor # HTN - continue current medications, PRNs for high BPs # history of dementia - as above # ESRD - appreciate nephrology Dr Sainz plan - avoid sedating meds, continue HD, keppra, monitor for seizure, palliative consult placed Exam - Exam Vital Signs: Vital Signs Temp Pulse Resp BP BP BP Pulse Ox 05/08/19 19:00 98.3 F 72 20 125/72 92 L 05/08/19 15:06 97.7 F 66 20 111/55 L 93 L 05/08/19 11:02 98 F 74 20 136/65 92 L 05/08/19 08:55 94 L 05/08/19 07:11 98.3 F 78 20 143/64 H 94 L 05/08/19 04:05 99.1 F 68 20 107/52 L 97 05/07/19 23:58 98.9 F 80 22 H 149/70 H 92 L 05/07/19 20:00 98.7 F 82 16 154/72 H 97 05/07/19 15:11 98.5 F 82 20 138/75 94 L 05/07/19 12:12 98.2 F 80 20 148/70 H 93 L 05/07/19 07:45 93 L 05/07/19 07:15 98 F 81 20 178/91 H 93 L 05/07/19 03:30 97.9 F 83 18 184/79 H 93 L 05/06/19 23:10 97.4 F L 84 18 140/73 94 L 05/06/19 19:05 98.5 F 85 18 135/88 94 L 05/06/19 15:21 98.0 F 84 20 187/83 H 94 L 05/06/19 11:25 97.9 F 75 18 181/79 H 94 L 05/06/19 03:33 98 F 79 20 135/67 96 05/05/19 23:23 98.5 F 75 20 157/71 H 95 05/05/19 19:40 98.6 F 80 20 175/77 H 98 05/05/19 15:48 98.2 F 83 18 167/74 H 96 05/05/19 11:05 97.7 F 82 17 125/58 L 97 05/05/19 07:37 97.9 F 73 16 184/80 H 93 L 05/05/19 03:25 98.9 F 73 18 171/79 H 97 05/05/19 01:34 71 160/74 H 05/04/19 23:05 98.2 F 96 18 187/82 H 96 05/04/19 19:15 74 18 195/86 H 98 05/04/19 15:31 98.4 F 63 18 177/73 H 98 05/04/19 11:45 98.6 F 62 16 150/65 H 98 05/04/19 07:44 98.4 F 65 18 125/58 L 96 05/04/19 04:00 97.5 F L 61 20 121/56 L 95 05/04/19 00:00 97.8 F 62 20 134/60 99 05/03/19 21:57 98.2 F 64 20 138/61 97 Height 6 ft 2 in Weight 217 lb 11.2 oz Body Mass Index (BMI) 27.9 - Vital Signs Vital Signs: Vital Signs (12 hours) Temp Pulse Resp BP Pulse Ox 05/08/19 19:00 98.3 F 72 20 125/72 92 L 05/08/19 15:06 97.7 F 66 20 111/55 L 93 L 05/08/19 11:02 98 F 74 20 136/65 92 L 05/08/19 08:55 94 L Weight Weight 217 lb 11.2 oz Exam - Exam Vital Signs: Vital Signs (72 hours) 05/05/19 05/06/19 05/06/19 23:23 03:33 11:25 Temperature 98.5 F 98 F 97.9 F Pulse Rate 75 79 75 Respiratory 20 20 18 Rate Blood Pressure [Semi-Fowlers] Blood Pressure 157/71 H 135/67 181/79 H [Supine] O2 Sat by Pulse 95 96 94 L Oximetry 05/06/19 05/06/19 05/06/19 15:21 19:05 23:10 Temperature 98.0 F 98.5 F 97.4 F L Pulse Rate 84 85 84 Respiratory 20 18 18 Rate Blood Pressure 135/88 140/73 [Semi-Fowlers] Blood Pressure 187/83 H [Supine] O2 Sat by Pulse 94 L 94 L 94 L Oximetry 05/07/19 05/07/19 05/07/19 03:30 07:15 07:45 Temperature 97.9 F 98 F Pulse Rate 83 81 Respiratory 18 20 Rate Blood Pressure 184/79 H [Semi-Fowlers] Blood Pressure 178/91 H [Supine] O2 Sat by Pulse 93 L 93 L 93 L Oximetry 05/07/19 05/07/19 05/07/19 12:12 15:11 20:00 Temperature 98.2 F 98.5 F 98.7 F Pulse Rate 80 82 82 Respiratory 20 20 16 Rate Blood Pressure [Semi-Fowlers] Blood Pressure 148/70 H 138/75 154/72 H [Supine] O2 Sat by Pulse 93 L 94 L 97 Oximetry 05/07/19 05/08/19 05/08/19 23:58 04:05 07:11 Temperature 98.9 F 99.1 F 98.3 F Pulse Rate 80 68 78 Respiratory 22 H 20 20 Rate Blood Pressure [Semi-Fowlers] Blood Pressure 149/70 H 107/52 L 143/64 H [Supine] O2 Sat by Pulse 92 L 97 94 L Oximetry 05/08/19 05/08/19 05/08/19 08:55 11:02 15:06 Temperature 98 F 97.7 F Pulse Rate 74 66 Respiratory 20 20 Rate Blood Pressure [Semi-Fowlers] Blood Pressure 136/65 111/55 L [Supine] O2 Sat by Pulse 94 L 92 L 93 L Oximetry 05/08/19 19:00 Temperature 98.3 F Pulse Rate 72 Respiratory 20 Rate Blood Pressure [Semi-Fowlers] Blood Pressure 125/72 [Supine] O2 Sat by Pulse 92 L Oximetry Objective - Exam Vitals and I&O: Vital Signs Temp 98.3 F 05/08/19 19:00 Pulse 72 05/08/19 19:00 Resp 20 05/08/19 19:00 BP 125/72 05/08/19 19:00 Pulse Ox 92 L 05/08/19 19:00 Intake & Output 05/08/19 05/08/19 05/09/19 06:59 18:59 06:59 Intake Total 200 Balance 200 Intake: Intake, IV Amount 200 Other: Voiding Method Diaper # Unmeasured Voids 2 # Urine Diapers 2 1 Other physical findings: General Appearance: NAD, awake alert General - other findings: chronically ill and with baseline dementia Eye: PERRL ENT: normocephalic atraumatic, moist mucosa Neck: supple, no JVD Heart: RRR, no murmur, no gallops, no rubs Respiratory: CTAB, no wheezes, no rales, no ronchi Gastrointestinal: soft, non-tender, non-distended Extremities: no cyanosis, no clubbing, no edema Extremities - other findings: bilateral healed intact stumps Skin: no lesions, no rashes Neurological: no weakness Neurological - other findings: baseline dementia, no focal deficits observed - Results Results: Laboratory Results WBC 8.8 thou/uL (4.8-10.8) 05/08/19 04:37 RBC 4.35 mill/uL (4.70-6.10) L 05/08/19 04:37 Hgb 13.9 g/dL (14.0-18.0) L 05/08/19 04:37 Hct 43.4 % (42.0-52.0) 05/08/19 04:37 MCV 99.8 fL (78.0-98.0) H 05/08/19 04:37 MCH 31.9 pg (27.0-31.0) H 05/08/19 04:37 MCHC 32.0 g/dL (32.0-36.0) 05/08/19 04:37 RDW 13.2 % (11.5-14.5) 05/08/19 04:37 Plt Count 200 thou/uL (130-400) 05/08/19 04:37 MPV 8.4 fL (7.4-10.4) 05/08/19 04:37 Neutrophils % 72.6 % (42.0-75.0) 05/07/19 04:49 Neutrophils % (Manual) 65 % (42-75) 05/08/19 04:37 Band Neuts % (Manual) 1 % (5-11) L 05/08/19 04:37 Lymphocytes % 14.3 % (21.0-51.0) L 05/07/19 04:49 Lymphocytes % (Manual) 22 % (21-51) 05/08/19 04:37 Monocytes % 12.4 % (0.0-10.0) H 05/07/19 04:49 Monocytes % (Manual) 12 % (0-10) H 05/08/19 04:37 Eosinophils % 0.4 % (0.0-10.0) 05/07/19 04:49 Eosinophils % (Manual) 2 % (0-10) 05/06/19 04:43 Basophils % 0.3 % (0.0-1.0) 05/07/19 04:49 Neutrophils # 7.2 thou/uL (1.40-6.50) H 05/07/19 04:49 Lymphocytes # 1.4 thou/uL (1.20-3.40) 05/07/19 04:49 Monocytes # 1.2 thou/uL (0.11-0.59) H 05/07/19 04:49 Eosinophils # 0.0 thou/uL (0.0-0.7) 05/07/19 04:49 Basophils # 0.0 thou/uL (0.0-0.2) 05/07/19 04:49 Nucleated RBCs # (Man) 1 % (0) H 05/06/19 04:43 Hypochromia SLIGHT = 6-15 cells (100X) (0-5/hpf) 05/05/19 04:37 Plt Morphology Comment Appears Adequate 05/06/19 04:43 Specimen Type ARTERIAL 05/04/19 12:30 Puncture Site RR 05/04/19 12:30 Bicarbonate Actual 27.0 mEq/L (22-28) 05/04/19 12:30 ABG pH 7.38 (7.35-7.45) 05/04/19 12:30 ABG pCO2 46.5 mmHg (35.0-45.0) H 05/04/19 12:30 ABG pO2 92.0 mmHg (> 60.0) H 05/04/19 12:30 ABG O2 Sat Calc/John 97.2 % (94.0-98.0) 05/04/19 12:30 ABG O2 Content 18.1 vol% (18.0-21.0) 05/04/19 12:30 ABG Base Excess 1.3 mEq/L (-2.0 to +3.0) 05/04/19 12:30 ABG Hematocrit 39.0 % (42.0-52.0) L 05/04/19 12:30 ABG Hemoglobin 13.4 g/dL (14.0-18.0) L 05/04/19 12:30 ABG Oxyhemoglobin 95.7 % (94.0-98.0) 05/04/19 12:30 ABG Carboxyhemoglobin 1.2 gm% (0.0-3.0) 05/04/19 12:30 ABG Methemoglobin 0.30 gm% (0.04-1.52) 05/04/19 12:30 ABG Deoxyhemoglobin 2.8 % (0.0-2.9) 05/04/19 12:30 Vijay Test POSITIVE 05/04/19 12:30 Sodium 134 mmol/L (135-148) L 05/04/19 12:30 Potassium 4.68 mmol/L (3.70-5.30) 05/04/19 12:30 Chloride 96 mmol/L (98-106) L 05/04/19 12:30 Ionized Calcium 1.11 mmol/L (1.12-1.30) L 05/04/19 12:30 Mode of Support NC 2L/M 05/04/19 12:30 Spontaneous Rate 20 min 05/04/19 12:30 Sodium 140 mmol/L (136-145) 05/08/19 04:37 Potassium 4.6 mmol/L (3.5-5.1) 05/08/19 04:37 Chloride 99 mmol/L (98-107) 05/08/19 04:37 Carbon Dioxide 24 mmol/L (23-31) 05/08/19 04:37 Anion Gap 22 mmol/L (10-20) H 05/08/19 04:37 BUN 43 mg/dL (8.4-25.7) H 05/08/19 04:37 Creatinine 4.91 mg/dL (0.7-1.3) H 05/08/19 04:37 Estimated GFR (MDRD) 11 05/08/19 04:37 Glucose 207 mg/dL (83-110) H 05/08/19 04:37 POC Glucose 166 mg/dL (70-110) H 05/08/19 16:43 Lactic Acid 1.4 mmol/L (0.5-2.2) 05/05/19 16:44 Calcium 10.1 mg/dL (7.8-10.44) 05/08/19 04:37 Phosphorus 6.5 mg/dL (2.3-4.7) H 05/08/19 04:37 Total Bilirubin 0.4 mg/dL (0.2-1.2) 05/08/19 04:37 Direct Bilirubin 0.2 mg/dL (0.1-0.3) 05/08/19 04:37 AST 12 U/L (5-34) 05/08/19 04:37 ALT 11 U/L (8-55) 05/08/19 04:37 Alkaline Phosphatase 90 U/L (40-110) 05/08/19 04:37 Ammonia 16 umol/L (18-72) L 05/08/19 04:36 CK-MB (CK-2) 2.2 ng/mL (0-6.6) 05/03/19 17:45 Troponin I 0.048 ng/mL (< 0.028) H 05/04/19 00:05 Serum Total Protein 7.9 g/dL (5.8-8.1) 05/08/19 04:37 Albumin 4.0 g/dL (3.4-4.8) 05/08/19 04:37 Globulin 3.7 g/dL (2.4-3.5) H 05/03/19 17:45 Albumin/Globulin Ratio 1.2 g/dL (1.2-2.2) 05/03/19 17:45 Vitamin B12 682 pg/mL (211-911) 05/08/19 04:37 TSH 3rd Generation 3.1526 uIU/mL (0.35-4.94) 05/08/19 04:37 Cortisol 20.10 ug/dL (See Ranges) 05/07/19 09:25 Urine Color Yellow (Yellow) 05/04/19 08:15 Urine Clarity Clear (Clear) 05/04/19 08:15 Urine pH 6.0 (5.0-9.0) 05/04/19 08:15 Ur Specific [place] 1.018 (1.002-1.036) 05/04/19 08:15 Urine Protein 300 mg/dL (Neg-Trace) A 05/04/19 08:15 Urine Glucose (UA) 100 mg/dL (Negative) A 05/04/19 08:15 Urine Ketones Negative mg/dL (Negative) 05/04/19 08:15 Urine Blood Trace (Negative) A 05/04/19 08:15 Urine Nitrite Negative (Negative) 05/04/19 08:15 Urine Bilirubin Negative (Negative) 05/04/19 08:15 Urine Urobilinogen Normal mg/dL (Less than 2) 05/04/19 08:15 Ur Leukocyte Esterase Negative Maddie/uL (Negative) 05/04/19 08:15 Urine RBC 0-3 HPF (0-3) 05/04/19 08:15 Urine WBC 0-3 HPF (0-3) 05/04/19 08:15 Ur Squamous Epith Cells 0-3 HPF (0-3) 05/04/19 08:15 Urine Bacteria 1+ HPF (None Seen) A 05/04/19 08:15 Hyaline Casts 7-10 LPF (0-3) A 05/04/19 08:15 Syphilis IgG/IgM Ab Nonreactive (Nonreactive) 05/08/19 04:37
[2019-05-09] MEDS: HumaLOG 300 UNITS/3 ML VIAL SC PRN ×3 (06:39→17:20)
[2019-05-09] MEDS: Heparin 5,000 UNITS/ML VIAL SC SCH ×3 (09:36→20:34)
[2019-05-09] MEDS: Aspirin Chewable 81 MG TAB PO SCH (09:37)
[2019-05-09] MEDS: Carvedilol 3.125 MG TAB PO SCH ×2 (09:37→20:35)
[2019-05-09] MEDS: Sevelamer Carbonate 800 MG TAB PO SCH ×3 (09:37→17:04)
--- NOTE | 2019-05-09 11:06 | PRG ---
DATE OF SERVICE: 05/09/2019 SUBJECTIVE: Mr. Mancera is an 79-year-old white male with known history of ESRD, admitted for mental status change. Neurological workup has been done. He is being empirically treated for possible seizure. No new complaints today. He underwent hemodialysis last Friday and did well. Still occasionally confused. No complaints of chest pain or shortness of breath. OBJECTIVE: VITAL SIGNS: Blood pressure is 145/83, heart rate 77, respiratory rate 18, temperature 98.4, and pulse ox 95%. GENERAL: Noted to be awake, alert, comfortable, not in overt distress. SKIN: Adequate turgor. HEENT: He has a pinkish conjunctivae. Anicteric sclerae. NECK: No neck mass. No carotid bruits. No JVD. CHEST: No deformities. LUNGS: Clear breath sounds. No wheezing. No crackles. HEART: Normal sinus rhythm. No murmur. No gallops. No rubs. ABDOMEN: Globular, soft, and nontender. No masses. EXTREMITIES: No edema. 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 MEDICATIONS: Medications of May 09, 2019, reviewed. LABORATORY: Laboratories of May 08, 2019; white count 8.8, hemoglobin 13.9. On May 09, 2019, glucose 185. ASSESSMENT AND PLAN: 1. End-stage renal disease, stable. We will continue current hemodialysis regimen of Friday, Friday, and Friday. Again, fluid removal only as tolerated. 2. Confusion/disorientation - empiric seizure medication being given. In addition, the patient most likely has underlying dementia. Neurology following. Agree with current management. Job ID: [id number]
--- NOTE | 2019-05-09 17:07 | PDOC.HOSPP ---
- Subjective Subjective: Seen and examined. Patient is new to me, discussed with nursing staff and speech therapist to tell me that he is improved today. When I interview him he makes no words, though oriented to self and birthdate per staff. Patient remains on safe for her swallowing per speech therapy, starting ice chips. Consider pleasure feeding despite aspiration risks if the patient and family are going to proceed with hospice/palliative care. - Objective Vital Signs & Weight: Vital Signs (12 hours) Temp Pulse Resp BP BP BP Pulse Ox 05/09/19 15:35 97.6 F 75 16 174/80 H 92 L 05/09/19 11:43 98.1 F 75 18 166/70 H 92 L 05/09/19 09:02 171/78 H 174/78 H 05/09/19 08:05 92 L 05/09/19 07:52 98.4 F 77 18 145/83 H 95 Weight Weight 217 lb 11.2 oz I&O: 05/08/19 05/09/19 05/10/19 06:59 06:59 06:59 Intake Total 200 100 0 Balance 200 100 0 Result Diagrams: 05/08/19 04:37 05/08/19 04:37 Additional Labs: Accuchecks 05/09/19 05/09/19 05/08/19 10:40 06:00 20:01 POC Glucose 184 H 185 H 155 H Radiology Reviewed by me: Yes Hospitalist ROS - Review of Systems ROS unobtainable: due to mental status - Medication Medications: Active Medications Generic Name Dose Route Start Last Admin Trade Name Freq PRN Reason Stop Dose Admin Aspirin 81 mg 05/06/19 09:00 05/09/19 09:37 Aspirin Chewable PO Not Given DAILY [facility] Carvedilol 3.125 mg 05/04/19 21:00 05/09/19 09:37 Coreg PO Not Given BID RENA Epoetin Sean-epbx 7,500 unit 05/04/19 09:00 05/04/19 11:13 Retacrit SC 7,500 unit Q7D RENA Administration Heparin Sodium (Porcine) 5,000 units 05/04/19 15:00 05/09/19 15:44 Heparin SC 5,000 units TID RENA Administration Levetiracetam 500 mg/ Device 100 mls @ 200 mls/hr 05/05/19 21:00 05/09/19 09: 35 IVPB 100 mls BID RENA Administration Insulin Human Lispro 0 units 05/03/19 20:55 05/09/19 12:34 Humalog SC 2 unit .MODERATE SLIDING SC PRN Administration Moderate Correctional Scale Sevelamer Carbonate 800 mg 05/08/19 12:00 05/09/19 17:04 Renvela PO Not Given TID-WM RENA Sodium Chloride 10 ml 05/05/19 21:00 05/09/19 09:37 Flush - Normal Saline IVF 10 ml Q12HR RENA Administration - Exam General Appearance: NAD Eye: PERRL, anicteric sclera ENT: normocephalic atraumatic, moist mucosa Neck: supple, symmetric, no lymphadenopathy Heart: no murmur, no gallops, no rubs Respiratory: CTAB, no wheezes, no rales, no ronchi, normal chest expansion Gastrointestinal: soft, non-tender, non-distended, no guarding, no rigidity Skin: no lesions, no rashes Neurological: cranial nerve grossly intact, normal sensation to touch Musculoskeletal: no muscle wasting Psychiatric: flat affect Hosp A/P (1) Anemia due to acute blood loss Code(s): D62 - ACUTE POSTHEMORRHAGIC ANEMIA Status: Resolved (2) GI bleed Code(s): K92.2 - GASTROINTESTINAL HEMORRHAGE, UNSPECIFIED Status: Resolved (3) Volume overload Code(s): E87.70 - FLUID OVERLOAD, UNSPECIFIED Status: Resolved (4) Amputation leg, bilat Code(s): S88.911A - COMPLETE TRAUMATIC AMPUTATION OF R LOW LEG, LEVEL UNSP, INIT ; S88.912A - COMPLETE TRAUMATIC AMPUTATION OF L LOW LEG, LEVEL UNSP, INIT Status: Chronic (5) Anemia, normocytic normochromic Code(s): D64.9 - ANEMIA, UNSPECIFIED Status: Chronic (6) CAD (coronary artery disease) Code(s): I25.10 - ATHSCL HEART DISEASE OF [place] CORONARY ARTERY W/O ANG PCTRS Status: Chronic (7) Chronic combined systolic and diastolic CHF (congestive heart failure) Code(s): I50.42 - CHRONIC COMBINED SYSTOLIC AND DIASTOLIC HRT FAIL Status: Chronic (8) Dementia Code(s): F03.90 - UNSPECIFIED DEMENTIA WITHOUT BEHAVIORAL DISTURBANCE Status: Chronic Qualifiers: (9) Diabetes mellitus type 2 in obese Code(s): E11.69 - TYPE 2 DIABETES MELLITUS WITH OTHER SPECIFIED COMPLICATION; E66.9 - OBESITY, UNSPECIFIED Status: Chronic (10) ESRD (end stage renal disease) on dialysis Code(s): N18.6 - END STAGE RENAL DISEASE; Z99.2 - DEPENDENCE ON RENAL DIALYSIS Status: Chronic (11) HLD (hyperlipidemia) Code(s): E78.5 - HYPERLIPIDEMIA, UNSPECIFIED Status: Chronic Qualifiers: (12) HTN (hypertension) Code(s): I10 - ESSENTIAL (PRIMARY) HYPERTENSION Status: Chronic Qualifiers: (13) PVD (peripheral vascular disease) Code(s): I73.9 - PERIPHERAL VASCULAR DISEASE, UNSPECIFIED Status: Chronic (14) Hypotension Status: Resolved - Plan Plan: Medical unit with telemetry neurology consultation, recommendations appreciated nephrology consultation, recommendations appreciated palliative care consultation, recommendations appreciated altered mental status is reportedly improved since starting antiepileptic drug MRI the brain with chronic white matter changes in 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
[2019-05-09] MEDS: Pantoprazole 40 MG VIAL IVP SCH (20:35)
[2019-05-09] MEDS: D5W-AA 4.25% with LYTES 1,000 ML BAG IV SCH (20:43)
[2019-05-10] MEDS: HumaLOG 300 UNITS/3 ML VIAL SC PRN ×2 (06:35→18:15)
--- NOTE | 2019-05-10 08:16 | PRG ---
DATE OF SERVICE: 05/10/2019 SUBJECTIVE: Mr. Mancera is an 79-year-old white male with ESRD and currently on maintenance hemodialysis. He still is intermittently confused. Currently, the family is considering hospital/palliative care. No new complaints today. No chest pain or shortness of breath. OBJECTIVE: VITAL SIGNS: Blood pressure 148/70, heart rate 73, respiratory rate 16, temperature 97.8, and pulse oximetry 91%. GENERAL: The patient is awake, somewhat confused, not in distress, obese. SKIN: Adequate turgor. HEENT: He has a pinkish conjunctivae. Anicteric sclerae. No neck mass. No carotid bruits. No JVD. CHEST: No deformities. LUNGS: Clear breath sounds. No wheezing. No crackles. HEART: Normal sinus rhythm. No murmurs, gallops, or rubs. ABDOMEN: Globular, soft, nontender. No masses. EXTREMITIES: Bilateral leg amputations. MEDICATIONS: Medications of May 10, 2019, was reviewed. LABORATORY DATA: Laboratories of May 08, 2019; white count 8.8, hemoglobin 13.9. May 10, 2019, glucose 214. ASSESSMENT AND PLAN: 1. End stage renal disease, stable. Continue current Friday, Friday, and Friday hemodialysis. Again, fluid removal only as tolerated. 2. Anemia, on maintenance Epogen. Stable. 3. Confusion, secondary to a presumed dementia. 4. Question of aspiration - conservative management, and possibility of palliative care. 5. Overall agree with current management. 6. Recheck basic metabolic panel and CBC in a.m. Job ID: [id number]
[2019-05-10] MEDS: Sevelamer Carbonate 800 MG TAB PO SCH ×3 (08:39→16:43)
[2019-05-10] MEDS: Ziprasidone 20 MG VIAL IM PRN (08:56)
[2019-05-10] MEDS: Heparin 5,000 UNITS/ML VIAL SC SCH ×3 (12:19→22:00)
[2019-05-10] MEDS: Aspirin Chewable 81 MG TAB PO SCH (12:20)
[2019-05-10] MEDS: Pantoprazole 40 MG VIAL IVP SCH ×2 (12:20→22:00)
[2019-05-10] MEDS: Carvedilol 3.125 MG TAB PO SCH ×2 (12:20→22:00)
[2019-05-10] MEDS ORDERED: Heparin 10,000 UNITS/ 10 ML VIAL ONE (13:19)
--- NOTE | 2019-05-10 13:44 | PDOC.HOSPP ---
- Subjective Encounter Date: 05/10/19 Encounter Time: 13:30 Subjective: f/u for persistent encephalopathy likely multifactorial including ESRD, uremia, dementia and clinical decline. Remains NPO with family wishing to pursue PEG placement and palliative measures. PPN initiated today. - Objective Vital Signs & Weight: Vital Signs (12 hours) Temp Pulse Resp BP BP Pulse Ox 05/10/19 12:33 98.3 F 73 20 149/70 H 93 L 05/10/19 07:05 97.8 F 73 16 148/70 H 91 L 05/10/19 05:20 152/89 H 05/10/19 04:00 97.2 F L 74 20 176/104 H 92 L Weight Weight 188 lb 7.924 oz I&O: 05/09/19 05/10/19 05/11/19 06:59 06:59 06:59 Intake Total 100 600.4 Output Total 1000 Balance 100 600.4 -1000 Result Diagrams: 05/08/19 04:37 05/08/19 04:37 Additional Labs: Accuchecks 05/10/19 05/10/19 05/09/19 12:21 06:00 19:51 POC Glucose 146 H 214 H 191 H 05/09/19 16:41 POC Glucose 229 H Microbiology 05/08/19 12:48 Nasopharyngeal swab Respiratory Virus Panel (PCR) - Final 05/03/19 11:24 Nasopharyngeal swab Respiratory Panel (PCR) - Final EKG Reviewed by me: Yes (Tele - SR) Hospitalist ROS - Medication Medications: Active Medications Generic Name Dose Route Start Last Admin Trade Name Freq PRN Reason Stop Dose Admin Amino Acids/Electrolytes/Dextrose 1,000 ml 05/09/19 17:15 05/09/19 20:43 Clinimix E 4.25/5 IV 1,000 ml INF RENA Administration Aspirin 81 mg 05/06/19 09:00 05/10/19 12:20 Aspirin Chewable PO Not Given DAILY [facility] Carvedilol 3.125 mg 05/04/19 21:00 05/10/19 12:20 Coreg PO Not Given BID [facility] Epoetin Sean-epbx 7,500 unit 05/04/19 09:00 05/04/19 11:13 Retacrit SC 7,500 unit Q7D RENA Administration Heparin Sodium (Porcine) 5,000 units 05/04/19 15:00 05/10/19 12:19 Heparin SC Not Given TID RENA Levetiracetam 500 mg/ Device 100 mls @ 200 mls/hr 05/05/19 21:00 05/10/19 12: 19 IVPB 100 mls BID RENA Administration Insulin Human Lispro 0 units 05/03/19 20:55 05/10/19 06:35 Humalog SC 4 unit .MODERATE SLIDING SC PRN Administration Moderate Correctional Scale Pantoprazole Sodium 40 mg 05/09/19 21:00 05/10/19 12:20 Protonix IVP 40 mg Q12HR RENA Administration Sevelamer Carbonate 800 mg 05/08/19 12:00 05/10/19 12:21 Renvela PO Not Given TID-WM RENA Sodium Chloride 10 ml 05/05/19 21:00 05/10/19 12:21 Flush - Normal Saline IVF 10 ml Q12HR RENA Administration Sterile Water 1.2 ml 05/04/19 04:00 05/10/19 08:56 Water For Injection FS 1.2 ml PRN PRN Administration RECONSTITUTION Ziprasidone 10 mg 05/04/19 03:55 05/10/19 08:56 Geodon IM 10 mg Q2H PRN Administration Agitation - Exam General Appearance: awake alert General - other findings: mumbles a few words, moves extremities voluntarily Eye: PERRL, anicteric sclera ENT: normocephalic atraumatic, dry oral mucosa Neck: supple, symmetric, no JVD, no thyromegaly Heart: RRR, no murmur, no gallops, no rubs Respiratory: no wheezes Respiratory - other findings: few scattered coarse sounds bilat Gastrointestinal: soft, non-tender, non-distended, normal bowel sounds, no palpable masses Gastrointestinal - other findings: obese Extremities: no cyanosis, no clubbing Extremities - other findings: L AKA, R BKA Skin: normal turgor, no lesions Neurological: no new deficit Musculoskeletal: generalized weakness Psychiatric: oriented to person Hosp A/P (1) Acute metabolic encephalopathy Code(s): G93.41 - METABOLIC ENCEPHALOPATHY Status: Acute Plan: Likely multifactorial including co-morbid medical conditions, uremia, psychotropic meds, dementia, institutionalized, poor overall prognosis (2) Dysphagia Code(s): R13.10 - DYSPHAGIA, UNSPECIFIED Status: Acute Qualifiers: Dysphagia type: oropharyngeal phase Qualified Code(s): R13.12 - Dysphagia, oropharyngeal phase Plan: Family wishing to pursue PEG tube placement, continue PPN pending placement (3) CAD (coronary artery disease) Code(s): I25.10 - ATHSCL HEART DISEASE OF [place] CORONARY ARTERY W/O ANG PCTRS Status: Chronic Plan: Chronic, stable (4) Dementia Code(s): F03.90 - UNSPECIFIED DEMENTIA WITHOUT BEHAVIORAL DISTURBANCE Status: Chronic Qualifiers: Plan: Supportive mgmt, limit psychotropes as clinically able (5) Diabetes mellitus type 2 in obese Code(s): E11.69 - TYPE 2 DIABETES MELLITUS WITH OTHER SPECIFIED COMPLICATION; E66.9 - OBESITY, UNSPECIFIED Status: Chronic Plan: Insulin regimen on hold given NPO due to dysphagia, will resume after PEG placement (6) ESRD (end stage renal disease) on dialysis Code(s): N18.6 - END STAGE RENAL DISEASE; Z99.2 - DEPENDENCE ON RENAL DIALYSIS Status: Chronic Plan: HD per Renal service (7) Amputation leg, bilat Code(s): S88.911A - COMPLETE TRAUMATIC AMPUTATION OF R LOW LEG, LEVEL UNSP, INIT ; S88.912A - COMPLETE TRAUMATIC AMPUTATION OF L LOW LEG, LEVEL UNSP, INIT Status: Chronic - Plan PT/OT, supervisor ship maintenance services, speech therapy, respiratory therapy, DVT proph w/SCDs Continue supportive mgmt Resume Gabapentin Consult GI regarding PEG placement Continue ASA AM lab: BMP, CBC Code Status: DNAR
[2019-05-10 15:16] VITALS: BMI 24.8
[2019-05-10] MEDS: Gabapentin 100 MG CAP PO SCH ×2 (15:17→22:00)
--- NOTE | 2019-05-10 15:38 | CON ---
DATE OF CONSULTATION: 05/10/2019 REQUESTING PHYSICIAN: Ry Alas REASON FOR CONSULTATION: Dysphagia, requesting PEG tube placement. HISTORY OF PRESENT ILLNESS: Amrik Mancera is an 79-year-old man, previously seen by my GI colleague, Dr. Mckay Mckeon. He has a history significant for end-stage renal disease, on dialysis, systolic heart failure, peripheral vascular disease, and dementia. He had a diverticular bleed and was hospitalized for this back in October 2018. At that time, he had an incomplete colonoscopy, negative tagged RBC scan and also EGD demonstrating a 2-cm short-segment Herrera's esophagus and a 2-cm hiatal hernia, but otherwise normal EGD. The patient has been hospitalized here for the past week, admitted on 05/03/2019, with progressive encephalopathy and altered mental status. During this time, he has been unable to swallow, speech pathology recommendation is that he is not safe for any oral intake. After extensive discussions, the patient's family has requested to proceed with PEG tube placement. REVIEW OF SYSTEMS: Full review of systems is unable to be obtained due to the patient's altered mental status. PAST MEDICAL HISTORY: Hypertension, diabetes, end-stage renal disease, dementia, chronic anemia, systolic CHF, bilateral BKA, and peripheral vascular disease. ALLERGIES: ACETAMINOPHEN, HYDROCODONE, AND AMBIEN. SOCIAL HISTORY: The patient has resided in the group home for the past 2 years. No tobacco or alcohol use. His medical power of consumer attorney is Ying Harris and her number is [phone]. FAMILY HISTORY: Noncontributory. MEDICATIONS: 1. Erythropoietin. 2. Insulin sliding scale. 3. Pantoprazole 40 mg IV q.12 hours. 4. Keppra. 5. Geodon. PHYSICAL EXAMINATION: VITAL SIGNS: Temperature 98.3, pulse 73, blood pressure 149/70, and oxygen saturation 93% on room air. GENERAL: An 79-year-old man, lying in bed, comfortably, in no distress. MENTAL: He is asleep, not really arousable to voice. He does withdraw to tactile stimuli. Does not communicate meaningfully at all. SKIN: No jaundice. No rashes were palpable. EYES: No scleral icterus. ENT: Mucous membranes moist. LYMPH: No submandibular or supraclavicular lymphadenopathy. THYROID: Nontender to palpation. HEART: Regular rate and rhythm. LUNGS: Clear to auscultation bilaterally. ABDOMEN: Nondistended. Bowel sounds are present. Soft and nontender to palpation. There is what appears to be a sternotomy scar and perhaps laparoscopic incisions on the right side of the abdomen, but no surgical scars in the left upper quadrant. EXTREMITIES: THE patient is status post bilateral lower extremity amputations. No edema. VESSELS: Radial pulses 2+ bilaterally. NEURO: The patient does not follow commands. LABORATORY STUDIES: WBC 8.8, hemoglobin 13.9, and platelets 200. Glucose 146. Vitamin B12 of 682. TSH 3.15. LFTs all normal. Ammonia only 16. Sodium 140, potassium 4.6, BUN 43, and creatinine 4.91. Syphilis serology negative. Urinalysis negative. IMAGING STUDIES: Brain MRI from 05/05/2019, demonstrates no acute abnormality. There is chronic microvascular ischemic changes and hemosiderin deposition related to remote infarction of the right basal ganglia. There is compensatory dilation of the ventricular system due to parenchymal atrophy. ASSESSMENT AND PLAN: 1. Oropharyngeal dysphagia. 2. Malnutrition. I had a long discussion over the phone with the patient's medical power of consumer attorney regarding PEG tube placement. This does not eliminate the risk for aspiration. It is probably the best long-term solution for nutritional delivery. I explained the potential risks of the procedure as well as potential benefits, and she desires for me to proceed. We will schedule PEG tube placement for tomorrow. Job ID: [id number]
[2019-05-10] MEDS: D5W-AA 4.25% with LYTES 1,000 ML BAG IV SCH (22:06)
[2019-05-11 05:05] LABS: #Eosinphils 0.2 thou/uL (0.0-0.7); #Lymphocytes 1.7 thou/uL (1.20-3.40); #Neutrophils 4.4 thou/uL (1.40-6.50); %Basophils 0.6 % (0.0-1.0); %Eosinophils 3.1 % (0.0-10.0); %Lymphocytes 23.5 % (21.0-51.0); %Monocytes 13.2 % (0.0-10.0); %Neutrophils 59.6 % (42.0-75.0); Hemoglobin 14.6 g/dL (14.0-18.0); Mean Corpuscular HGB CONC 33.9 g/dL (32.0-36.0); Mean Corpuscular Hemoglobin 33.8 pg (27.0-31.0); Mean Corpuscular Volume 99.8 fL (78.0-98.0); Mean Platelet Volume 8.6 fL (7.4-10.4); Platelet Count 187 thou/uL (130-400); Red Blood Cell (RBC) Count 4.31 mill/uL (4.70-6.10); White Blood Cell (WBC) Count 7.4 thou/uL (4.8-10.8)
[2019-05-11 05:23] LABS: Anion Gap 21 mmol/L (10-20); BUN (Urea Nitrogen) 55 mg/dL (8.4-25.7); Calc. Creatinine Clearance 14 mL/min (70-130); Calcium 9.6 mg/dL (7.8-10.44); Carbon Dioxide 22 mmol/L (23-31); Chloride 98 mmol/L (98-107); Estimated GFR-MDRD 11; Glucose 224 mg/dL (83-110); Potassium 4.2 mmol/L (3.5-5.1); Sodium 137 mmol/L (136-145)
[2019-05-11] MEDS: HumaLOG 300 UNITS/3 ML VIAL SC PRN ×3 (06:24→18:17)
[2019-05-11] MEDS: Latanoprost 0.005% Ophth Soln 2.5 ml Bottle EA EYE SCH (08:59)
[2019-05-11] MEDS: Heparin 5,000 UNITS/ML VIAL SC SCH ×3 (09:00→21:31)
[2019-05-11] MEDS: Sevelamer Carbonate 800 MG TAB PO SCH ×3 (09:00→16:32)
[2019-05-11] MEDS: Aspirin Chewable 81 MG TAB PO SCH (09:00)
[2019-05-11] MEDS: Carvedilol 3.125 MG TAB PO SCH ×2 (09:00→19:44)
[2019-05-11] MEDS: Gabapentin 100 MG CAP PO SCH ×3 (09:00→19:44)
[2019-05-11] MEDS: Pantoprazole 40 MG VIAL IVP SCH ×2 (09:01→21:31)
--- NOTE | 2019-05-11 09:14 | PRG ---
DATE OF SERVICE: 05/11/2019 SUBJECTIVE: Mr. Mancera is an 79-year-old white male with ESRD - maintenance hemodialysis and was admitted due to mental status change. Workup was essentially normal. He was also empirically treated for possible seizure. He has underlying fluctuating mental status change could be related from the dementia or from his psychiatric medications. In addition, the patient has been having dysphagia and is at risk for aspiration. For this reason, the family is requested for PEG tube placement. He has been evaluated by Dr. Scanlon. No new complaints today. The patient noted to be more awake and coherent today. OBJECTIVE: VITAL SIGNS: Blood pressure 135/60, heart rate 66, respiratory rate 20, temperature 97.6, pulse ox 92%. GENERAL: Noted to be awake, alert, comfortable, not in distress. SKIN: Adequate turgor. HEENT: He has pinkish conjunctivae. Anicteric sclerae. NECK: No neck mass. No carotid bruits. No JVD. CHEST: No deformities. LUNGS: Clear breath sounds. HEART: Normal sinus rhythm. No murmurs, gallops, or rubs. ABDOMEN: Globular, soft, nontender. No masses. EXTREMITIES: Status post bilateral leg amputations. NEUROLOGIC: The patient is awake and follows commands. He is more coherent today. MEDICATIONS: Medications of May 11, 2019, reviewed. LABORATORY DATA: His laboratories of May 11, 2019; white count 7.4, hemoglobin 14.6. Sodium 137, potassium 4.2, chloride 98, carbon dioxide 22, BUN 55, creatinine 5.17, glucose 224, calcium 9.6. ASSESSMENT AND PLAN: 1. End-stage renal disease, stable. We will continue current Friday, Friday, and Friday hemodialysis. Fluid removal only as tolerated by the patient. So far, he is tolerating the said dialysis regimen. There is no indication for an emergent hemodialysis today. 2. Aspiration - currently PEG tube will be placed with the patient. 3. Chronic anemia. No indication for any Epogen at the present time. 4. Mental status change, metabolic etiology. Could be also drug-induced. Continue supportive care. Previous brain scanning was said to be normal. Job ID: [id number]
--- NOTE | 2019-05-11 12:43 | PRG ---
DATE OF SERVICE: 05/11/2019 SUBJECTIVE: I saw the patient in the preop area prior to EGD, PEG. The daughter was at bedside. The patient is much more alert and awake today. He knows his name, date of , his daughter's name and oriented to place. According to his daughter, this is a market change and improvement from yesterday when he was fully encephalopathic. PHYSICAL EXAMINATION: VITAL SIGNS: Temperature 97.6, blood pressure 135/60, pulse of 66. GENERAL: He is awake and conversant. HEENT: Shows anicteric sclerae. Oropharynx is moist. NECK: Supple. CV: Shows normal S1, S2. Regular rate and rhythm. CHEST: Shows breath sounds. ABDOMEN: Soft and nontender. He has active bowel sounds. EXTREMITIES: Show change of bilateral BKA. LABORATORY DATA: WBC is 7.4, hemoglobin 14.6, and platelet count of 187. Electrolytes within normal range. Creatinine is 5.17. ASSESSMENT: 1. Encephalopathy, clinically resolving, currently much improved with better orientation to self, person, and place. 2. End-stage renal disease. 3. Hypertension/diabetes/peripheral vascular disease. 4. Dementia. RECOMMENDATION: 1. I recommend holding off on EGD with gastrostomy tube placement for now as his mentation has markedly improved since yesterday. 2. Speech path to re-evaluate his swallowing function as he was able to swallow fine before this admission. Job ID: [id number]
[2019-05-11] MEDS: EPOETIN ALFA-EPBX (ESRD) 4,000 UNIT/ML VIAL SC SCH (14:17)
--- NOTE | 2019-05-11 15:26 | RAD ---
Modified barium swallow INDICATION: Dysphagia, unspecified R13.10 and feeding difficulties R63.3 Fluoroscopic time 0.5 minutes. Total exposure 0.31 G/sq cm FINDINGS: The patient repeatedly spit out the barium material or refused to ingest any of the barium impregnated products during the examination. IMPRESSION: Patient refusal of modified barium swallow Transcribed Date/Time: 05/11/2019 3:32 PM
--- NOTE | 2019-05-11 16:21 | PDOC.HOSPP ---
- Subjective Subjective: Seen and examined. Patient's mentation waxes and wanes. He is more alert this a.m. knows his name, knows he is in the hospital and correctly identify [facility] and [facility]oi. However later in the afternoon when the patient went down for barium swallow he was encephalopathy can could not participate or follow commands. Long-term patient's mentation continues to wax and wane and feeding tube may be the best long-term strategy. - Objective Vital Signs & Weight: Vital Signs (12 hours) Temp Pulse Resp BP Pulse Ox 05/11/19 15:45 97.3 F L 70 20 144/65 H 95 05/11/19 12:43 97.7 F 69 20 160/74 H 96 05/11/19 07:24 97.6 F 66 20 135/60 92 L Weight Admit Weight 217 lb 11.2 oz Weight 188 lb 7.924 oz I&O: 05/10/19 05/11/19 05/12/19 06:59 06:59 06:59 Intake Total 600.4 1102 Output Total 1000 100 Balance 600.4 102 -100 Result Diagrams: 05/11/19 04:28 05/11/19 04:28 Additional Labs: Accuchecks 05/11/19 05/11/19 05/11/19 12:57 05:57 01:39 POC Glucose 218 H 202 H 194 H 05/10/19 05/10/19 19:46 16:31 POC Glucose 178 H 177 H Radiology Reviewed by me: Yes [place] [place] ROS - Review of Systems All other systems reviewed; all pertinent +/- noted in HPI/Subj - Medication Medications: Active Medications Generic Name Dose Route Start Last Admin Trade Name Freq PRN Reason Stop Dose Admin Amino Acids/Electrolytes/Dextrose 1,000 ml 05/09/19 17:15 05/10/19 22:06 Clinimix E 4.25/5 IV 1,000 ml INF RENA Administration Aspirin 81 mg 05/06/19 09:00 05/11/19 09:00 Aspirin Chewable PO Not Given DAILY RENA Carvedilol 3.125 mg 05/04/19 21:00 05/11/19 09:00 Coreg PO Not Given BID RENA Epoetin Sean-epbx 7,500 unit 05/04/19 09:00 05/11/19 14:17 Retacrit SC 7,500 unit Q7D RENA Administration Gabapentin 100 mg 05/10/19 15:00 05/11/19 09:00 Neurontin PO Not Given TID RENA Heparin Sodium (Porcine) 5,000 units 05/04/19 15:00 05/11/19 14:16 Heparin SC 5,000 units TID RENA Administration Levetiracetam 500 mg/ Device 100 mls @ 200 mls/hr 05/05/19 21:00 05/11/19 08: 59 IVPB 100 mls BID RENA Administration Insulin Human Lispro 0 units 05/03/19 20:55 05/11/19 14:16 Humalog SC 4 unit .MODERATE SLIDING SC PRN Administration Moderate Correctional Scale Latanoprost 1 drop 05/11/19 09:00 05/11/19 08:59 Xalatan 0.005% Ophth Soln EA EYE 1 drop DAILY RENA Administration Sevelamer Carbonate 800 mg 05/08/19 12:00 05/11/19 14:17 Renvela PO Not Given TID-WM RENA Sodium Chloride 10 ml 05/05/19 21:00 05/11/19 09:01 Flush - Normal Saline IVF 10 ml Q12HR RENA Administration Sterile Water 1.2 ml 05/04/19 04:00 05/10/19 08:56 Water For Injection FS 1.2 ml PRN PRN Administration RECONSTITUTION Ziprasidone 10 mg 05/04/19 03:55 05/10/19 08:56 Geodon IM 10 mg Q2H PRN Administration Agitation - Exam General Appearance: NAD Eye: PERRL, anicteric sclera ENT: normocephalic atraumatic, moist mucosa Neck: supple, symmetric, no lymphadenopathy Heart: no murmur, no gallops, no rubs Respiratory: CTAB, no wheezes, no rales, no ronchi, normal chest expansion Gastrointestinal: soft, non-tender, non-distended, normal bowel sounds, no guarding, no rigidity Extremities: no clubbing, no edema Skin: no lesions, no rashes Neurological: cranial nerve grossly intact, no focal deficits Musculoskeletal: generalized weakness Psychiatric: A&O x 3, flat affect Hosp A/P (1) Anemia due to acute blood loss Code(s): D62 - ACUTE POSTHEMORRHAGIC ANEMIA Status: Resolved (2) GI bleed Code(s): K92.2 - GASTROINTESTINAL HEMORRHAGE, UNSPECIFIED Status: Resolved (3) Volume overload Code(s): E87.70 - FLUID OVERLOAD, UNSPECIFIED Status: Resolved (4) Amputation leg, bilat Code(s): S88.911A - COMPLETE TRAUMATIC AMPUTATION OF R LOW LEG, LEVEL UNSP, INIT ; S88.912A - COMPLETE TRAUMATIC AMPUTATION OF L LOW LEG, LEVEL UNSP, INIT Status: Chronic (5) Anemia, normocytic normochromic Code(s): D64.9 - ANEMIA, UNSPECIFIED Status: Chronic (6) CAD (coronary artery disease) Code(s): I25.10 - ATHSCL HEART DISEASE OF [place] CORONARY ARTERY W/O ANG PCTRS Status: Chronic (7) Chronic combined systolic and diastolic CHF (congestive heart failure) Code(s): I50.42 - CHRONIC COMBINED SYSTOLIC AND DIASTOLIC HRT FAIL Status: Chronic (8) Dementia Code(s): F03.90 - UNSPECIFIED DEMENTIA WITHOUT BEHAVIORAL DISTURBANCE Status: Chronic Qualifiers: (9) Diabetes mellitus type 2 in obese Code(s): E11.69 - TYPE 2 DIABETES MELLITUS WITH OTHER SPECIFIED COMPLICATION; E66.9 - OBESITY, UNSPECIFIED Status: Chronic (10) ESRD (end stage renal disease) on dialysis Code(s): N18.6 - END STAGE RENAL DISEASE; Z99.2 - DEPENDENCE ON RENAL DIALYSIS Status: Chronic (11) HLD (hyperlipidemia) Code(s): E78.5 - HYPERLIPIDEMIA, UNSPECIFIED Status: Chronic Qualifiers: (12) HTN (hypertension) Code(s): I10 - ESSENTIAL (PRIMARY) HYPERTENSION Status: Chronic Qualifiers: (13) PVD (peripheral vascular disease) Code(s): I73.9 - PERIPHERAL VASCULAR DISEASE, UNSPECIFIED Status: Chronic (14) Hypotension Status: Resolved - Plan Plan: Medical unit with telemetry Gastroenterology consultation, recommendations appreciated neurology consultation, recommendations appreciated nephrology consultation, recommendations appreciated palliative care consultation, recommendations appreciated altered mental status is reportedly improved since starting antiepileptic drug - waxes and wanes - was unable to cooperate with MBS on 05/11 Was planned for PEG, though mentation improved momentarily when he was in pre op - discussed with speech therapy who states he continues to fail swallow eval MRI the brain with chronic white matter changes in 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
[2019-05-11] MEDS: Ziprasidone 20 MG VIAL IM PRN (17:06)
[2019-05-11] MEDS ORDERED: Sodium Chloride 0.9% (PF) 10 ML VIAL FS PRN (20:58)
[2019-05-11] MEDS ORDERED: Pantoprazole 40 MG GRANULES PACKET PER TUBE SCH (21:00)
[2019-05-12] MEDS: HumaLOG 300 UNITS/3 ML VIAL SC PRN ×2 (00:33→06:29)
[2019-05-12] MEDS: D5W-AA 4.25% with LYTES 1,000 ML BAG IV SCH (01:41)
[2019-05-12 07:49] LABS: HBSAg Index 0.19 S/CO (0-0.99); Hep B Surf Ag Non-Reactive S/CO (NonReactive)
[2019-05-12] MEDS: Heparin 5,000 UNITS/ML VIAL SC SCH ×3 (08:37→21:30)
[2019-05-12] MEDS: Pantoprazole 40 MG VIAL IVP SCH ×2 (08:38→21:30)
--- NOTE | 2019-05-12 09:20 | PRG ---
DATE OF SERVICE: 05/12/2019 SUBJECTIVE: Mr. Mancera is an 79-year-old white male with ESRD and followed up by the Renal Service for his maintenance hemodialysis. He is currently undergoing 3 times a week hemodialysis and tolerating said treatment. Due to his mental status change and history of dysphagia, he was evaluated by GI for possible PEG tube placement. However, this was placed on hold due to the improving mentation of the patient and holding off the upper GI endoscopy and PEG tube placement. This morning, he is awake, but somewhat mildly confused. No complaints of chest pain or shortness of breath. OBJECTIVE: VITAL SIGNS: Blood pressure 164/79, heart rate 74, respiratory rate 20, temperature 97.5, and pulse ox 96%. GENERAL: Awake, comfortable, not in distress, obese. SKIN: Adequate turgor. HEENT: Pinkish conjunctivae. Anicteric sclerae. NECK: No neck mass. No carotid bruits. No JVD. CHEST: No deformities. LUNGS: Clear breath sounds. HEART: Normal sinus rhythm. No murmurs. No gallops. No rubs. ABDOMEN: Globular, soft, and nontender. No masses. EXTREMITIES: Bilateral leg amputation - right BKA and left AKA. MEDICATIONS: Medications of May 12, 2019, were reviewed. LABORATORY DATA: Laboratories of May 11, 2019; white count 7.4, hemoglobin 14.6. Sodium 137, potassium 4.2, chloride 98, carbon dioxide 22, BUN 55, creatinine 5.17, and calcium 9.6. ASSESSMENT AND PLAN: 1. End-stage renal disease, stable. Continue current Friday, Friday, and Friday hemodialysis regimen. Fluid removal only as tolerated. 2. Chronic anemia. No indication for any Epogen at the present time. 3. Mental status change - secondary to metabolic encephalopathy. Continue supportive care. 4. Dysphagia - PEG tube placement on hold at the present time. Job ID: [id number]
[2019-05-12] MEDS: Aspirin Chewable 81 MG TAB PO SCH (10:01)
[2019-05-12] MEDS: Sevelamer Carbonate 800 MG TAB PO SCH ×3 (10:01→18:33)
[2019-05-12] MEDS: Gabapentin 100 MG CAP PO SCH ×3 (10:02→21:30)
[2019-05-12] MEDS: Latanoprost 0.005% Ophth Soln 2.5 ml Bottle EA EYE SCH (10:02)
[2019-05-12] MEDS: Carvedilol 3.125 MG TAB PO SCH ×2 (10:02→21:30)
[2019-05-12] MEDS ORDERED: PROPOFOL 200 MG/20 ML VIAL ONE (10:03)
--- NOTE | 2019-05-12 15:41 | PDOC.HOSPP ---
- Subjective Subjective: Seen and examined. Yelling incoherently heard from down the hernandez. When I enter the room the patient does calm and makes a few words. He is not as oriented as he was prior. Does not know why he is in the hospital. He can tell me his name. - Objective Vital Signs & Weight: Vital Signs (12 hours) Temp Pulse Pulse Pulse Resp BP BP 05/12/19 14:40 97.9 F 70 24 H 05/12/19 08:45 73 72 172/62 H 168/77 H 05/12/19 08:00 05/12/19 07:15 97.5 F L 74 20 05/12/19 04:30 97.5 F L 74 18 BP Pulse Ox 05/12/19 14:40 177/80 H 93 L 05/12/19 08:45 05/12/19 08:00 96 05/12/19 07:15 164/79 H 96 05/12/19 04:30 158/72 H 97 Weight Admit Weight 217 lb 11.2 oz Weight 188 lb 7.924 oz I&O: 05/11/19 05/12/19 05/13/19 06:59 06:59 06:59 Intake Total 1102 463 225 Output Total 1000 100 Balance 102 363 225 Result Diagrams: 05/11/19 04:28 05/11/19 04:28 Additional Labs: Accuchecks 05/12/19 05/12/19 05/11/19 06:16 00:20 18:08 POC Glucose 211 H 177 H 189 H Radiology Reviewed by me: Yes Hospitalist ROS - Review of Systems All other systems reviewed; all pertinent +/- noted in HPI/Subj - Medication Medications: Active Medications Generic Name Dose Route Start Last Admin Trade Name Freq PRN Reason Stop Dose Admin Amino Acids/Electrolytes/Dextrose 1,000 ml 05/09/19 17:15 05/12/19 01:41 Clinimix E 4.25/5 IV 1,000 ml INF RENA Administration Aspirin 81 mg 05/06/19 09:00 05/12/19 10:01 Aspirin Chewable PO Not Given DAILY RENA Carvedilol 3.125 mg 05/04/19 21:00 05/12/19 10:02 Coreg PO Not Given BID RENA Epoetin Sean-epbx 7,500 unit 05/04/19 09:00 05/11/19 14:17 Retacrit SC 7,500 unit Q7D RENA Administration Gabapentin 100 mg 05/10/19 15:00 05/12/19 10:02 Neurontin PO Not Given TID RENA Heparin Sodium (Porcine) 5,000 units 05/04/19 15:00 05/12/19 08:37 Heparin SC 5,000 units TID RENA Administration Levetiracetam 750 mg/ Sodium 107.5 mls @ 215 mls/hr 05/11/19 21:00 05/12/19 08:38 Chloride IVPB 107.5 mls BID RENA Administration Insulin Human Lispro 0 units 05/03/19 20:55 05/12/19 06:29 Humalog SC 4 unit .MODERATE SLIDING SC PRN Administration Moderate Correctional Scale Latanoprost 1 drop 05/11/19 09:00 05/12/19 10:02 Xalatan 0.005% Ophth Soln EA EYE Not Given DAILY RENA Pantoprazole Sodium 40 mg 05/11/19 21:00 05/12/19 08:38 Protonix IVP 40 mg Q12HR RENA Administration Sevelamer Carbonate 800 mg 05/08/19 12:00 05/12/19 11:34 Renvela PO Not Given TID-WM RENA Sodium Chloride 10 ml 05/05/19 21:00 05/12/19 08:38 Flush - Normal Saline IVF 10 ml Q12HR RENA Administration Sterile Water 1.2 ml 05/04/19 04:00 05/10/19 08:56 Water For Injection FS 1.2 ml PRN PRN Administration RECONSTITUTION Ziprasidone 10 mg 05/04/19 03:55 05/11/19 17:06 Geodon IM 10 mg Q2H PRN Administration Agitation - Exam General Appearance: ill appearing Eye: PERRL, anicteric sclera ENT: normocephalic atraumatic, moist mucosa Neck: supple, symmetric, no lymphadenopathy Heart: no murmur, no gallops, no rubs Respiratory: CTAB, no wheezes, no rales, no ronchi Gastrointestinal: soft, non-tender, non-distended, no guarding, no rigidity Extremities: no edema Skin: no lesions, no rashes Neurological: cranial nerve grossly intact, no focal deficits Musculoskeletal: generalized weakness Psychiatric: oriented to person Hosp A/P (1) Anemia due to acute blood loss Code(s): D62 - ACUTE POSTHEMORRHAGIC ANEMIA Status: Resolved (2) GI bleed Code(s): K92.2 - GASTROINTESTINAL HEMORRHAGE, UNSPECIFIED Status: Resolved (3) Volume overload Code(s): E87.70 - FLUID OVERLOAD, UNSPECIFIED Status: Resolved (4) Amputation leg, bilat Code(s): S88.911A - COMPLETE TRAUMATIC AMPUTATION OF R LOW LEG, LEVEL UNSP, INIT ; S88.912A - COMPLETE TRAUMATIC AMPUTATION OF L LOW LEG, LEVEL UNSP, INIT Status: Chronic (5) Anemia, normocytic normochromic Code(s): D64.9 - ANEMIA, UNSPECIFIED Status: Chronic (6) CAD (coronary artery disease) Code(s): I25.10 - ATHSCL HEART DISEASE OF [place] CORONARY ARTERY W/O ANG PCTRS Status: Chronic (7) Chronic combined systolic and diastolic CHF (congestive heart failure) Code(s): I50.42 - CHRONIC COMBINED SYSTOLIC AND DIASTOLIC HRT FAIL Status: Chronic (8) Dementia Code(s): F03.90 - UNSPECIFIED DEMENTIA WITHOUT BEHAVIORAL DISTURBANCE Status: Chronic Qualifiers: (9) Diabetes mellitus type 2 in obese Code(s): E11.69 - TYPE 2 DIABETES MELLITUS WITH OTHER SPECIFIED COMPLICATION; E66.9 - OBESITY, UNSPECIFIED Status: Chronic (10) ESRD (end stage renal disease) on dialysis Code(s): N18.6 - END STAGE RENAL DISEASE; Z99.2 - DEPENDENCE ON RENAL DIALYSIS Status: Chronic (11) HLD (hyperlipidemia) Code(s): E78.5 - HYPERLIPIDEMIA, UNSPECIFIED Status: Chronic Qualifiers: (12) HTN (hypertension) Code(s): I10 - ESSENTIAL (PRIMARY) HYPERTENSION Status: Chronic Qualifiers: (13) PVD (peripheral vascular disease) Code(s): I73.9 - PERIPHERAL VASCULAR DISEASE, UNSPECIFIED Status: Chronic (14) Hypotension Status: Resolved - Plan Plan: Medical unit with telemetry Gastroenterology consultation, recommendations appreciated neurology consultation, recommendations appreciated nephrology consultation, recommendations appreciated palliative care consultation, recommendations appreciated 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, 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
[2019-05-13] MEDS: Pantoprazole 40 MG VIAL IVP SCH ×2 (10:00→21:16)
[2019-05-13] MEDS: Gabapentin 100 MG CAP PO SCH ×3 (10:01→21:16)
[2019-05-13] MEDS: Aspirin Chewable 81 MG TAB PO SCH (10:01)
[2019-05-13] MEDS: Carvedilol 3.125 MG TAB PO SCH ×2 (10:01→21:16)
[2019-05-13] MEDS: Latanoprost 0.005% Ophth Soln 2.5 ml Bottle EA EYE SCH (10:01)
[2019-05-13] MEDS: Heparin 5,000 UNITS/ML VIAL SC SCH ×3 (10:01→21:16)
[2019-05-13] MEDS: Sevelamer Carbonate 800 MG TAB PO SCH ×3 (10:01→17:34)
--- NOTE | 2019-05-13 10:16 | PRG ---
DATE OF SERVICE: 05/13/2019 SUBJECTIVE: Mr. Mancera is an 79-year-old white male with ESRD and followed up by the Renal Service for his maintenance hemodialysis. He underwent hemodialysis yesterday without difficulty. He was noted to be very agitated with dialysis. Please note, he most likely has underlying dementia. He also underwent a PEG tube placement yesterday. No other complaints today. He is quiescent today. The patient denies any chest pain or shortness of breath. OBJECTIVE: VITAL SIGNS: Blood pressure 106/56, heart rate 76, respiratory rate 18, temperature 98.3, and pulse ox 97%. GENERAL: Awake, alert, comfortable, not in distress. SKIN: Adequate turgor. HEENT: Pinkish conjunctivae. Anicteric sclerae. NECK: No neck mass. No carotid bruits. No JVD. CHEST: No deformities. LUNGS: Clear breath sounds. No wheezing. No crackles. HEART: Normal sinus rhythm. No murmur. No gallops. No rubs. ABDOMEN: Globular, soft, and nontender. No masses. EXTREMITIES: No edema. No deformities. He does have a PEG tube. MEDICATIONS: Medications of May 13, 2019, was reviewed. LABORATORY DATA: Laboratories of May 11, 2019; white count 7.4, hemoglobin 14.6. On May 13, 2019; glucose 158. On May 11, 2019; potassium 4.2, BUN 55, and creatinine 5.17. ASSESSMENT AND PLAN: 1. End-stage renal disease - continue Friday, Friday, and Friday hemodialysis. Fluid removal as tolerated. 2. Agitation, p.r.n. sedation. 3. Mental status change - much improved. Continue antipsychotic medications as needed. 4. Dysphagia aspiration - currently percutaneous endoscopic gastrostomy tube has been placed. Continue supportive care. No indication for an emergent hemodialysis. Job ID: [id number]
--- NOTE | 2019-05-13 11:58 | OP ---
DATE OF PROCEDURE: 05/12/2019 PREPROCEDURE DIAGNOSES: 1. Cerebrovascular accident. 2. Oropharyngeal dysphagia. POSTPROCEDURE DIAGNOSES: 1. PEG tube placement, Ponsky pull technique. 2. Normal EGD, status post PEG tube. ANESTHESIA: TIVA, 2 g Ancef prophylactic antibiotic. RECOMMENDATIONS: Okay to start tube feeds in 4 hours the patient does not pull PEG out, wash PEG site with soap and water daily. PROCEDURE IN DETAIL: After the patient was informed of the risks, benefits, and possible complications of endoscopy including perforation, bleeding, reaction to medication, and aspiration, informed consent was obtained from the patient's family. the patient was seemed to be improving. therefore, we wanted to go ahead and place the PEG. Once the patient was sedated, a bite block was placed inside the orifice. Endoscope was advanced through the esophagus, stomach, and second and third portions of the duodenum and slowly removed. There was good visualization of the mucosa. There was adequate PEG tube placement identified by transillumination and finger indentation. The abdomen was prepped and draped in sterile fashion. The PEG tube was placed by Ponsky pull technique. Second-look confirmed good placement. The EGD was normal in terms of the stomach, esophagus, and duodenum, and the stomach was evaluated in forward and retroflexed views. The scope was removed. The patient tolerated the procedure well with no complications. Job ID: [id number]
--- NOTE | 2019-05-13 12:17 | PRG ---
DATE OF SERVICE: 05/13/2019 SUBJECTIVE: Mr. Mancera had a PEG placed yesterday. He is tolerating tube feeds. OBJECTIVE: VITAL SIGNS: Temperature 98, pulse 71, and respiration 15. ABDOMEN: Soft and nontender. PEG tube site, warm, dry, and clean. No erythema. EXTREMITIES: He has bilateral amputee. ASSESSMENT: Cerebrovascular accident with oropharyngeal dysphagia after PEG tube placed with no signs of complications. RECOMMENDATIONS: Continue tube feeds. At this time, I will sign off. If I can be of any further assistance in the patient's care, please do not hesitate to contact me. Job ID: [id number]
--- NOTE | 2019-05-13 13:02 | PDOC.HOSPP ---
- Subjective Subjective: Seen and examined. Status post PEG tube. Tolerating tube feeds. Confused and agitated this a.m. When at bedside he does calm a little bit, though when out of the room he is yelling down the [place] at times. - Objective Vital Signs & Weight: Vital Signs (12 hours) Temp Pulse Resp BP BP Pulse Ox 05/13/19 11:07 98.6 F 71 15 125/60 98 05/13/19 07:43 98.3 F 76 18 106/56 L 97 05/13/19 03:13 98.1 F 74 20 101/53 L 94 L Weight Admit Weight 217 lb 11.2 oz Weight 188 lb 7.924 oz I&O: 05/12/19 05/13/19 05/14/19 06:59 06:59 06:59 Intake Total 463 255 Output Total 100 Balance 363 255 Result Diagrams: 05/11/19 04:28 05/11/19 04:28 Additional Labs: Accuchecks 05/13/19 05/13/19 11:33 00:04 POC Glucose 268 H 158 H Radiology Reviewed by me: Yes Hospitalist ROS - Review of Systems All other systems reviewed; all pertinent +/- noted in HPI/Subj - Medication Medications: Active Medications Generic Name Dose Route Start Last Admin Trade Name Freq PRN Reason Stop Dose Admin Amino Acids/Electrolytes/Dextrose 1,000 ml 05/09/19 17:15 05/12/19 01:41 Clinimix E 4.25/5 IV 1,000 ml INF RENA Administration Aspirin 81 mg 05/06/19 09:00 05/13/19 10:01 Aspirin Chewable PO 81 mg DAILY RENA Administration Carvedilol 3.125 mg 05/04/19 21:00 05/13/19 10:01 Coreg PO 3.125 mg BID RENA Administration Epoetin Sean-epbx 7,500 unit 05/04/19 09:00 05/11/19 14:17 Retacrit SC 7,500 unit Q7D RENA Administration Gabapentin 100 mg 05/10/19 15:00 05/13/19 10:01 Neurontin PO 100 mg TID RENA Administration Heparin Sodium (Porcine) 5,000 units 05/04/19 15:00 05/13/19 10:01 Heparin SC 5,000 units TID RENA Administration Levetiracetam 750 mg/ Sodium 107.5 mls @ 215 mls/hr 05/11/19 21:00 05/13/19 10:02 Chloride IVPB 107.5 mls BID RENA Administration Insulin Human Lispro 0 units 05/03/19 20:55 05/12/19 06:29 Humalog SC 4 unit .MODERATE SLIDING SC PRN Administration Moderate Correctional Scale Latanoprost 1 drop 05/11/19 09:00 05/13/19 10:01 Xalatan 0.005% Ophth Soln EA EYE 1 drop DAILY RENA Administration Pantoprazole Sodium 40 mg 05/11/19 21:00 05/13/19 10:00 Protonix IVP 40 mg Q12HR RENA Administration Quetiapine Fumarate 25 mg 05/05/19 13:42 05/12/19 22:33 Seroquel PO 25 mg HSPRN PRN Administration agitation, insomnia Sevelamer Carbonate 800 mg 05/08/19 12:00 05/13/19 10:01 Renvela PO 800 mg TID-WM RENA Administration Sodium Chloride 10 ml 05/05/19 21:00 05/13/19 10:02 Flush - Normal Saline IVF 10 ml Q12HR RENA Administration Sterile Water 1.2 ml 05/04/19 04:00 05/10/19 08:56 Water For Injection FS 1.2 ml PRN PRN Administration RECONSTITUTION Ziprasidone 10 mg 05/04/19 03:55 05/11/19 17:06 Geodon IM 10 mg Q2H PRN Administration Agitation - Exam General Appearance: NAD Eye: anicteric sclera ENT: normocephalic atraumatic, moist mucosa Neck: supple, symmetric, no lymphadenopathy Heart: no murmur, no gallops, no rubs Respiratory: CTAB, no wheezes, no rales, no ronchi, normal chest expansion Gastrointestinal: soft, non-tender, no guarding, no rigidity Gastrointestinal - other findings: PEG in position Extremities: no edema Extremities - other findings: Bilateral amputations Skin: no rashes Neurological: cranial nerve grossly intact, no focal deficits Musculoskeletal: generalized weakness Psychiatric: oriented to person, flat affect Hosp A/P (1) Anemia due to acute blood loss Code(s): D62 - ACUTE POSTHEMORRHAGIC ANEMIA Status: Resolved (2) GI bleed Code(s): K92.2 - GASTROINTESTINAL HEMORRHAGE, UNSPECIFIED Status: Resolved (3) Volume overload Code(s): E87.70 - FLUID OVERLOAD, UNSPECIFIED Status: Resolved (4) Amputation leg, bilat Code(s): S88.911A - COMPLETE TRAUMATIC AMPUTATION OF R LOW LEG, LEVEL UNSP, INIT ; S88.912A - COMPLETE TRAUMATIC AMPUTATION OF L LOW LEG, LEVEL UNSP, INIT Status: Chronic (5) Anemia, normocytic normochromic Code(s): D64.9 - ANEMIA, UNSPECIFIED Status: Chronic (6) CAD (coronary artery disease) Code(s): I25.10 - ATHSCL HEART DISEASE OF [place] CORONARY ARTERY W/O ANG PCTRS Status: Chronic (7) Chronic combined systolic and diastolic CHF (congestive heart failure) Code(s): I50.42 - CHRONIC COMBINED SYSTOLIC AND DIASTOLIC HRT FAIL Status: Chronic (8) Dementia Code(s): F03.90 - UNSPECIFIED DEMENTIA WITHOUT BEHAVIORAL DISTURBANCE Status: Chronic Qualifiers: (9) Diabetes mellitus type 2 in obese Code(s): E11.69 - TYPE 2 DIABETES MELLITUS WITH OTHER SPECIFIED COMPLICATION; E66.9 - OBESITY, UNSPECIFIED Status: Chronic (10) ESRD (end stage renal disease) on dialysis Code(s): N18.6 - END STAGE RENAL DISEASE; Z99.2 - DEPENDENCE ON RENAL DIALYSIS Status: Chronic (11) HLD (hyperlipidemia) Code(s): E78.5 - HYPERLIPIDEMIA, UNSPECIFIED Status: Chronic Qualifiers: (12) HTN (hypertension) Code(s): I10 - ESSENTIAL (PRIMARY) HYPERTENSION Status: Chronic Qualifiers: (13) PVD (peripheral vascular disease) Code(s): I73.9 - PERIPHERAL VASCULAR DISEASE, UNSPECIFIED Status: Chronic (14) Hypotension Status: Resolved - Plan Plan: Medical unit with telemetry Will need placement in SNF, CM consult to aid in D/c planning Gastroenterology consultation, recommendations appreciated neurology consultation, recommendations appreciated nephrology consultation, recommendations appreciated palliative care consultation, recommendations appreciated 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, 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
[2019-05-13] MEDS: HumaLOG 300 UNITS/3 ML VIAL SC PRN ×2 (13:55→18:38)
[2019-05-14] MEDS: HumaLOG 300 UNITS/3 ML VIAL SC PRN ×3 (01:15→18:10)
[2019-05-14 05:18] LABS: Red Blood Cell (RBC) Count 4.13 mill/uL (4.70-6.10); White Blood Cell (WBC) Count 8.5 thou/uL (4.8-10.8)
[2019-05-14 05:19] LABS: #Eosinphils 0.5 thou/uL (0.0-0.7); #Lymphocytes 2.1 thou/uL (1.20-3.40); #Neutrophils 4.8 thou/uL (1.40-6.50); %Basophils 0.6 % (0.0-1.0); %Eosinophils 5.7 % (0.0-10.0); %Lymphocytes 24.9 % (21.0-51.0); %Monocytes 12.2 % (0.0-10.0); %Neutrophils 56.7 % (42.0-75.0); Hemoglobin 13.5 g/dL (14.0-18.0); Mean Corpuscular HGB CONC 32.5 g/dL (32.0-36.0); Mean Corpuscular Hemoglobin 32.7 pg (27.0-31.0); Mean Platelet Volume 8.9 fL (7.4-10.4); Platelet Count 157 thou/uL (130-400); RBC Distribution Width 13.1 % (11.5-14.5)
[2019-05-14 05:43] LABS: Anion Gap 19 mmol/L (10-20); BUN (Urea Nitrogen) 73 mg/dL (8.4-25.7); Calc. Creatinine Clearance 11 mL/min (70-130); Calcium 9.5 mg/dL (7.8-10.44); Carbon Dioxide 25 mmol/L (23-31); Chloride 98 mmol/L (98-107); Estimated GFR-MDRD 8; Glucose 275 mg/dL (83-110); Potassium 4.1 mmol/L (3.5-5.1); Sodium 138 mmol/L (136-145)
[2019-05-14] MEDS: Gabapentin 100 MG CAP PO SCH ×3 (10:21→22:00)
[2019-05-14] MEDS: Heparin 5,000 UNITS/ML VIAL SC SCH ×3 (10:21→22:00)
[2019-05-14] MEDS: Sevelamer Carbonate 800 MG TAB PO SCH ×3 (10:21→16:26)
[2019-05-14] MEDS: Latanoprost 0.005% Ophth Soln 2.5 ml Bottle EA EYE SCH (10:22)
[2019-05-14] MEDS: Aspirin Chewable 81 MG TAB PO SCH (10:22)
[2019-05-14] MEDS: Carvedilol 3.125 MG TAB PO SCH ×2 (10:22→22:00)
[2019-05-14] MEDS: Pantoprazole 40 MG VIAL IVP SCH (10:23)
--- NOTE | 2019-05-14 11:41 | PRG ---
DATE OF SERVICE: 05/14/2019 SUBJECTIVE: Mr. Mancera is an 79-year-old white male with ESRD followed up by the [facility] for his maintenance hemodialysis. In the interim, the patient has had a PEG tube placed due to dysphagia. He is tolerating the said PEG tube feeding. No other complaints today. He gets agitated from time to time. No complaints of chest pain or shortness of breath. OBJECTIVE: VITAL SIGNS: Blood pressure 128/58, heart rate 71, respiratory rate 20, temperature 98.4, and pulse ox 93%. GENERAL: Noted to be awake, alert, comfortable, not in distress. SKIN: Adequate turgor. HEENT: He has pinkish conjunctivae. Anicteric sclerae. NECK: No neck mass. No carotid bruits. No JVD. CHEST: No deformities. LUNGS: Clear breath sounds. HEART: Normal sinus rhythm. No murmur. No gallops. No rubs. ABDOMEN: Globular, soft, and nontender. No masses. Positive for PEG tube. EXTREMITIES: No edema. No deformities. MEDICATIONS: Medications of May 14, 2019, reviewed. LABORATORY DATA: Laboratories of May 14, 2019; white count 8.5, hemoglobin 13.5. Sodium 138, potassium 4.1, chloride 98, carbon dioxide 25, BUN 73, creatinine 6.66, glucose 275, and calcium 9.5. ASSESSMENT AND PLAN: 1. End-stage renal disease - stable. We will continue current hemodialysis regimen. Fluid removal only as tolerated. His last dialysis treatment has been marred by some degree of agitation by this patient. 2. Dysphagia - status post PEG tube placement. Tolerating tube feedings. 3. Dementia/agitation, while currently on Seroquel. Overall agree with current management. Job ID: [id number]
--- NOTE | 2019-05-14 12:00 | PDOC.HOSPP ---
- Subjective Subjective: Seen and examined this a.m. No clinical change. Patient eyes open and making a few words. Becomes confused and moaning today. Shakes his head no to pain. Breathing well on room air. Changing medications to tube feeding. Stop Clinimix. - Objective Vital Signs & Weight: Vital Signs (12 hours) Temp Pulse Resp BP Pulse Ox 05/14/19 07:22 98.4 F 71 20 128/58 L 93 L 05/14/19 03:57 98.3 F 64 16 107/53 L 99 05/14/19 00:00 97.8 F 63 16 106/52 L 90 L Weight Admit Weight 217 lb 11.2 oz Weight 188 lb 7.924 oz I&O: 05/13/19 05/14/19 05/15/19 06:59 06:59 06:59 Intake Total 255 115 Balance 255 115 Result Diagrams: 05/14/19 04:27 05/14/19 04:27 Additional Labs: Accuchecks 05/14/19 05/14/19 05/13/19 06:36 01:04 17:54 POC Glucose 378 H 286 H 221 H Radiology Reviewed by me: Yes Hospitalist ROS - Review of Systems All other systems reviewed; all pertinent +/- noted in HPI/Subj - Medication Medications: Active Medications Generic Name Dose Route Start Last Admin Trade Name Freq PRN Reason Stop Dose Admin Aspirin 81 mg 05/06/19 09:00 05/14/19 10:22 Aspirin Chewable PO 81 mg DAILY RENA Administration Carvedilol 3.125 mg 05/04/19 21:00 05/14/19 10:22 Coreg PO 3.125 mg BID RENA Administration Epoetin Sean-epbx 7,500 unit 05/04/19 09:00 05/11/19 14:17 Retacrit SC 7,500 unit Q7D RENA Administration Gabapentin 100 mg 05/10/19 15:00 05/14/19 10:21 Neurontin PO 100 mg TID RENA Administration Heparin Sodium (Porcine) 5,000 units 05/04/19 15:00 05/14/19 10:21 Heparin SC 5,000 units TID RENA Administration Insulin Human Lispro 0 units 05/03/19 20:55 05/14/19 01:15 Humalog SC 6 unit .MODERATE SLIDING SC PRN Administration Moderate Correctional Scale Latanoprost 1 drop 05/11/19 09:00 05/14/19 10:22 Xalatan 0.005% Ophth Soln EA EYE 1 drop DAILY RENA Administration Sevelamer Carbonate 800 mg 05/08/19 12:00 05/14/19 10:21 Renvela PO 800 mg TID-WM RENA Administration Sodium Chloride 10 ml 05/05/19 21:00 05/14/19 10:23 Flush - Normal Saline IVF 10 ml Q12HR RENA Administration Sterile Water 1.2 ml 05/04/19 04:00 05/10/19 08:56 Water For Injection FS 1.2 ml PRN PRN Administration RECONSTITUTION Ziprasidone 10 mg 05/04/19 03:55 05/11/19 17:06 Geodon IM 10 mg Q2H PRN Administration Agitation - Exam General Appearance: NAD Eye: PERRL, anicteric sclera ENT: normocephalic atraumatic, moist mucosa Neck: symmetric, no JVD, no lymphadenopathy Heart: no murmur, no gallops, no rubs Respiratory: CTAB, no wheezes, no rales, no ronchi Gastrointestinal: soft, non-tender, non-distended, no guarding Extremities: no edema Extremities - other findings: Bilateral LE amputations Skin: no lesions, no rashes Neurological: cranial nerve grossly intact, no focal deficits Musculoskeletal: generalized weakness Psychiatric: oriented to person Hosp A/P (1) Anemia due to acute blood loss Code(s): D62 - ACUTE POSTHEMORRHAGIC ANEMIA Status: Resolved (2) GI bleed Code(s): K92.2 - GASTROINTESTINAL HEMORRHAGE, UNSPECIFIED Status: Resolved (3) Volume overload Code(s): E87.70 - FLUID OVERLOAD, UNSPECIFIED Status: Resolved (4) Amputation leg, bilat Code(s): S88.911A - COMPLETE TRAUMATIC AMPUTATION OF R LOW LEG, LEVEL UNSP, INIT ; S88.912A - COMPLETE TRAUMATIC AMPUTATION OF L LOW LEG, LEVEL UNSP, INIT Status: Chronic (5) Anemia, normocytic normochromic Code(s): D64.9 - ANEMIA, UNSPECIFIED Status: Chronic (6) CAD (coronary artery disease) Code(s): I25.10 - ATHSCL HEART DISEASE OF [place] CORONARY ARTERY W/O ANG PCTRS Status: Chronic (7) Chronic combined systolic and diastolic CHF (congestive heart failure) Code(s): I50.42 - CHRONIC COMBINED SYSTOLIC AND DIASTOLIC HRT FAIL Status: Chronic (8) Dementia Code(s): F03.90 - UNSPECIFIED DEMENTIA WITHOUT BEHAVIORAL DISTURBANCE Status: Chronic Qualifiers: (9) Diabetes mellitus type 2 in obese Code(s): E11.69 - TYPE 2 DIABETES MELLITUS WITH OTHER SPECIFIED COMPLICATION; E66.9 - OBESITY, UNSPECIFIED Status: Chronic (10) ESRD (end stage renal disease) on dialysis Code(s): N18.6 - END STAGE RENAL DISEASE; Z99.2 - DEPENDENCE ON RENAL DIALYSIS Status: Chronic (11) HLD (hyperlipidemia) Code(s): E78.5 - HYPERLIPIDEMIA, UNSPECIFIED Status: Chronic Qualifiers: (12) HTN (hypertension) Code(s): I10 - ESSENTIAL (PRIMARY) HYPERTENSION Status: Chronic Qualifiers: (13) PVD (peripheral vascular disease) Code(s): I73.9 - PERIPHERAL VASCULAR DISEASE, UNSPECIFIED Status: Chronic (14) Hypotension Status: Resolved - Plan Plan: Medical unit with telemetry Will need placement in SNF, CM consult to aid in D/c planning Gastroenterology consultation, recommendations appreciated neurology consultation, recommendations appreciated nephrology consultation, recommendations appreciated palliative care consultation, recommendations appreciated 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
[2019-05-14] MEDS: levETIRAcetam 100 mg/ml Oral Solution PER TUBE SCH (22:00)
[2019-05-15] MEDS: HumaLOG 300 UNITS/3 ML VIAL SC PRN ×4 (00:42→18:08)
[2019-05-15] MEDS ORDERED: Ziprasidone 20 MG VIAL IM SCH (00:45)
[2019-05-15] MEDS ORDERED: Sterile Water 10 ML VIAL FS SCH (00:45)
[2019-05-15] MEDS ORDERED: Acetaminophen 500 MG TAB PO SCH (05:30)
[2019-05-15] MEDS ORDERED: Acetaminophen 500 MG TAB PO PRN (08:24)
[2019-05-15] MEDS ORDERED: Sodium Chloride 0.9% 500 ML IV SCH (08:30)
[2019-05-15] MEDS: Sevelamer Carbonate 800 MG TAB PO SCH ×3 (08:34→16:09)
[2019-05-15] MEDS: Aspirin Chewable 81 MG TAB PO SCH (08:34)
[2019-05-15] MEDS: Carvedilol 3.125 MG TAB PO SCH ×2 (08:34→20:21)
[2019-05-15] MEDS: Gabapentin 100 MG CAP PO SCH ×3 (08:34→20:22)
[2019-05-15] MEDS: Heparin 5,000 UNITS/ML VIAL SC SCH ×3 (08:35→20:22)
[2019-05-15] MEDS: Pantoprazole 40 MG GRANULES PACKET PER TUBE SCH (08:36)
[2019-05-15] MEDS: Latanoprost 0.005% Ophth Soln 2.5 ml Bottle EA EYE SCH (08:36)
[2019-05-15] MEDS ORDERED: Carvedilol 3.125 MG TAB PO SCH (09:00)
--- NOTE | 2019-05-15 09:02 | RAD ---
Portable chest: HISTORY: Shortness of breath COMPARISON: 05/03/2019 FINDINGS:Cardiomegaly. Mild vascular engorgement. No focal infiltrate. No significant effusion. Posto p sternotomy changes. Prominent aortic calcification. No interval change noted. IMPRESSION: No acute finding
[2019-05-15 09:10] LABS: #Eosinphils 0.3 thou/uL (0.0-0.7); #Monocytes 1.3 thou/uL (0.11-0.59); #Neutrophils 8.5 thou/uL (1.40-6.50); %Basophils 0.1 % (0.0-1.0); %Eosinophils 2.8 % (0.0-10.0); %Lymphocytes 16.5 % (21.0-51.0); %Monocytes 10.8 % (0.0-10.0); %Neutrophils 69.7 % (42.0-75.0); Hemoglobin 14.5 g/dL (14.0-18.0); Mean Corpuscular HGB CONC 32.6 g/dL (32.0-36.0); Mean Platelet Volume 9.3 fL (7.4-10.4); Platelet Count 159 thou/uL (130-400); RBC Distribution Width 13.3 % (11.5-14.5); White Blood Cell (WBC) Count 12.1 thou/uL (4.8-10.8)
[2019-05-15] MEDS: Insulin Glargine 10 UNITS in Pre-Filled Syringe 1 EACH SC SCH ×2 (09:22→20:22)
[2019-05-15] MEDS: levETIRAcetam 100 mg/ml Oral Solution PER TUBE SCH ×2 (09:23→23:34)
[2019-05-15] MEDS ORDERED: Clopidogrel Bisulfate 75 MG TAB ONE (09:34)
[2019-05-15] MEDS ORDERED: Albumin 25% 25 GM/100 ML BOT IVPB ONE (09:53)
[2019-05-15] MEDS: Albumin 25% 25 GM/100 ML BOT IVPB SCH ×3 (10:09→22:26)
--- NOTE | 2019-05-15 10:10 | PRG ---
DATE OF SERVICE: 05/15/2019 SERVICE: Renal Medicine. SUBJECTIVE: Mr. Mancera is an 79-year-old white male with ESRD and currently on maintenance hemodialysis. He underwent hemodialysis yesterday. He was noted to be again agitated during dialysis. He is currently on his antipsychotic medications. He is on Seroquel as well as on p.r.n. Geodon. This morning, he was noted to be on the hypotensive side. Normal saline 500 mL was given. My plan is to add albumin infusion with this patient at 25 g IV q.6. No indication for any emergent dialysis. OBJECTIVE: VITAL SIGNS: Blood pressure is 85/50, heart rate 69, respiratory rate 18, temperature 98.7, pulse ox 93%. GENERAL: Noted to be sedated, comfortable, not in overt distress. SKIN: Adequate turgor. HEENT: Pinkish conjunctivae. Anicteric sclerae. NECK: No neck mass. No carotid bruits. No JVD. CHEST: No deformities. LUNGS: Decreased breath sounds. HEART: Normal sinus rhythm. No murmur. No gallops. No rubs. ABDOMEN: Globular, soft, nontender. No masses. EXTREMITIES: Status post right AKA, status post left BKA. LABORATORY STUDIES: Chest x-ray shows minimally increased lung markings. No infiltrates. May 15, 2019; white count 12.1, hemoglobin 14.5. May 14, 2019; sodium 138, potassium 4.1, chloride 98, carbon dioxide 25, BUN 73, creatinine 6.66, calcium 9.5. ASSESSMENT AND PLAN: 1. Hypotension-the patient might simply be volume depleted. Given normal saline 500 mL/h. Will be bolused with another 250 mL of normal saline. Start albumin infusion 25 g IV q.6 hours. 2. End-stage renal disease. There is no indication for any emergent hemodialysis with this patient. He is tolerating said treatment. 3. Agitation-currently sedated on Seroquel and p.r.n. Geodon. Job ID: [id number]
[2019-05-15] MEDS ORDERED: Sodium Chloride 0.9% 250 ML 250 ML IVPB SCH (10:15)
--- NOTE | 2019-05-15 11:10 | PDOC.HOSPP ---
- Subjective Subjective: Seen and examined this a.m. Had hemodialysis yesterday, now on the dry side. Blood pressure is low end of normal. Patient is talking and mentation is at his baseline. Patient is not having symptoms from is low blood pressure. Patient did spike a little bit of a temperature, I've added blood cultures. Patient CBC is within normal WBC count of 12,000. Will hold antibiotic therapy at this time. Patient may be having low-grade fever from atelectasis. Started breathing treatments. Chest x-ray does not demonstrate any focal pneumonia or any other acute cardiothoracic pathology. Bolus ordered this morning for low blood pressure. Appreciate help from nephrology, starting albumin therapy. My decrease the dose of his oral antihypertensive medication. Patient was agitated in the night and received Geodon, I have increased his Seroquel b.i.d. Blood sugars elevated, starting back with long-acting insulin as he is now getting tube feedings consistently his blood sugars have spiked. - Objective Vital Signs & Weight: Vital Signs (12 hours) Temp Pulse Resp BP BP Pulse Ox 05/15/19 10:54 66 24 H 05/15/19 07:52 98.7 F 69 18 85/50 L 93 L 05/15/19 07:50 88/48 L 05/15/19 06:32 99.7 F H 05/15/19 04:23 100.8 F H 72 18 98/52 L 94 L Weight Admit Weight 217 lb 11.2 oz Weight 188 lb 7.924 oz I&O: 05/14/19 05/15/19 05/16/19 06:59 06:59 06:59 Intake Total 115 880 Output Total 100 Balance 115 780 Result Diagrams: 05/15/19 08:56 05/14/19 04:27 Additional Labs: Accuchecks 05/15/19 05/15/19 05/14/19 06:31 00:12 17:58 POC Glucose 411 H 394 H 251 H 05/14/19 12:01 POC Glucose 339 H Radiology Reviewed by me: Yes Hospitalist ROS - Review of Systems All other systems reviewed; all pertinent +/- noted in HPI/Subj - Medication Medications: Active Medications Generic Name Dose Route Start Last Admin Trade Name Freq PRN Reason Stop Dose Admin Albumin Human 25 gm 05/15/19 10:00 05/15/19 10:09 Albumin 25% IVPB 05/16/19 04:01 25 gm Q6H RENA Administration Albuterol/Ipratropium 3 ml 05/15/19 11:00 05/15/19 10:54 Duoneb NEB 3 ml [id number] RENA Administration Aspirin 81 mg 05/06/19 09:00 05/15/19 08:34 Aspirin Chewable PO 81 mg DAILY RENA Administration Carvedilol 1.5625 mg 05/15/19 09:00 05/15/19 08:34 Coreg PO Not Given BID RENA Epoetin Sean-epbx 7,500 unit 05/04/19 09:00 05/11/19 14:17 Retacrit SC 7,500 unit Q7D RENA Administration Gabapentin 100 mg 05/10/19 15:00 05/15/19 08:34 Neurontin PO 100 mg TID RENA Administration Heparin Sodium (Porcine) 5,000 units 05/04/19 15:00 05/15/19 08:35 Heparin SC 5,000 units TID RENA Administration Insulin Glargine 10 units/ 0.1 mls @ 0 mls/hr 05/15/19 09:00 05/15/19 09:22 Miscellaneous Medication SC 0.1 mls BID RENA Administration Sodium Chloride 250 mls @ 999 mls/hr 05/15/19 10:15 05/15/19 10:09 Normal Saline 0.9% 250 Ml Bag IVPB 05/15/19 12:00 250 mls NOW RENA Administration Insulin Human Lispro 0 units 05/03/19 20:55 05/15/19 06:40 Humalog SC 10 unit .MODERATE SLIDING SC PRN Administration Moderate Correctional Scale Latanoprost 1 drop 05/11/19 09:00 05/15/19 08:36 Xalatan 0.005% Ophth Soln EA EYE 1 drop DAILY RENA Administration Levetiracetam 750 mg 05/14/19 21:00 05/15/19 09:23 Keppra Oral Solution PER TUBE 750 mg BID RENA Administration Pantoprazole Sodium 40 mg 05/15/19 09:00 05/15/19 08:36 Protonix PER TUBE 40 mg DAILY RENA Administration Sevelamer Carbonate 800 mg 05/08/19 12:00 05/15/19 08:34 Renvela PO 800 mg TID-WM RENA Administration Sodium Chloride 10 ml 05/05/19 21:00 05/15/19 08:36 Flush - Normal Saline IVF 10 ml Q12HR RENA Administration - Exam General Appearance: NAD, awake alert Eye: PERRL ENT: normocephalic atraumatic, moist mucosa Neck: supple, symmetric, no lymphadenopathy Heart: no murmur, no gallops, no rubs Respiratory: CTAB, no wheezes, no rales, no ronchi Gastrointestinal: soft, non-tender, non-distended, no guarding, no rigidity Extremities: no edema Skin: no lesions, no rashes Neurological: cranial nerve grossly intact, no focal deficits Musculoskeletal: generalized weakness Psychiatric: oriented to person, flat affect Hosp A/P (1) Anemia due to acute blood loss Code(s): D62 - ACUTE POSTHEMORRHAGIC ANEMIA Status: Resolved (2) GI bleed Code(s): K92.2 - GASTROINTESTINAL HEMORRHAGE, UNSPECIFIED Status: Resolved (3) Volume overload Code(s): E87.70 - FLUID OVERLOAD, UNSPECIFIED Status: Resolved (4) Amputation leg, bilat Code(s): S88.911A - COMPLETE TRAUMATIC AMPUTATION OF R LOW LEG, LEVEL UNSP, INIT ; S88.912A - COMPLETE TRAUMATIC AMPUTATION OF L LOW LEG, LEVEL UNSP, INIT Status: Chronic (5) Anemia, normocytic normochromic Code(s): D64.9 - ANEMIA, UNSPECIFIED Status: Chronic (6) CAD (coronary artery disease) Code(s): I25.10 - ATHSCL HEART DISEASE OF [place] CORONARY ARTERY W/O ANG PCTRS Status: Chronic (7) Chronic combined systolic and diastolic CHF (congestive heart failure) Code(s): I50.42 - CHRONIC COMBINED SYSTOLIC AND DIASTOLIC HRT FAIL Status: Chronic (8) Dementia Code(s): F03.90 - UNSPECIFIED DEMENTIA WITHOUT BEHAVIORAL DISTURBANCE Status: Chronic Qualifiers: (9) Diabetes mellitus type 2 in obese Code(s): E11.69 - TYPE 2 DIABETES MELLITUS WITH OTHER SPECIFIED COMPLICATION; E66.9 - OBESITY, UNSPECIFIED Status: Chronic (10) ESRD (end stage renal disease) on dialysis Code(s): N18.6 - END STAGE RENAL DISEASE; Z99.2 - DEPENDENCE ON RENAL DIALYSIS Status: Chronic (11) HLD (hyperlipidemia) Code(s): E78.5 - HYPERLIPIDEMIA, UNSPECIFIED Status: Chronic Qualifiers: (12) HTN (hypertension) Code(s): I10 - ESSENTIAL (PRIMARY) HYPERTENSION Status: Chronic Qualifiers: (13) PVD (peripheral vascular disease) Code(s): I73.9 - PERIPHERAL VASCULAR DISEASE, UNSPECIFIED Status: Chronic (14) Hypotension Status: Resolved - Plan Plan: Medical unit with telemetry Gastroenterology consultation, recommendations appreciated neurology consultation, recommendations appreciated nephrology consultation, recommendations appreciated palliative care consultation, recommendations appreciated IV fluid bolus Albumin Decrease dose of Carvedilol to avoid hypotension, holding parameters added CXR - without acute pathology CBC - high end of normal WBC count, will repeat tomorrow - hold ABX Low grade fever, hold ABX at this time - may be secondary to atelectasis Add breathing treatments Restart long acting insulin now that blood sugars are elevated with tube feedings 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, 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 mental status is reportedly improved since starting antiepileptic drug - waxes and wanes - was unable to cooperate with MBS on 05/11 Went for MBS on 05/11 and mentation limited him being able to complete study - I was told by speech that he spit everything out and babled with his tongue hanging out his mouth - not following any commands MRI the brain with chronic white matter changes in 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
[2019-05-15] MEDS ORDERED: diphenhydrAMINE 50 MG/ML VIAL IVP PRN (11:15)
[2019-05-15] MEDS ORDERED: Polyethylene Glycol 3350 17 GM Packet PER TUBE PRN (18:14)
[2019-05-15] MEDS ORDERED: levETIRAcetam 500 mg/5 ml Oral Solution PER TUBE SCH (21:45)
[2019-05-16] MEDS ORDERED: Sodium Chloride 0.9% 250 ML IV SCH (00:15)
[2019-05-16] MEDS ORDERED: Bacteriostatic Water 30 ML VIAL FS PRN (00:17)
[2019-05-16 00:23] LABS: #Eosinphils 0.4 thou/uL (0.0-0.7); #Monocytes 1.5 thou/uL (0.11-0.59); #Neutrophils 9.7 thou/uL (1.40-6.50); %Basophils 0.1 % (0.0-1.0); %Eosinophils 3.2 % (0.0-10.0); %Lymphocytes 14.6 % (21.0-51.0); %Monocytes 10.8 % (0.0-10.0); %Neutrophils 71.3 % (42.0-75.0); Mean Corpuscular HGB CONC 33.2 g/dL (32.0-36.0); Mean Corpuscular Hemoglobin 34.1 pg (27.0-31.0); Mean Platelet Volume 9.1 fL (7.4-10.4); Platelet Count 125 thou/uL (130-400); RBC Distribution Width 13.3 % (11.5-14.5); Red Blood Cell (RBC) Count 3.82 mill/uL (4.70-6.10); White Blood Cell (WBC) Count 13.6 thou/uL (4.8-10.8)
[2019-05-16] MEDS ORDERED: Acetaminophen 500 MG TAB PER TUBE PRN (00:31)
[2019-05-16 00:46] LABS: ALT (SGPT) 8 U/L (8-55); AST (SGOT) 18 U/L (5-34); Albumin 3.6 g/dL (3.4-4.8); Alkaline Phosphatase 70 U/L (40-110); Anion Gap 15 mmol/L (10-20); BUN (Urea Nitrogen) 69 mg/dL (8.4-25.7); Bilirubin, Total 0.4 mg/dL (0.2-1.2); Calc. Creatinine Clearance 11 mL/min (70-130); Calcium 9.3 mg/dL (7.8-10.44); Carbon Dioxide 28 mmol/L (23-31); Chloride 96 mmol/L (98-107); Estimated GFR-MDRD 8; Globulin 3.4 g/dL (2.4-3.5); Glucose 341 mg/dL (83-110); Potassium 4.4 mmol/L (3.5-5.1); Sodium 135 mmol/L (136-145)
[2019-05-16] MEDS: HumaLOG 300 UNITS/3 ML VIAL SC PRN ×5 (00:47→23:00)
[2019-05-16] MEDS ORDERED: Clindamycin/D5W 600 MG in Premix Bag 1 BAG IVPB SCH (01:00)
[2019-05-16] MEDS ORDERED: Scopolamine 1.5 mg/72 hour Patch TOP SCH (02:00)
--- NOTE | 2019-05-16 04:01 | PDOC.EVN ---
Event Note - Event Note Event Note: pt in respiratory distress, unable to clear secretions, is not oriented, very lethargic BP around 80/60, spo2 around 90% on 4 lts Lungs: rales+, rhonchi++ Plan: tried calling his daughter and POA multiple times from 1am and again at round 3.55am, unable to reach her very poor prognosis, pt is DNAR, needs intubation has multiple medical issues solumedrol iv, nebs, repeat cxr, scopalamine patch. He had HD yesterday. Will add midodrine via peg. Palliative consultation for inpatient hospice if he survives till am.
[2019-05-16] MEDS: Albumin 25% 25 GM/100 ML BOT IVPB SCH (04:56)
[2019-05-16] MEDS: DOPamine 400 MG/D5W 250 ML 250 ML IVPB SCH ×2 (05:41→21:38)
[2019-05-16] MEDS: methylPREDNISolone Sod Succ 40 MG VIAL IVP SCH ×3 (06:53→17:23)
[2019-05-16] MEDS ORDERED: Vancomycin HCl 750 MG in Sodium Chloride 0.9% 250 ML 250 ML IVPB SCH (07:30)
[2019-05-16] MEDS ORDERED: Vancomycin HCl 500 MG in Sodium Chloride 0.9% 100 ML IVPB SCH (07:30)
[2019-05-16] MEDS ORDERED: Vancomycin HCl 1 GM in Premix Bag 1 BAG IVPB SCH ×2 (07:30→09:00)
[2019-05-16] MEDS ORDERED: HOLD VANCOMYCIN FOR LEVEL >20 FS SCH (07:30)
[2019-05-16] MEDS ORDERED: Vancomycin Sliding Scale 1 EACH FS ONE (07:30)
[2019-05-16] MEDS ORDERED: Vancomycin HCl 1.25 GM in Sodium Chloride 0.9% 250 ML 250 ML IVPB SCH (07:30)
[2019-05-16] MEDS: Aspirin Chewable 81 MG TAB PO SCH (08:33)
[2019-05-16] MEDS: Pantoprazole 40 MG GRANULES PACKET PER TUBE SCH (08:33)
[2019-05-16] MEDS: Insulin Glargine 10 UNITS in Pre-Filled Syringe 1 EACH SC SCH ×2 (08:33→22:22)
[2019-05-16] MEDS: Gabapentin 100 MG CAP PO SCH ×3 (08:33→22:22)
[2019-05-16] MEDS: Sevelamer Carbonate 800 MG TAB PO SCH ×3 (08:33→15:24)
[2019-05-16] MEDS: Heparin 5,000 UNITS/ML VIAL SC SCH ×3 (08:33→22:22)
[2019-05-16] MEDS: Latanoprost 0.005% Ophth Soln 2.5 ml Bottle EA EYE SCH (08:34)
[2019-05-16] MEDS: Cefepime 1 GM in Sodium Chloride 0.9% 100 ML IVPB SCH ×2 (08:34→22:22)
[2019-05-16] MEDS: levETIRAcetam 500 mg/5 ml Oral Solution PER TUBE SCH ×2 (08:35→22:22)
[2019-05-16] MEDS: Midodrine HCl 5 MG TAB PO SCH ×3 (08:35→22:23)
[2019-05-16] MEDS ORDERED: levETIRAcetam 500 mg/5 ml Oral Solution PER TUBE SCH (09:00)
[2019-05-16] MEDS ORDERED: Insulin Glargine 10 UNITS in Pre-Filled Syringe 1 EACH SC SCH (09:00)
--- NOTE | 2019-05-16 09:03 | PRG ---
DATE OF SERVICE: SUBJECTIVE: Mr. Mancera is an 79-year-old white male with known history of ESRD and currently on maintenance hemodialysis. He developed acute respiratory distress. Last night, I was not able to clear his secretions. He was also noted to be on the hypotensive side in the last 24 hours. Midodrine has been started. IV infusion with crystalloids and colloids has also been started. The patient's family is here. They do anticipate eventual expiration of the patient. They are trying to consider hospice at the present time. OBJECTIVE: VITAL SIGNS: Blood pressure is 95/51, heart rate 72, respiratory rate 24, temperature 96.2, and pulse ox 92%. GENERAL: Noted to be sedated, comfortable, obese, not in distress. SKIN: Adequate turgor. HEENT: Pinkish conjunctivae. Anicteric sclerae. NECK: No neck mass. No carotid bruits. No JVD. CHEST: No deformities. LUNGS: Decreased breath sounds. HEART: Normal sinus rhythm. No murmur. No gallops. No rubs. ABDOMEN: Globular, soft, nontender. No masses. EXTREMITIES: Bilateral leg amputation. MEDICATIONS: Medications of May 16, 2019 has been reviewed. LABORATORY DATA: Laboratories of May 16, 2019; white count 13.6, hemoglobin 13. Sodium 135, potassium 4.4, chloride 96, carbon dioxide 28, BUN 69, creatinine 6.43, glucose 341. AST 18, ALT 8, albumin is 3.6. ASSESSMENT AND PLAN: 1. Acute respiratory distress-clinically improved today. Chest x-ray yesterday did show slight increased lung markings, but no overt congestive heart failure. 2. Decreased mentation, underlying dementia. His goal also be related from his antipsychotic medications. 3. End-stage renal disease, stable. I do not see any indication for any dialytic intervention. Continue supportive care. 4. Hypotension, currently started on midodrine. Continue crystalloid and colloids support. Job ID: [id number]
--- NOTE | 2019-05-16 09:17 | RAD ---
CHEST 1 VIEW: INDICATION: Hypotensive with desaturations. COMPARISON: Prior exam dated 05/15/2019. IMPRESSION: There is stable mild cardiomegaly. No consolidation, pleural effusion, or pneumothorax is evident. Displaced sternotomy wires are stable. Osseous structures are unchanged. Vascular calcifications an d aortic arch are stable. POS: BH
--- NOTE | 2019-05-16 11:46 | PDOC.HOSPP ---
- Subjective Subjective: Seen and examined. Patient with respiratory distress of the night requiring deep suction with thick mucus output. Patient with week cough. Blood pressure remains on the low side requiring albumin and my to dream. Started on dopamine in the night. Patient with fever and slightly increased WBC count, starting broad-spectrum IV antibiotics. Patient's 3 daughters at bedside, all questions answered in detail. They understand that the long-term prognosis remains guarded. They are okay with medical management, though they continue to request to do not resuscitate to not intubate status. - Objective Vital Signs & Weight: Vital Signs (12 hours) Temp Pulse Resp BP BP Pulse Ox 05/16/19 07:49 98.6 F 82 20 100/54 L 94 L 05/16/19 07:03 93 L 05/16/19 07:02 82 16 05/16/19 04:00 98.8 F 05/16/19 03:32 96.2 F L 72 24 H 95/51 L 92 L 05/16/19 02:59 85 95/51 L 05/16/19 02:56 72 76/41 L 05/16/19 02:33 103/53 L 05/16/19 02:16 99.0 F 74 20 73/38 L 87 L 05/16/19 00:44 71 20 94 L 05/16/19 00:36 100.8 F H 79/49 L Weight Admit Weight 217 lb 11.2 oz Weight 200 lb 2.876 oz I&O: 05/15/19 05/16/19 05/17/19 06:59 06:59 06:59 Intake Total 1410 1610 Output Total 100 0 Balance 1310 1610 Result Diagrams: 05/16/19 00:17 05/16/19 00:17 Additional Labs: Accuchecks 05/16/19 05/16/19 05/15/19 06:28 00:52 18:03 POC Glucose 234 H 336 H 360 H 05/15/19 12:20 POC Glucose 305 H Radiology Reviewed by me: Yes Hospitalist ROS - Review of Systems All other systems reviewed; all pertinent +/- noted in HPI/Subj - Medication Medications: Active Medications Generic Name Dose Route Start Last Admin Trade Name Freq PRN Reason Stop Dose Admin Acetaminophen 500 mg 05/16/19 00:31 05/16/19 00:47 Tylenol PER TUBE 05/17/19 00:32 500 mg ONE PRN Administration Headache/Fever or Pain Albuterol/Ipratropium 3 ml 05/15/19 11:00 05/16/19 07:02 Duoneb NEB 3 ml [id number] RENA Administration Aspirin 81 mg 05/06/19 09:00 05/16/19 08:33 Aspirin Chewable PO 81 mg DAILY RENA Administration Epoetin Sean-epbx 7,500 unit 05/04/19 09:00 05/11/19 14:17 Retacrit SC 7,500 unit Q7D RENA Administration Gabapentin 100 mg 05/10/19 15:00 05/16/19 08:33 Neurontin PO 100 mg TID RENA Administration Heparin Sodium (Porcine) 5,000 units 05/04/19 15:00 05/16/19 08:33 Heparin SC 5,000 units TID RENA Administration Insulin Glargine 10 units/ 0.1 mls @ 0 mls/hr 05/15/19 09:00 05/16/19 08:33 Miscellaneous Medication SC 0.1 mls BID RENA Administration Dopamine HCl/Dextrose 250 mls @ 16.031 mls/hr 05/16/19 04:15 05/16/19 05:41 Dopamine 400 Mg/D5w 250 Ml IVPB 250 mls INF RENA Administration Protocol 5 MCG/KG/MIN Cefepime HCl 1 gm/ Sodium 100 mls @ 200 mls/hr 05/16/19 09:00 05/16/19 08:34 Chloride IVPB 100 mls Q12HR RENA Administration Vancomycin HCl 2 gm/ Sodium 500 mls @ 500 mls/hr 05/16/19 09:00 05/16/19 10: 05 Chloride IVPB 05/16/19 12:00 500 mls NOW RENA Administration Insulin Human Lispro 0 units 05/03/19 20:55 05/16/19 06:53 Humalog SC 4 unit .MODERATE SLIDING SC PRN Administration Moderate Correctional Scale Latanoprost 1 drop 05/11/19 09:00 05/16/19 08:34 Xalatan 0.005% Ophth Soln EA EYE 1 drop DAILY RENA Administration Levetiracetam 500 mg 05/16/19 09:00 05/16/19 08:35 Keppra Oral Solution PER TUBE 500 mg BID RENA Administration Methylprednisolone Sodium Succinate 40 mg 05/16/19 06:00 05/16/19 06:53 Solu-Medrol IVP 40 mg Q6HR ERNA Administration Midodrine 5 mg 05/16/19 09:00 05/16/19 08:35 Proamatine PO 5 mg TID RENA Administration Pantoprazole Sodium 40 mg 05/15/19 09:00 05/16/19 08:33 Protonix PER TUBE 40 mg DAILY RENA Administration Quetiapine Fumarate 50 mg 05/16/19 09:00 05/16/19 08:33 Seroquel PO 50 mg BID RENA Administration Scopolamine 1.5 mg 05/16/19 02:00 05/16/19 02:23 Transderm Scop TOP 1.5 mg Q3D RENA Administration Sevelamer Carbonate 800 mg 05/08/19 12:00 05/16/19 08:33 Renvela PO 800 mg TID-WM RENA Administration Sodium Chloride 10 ml 05/05/19 21:00 05/16/19 08:35 Flush - Normal Saline IVF 10 ml Q12HR RENA Administration - Exam General Appearance: NAD Eye: PERRL ENT: normocephalic atraumatic, moist mucosa Neck: supple, symmetric, no lymphadenopathy Heart: no murmur, no gallops, no rubs Respiratory: no rales, normal chest expansion, rhonchi, wheezes Gastrointestinal: soft, non-tender, non-distended, normal bowel sounds, no guarding, no rigidity Extremities: no edema Skin: no lesions, no rashes Neurological: cranial nerve grossly intact, no focal deficits Musculoskeletal: generalized weakness Psychiatric: flat affect, somnolent Hosp A/P (1) Anemia due to acute blood loss Code(s): D62 - ACUTE POSTHEMORRHAGIC ANEMIA Status: Resolved (2) GI bleed Code(s): K92.2 - GASTROINTESTINAL HEMORRHAGE, UNSPECIFIED Status: Resolved (3) Volume overload Code(s): E87.70 - FLUID OVERLOAD, UNSPECIFIED Status: Resolved (4) Amputation leg, bilat Code(s): S88.911A - COMPLETE TRAUMATIC AMPUTATION OF R LOW LEG, LEVEL UNSP, INIT ; S88.912A - COMPLETE TRAUMATIC AMPUTATION OF L LOW LEG, LEVEL UNSP, INIT Status: Chronic (5) Anemia, normocytic normochromic Code(s): D64.9 - ANEMIA, UNSPECIFIED Status: Chronic (6) CAD (coronary artery disease) Code(s): I25.10 - ATHSCL HEART DISEASE OF [place] CORONARY ARTERY W/O ANG PCTRS Status: Chronic (7) Chronic combined systolic and diastolic CHF (congestive heart failure) Code(s): I50.42 - CHRONIC COMBINED SYSTOLIC AND DIASTOLIC HRT FAIL Status: Chronic (8) Dementia Code(s): F03.90 - UNSPECIFIED DEMENTIA WITHOUT BEHAVIORAL DISTURBANCE Status: Chronic Qualifiers: (9) Diabetes mellitus type 2 in obese Code(s): E11.69 - TYPE 2 DIABETES MELLITUS WITH OTHER SPECIFIED COMPLICATION; E66.9 - OBESITY, UNSPECIFIED Status: Chronic (10) ESRD (end stage renal disease) on dialysis Code(s): N18.6 - END STAGE RENAL DISEASE; Z99.2 - DEPENDENCE ON RENAL DIALYSIS Status: Chronic (11) HLD (hyperlipidemia) Code(s): E78.5 - HYPERLIPIDEMIA, UNSPECIFIED Status: Chronic Qualifiers: (12) HTN (hypertension) Code(s): I10 - ESSENTIAL (PRIMARY) HYPERTENSION Status: Chronic Qualifiers: (13) PVD (peripheral vascular disease) Code(s): I73.9 - PERIPHERAL VASCULAR DISEASE, UNSPECIFIED Status: Chronic (14) Hypotension Status: Resolved - Plan Plan: Medical unit with telemetry Gastroenterology consultation, recommendations appreciated neurology consultation, recommendations appreciated nephrology consultation, recommendations appreciated palliative care consultation, recommendations appreciated IV fluid bolus Albumin Decrease dose of Carvedilol to avoid hypotension, holding parameters added CXR - without acute pathology CBC - high end of normal WBC count, will repeat tomorrow - hold ABX Low grade fever Start broad spectrum IV ABX Continue breathing treatments, deep suctioning Continue long acting insulin, as long as tube feedings are running. 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
[2019-05-17] MEDS ORDERED: Dextrose 5% in Water 1,000 ML IV PRN (01:05)
[2019-05-17] MEDS ORDERED: Dextrose 50% Abboject 50 ML SYRINGE SLOW IVP PRN (01:05)
[2019-05-17] MEDS: methylPREDNISolone Sod Succ 40 MG VIAL IVP SCH ×3 (01:08→12:36)
[2019-05-17] MEDS ORDERED: HumaLOG 300 UNITS/3 ML VIAL SC SCH (01:15)
[2019-05-17] MEDS: HumaLOG 300 UNITS/3 ML VIAL SC PRN ×2 (06:07→16:29)
--- NOTE | 2019-05-17 08:57 | PRG ---
DATE OF SERVICE: 05/17/2019 SERVICE: Renal Medicine. SUBJECTIVE: Mr. Mancera is an 79-year-old white male with ESRD and currently on maintenance hemodialysis. He is undergoing dialysis today. Blood pressure has been running low in the last couple of days. He is being treated for possible infection. He is on empiric IV antibiotics. He has also been started with dopamine and albumin infusion. No other acute events noted last night. OBJECTIVE: VITAL SIGNS: Blood pressure 116/59, heart rate 82, respiratory rate 20, temperature 99.8, pulse ox 94%. GENERAL: The patient is lethargic, arousable, not in distress. SKIN: Adequate turgor. HEENT: Pinkish conjunctivae. Anicteric sclerae. NECK: No neck mass. No carotid bruits. No JVD. CHEST: No deformities. LUNGS: Clear breath sounds. HEART: Normal sinus rhythm. No murmur. No gallops. No rubs. ABDOMEN: Globular, soft, nontender. No masses. EXTREMITIES: Bilateral leg amputation. MEDICATIONS: Medications of May 17, 2019, was reviewed. LABORATORY DATA: Laboratories of May 16, 2019, showed white count of 13.6, hemoglobin was 13. Sodium 135, potassium 4.4, chloride 96, carbon dioxide 28, BUN 69, creatinine 6.43. On May 17, 2019, glucose noted at greater than 550. ASSESSMENT AND PLAN: 1. End-stage renal disease, stable. We will continue current hemodialysis regimen. Fluid removal only as tolerated by the patient. 2. Elevated blood sugar-on p.r.n. insulin. 3. Hypotension. Currently on dopamine support. Minimal fluid removal or fluid removal only as tolerated with this dialysis today. Overall prognosis remains guarded. Job ID: [id number]
[2019-05-17] MEDS ORDERED: Insulin Glargine 15 UNITS in Pre-Filled Syringe 1 EACH SC SCH ×2 (09:00→21:00)
[2019-05-17] MEDS ORDERED: Insulin Glargine 30 UNITS in Pre-Filled Syringe 1 EACH SC SCH (09:00)
[2019-05-17 09:02] LABS: Vancomycin, Trough 16.7 ug/mL
--- NOTE | 2019-05-17 10:55 | PDOC.HOSPP ---
- Subjective Encounter Date: 05/17/19 Encounter Time: 10:50 non-verbal - Objective Vital Signs & Weight: Vital Signs (12 hours) Temp Pulse Resp BP Pulse Ox 05/17/19 07:45 99.8 F H 82 20 116/59 L 94 L 05/17/19 04:00 99.7 F H 86 20 103/57 L 93 L 05/17/19 00:00 99.5 F 83 20 111/55 L 94 L Weight Admit Weight 217 lb 11.2 oz Weight 200 lb 2.876 oz I&O: 05/16/19 05/17/19 05/18/19 06:59 06:59 06:59 Intake Total 1610 2093 Output Total 0 Balance 1610 2092 Result Diagrams: 05/16/19 00:17 05/16/19 00:17 Additional Labs: Accuchecks 05/17/19 05/17/19 05/17/19 05:51 02:04 00:57 POC Glucose 494 H 501 H Greater than 550 H* 05/16/19 05/16/19 05/16/19 23:00 18:09 11:48 POC Glucose 533 H 423 H 304 H Hospitalist ROS - Medication Medications: Active Medications Generic Name Dose Route Start Last Admin Trade Name Freq PRN Reason Stop Dose Admin Albuterol/Ipratropium 3 ml 05/15/19 11:00 05/17/19 08:22 Duoneb NEB Not Given D2OD-NW-ZD RENA Aspirin 81 mg 05/06/19 09:00 05/16/19 08:33 Aspirin Chewable PO 81 mg DAILY RENA Administration Epoetin Sean-epbx 7,500 unit 05/04/19 09:00 05/11/19 14:17 Retacrit SC 7,500 unit Q7D RENA Administration Heparin Sodium (Porcine) 5,000 units 05/04/19 15:00 05/16/19 22:22 Heparin SC 5,000 units TID RENA Administration Dopamine HCl/Dextrose 250 mls @ 16.031 mls/hr 05/16/19 04:15 05/16/19 21:38 Dopamine 400 Mg/D5w 250 Ml IVPB 250 mls INF RENA Administration Protocol 5 MCG/KG/MIN Cefepime HCl 1 gm/ Sodium 100 mls @ 200 mls/hr 05/16/19 09:00 05/16/19 22:22 Chloride IVPB 100 mls Q12HR RENA Administration Insulin Human Lispro 0 units 05/03/19 20:55 05/16/19 23:00 Humalog SC 10 unit .MODERATE SLIDING SC PRN Administration Moderate Correctional Scale Insulin Human Lispro 0 units 05/17/19 01:05 05/17/19 06:07 Humalog SC 13 unit .AGGRESSIVE SLIDING PRN Administration Aggressive Correctional Scale Latanoprost 1 drop 05/11/19 09:00 05/16/19 08:34 Xalatan 0.005% Ophth Soln EA EYE 1 drop DAILY RENA Administration Levetiracetam 500 mg 05/16/19 09:00 05/16/19 22:22 Keppra Oral Solution PER TUBE 500 mg BID RENA Administration Methylprednisolone Sodium Succinate 40 mg 05/16/19 06:00 05/17/19 06:07 Solu-Medrol IVP 40 mg Q6HR RENA Administration Midodrine 5 mg 05/16/19 09:00 05/16/19 22:23 Proamatine PO 5 mg TID RENA Administration Pantoprazole Sodium 40 mg 05/15/19 09:00 05/16/19 08:33 Protonix PER TUBE 40 mg DAILY RENA Administration Quetiapine Fumarate 50 mg 05/16/19 09:00 05/16/19 22:23 Seroquel PO 50 mg BID RENA Administration Scopolamine 1.5 mg 05/16/19 02:00 05/16/19 02:23 Transderm Scop TOP 1.5 mg Q3D RENA Administration Sevelamer Carbonate 800 mg 05/08/19 12:00 05/16/19 15:24 Renvela PO 800 mg TID-WM RENA Administration Sodium Chloride 10 ml 05/05/19 21:00 05/16/19 22:23 Flush - Normal Saline IVF 10 ml Q12HR RENA Administration Sterile Water 1 ml 05/16/19 00:17 05/17/19 01:08 Bacteriostatic Water FS 1 ml PRN PRN Administration RECONSTITUTION - Exam General - other findings: Not responding to verbal stim or tactile stim. Heart: RRR, no murmur, no gallops Respiratory - other findings: Rales, ronchi. Gastrointestinal: soft, non-distended, normal bowel sounds, no palpable masses Extremities - other findings: BLE amputations. Musculoskeletal - other findings: RUE diffuse edema. Psychiatric: lethargic Hosp A/P (1) Volume overload Code(s): E87.70 - FLUID OVERLOAD, UNSPECIFIED Status: Acute (2) Acute metabolic encephalopathy Code(s): G93.41 - METABOLIC ENCEPHALOPATHY Status: Acute (3) Dysphagia Code(s): R13.10 - DYSPHAGIA, UNSPECIFIED Status: Acute Qualifiers: Dysphagia type: oropharyngeal phase Qualified Code(s): R13.12 - Dysphagia, oropharyngeal phase (4) Acute respiratory failure Code(s): J96.00 - ACUTE RESPIRATORY FAILURE, UNSP W HYPOXIA OR HYPERCAPNIA Status: Acute (5) Bronchitis Code(s): J40 - BRONCHITIS, NOT SPECIFIED ACUTE OR CHRONIC Status: Acute (6) Amputation leg, bilat Code(s): S88.911A - COMPLETE TRAUMATIC AMPUTATION OF R LOW LEG, LEVEL UNSP, INIT ; S88.912A - COMPLETE TRAUMATIC AMPUTATION OF L LOW LEG, LEVEL UNSP, INIT Status: Chronic (7) Anemia, normocytic normochromic Code(s): D64.9 - ANEMIA, UNSPECIFIED Status: Chronic (8) CAD (coronary artery disease) Code(s): I25.10 - ATHSCL HEART DISEASE OF [place] CORONARY ARTERY W/O ANG PCTRS Status: Chronic (9) Chronic combined systolic and diastolic CHF (congestive heart failure) Code(s): I50.42 - CHRONIC COMBINED SYSTOLIC AND DIASTOLIC HRT FAIL Status: Chronic (10) Dementia Code(s): F03.90 - UNSPECIFIED DEMENTIA WITHOUT BEHAVIORAL DISTURBANCE Status: Chronic Qualifiers: (11) Diabetes mellitus type 2 in obese Code(s): E11.69 - TYPE 2 DIABETES MELLITUS WITH OTHER SPECIFIED COMPLICATION; E66.9 - OBESITY, UNSPECIFIED Status: Chronic (12) ESRD (end stage renal disease) on dialysis Code(s): N18.6 - END STAGE RENAL DISEASE; Z99.2 - DEPENDENCE ON RENAL DIALYSIS Status: Chronic (13) HLD (hyperlipidemia) Code(s): E78.5 - HYPERLIPIDEMIA, UNSPECIFIED Status: Chronic Qualifiers: (14) HTN (hypertension) Code(s): I10 - ESSENTIAL (PRIMARY) HYPERTENSION Status: Chronic Qualifiers: (15) PVD (peripheral vascular disease) Code(s): I73.9 - PERIPHERAL VASCULAR DISEASE, UNSPECIFIED Status: Chronic (16) Hypotension Status: Resolved - Plan Had worsening respiratory status last night. BP dropped further. Family could not be reached. Dopamine started. BP improved. Now in dialysis. Pulled out IV. HD on left. RUE edema so IV/mainline not feasible. BP dropped again when IV out. Currently has Dopamine running via the dialysis line. Discussed with Palliative Care. Will need to have decision made soon regarding the families desire to continue pressors which will require a central line. Alternatively, the patient would be made comfort care or hospice. Have not been able to resolve his fluid overload with HD because his BP would not tolerate any volume removal. Getting a little off today due to the dopamine. Unfortunately, bp is pressor dependent now.
[2019-05-17] MEDS ORDERED: Scopolamine 1.5 mg/72 hour Patch TOP SCH (12:30)
[2019-05-17] MEDS: Cefepime 1 GM in Sodium Chloride 0.9% 100 ML IVPB SCH (12:33)
[2019-05-17] MEDS: Heparin 5,000 UNITS/ML VIAL SC SCH ×2 (12:34→15:57)
[2019-05-17] MEDS: Midodrine HCl 5 MG TAB PO SCH ×2 (12:35→15:59)
--- NOTE | 2019-05-17 12:43 | PDOC.PALCO ---
Palliative Care Consult - Consult Details Requesting Physician: Dr Paiz Reason for Consult: goals of care, advance directives assistance, complex decision-making Family Members Present: Step Daughter Ying and her sister and patient step son. - Pertinent HPI 79 year old male who was recently at [facility], on outpatient dialysis. Family noted that patient was having increase in confusion, and his history was that confusion was usually paired with an infection. He was taken to the emergency room where he underwent evaluation for altered mental status. Patient was admitted for medical management of encephalopathy that was believed to be related to both CHF as well as URI. Admission evolved and patient has continued with confusion, as well as requiring pressors to maintain blood pressure. Difficulty in maintaining peripheral IV access as patient continues to remove. Continued respiratory compromise, with difficulty in removing optimal amount of fluid with dialysis secondary to fragile cardiovascular state. - Pertinent PMH CHF Systolic, HTN, DM, ESRD on dialysis, Dementia, Chronic Anemia - Social History Smoking Status: Unknown if ever smoked Smoking: no tobacco exposure Alcohol Use: none Drug Use History: none Living Situation: [facility] resident - Medications MAR Reviewed: Yes - Allergies Allergies/Adverse Reactions: Allergies Allergy/AdvReac Type Severity Reaction Status Date / Time acetaminophen [From [place]] Allergy pts family Verified 04/18/18 16:26 notes [place] made him violent hydrocodone [From [place]] Allergy pts family Verified 04/18/18 16:26 notes [place] made him violent zolpidem [From Ambien] AdvReac Verified 04/18/18 11:21 - Subjective Verbal but confused. Unable to perform a ROS secondary to confusion. - ROS Non Response: due to mental status - Objective Vital Signs: Vital Signs - Most Recent Temp Pulse Resp BP Pulse Ox 99.8 F H 82 20 116/59 L 94 L 05/17/19 07:45 05/17/19 07:45 05/17/19 07:45 05/17/19 07:45 05/17/19 07:45 Palliative Performance Scale: 30 - Physical Exam Constitutional: confusion, encephalitic, ill appearing HEENT: moist MMs, sclera anicteric Deviation from normal: adventicious lung sounds Cardiovascular: RRR Gastrointestinal: positive bowel sounds, incontinent Musculoskeletal: edema present (Upper ext edema) Deviation from normal: Bilateral lower extremity amputation Deviation from normal: confused, encephalopathic Skin: cap refill <2 seconds Deviation from normal: mildly aggitated, confused - Problem List (1) Palliative care encounter Code(s): Z51.5 - ENCOUNTER FOR PALLIATIVE CARE Current Visit: Yes Status: Acute (2) Acute metabolic encephalopathy Code(s): G93.41 - METABOLIC ENCEPHALOPATHY Current Visit: Yes Status: Acute (3) Chronic combined systolic and diastolic CHF (congestive heart failure) Code(s): I50.42 - CHRONIC COMBINED SYSTOLIC AND DIASTOLIC HRT FAIL Current Visit: No Status: Chronic (4) Dementia Code(s): F03.90 - UNSPECIFIED DEMENTIA WITHOUT BEHAVIORAL DISTURBANCE Current Visit: No Status: Chronic Qualifiers: (5) Diabetes mellitus type 2 in obese Code(s): E11.69 - TYPE 2 DIABETES MELLITUS WITH OTHER SPECIFIED COMPLICATION; E66.9 - OBESITY, UNSPECIFIED Current Visit: No Status: Chronic (6) ESRD (end stage renal disease) on dialysis Code(s): N18.6 - END STAGE RENAL DISEASE; Z99.2 - DEPENDENCE ON RENAL DIALYSIS Current Visit: No Status: Chronic (7) Hypotension Current Visit: No Status: Resolved - Plan/Recommendations Plan: Spoke with Ying guevara stepdaughter on the phone this morning subsequently meeting with she and her sister in the room. Discussed the fragile state of her Step dad, and goals of care. Discussion in relation to patient confusion impacting care as he continues to remove IV access, which he is receiving dopamine. Discussed with family that a central vascular access would need to be perused if they desired to continue with treatment. Discussed chronic conditions and continued trajectory. Family weighed decision and has opted for comfort measures and hospice care. *Scopolamine increased as patient continues to have difficulty mitigating secretions, will also add Atropine PRN as well. *Dr Richey and Aishwarya CM notified, order placed for Hospice. Family requesting In patient or GIP. *Palliative Care will continue to support patient and family during course of stay and promote a seamless transition to hospice care. [75] minutes spent on this encounter with >50% of the time in counseling and coordination of care. Thank you for this very appropriate consult.
[2019-05-17] MEDS: levETIRAcetam 500 mg/5 ml Oral Solution PER TUBE SCH (12:44)
[2019-05-17] MEDS: Latanoprost 0.005% Ophth Soln 2.5 ml Bottle EA EYE SCH (12:44)
[2019-05-17] MEDS: Pantoprazole 40 MG GRANULES PACKET PER TUBE SCH (12:45)
[2019-05-17] MEDS: Sevelamer Carbonate 800 MG TAB PO SCH ×2 (12:45)
[2019-05-17] MEDS: Aspirin Chewable 81 MG TAB PO SCH (12:46)
[2019-05-17] MEDS ORDERED: Atropine Sulfate 1% Ophth Soln 5 ml Bottle PO PRN (13:00)
[2019-05-17] MEDS ORDERED: CEFEPIME IVPB PRN (13:07)
[2019-05-17] MEDS ORDERED: traMADol HCl 50 MG TAB PER TUBE PRN (15:15)
[2019-05-17 15:30] VITALS: BP 99/51; TEMP 97.4
[2019-05-17] MEDS ORDERED: Lorazepam 1 MG TAB PER TUBE PRN (15:54)
[2019-05-17] MEDS ORDERED: Cefepime 0.5 GM, Admixture Fee 1 EACH in Sodium Chloride 0.9% 100 ML IVPB SCH (18:00)
--- NOTE | 2019-05-18 01:59 | PQF ---
CARLOS EDUARDO GONSALEZ ERIK [id number] CLINICAL DOCUMENTATION CLARIFICATION FORM: POST DISCHARGE Addendum to original discharge summary date: ____ Late entry note date: __ DATE: 05/18/19 ATTN: Clifford Handley Please exercise your independent, professional judgment in responding to the clarification form. Clinical indicators are provided on the bottom of this form for your review Can you please further clarify the etiology of Metabolic encephalopathy? Please check appropriate box(s): [ ] Seizure disorder [ ] Encephalopathy due to antipsychotic drugs [ ] JUAN on ESRD [ ] Metabolic encephalopathy of unknown etiology [ XX ] Other diagnosis please specify ____Multifactorial - please query specialist Dr Jo for further etiology of encephalopathy [ ] Unable to determine In addition, please specify: Present on Admission (POA): [ XX ] Yes [ ] No [ ] Unable to determine For continuity of documentation, please document condition throughout progress notes and discharge summary. Thank You. CLINICAL INDICATORS - SIGNS / SYMPTOMS / LABS PN 05/10 Dr. Alas pg.1- persistent encephalopathy likely multifactorial including ESRD, uremia,dementia H and P pg.1- altered mental status H and P pg.3- metabolic encephalopathy on baseline dementia Consult Dr. Jo pg.1- variable mental status with transient expressive aphasia suggesting the possibility of subclinical seizure Hospitalist PN 05/05 Dr. House- acute encephalopathy- unknown cause PN 05/07 Dr. Sainz- decreased mentation secondary to his antipsychotic medication Hospitalist PN Dr. Parkinson 05/16 pg.9-altered mental status is reportedly improved since starting antiepileptic drug- waxes and wanes RISK FACTORS Hypertension- H and P pg.2 Diabetes Mellitus- H and P pg.1 ESRD- H and P pg.1 Dementia- H and P pg.1 Chronic systolic CHF- H and P pg.1 79 years old- H and P pg.1 TREATMENTS: Keppra 500,g twice a day-Consult Dr. Jo pg.1 Electrophysiology procedure 05/04 Brain MRI 05/05 Palliative Consult 05/17 Dr. Turcios Neurology Consult Dr. Jo IV Fluids- MAR (This form is maintained as a part of the permanent medical record) 2014 [employer]. All Rights Reserved Rodríguez [email or web address] [not provided] MTDD
--- NOTE | 2019-05-18 08:44 | DIS ---
DATE OF ADMISSION: 05/05/2019 DATE OF DISCHARGE: 05/17/2019 DISCHARGE DIAGNOSES: 1. Metabolic encephalopathy. 2. End-stage renal disease, on dialysis. 3. Volume overload. 4. Gastrointestinal bleed. 5. Acute blood loss anemia. 6. History of bilateral lower extremity amputations. 7. Coronary artery disease. 8. Combined systolic and diastolic congestive heart failure. 9. Hypotension. 10. Diabetes mellitus. 11. Hyperlipidemia. 12. History of hypertension. 13. Peripheral vascular disease. HISTORY OF PRESENT ILLNESS: This patient is an 79-year-old male who presented to the hospital with some intermittent alterations in his overall mental status. The patient had an initial chest x-ray and brain CT, which did not reveal any acute findings. He was subsequently hospitalized, seen in consultation by Nephrology, who continued dialysis. 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 He had carotid Dopplers, which showed no evidence of hemodynamically significant stenosis. He was seen in consultation by Neurology, who thought he might have been having some subclinical seizures given the waxing and waning nature of the mental status. He was started on Keppra. However, his EEG showed some diffuse slowing with no epileptiform focus. The patient continued to be encephalopathic and then GI was consulted for PEG tube placement as his mental status was such that he could not adequately take nutrition due to some oropharyngeal dysphagia. Subsequent prior to the placement of the tube, the patient rallied a little bit. His mental status improved. However, he had a recurrence of the encephalopathy and PEG tube was ultimately placed. He subsequently had some evidence of GI bleeding, placed on PPI, had some mild anemia. However, the patient continued to developed generalized volume overload causing some difficulty with respirations. However, he also developed hypotension and was unable to have adequate amounts of volume removed with dialysis due to the hypotension. After a couple days, the patient had an episode during the night in which he had some worsening respiratory compromise. The family could not immediately be reached and the patient was started on dopamine in order to maintain his blood pressure. On the day of discharge, the patient had been on the dopamine for a matter of hours. He went to dialysis and there with his encephalopathy, he pulled out his IV given his dialysis graft on the left side and some generalized edema of his right arm making a peripheral IV or vein line impossible. Our only option was central line if we were going to continue with the dopamine. Palliative Care was contacted. The dialysis nurse indicated that the patient's blood pressure dropped again once the IV was out and the dopamine had been stopped and it appeared that his blood pressure was largely pressor dependent, this conversation occurred between the palliative care team and the patient's family and ultimately they decided not to pursue placement of central lines and wanted to pursue hospice intervention. Subsequently, Hospice was consulted. He was accepted for inpatient hospice care and will be transferred to their service. At the time of discharge, temperature was 97.4, pulse 76, respirations 20, O2 saturation was 92% on 4 L, BP was 99/51. He was obtunded and not responding to verbal or tactile stimuli. For the remainder of physical exam, please see the progress note dated same day as discharge. DISPOSITION: The patient will be discharged to inpatient hospice. His activity is as tolerated. Tube feedings will be with Glucerna and he will have medications managed through the hospice team. TIME SPENT: Total time in discharge activities was 47 minutes. Job ID: [id number]
--- NOTE | 2019-05-21 19:22 | PQF ---
[employer] Winform Viewer CARLOS EDUARDO NASH TODD A MD [id number] CLINICAL DOCUMENTATION CLARIFICATION FORM: POST DISCHARGE Addendum to original discharge summary date: ____ Late entry note date: __ DATE: 05/21/19 ATTN: Rufus Overton Please exercise your independent, professional judgment in responding to the clarification form. Clinical indicators are provided on the bottom of this form for your review Can you please further clarify the etiology' of Metabolic encephalopathy? Please check appropriate box(s): [ ] Seizure disorder [ ] Encephalopathy due to antipsychotic drugs [ ] JUAN on ESRD [ ] Metabolic encephalopathy of unknown etiology [ ] Other diagnosis please specify [ ] Unable to determine In addition, please specify: Present on Admission (POA): [ ] Yes [ ] No [ ] Unable to determine For continuity of documentation, please document condition throughout progress notes and discharge summary. Thank You. CLINICAL INDICATORS - SIGNS! SYMPTOMS I LABS PN 05/10 Dr. Alas pg.1-"persistent encephalopathy likely multifactorial including ESRD, uremia, dementia" H and P pg.1- "altered mental status" H and P pg.3- "metabolic encephalopathy on baseline dementia" Consult Dr. Jo 05/04 pg.1- "variable mental status with transient expressive aphasia suggesting the possibility of subclinical seizure" Consult Dr. Jo 05/07 pg.1.- I do not have any new ideas as to why [place] [id number] [place]. House- "acute encephalopathy- unknown cause" PN 05/07 Dr. Sainz- "decreased mentation secondary to his antipsychotic medication " Hospitalist PN Dr. Parkinson 05/16 pg.9"altered mental status is reportedly improved since starting antiepileptic drug- waxes and wanes" RISK FACTORS Hypertension- H and P pg.2 Diabetes Mellitus H and P pg.1 ESRD- H and P pg.1 Dementia- H and P pg.1 Chronic systolic CHF- H and P pg.1 79 years old- H and P pg.1 TREATMENTS: Keppra 500,g twice a day-Consult Dr. Jo pg.1 Electrophysiology procedure [id number] Brain MRI [id number] Dr. Turcios Neurology Consult Dr. Jo IV Fluids MAR (This form is maintained as a part of the permanent medical record) 2014 [employer], [employer]. All Rights Reserved Rodríguez [email or web address] [not provided] MTDD
[2019-06-13] MEDS ORDERED: Heparin 10,000 UNITS/ 10 ML VIAL ONE (13:53)
== END 2019-05-17 17:47 | disposition hospice, inpatient (51) | DRG 70 ==
LOC: ERS 16:37 → 2SE 21:38 → OBSVTOIN 05-05 11:43
PROVIDERS: ADMIT Internal Medicine; ATTEND Internal Medicine
PROC: 5A1D70Z Performance of Urinary Filtration, Intermittent, Less than 6 Hours Per Day (ICD-10-PCS; principal; 2019-05-05)
PROC: 0DH63UZ Insertion of Feeding Device into Stomach, Percutaneous Approach (ICD-10-PCS; 2019-05-12)
PROC: 3E033XZ Introduction of Vasopressor into Peripheral Vein, Percutaneous Approach (ICD-10-PCS; 2019-05-16)
DX: G93.41 Metabolic encephalopathy (principal); N18.6 End stage renal disease; I13.2 Hypertensive heart and chronic kidney disease with heart failure and with stage 5 chronic kidney disease, or end stage renal disease; I50.42 Chronic combined systolic (congestive) and diastolic (congestive) heart failure; J96.11 Chronic respiratory failure with hypoxia; D62 Acute posthemorrhagic anemia; K92.2 Gastrointestinal hemorrhage, unspecified; E46 Unspecified protein-calorie malnutrition; G40.909 Epilepsy, unspecified, not intractable, without status epilepticus; Z66 Do not resuscitate; Z51.5 Encounter for palliative care; E11.22 Type 2 diabetes mellitus with diabetic chronic kidney disease; I25.10 Atherosclerotic heart disease of native coronary artery without angina pectoris; E78.5 Hyperlipidemia, unspecified; D63.1 Anemia in chronic kidney disease; F03.90 Unspecified dementia, unspecified severity, without behavioral disturbance, psychotic disturbance, mood disturbance, and anxiety; E11.51 Type 2 diabetes mellitus with diabetic peripheral angiopathy without gangrene; J44.9 Chronic obstructive pulmonary disease, unspecified; G47.00 Insomnia, unspecified; K59.00 Constipation, unspecified; E11.69 Type 2 diabetes mellitus with other specified complication; E66.9 Obesity, unspecified; R13.12 Dysphagia, oropharyngeal phase; E87.70 Fluid overload, unspecified; E11.65 Type 2 diabetes mellitus with hyperglycemia; D72.829 Elevated white blood cell count, unspecified; Z99.81 Dependence on supplemental oxygen; E83.39 Other disorders of phosphorus metabolism; I95.9 Hypotension, unspecified; I69.391 Dysphagia following cerebral infarction; Z68.26 Body mass index [BMI] 26.0-26.9, adult; Z89.512 Acquired absence of left leg below knee; Z89.511 Acquired absence of right leg below knee; Z99.2 Dependence on renal dialysis; Z79.51 Long term (current) use of inhaled steroids; Z95.1 Presence of aortocoronary bypass graft; Z88.8 Allergy status to other drugs, medicaments and biological substances; Z88.5 Allergy status to narcotic agent; Z79.82 Long term (current) use of aspirin; Z79.4 Long term (current) use of insulin; Z79.899 Other long term (current) drug therapy; E11.42 Type 2 diabetes mellitus with diabetic polyneuropathy; Z87.891 Personal history of nicotine dependence
CPT/HCPCS: 36415; 36416; 70450; 70551; 71045; 74230; 80048; 80053; 80076; 80202; 81001; 82140; 82533; 82553; 82607; 82805; 83605; 84100; 84443; 84484; 85007; 85025; 85027; 86780; 87040; 87340; 87633; 87798; 90935; 93005; 93880; 94640; 95816; 95819; C9113; G0257; J0690; J0692; J0696; J1265; J1644; J1815; J1953; J2704; J2920; J3370; J3486; J3490; J7050; J7620; P9047; Q5105; S0028